=== PATIENT | female | born 1940 | race Caucasian/White ===

== ENCOUNTER 2016-04-01 11:50 | Outpatient (RCR) | payer MEDICARE, MEDICAID ==
[~2016-04-01 11:50] MED LIST: AMIO200T2 PO; AMLO5TAB2 PO; ASCO-262 PO; ASPI-586 PO; ATOR40TA70 PO; CHOL500049 PO; CINA60TA PO; CLOM50CA2 PO; ESZO1TAB11; LISI10TA2 PO; METO-333 PO; MULT1TAB65 PO; NITR0.4T39 SL; OMEP20CA12 PO; SEVE800T7 PO; SODI454P4; WARF2TAB PO; WARF3TAB6 PO
--- OUTSIDE RECORDS SUMMARY | 2016-04-01 11:54 | XMS REPORT | Continuity of Care Document ---
Author Author [facility] Organization [facility] Address Unknown Phone Unavailable Care Team Providers Care Imaging Clerk Name Role Phone Aric Escoto PCP [phone] Source Comments Some departments are not documenting in the electronic medical record. If you do not see the information that you expected, contact Release of Information in the Health Information Management department at [phone] for further assistance in locating additional records.[facility] Active Allergies and Adverse Reactions Allergen Noted Date Severity Reactions Comments Betadine 10/20/2012 RASH Pcn 10/20/2012 RASH Zantac 10/20/2012 RASH Current Medications Prescription Sig. Disp. Refills Start End Date Status Date clomiPRAMINE(+) Take 100 mg by mouth at Active (ANAFRANIL) 50 mg capsule bedtime daily. cinacalcet (SENSIPAR) 90 Take 90 mg by mouth daily Active mg with breakfast. nebivolol (BYSTOLIC) 10 Take 10 mg by mouth Active mg tablet daily. atorvastatin (LIPITOR) 20 Take 20 mg by mouth Active mg tablet daily. aspirin EC 81 mg tablet Take 81 mg by mouth Active daily. Active Problems Problem Noted Date Hypertension 10/20/2012 Hyperlipidemia 10/20/2012 Pre-transplant evaluation for ESRD (end stage renal disease) 10/20/2012 Bipolar 1 disorder (HCC) 10/20/2012 OCD (obsessive compulsive disorder) 10/20/2012 GERD (gastroesophageal reflux disease) 10/20/2012 Type 2 diabetes mellitus (HCC) 10/20/2012 Overview: Diet controlled CVA (cerebral infarction) 10/20/2012 Overview: Subcortical infarct (L) Social History Tobacco Use Types Packs/Day Years Used Date Never Smoker Alcohol Use Drinks/Week oz/Week Comments No Last Filed Vital Signs Vital Sign Reading Time Taken Blood Pressure 148/76 10/21/2012 8:46 AM CDT Pulse 84 10/21/2012 8:46 AM CDT Temperature - - Respiratory Rate - - Height 1.651 m (5' 5") 10/21/2012 11:12 AM CDT Weight 54.432 kg (120 lb) 10/21/2012 11:12 AM CDT Body Mass Index 19.97 10/21/2012 11:12 AM CDT Oxygen Saturation - - Plan of Care Health Maintenance Due Date Last Done Comments Physical (Comprehensive) 06/18/1947 Exam Pertussis Vaccine [birth year]/1951 Tetanus Vaccine 1957 Colorectal Cancer 1990 Screening Shingles Vaccine 2000 Osteoporosis Screening 2005 Prevnar/Pneumovax (#1) 2005 Influenza Vaccine 11/28/2015 Results from Last 3 Months Not on file
== END 2016-06-30 | disposition home or self-care (01) ==
LOC: CARD 11:50
PROVIDERS: ATTEND Internal Medicine Interventional Cardiology
DX: I48.91 Unspecified atrial fibrillation (principal); I35.1 Nonrheumatic aortic (valve) insufficiency; I27.2 Other secondary pulmonary hypertension
CPT/HCPCS: 93225; 93226

== ENCOUNTER 2016-10-25 08:05 | Emergency (ER) | payer MEDICARE, MEDICAID ==
[~2016-10-25] VITALS: Ht 162.6 cm; Wt 59.0 kg
[2016-10-25] MEDS ORDERED: NS (IVPB) 250 ML IV ONE (08:32)
--- NOTE | 2016-10-25 08:32 | ED General ---
General Chief Complaint: Catheter/Drain/Tube Problems Stated Complaint: DIALYSIS PORT BLEEDING Nursing Triage Note: Pt woke up in the middle of the night with bleeding to right arm shunt. Hx of dialysis. Nursing Sepsis Screen: No Definite Risk Source of Information: Patient, Family (brother) Exam Limitations: No Limitations History of Present Illness Time Seen by Provider: 08:27 Initial Comments Patient has ER by private conveyance with her brother with a chief complaint of waking up this morning feeling wet and had some bleeding from her right arm dialysis shunt. She has been on dialysis Wednesday for about 10 years. She's never has had before. She has not had any bleeding in the urine or chest pain or shortness of breath. However spell little winded walking in today. She feels a little weak and tired this morning. She does have a history of being chronically anemic. She is not having he murmurs chills nausea vomiting or pain anywhere. And the bleeding is stopped with a small dressing applied at home. She lives alone. Allergies and Home Medications Allergies Coded Allergies: Penicillins (Verified Allergy, Unknown, 02/03/16) Sulfa (Sulfonamide Antibiotics) (Verified Allergy, Unknown, 02/03/16) Home Medications Amiodarone HCl 200 Mg Tablet, 200 MG PO BID, (Reported) Atorvastatin Calcium 40 Mg Tablet, 40 MG PO DAILY, (Reported) Cinacalcet HCl 60 Mg Tablet, 60 MG PO BID, (Reported) Clomipramine HCl 50 Mg Capsule, 50 MG PO BID, (Reported) Metoprolol Tartrate 25 Mg Tablet, 25 MG PO BID, (Reported) HAS NOT BEEN TAKING PRESCRIBED RECENTLY BECAUSE OF LOW BLOOD PRESSURE LAST FILLED #180 08-19-15 Sevelamer Carbonate 800 Mg Tablet, 1,600 MG PO TIDWM, (Reported) TAKES 2 (800MG) TABLETS Warfarin Sodium 3 Mg Tablet, 3 MG PO DAILY, (Reported) Constitutional: No chills, No diaphoresis, No dizziness, No fever, malaise, No weakness Respiratory: No short of breath Cardiovascular: No chest pain, No palpitations, No syncope Gastrointestinal: No constipation, No diarrhea, No nausea Genitourinary: No discharge, No dysuria Skin: see HPI, No pruritus, No rash Psychiatric/Neurological: Denies Headache, Denies Numbness Past Ejbfwbx-Ckhjgu-Vytzxh Hx Patient Social History Alcohol Use: Denies Use Recreational Drug Use: No Smoking Status: Never a Smoker Recent Foreign Travel: No Contact w/Someone Who Travel: No Recent Infectious Disease Expo: No Recent Hopitalizations: No Immunizations Up To Date Date of Pneumonia Vaccine: Jan 04, 2012 Date of Influenza Vaccine: Jan 31, 2016 Seasonal Allergies Seasonal Allergies: No Surgeries HX Surgeries: Yes (DIALYSIS GRAFT/SHUNT RIGHT UPPER ARM; RIGHT KNEE TUMOR REMOVAL ) Surgeries: Dialysis, Vascular Surgery Respiratory Hx Respiratory Disorders: No Cardiovascular Hx Cardiac Disorders: Yes Cardiac Disorders: Heart Murmur Neurological Hx Neurological Disorders: No Reproductive System Hx Reproductive Disorders: No Genitourinary Hx Genitourinary Disorders: Yes Genitourinary Disorders: Renal Failure, Dialysis Gastrointestinal Hx Gastrointestinal Disorders: No Musculoskeletal Hx Musculoskeletal Disorders: No Endocrine Hx Endocrine Disorders: No HEENT HX ENT Disorders: No Cancer Hx Cancer: No Psychosocial Hx Psychiatric Problems: No Integumentary HX Skin/Integumentary Disorder: No Blood Transfusions Hx Blood Disorders: No Adverse Reaction to a Blood Tr: No Family Medical History Significant Family History: No Pertinent Family Hx Physical Exam Vital Signs Vital Sign - Last 12Hours 10/25/16 08:25 Temp 98.1 Pulse 70 Resp 18 B/P (MAP) 136/60 O2 Delivery Room Air Capillary Refill : Less Than 3 Seconds General Appearance: No Apparent Distress, WD/WN Respiratory: Chest Non Tender, Lungs Clear, Normal Breath Sounds Cardiovascular: Regular Rate, Rhythm, No Edema, Normal Peripheral Pulses, Systolic Murmur, Other (very palpable thrill over all parts of the AV fistula on the right arm) Gastrointestinal: Non Tender, Soft Extremity: Normal Capillary Refill, Non Tender Neurologic/Psychiatric: Alert, Oriented x3 Skin: Normal Color, Warm/Dry, Other (2 small punctate dry hemostatic wounds over the right AV fistula.) Progress/Results/Core Measures Results/Orders Lab Results Laboratory Tests Test 10/25/16 08:55 Range/Units White Blood Count 5.9 4.3-11.0 10^3/uL Red Blood Count 3.72 L 4.35-5.85 10^6/uL Hemoglobin 11.6 11.5-16.0 G/DL Hematocrit 36 35-52 % Mean Corpuscular Volume 97 80-99 FL Mean Corpuscular Hemoglobin 31 25-34 PG Mean Corpuscular Hemoglobin Concent 32 32-36 G/DL Red Cell Distribution Width 16.8 H 10.0-14.5 % Platelet Count 174 130-400 10^3/uL Mean Platelet Volume 11.0 H 7.4-10.4 FL Neutrophils (%) (Auto) 67 42-75 % Lymphocytes (%) (Auto) 13 12-44 % Monocytes (%) (Auto) 10 0-12 % Eosinophils (%) (Auto) 9 0-10 % Basophils (%) (Auto) 1 0-10 % Neutrophils # (Auto) 3.9 1.8-7.8 X 10^3 Lymphocytes # (Auto) 0.8 L 1.0-4.0 X 10^3 Monocytes # (Auto) 0.6 0.0-1.0 X 10^3 Eosinophils # (Auto) 0.5 H 0.0-0.3 10^3/uL Basophils # (Auto) 0.1 0.0-0.1 10^3/uL Prothrombin Time 17.2 H 12.2-14.7 SEC INR Comment 1.4 0.8-1.4 Activated Partial Thromboplast Time 30 24-35 SEC Sodium Level 137 135-145 MMOL/L Potassium Level 5.4 H 3.6-5.0 MMOL/L Chloride Level 96 L 98-107 MMOL/L Carbon Dioxide Level 30 21-32 MMOL/L Anion Gap 11 5-14 MMOL/L Blood Urea Nitrogen 47 H 7-18 MG/DL Creatinine 4.43 H 0.60-1.30 MG/DL Estimat Glomerular Filtration Rate 10 BUN/Creatinine Ratio 11 Glucose Level 118 H 70-105 MG/DL Calcium Level 10.5 H 8.5-10.1 MG/DL Magnesium Level 3.0 H 1.8-2.4 MG/DL Total Bilirubin 0.4 0.1-1.0 MG/DL Aspartate Amino Transf (AST/SGOT) 20 5-34 U/L Alanine Aminotransferase (ALT/SGPT) 14 0-55 U/L Alkaline Phosphatase 80 40-136 U/L Troponin I < 0.30 <0.30 NG/ML Total Protein 6.8 6.4-8.2 GM/DL Albumin 3.7 3.2-4.5 GM/DL My Orders Orders - ENRICO LINDSEY Cbc With Automated Diff (10/25/16 08:32) Comprehensive Metabolic Panel (10/25/16 08:32) Magnesium (10/25/16 08:32) Protime With Inr (10/25/16 08:32) Partial Thromboplastin Time (10/25/16 08:32) Troponin I (10/25/16 08:32) Saline Lock/Iv-Start (10/25/16 08:32) Ns (Ivpb) (Sodium Chloride 0.9%) (10/25/16 08:32) Type And Screen (10/25/16 08:32) Medications Given in ED Current Medications Medications Dose Ordered Sig/Nisha Route Start Time Stop Time Status Last Admin Dose Admin Sodium Chloride 250 ml @ 0 mls/hr Q0M ONCE IV 10/25/16 08:32 10/25/16 08:36 DC 10/25/16 09:14 0 MLS/HR Vital Signs/I&O Vital Sign - Last 12Hours 10/25/16 08:25 Temp 98.1 Pulse 70 Resp 18 B/P (MAP) 136/60 O2 Delivery Room Air Blood Pressure Mean: 85 Progress Note : Time: 09:22 Progress Note She's had a small bleed after being cannulae Wednesday morning for her hemodialysis. We'll just make sure that her PT/INR is okay her platelets are okay and is she's not bled out enough to be hemodynamically significant. Initially her hemoglobin is 11.6 which is fine. The blood for the type and screen hemolyzed so we'll just cancel that. Departure Impression Impression: Primary Impression: AV shunt malfunction Qualified Codes: T82.591A - Other mechanical complication of surgically created arteriovenous shunt, initial encounter Disposition: 01 HOME, SELF-CARE Condition: Stable Departure-Patient Inst. Decision time for Depature: 10:13 Referrals: NALLELY SOLIMAN MD (PCP/Family) Primary Care Physician Patient Instructions: Arteriovenous Shunt (DC) Add. Discharge Instructions: Your bleeding has appeared to stop. You may keep the dressing on until it falls off in the shower tonight. If you have any rebleeding you should present to your primary care physician tomorrow. If you have any new symptoms such as chest pain or shortness of breath you can return to the ER. If you do have bleeding apply direct firm pressure directly over the site and hold the arm above the level of your heart for 20 minutes. If you cannot get the bleeding under control then you may return to the ER. All discharge instructions reviewed with patient and/or family. Voiced understanding. Copy Copies To 1: NALLELY SOLIMAN MD, TITUS J Oct 25, 2016 08:32
[2016-10-25 09:11] LABS: BASOPHILS # (AUTO) 0.1 10^3/uL (0.0-0.1); BASOPHILS % (AUTO) 1 % (0-10); EOSINOPHILS # (AUTO) 0.5 10^3/uL (0.0-0.3); EOSINOPHILS % (AUTO) 9 % (0-10); LYMPHOCYTES # (AUTO) 0.8 X 10^3 (1.0-4.0); LYMPHOCYTES % (AUTO) 13 % (12-44); MEAN CORPUSCULAR HEMOGLOBIN 31 PG (25-34); MEAN CORPUSCULAR HGB CONC 32 G/DL (32-36); MEAN CORPUSCULAR VOLUME 97 FL (80-99); MONOCYTES # (AUTO) 0.6 X 10^3 (0.0-1.0); MONOCYTES % (AUTO) 10 % (0-12); NEUTROPHILS # (AUTO) 3.9 X 10^3 (1.8-7.8); NEUTROPHILS % (AUTO) 67 % (42-75); PLATELET COUNT 174 10^3/uL (130-400); RED BLOOD COUNT 3.72 10^6/uL (4.35-5.85); RED CELL DISTRIBUTION WIDTH 16.8 % (10.0-14.5); WHITE BLOOD COUNT 5.9 10^3/uL (4.3-11.0)
[2016-10-25 09:20] LABS: INR 1.4 (0.8-1.4); PROTHROMBIN TIME PATIENT 17.2 SEC (12.2-14.7)
[2016-10-25 09:28] LABS: ALANINE AMINOTRANSFERASE 14 U/L (0-55); ALBUMIN 3.7 GM/DL (3.2-4.5); ANION GAP 11 MMOL/L (5-14); ASPARTATE AMINO TRANSFERASE 20 U/L (5-34); BILIRUBIN,TOTAL 0.4 MG/DL (0.1-1.0); BLOOD UREA NITROGEN 47 MG/DL (7-18); BUN/CREATININE RATIO 11; CALCIUM 10.5 MG/DL (8.5-10.1); CARBON DIOXIDE 30 MMOL/L (21-32); CHLORIDE 96 MMOL/L (98-107); CREATININE SERUM 4.43 MG/DL (0.60-1.30); GFR ESTIMATED 10; GLUCOSE 118 MG/DL (70-105); POTASSIUM 5.4 MMOL/L (3.6-5.0); SODIUM 137 MMOL/L (135-145); TOTAL PROTEIN 6.8 GM/DL (6.4-8.2)
[2016-10-25 09:34] LABS: TROPONIN I < 0.30 NG/ML (<0.30)
[2016-10-25 10:40] VITALS: BP 134/68
== END 2016-10-25 10:40 | disposition home or self-care (01) ==
LOC: EDUNIT# 08:05 → ER 08:07
DX: T82.591A Other mechanical complication of surgically created arteriovenous shunt, initial encounter (principal); D64.9 Anemia, unspecified; N18.6 End stage renal disease; Z79.01 Long term (current) 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s; Z99.2 Dependence on renal dialysis
CPT/HCPCS: 36415; 80053; 83735; 84484; 85025; 85610; 85730; 96360

== ENCOUNTER 2016-12-01 11:34 | Emergency (ER) | payer MEDICARE, MEDICAID ==
[~2016-12-01] VITALS: Ht 165.1 cm; Wt 52.2 kg
[2016-12-01 11:48] LABS: BASOPHILS % (AUTO) 0 % (0-10); EOSINOPHILS # (AUTO) 0.3 10^3/uL (0.0-0.3); EOSINOPHILS % (AUTO) 4 % (0-10); LYMPHOCYTES # (AUTO) 0.9 X 10^3 (1.0-4.0); LYMPHOCYTES % (AUTO) 13 % (12-44); MEAN CORPUSCULAR HEMOGLOBIN 31 PG (25-34); MEAN CORPUSCULAR HGB CONC 33 G/DL (32-36); MEAN CORPUSCULAR VOLUME 96 FL (80-99); MEAN PLATELET VOLUME 10.6 FL (7.4-10.4); MONOCYTES # (AUTO) 0.4 X 10^3 (0.0-1.0); MONOCYTES % (AUTO) 6 % (0-12); NEUTROPHILS # (AUTO) 5.2 X 10^3 (1.8-7.8); NEUTROPHILS % (AUTO) 76 % (42-75); PLATELET COUNT 188 10^3/uL (130-400); RED BLOOD COUNT 3.77 10^6/uL (4.35-5.85); RED CELL DISTRIBUTION WIDTH 15.8 % (10.0-14.5); WHITE BLOOD COUNT 6.9 10^3/uL (4.3-11.0)
[2016-12-01 12:06] LABS: ALBUMIN 4.1 GM/DL (3.2-4.5); BILIRUBIN,TOTAL 0.4 MG/DL (0.1-1.0); CALCIUM 8.3 MG/DL (8.5-10.1); CREATININE SERUM 2.61 MG/DL (0.60-1.30); POTASSIUM 3.8 MMOL/L (3.6-5.0); TOTAL PROTEIN 7.2 GM/DL (6.4-8.2)
[2016-12-01 12:16] LABS: MAGNESIUM 2.2 MG/DL (1.8-2.4); hs C REACTIVE PROTEIN 0.14 MG/DL (0.00-0.50)
--- NOTE | 2016-12-01 12:20 | ED General ---
General Chief Complaint: General Problems/Pain Stated Complaint: POSSIBLE SEIZURES Nursing Triage Note: PT TO TRIAGE WINDOW CO OF HAVING EPISODES OF SHAKING STARTED YESTERDAY, PT IS DIALYSIS PT AND GETS TREATMENT TU THUS SAT. PT IS ALERT AND DENIES PAIN AT THIS X Nursing Sepsis Screen: No Definite Risk Source of Information: Patient Exam Limitations: No Limitations History of Present Illness Time Seen by Provider: 11:40 Initial Comments Here by POV with report of muscle twitching. Apparently this was worse during dialysis today. She has had episodes of this started yesterday. They thought that maybe her blood sugar was low and gave her juice in that made things better. She has worsening twitching today. There was concern about seizure but she is fully awake during all of this and its more of an involuntary twitching of her arms and legs. Denies recent injury or other problems. Timing/Duration: 2-3 Days, Getting Worse, Intermittent Severity: Mild Associated Systoms: No Chest Pain, No Cough, No Fever/Chills, No Nausea/ Vomiting, No Shortness of Air, No Weakness Allergies and Home Medications Allergies Coded Allergies: povidone-iodine (Verified Allergy, Mild, 12/01/16) ranitidine (Verified Allergy, Mild, 12/01/16) soap (Verified Allergy, Mild, 12/01/16) tetracycline (Verified Allergy, Mild, 12/01/16) Penicillins (Verified Allergy, Unknown, 02/03/16) Sulfa (Sulfonamide Antibiotics) (Verified Allergy, Unknown, 02/03/16) Uncoded Allergies: NARCOTIC (Allergy, Mild, 12/01/16) Home Medications Amiodarone HCl 200 Mg Tablet, 200 MG PO BID, (Reported) Atorvastatin Calcium 40 Mg Tablet, 40 MG PO DAILY, (Reported) Cinacalcet HCl 60 Mg Tablet, 60 MG PO BID, (Reported) Clomipramine HCl 50 Mg Capsule, 50 MG PO BID, (Reported) Metoprolol Tartrate 25 Mg Tablet, 25 MG PO BID, (Reported) HAS NOT BEEN TAKING PRESCRIBED RECENTLY BECAUSE OF LOW BLOOD PRESSURE LAST FILLED #180 08-19-15 Sevelamer Carbonate 800 Mg Tablet, 1,600 MG PO TIDWM, (Reported) TAKES 2 (800MG) TABLETS Warfarin Sodium 3 Mg Tablet, 6 MG PO DAILY, (Reported) Constitutional: see HPI, No chills, No fever EENTM: no symptoms reported Respiratory: no symptoms reported Cardiovascular: no symptoms reported Gastrointestinal: no symptoms reported Musculoskeletal: see HPI, muscle twitching, No muscle weakness Skin: no symptoms reported Psychiatric/Neurological: No Symptoms Reported All Other Systems Reviewed Negative Unless Noted: Yes Past Zmadqsx-Yqrtkn-Qpvjnp Hx Patient Social History Alcohol Use: Denies Use Recreational Drug Use: No Smoking Status: Never a Smoker Recent Foreign Travel: No Contact w/Someone Who Travel: No Recent Infectious Disease Expo: No Recent Hopitalizations: No Physical Abuse: No Sexual Abuse: No Immunizations Up To Date Date of Pneumonia Vaccine: Jan 04, 2012 Date of Influenza Vaccine: Jan 31, 2016 Seasonal Allergies Seasonal Allergies: No Surgeries History of Surgeries: Yes (DIALYSIS GRAFT/SHUNT RIGHT UPPER ARM; RIGHT KNEE TUMOR REMOVAL ) Surgeries: Dialysis, Vascular Surgery Respiratory History of Respiratory Disorde: No Currently Using CPAP: No Currently Using BIPAP: No Cardiovascular History of Cardiac Disorders: Yes Cardiac Disorders: Heart Murmur Neurological History of Neurological Disord: No Reproductive System Hx Reproductive Disorders: No Genitourinary Genitourinary Disorders: Renal Failure, Dialysis Gastrointestinal History of Gastrointestinal Di: No Musculoskeletal History of Musculoskeletal Dis: No Endocrine History of Endocrine Disorders: No Cancer History of Cancer: No Psychosocial History of Psychiatric Problem: No Suicide Risk Score: 0 Integumentary History of Skin or Integumenta: No Blood Transfusions History of Blood Disorders: No Adverse Reaction to a Blood Tr: No Reviewed Nursing Assessment Reviewed/Agree w Nursing PMH: Yes Family Medical History Significant Family History: No Pertinent Family Hx Physical Exam Vital Signs Vital Sign - Last 12Hours 12/01/16 11:43 Temp 97.8 Pulse 73 Resp 18 B/P (MAP) 134/52 Pulse Ox 92 O2 Delivery Room Air Capillary Refill : Less Than 3 Seconds General Appearance: No Apparent Distress, WD/WN, Other (intermittent involuntary muscle twitching to the upper and lower extremities noted.) HEENT: PERRL/EOMI, Pharynx Normal Neck: Non Tender, Supple Respiratory: Lungs Clear, Normal Breath Sounds Cardiovascular: Regular Rate, Rhythm, No Murmur Gastrointestinal: Non Tender, Soft Back: Normal Inspection, No CVA Tenderness, No Vertebral Tenderness Extremity: Normal Range of Motion, Non Tender Neurologic/Psychiatric: Alert, Oriented x3, No Motor/Sensory Deficits Skin: Normal Color, Warm/Dry Progress/Results/Core Measures Results/Orders Lab Results Laboratory Tests Test 12/01/16 11:38 12/01/16 11:40 Range/Units Magnesium Level 2.2 1.8-2.4 MG/DL C-Reactive Protein High Sensitivity 0.14 0.00-0.50 MG/DL Thyroid Stimulating Hormone (TSH) 2.23 0.35-4.94 UIU/ML White Blood Count 6.9 4.3-11.0 10^3/uL Red Blood Count 3.77 L 4.35-5.85 10^6/uL Hemoglobin 11.8 11.5-16.0 G/DL Hematocrit 36 35-52 % Mean Corpuscular Volume 96 80-99 FL Mean Corpuscular Hemoglobin 31 25-34 PG Mean Corpuscular Hemoglobin Concent 33 32-36 G/DL Red Cell Distribution Width 15.8 H 10.0-14.5 % Platelet Count 188 130-400 10^3/uL Mean Platelet Volume 10.6 H 7.4-10.4 FL Neutrophils (%) (Auto) 76 H 42-75 % Lymphocytes (%) (Auto) 13 12-44 % Monocytes (%) (Auto) 6 0-12 % Eosinophils (%) (Auto) 4 0-10 % Basophils (%) (Auto) 0 0-10 % Neutrophils # (Auto) 5.2 1.8-7.8 X 10^3 Lymphocytes # (Auto) 0.9 L 1.0-4.0 X 10^3 Monocytes # (Auto) 0.4 0.0-1.0 X 10^3 Eosinophils # (Auto) 0.3 0.0-0.3 10^3/uL Basophils # (Auto) 0.0 0.0-0.1 10^3/uL Sodium Level 140 135-145 MMOL/L Potassium Level 3.8 3.6-5.0 MMOL/L Chloride Level 93 L 98-107 MMOL/L Carbon Dioxide Level 33 H 21-32 MMOL/L Anion Gap 14 5-14 MMOL/L Blood Urea Nitrogen 14 7-18 MG/DL Creatinine 2.61 H 0.60-1.30 MG/DL Estimat Glomerular Filtration Rate 18 BUN/Creatinine Ratio 5 Glucose Level 112 H 70-105 MG/DL Calcium Level 8.3 L 8.5-10.1 MG/DL Total Bilirubin 0.4 0.1-1.0 MG/DL Aspartate Amino Transf (AST/SGOT) 19 5-34 U/L Alanine Aminotransferase (ALT/SGPT) 17 0-55 U/L Alkaline Phosphatase 83 40-136 U/L Total Protein 7.2 6.4-8.2 GM/DL Albumin 4.1 3.2-4.5 GM/DL My Orders Orders - SANDRA MASON MD Hs C Reactive Protein (12/01/16 11:45) Magnesium (12/01/16 11:45) Thyroid Stimulating Hormone (12/01/16 11:45) Ct Head Wo (12/01/16 13:39) Vital Signs/I&O Vital Sign - Last 12Hours 12/01/16 11:43 Temp 97.8 Pulse 73 Resp 18 B/P (MAP) 134/52 Pulse Ox 92 O2 Delivery Room Air Blood Pressure Mean: 79 Progress Note : Progress Note Seen and evaluated. IV, labs, chest x-ray and EKG ordered. UA ordered and we will evaluate if she is able to give sample. Patient typically only urinates twice daily due to the renal failure. Monitor patient. 1415: CT head ordered and completed due to patient's report that symptoms improve when she landed down and better worse when sitting up at times. Results below. Overall no significant acute findings. This may be related to medication side effect. She will be referred back to her physician for review of her medications and adjustments as indicated. Patient and family verbalize understanding and agreement with plan. ECG Initial ECG Impression Date: Dec 01, 2016 Initial ECG Impression Time: 11:49 Initial ECG Rate: 72 Initial ECG Rhythm: Normal Sinus Comment Sinus rhythm with normal axis. No evidence of ST elevation FL. Left ventricular hypertrophy noted. No previous available for comparison. Interpreted by me. Diagnostic Imaging Diagonstic Imaging: Xray Plain Films/CT/US/NM/MRI: chest Comments NAME: DARNELL FRANKLIN MED REC#: [id number] PT STATUS: REG ER : 1940 PHYSICIAN: ANDREW SIERRA APRN ADMIT DATE: 12/01/16/ER Signed Date of Exam: 12/01/16 CHEST 1 VIEW, AP/PA ONLY INDICATION: Shaking, questionable seizure. Comparison made with prior examination from 02/12/16. FINDINGS: There's cardiomegaly. There is some venous congestion. There is a focal infiltrate in the right lung base. There is no pleural effusion or pneumothorax. The mediastinum is unremarkable. IMPRESSION: Unchanged focal infiltrate in the right lung base which may be chronic. Cardiomegaly and mild venous congestion. Dictated by: Dictated on workstation # [id number] Dict: 12/01/16 1214 Trans: 12/01/16 1338 Interpreted by: JOSE BAHENA MD Electronically signed by: JOSE BAHENA MD 12/01/16 1338 Diagonstic Imaging: CT Plain Films/CT/US/NM/MRI: head Comments E: DARNELL FRANKLIN MED REC#: [id number] PT STATUS: REG ER : 1940 PHYSICIAN: SANDRA MASON MD ADMIT DATE: 12/01/16/ER Signed Date of Exam: 12/01/16 CT HEAD WO PROCEDURE: CT head without contrast. TECHNIQUE: Multiple contiguous axial images were obtained through the brain without the use of intravenous contrast. INDICATION: Jerking and shaking with possible seizure. No prior examinations are available for comparison. FINDINGS: There is prominence of the ventricles and sulci. There is no hydrocephalus or cerebral edema. There is no midline shift or mass-effect. There is no intracranial mass, hemorrhage, or extra-axial fluid collection. There is some diffuse decreased attenuation of the periventricular white matter which is nonspecific. The visualized paranasal sinuses and mastoid air cells are clear. There are no regional areas of decreased attenuation appreciated to suggest an acute CVA. IMPRESSION: 1. No acute intracranial process. 2. Age-appropriate atrophy. 3. Decreased attenuation of the periventricular white matter which is nonspecific, however, likely reflects senescent change and/or chronic small vessel ischemic disease. Dictated by: Dictated on workstation # [id number] Dict: 12/01/16 1358 Trans: 12/01/16 1403 Interpreted by: JOSE BAHENA MD Electronically signed by: JOSE BAHENA MD 12/01/16 1403 Departure Impression Impression: Primary Impression: involuntary muscle twitching Disposition: 01 HOME, SELF-CARE Condition: Stable Departure-Patient Inst. Decision time for Depature: 14:21 Referrals: NALLELY SOLIMAN MD (PCP/Family) Primary Care Physician Patient Instructions: Muscle Spasms (DC) Add. Discharge Instructions: All discharge instructions reviewed with patient and/or family. Voiced understanding. We were unable to determine a cause of your muscle twitching or fasciculations. This may be related to the medications that you are on. It is important that he follow up with your Dr. for recheck and further evaluation within the next few days to discuss concerns and evaluate her medicines. Return for worse pain , fever, vomiting, weakness, breathing problems or other concerns as needed. Copy Copies To 1: NALLELY SOLIMAN MD, TIMOTHY D MD Dec 01, 2016 12:20
[2016-12-01 12:28] LABS: THYROID STIMULATING HORMONE 2.23 UIU/ML (0.35-4.94)
--- NOTE | 2016-12-01 14:01 | Diagnostic Imaging Report ---
PROCEDURE: CT head without contrast. TECHNIQUE: Multiple contiguous axial images were obtained through the brain without the use of intravenous contrast. INDICATION: Jerking and shaking with possible seizure. No prior examinations are available for comparison. FINDINGS: There is prominence of the ventricles and sulci. There is no hydrocephalus or cerebral edema. There is no midline shift or mass-effect. There is no intracranial mass, hemorrhage, or extra-axial fluid collection. There is some diffuse decreased attenuation of the periventricular white matter which is nonspecific. The visualized paranasal sinuses and mastoid air cells are clear. There are no regional areas of decreased attenuation appreciated to suggest an acute CVA. IMPRESSION: 1. No acute intracranial process. 2. Age-appropriate atrophy. 3. Decreased attenuation of the periventricular white matter which is nonspecific, however, likely reflects senescent change and/or chronic small vessel ischemic disease. Dictated by: Dictated on workstation # [id number]
[2016-12-01 15:04] VITALS: BP 134/52
== END 2016-12-01 15:03 | disposition home or self-care (01) ==
LOC: EDUNIT# 11:34 → ER 11:38
DX: R25.3 Fasciculation (principal); N18.6 End stage renal disease; Z99.2 Dependence on renal dialysis; Z79.01 Long term (current) 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s
CPT/HCPCS: 36415; 70450; 71010; 80053; 83735; 84443; 85025; 86141; 93005

== ENCOUNTER 2016-12-05 11:56 | Inpatient (IN) | payer MEDICARE, MEDICAID ==
[~2016-12-05] VITALS: Ht 165.1 cm; Wt 51.0 kg
--- OUTSIDE RECORDS SUMMARY | 2016-12-05 12:00 | XMS REPORT ---
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 056829 Problem Kidney failure N19 Active 63429385 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.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 288142774 Problem Chronic fatigue R53.82 Active 11538158 Problem End stage renal disease N18.6 Active 26526792 Problem Valvular heart disease I38 Active 361867 Problem 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 871181525 Problem 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 535427922 ALLERGIES Substance Reaction Event Type Date Status Zantac Unknown Drug Allergy Feb, Active Tetracycline HCl Unknown Drug Allergy Feb, Active Sulfamethoxazole-Trimethoprim Unknown Drug Allergy Feb, Active Penicillin V Potassium Unknown Drug Allergy Feb, Active Betadine Unknown Drug Allergy Feb, Active narcotics avoid them Non Drug Allergy Feb, Active SOCIAL HISTORY No smoking Hx information available PLAN OF CARE Activity Details Follow Up 2 Months with kalpana Reason: VITAL SIGNS Height 67 in 2016-03-19 Weight 111.9 lbs 2016-03-19 Temperature 97.8 degrees Fahrenheit 2016-03-19 Heart Rate 58 bpm 2016-03-19 Respiratory Rate 18 2016-03-19 BMI 17.52 kg/m2 2016-03-19 Blood pressure systolic 122 mmHg 2016-03-19 Blood pressure diastolic 67 mmHg 2016-03-19 MEDICATIONS Medication Instructions Dosage Frequency Start Date End Date Duration Status Amiodarone HCl 200 mg Orally twice a day 1 tablet 12h Active Renvela 800 MG Orally Three times a day 2 tablets 8h 20 Active ClomiPRAMINE HCl 50 mg Orally Once a day 2 capsules 24h Active Metoprolol Tartrate 25 MG Orally Twice a day 1 tablet with food 12h Active Coumadin 3 MG Orally Once a day along with the 1mg coumadin tablet 1 tablet Active Amiodarone HCl 200 TAKE 1 TABLET BY MOUTH TWICE DAILY 30 Active Coumadin 1 MG Orally Once a day along with the 3mg tablet 1 tablet 30 Active Sensipar 60 mg Orally Once a day 2 tablets 24h Active RESULTS Name Result Date Reference Range INR (IN HOUSE) 2016-03-19 INR 1.7 1.10 - 3.30 PREVIOUS INR 1.8 CURRENT COUMADIN DOSE NEW COUMADIN DOSE Lot # [id number] Exp date PROCEDURES Procedure Date Ordered Related Diagnosis Body Site PROTHROMBIN TIME Mar 19, 2016 [facility] VISIT ESTABLISHED PATIENT Mar 19, 2016 Office Visit, Est Pt., Level 4 Mar 19, 2016 IMMUNIZATIONS No Known Immunizations
--- OUTSIDE RECORDS SUMMARY | 2016-12-05 12:00 | XMS REPORT | Clinical Summary ---
Author Author [facility] Organization [facility] Address Unknown Phone Unavailable Care Team Providers Care Traveling Engineer Name Role Phone PCP Unavailable Source Comments Some departments are not documenting in the electronic medical record. If you do not see the information that you expected, contact Release of Information in the Health Information Management department at [phone] for further assistance in locating additional records.[facility] Allergies Active Allergy Reactions Severity Noted Date Comments Povidone-Iodine RASH 10/20/2012 Penicillins RASH 10/20/2012 Ranitidine Hcl RASH 10/20/2012 Current Medications Prescription Sig. Disp. Refills Start [...] (cerebral infarction) 10/20/2012 Overview: Subcortical infarct (L) Family History Medical History Relation Name Comments Hypertension Brother Hypertension Brother Coronary Artery Disease Father High Cholesterol Father Hypertension Father Seizures Father High Cholesterol Mother Hypertension Mother Stroke Mother Hypertension Sister Relation Name Status Comments Brother Alive Brother Alive Father Mother Sister Alive Social History Tobacco Use Types Packs/Day Years Used Date Never Smoker Alcohol Use Drinks/Week oz/Week Comments No Sex Assigned at Date Recorded Not on file Last Filed Vital Signs Vital Sign Reading Time Taken Blood Pressure 148/76 10/21/2012 8:46 AM CDT Pulse 84 10/21/2012 8:46 AM CDT Temperature - - Respiratory Rate - - Oxygen Saturation - - Inhaled Oxygen - - Concentration Weight 54.4 kg (120 lb) 10/21/2012 11:12 AM CDT Height 165.1 cm (5' 5") 10/21/2012 11:12 AM CDT Body Mass Index 19.97 10/21/2012 11:12 AM CDT Plan of Treatment Health Maintenance Due Date Last Done Comments PHYSICAL (COMPREHENSIVE) 06/18/1947 EXAM PERTUSSIS VACCINE 06/18/1951 TETANUS VACCINE 1957 SHINGLES VACCINE 2000 OSTEOPOROSIS SCREENING 2005 PREVNAR/PNEUMOVAX (#1) 2005 INFLUENZA VACCINE 11/27/2016 Results Not on filefrom Last 3 Months
--- OUTSIDE RECORDS SUMMARY | 2016-12-05 12:00 | XMS REPORT ---
Author Author OMAR CHAVEZ 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 026396 ALLERGIES Substance Reaction Event Type Date Status Zantac Unknown Drug Allergy Nov, Active Tetracycline HCl Unknown Drug Allergy Nov, Active Sulfamethoxazole-Trimethoprim Unknown Drug Allergy Nov, Active Penicillin V Potassium Unknown Drug Allergy Nov, Active Betadine Unknown Drug Allergy Nov, Active narcotics avoid them Non Drug Allergy Nov, Active SOCIAL HISTORY No smoking Hx information available PLAN OF CARE VITAL SIGNS Height 67 in 2015-12-19 Weight 112 lbs 2015-12-19 Heart Rate 62 bpm 2015-12-19 Respiratory Rate 16 2015-12-19 BMI 17.54 kg/m2 2015-12-19 Blood pressure systolic 90 mmHg 2015-12-19 Blood pressure diastolic 60 mmHg 2015-12-19 MEDICATIONS Medication Instructions Dosage Frequency Start Date End Date Duration Status Metoprolol Tartrate 25 MG Orally Twice a day 1 tablet with food 12h Active Lunesta 1 MG Orally hs, prn sleep 1 tablet immediately before bedtime Nov, Active Renvela 800 MG Orally Three times a day 2 tablets 8h Active ClomiPRAMINE HCl 50 mg Orally Once a day 2 capsules 24h Active Sensipar 60 mg Orally Once a day 2 tablets 24h Active Atorvastatin Calcium 40 MG Orally Once a day 1 tablet 24h Active RESULTS No Results PROCEDURES Procedure Date Ordered Related Diagnosis Body Site [facility] VISIT ESTABLISHED PATIENT Dec 19, 2015 Office Visit, Est Pt., Level 3 Dec 19, 2015 IMMUNIZATIONS No Known Immunizations
--- OUTSIDE RECORDS SUMMARY | 2016-12-05 12:00 | XMS REPORT ---
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
--- OUTSIDE RECORDS SUMMARY | 2016-12-05 12:00 | XMS REPORT ---
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 Problem Systolic ejection murmur I38 Active Problem Insomnia, unspecified type G47.00 Active Problem Kidney failure N19 Active Medications Medication Code System Code Instructions Start Date End Date Status Dosage Coumadin [facility] [address]-82 1 MG Orally Once a day along with the 3mg tablet Feb 25, 2016 1 tablet Procedures Procedure Coding System Code Date PROTHROMBIN TIME CPT-4 25865 Feb 25, 2016 Results Name Result Date Reference Range Unit Abnormality Flag INR (IN HOUSE) ----Exp date Feb [id number] ----Lot # [id number] ----INR 1.5 [id number] 1.10 - 3.30 ----PREVIOUS INR 1.5 [id number] ----CURRENT COUMADIN DOSE 3 mg qd [id number] ----NEW COUMADIN DOSE 4mg qd [id number] Summary Purpose [employer] Submission
--- OUTSIDE RECORDS SUMMARY | 2016-12-05 12:00 | XMS REPORT ---
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
--- OUTSIDE RECORDS SUMMARY | 2016-12-05 12:00 | XMS REPORT ---
Author Author OMAR CHAVEZ Organization [employer] Address Unknown Phone Unavailable Care Team Providers Care Network Operations Specialist Name Role Phone OMAR CHAVEZ CP Unavailable Allergies No Known Allergies Problems Problem Type Condition Code Onset Dates Condition Status Problem Hypotension, unspecified hypotension type I95.9 Active Problem Insomnia, unspecified type G47.00 Active Problem Atrial fibrillation, unspecified type I48.91 Active Problem Systolic ejection murmur I38 Active Assessment Atrial fibrillation, unspecified type I48.91 Active Problem Kidney failure N19 Active Problem 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
--- OUTSIDE RECORDS SUMMARY | 2016-12-05 12:01 | XMS REPORT ---
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
--- OUTSIDE RECORDS SUMMARY | 2016-12-05 12:01 | XMS REPORT ---
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 230857565 Problem Chronic fatigue R53.82 Active 74451000 Problem End stage renal disease N18.6 Active 55930381 Problem Valvular heart disease I38 Active 379321 Problem 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
--- OUTSIDE RECORDS SUMMARY | 2016-12-05 12:01 | XMS REPORT ---
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 923657670 Problem Chronic fatigue R53.82 Active 11223785 Problem End stage renal disease N18.6 Active 45072591 Problem Valvular heart disease I38 Active 363278 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
--- OUTSIDE RECORDS SUMMARY | 2016-12-05 12:01 | XMS REPORT ---
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
--- OUTSIDE RECORDS SUMMARY | 2016-12-05 12:01 | XMS REPORT ---
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 942889180 Problem Chronic fatigue R53.82 Active 83727542 Problem End stage renal disease N18.6 Active 59274821 Problem Valvular heart disease I38 Active 351985 Problem 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
--- OUTSIDE RECORDS SUMMARY | 2016-12-05 12:01 | XMS REPORT ---
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 813841 Problem Insomnia, unspecified type G47.00 Active 608132663 Problem exterminator termite 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 Z79.01 Active 229057532 Problem Chronic fatigue R53.82 Active 55720825 Problem End stage renal disease N18.6 Active 61998574 Problem Valvular heart disease I38 Active 174543 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
--- OUTSIDE RECORDS SUMMARY | 2016-12-05 12:01 | XMS REPORT ---
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
--- OUTSIDE RECORDS SUMMARY | 2016-12-05 12:01 | XMS REPORT ---
Author Author NALLELY SOLIMAN Organization [employer] Address Unknown Phone Unavailable Care Team Providers Care Underwriting Account Representative Name Role Phone NALLELY SOLIMAN CP Unavailable [...] Active Problem Kidney failure N19 Active Medications No Known Medications Results No Known Results Summary Purpose [employer] Submission
--- OUTSIDE RECORDS SUMMARY | 2016-12-05 12:01 | XMS REPORT ---
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
--- OUTSIDE RECORDS SUMMARY | 2016-12-05 12:01 | XMS REPORT ---
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
--- OUTSIDE RECORDS SUMMARY | 2016-12-05 12:01 | XMS REPORT ---
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 009567 Assessment Atrial fibrillation, unspecified type I48.91 Feb, Active 35042472 Problem End stage renal disease N18.6 Active 53342289 Problem Valvular heart disease I38 Active 630882 Problem Insomnia, unspecified type G47.00 Active 570682050 Problem Kidney failure N19 Active 57281481 Problem Atrial fibrillation, unspecified type I48.91 Active 15147429 Problem Hypotension, unspecified hypotension type I95.9 Active 68268644 ALLERGIES Unknown Allergies SOCIAL HISTORY No smoking Hx information available PLAN OF CARE VITAL SIGNS MEDICATIONS Unknown Medications RESULTS No Results PROCEDURES Procedure Date Ordered Related Diagnosis Body Site PROTHROMBIN TIME Mar 03, 2016 IMMUNIZATIONS No Known Immunizations
--- OUTSIDE RECORDS SUMMARY | 2016-12-05 12:01 | XMS REPORT ---
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 579735 Assessment Atrial fibrillation, unspecified type I48.91 Jan, Active 02006586 Problem End stage renal disease N18.6 Active 97815912 Problem Valvular heart disease I38 Active 857734 Problem Insomnia, unspecified type G47.00 Active 798241334 Problem Kidney failure N19 Active 01985236 Problem Atrial fibrillation, unspecified type I48.91 Active 74865272 Problem Hypotension, unspecified hypotension type I95.9 Active 92761455 ALLERGIES Substance Reaction Event Type Date Status Zantac Unknown Drug Allergy Jan, Active Tetracycline HCl Unknown Drug Allergy Jan, Active Sulfamethoxazole-Trimethoprim Unknown Drug Allergy Jan, Active Penicillin V Potassium Unknown Drug Allergy Jan, Active Betadine Unknown Drug Allergy Jan, Active narcotics avoid them Non Drug Allergy Jan, Active SOCIAL HISTORY No smoking Hx information available PLAN OF CARE VITAL SIGNS Height 67 in 2016-02-18 Weight 116.2 lbs 2016-02-18 Heart Rate 64 bpm 2016-02-18 Respiratory Rate 16 2016-02-18 BMI 18.20 kg/m2 2016-02-18 Blood pressure systolic 116 mmHg 2016-02-18 Blood pressure diastolic 52 mmHg 2016-02-18 MEDICATIONS Medication Instructions Dosage Frequency Start Date End Date Duration Status Metoprolol Tartrate 25 MG Orally Twice a day 1 tablet with food 12h Active Amiodarone HCl 200 mg Orally twice a day 1 tablet 12h Active Sensipar 60 mg Orally Once a day 2 tablets 24h Active ClomiPRAMINE HCl 50 mg Orally Once a day 2 capsules 24h Active Renvela 800 MG Orally Three times a day 2 tablets 8h 20 Active Coumadin 3 MG Orally Once a day 1 tablet 24h Active RESULTS No Results PROCEDURES Procedure Date Ordered Related Diagnosis Body Site PROTHROMBIN TIME Feb 18, 2016 [facility] VISIT ESTABLISHED PATIENT Feb 18, 2016 Office Visit, Est Pt., Level 4 Feb 18, 2016 IMMUNIZATIONS No Known Immunizations
--- NOTE | 2016-12-05 12:09 | ED Fall/Injury ---
General Stated Complaint: FALL Source: patient, EMS History of Present Illness Time seen by provider: 12:00 Initial Comments PT ARRIVES VIA EMS FROM HOME--PT LIVES ALONE. [id number]-[id number]-PKN AND SISTER ARE PT' S DPOA'S. AND [facility] IS HERE WITH PT. 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 STATES SHE WAS OUTSIDE AND FELL, LANDING ON LEFT SIDE IS NOT SURE WHAT MADE HER FALL, BUT DID NOT HIT HEAD AND DID NOT HAVE LOSS OF CONSCIOUSNESS. NO CHEST PAIN, PALPITATIONS, DIZZINESS OR SHORTNESS OF BREATH NO NECK OR BACK PAIN NO PARESTHESIAS OR MOTOR DEFICITS C/O LEFT WRIST AND LEFT HIP PAIN--ONLY WITH MOVEMENTS OF THESE AREAS HAS HAD PRIOR LEFT WRIST FRACTURE ,NO SURGERY REQUIRED. SEEN IN ER 12/01/16 FOR MUSCLE TWITCHING WHILE SHE WAS IN DIALYSIS--POSSIBLY MEDICATION-RELATED? PT HAD JUST RETURNED HOME FROM DIALYSIS WHEN SHE FELL PT ALSO HAD 2 MEDICATION CHANGES IN THE LAST WEEK PCP: DR. SOLIMAN AT [facility] EMERGENCY MANAGEMENT SPECIALIST: DR. ARORA Allergies and Home Medications Allergies Coded Allergies: povidone-iodine (Verified Allergy, Mild, 12/05/16) ranitidine (Verified Allergy, Mild, 12/05/16) soap (Verified Allergy, Mild, 12/05/16) tetracycline (Verified Allergy, Mild, 12/05/16) Penicillins (Verified Allergy, Unknown, 12/05/16) Sulfa (Sulfonamide Antibiotics) (Verified Allergy, Unknown, 12/05/16) Uncoded Allergies: NARCOTIC (Allergy, Mild, 12/01/16) Home Medications Amiodarone HCl 200 Mg Tablet, 200 MG PO BID, (Reported) Atorvastatin Calcium 40 Mg Tablet, 40 MG PO DAILY, (Reported) Cinacalcet HCl 60 Mg Tablet, 60 MG PO BID, (Reported) Clomipramine HCl 50 Mg Capsule, 50 MG PO BID, (Reported) Metoprolol Tartrate 25 Mg Tablet, 25 MG PO BID, (Reported) HAS NOT BEEN TAKING PRESCRIBED RECENTLY BECAUSE OF LOW BLOOD PRESSURE LAST FILLED #180 08-19-15 Sevelamer Carbonate 800 Mg Tablet, 1,600 MG PO TIDWM, (Reported) TAKES 2 (800MG) TABLETS Warfarin Sodium 3 Mg Tablet, 6 MG PO DAILY, (Reported) Constitutional: no symptoms reported Eyes: No Symptoms Reported Ears, Nose, Mouth, Throat: no symptoms reported Respiratory: no symptoms reported Cardiovascular: no symptoms reported Gastrointestinal: no symptoms reported Genitourinary: no symptoms reported Musculoskeletal: see HPI Skin: no symptoms reported Psychiatric/Neurological: No Symptoms Reported Past Zdzisft-Dvcrzw-Ldnlom Hx Patient Social History Alcohol Use: Denies Use Recreational Drug Use: No Smoking Status: Never a Smoker Recent Hopitalizations: No Immunizations Up To Date Date of Pneumonia Vaccine: Jan 04, 2012 Date of Influenza Vaccine: Jan 31, 2016 Seasonal Allergies Seasonal Allergies: No Surgeries History of Surgeries: Yes (DIALYSIS GRAFT/SHUNT RIGHT UPPER ARM; RIGHT KNEE TUMOR REMOVAL ; LEFT FEMUR DELONTE) Surgeries: Dialysis, Orthopedic, Vascular Surgery Respiratory History of Respiratory Disorde: No Currently Using CPAP: No Currently Using BIPAP: No Cardiovascular History of Cardiac Disorders: Yes Cardiac Disorders: Atrial Fibrillation, Heart Murmur, High Cholesterol, Hypertension, Irregular Heartbeat Neurological History of Neurological Disord: No Reproductive System Hx Reproductive Disorders: No Genitourinary History of Genitourinary Disor: Yes Genitourinary Disorders: Renal Failure, Dialysis Gastrointestinal History of Gastrointestinal Di: No Musculoskeletal History of Musculoskeletal Dis: Yes (LEFT WRIST FRACTURE) Endocrine History of Endocrine Disorders: No HEENT History of HEENT Disorders: No Cancer History of Cancer: No Psychosocial History of Psychiatric Problem: No Integumentary History of Skin or Integumenta: No Blood Transfusions History of Blood Disorders: No Adverse Reaction to a Blood Tr: No Family Medical History Significant Family History: No Pertinent Family Hx Physical Exam Vital Signs Vital Sign - Last 12Hours 12/05/16 12/05/16 11:56 12:20 Temp 98.1 Pulse 72 Resp 16 B/P (MAP) 106/46 Pulse Ox 98 O2 Delivery Room Air Capillary Refill : General Appearance: WD/WN, no apparent distress HEENT: PERRL/EOMI, normal ENT inspection Neck: non-tender, full range of motion, supple, normal inspection Cardiovascular: regular rate, rhythm, systolic murmur (04/03) Respiratory: chest non-tender, normal breath sounds, no respiratory distress, no accessory muscle use Gastrointestinal: normal bowel sounds, non tender, soft Back: normal inspection, no CVA tenderness, no vertebral tenderness Extremities: no pedal edema, no calf tenderness, normal capillary refill, other (TENDERNESS, SWELLING, AND BRUISING TO LEFT WRIST WITH VERY LIMITED ROM DUE TO PAIN. DISTAL MOTOR/SENSORY/VASCULAR INTACT. ALSO HAS TENDERNESS TO LEFT HIP, BUT NO SHORTENING OR ROTATION, HAS LEFT LEG FLEXED AT KNEE AND HIP. DISTAL MOTOR/SENSORY/VASCULAR INTACT. 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 as tested, no motor/sensory deficits, alert, normal mood/affect, oriented x 3 Skin: normal color, warm/dry [place] Coma Score Best Eye Response: (4) Open Spontaneously Best Verbal Response: (5) Oriented Best Motor Response: (6) Obeys Commands [place] Total: 15 Splinting and Joint Reduction : Pre-Proc Neuro Vasc Exam: normal Post-Proc Neuro Vasc Exam: normal Arm Sling: [place] Hand-Made Type: orthoglass Splint Application: Short Arm Progress/Results/Core Measures Results/Orders My Orders Orders - ESTRELLA ZAYASA K DO Forearm, Left, 2 Views (12/05/16 12:00) Wrist, Left, 3 Views Or More (12/05/16 12:00) Pelvis With Left Hip 2-3 Views (12/05/16 12:00) Vital Signs/I&O Vital Sign - Last 12Hours 12/05/16 12/05/16 11:56 12:20 Temp 98.1 98.1 Pulse 72 72 Resp 16 16 B/P (MAP) 106/46 106/46 (66) Pulse Ox 98 98 O2 Delivery Room Air Progress Note : Progress Note PT UNABLE TO CARE FOR HERSELF AT HOME, SHE WILL NOT BE ABLE TO USE A WALKER AT THIS TIME DUE TO LEFT WRIST/FOREARM FRACTURE Diagnostic Imaging Comments XRAYS LEFT WRIST AND FOREARM--FRACTURE DISTAL RADIUS XRAYS PELVIS AND LEFT HIP--FX LEFT INFERIOR AND SUPERIOR PUBIC RAMI PER RADIOLOGIST REPORTS AT 1259 Reviewed: Reviewed by Me Departure Communication (Admissions) Progress Notes 1247----SPOKE WITH DR. LIND, ACCEPTS PT FOR ADMIT 1252--SPOKE WITH DR. JOHNSON, FOR ORTHOPEDIC CONSULT. Impression Impression: Primary Impression: Status post fall Additional Impressions: Closed fracture of left distal radius Closed fracture of left pelvis ESRD on dialysis Disposition: ADMITTED INPATIENT Condition: Stable Admissions Decision to Admit Reason: Admit from ER (Trauma) Decision to Admit/Date: Dec 05, 2016 Time/Decision to Admit Time: 12:50 Departure-Patient Inst. Referrals: NALLELY SOLIMAN MD (PCP/Family) Primary Care Physician NAFISA ZAYAS DO Dec 05, 2016 12:09
--- NOTE | 2016-12-05 12:55 | Diagnostic Imaging Report ---
INDICATION: Wrist pain after fall. COMPARISON: None available. TECHNIQUE: 3 views of the left wrist. FINDINGS: Diffuse osteoporosis. There is an acute, mildly impacted distal radial metaphyseal fracture. There is likely intra-articular extension into the radiocarpal joint. No fracture line extending into the distal radial ulnar joint. No articular surface depression at the radiocarpal joint. No ulnar styloid fracture. Chondrocalcinosis of the TFC. IMPRESSION: 1. Acute and mildly impacted distal radial fracture with probable intra-articular extension into the radiocarpal joint. No articular surface step-off. Dictated by: Dictated on workstation # [id number]
--- NOTE | 2016-12-05 12:56 | Diagnostic Imaging Report ---
INDICATION: Wrist pain after fall. COMPARISON: Left wrist radiographs performed concurrently. TECHNIQUE: AP and lateral views of the left forearm. FINDINGS: Please see wrist radiograph report for details of distal radial fracture. There is no proximal radial fracture. No ulnar fracture is seen. Elbow appears grossly normal in alignment. IMPRESSION: 1. No fracture or malalignment of the proximal radius and ulna. 2. Please see wrist radiograph report for details of distal radial fracture. Dictated by: Dictated on workstation # [id number]
--- NOTE | 2016-12-05 12:56 | Diagnostic Imaging Report ---
EXAM: PELVIS WITH LEFT HIP 2-3 VIEWS INDICATION: Fall. Left hip pain. COMPARISON: None. FINDINGS: Cortical irregularities along the medial left inferior pubic ramus and superior left pubic symphysis. No evidence of acute fracture in the left hip. Vascular calcifications. Partially visualized intramedullary sumeet in the left femur. Large amount of stool throughout the colon and rectum. This obscures the sacrum. IMPRESSION: Fractures of the left inferior and pubic ramus and pubic symphysis. The left hip appears intact. Dictated by: Dictated on workstation # [id number]
[2016-12-05] MEDS ORDERED: fentaNYL INJECTION 100 MCG/2 ML AMP IVP STA (12:59)
--- OUTSIDE RECORDS SUMMARY | 2016-12-05 14:00 | XMS REPORT | Clinical Summary ---
Author Author [facility] Organization [facility] Address Unknown Phone Unavailable Care Team Providers Care Pharmacologist Name Role Phone PCP Unavailable Source Comments Some departments are not documenting in the electronic medical record. If you do not see the information that you expected, contact Release of Information in the Health Information Management department at [phone] for further assistance in locating additional records.[facility] Allergies Active Allergy Reactions Severity Noted Date [...]
[2016-12-05 14:23] LABS: BASOPHILS % (AUTO) 0 % (0-10); EOSINOPHILS # (AUTO) 0.3 10^3/uL (0.0-0.3); EOSINOPHILS % (AUTO) 3 % (0-10); LYMPHOCYTES # (AUTO) 0.7 X 10^3 (1.0-4.0); LYMPHOCYTES % (AUTO) 7 % (12-44); MEAN CORPUSCULAR HEMOGLOBIN 32 PG (25-34); MEAN CORPUSCULAR HGB CONC 33 G/DL (32-36); MEAN CORPUSCULAR VOLUME 97 FL (80-99); MEAN PLATELET VOLUME 10.3 FL (7.4-10.4); MONOCYTES # (AUTO) 0.5 X 10^3 (0.0-1.0); MONOCYTES % (AUTO) 5 % (0-12); NEUTROPHILS # (AUTO) 8.8 X 10^3 (1.8-7.8); NEUTROPHILS % (AUTO) 85 % (42-75); PLATELET COUNT 211 10^3/uL (130-400); RED BLOOD COUNT 3.92 10^6/uL (4.35-5.85); RED CELL DISTRIBUTION WIDTH 16.3 % (10.0-14.5); WHITE BLOOD COUNT 10.3 10^3/uL (4.3-11.0)
[2016-12-05 14:32] LABS: INR 1.2 (0.8-1.4); PROTHROMBIN TIME PATIENT 15.7 SEC (12.2-14.7)
[2016-12-05 14:39] LABS: ALBUMIN 4.1 GM/DL (3.2-4.5); BILIRUBIN,TOTAL 0.5 MG/DL (0.1-1.0); CALCIUM 8.5 MG/DL (8.5-10.1); CREATININE SERUM 2.85 MG/DL (0.60-1.30); TOTAL PROTEIN 7.1 GM/DL (6.4-8.2)
[2016-12-05 14:56] LABS: EOSINOPHILS % (MANUAL) 3 %; LYMPHOCYTES % (MANUAL) 4 %; NEUTROPHILS % (MANUAL) 90 %
--- NOTE | 2016-12-05 15:10 | Consultation ---
History of Present Illness History of Present Illness Patient Consulted On(nato/time) 12/05/16 14:48 Date Seen by Provider: Dec 05, 2016 Time Seen by Provider: 14:48 Reason for Visit: ED/INPT consult for left distal radius and left superior inferior rami History of Present Illness patient was admitted through the emergency room today with the diagnosis of left distal radius fracture and left pelvic fracture involving the superior and inferior ramus She is on outpatient dialysis and completed her dialysis this morning. Subsequent to this she was at home and had a fall from standing without apparent cause She denies chest pain shortness of breath, dyspnea lightheadedness.she does sometimes get lightheaded or fatigued after dialysis. No numbness or tingling in the left upper or lower extremity. Denies current pain. She had fentanyl IV in the emergency department. She's had a prior left distal radius fracture treated without surgery "about 20 years ago" history of Giant Cell Tumor s/p, she thinks, "DFR" she has IM device to level of lesser trochanter but no radiographs of the knee Allergies and Home Medications Allergies Coded Allergies: povidone-iodine (Verified Allergy, Mild, 12/01/16) ranitidine (Verified Allergy, Mild, 12/01/16) soap (Verified Allergy, Mild, 12/01/16) tetracycline (Verified Allergy, Mild, 12/01/16) Penicillins (Verified Allergy, Unknown, 02/03/16) Sulfa (Sulfonamide Antibiotics) (Verified Allergy, Unknown, 02/03/16) Uncoded Allergies: NARCOTIC (Allergy, Mild, 12/01/16) Home Medications Amiodarone HCl 200 Mg Tablet, 200 MG PO BID, (Reported) Atorvastatin Calcium 40 Mg Tablet, 40 MG PO DAILY, (Reported) Cinacalcet HCl 60 Mg Tablet, 60 MG PO BID, (Reported) Clomipramine HCl 50 Mg Capsule, 50 MG PO BID, (Reported) Metoprolol Tartrate 25 Mg Tablet, 25 MG PO BID, (Reported) HAS NOT BEEN TAKING PRESCRIBED RECENTLY BECAUSE OF LOW BLOOD PRESSURE LAST FILLED #180 08-19-15 Sevelamer Carbonate 800 Mg Tablet, 1,600 MG PO TIDWM, (Reported) TAKES 2 (800MG) TABLETS Warfarin Sodium 3 Mg Tablet, 6 MG PO DAILY, (Reported) Past Wfuxmbj-Ecyivh-Ygadpl Hx Patient Social History Alcohol Use: Denies Use Recreational Drug Use: No Smoking Status: Never a Smoker Recent Foreign Travel: No Contact w/Someone Who Travel: No Recent Infectious Disease Expo: No Recent Hopitalizations: No Immunizations Up To Date Date of Pneumonia Vaccine: Jan 04, 2012 Date of Influenza Vaccine: Jan 31, 2016 Seasonal Allergies Seasonal Allergies: No Surgeries History of Surgeries: Yes (DIALYSIS GRAFT/SHUNT RIGHT UPPER ARM; RIGHT KNEE TUMOR REMOVAL ) Surgeries: Dialysis, Orthopedic ( Distal Femur Giant Cell Tumor), Vascular Surgery Respiratory History of Respiratory Disorde: No Currently Using CPAP: No Currently Using BIPAP: No Cardiovascular History of Cardiac Disorders: Yes Cardiac Disorders: Heart Murmur Neurological History of Neurological Disord: No Reproductive System Hx Reproductive Disorders: No Genitourinary History of Genitourinary Disor: Yes Genitourinary Disorders: Renal Failure, Dialysis Gastrointestinal History of Gastrointestinal Di: No Musculoskeletal History of Musculoskeletal Dis: Yes (LEFT WRIST FRACTURE) Endocrine History of Endocrine Disorders: No HEENT History of HEENT Disorders: No Cancer History of Cancer: No Psychosocial History of Psychiatric Problem: No Integumentary History of Skin or Integumenta: No Blood Transfusions History of Blood Disorders: No Adverse Reaction to a Blood Tr: No Family Medical History Significant Family History: No Pertinent Family Hx Review of Systems-General Constitutional: No no symptoms reported, No see HPI, No chills, No diaphoresis , No dizziness, No fever, No malaise, No weakness Respiratory: no symptoms reported Cardiovascular: no symptoms reported Physical Exam-General Problems Physical Exam Vital Signs Vital Sign - Last 12Hours 12/05/16 12/05/16 11:56 12:20 Temp 98.1 Pulse 72 Resp 16 B/P (MAP) 106/46 Pulse Ox 98 O2 Delivery Room Air Capillary Refill : Less Than 3 Seconds General Appearance: WD/WN, no apparent distress, cachetic, thin HEENT: normal ENT inspection Neck: full range of motion, supple Respiratory: no respiratory distress, no accessory muscle use, other (no audible wheeze) Cardiovascular: normal peripheral pulses, regular rate, rhythm Peripheral Pulses: 2+ Left Dors-Pedis (L), 2+ Radial Pulses (L) Extremities: no pedal edema, no calf tenderness, normal capillary refill, pelvis stable (mild tenderness with AP/Lat compression), calf tenderness Neurologic/Psychiatric: alert, normal mood/affect, oriented x 3 Assessment/Plan Assessment/Plan Admission Diagnosis/Plan 76-year-old female with a fall from standing sustaining a minimally displaced intra-articular left distal radius fracture and nondisplaced left superior inferior ramus fractures. She is on dialysis She takes warfarin for history of A. fib within the last year. Utility of warfarin and risk-benefit ratio may be decreased with history of several falls. She will need physical therapy with a left forearm platform walker. Gait and mobility training for transfers weightbearing to tolerance through the elbow on the left and nonweightbearing in the wrist and hand on the left. Touchdown weightbearing left lower extremity and progress according to symptoms. Anticipate 4-6 weeks for healing. Follow-up in the orthopedic office ([facility]) in 1 week for repeat x- rays and cast application. you are welcome to call me on my cell phone if there are any questions for the weekend ([phone]) Clinical Quality Measures DVT/VTE Risk/Contraindication: VTE Present on Admission: Yes (on warfarin ) RICHIE JOHNSON MD Dec 05, 2016 15:10
[2016-12-05] MEDS: fentaNYL INJECTION 100 MCG/2 ML AMP IV PRN ×3 (15:54→21:41)
[2016-12-05 16:53] VITALS: BP 132/53
[2016-12-05] MEDS ORDERED: PATIENT MAY USE OWN MEDS, ALL MC SCH (17:15)
[2016-12-05 19:23] VITALS: BP 125/56
[2016-12-06] VITALS: BP 135/60
[2016-12-06] MEDS: fentaNYL INJECTION 100 MCG/2 ML AMP IV PRN ×5 (01:31→14:15)
[2016-12-06 04:00] VITALS: BP 140/61
[2016-12-06 08:16] VITALS: BP 192/73
--- NOTE | 2016-12-06 09:52 | Progress Note-Standard ---
Standard Progress Note Progress Notes/Assess & Plan Date Seen by Provider: Dec 06, 2016 Time Seen by Provider: 09:50 Progress/Assessment & Plan 76-year-old female patient on dialysis with a fall from standing yesterday Complains of increased swelling and left wrist pain today in her sugar tong splint Denies numbness or tingling. Minimal complaints regarding pelvis. I removed the 2 overlying Matthieu bandages of the sugar tong fiberglass splint. Light touch sensation remains intact to both actively and I'm able to passively flex and extend all the fingers and thumb without any aggravation of the pain Rewrapped lightly with a single Matthieu bandage and encouraged her to elevate and adjusted and obtained pelvis for her to elevate her limb. PEER,RICHIE Chew MD Dec 06, 2016 09:52
[2016-12-06 12:00] VITALS: BP 193/77
[2016-12-06] MEDS ORDERED: WARF1TAB6 PO ×2 (14:25)
[2016-12-06] MEDS ORDERED: CINA90TA PO (14:25)
--- NOTE | 2016-12-06 15:43 | History & Physicial ([facility]) ---
HPI History of Present Illness: 76 yo female admitted from ER with wrist and pelvic fractures. She has ESRD on dialysis and after dialysis on Wednesday, when she was going home, she was in the elevator and felt weak and then fell. She denies recent falls otherwise, but her caregivers state she does fall relatively frequently or at least near falls. This morning she denies concerns except for a lot of pain in her wrist still. Source: patient Date seen by provider: Dec 06, 2016 Time Seen by Provider: 10:00 Attending Physician Martha Barkley MD PCP Nallely Rivero MD Consult Date of Admission Dec 05, 2016 at 13:00 Home Medications Home Medications Reviewed patient Home Medication Reconciliation Form Allergies Coded Allergies: povidone-iodine (Verified Allergy, Mild, 12/05/16) ranitidine (Verified Allergy, Mild, 12/05/16) soap (Verified Allergy, Mild, 12/05/16) tetracycline (Verified Allergy, Mild, 12/05/16) Penicillins (Verified Allergy, Unknown, 12/05/16) Sulfa (Sulfonamide Antibiotics) (Verified Allergy, Unknown, 12/05/16) Uncoded Allergies: NARCOTIC (Allergy, Mild, 12/01/16) KOA-Orztnl-Pjdzes Hx Patient Social History Alcohol Use: Denies Use Recreational Drug Use: No Smoking Status: Never a Smoker Recent Foreign Travel: No Contact w/other who traveled: No Recent Hopitalizations: No Recent Infectious Disease Expo: No Physical Abuse Screen: No Sexual Abuse: No Immunizations Up To Date Date of Pneumonia Vaccine: Jan 04, 2012 Date of Influenza Vaccine: Jan 31, 2016 Past Medical History PMHx: Atrial fibrillation Mitral valve regurgitation and stenosis Aortic valve regurgitation and stenosis Tricuspid valve regurgitation Depression ESRD on dialysis PSurgHx: Left knee replacement for Giant Cell Tumor Tonsillectomy/adenoidectomy Appendectomy Hysterectomy Family Medical History Significant Family History: No Pertinent Family Hx Family History: Patient reports no known family medical history. Review of Systems ([facility]) Constitutional: No fever EENTM: no symptoms reported Respiratory: no symptoms reported Cardiovascular: no symptoms reported Gastrointestinal: No constipation Genitourinary: no symptoms reported Musculoskeletal: see HPI Skin: no symptoms reported Psychiatric/Neurological: No Symptoms Reported Reviewed Test Results Reviewed Test Results Lab Laboratory Tests Test 12/05/16 14:00 12/05/16 14:51 Range/Units White Blood Count 10.3 4.3-11.0 10^3/uL Red Blood Count 3.92 L 4.35-5.85 10^6/uL Hemoglobin 12.4 11.5-16.0 G/DL Hematocrit 38 35-52 % Mean Corpuscular Volume 97 80-99 FL Mean Corpuscular Hemoglobin 32 25-34 PG Mean Corpuscular Hemoglobin Concent 33 32-36 G/DL Red Cell Distribution Width 16.3 H 10.0-14.5 % Platelet Count 211 130-400 10^3/uL Mean Platelet Volume 10.3 7.4-10.4 FL Neutrophils (%) (Auto) 85 H 42-75 % Lymphocytes (%) (Auto) 7 L 12-44 % Monocytes (%) (Auto) 5 0-12 % Eosinophils (%) (Auto) 3 0-10 % Basophils (%) (Auto) 0 0-10 % Neutrophils # (Auto) 8.8 H 1.8-7.8 X 10^3 Lymphocytes # (Auto) 0.7 L 1.0-4.0 X 10^3 Monocytes # (Auto) 0.5 0.0-1.0 X 10^3 Eosinophils # (Auto) 0.3 0.0-0.3 10^3/uL Basophils # (Auto) 0.0 0.0-0.1 10^3/uL Neutrophils % (Manual) 90 % Lymphocytes % (Manual) 4 % Monocytes % (Manual) 3 % Eosinophils % (Manual) 3 % Blood Morphology Comment NORMAL Prothrombin Time 15.7 H 12.2-14.7 SEC INR Comment 1.2 0.8-1.4 Activated Partial Thromboplast Time 28 24-35 SEC Sodium Level 136 135-145 MMOL/L Potassium Level 5.0 3.6-5.0 MMOL/L Chloride Level 94 L 98-107 MMOL/L Carbon Dioxide Level 30 21-32 MMOL/L Anion Gap 12 5-14 MMOL/L Blood Urea Nitrogen 18 7-18 MG/DL Creatinine 2.85 H 0.60-1.30 MG/DL Estimat Glomerular Filtration Rate 16 BUN/Creatinine Ratio 6 Glucose Level 100 70-105 MG/DL Calcium Level 8.5 8.5-10.1 MG/DL Total Bilirubin 0.5 0.1-1.0 MG/DL Aspartate Amino Transf (AST/SGOT) 23 5-34 U/L Alanine Aminotransferase (ALT/SGPT) 26 0-55 U/L Alkaline Phosphatase 95 40-136 U/L Total Protein 7.1 6.4-8.2 GM/DL Albumin 4.1 3.2-4.5 GM/DL Glucometer 120 H 70-110 MG/DL Radiology Left wrist x-ray 12/05: IMPRESSION: 1. Acute and mildly impacted distal radial fracture with probable intra- articular extension into the radiocarpal joint. No articular surface step-off. Hip/pelvis x-ray 12/05: IMPRESSION: Fractures of the left inferior and pubic ramus and pubic symphysis. The left hip appears intact. Physical Exam-([facility]) Physical Exam Vital Signs VS - Last 72 Hours, by Label 12/05/16 12/05/16 12/05/16 12/05/16 11:56 12:20 14:08 14:25 Temp 98.1 98.1 98.1 Pulse 72 72 72 Resp 16 16 16 B/P (MAP) 106/46 106/46 (66) Pulse Ox 98 98 98 O2 Delivery Room Air Room Air 12/05/16 12/05/16 12/05/16 12/06/16 16:53 19:23 21:00 00:00 Temp 98.3 98.9 97.1 Pulse 68 74 82 Resp 20 20 18 B/P (MAP) 132/53 125/56 135/60 Pulse Ox 96 94 96 O2 Delivery Room Air Room Air Room Air Room Air 12/06/16 12/06/16 12/06/16 04:00 08:16 12:00 Temp 96.0 96.2 96.0 Pulse 79 87 84 Resp 18 20 20 B/P (MAP) 140/61 192/73 193/77 Pulse Ox 95 95 98 O2 Delivery Room Air Room Air Room Air Capillary Refill : Less Than 3 SecondsLess Than 3 Seconds General Appearance: WD/WN, no apparent distress Respiratory: lungs clear, normal breath sounds Cardiovascular: regular rate, rhythm, systolic murmur Gastrointestinal: normal bowel sounds, non tender, soft Extremities: no pedal edema, other (left forearm in sugar tong splint) Neurologic/Psychiatric: alert, normal mood/affect Skin: normal color, warm/dry Assessment/Plan Assessment/Plan Admission Dx Left distal radial fracture Left pubic symphysis and pubic rami fracture ESRD on dialysis Atrial fibrillation with severe valvular disease on coumadin Plan Left distal radial fracture/Left superior and inferior pubic rami fracture- management per Orthopedics, appreciate recommendations, weight bearing as tolerated lower extremities, splint to left forearm and needs elbow platform walker; non-weight bearing wrist and hand -PT/OT -Social service consult for SNF placement -Fentanyl not helping with pain, will try morphine ESRD on dialysis- due for dialysis on Wednesday Atrial fibrillation with severe valvular disease on coumadin- patient reported Dr. Fortune had stopped coumadin, but family reports she is still taking and that she is supposed to be still taking -INR on admit 1.2, resume home coumadin and check with Dr. Fortune's office tomorrow for clarification and further discussion given her fall risk DVT ppx- on coumadin Diagnosis/Problems: Clinical Quality Measures DVT/VTE Risk/Contraindication: VTE Present on Admission: Yes (on warfarin ) Risk Factor Score Per Nursin RFS Level Per Nursing on Admit: 4+=Very High Copy Copies To 1: NALLELY RIVERO MD, BETHANY N MD Dec 06, 2016 15:43
[2016-12-06] MEDS: SEVELAMER CARBONATE PO SCH (16:20)
[2016-12-06] MEDS: morphine INJ 10 MG/ML 1ML (SYR OR VIAL) IVP PRN ×2 (16:21→20:23)
[2016-12-06 16:33] VITALS: BP 149/63
[2016-12-06] MEDS ORDERED: warFARin 1 MG (COUMADIN) TAB PO SCH (17:00)
[2016-12-06] MEDS ORDERED: warFARin 3 MG (COUMADIN) TAB PO SCH (17:00)
[2016-12-06 19:37] VITALS: BP 162/68
[2016-12-06] MEDS: CINACALCET HCL PO SCH (20:24)
[2016-12-07] VITALS: BP 183/79
[2016-12-07 04:00] VITALS: BP 148/94
[2016-12-07] MEDS: ONDANSETRON 4 MG/2 ML (SDV) Z0FRAN IVP PRN ×2 (04:34→08:55)
[2016-12-07 06:05] LABS: MEAN PLATELET VOLUME 10.7 FL (7.4-10.4); RED BLOOD COUNT 3.88 10^6/uL (4.35-5.85); RED CELL DISTRIBUTION WIDTH 16.2 % (10.0-14.5); WHITE BLOOD COUNT 9.5 10^3/uL (4.3-11.0)
[2016-12-07 06:15] LABS: INR 1.1 (0.8-1.4); PROTHROMBIN TIME PATIENT 14.5 SEC (12.2-14.7)
[2016-12-07 06:21] LABS: CALCIUM 9.6 MG/DL (8.5-10.1); CREATININE SERUM 5.95 MG/DL (0.60-1.30); POTASSIUM 5.6 MMOL/L (3.6-5.0)
[2016-12-07] MEDS: CLOMIPRAMINE PO SCH ×2 (08:50→20:54)
[2016-12-07] MEDS: CINACALCET HCL PO SCH ×2 (08:50→20:53)
[2016-12-07] MEDS: meTOprolol TARTRATE 25 MG (LOPRESSOR) TABLET PO SCH (08:51)
[2016-12-07] MEDS: SEVELAMER CARBONATE PO SCH ×4 (08:52→20:54)
[2016-12-07] MEDS: morphine INJ 10 MG/ML 1ML (SYR OR VIAL) IVP PRN (08:55)
--- NOTE | 2016-12-07 10:06 | Physical Therapy Evaluation ---
PT Evaluation-General Medical Diagnosis Admission Date Dec 05, 2016 at 13:00 Medical Diagnosis: left distal radius fracture/left pelvic fracture Onset Date: Dec 05, 2016 Therapy Diagnosis Therapy Diagnosis: generalized weakness/debility Height/Weight Height (Feet): 5 Height (Inches): 5.00 Weight (Pounds): 112 Weight (Ounces): 8.0 Precautions Precautions/Isolations: Fall Prevention, Standard Precautions Weight Bear Status Weight Bearing Restriction: Touch Toe Bearing Location Restriction: L LE (TTWB) Referral Physician: J Luis Reason for Referral: Evaluation/Treatment Medical History Pertinent Medical History: Atrial Fib, HTN, Renal Insufficiency Additional Medical History renal failure requiring dialysis Current History returned from dialysis and fell landing on left side Reviewed History: Yes Social History Home: Apartment Current Living Status: Alone Entry Into Home: Level Entry daughter and son-in-law are DPOA and caregivers Prior/Core FIM Prior Level of Function Functional [place] Measure 0=Not Assessed/NA 4=Minimal Assistance 1=Total Assistance 5=Supervision or Setup 2=Maximal Assistance 6=Modified [place] 3=Moderate Assistance 7=Complete [place] Bed Mobility: 6 Transfers (B,C,W/C) (FIM): 6 Gait: 6 PT Evaluation-Current Subjective Patient c/o 8/10 left pelvic pain. RN is aware and will issue pain medication. Pain Numeric Pain Scale: 8 Location: Left Location Body Site: Pelvic Pain Description: Acute, Sharp Objective Patient Orientation: Person, Time, Situation Problem Solving: Fair ROM/Strength ROM Lower Extremities left LE NT due to pain right LE WNL Strenght Lower Extremities left LE NT due to pain right knee flexion/extension 4/5; hip flexion NT due to pelvic fracture; ankle dorsi/plantarflexion 4/5 Integumentary/Posture Integumentary refer to nursing notes Bowel Incontinence: No Bladder Incontinence: No Posture WFL Neuromuscular (Tone, Coordination, Reflexes) grossly intact with coordination/sensation Sensory Vision: Functional Hearing: Functional Sensation Right Lower Extremit: Intact Sensation Left Lower Extremity: Intact Transfers Functional [place] Measure 0=Not Assessed/NA 4=Minimal Assistance 1=Total Assistance 5=Supervision or Setup 2=Maximal Assistance 6=Modified [place] 3=Moderate Assistance 7=Complete [place] Transfers (B, C, W/C) (FIM): 4 Scootin Rollin Supine to/from Sit: 4 Sit to/from Stand: 4 bed t/f WC(FIM only if WC use): 4 minimal assist with sit to stand from bed with transfer to commode with use of left platform FWW (3'); then transfer to recliner (3') Gait Mode of Locomotion: Both Anticipated Mode of Locomotion: Both Gait (FIM): 1 Distance (FIM): 1=up to 49 ft Distance: 3' x 2 Gait Level of Assist: 4 Gait Assistive Device: Walker Platform Comments/Gait Description patient prefers to place left foot on right foot when attempting to ambulate/ transfer due to gravitational pressure of left pelvic region Balance Sitting Static: Normal Sitting Dynamic: Normal Standing Static: Fair Standing Dynamic: Fair Assessment/Needs 76 y.o. female, will benefit from skilled PT to address functional strength and mobility to improve current LOF. Patient will require extended care due to weight bearing status and dialysis needs. Rehab Potential: Fair PT Senior Care Goals Senior Care Goals PT Collision Estimator Goals Time Frame: Dec 11, 2016 Transfers (B,C,W/C) (FIM): 5 Gait (FIM): 1 Gait distance (FIM): 1=up to 49 ft Gait Level of Assist: 4 Gait Assistive Device: Walker Platform PT Plan Problem List Problem List: Activity Tolerance, Functional Strength, Balance, Gait, Transfer , Bed Mobility Treatment/Plan Treatment Plan: Continue Plan of Care Treatment Plan: Bed Mobility, Education, Functional Activity Pricila, Functional Strength, Gait, Safety, Therapeutic Exercise, Transfers Treatment Duration: Dec 11, 2016 Frequency: 11 times per week Estimated Hrs Per Day: .25 hour per day Patient and/or Family Agrees t: Yes Safety Risks/Education Patient Education: Transfer Techniques, Safety Issues Teaching Recipient: Patient Teaching Methods: Demonstration, Discussion Response to Teaching: Verbalize Understanding, Return Demonstration Discharge Recommendations Therapy D/C Recommendations: Senior Living Placement, [facility] (TCU/NH) Time/GCodes Time In: 830 Time Out: 855 Total Billed Treatment Time: 25 Total Billed Treatment 1 visit EVModC 25 min G Codes Necessary: CRISTHIAN Multani PT Dec 07, 2016 10:06
[2016-12-07 12:00] VITALS: BP 142/73
--- NOTE | 2016-12-07 12:33 | Progress Note (SOAP) ---
Subjective Subjective/Events-last exam States that she is doing ok today. Pain is well controlled. She was able to sit in recliner for 2 hrs this AM. No BM since yesterday. Tolerating PO diet Review of Systems Date Seen by Provider: Dec 07, 2016 Time Seen by Provider: 12:05 Pulmonary: No Dyspnea, No Cough Cardiovascular: No: Chest Pain, Palpitations Gastrointestinal: No: Nausea, Vomiting, Abdominal Pain Musculoskeletal: arm pain Neurological: Weakness, No: Confusion Objective Exam Last Set of Vital Signs Vital Signs Date Time Temp Pulse Resp B/P (MAP) Pulse Ox O2 Delivery O2 Flow Rate FiO2 12/07/16 08:42 96.9 97 20 90 Room Air Capillary Refill : Less Than 3 SecondsLess Than 3 Seconds I&O Intake and Output 12/08/16 00:00 Intake Total 250 ml Output Total 0 ml Balance 250 ml Intake Oral 250 ml Output Urine Total 0 ml General: Alert, Oriented X3, Cooperative Lungs: Clear to Auscultation, Normal Air Movement Heart: Regular Rate, Other (Loud Holosystolic murmur) Abdomen: Normal Bowel Sounds, Soft, No Tenderness, No Hepatosplenomegaly Extremities: No Edema, No Tenderness/Swelling, Other (RUE fistula, LUE with splint) Neuro: Sensation Intact, Other (LUE neurovascularly intact) Results/Procedures Lab Laboratory Tests 12/07/16 05:45: White Blood Count 9.5, Red Blood Count 3.88L, Hemoglobin 12.3, Hematocrit 37, Mean Corpuscular Volume 96, Mean Corpuscular Hemoglobin 32, Mean Corpuscular Hemoglobin Concent 33, Red Cell Distribution Width 16.2H, Platelet Count 145, Mean Platelet Volume 10.7H, Prothrombin Time 14.5, INR Comment 1.1, Sodium Level 133L, Potassium Level 5.6H, Chloride Level 89L, Carbon Dioxide Level 29, Anion Gap 15H, Blood Urea Nitrogen 44H, Creatinine 5.95#H, Estimat Glomerular Filtration Rate 7, BUN/Creatinine Ratio 7, Glucose Level 97, Calcium Level 9.6 Radiology Left wrist x-ray 12/05: IMPRESSION: 1. Acute and mildly impacted distal radial fracture with probable intra- articular extension into the radiocarpal joint. No articular surface step-off. Hip/pelvis x-ray 12/05: IMPRESSION: Fractures of the left inferior and pubic ramus and pubic symphysis. The left hip appears intact. Assessment/Plan Assessment/Plan Admission Dx Left distal radial fracture Left pubic symphysis and pubic rami fracture ESRD on dialysis Atrial fibrillation with severe valvular disease on coumadin Plan Left distal radial fracture/Left superior and inferior pubic rami fracture- management per Orthopedics, appreciate recommendations, weight bearing as tolerated lower extremities, splint to left forearm and needs elbow platform walker; non-weight bearing wrist and hand -PT/OT; IRF evaluation pending -Social service consult for SNF placement - Transition to PO pain medications, IV for breakthrough ESRD on dialysis- due for dialysis on Wednesday Atrial fibrillation with severe valvular disease on coumadin- patient reported Dr. Fortune had stopped coumadin, but family reports she is still taking - Discussed the risks and benefits of coumadin with patient, given recent fistula bleed and falls - Will stop coumadin at this time DVT ppx- Lovenox FEN: Reg diet Dispo: Will likely need SNF placement Diagnosis/Problems: Clinical Quality Measures DVT/VTE Risk/Contraindication: VTE Present on Admission: Yes (on warfarin ) Risk Factor Score Per Nursin RFS Level Per Nursing on Admit: 4+=Very High NALLELY SOLIMAN MD Dec 07, 2016 12:33
--- NOTE | 2016-12-07 12:55 | Occupational Therapy Eval ---
OT Evaluation-General/PLF Medical Diagnosis Admission Date Dec 05, 2016 at 13:00 Medical Diagnosis: left distal radius fracture/left pelvic fracture Onset Date: Dec 05, 2016 Therapy Diagnosis Therapy Diagnosis: decr self care, decr funct mobiility, decr activ robert, weakness Height/Weight Height (Feet): 5 Height (Inches): 5.00 Weight (Pounds): 112 Weight (Ounces): 8.0 Precautions Precautions/Isolations: Fall Prevention, Standard Precautions Safety Interventions: None Weight Bear Status Weight Bearing Restriction: Touch Toe Bearing Location Restriction: L LE (TTWB) WBS (Ord/Comment): WBAT through L shoulder and elbow, NWB wrist or hand Platform walker Referral Physician: Peer Referral Reason: Evaluation/Treatment Medical History Pertinent Medical History: Atrial Fib, HTN, Renal Insufficiency Additional Medical History Dialysis with shunt R UE, R knee tumor removed, L femur sumeet. Heart murmur, irreg heartbeat. Depression. L knee replacement Current History Pt fell outside elevator in [facility]. Social History Home: Apartment ([facility]) Current Living Status: Alone Entry Into Home: Level Entry Sister and [id number] check on her ADL-Prior Level of Function ADL PLOF Comments Pt reported that she was able to manage her basic self care needs prior to her fall. 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 Her sister and [id number] are her caregivers DME/Equipment: Bath Chair, Grab Bars, Shower Hose Child Care Worker OT Current Status Subjective Pt seen inroom, up in bed, agreeable to OT. Pain reported 5/10 in L wrist (not described). Appearance Alert, oriented, cooperative Mental Status/Objective Attachments: IV Current Glasses/Contacts: No Hearing Aids: No Dentures/Partials: Yes Hand Dominance: Right Upper Extremity ROM R UE grossly WFL. L UE WFL at shoulder (rest not tested) Upper Extremity Strength R UE grossly 4/5 throughout. Edema: Very little edema L UE but arm up on pillows ADL-Treatment ADL-Current Pt was able to get a drink herself but reported she was just not hungry. She was excited that she got up to the BS with PT this morning. Functional [place] Measure 0=Not Assessed/NA 4=Minimal Assistance 1=Total Assistance 5=Supervision or Setup 2=Maximal Assistance 6=Modified [place] 3=Moderate Assistance 7=Complete IndependenceIRFPAI Quality Coding Scale 6 Independent with activity with or without an assistive device 5 Patient requires set up or clean up by helper. Patient completes activity by themselves 4 Supervision or touching assist (CGA). [place] provide cues , steadying assist 3 The helper provides less than half the effort to complete the activity 2 The helper provides more than half the effort to complete the activity 1 Dependent. The helper does all the effort to complete an activity 7 Patient refused to complete or attempt activity 9 The patient did not perform the activity before the current illness or injury 88 Not attempted due to Medical conditions or safety concerns Education OT Patient Education: Purpose of tx/functional activities, Rehab process Teaching Recipient: Patient Teaching Methods: Discussion Response to Teaching: Verbalize Understanding OT Nursing Home Goals Nursing Home Goals Time Frame: Dec 14, 2016 Eating (FIM): 5 Grooming(FIM): 5 Upper Body Dressing(FIM): 4 Lower Body Dressing(FIM): 4 Toileting(FIM): 4 Toilet/Commode Transfer(FIM): 4 Additional Goals: 2-Verbalize Understanding, 3-ImproveStrength/Pricila 1=Demonstrate adherence to instructed precautions during ADL tasks. 2=Patient will verbalize/demonstrate understanding of assistive devices/ modifications for ADL. 3=Patient will improve strength/tolerance for activity to enable patient to perform ADL's. OT Education/Plan Problem List/Assessment Assessment: Decreased Activ Tolerance, Decreased UE Strength, Dependent Transfers, Impaired Self-Care Skills, Restricted Funct UE ROM Pt would benefit from skilled OT to increase her independence in basic self care to allow her to safely return to her home and to decrease caregiver burden Discharge Recommendations Plan/Recommendations: Continue POC Therapy D/C Recommendations: Assisted (TCU/NH) (due to long period of decr WBS) Barriers to Progress long time with limited weight bearing limitations Treatment Plan/Plan of Care Treatment,Training & Education: Yes Patient would benefit from OT for education, treatment and training to promote independence in ADL's, mobility, safety and/or upper extremity function for ADL' s. Plan of Care: ADL Retraining, Functional Mobility, UE Funct Exercise/Act, UE Neuromus Re-Ed/Coord Treatment Duration: Dec 14, 2016 Frequency: 5 times per week Estimated Hrs Per Day: .5 hour per day Agreement: Yes Rehab Potential: Fair Time/GCodes Start Time: 11:45 Stop Time: 12:00 Total Time Billed (hr/min): 15 Billed Treatment Time visit, 15 minutes evaluation moderate intensity EMILIA MOORE OT Dec 07, 2016 12:55
[2016-12-07] MEDS: oxyCODONE/APAP 5/325MG (PERCOCET 5) TABLET PO PRN ×2 (13:41→18:09)
--- NOTE | 2016-12-07 14:02 | Physical Therapy Daily Note ---
PT Daily Note-Current Subjective Patient is in bed and family is present. Agrees to PT. Pain Numeric Pain Scale: 8 Location: Left Location Body Site: Pelvic Pain Description: Acute, Sharp Mental Status Patient Orientation: Confused Transfers Functional [place] Measure 0=Not Assessed/NA 4=Minimal Assistance 1=Total Assistance 5=Supervision or Setup 2=Maximal Assistance 6=Modified [place] 3=Moderate Assistance 7=Complete IndependenceIRFPAI Quality Coding Scale 6 Independent with activity with or without an assistive device 5 Patient requires set up or clean up by helper. Patient completes activity by themselves 4 Supervision or touching assist (CGA). [place] provide cues , steadying assist 3 The helper provides less than half the effort to complete the activity 2 The helper provides more than half the effort to complete the activity 1 Dependent. The helper does all the effort to complete an activity 7 Patient refused to complete or attempt activity 9 The patient did not perform the activity before the current illness or injury 88 Not attempted due to Medical conditions or safety concerns Transfers (B, C, W/C) (FIM): 3 Scootin Rollin Supine to/from Sit: 3 Sit to/from Stand: 4 Bed to/from Chair: 4 Weight Bearing Weight Bearing Restriction: Touch Toe Bearing (can progress as tolerated per report) Location Restriction: L LE Gait Training Gait (FIM): 1 Distance (FIM): 1=up to 49 ft Distance: 25' x 2 Gait Level of Assist: 4 Gait Persons Needed: 1 Gait Assistive Device: Walker Platform TTWB with step to gait sequence Exercises Supine Ex: Ankle pumps, Quad Set Supine Reps: 15 Seated Therapy Exercises: Ankle pumps, Long arc quads Seated Reps: 15 Assessment Current Status: Good Progress Patient is progressing with treatment plan. Patient tolerates minimal activity due to pain and fatigue. PT Mcc Goals Mcc Goals PT Mcc Goals Time Frame: Dec 11, 2016 Transfers (B,C,W/C) (FIM): 5 Gait (FIM): 1 Gait distance (FIM): 1=up to 49 ft Gait Level of Assist: 4 Gait Assistive Device: Walker Platform PT Plan Treatment/Plan Treatment Plan: Continue Plan of Care Treatment Plan: Bed Mobility, Education, Functional Activity Pricila, Functional Strength, Gait, Safety, Therapeutic Exercise, Transfers Treatment Duration: Dec 18, 2016 Frequency: 11 times per week Estimated Hrs Per Day: .5 hour per day Patient and/or Family Agrees t: Yes Time/GCodes Time In: 1325 Time Out: 1348 Total Billed Treatment Time: 23 Total Billed Treatment 1 visit EX 10 min Gt 13 min CRISTHIAN COLE PT Dec 07, 2016 14:02
[2016-12-07 16:50] VITALS: BP 153/84
[2016-12-07] MEDS ORDERED: warFARin 1 MG (COUMADIN) TAB PO SCH (17:00)
[2016-12-07 20:25] VITALS: BP 167/67
[2016-12-08 00:23] VITALS: BP 157/75
[2016-12-08 06:10] LABS: BASOPHILS % (AUTO) 0 % (0-10); EOSINOPHILS # (AUTO) 0.7 10^3/uL (0.0-0.3); EOSINOPHILS % (AUTO) 8 % (0-10); LYMPHOCYTES # (AUTO) 0.9 X 10^3 (1.0-4.0); LYMPHOCYTES % (AUTO) 9 % (12-44); MEAN CORPUSCULAR HEMOGLOBIN 32 PG (25-34); MEAN CORPUSCULAR HGB CONC 33 G/DL (32-36); MEAN CORPUSCULAR VOLUME 95 FL (80-99); MEAN PLATELET VOLUME 10.6 FL (7.4-10.4); MONOCYTES # (AUTO) 0.7 X 10^3 (0.0-1.0); MONOCYTES % (AUTO) 8 % (0-12); NEUTROPHILS # (AUTO) 6.9 X 10^3 (1.8-7.8); NEUTROPHILS % (AUTO) 75 % (42-75); PLATELET COUNT 140 10^3/uL (130-400); RED CELL DISTRIBUTION WIDTH 16.1 % (10.0-14.5); WHITE BLOOD COUNT 9.2 10^3/uL (4.3-11.0)
[2016-12-08] MEDS: SEVELAMER CARBONATE PO SCH ×3 (06:11→18:01)
[2016-12-08 06:38] LABS: ALBUMIN 3.7 GM/DL (3.2-4.5); BILIRUBIN,TOTAL 0.4 MG/DL (0.1-1.0); CALCIUM 9.2 MG/DL (8.5-10.1); CREATININE SERUM 7.12 MG/DL (0.60-1.30); TOTAL PROTEIN 7.1 GM/DL (6.4-8.2)
[2016-12-08 06:41] LABS: POTASSIUM 6.6 MMOL/L (3.6-5.0)
[2016-12-08] MEDS: oxyCODONE/APAP 5/325MG (PERCOCET 5) TABLET PO PRN ×3 (07:28→22:21)
[2016-12-08] MEDS: meTOprolol TARTRATE 25 MG (LOPRESSOR) TABLET PO SCH (08:24)
[2016-12-08] MEDS: CINACALCET HCL PO SCH ×2 (08:24→20:42)
[2016-12-08 08:31] VITALS: BP 177/74
[2016-12-08] MEDS ORDERED: OXYC-471 PO (10:13)
--- NOTE | 2016-12-08 11:25 | Physical Therapy Progress Note ---
Therapy Progress Note Pt attempted to see pt at 1120 and was notified by Aide that pt had gone to Dialysis and would not return until approx. 1330. PT will try again later. EBONIE CRESPO PLANTING MATERIAL UNLOADER Dec 08, 2016 11:25
--- NOTE | 2016-12-08 15:16 | Occupational Ther Daily Note ---
OT Current Status-Daily Note Subjective Pt in bed, states she is tired, but agrees to treatment. Pt reports 6/10 pain in left UE/LE. Mental Status/Objective Functional [place] Measure 0=Not Assessed/NA 4=Minimal Assistance 1=Total Assistance 5=Supervision or Setup 2=Maximal Assistance 6=Modified [place] 3=Moderate Assistance 7=Complete [place] Other Treatment Pt states she was recently up to restroom with assist from nursing. Pt states she is having some difficulty going from supine <-> sit. Education provided regarding technique. Pt then performed supine <-> sit x3 trials with minimal assistance. Pt requires assist for left LE. Pt performed sit to stand with minimal assistance. Uses platform FWW to take sidesteps to HOB with TTWB left LE. Pt resting in bed with needs met, family and social services analyst present after session. OT Short Term Goals Short Term Goals 1=Demonstrate adherence to instructed precautions during ADL tasks. 2=Patient will verbalize/demonstrate understanding of assistive devices/ modifications for ADL. 3=Patient will improve strength/tolerance for activity to enable patient to perform ADL's. OT Chcf Goals Parking Line Painter Goals Time Frame: Dec 14, 2016 Eating (FIM): 5 Grooming(FIM): 5 Upper Body Dressing(FIM): 4 Lower Body Dressing(FIM): 4 Toileting(FIM): 4 Toilet/Commode Transfer(FIM): 4 Additional Goals: 2-Verbalize Understanding, 3-ImproveStrength/Pricila 1=Demonstrate adherence to instructed precautions during ADL tasks. 2=Patient will verbalize/demonstrate understanding of assistive devices/ modifications for ADL. 3=Patient will improve strength/tolerance for activity to enable patient to perform ADL's. OT Education/Plan Problem List/Assessment Pt would benefit from skilled OT to increase her independence in basic self care to allow her to safely return to her home and to decrease caregiver burden Discharge Recommendations Plan/Recommendations: Continue POC Treatment Plan/Plan of Care Patient would benefit from OT for education, treatment and training to promote independence in ADL's, mobility, safety and/or upper extremity function for ADL' s. Plan of Care: ADL Retraining, Functional Mobility, UE Funct Exercise/Act, UE Neuromus Re-Ed/Coord Treatment Duration: Dec 14, 2016 Frequency: 5 times per week Estimated Hrs Per Day: .5 hour per day Agreement: Yes Rehab Potential: Fair Time/GCodes Start Time: 14:50 Stop Time: 15:03 Total Time Billed (hr/min): 13 Billed Treatment Time 1 visit, FA(13minutes) DANIEL JOSHI OT Dec 08, 2016 15:16
--- NOTE | 2016-12-08 15:53 | Physical Therapy Progress Note ---
Therapy Progress Note Attempted pt again in afternoon (1545), pt declined PT tx due to fatigue from dialysis, short tx w/OT then New Car Salesperson visited. Pt reported suppose to discharge to [facility] tomorrow. PT will check on pt tomorrow. EBONIE CRESPO DIRECTOR OF REHABILITATIVE SERVICES Dec 08, 2016 15:53
[2016-12-08 16:45] VITALS: BP 170/64
[2016-12-09 00:24] VITALS: BP 149/59
[2016-12-09] MEDS ORDERED: ONDANSETRON 4 MG (ZOFRAN) ORAL DISSOLVE TAB PO PRN (03:00)
[2016-12-09] MEDS: SEVELAMER CARBONATE PO SCH ×2 (06:18→08:30)
[2016-12-09 07:21] VITALS: BP 161/62
[2016-12-09] MEDS: meTOprolol TARTRATE 25 MG (LOPRESSOR) TABLET PO SCH (08:28)
[2016-12-09] MEDS: CLOMIPRAMINE PO SCH (08:29)
[2016-12-09] MEDS: CINACALCET HCL PO SCH (08:30)
[2016-12-09] MEDS: oxyCODONE/APAP 5/325MG (PERCOCET 5) TABLET PO PRN (08:32)
[2016-12-09] MEDS ORDERED: SENN-1 PO (10:30)
--- NOTE | 2016-12-09 10:33 | Discharge Inst-Skilled Nursing ---
Discharge Inst-Skilled NF Patient Instructions Patient Problems: Left Distal Radius Fracture Left Superior inferior Ramus Fracture Paroxysmal Atrial Fibrillation Severe Valvular disease End Stage Kidney Failure on HD Goal: PT/OT to gain back independence from fractures Daily Bowel movements due to pain medication Consult/Follow Up/Orders Follow up appt.: Ortho 4 States next week for splinting on Left wrist Alena Duarte will see you in the NH next week Skilled NF Admit to: [facility] Certifications SNF I certify that SNF services are required to be given on an inpatient basis because of the above named patient's need for care home care on a continuing basis for the conditions(s) for which he/she was receiving inpatient hospital services prior to his/her transfer to the SNF. Halfway Facility Order: Nursing Services, Ranch Supervisor-Evaluate & Treat, Physical Therapy-Evaluate & Treat, Wound Care-Eval/Treat Discharge Diet: Eat Small Frequent Meals Daily Activity as Tolerated: Yes New & Resume Previous Orders New & Resume Previous Orders - Patient will need PT and OT therapy from fractures, She is to be non weight bearing on Left wrist and weight bearing as tolerated on lower extremities - Hemodialysis transportation 3 times per week - Patient will need help toileting and bathing since recent injury Discharge Medications New, Converted or Re-Newed RX: RX on Chart New Medications: Sennosides/Docusate Sodium (Senna S Tablet) 1 Each Tablet 1 EACH PO BID for 30 Days, TAB Oxycodone HCl/Acetaminophen (Oxycodone-Acetaminophen 5-325) 1 Each Tablet 1 TAB PO Q6H PRN for PAIN-MODERATE for 28 Days, #112 TAB Continued Medications: Cinacalcet HCl (Sensipar) 90 Mg Tablet 90 MG PO BID Clomipramine HCl (Clomipramine HCl) 50 Mg Capsule 50 MG PO DAILY, CAP Metoprolol Tartrate (Metoprolol Tartrate) 25 Mg Tablet 25 MG PO DAILY, TAB Sevelamer Carbonate (Renvela) 800 Mg Tablet 1600 MG PO TIDWM, TAB TAKES 2 (800 MG) TABLETS Discontinued Medications: Warfarin Sodium (Warfarin Sodium) 3 Mg Tablet 6 MG PO DAILY, TAB TAKES 2 (3 MG) TABLETS Warfarin Sodium (Warfarin Sodium) 1 Mg Tablet 2 MG PO MoWeFr@1700 TAKES 2 (1 MG) TABLETS Warfarin Sodium (Warfarin Sodium) 1 Mg Tablet 1 MG PO SuTuThSa@1700, TAB Nallely R Gault Dec 08, 2016 11:08 NALLELY SOLIMAN MD Dec 08, 2016 11:15
--- NOTE | 2016-12-09 10:45 | Discharge Summary ---
Diagnosis/Chief Complaint Date of Admission Dec 05, 2016 at 13:00 Date of Discharge 12/09/16 Admission Diagnosis Admission Diagnosis Left distal radial fracture Left pubic symphysis and pubic rami fracture ESRD on dialysis Atrial fibrillation with severe valvular disease on coumadin Discharge Diagnosis Left distal radial fracture Left pubic symphysis and pubic rami fracture ESRD on dialysis Atrial fibrillation with severe valvular disease on coumadin Opoid induced constipation Chief Complaint/HPI Chief Complaint/HPI 76 yo female admitted from ER with wrist and pelvic fractures. She has ESRD on dialysis and after dialysis on Wednesday, when she was going home, she was in the elevator and felt weak and then fell. She denies recent falls otherwise, but her caregivers state she does fall relatively frequently or at least near falls. This morning she denies concerns except for a lot of pain in her wrist still. Discharge Summary-Simple/Stand Consultations Ortho 4 States Discharge Physical Examination Allergies: Coded Allergies: povidone-iodine (Verified Allergy, Mild, 12/05/16) ranitidine (Verified Allergy, Mild, 12/05/16) soap (Verified Allergy, Mild, 12/05/16) tetracycline (Verified Allergy, Mild, 12/05/16) Penicillins (Verified Allergy, Unknown, 12/05/16) Sulfa (Sulfonamide Antibiotics) (Verified Allergy, Unknown, 12/05/16) Uncoded Allergies: NARCOTIC (Allergy, Mild, 12/01/16) Vitals & I&Os Vital Sign - Last 12Hours Date Time Temp Pulse Resp B/P (MAP) Pulse Ox O2 Delivery O2 Flow Rate FiO2 12/09/16 07:21 96.2 92 20 161/62 94 Room Air General Appearance: Alert, Oriented X3, Cooperative, No Acute Distress HEENT: Atraumatic, PERRLA Respiratory: Clear to Auscultation Cardiovascular: Regular Rate, No Murmurs Abdominal: Normal Bowel Sounds, Soft, No Tenderness Extremities: Other (Mild Left UE swelling, RUE fistula with palpable thrill) Skin: No Rashes Neuro: Normal Gait, Normal Speech, Strength at 5/5 X4 Ext, Cranial Nerves 3-12 NL Psych/Mental Status: Mental Status NL, Mood NL Hospital Course See final discharge diagnosis. Radiology Reviewed Left wrist x-ray 12/05: IMPRESSION: 1. Acute and mildly impacted distal radial fracture with probable intra- articular extension into the radiocarpal joint. No articular surface step-off. Hip/pelvis x-ray 12/05: IMPRESSION: Fractures of the left inferior and pubic ramus and pubic symphysis. The left hip appears intact. Discussion & Recommendations 76 yo F on HD for ESRD admitted after fall resulting in LUE radial fracture and pubic rami fractures. She was seen and evaluated by Ortho and has an outpatient followup for splinting next week after swelling improves. Patient was previously living at home with the help of her sister and brother in law but needs full care at this time. She was evaluated by Rehab and found to be a better candidate for SNF. She will need HD 3 times per week. Will have close followup at [facility] Discharge Condition at discharge Stable Instructions to patient/family Please see electronic discharge instructions given to patient. Discharge Medications Reviewed and agree with Discharge Medication list on patient's Discharge Instruction sheet Clinical Quality Measures DVT/VTE Risk/Contraindication: VTE Present on Admission: Yes (on warfarin ) Risk Factor Score Per Nursin RFS Level Per Nursing on Admit: 4+=Very High Copy Copies To 1: NALLELY SOLIMAN MD, HOLLY R MD Dec 09, 2016 10:45
[2016-12-09 13:00] VITALS: BP 161/62
== END 2016-12-09 13:05 | DRG 562 ==
LOC: EDUNIT# 11:56 → ER 11:57 → 4TH 13:00
PROVIDERS: ADMIT Family Medicine; ATTEND Family Medicine
DX: S52.572A Other intraarticular fracture of lower end of left radius, initial encounter for closed fracture (principal); S32.592A Other specified fracture of left pubis, initial encounter for closed fracture; I12.0 Hypertensive chronic kidney disease with stage 5 chronic kidney disease or end stage renal disease; N18.6 End stage renal disease; R64 Cachexia; I48.91 Unspecified atrial fibrillation; I08.3 Combined rheumatic disorders of mitral, aortic and tricuspid valves; F32.9 Major depressive disorder, single episode, unspecified; R01.1 Cardiac murmur, unspecified; E78.00 Pure hypercholesterolemia, unspecified; K59.03 Drug induced constipation; T40.2X5A Adverse effect of other opioids, initial encounter; Z99.2 Dependence on renal dialysis; Z79.01 Long term (current) 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s; Z96.652 Presence of left artificial knee joint; W19.XXXA Unspecified fall, initial encounter; Y92.538 Other ambulatory health services establishments as the place of occurrence of the external cause
CPT/HCPCS: 29125; 36415; 73090; 73110; 80048; 80053; 82962; 85007; 85025; 85027; 85610; 85730; 93041; 96374

== ENCOUNTER 2017-03-07 20:01 | Emergency (ER) | payer MEDICARE, MEDICAID ==
[~2017-03-07] VITALS: Ht 165.1 cm; Wt 54.4 kg
[~2017-03-07 20:01] MED LIST changes: +CINA90TA PO; +OXYC-471 PO; +SENN-1 PO; +WARF1TAB6 PO
--- OUTSIDE RECORDS SUMMARY | 2017-03-07 20:07 | XMS REPORT | Continuity of Care Document ---
Author Author [employer] Organization [facility] Address Unknown Phone Unavailable Care Team Providers Care Blending Tank Helper Name Role Phone [employer] Unavailable Unavailable Problems Medications Allergies, Adverse Reactions, Alerts Immunizations Results Vital Signs Encounters Procedures Plan of Care Social History Assessment and Plan Family History Value Date Source Advance Directives Order Name Results Value Date Source
--- OUTSIDE RECORDS SUMMARY | 2017-03-07 20:08 | XMS REPORT ---
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 Active 229350 Problem Insomnia, unspecified type G47.00 Active 811105374 Problem Kidney failure N19 Active 32175725 Problem Recurrent major depressive disorder, in full remission F33.42 Active 461560045 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 Z79.01 Active 271037986 Problem 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 530765936 Problem End stage renal disease N18.6 Active 27227966 Problem Chronic fatigue R53.82 Active 88131460 Problem 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 648130875 ALLERGIES No Information SOCIAL HISTORY Never Assessed PLAN OF CARE VITAL SIGNS MEDICATIONS Unknown Medications RESULTS No Results PROCEDURES No Known procedures IMMUNIZATIONS No Known Immunizations MEDICAL (GENERAL) HISTORY Type Description Date Medical History Decreased Kidney Function Medical History Hypertension Medical History Hyperlipidemia 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
--- OUTSIDE RECORDS SUMMARY | 2017-03-07 20:08 | XMS REPORT ---
Author Author NALLELY SOLIMAN Organization 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 Active 600966 Problem Insomnia, unspecified type G47.00 Active 695589964 Problem Kidney failure N19 Active 15173957 Problem Recurrent major depressive disorder, in full remission F33.42 Active 965946069 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.01 Active 752208201 Problem 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 509788508 Problem End stage renal disease N18.6 Active 04861627 Problem Chronic fatigue R53.82 Active 67335934 Problem 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 198589183 ALLERGIES Unknown Allergies SOCIAL HISTORY No smoking Hx information available PLAN OF CARE VITAL SIGNS MEDICATIONS Unknown Medications RESULTS Name Result Date Reference Range INR (IN HOUSE) 2016-04-23 INR 1.9 1.10 - 3.30 PREVIOUS INR 2.2 CURRENT COUMADIN DOSE see internal notes NEW COUMADIN DOSE Lot # [id number] Exp date 01/2017 PROCEDURES Procedure Date Ordered Related Diagnosis Body Site PROTHROMBIN TIME Apr 23, 2016 IMMUNIZATIONS No Known Immunizations
--- OUTSIDE RECORDS SUMMARY | 2017-03-07 20:08 | XMS REPORT ---
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 Active 283394 Problem Insomnia, unspecified type G47.00 Active 038145251 Problem Kidney failure N19 Active 12994240 Problem Recurrent major depressive disorder, in full remission F33.42 Active 129539658 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 Z79.01 Active 450472075 Problem 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 390608589 Problem End stage renal disease N18.6 Active 35837249 Problem Chronic fatigue R53.82 Active 65245338 Problem 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 452270712 ALLERGIES No Information SOCIAL HISTORY Never Assessed PLAN OF CARE VITAL SIGNS MEDICATIONS Medication Instructions Dosage Frequency Start Date End Date Duration Status Coumadin 1 MG Orally on T and TH along with a 5mg tablet to equal 6mg's on TH 1 tablet Active Coumadin 5 mg Orally on Shin 1 tablet Apr, Active RESULTS No Results PROCEDURES No Known procedures IMMUNIZATIONS No Known Immunizations MEDICAL (GENERAL) HISTORY Type Description Date Medical History Decreased Kidney Function Medical History Hypertension Medical History Hyperlipidemia Medical History retirement use of coumadin Medical History Dialysis Surgical History tonsillectomy and adenoidectomy Surgical History appendectomy Surgical History Partial Hysterectomy Surgical History left knee replacement Hospitalization History [facility]/2015 Hospitalization History [facility] on lungs-[facility] Hospitalization History ER -shunt malfunction 10/2016 Hospitalization History ER 12/01/2016
--- OUTSIDE RECORDS SUMMARY | 2017-03-07 20:08 | XMS REPORT ---
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 Active 914445 Problem Insomnia, unspecified type G47.00 Active 802610380 Problem Kidney failure N19 Active 70810965 Problem Recurrent major depressive disorder, in full remission F33.42 Active 770193246 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.01 Active 872901187 Problem 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 944813678 Problem End stage renal disease N18.6 Active 13244010 Problem Chronic fatigue R53.82 Active 78834940 Problem 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 213972045 ALLERGIES No Information SOCIAL HISTORY Never Assessed PLAN OF CARE VITAL SIGNS MEDICATIONS Medication Instructions Dosage Frequency Start Date End Date Duration Status Coumadin 5 mg Orally Once a day everyday 1 tablet Apr, Active RESULTS No Results PROCEDURES No Known procedures IMMUNIZATIONS No Known Immunizations MEDICAL (GENERAL) HISTORY Type Description Date Medical History Decreased Kidney Function Medical History Hypertension Medical History Hyperlipidemia Medical History residential use of coumadin Medical History Dialysis Surgical History tonsillectomy and adenoidectomy Surgical History appendectomy Surgical History Partial Hysterectomy Surgical History left knee replacement Hospitalization History [facility] 03/2015 Hospitalization History Fl[facility] on lungs-[facility] Hospitalization History ER -shunt malfunction 10/2016 Hospitalization History ER 12/01/2016
--- OUTSIDE RECORDS SUMMARY | 2017-03-07 20:08 | XMS REPORT ---
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 Active 861839 Problem Insomnia, unspecified type G47.00 Active 227243585 Problem Kidney failure N19 Active 47371833 Problem Recurrent major depressive disorder, in full remission F33.42 Active 222188407 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.01 Active 842395480 Problem 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 397820321 Problem End stage renal disease N18.6 Active 45111601 Problem Chronic fatigue R53.82 Active 35025539 Problem 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 921219083 ALLERGIES No Information SOCIAL HISTORY Never Assessed PLAN OF CARE VITAL SIGNS MEDICATIONS Unknown Medications RESULTS Name Result Date Reference Range INR (IN HOUSE) 2016-05-19 INR 1.8 1.10 - 3.30 PREVIOUS INR 1.6 CURRENT COUMADIN DOSE 5 mg M-F/4 mg Sat & Sun NEW COUMADIN DOSE Lot # [id number] Exp date 03/2017 PROCEDURES Procedure Date Ordered Result Body Site PROTHROMBIN TIME May 19, 2016 IMMUNIZATIONS No Known Immunizations MEDICAL (GENERAL) HISTORY Type Description Date Medical History Decreased Kidney Function Medical History Hypertension Medical History Hyperlipidemia Medical History [facility] use of coumadin Medical History Dialysis Surgical History tonsillectomy and adenoidectomy Surgical History appendectomy Surgical History Partial Hysterectomy Surgical History left knee replacement Hospitalization History [facility]/2015 Hospitalization History Fl[facility] Hospitalization History ER -shunt malfunction 10/2016 Hospitalization History ER 12/01/2016
--- OUTSIDE RECORDS SUMMARY | 2017-03-07 20:08 | XMS REPORT ---
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 Active 714420 Problem Insomnia, unspecified type G47.00 Active 236370401 Problem Kidney failure N19 Active 07537540 Problem Recurrent major depressive disorder, in full remission F33.42 Active 348322490 Problem long term care social worker 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 Z79.01 Active 415970776 Problem 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 789487762 Problem End stage renal disease N18.6 Active 20832995 Problem Chronic fatigue R53.82 Active 48841013 Problem 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 798039209 ALLERGIES No Information SOCIAL HISTORY Never Assessed PLAN OF CARE VITAL SIGNS MEDICATIONS Medication Instructions Dosage Frequency Start Date End Date Duration Status Coumadin 5 mg Orally 1 tablet along with two 1mg tablets to equal 7mg on SAT/ then 6mg total on remaining days .... 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
--- OUTSIDE RECORDS SUMMARY | 2017-03-07 20:08 | XMS REPORT | Clinical Summary ---
Author Author [facility] Organization [facility] Address Unknown Phone Unavailable Care Team Providers Care Community Service Specialist Name Role Phone PCP Unavailable Source Comments Some departments are not documenting in the electronic medical record. If you do not see the information that you expected, contact Release of Information in the Health Information Management department at [phone] for further assistance in locating additional records.[facility] Allergies Active Allergy Reactions Severity Noted [...] SCREENING 2005 PREVNAR/PNEUMOVAX (#1) 2005 INFLUENZA VACCINE 10/27/2016 Results Not on filefrom Last 3 Months
--- OUTSIDE RECORDS SUMMARY | 2017-03-07 20:08 | XMS REPORT ---
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 Active 262683 Problem Insomnia, unspecified type G47.00 Active 196994178 Problem Kidney failure N19 Active 48721440 Problem Recurrent major depressive disorder, in full remission F33.42 Active 687519928 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 Z79.01 Active 278306973 Problem 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 103345284 Problem End stage renal disease N18.6 Active 15723510 Problem Chronic fatigue R53.82 Active 08630452 Problem 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 194092534 ALLERGIES No Information SOCIAL HISTORY Never Assessed PLAN OF CARE VITAL SIGNS MEDICATIONS Unknown Medications RESULTS Name Result Date Reference Range INR (IN HOUSE) 2016-06-18 INR 1.2 1.10 - 3.30 PREVIOUS INR 1.4 CURRENT COUMADIN DOSE 5 mg daily NEW COUMADIN DOSE Lot # [id number] Exp date 03/2017 PROCEDURES Procedure Date Ordered Result Body Site PROTHROMBIN TIME June 18, 2016 IMMUNIZATIONS No Known Immunizations MEDICAL (GENERAL) HISTORY Type Description Date Medical History Decreased Kidney Function Medical History Hypertension Medical History Hyperlipidemia 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
--- OUTSIDE RECORDS SUMMARY | 2017-03-07 20:08 | XMS REPORT ---
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 Active 507784 Problem Insomnia, unspecified type G47.00 Active 582320888 Problem Kidney failure N19 Active 00616191 Problem Recurrent major depressive disorder, in full remission F33.42 Active 006415888 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 Active 242194091 Problem 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 320891296 Problem End stage renal disease N18.6 Active 75569354 Problem Chronic fatigue R53.82 Active 88626063 Problem 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 428670478 ALLERGIES No Information SOCIAL HISTORY Never Assessed PLAN OF CARE VITAL SIGNS MEDICATIONS Unknown Medications RESULTS No Results PROCEDURES No Known procedures IMMUNIZATIONS No Known Immunizations MEDICAL (GENERAL) HISTORY Type Description Date Medical History Decreased Kidney Function Medical History Hypertension Medical History Hyperlipidemia 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
--- OUTSIDE RECORDS SUMMARY | 2017-03-07 20:09 | XMS REPORT ---
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 Active 155660 Problem Insomnia, unspecified type G47.00 Active 311638609 Problem Kidney failure N19 Active 72526111 Problem Recurrent major depressive disorder, in full remission F33.42 Active 332914878 Problem long term care social worker 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 Z79.01 Active 830324575 Problem 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 324928445 Problem End stage renal disease N18.6 Active 66126305 Problem Chronic fatigue R53.82 Active 45309642 Problem 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 506466260 ALLERGIES No Information SOCIAL HISTORY Never Assessed [...] [facility] Hospitalization History [facility] Hospitalization History ER -shunt malfunction 10/2016 Hospitalization History ER 12/01/2016
--- OUTSIDE RECORDS SUMMARY | 2017-03-07 20:09 | XMS REPORT ---
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 Active 589971 Problem Insomnia, unspecified type G47.00 Active 988426237 Problem Kidney failure N19 Active 21958142 Problem Recurrent major depressive disorder, in full remission F33.42 Active 871083214 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 Z79.01 Active 420453473 Problem 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 925605649 Problem End stage renal disease N18.6 Active 28185613 Problem Chronic fatigue R53.82 Active 67110099 Problem 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 [id number] ALLERGIES No Information SOCIAL HISTORY Never Assessed PLAN OF CARE VITAL SIGNS MEDICATIONS Unknown Medications RESULTS Name Result Date Reference Range INR (IN HOUSE) 2016-06-11 INR 1.4 1.10 - 3.30 PREVIOUS INR 1.7 CURRENT COUMADIN DOSE 5 mg daily NEW COUMADIN DOSE Lot # [id number] Exp date 03/2017 PROCEDURES Procedure Date Ordered Result Body Site PROTHROMBIN TIME June 11, 2016 IMMUNIZATIONS No Known Immunizations MEDICAL (GENERAL) HISTORY Type Description Date Medical History Decreased Kidney Function Medical History Hypertension Medical History Hyperlipidemia 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
--- OUTSIDE RECORDS SUMMARY | 2017-03-07 20:09 | XMS REPORT ---
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 Active 157216 Problem Insomnia, unspecified type G47.00 Active 337023374 Problem Kidney failure N19 Active 34006677 Problem Recurrent major depressive disorder, in full remission F33.42 Active 164613107 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 Active 570249716 Problem 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 846641280 Problem End stage renal disease N18.6 Active 73286509 Problem Chronic fatigue R53.82 Active 59529025 Problem 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 [id number] ALLERGIES No Information SOCIAL HISTORY Never Assessed PLAN OF CARE VITAL SIGNS MEDICATIONS Unknown Medications RESULTS Name Result Date Reference Range INR (IN HOUSE) 2016-06-02 INR 1.7 1.10 - 3.30 PREVIOUS INR 1.8 CURRENT COUMADIN DOSE 5 mg daily NEW COUMADIN DOSE Lot # [id number] Exp date 03/2017 PROCEDURES Procedure Date Ordered Result Body Site PROTHROMBIN TIME June 02, 2016 IMMUNIZATIONS No Known Immunizations MEDICAL (GENERAL) HISTORY Type Description Date Medical History Decreased Kidney Function Medical History Hypertension Medical History Hyperlipidemia 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
--- OUTSIDE RECORDS SUMMARY | 2017-03-07 20:09 | XMS REPORT ---
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 Active 116368 Problem Insomnia, unspecified type G47.00 Active 586678312 Problem Kidney failure N19 Active 02668336 Problem Recurrent major depressive disorder, in full remission F33.42 Active 571333536 Problem assisted 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 Z79.01 Active 887068674 Problem 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 955979607 Problem End stage renal disease N18.6 Active 65171038 Problem Chronic fatigue R53.82 Active 55905568 Problem 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 265489119 ALLERGIES Substance Reaction Event Type Date Status Zantac Unknown Drug Allergy Apr, Active Tetracycline HCl Unknown Drug Allergy Apr, Active Sulfamethoxazole-Trimethoprim Unknown Drug Allergy Apr, Active Penicillin V Potassium Unknown Drug Allergy Apr, Active Betadine Unknown Drug Allergy Apr, Active narcotics avoid them Non Drug Allergy Apr, Active SOCIAL HISTORY Never Assessed PLAN OF CARE Activity Details Follow Up 2 Months with Josefa Reason: VITAL SIGNS Height 67 in 2016-05-05 Weight 110.7 lbs 2016-05-05 Temperature 99.0 degrees Fahrenheit 2016-05-05 Heart Rate 64 bpm 2016-05-05 Respiratory Rate 18 2016-05-05 BMI 17.34 kg/m2 2016-05-05 Blood pressure systolic 101 mmHg 2016-05-05 Blood pressure diastolic 62 mmHg 2016-05-05 MEDICATIONS Medication Instructions Dosage Frequency Start Date End Date Duration Status Amiodarone HCl 200 TAKE 1 TABLET BY MOUTH TWICE DAILY 30 Active ClomiPRAMINE HCl 50 mg Orally Once a day 2 capsules 24h 30 Active Sensipar 60 mg Orally Once a day 2 tablets 24h Active Coumadin 3 MG Orally daily on along with two 1mg tablets to equal 5mg then on remaining days take along with one 1mg tablet to equal 4 1 tablet Active Amiodarone HCl 200 mg Orally twice a day 1 tablet 12h Active Metoprolol Tartrate 25 MG Orally Twice a day 1 tablet with food 12h Active Renvela 800 MG Orally Three times a day 2 tablets 8h 20 Active Coumadin 1 MG Orally On Wednesday and Wednesday along with the 3mg tablet to equal 4 mg and on other days take 5mg total 1 tablet Active RESULTS Name Result Date Reference Range INR (IN HOUSE) 2016-05-05 INR 1.6 1.10 - 3.30 PREVIOUS INR 1.9 CURRENT COUMADIN DOSE NEW COUMADIN DOSE Lot # [id number] Exp date 01/2017 PROCEDURES Procedure Date Ordered Result Body Site PROTHROMBIN TIME May 05, 2016 [facility] VISIT ESTABLISHED PATIENT May 05, 2016 IMMUNIZATIONS No Known Immunizations MEDICAL (GENERAL) HISTORY Type Description Date Medical History Decreased Kidney Function Medical History Hypertension Medical History Hyperlipidemia Medical History assisted use of coumadin Medical History Dialysis Surgical History tonsillectomy and adenoidectomy Surgical History appendectomy Surgical History Partial Hysterectomy Surgical History left knee replacement Hospitalization History [facility]/2015 Hospitalization History Fluid on lungs-[facility] Hospitalization History ER -shunt malfunction 10/2016 Hospitalization History ER 12/01/2016
--- OUTSIDE RECORDS SUMMARY | 2017-03-07 20:09 | XMS REPORT ---
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 Active 329602 Problem Insomnia, unspecified type G47.00 Active 660927966 Problem Kidney failure N19 Active 73934293 Problem Recurrent major depressive disorder, in full remission F33.42 Active 492254744 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 Active 306050730 Problem 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 023800217 Problem End stage renal disease N18.6 Active 31789561 Problem Chronic fatigue R53.82 Active 89793044 Problem 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 559978677 ALLERGIES No Information SOCIAL HISTORY Never Assessed [...] History Hypertension Medical History Hyperlipidemia 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
--- OUTSIDE RECORDS SUMMARY | 2017-03-07 20:10 | XMS REPORT ---
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 Active 738094 Problem Insomnia, unspecified type G47.00 Active 187865080 Problem Kidney failure N19 Active 15535218 Problem Recurrent major depressive disorder, in full remission F33.42 Active 881745663 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 Active 124206938 Problem 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 778698450 Problem End stage renal disease N18.6 Active 14127313 Problem Chronic fatigue R53.82 Active 81947629 Problem 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 553542613 ALLERGIES Unknown Allergies SOCIAL HISTORY No smoking Hx information available PLAN OF CARE VITAL SIGNS MEDICATIONS Medication Instructions Dosage Frequency Start Date End Date Duration Status Coumadin 3 MG Orally daily on MWF along with two 1mg tablets to equal 5mg then on remaining days take along with one 1mg tablet to equal 4 1 tablet Active RESULTS No Results PROCEDURES No Known procedures IMMUNIZATIONS No Known Immunizations
--- OUTSIDE RECORDS SUMMARY | 2017-03-07 20:10 | XMS REPORT ---
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 Active 921126 Problem Insomnia, unspecified type G47.00 Active 133720673 Problem Kidney failure N19 Active 03102442 Problem Recurrent major depressive disorder, in full remission F33.42 Active 633142691 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.01 Active 664305813 Problem 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 590681488 Problem End stage renal disease N18.6 Active 25956538 Problem Chronic fatigue R53.82 Active 52521274 Problem 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 842590035 ALLERGIES No Information SOCIAL HISTORY Never Assessed PLAN OF CARE VITAL SIGNS MEDICATIONS Unknown Medications RESULTS No Results PROCEDURES No Known procedures IMMUNIZATIONS No Known Immunizations MEDICAL (GENERAL) HISTORY Type Description Date Medical History Decreased Kidney Function Medical History Hypertension Medical History Hyperlipidemia 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
--- OUTSIDE RECORDS SUMMARY | 2017-03-07 20:10 | XMS REPORT ---
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 Active 520644 Problem Insomnia, unspecified type G47.00 Active 297732946 Problem Kidney failure N19 Active 75037435 Problem Recurrent major depressive disorder, in full remission F33.42 Active 684090994 Problem custodial 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 Z79.01 Active 952641456 Problem 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 870978756 Problem End stage renal disease N18.6 Active 73654676 Problem Chronic fatigue R53.82 Active 81898902 Problem 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 095500817 ALLERGIES Substance Reaction Event Type Date Status Zantac Unknown Drug Allergy May, Active Tetracycline HCl Unknown Drug Allergy May, Active Sulfamethoxazole-Trimethoprim Unknown Drug Allergy May, Active Penicillin V Potassium Unknown Drug Allergy May, Active Betadine Unknown Drug Allergy May, Active narcotics avoid them Non Drug Allergy May, Active SOCIAL HISTORY Never Assessed PLAN OF CARE Activity Details Follow Up 2 Weeks with Josefa Reason: VITAL SIGNS Height 67 in 2016-06-11 Weight 116.6 lbs 2016-06-11 Temperature 98.2 degrees Fahrenheit 2016-06-11 Heart Rate 60 bpm 2016-06-11 Respiratory Rate 16 2016-06-11 BMI 18.26 kg/m2 2016-06-11 Blood pressure systolic 123 mmHg 2016-06-11 Blood pressure diastolic 59 mmHg 2016-06-11 MEDICATIONS Medication Instructions Dosage Frequency Start Date End Date Duration Status Metoprolol Tartrate 25 MG Orally Twice a day 1 tablet with food 12h Active Sensipar 60 mg Orally Once a day 2 tablets 24h Active Coumadin 5 mg Orally Once a day everyday 1 tablet Apr, Active Renvela 800 MG Orally Three times a day 2 tablets 8h 20 Active Amiodarone HCl 100 MG Orally Once a day 1 tablet 24h Active ClomiPRAMINE HCl 50 mg Orally Once a day 2 capsules 24h 30 Active Atorvastatin Calcium 40 mg Orally Once a day 1 tablet 24h 30 Active RESULTS Name Result Date Reference Range Xray : Foot, Right 3 views (IN HOUSE) 2016-06-11 PROCEDURES Procedure Date Ordered Result Body Site X-RAY EXAM OF FOOT June 11, 2016 [facility] VISIT ESTABLISHED PATIENT June 11, 2016 IMMUNIZATIONS No Known Immunizations MEDICAL (GENERAL) HISTORY Type Description Date Medical History Decreased Kidney Function Medical History Hypertension Medical History Hyperlipidemia 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
--- OUTSIDE RECORDS SUMMARY | 2017-03-07 20:10 | XMS REPORT ---
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 Active 803672 Problem Insomnia, unspecified type G47.00 Active 891777653 Problem Kidney failure N19 Active 75085899 Problem Recurrent major depressive disorder, in full remission F33.42 Active 717846490 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 Active 340858332 Problem 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 273581923 Problem End stage renal disease N18.6 Active 34181867 Problem Chronic fatigue R53.82 Active 44747386 Problem 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 526940762 ALLERGIES No Information SOCIAL HISTORY Never Assessed PLAN OF CARE VITAL SIGNS MEDICATIONS Unknown Medications RESULTS No Results PROCEDURES No Known procedures IMMUNIZATIONS No Known Immunizations MEDICAL (GENERAL) HISTORY Type Description Date Medical History Decreased Kidney Function Medical History Hypertension Medical History Hyperlipidemia 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
--- OUTSIDE RECORDS SUMMARY | 2017-03-07 20:10 | XMS REPORT ---
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 Active 666247 Problem Insomnia, unspecified type G47.00 Active 007060802 Problem Kidney failure N19 Active 42462442 Problem Recurrent major depressive disorder, in full remission F33.42 Active 837638302 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 Active 800527823 Problem 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 636617756 Problem End stage renal disease N18.6 Active 36394563 Problem Chronic fatigue R53.82 Active 52002475 Problem 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 025152179 ALLERGIES No Information SOCIAL HISTORY Never Assessed PLAN OF CARE VITAL SIGNS MEDICATIONS Unknown Medications RESULTS No Results PROCEDURES No Known procedures IMMUNIZATIONS No Known Immunizations MEDICAL (GENERAL) HISTORY Type Description Date Medical History Decreased Kidney Function Medical History Hypertension Medical History Hyperlipidemia 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
[2017-03-07] MEDS ORDERED: fentaNYL INJECTION 100 MCG/2 ML AMP IVP ONE (21:30)
--- NOTE | 2017-03-07 21:30 | ED Back Pain ---
General Chief Complaint: Back Problems Stated Complaint: BACK PAIN Nursing Triage Note: Ambulatory to ED 2 with reports of lower back pain x 3 days. Denies any known injury or cause. Denies any urinary symptoms. Denies taking any OTC medications. Nursing Sepsis Screen: No Definite Risk Source of Information: Patient, Caregiver Exam Limitations: No Limitations History of Present Illness Time Seen by Provider: 21:17 Initial Comments Patient presents to ER by private conveyance with a chief complaint of 3 days progressively worsening low back pain on the left side. She has used Tylenol with no effect. She has used heating pads with no effect. The pain is throbbing constant and at its worst is 10 out of 10 and 5 out of 10 presently. She has not have any opiates for it at this time. She had a fall in November, 3 months ago which she fractured her left arm and was using oxycodone at that time with good effect on her bone pain. She has not use any opiates today. She has not seen anybody yet for this pain. She does not have a history of chronic low back pain like this before. She has not had any other falls or trauma since November. She is on dialysis Tuesdays, , Wednesday and she says after her dialysis session the pain was a lot worse from sitting in the chair. Moving makes it worse. She's been having normal bowel movements and her appetite is normal. She's had no cough, fevers, chills, weakness, malaise, rash. She says she still urinates to her to 3 times a day 2-3 ounces at a time and has seen no blood in it or malodor. She denies any numbness, weakness, paresthesia of her lower extremities. The pain does not radiate. Allergies and Home Medications Allergies Coded Allergies: povidone-iodine (Verified Allergy, Mild, 12/05/16) ranitidine (Verified Allergy, Mild, 12/05/16) soap (Verified Allergy, Mild, 12/05/16) tetracycline (Verified Allergy, Mild, 12/05/16) Penicillins (Verified Allergy, Unknown, 12/05/16) Sulfa (Sulfonamide Antibiotics) (Verified Allergy, Unknown, 12/05/16) Uncoded Allergies: NARCOTIC (Allergy, Mild, 12/01/16) Home Medications Cinacalcet HCl 90 Mg Tablet, 90 MG PO BID, (Reported) Metoprolol Tartrate 25 Mg Tablet, 25 MG PO DAILY, (Reported) Sevelamer Carbonate 800 Mg Tablet, 1,600 MG PO TIDWM, (Reported) TAKES 2 (800 MG) TABLETS Constitutional: No chills, No diaphoresis EENTM: see HPI Respiratory: see HPI Cardiovascular: No chest pain, No edema, No palpitations Gastrointestinal: No abdominal pain, No constipation, No diarrhea, No loss of appetite, No nausea, No vomiting Genitourinary: see HPI, decreased output, No discharge, No dysuria, No frequency, No incontinence Past Fkcbnpi-Xeugof-Yrokjh Hx Patient Social History Alcohol Use: Denies Use Recreational Drug Use: No Smoking Status: Never a Smoker 2nd Hand Smoke Exposure: No Recent Foreign Travel: No Contact w/Someone Who Travel: No Recent Infectious Disease Expo: No Recent Hopitalizations: No Physical Abuse: No Sexual Abuse: No Mistreated: No Fear: No Immunizations Up To Date Tetanus Booster (TDap): Unknown Date of Pneumonia Vaccine: Jan 04, 2012 Date of Influenza Vaccine: Jan 31, 2016 Seasonal Allergies Seasonal Allergies: No Surgeries History of Surgeries: Yes Surgeries: Dialysis, Orthopedic, Vascular Surgery Respiratory History of Respiratory Disorde: No Currently Using CPAP: No Currently Using BIPAP: No Cardiovascular History of Cardiac Disorders: Yes Cardiac Disorders: Atrial Fibrillation, Heart Murmur, High Cholesterol, Hypertension, Irregular Heartbeat Neurological History of Neurological Disord: No Reproductive System Hx Reproductive Disorders: No Genitourinary History of Genitourinary Disor: Yes Genitourinary Disorders: Renal Failure, Dialysis Gastrointestinal History of Gastrointestinal Di: No Musculoskeletal History of Musculoskeletal Dis: Yes (LEFT WRIST FRACTURE) Endocrine History of Endocrine Disorders: No HEENT History of HEENT Disorders: No Cancer History of Cancer: No Psychosocial History of Psychiatric Problem: Yes Suicide Risk Score: 0 Integumentary History of Skin or Integumenta: No Blood Transfusions History of Blood Disorders: No Adverse Reaction to a Blood Tr: No Family Medical History Significant Family History: No Pertinent Family Hx Family Medial History: Patient reports no known family medical history. Physical Exam Vital Signs Vital Sign - Last 12Hours 03/07/17 20:51 Temp 98.4 Pulse 78 Resp 16 B/P (MAP) 141/64 (89) Pulse Ox 94 O2 Delivery Room Air Capillary Refill : Less Than 3 Seconds General Appearance: WD/WN, Mild Distress HEENT: PERRL/EOMI, Pharynx Normal Neck: Full Range of Motion, Normal Inspection, Non Tender, Supple Cardiovascular: Regular Rate, Rhythm, No Edema Respiratory: Chest Non Tender, Lungs Clear, Normal Breath Sounds Peripheral Pulses: 2+ Dorsalis Pedis (R), 2+ Left Dors-Pedis (L), 2+ Radial Pulses (R), 2+ Radial Pulses (L) Gastrointestinal: No Organomegaly, Non Tender, Soft, Abnormal Bowel Sounds ( hyperactive), No Distended Back: Normal Inspection, No CVA Tenderness, No Vertebral Tenderness Extremity: Normal Capillary Refill, No Pedal Edema Neurologic/Psychiatric: Alert, Oriented x3 Skin: Normal Color, Warm/Dry Progress/Results/Core Measures Results/Orders Lab Results Laboratory Tests Test 03/07/17 21:42 03/07/17 21:48 Range/Units Urine Color YELLOW Urine Clarity SLIGHTLY CLOUDY Urine pH 8 5-9 Urine Specific Murphy 1.010 L 1.016-1.022 Urine Protein 3+ H NEGATIVE Urine Glucose (UA) NEGATIVE NEGATIVE Urine Ketones NEGATIVE NEGATIVE Urine Nitrite NEGATIVE NEGATIVE Urine Bilirubin NEGATIVE NEGATIVE Urine Urobilinogen NORMAL NORMAL MG/DL Urine Leukocyte Esterase 1+ H NEGATIVE Urine RBC (Auto) 2+ H NEGATIVE Urine RBC RARE /HPF Urine WBC 0-2 /HPF Urine Squamous Epithelial Cells 5-10 /HPF Urine Crystals NONE /LPF Urine Bacteria TRACE /HPF Urine Casts NONE /LPF Urine Mucus NEGATIVE /LPF Urine Culture Indicated NO White Blood Count 7.1 4.3-11.0 10^3/uL Red Blood Count 3.44 L 4.35-5.85 10^6/uL Hemoglobin 10.6 L 11.5-16.0 G/DL Hematocrit 33 L 35-52 % Mean Corpuscular Volume 96 80-99 FL Mean Corpuscular Hemoglobin 31 25-34 PG Mean Corpuscular Hemoglobin Concent 32 32-36 G/DL Red Cell Distribution Width 16.4 H 10.0-14.5 % Platelet Count 240 130-400 10^3/uL Mean Platelet Volume 10.8 H 7.4-10.4 FL Neutrophils (%) (Auto) 64 42-75 % Lymphocytes (%) (Auto) 21 12-44 % Monocytes (%) (Auto) 9 0-12 % Eosinophils (%) (Auto) 5 0-10 % Basophils (%) (Auto) 1 0-10 % Neutrophils # (Auto) 4.5 1.8-7.8 X 10^3 Lymphocytes # (Auto) 1.5 1.0-4.0 X 10^3 Monocytes # (Auto) 0.6 0.0-1.0 X 10^3 Eosinophils # (Auto) 0.4 H 0.0-0.3 10^3/uL Basophils # (Auto) 0.1 0.0-0.1 10^3/uL Sodium Level 136 135-145 MMOL/L Potassium Level 4.1 3.6-5.0 MMOL/L Chloride Level 92 L 98-107 MMOL/L Carbon Dioxide Level 27 21-32 MMOL/L Anion Gap 17 H 5-14 MMOL/L Blood Urea Nitrogen 47 H 7-18 MG/DL Creatinine 5.69 H 0.60-1.30 MG/DL Estimat Glomerular Filtration Rate 7 BUN/Creatinine Ratio 8 Glucose Level 84 70-105 MG/DL Calcium Level 8.6 8.5-10.1 MG/DL Total Bilirubin 0.4 0.1-1.0 MG/DL Aspartate Amino Transf (AST/SGOT) 19 5-34 U/L Alanine Aminotransferase (ALT/SGPT) 24 0-55 U/L Alkaline Phosphatase 97 40-136 U/L Total Protein 7.2 6.4-8.2 GM/DL Albumin 4.0 3.2-4.5 GM/DL My Orders Orders - ENRICO LINDSEY Ct Abdomen/Pelvis Wo (03/07/17 21:23) Saline Lock/Iv-Start (03/07/17 21:23) Cbc With Automated Diff (03/07/17 21:23) Comprehensive Metabolic Panel (03/07/17 21:23) Ua Culture If Indicated (03/07/17 21:23) Fentanyl Injection (Sublimaze Injection (03/07/17 21:30) Hydrocodone/Apap 5/325 Tablet (Lortab 5 (03/08/17 00:00) Medications Given in ED Current Medications Medications Dose Ordered Sig/Nisha Route Start Time Stop Time Status Last Admin Dose Admin Acetaminophen/ Hydrocodone Bitart 1 tab ONCE ONCE PO 03/08/17 00:00 03/08/17 00:01 DC 03/08/17 00:04 1 TAB Fentanyl Citrate 50 mcg ONCE ONCE IVP 03/07/17 21:30 03/07/17 21:32 DC 03/07/17 21:50 50 MCG Vital Signs/I&O Vital Sign - Last 12Hours 03/07/17 03/07/17 03/07/17 03/08/17 20:51 21:50 22:20 00:04 Temp 98.4 98.4 98.4 98.4 Pulse 78 Resp 16 B/P (MAP) 141/64 (89) Pulse Ox 94 O2 Delivery Room Air Blood Pressure Mean: 89 Progress Note #1: Time: 21:29 Progress Note Patient elicit some mild amount of tenderness over her sciatic nerve on the left side but this is not consistent with her pain that she presents for. She is not having any pain or spasm in the muscles in the left paraspinous lumbar region. Concern for retroperitoneal UTI, or other infection. Concern for malignancy. We'll get CT scan and some basic blood work which will obviously be obscured by her need for dialysis Wednesday. Progress Note #2: Time: 22:29 Progress Note Hemoglobin dropped 2 mg from last time. This could be explained by her end- stage renal disease and is not significant at this time nor does explain her current symptoms. The rest of her findings and lab probably explained by her ongoing hemodialysis. Progress Note #3: Time: 00:25 Progress Note Clinically her imaging does correlate to constipation and possible small bowel ileus. It's mild and the patient has had no complaints of constipation. It may explain her pain. She is responded well to opiates but we'll not be sending her out on opiates if this will worsen her constipation. She is okay with this plan. We have discussed MiraLAX once a day for the next couple days. We have discussed her fluid balance. Diagnostic Imaging Diagonstic Imaging: CT Plain Films/CT/US/NM/MRI: abdomen, pelvis Comments Moderate hiatal hernia was suspected wall thickening of the distal esophagus. Trace right pleural effusion with adjacent opacity the right lower lobe atelectasis versus infiltrate or other etiology. Consider follow-up imaging to reassess. Small gallstone without acute cholecystitis. Masslike fullness thickening of the anorectal junction possibly hemorrhoids versus mass. Moderate stool in the colon correlate for constipation with air-fluid levels within the small bowel without any transition point suggests a small bowel obstruction. A mild ileus or nonspecific enteritis cannot be excluded in the appropriate setting. Atrophic kidneys without hydronephrosis. Cardiomegaly incompletely visualized. Osseous degenerative changes with left superior and inferior pubic rami fractures of indeterminate age. Reviewed: Reviewed [place] Study Departure Impression Impression: Primary Impression: Constipation Qualified Codes: K59.00 - Constipation, unspecified Additional Impressions: Ileus, unspecified ESRD on dialysis Disposition: HOME, SELF-CARE Condition: Stable Departure-Patient Inst. Decision time for Depature: 00:27 Referrals: NALLELY SOLIMAN MD (PCP/Family) Primary Care Physician Patient Instructions: Constipation in Adults Add. Discharge Instructions: Stay active and walk around the house. Chew bubble gum and use MiraLAX 1 capful in 6 ounces of fluid daily for the next couple days. You may also use glycerin suppositories. Please keep your follow-up appointment with your primary care physician. If you're pain becomes severe or you start to experience fevers or nausea and vomiting then you should return to the ER. All discharge instructions reviewed with patient and/or family. Voiced understanding. Copy Copies To 1: NALLELY SOLIMAN MD, TITUS J Mar 07, 2017 21:30
[2017-03-07 21:49] LABS: BILIRUBIN,URINE NEGATIVE (NEGATIVE); KETONES,URINE NEGATIVE (NEGATIVE); LEUKOCYTE ESTERASE ,URINE 1+ (NEGATIVE); NITRITE,URINE NEGATIVE (NEGATIVE); PH,URINE 8 (5-9); PROTEIN,URINE 3+ (NEGATIVE); UROBILINOGEN,URINE NORMAL (NORMAL)
[2017-03-07 21:58] LABS: BASOPHILS # (AUTO) 0.1 10^3/uL (0.0-0.1); BASOPHILS % (AUTO) 1 % (0-10); EOSINOPHILS # (AUTO) 0.4 10^3/uL (0.0-0.3); EOSINOPHILS % (AUTO) 5 % (0-10); LYMPHOCYTES # (AUTO) 1.5 X 10^3 (1.0-4.0); LYMPHOCYTES % (AUTO) 21 % (12-44); MEAN CORPUSCULAR HEMOGLOBIN 31 PG (25-34); MEAN CORPUSCULAR HGB CONC 32 G/DL (32-36); MEAN CORPUSCULAR VOLUME 96 FL (80-99); MEAN PLATELET VOLUME 10.8 FL (7.4-10.4); MONOCYTES # (AUTO) 0.6 X 10^3 (0.0-1.0); MONOCYTES % (AUTO) 9 % (0-12); NEUTROPHILS # (AUTO) 4.5 X 10^3 (1.8-7.8); NEUTROPHILS % (AUTO) 64 % (42-75); PLATELET COUNT 240 10^3/uL (130-400); RED BLOOD COUNT 3.44 10^6/uL (4.35-5.85); RED CELL DISTRIBUTION WIDTH 16.4 % (10.0-14.5); WHITE BLOOD COUNT 7.1 10^3/uL (4.3-11.0)
[2017-03-07 22:03] LABS: WBC,URINE 0-2 /HPF
[2017-03-07 22:18] LABS: BILIRUBIN,TOTAL 0.4 MG/DL (0.1-1.0); CALCIUM 8.6 MG/DL (8.5-10.1); CREATININE SERUM 5.69 MG/DL (0.60-1.30); POTASSIUM 4.1 MMOL/L (3.6-5.0); TOTAL PROTEIN 7.2 GM/DL (6.4-8.2)
[2017-03-08] MEDS ORDERED: HYDROcodone/APAP 5 MG/325 MG (LORTAB) TAB PO ONE
[2017-03-08 00:39] VITALS: BP 158/69
--- NOTE | 2017-03-08 06:15 | Diagnostic Imaging Report ---
PROCEDURE: CT abdomen and pelvis without contrast. TECHNIQUE: Multiple contiguous axial images were obtained through the abdomen and pelvis without the use of intravenous contrast. INDICATION: Back pain. No priors. FINDINGS: There is fluid dilatation of small bowel throughout the abdomen and pelvis without a discrete transition zone. This could be ileus or nonspecific enteritis. There is mildly elevated colonic fecal load raising the question of mild constipation but no focal impaction or adriel large bowel obstruction. Severe chronic nonobstructive renal atrophy present. There is nonaneurysmal aortoiliac atherosclerosis. Moderate retrocardiac gastric hernia. The visualized esophagus above that level circumferentially thickened. Correlate with features of reflux esophagitis which may explain all of the findings. Curvilinear opacity in the right lower lobe adjacent to a small amount of pleural fluid is believed to reflect partial atelectasis but followup chest CT in the 2-3 months recommended to exclude less likely possibility of mass. Subacute incompletely healed left superior and inferior pubic binta fractures. There is subacute healing likely insufficiency type fracture of the left sacral ala. An acute appearing bony injury is not apparent. No pneumatosis. No free air. No appendicitis. There is no diverticulitis. Splenic granulomata benign. There is a small gallstone without evidence for acute cholecystitis. IMPRESSION: 1. Small bowel dilatation without transition zone could be seen in ileus or nonspecific enteritis. We note borderline constipation without impaction or focal obstruction and no viscus perforation or abscess. 2. Curvilinear irregular opacity right lung base subpleural probably partial atelectasis but more pronounced. Soft tissue and its density than typically encountered and followup chest CT in 2-3 months suggested. 3. Hiatal hernia with distal esophageal wall thickening suggest reflux correlate clinically. 4. Cholelithiasis with chronic nonobstructive renal atrophy. 5. Subacute healing left pelvic fractures involving the superior and inferior ramus as well as the left sacral ala. Dictated by: Dictated on workstation # [id number]
== END 2017-03-08 00:39 | disposition home or self-care (01) ==
LOC: EDUNIT# 20:01 → ER 20:03
DX: K59.00 Constipation, unspecified (principal); K56.7 Ileus, unspecified; I12.0 Hypertensive chronic kidney disease with stage 5 chronic kidney disease or end stage renal disease; N18.6 End stage renal disease; I48.91 Unspecified atrial fibrillation; E78.00 Pure hypercholesterolemia, unspecified; Z99.2 Dependence on renal dialysis
CPT/HCPCS: 36415; 74176; 80053; 81000; 85025

== ENCOUNTER → 2017-04-01 | Outpatient (CLI) | payer MEDICARE, MEDICAID ==
[~2017-04-01] VITALS: Ht 165.1 cm; Wt 54.4 kg
[~2017-04-01] MED LIST changes: +NS IV 500 ML 500 ML IV ONE
[2017-04-01 11:40] VITALS: BP 143/57
[2017-04-01 12:45] VITALS: BP 134/82
[2017-04-01 13:00] VITALS: BP 138/78
[2017-04-01 14:55] VITALS: BP 142/68
[2017-04-01 15:07] LABS: HEMOGLOBIN 8.8 G/DL (11.5-16.0)
[2017-04-01 16:10] VITALS: BP 143/57
== END ==
LOC: SDC 11:16
PROVIDERS: ATTEND Family Medicine
DX: D64.9 Anemia, unspecified (principal)
CPT/HCPCS: 36415; 36430; 85014; 85018; 86850; 86900; 86901; 86920

== ENCOUNTER 2017-04-12 12:26 | Emergency (ER) | payer MEDICARE, MEDICAID ==
[~2017-04-12] VITALS: Ht 165.1 cm; Wt 54.4 kg
[~2017-04-12 12:26] MED LIST changes: -NS IV 500 ML 500 ML IV ONE
--- OUTSIDE RECORDS SUMMARY | 2017-04-12 12:32 | XMS REPORT | Clinical Summary ---
Author Author [facility] Organization [facility] Address Unknown Phone Unavailable Care Team Providers Care Wet Room Supervisor Name Role Phone PCP Unavailable Source Comments Some departments are not documenting in the electronic medical record. If you do not see the information that you expected, contact Release of Information in the Health Information Management department at [phone] for further assistance in locating additional records.[facility] Allergies Active Allergy Reactions Severity Noted Date [...]
--- OUTSIDE RECORDS SUMMARY | 2017-04-12 12:32 | XMS REPORT | Continuity of Care Document ---
Author Author [employer] Organization [facility] Address Unknown Phone Unavailable Care Team Providers Care Anaesthetic Technician Name Role Phone [employer] Unavailable Unavailable Problems Medications Allergies, Adverse Reactions, Alerts Immunizations Results Vital Signs Encounters Location Location Details Encounter Type Encounter Number Reason For Visit Attending Provider ADM Date DC Date Status Source OUTPATIENT [id number] SIGRID TIDWELL 05/25/2014 05/25/2014 Active [facility] Procedures Plan of Care Social History Assessment and Plan Family History Advance Directives Functional Status
--- NOTE | 2017-04-12 12:44 | ED Respiratory ---
General Stated Complaint: SOA Source: patient Exam Limitations: no limitations History of Present Illness Time seen by provider: 12:34 Initial Comments Patient presents to ER by private conveyance with her son and a chief complaint that late last night she started getting more short of breath felt like she is having fluid reaccumulation on her chest. She has a history of being on hemodialysis Wednesday, and Wednesday. She does not have any problems Wednesday with her last hemodialysis and is not scheduled until tomorrow. In the past she's had pleural effusions that have needed to be drained because it causes shortness of breath similar to this. She is also known to Dr. Fortune and he has scheduled an echocardiogram soon. She's had no fevers, cough, sore throat , nasal congestion, chest pain, abdominal pain. She did get so short of breath that she vomited times one without blood in it earlier today. Plan was to get into the doctor's office today but they're not available until tomorrow so she came to the ER. The son also murmurs the last couple months that the patient had anemia with a hemoglobin of 6.6 and had to go get a couple units transfused. Within the last month they had it rechecked and it was 8.6. After the transfusion was 8.8. At that time apparently there was concern for a bleed from the bowel but she has not got set up to do colonoscopy yet. They're going to wait and see if that he stayed up before they committed her to such a procedure. The son recollects that the patient is mostly a 24 ounce fluid restriction because her difficult to stay compliant with. The patient relates that yesterday she was complaining she is very thirsty so friend at the [facility] brought her a large glass of ice tea which she drank. This seemed to precede her symptoms. Allergies and Home Medications Allergies Coded Allergies: povidone-iodine (Verified Allergy, Mild, 12/05/16) ranitidine (Verified Allergy, Mild, 12/05/16) soap (Verified Allergy, Mild, 12/05/16) tetracycline (Verified Allergy, Mild, 12/05/16) Penicillins (Verified Allergy, Unknown, 12/05/16) Sulfa (Sulfonamide Antibiotics) (Verified Allergy, Unknown, 12/05/16) Uncoded Allergies: NARCOTIC (Allergy, Mild, 12/01/16) Home Medications Cinacalcet HCl 90 Mg Tablet, 90 MG PO BID, (Reported) Metoprolol Tartrate 25 Mg Tablet, 25 MG PO DAILY, (Reported) Sevelamer Carbonate 800 Mg Tablet, 1,600 MG PO TIDWM, (Reported) TAKES 2 (800 MG) TABLETS Constitutional: No chills, No diaphoresis EENTM: no symptoms reported, No ear pain Respiratory: No cough Cardiovascular: No Hx of Intervention, No palpitations, No syncope Gastrointestinal: No abdominal pain, No constipation, nausea, vomiting Genitourinary: No discharge, No dysuria Skin: No pruritus, No rash Past Gkrmizn-Rbqvoc-Ymjjdu Hx Patient Social History Alcohol Use: Denies Use Recreational Drug Use: No Smoking Status: Never a Smoker 2nd Hand Smoke Exposure: No Recent Foreign Travel: No Contact w/Someone Who Travel: No Recent Hopitalizations: No Immunizations Up To Date Tetanus Booster (TDap): Unknown Date of Pneumonia Vaccine: Jan 04, 2012 Date of Influenza Vaccine: Jan 31, 2016 Seasonal Allergies Seasonal Allergies: No Surgeries History of Surgeries: Yes Surgeries: Dialysis, Orthopedic, Vascular Surgery Respiratory History of Respiratory Disorde: No Currently Using CPAP: No Currently Using BIPAP: No Cardiovascular History of Cardiac Disorders: Yes Cardiac Disorders: Atrial Fibrillation, Heart Murmur, High Cholesterol, Hypertension, Irregular Heartbeat Neurological History of Neurological Disord: No Reproductive System Hx Reproductive Disorders: No Genitourinary History of Genitourinary Disor: Yes Genitourinary Disorders: Renal Failure, Dialysis Gastrointestinal History of Gastrointestinal Di: No Musculoskeletal History of Musculoskeletal Dis: Yes (LEFT WRIST FRACTURE) Endocrine History of Endocrine Disorders: No HEENT History of HEENT Disorders: No Cancer History of Cancer: No Psychosocial History of Psychiatric Problem: Yes Integumentary History of Skin or Integumenta: No Blood Transfusions History of Blood Disorders: No Adverse Reaction to a Blood Tr: No Family Medical History Significant Family History: No Pertinent Family Hx Family Medial History: Patient reports no known family medical history. Physical Exam Vital Signs Vital Sign - Last 12Hours 04/12/17 13:06 Temp 98.9 Pulse 65 Resp 18 B/P (MAP) 124/58 (80) Pulse Ox 100 Capillary Refill : General Appearance: WD/WN, mild distress Eyes: Bilateral Eye Normal Inspection, Bilateral Eye PERRL, Bilateral Eye EOMI HEENT: PERRL/EOMI, normal ENT inspection, TMs normal, pharynx normal Neck: non-tender, full range of motion, supple, normal inspection Respiratory: chest non-tender, lungs clear, normal breath sounds, respiratory distress (mild), accessory muscle use (mild to moderate) Cardiovascular: normal peripheral pulses, regular rate, rhythm, no edema Gastrointestinal: normal bowel sounds, non tender, soft Neurologic/Psychiatric: alert, oriented x 3 Skin: normal color, warm/dry Progress/Results/Core Measures Suspected Sepsis SIRS Temperature: Pulse: Respiratory Rate: Laboratory Tests 04/12/17 12:50: White Blood Count 6.8 Blood Pressure / Mean: Laboratory Tests 04/12/17 12:50: Creatinine 6.26H, Platelet Count 197, Total Bilirubin 0.4 Results/Orders Lab Results Laboratory Tests Test 04/12/17 12:50 Range/Units White Blood Count 6.8 4.3-11.0 10^3/uL Red Blood Count 3.00 L 4.35-5.85 10^6/uL Hemoglobin 9.4 L 11.5-16.0 G/DL Hematocrit 29 L 35-52 % Mean Corpuscular Volume 97 80-99 FL Mean Corpuscular Hemoglobin 31 25-34 PG Mean Corpuscular Hemoglobin Concent 32 32-36 G/DL Red Cell Distribution Width 15.6 H 10.0-14.5 % Platelet Count 197 130-400 10^3/uL Mean Platelet Volume 11.3 H 7.4-10.4 FL Neutrophils (%) (Auto) 76 H 42-75 % Lymphocytes (%) (Auto) 12 12-44 % Monocytes (%) (Auto) 7 0-12 % Eosinophils (%) (Auto) 4 0-10 % Basophils (%) (Auto) 1 0-10 % Neutrophils # (Auto) 5.2 1.8-7.8 X 10^3 Lymphocytes # (Auto) 0.8 L 1.0-4.0 X 10^3 Monocytes # (Auto) 0.5 0.0-1.0 X 10^3 Eosinophils # (Auto) 0.3 0.0-0.3 10^3/uL Basophils # (Auto) 0.1 0.0-0.1 10^3/uL Sodium Level 137 135-145 MMOL/L Potassium Level 3.8 3.6-5.0 MMOL/L Chloride Level 96 L 98-107 MMOL/L Carbon Dioxide Level 26 21-32 MMOL/L Anion Gap 15 H 5-14 MMOL/L Blood Urea Nitrogen 55 H 7-18 MG/DL Creatinine 6.26 H 0.60-1.30 MG/DL Estimat Glomerular Filtration Rate 6 BUN/Creatinine Ratio 9 Glucose Level 84 70-105 MG/DL Calcium Level 9.0 8.5-10.1 MG/DL Total Bilirubin 0.4 0.1-1.0 MG/DL Aspartate Amino Transf (AST/SGOT) 30 5-34 U/L Alanine Aminotransferase (ALT/SGPT) 34 0-55 U/L Alkaline Phosphatase 91 40-136 U/L Troponin I < 0.30 <0.30 NG/ML B-Type Natriuretic Peptide 3056.6 H <100.0 PG/ML Total Protein 6.6 6.4-8.2 GM/DL Albumin 4.0 3.2-4.5 GM/DL Micro Results Microbiology 04/12/17 Influenza Types A,B Antigen (PADMINI) - Final, Complete My Orders Orders - ENRICO LINDSEY BNP (04/12/17 12:37) Cbc With Automated Diff (04/12/17 12:37) Comprehensive Metabolic Panel (04/12/17 12:37) Troponin I (04/12/17 12:37) Influenza A And B Antigens (04/12/17 12:37) Chest 1 View, Ap/Pa Only (04/12/17 12:37) Ekg Tracing (04/12/17 12:37) Continuous Ekg Monitoring (04/12/17 12:37) Vital Signs/I&O Vital Sign - Last 12Hours 04/12/17 13:06 Temp 98.9 Pulse 65 Resp 18 B/P (MAP) 124/58 (80) Pulse Ox 100 Capillary Refill : Progress Note #1: Time: 12:42 Progress Note Plan to check an influenza swab, chest x-ray, CBC and CMP. We'll get a BNP as well. Echocardiogram from 2016 shows ejection fraction 35%. Severe tricuspid regurg with moderate to severe pulmonary hypertension. Severe mitral regurg and stenosis. Moderate aortic insufficiency with borderline to mild aortic stenosis. Progress Note #2: Time: 14:28 Progress Note Patient is been on room air for most of her visit with normal vital signs. She is not having any coughing, sputum production, shortness of air, adventitious vital signs. At this point her clinically indicated volume overload secondary to probable end-stage renal dialysis is probably okay to be treated outpatient at her dialysis appointment tomorrow morning at 6. She's been given strict return precautions ECG Initial ECG Impression Date: Apr 12, 2017 Initial ECG Impression Time: 12:56 Initial ECG Rate: 65 Initial ECG Rhythm: Normal Sinus Initial ECG Intervals: Normal Initial ECG Impression: Normal Initial ECG Comparisson: No Previous ECG Available Comment No T-wave elevation or depression. Diagnostic Imaging Diagonstic Imaging: Xray Plain Films/CT/US/NM/MRI: chest (1v) Comments Pulmonary congestion and maybe some mild pulmonary effusions that are probably not significant. No infiltrates or acute cardio pulmonary processes otherwise noted. [facility] [place], [place] NAME: DARNELL FRANKLIN MED REC#: [id number] PT STATUS: REG ER : 1940 PHYSICIAN: ENRICO LINDSEY MD ADMIT DATE: 04/12/17/ER Draft Date of Exam:04/12/17 CHEST 1 VIEW, AP/PA ONLY EXAMINATION: Portable erect AP chest at 1:10 PM. INDICATION: Shortness of breath, cough. FINDINGS: The cardiomegaly and the coarse interstitial densities about the right hilum seen on the prior exam of 12/01/2016 are again evident and essentially no different. There also still appears to be a small amount of fluid in the right lung base. Also, as on the prior exam, there is slight prominence of the interstitial densities in both lungs. The calcified granuloma in the left upper lung seen on the prior exam of 02/12/2016 is also again visualized and no different. The mediastinum is not widened. The osseous structures are intact. IMPRESSION: There is cardiomegaly and chronic pulmonary disease but there is no acute abnormality identified. Clinical followup is recommended. Dictated on workstation # [id number] Dict: 04/12/17 1337 Trans: 04/12/17 1345 [id number] Interpreted by: FOUZIA THACKER MD Electronically signed by: Reviewed: Reviewed by Me Departure Impression Impression: Primary Impression: ESRD on dialysis Additional Impression: Volume overload Qualified Codes: E87.79 - Other fluid overload Disposition: 01 HOME, SELF-CARE Condition: Stable Departure-Patient Inst. Decision time for Depature: 14:29 Referrals: NALLELY SOLIMAN MD (PCP/Family) Primary Care Physician Patient Instructions: End Stage Kidney Disease (DC) Add. Discharge Instructions: Please keep your appointment at dialysis tomorrow morning. If you begin to have chest pain, shortness of breath, nausea and vomiting or other concerning symptoms return to the ER for evaluation. Copy Copies To 1: HORACIO BARRY TITUS J Apr 12, 2017 12:44
[2017-04-12 12:58] LABS: BASOPHILS # (AUTO) 0.1 10^3/uL (0.0-0.1); BASOPHILS % (AUTO) 1 % (0-10); EOSINOPHILS # (AUTO) 0.3 10^3/uL (0.0-0.3); EOSINOPHILS % (AUTO) 4 % (0-10); HEMATOCRIT 29 % (35-52); HEMOGLOBIN 9.4 G/DL (11.5-16.0); LYMPHOCYTES # (AUTO) 0.8 X 10^3 (1.0-4.0); LYMPHOCYTES % (AUTO) 12 % (12-44); MEAN CORPUSCULAR HEMOGLOBIN 31 PG (25-34); MEAN CORPUSCULAR HGB CONC 32 G/DL (32-36); MEAN CORPUSCULAR VOLUME 97 FL (80-99); MEAN PLATELET VOLUME 11.3 FL (7.4-10.4); MONOCYTES # (AUTO) 0.5 X 10^3 (0.0-1.0); MONOCYTES % (AUTO) 7 % (0-12); NEUTROPHILS # (AUTO) 5.2 X 10^3 (1.8-7.8); NEUTROPHILS % (AUTO) 76 % (42-75); PLATELET COUNT 197 10^3/uL (130-400); RED CELL DISTRIBUTION WIDTH 15.6 % (10.0-14.5); WHITE BLOOD COUNT 6.8 10^3/uL (4.3-11.0)
[2017-04-12 13:15] LABS: ALANINE AMINOTRANSFERASE 34 U/L (0-55); ALKALINE PHOSPHATASE 91 U/L (40-136); BILIRUBIN,TOTAL 0.4 MG/DL (0.1-1.0); BUN/CREATININE RATIO 9; CARBON DIOXIDE 26 MMOL/L (21-32); CHLORIDE 96 MMOL/L (98-107); CREATININE SERUM 6.26 MG/DL (0.60-1.30); GFR ESTIMATED 6; GLUCOSE 84 MG/DL (70-105); POTASSIUM 3.8 MMOL/L (3.6-5.0); SODIUM 137 MMOL/L (135-145); TOTAL PROTEIN 6.6 GM/DL (6.4-8.2)
--- NOTE | 2017-04-12 13:46 | Diagnostic Imaging Report ---
EXAMINATION: Portable erect AP chest at 1:10 PM. INDICATION: Shortness of breath, cough. FINDINGS: The cardiomegaly and the coarse interstitial densities about the right hilum seen on the prior exam of 12/01/2016 are again evident and essentially no different. There also still appears to be a small amount of fluid in the right lung base. Also, as on the prior exam, there is slight prominence of the interstitial densities in both lungs. The calcified granuloma in the left upper lung seen on the prior exam of 02/12/2016 is also again visualized and no different. The mediastinum is not widened. The osseous structures are intact. IMPRESSION: There is cardiomegaly and chronic pulmonary disease but there is no acute abnormality identified. Clinical followup is recommended. Dictated by: Dictated on workstation # [id number]
[2017-04-12 14:53] VITALS: BP 124/58
== END 2017-04-12 14:55 | disposition home or self-care (01) ==
LOC: EDUNIT# 12:26 → ER 12:28
DX: I12.0 Hypertensive chronic kidney disease with stage 5 chronic kidney disease or end stage renal disease (principal); N18.6 End stage renal disease; E87.79 Other fluid overload; I48.91 Unspecified atrial fibrillation; E78.00 Pure hypercholesterolemia, unspecified; Z99.2 Dependence on renal dialysis
CPT/HCPCS: 36415; 71045; 80053; 83880; 84484; 85025; 87804; 93005

== ENCOUNTER 2017-04-20 16:21 | Emergency (ER) | payer MEDICARE, MEDICAID ==
[~2017-04-20] VITALS: Ht 165.1 cm; Wt 55.3 kg
--- OUTSIDE RECORDS SUMMARY | 2017-04-20 16:27 | XMS REPORT | Continuity of Care Document ---
Author Author [employer] Organization [facility] Address Unknown Phone Unavailable Care Team Providers Care Linux Consultant Name Role Phone [employer] Unavailable Unavailable Problems Medications Allergies, Adverse Reactions, Alerts Immunizations Results Vital Signs Encounters Location Location Details Encounter Type Encounter Number Reason For Visit Attending Provider ADM Date DC Date Status Source OUTPATIENT [id number] SIGRID TIDWELL 05/25/2014 05/25/2014 Active [facility] Procedures Plan of Care Social History Assessment and Plan Family History Advance Directives Functional Status
--- OUTSIDE RECORDS SUMMARY | 2017-04-20 16:28 | XMS REPORT | Clinical Summary ---
Author Author [facility] Organization [facility] Address Unknown Phone Unavailable Care Team Providers Care Architecture Intern Name Role Phone PCP Unavailable Source Comments Some departments are not documenting in the electronic medical record. If you do not see the information that you expected, contact Release of Information in the Health Information Management department at [phone] for further assistance in locating additional records.[facility] Allergies Active Allergy Reactions Severity Noted [...]
--- NOTE | 2017-04-20 17:13 | ED Upper Extremity ---
General Stated Complaint: BLEEDING,NEED STITCHES Source: patient History of Present Illness Date Seen by Provider: Apr 20, 2017 Time Seen by Provider: 17:09 Initial Comments Patient to ER with persistent oozing of blood from the dialysis fistula puncture site right upper arm area and this completed at 11 AM today and since then she's been bleeding. Onset: just prior to arrival Severity: moderate Allergies and Home Medications Allergies Coded Allergies: povidone-iodine (Verified Allergy, Mild, 12/05/16) ranitidine (Verified Allergy, Mild, 12/05/16) soap (Verified Allergy, Mild, 12/05/16) tetracycline (Verified Allergy, Mild, 12/05/16) Penicillins (Verified Allergy, Unknown, 12/05/16) Sulfa (Sulfonamide Antibiotics) (Verified Allergy, Unknown, 12/05/16) Uncoded Allergies: NARCOTIC (Allergy, Mild, 12/01/16) Home Medications Cinacalcet HCl 90 Mg Tablet, 90 MG PO BID, (Reported) Metoprolol Tartrate 25 Mg Tablet, 25 MG PO DAILY, (Reported) Sevelamer Carbonate 800 Mg Tablet, 1,600 MG PO TIDWM, (Reported) TAKES 2 (800 MG) TABLETS Constitutional: see HPI EENTM: see HPI Respiratory: no symptoms reported Cardiovascular: no symptoms reported Genitourinary: no symptoms reported Musculoskeletal: no symptoms reported Skin: no symptoms reported Psychiatric/Neurological: No Symptoms Reported Past Fkchwgg-Amgijb-Ubeyhp Hx Patient Social History 2nd Hand Smoke Exposure: No Recent Foreign Travel: No Contact w/Someone Who Travel: No Recent Hopitalizations: No Immunizations Up To Date Tetanus Booster (TDap): Unknown Date of Pneumonia Vaccine: Jan 04, 2012 Date of Influenza Vaccine: Jan 31, 2016 Seasonal Allergies Seasonal Allergies: No Surgeries History of Surgeries: Yes (DIALYSIS GRAFT/SHUNT RIGHT UPPER ARM; RIGHT KNEE TUMOR REMOVAL ) Surgeries: Appendectomy, Dialysis, Hysterectomy, Orthopedic, Tonsillectomy, Vascular Surgery Respiratory History of Respiratory Disorde: No (fluid overload) Currently Using CPAP: No Currently Using BIPAP: No Cardiovascular History of Cardiac Disorders: Yes Cardiac Disorders: Atrial Fibrillation, Heart Murmur, High Cholesterol, Hypertension, Irregular Heartbeat Neurological History of Neurological Disord: No Reproductive System Hx Reproductive Disorders: No Genitourinary History of Genitourinary Disor: Yes Genitourinary Disorders: Renal Failure, Dialysis Gastrointestinal History of Gastrointestinal Di: No Musculoskeletal History of Musculoskeletal Dis: Yes (LEFT WRIST FRACTURE) Endocrine History of Endocrine Disorders: No HEENT History of HEENT Disorders: No Cancer History of Cancer: No Psychosocial History of Psychiatric Problem: Yes Integumentary History of Skin or Integumenta: No Blood Transfusions History of Blood Disorders: No Adverse Reaction to a Blood Tr: No Family Medical History Significant Family History: No Pertinent Family Hx Family Medial History: Patient reports no known family medical history. Physical Exam Vital Signs Vital Sign - Last 12Hours 04/20/17 17:11 Temp 99.0 Pulse 66 Resp 18 B/P (MAP) 134/66 (88) Pulse Ox 97 O2 Delivery Room Air Capillary Refill : General Appearance: WD/WN, no apparent distress HEENT: PERRL/EOMI, normal ENT inspection Neck: non-tender, full range of motion Cardiovascular: other (grade 3-4 of 6) Respiratory: normal breath sounds, no respiratory distress, no accessory muscle use Gastrointestinal: normal bowel sounds, non tender Shoulder: non-tender Elbow/Forearm: normal inspection (in the anterior upper right arm there is an arteriovenous fistula with palpable thrill. There are 2 puncture sites to this. The most proximal puncture site is not actively bleeding. The more distal puncture site is oozing blood but this is easily controlled with direct pressure ), non-tender Neurologic/Psychiatric: alert, normal mood/affect, oriented x 3 Skin: normal color, warm/dry Progress/Results/Core Measures Results/Orders Lab Results Laboratory Tests Test 04/20/17 17:48 Range/Units White Blood Count 5.3 4.3-11.0 10^3/uL Red Blood Count 3.21 L 4.35-5.85 10^6/uL Hemoglobin 10.2 L 11.5-16.0 G/DL Hematocrit 31 L 35-52 % Mean Corpuscular Volume 97 80-99 FL Mean Corpuscular Hemoglobin 32 25-34 PG Mean Corpuscular Hemoglobin Concent 33 32-36 G/DL Red Cell Distribution Width 16.3 H 10.0-14.5 % Platelet Count 205 130-400 10^3/uL Mean Platelet Volume 10.2 7.4-10.4 FL My Orders Orders - ANDREW SIERRA APRN Cbc No Diff (04/20/17 17:00) Vital Signs/I&O Vital Sign - Last 12Hours 04/20/17 17:11 Temp 99.0 Pulse 66 Resp 18 B/P (MAP) 134/66 (88) Pulse Ox 97 O2 Delivery Room Air Departure Communication (Admissions) Progress Notes 1822- the more proximal puncture wound to the fistula is still not bruising or bleeding. The more inferior one bled even after direct pressure and the application of Gelfoam under OpSite. Ultimately ended up causing this with Dermabond and there is no oozing of blood nor is there any hematoma beneath the skin. Impression Impression: Primary Impression: Complication of arteriovenous dialysis fistula Disposition: HOME, SELF-CARE Condition: Improved Departure-Patient Inst. Decision time for Depature: 17:12 Referrals: NALLELY SOLIMAN MD (PCP/Family) Primary Care Physician Patient Instructions: NO INSTRUCTIONS GIVEN Add. Discharge Instructions: 1. Keep this dressing in place until tomorrow. Return to ER for any concerns. He may remove the dressing tomorrow. If you have persistent oozing of blood return to the emergency room. Copy Copies To 1: NALLELY SOLIMAN MD, PETER J APRN Apr 20, 2017 17:13
[2017-04-20 17:55] LABS: HEMOGLOBIN 10.2 G/DL (11.5-16.0); MEAN PLATELET VOLUME 10.2 FL (7.4-10.4); RED BLOOD COUNT 3.21 10^6/uL (4.35-5.85); RED CELL DISTRIBUTION WIDTH 16.3 % (10.0-14.5); WHITE BLOOD COUNT 5.3 10^3/uL (4.3-11.0)
[2017-04-20 18:33] VITALS: BP 139/62
== END 2017-04-20 18:36 | disposition home or self-care (01) ==
LOC: EDUNIT# 16:21 → ER 16:22
DX: T82.838A Hemorrhage due to vascular prosthetic devices, implants and grafts, initial encounter (principal); I48.91 Unspecified atrial fibrillation; E78.00 Pure hypercholesterolemia, unspecified; I10 Essential (primary) hypertension; Z90.49 Acquired absence of other specified parts of digestive tract; Z90.89 Acquired absence of other organs; Z90.710 Acquired absence of both cervix and uterus; Z87.81 Personal history of (healed) traumatic fracture
CPT/HCPCS: 36415; 85027; 99282

== ENCOUNTER 2017-05-29 18:05 | Emergency (ER) | payer MEDICARE, MEDICAID ==
[~2017-05-29] VITALS: Ht 165.1 cm; Wt 52.2 kg
[~2017-05-29 18:05] MED LIST changes: -WARF1TAB6 PO; +WARF1TAB82 PO; +WARF3TAB56 PO; -WARF3TAB6 PO
--- OUTSIDE RECORDS SUMMARY | 2017-05-29 18:10 | XMS REPORT | Continuity of Care Document ---
Author Author [employer] Organization [facility] Address Unknown Phone Unavailable Care Team Providers Care Bulk Coolers Installer Name Role Phone [employer] Unavailable Unavailable Problems Medications Allergies, Adverse Reactions, Alerts Immunizations Results Vital Signs Encounters Location Location Details Encounter Type Encounter Number Reason For Visit Attending Provider ADM Date DC Date Status Source OUTPATIENT [id number] SIGRID TIDWELL 05/25/2014 05/25/2014 Active [facility] Procedures Plan of Care Social History Assessment and Plan Family History Advance Directives Functional Status
--- OUTSIDE RECORDS SUMMARY | 2017-05-29 18:11 | XMS REPORT | Clinical Summary ---
Author Author [facility] Organization [facility] Address Unknown Phone Unavailable Care Team Providers Care Manager Cargo Name Role Phone Aric Escoto MD PCP Martine Blanca MD Unavailable Source Comments Some departments are not documenting in the electronic medical record. If you do not see the information that you expected, contact Release of Information in the Health Information Management department at [phone] for further assistance in locating additional records.[facility] Allergies Active Allergy Reactions Severity Noted [...] SCREENING 2005 PREVNAR/PNEUMOVAX (#1) 2005 INFLUENZA VACCINE 10/27/2017 Results Not on filefrom Last 3 Months
--- NOTE | 2017-05-29 20:40 | ED Respiratory ---
General Chief Complaint: Respiratory Problems Stated Complaint: SOA Nursing Triage Note: pt reports she was diagnosed with influenza on at [facility]. fever was as high as 104. she reports she was improving, but today fever has returned with worsening soa. Source: patient, family Exam Limitations: no limitations History of Present Illness Date Seen by Provider: May 29, 2017 Time Seen by Provider: 20:21 Initial Comments Here with report of recent increasing cough and congestion. She has had a fever recently. She is a dialysis patient and has dialysis on Wednesday, and Wednesday. She did receive her dialysis today. They were concerned because of increased cough. She is not currently on antibiotics. She does have history of fever this week. Has had some intermittent diarrhea. She does not really urinate because of the dialysis. Timing/Duration: week, getting worse Severity: moderate Prior Episodes/Possible Cause: occasional episodes Associated Symptoms: No chest pain/soreness, cough, fever/chills, nasal congestion, shortness of breath, No wheezing Allergies and Home Medications Allergies Coded Allergies: povidone-iodine (Verified Allergy, Mild, 12/05/16) ranitidine (Verified Allergy, Mild, 12/05/16) soap (Verified Allergy, Mild, 12/05/16) tetracycline (Verified Allergy, Mild, 12/05/16) Penicillins (Verified Allergy, Unknown, 12/05/16) Sulfa (Sulfonamide Antibiotics) (Verified Allergy, Unknown, 12/05/16) Uncoded Allergies: NARCOTIC (Allergy, Mild, 12/01/16) Home Medications Cinacalcet HCl 90 Mg Tablet, 90 MG PO BID, (Reported) Metoprolol Tartrate 25 Mg Tablet, 25 MG PO DAILY, (Reported) Sevelamer Carbonate 800 Mg Tablet, 1,600 MG PO TIDWM, (Reported) TAKES 2 (800 MG) TABLETS Patient Home Medication List Home Medication List Reviewed: Yes Constitutional: see HPI, chills, fever, malaise EENTM: nose congestion, No throat pain Respiratory: cough, No short of breath Cardiovascular: No edema, No palpitations Gastrointestinal: diarrhea, nausea, No vomiting Genitourinary: no symptoms reported Musculoskeletal: no symptoms reported All Other Systems Reviewed Negative Unless Noted: Yes Past Apojsii-Rndcrp-Kvwcam Hx Patient Social History Alcohol Use: Denies Use Recreational Drug Use: No Smoking Status: Never a Smoker 2nd Hand Smoke Exposure: No Recent Foreign Travel: No Contact w/Someone Who Travel: No Recent Infectious Disease Expo: No Recent Hopitalizations: No Immunizations Up To Date Tetanus Booster (TDap): Unknown Date of Pneumonia Vaccine: Jan 04, 2012 Date of Influenza Vaccine: Jan 09, 2017 Seasonal Allergies Seasonal Allergies: No Surgeries History of Surgeries: Yes (DIALYSIS GRAFT/SHUNT RIGHT UPPER ARM; RIGHT KNEE TUMOR REMOVAL ) Surgeries: Appendectomy, Dialysis, Hysterectomy, Orthopedic, Tonsillectomy, Vascular Surgery Respiratory History of Respiratory Disorde: No (fluid overload) Currently Using CPAP: No Currently Using BIPAP: No Cardiovascular History of Cardiac Disorders: Yes Cardiac Disorders: Atrial Fibrillation, Heart Murmur, High Cholesterol, Hypertension, Irregular Heartbeat Neurological History of Neurological Disord: No Reproductive System Hx Reproductive Disorders: No Genitourinary History of Genitourinary Disor: Yes Genitourinary Disorders: Renal Failure, Dialysis Gastrointestinal History of Gastrointestinal Di: No Musculoskeletal History of Musculoskeletal Dis: Yes (LEFT WRIST FRACTURE) Endocrine History of Endocrine Disorders: No HEENT History of HEENT Disorders: No Cancer History of Cancer: No Psychosocial History of Psychiatric Problem: Yes Integumentary History of Skin or Integumenta: No Blood Transfusions History of Blood Disorders: No Adverse Reaction to a Blood Tr: No Reviewed Nursing Assessment Reviewed/Agree w Nursing PMH: Yes Family Medical History Significant Family History: No Pertinent Family Hx Family Medial History: Patient reports no known family medical history. Physical Exam Vital Signs Vital Signs - First Documented 05/29/17 18:20 Temp 98.5 Pulse 75 Resp 24 B/P (MAP) 159/59 (92) Pulse Ox 97 O2 Delivery Room Air Capillary Refill : Less Than 3 Seconds General Appearance: WD/WN, no apparent distress HEENT: PERRL/EOMI, pharynx normal, other (moderate bilateral nasal congestion with erythema and clear rhinorrhea) Neck: full range of motion, supple Respiratory: no respiratory distress, crackles (Right base) Cardiovascular: regular rate, rhythm, no murmur Gastrointestinal: non tender, soft Extremities: non-tender, normal inspection Neurologic/Psychiatric: alert, oriented x 3 Skin: normal color, warm/dry Focused Exam Evaluation Lactate Level Laboratory Tests 05/29/17 21:20: Lactic Acid Level 0.85 Lactic Acid Level Laboratory Tests Test 05/29/17 21:20 Lactic Acid Level 0.85 MMOL/L (0.50-2.00) Progress/Results/Core Measures Suspected Sepsis Recent Fever Within 48 Hours: Yes Infection Criteria Present: Suspected New Infection New/Unexplained Altered Menta: No Sepsis Screen: Possible Sepsis Risk Sepsis Diagnosis: SIRS Temperature:98.5 Pulse: 75 Respiratory Rate: 24 Laboratory Tests 05/29/17 20:52: White Blood Count 8.3 Blood Pressure 159 /59 Mean: 92 Laboratory Tests 05/29/17 21:20: Lactic Acid Level 0.85 Laboratory Tests 05/29/17 20:52: Creatinine 3.48H, INR Comment 1.0, Platelet Count 190, Total Bilirubin 0.4 Results/Orders Lab Results Laboratory Tests Test 05/29/17 20:52 05/29/17 21:20 Range/Units White Blood Count 8.3 4.3-11.0 10^3/uL Red Blood Count 3.76 L 4.35-5.85 10^6/uL Hemoglobin 11.8 11.5-16.0 G/DL Hematocrit 35 35-52 % Mean Corpuscular Volume 94 80-99 FL Mean Corpuscular Hemoglobin 31 25-34 PG Mean Corpuscular Hemoglobin Concent 33 32-36 G/DL Red Cell Distribution Width 14.9 H 10.0-14.5 % Platelet Count 190 130-400 10^3/uL Mean Platelet Volume 11.1 H 7.4-10.4 FL Neutrophils (%) (Auto) 81 H 42-75 % Lymphocytes (%) (Auto) 8 L 12-44 % Monocytes (%) (Auto) 8 0-12 % Eosinophils (%) (Auto) 3 0-10 % Basophils (%) (Auto) 0 0-10 % Neutrophils # (Auto) 6.7 1.8-7.8 X 10^3 Lymphocytes # (Auto) 0.7 L 1.0-4.0 X 10^3 Monocytes # (Auto) 0.7 0.0-1.0 X 10^3 Eosinophils # (Auto) 0.2 0.0-0.3 10^3/uL Basophils # (Auto) 0.0 0.0-0.1 10^3/uL Prothrombin Time 13.1 12.2-14.7 SEC INR Comment 1.0 0.8-1.4 Activated Partial Thromboplast Time 89 H 24-35 SEC Sodium Level 135 135-145 MMOL/L Potassium Level 4.4 3.6-5.0 MMOL/L Chloride Level 97 L 98-107 MMOL/L Carbon Dioxide Level 24 21-32 MMOL/L Anion Gap 14 5-14 MMOL/L Blood Urea Nitrogen 23 H 7-18 MG/DL Creatinine 3.48 H 0.60-1.30 MG/DL Estimat Glomerular Filtration Rate 13 BUN/Creatinine Ratio 7 Glucose Level 91 70-105 MG/DL Calcium Level 8.5 8.5-10.1 MG/DL Total Bilirubin 0.4 0.1-1.0 MG/DL Aspartate Amino Transf (AST/SGOT) 23 5-34 U/L Alanine Aminotransferase (ALT/SGPT) 18 0-55 U/L Alkaline Phosphatase 75 40-136 U/L C-Reactive Protein High Sensitivity 2.39 H 0.00-0.50 MG/DL Total Protein 6.8 6.4-8.2 GM/DL Albumin 3.9 3.2-4.5 GM/DL Lactic Acid Level 0.85 0.50-2.00 MMOL/L My Orders Orders - SANDRA MASON MD Cbc With Automated Diff (05/29/17 20:27) Comprehensive Metabolic Panel (05/29/17 20:27) Lactic Acid Analyzer (05/29/17 20:27) Blood Culture (05/29/17 20:27) Sputum Culture (05/29/17 20:27) Ua Culture If Indicated (05/29/17 20:27) Protime With Inr (05/29/17 20:27) Partial Thromboplastin Time (05/29/17 20:27) Chest 1 View, Ap/Pa Only (05/29/17 20:27) Saline Lock/Iv-Start (05/29/17 20:27) Vital Signs Adult Sepsis Patie Q1H (05/29/17 20:27) Remove Rings In Anticipation O (05/29/17 20:27) Hs C Reactive Protein (05/29/17 20:27) Cefdinir Capsule (Omnicef Capsule) (05/29/17 23:00) Vital Signs/I&O Vital Sign - Last 12Hours 05/29/17 18:20 Temp 98.5 Pulse 75 Resp 24 B/P (MAP) 159/59 (92) Pulse Ox 97 O2 Delivery Room Air Capillary Refill : Less Than 3 Seconds Blood Pressure Mean: 92 Progress Note : Progress Note Seen and evaluated. IV, labs, chest x-ray, blood cultures and lactic acid ordered. Monitor patient. 2249: No moves negative findings for pneumonia and this may just represent sinusitis. We will initiate Omnicef 4 total doses on the day of dialysis with first dose now. Discharged home with return precautions. Patient and family verbalize understanding instructions and agreement with plan. Departure Impression Impression: Primary Impression: Sinusitis Qualified Codes: J01.10 - Acute frontal sinusitis, unspecified Additional Impressions: Bronchitis ESRD on dialysis Disposition: HOME, SELF-CARE Condition: Stable Departure-Patient Inst. Decision time for Depature: 22:55 Referrals: NALLELY SOLIMAN MD (PCP/Family) Primary Care Physician Patient Instructions: Acute Bronchitis, Adult (DC), Sinusitis, Adult (DC) Add. Discharge Instructions: All discharge instructions reviewed with patient and/or family. Voiced understanding. Take medications as directed. You only take antibiotics on the day of dialysis after he had completed her dialysis. You had 3 total doses that you'll take one on Wednesday for dialysis, one on after dialysis and the final one on Wednesday after dialysis. Continue your other medications as previously directed. Return for worse pain, fever, vomiting, weakness, breathing problems or other concerns as needed. Scripts Cefdinir (Cefdinir) 300 Mg Capsule 300 MG PO UD, #3 CAP 0 Refills Take 1 capsule after dialysis on Wed, and Wed Prov: SANDRA MASON MD 05/29/17 SANDRA MASON MD May 29, 2017 20:40
[2017-05-29 21:01] LABS: BASOPHILS % (AUTO) 0 % (0-10); EOSINOPHILS # (AUTO) 0.2 10^3/uL (0.0-0.3); EOSINOPHILS % (AUTO) 3 % (0-10); HEMATOCRIT 35 % (35-52); HEMOGLOBIN 11.8 G/DL (11.5-16.0); LYMPHOCYTES # (AUTO) 0.7 X 10^3 (1.0-4.0); LYMPHOCYTES % (AUTO) 8 % (12-44); MEAN CORPUSCULAR HEMOGLOBIN 31 PG (25-34); MEAN CORPUSCULAR HGB CONC 33 G/DL (32-36); MEAN CORPUSCULAR VOLUME 94 FL (80-99); MEAN PLATELET VOLUME 11.1 FL (7.4-10.4); MONOCYTES # (AUTO) 0.7 X 10^3 (0.0-1.0); MONOCYTES % (AUTO) 8 % (0-12); NEUTROPHILS # (AUTO) 6.7 X 10^3 (1.8-7.8); NEUTROPHILS % (AUTO) 81 % (42-75); PLATELET COUNT 190 10^3/uL (130-400); RED BLOOD COUNT 3.76 10^6/uL (4.35-5.85); RED CELL DISTRIBUTION WIDTH 14.9 % (10.0-14.5); WHITE BLOOD COUNT 8.3 10^3/uL (4.3-11.0)
[2017-05-29 21:10] LABS: PROTHROMBIN TIME PATIENT 13.1 SEC (12.2-14.7)
[2017-05-29 21:18] LABS: POTASSIUM 4.4 MMOL/L (3.6-5.0)
[2017-05-29 21:19] LABS: ALBUMIN 3.9 GM/DL (3.2-4.5); BILIRUBIN,TOTAL 0.4 MG/DL (0.1-1.0); CALCIUM 8.5 MG/DL (8.5-10.1); TOTAL PROTEIN 6.8 GM/DL (6.4-8.2)
--- NOTE | 2017-05-29 21:26 | Diagnostic Imaging Report ---
Clinical indication: Patient reports diagnosed with influenza on . Patient has shortness of air and fever. Exam: Portable chest x-ray, upright view. Comparison: Chest x-ray dated 04/12/2017 and 02/12/2016. Findings: Stable cardiomegaly with no significant pulmonary vascular congestion compared to the recent chest x-ray exam. Stable, roughly 7 mm nodular area overlying the left upper lobe which has stable since 02/12/2016. There are stable increased lung markings throughout both lungs, likely representing chronic lung changes/scarring. There is no definite interval lung infiltrate seen. There is no pleural effusion or pneumothorax. Bones show no significant interval change. Impression: 1: Stable chest x-ray exam with no interval lung infiltrate. 2: Cardiomegaly with no significant pulmonary vascular congestion. 3: Stable 7 mm left upper lobe lung nodule which is stable since 02/12/2016 and may be benign. Chest x-ray in 8-9 months is suggested to evaluate for two years of stability. Dictated by: Dictated on workstation # [id number]
[2017-05-29 21:41] LABS: CREATININE SERUM 3.48 MG/DL (0.60-1.30)
[2017-05-29] MEDS ORDERED: CEFDINIR 300 MG (OMNICEF) CAP PO ONE (23:00)
[2017-05-29] MEDS ORDERED: CEFD300C3 PO (23:00)
[2017-05-29 23:10] VITALS: BP 159/59
== END 2017-05-29 23:10 | disposition home or self-care (01) ==
LOC: EDUNIT# 18:05 → ER 18:06
DX: J32.9 Chronic sinusitis, unspecified (principal); J40 Bronchitis, not specified as acute or chronic; I12.0 Hypertensive chronic kidney disease with stage 5 chronic kidney disease or end stage renal disease; N18.6 End stage renal disease; I48.91 Unspecified atrial fibrillation; E78.00 Pure hypercholesterolemia, unspecified; Z88.8 Allergy status to other drugs, medicaments and biological substances; Z88.0 Allergy status to penicillin; Z88.2 Allergy status to sulfonamides; Z99.2 Dependence on renal dialysis; Z90.89 Acquired absence of other organs; Z04.9 Encounter for examination and observation for unspecified reason; Z90.710 Acquired absence of both cervix and uterus
CPT/HCPCS: 36415; 71045; 80053; 83605; 85025; 85610; 85730; 86141; 87040

== ENCOUNTER 2018-04-13 15:21 | Emergency (ER) | payer MEDICARE, MEDICAID ==
[~2018-04-13] VITALS: Ht 165.1 cm; Wt 59.0 kg
[~2018-04-13 15:21] MED LIST changes: -AMIO200T2 PO; +AMIO200T4 PO; -AMLO5TAB2 PO; +AMLO5TAB7 PO; +CEFD300C3 PO; -ESZO1TAB11; +ESZO1TAB12; -SENN-1 PO; +SENN-145 PO
--- NOTE | 2018-04-13 15:27 | ED General ---
General Stated Complaint: WEAKNESS Source of Information: Patient Exam Limitations: No Limitations History of Present Illness Date Seen by Provider: Apr 13, 2018 Time Seen by Provider: 15:25 Initial Comments To ER per EMS with reports of general weakness for one week. She denies fevers chills cough shortness of breath. She denies vomiting but has been nauseous though she is not nauseous now. She's not had a bowel movement in 1 week which is unusual for her. She has end-stage renal disease on dialysis and receives dialysis on Wednesday, received yesterdays session in full. Primary care is Dr. Soliman. Timing/Duration: 1 Week Severity: Moderate Associated Systoms: Malaise Allergies and Home Medications Allergies Coded Allergies: povidone-iodine (Verified Allergy, Mild, 12/05/16) ranitidine (Verified Allergy, Mild, 12/05/16) soap (Verified Allergy, Mild, 12/05/16) tetracycline (Verified Allergy, Mild, 12/05/16) Penicillins (Verified Allergy, Unknown, 12/05/16) Sulfa (Sulfonamide Antibiotics) (Verified Allergy, Unknown, 12/05/16) Uncoded Allergies: NARCOTIC (Allergy, Mild, 12/01/16) Home Medications Cefdinir 300 Mg Capsule, 300 MG PO UD Take 1 capsule after dialysis on and Wed Prescribed by: SANDRA MASON on 05/29/17 2300 Cinacalcet HCl 90 Mg Tablet, 90 MG PO BID, (Reported) Metoprolol Tartrate 25 Mg Tablet, 25 MG PO DAILY, (Reported) Polyethylene Glycol 3350 17 Gm Powd.pack, 17 GM PO BID Prescribed by: ANDREW SIERRA on 04/13/18 1718 Sevelamer Carbonate 800 Mg Tablet, 1,600 MG PO TIDWM, (Reported) TAKES 2 (800 MG) TABLETS Patient Home Medication List Home Medication List Reviewed: Yes Review of Systems Review of Systems Constitutional: see HPI EENTM: see HPI Respiratory: no symptoms reported Cardiovascular: no symptoms reported Genitourinary: no symptoms reported Musculoskeletal: no symptoms reported Skin: no symptoms reported Psychiatric/Neurological: No Symptoms Reported Hematologic/Lymphatic: No Symptoms Reported Past Nilkkft-Ovwvhd-Dksbyt Hx Patient Social History 2nd Hand Smoke Exposure: No Recent Foreign Travel: No Contact w/Someone Who Travel: No Recent Hopitalizations: No Immunizations Up To Date Tetanus Booster (TDap): Unknown Date of Pneumonia Vaccine: Jan 04, 2012 Date of Influenza Vaccine: Jan 09, 2017 Seasonal Allergies Seasonal Allergies: No Past Medical History Surgeries: Yes (DIALYSIS GRAFT/SHUNT RIGHT UPPER ARM; RIGHT KNEE TUMOR REMOVAL ) Appendectomy, Dialysis, Hysterectomy, Orthopedic, Tonsillectomy, Vascular Surgery Respiratory: No (fluid overload) Currently Using CPAP: No Currently Using BIPAP: No Cardiac: Yes Atrial Fibrillation, Heart Murmur, High Cholesterol, Hypertension, Irregular Heartbeat Neurological: No Reproductive Disorders: No Genitourinary: Yes Renal Failure, Dialysis Gastrointestinal: No Musculoskeletal: Yes (LEFT WRIST FRACTURE) Endocrine: No HEENT: No Cancer: No Psychosocial: Yes Integumentary: No Blood Disorders: No Adverse Reaction/Blood Tranf: No Family Medical History Patient reports no known family medical history. No Pertinent Family Hx Physical Exam Vital Signs Vital Signs - First Documented 04/13/18 15:21 Temp 98.2 Pulse 66 Resp 18 B/P (MAP) 100/70 (80) Pulse Ox 98 O2 Delivery Room Air Capillary Refill : Height, Weight, BMI Height: 5'5.00" Weight: 115lbs. 0.0oz. 52.352284nv; 20.0 BMI Method:Stated General Appearance: No Apparent Distress, Chronically ill, Thin Eyes: Bilateral Eye Normal Inspection, Bilateral Eye PERRL, Bilateral Eye EOMI HEENT: PERRL/EOMI, Normal ENT Inspection Neck: Full Range of Motion, Normal Inspection Respiratory: No Accessory Muscle Use, No Respiratory Distress Cardiovascular: Regular Rate, Rhythm Gastrointestinal: Normal Bowel Sounds, Non Tender, Soft; No Tenderness Extremity: Normal Capillary Refill, Normal Inspection Neurologic/Psychiatric: Alert, Oriented x3 Skin: Normal Color, Warm/Dry Progress/Results/Core Measures Suspected Sepsis SIRS Temperature: Pulse: Respiratory Rate: Laboratory Tests 04/13/18 15:30: White Blood Count 4.7 Blood Pressure / Mean: Laboratory Tests 04/13/18 15:30: Creatinine 4.25H, Platelet Count 169, Total Bilirubin 0.4 Results/Orders Lab Results Laboratory Tests Test 04/13/18 15:30 Range/Units White Blood Count 4.7 4.3-11.0 10^3/uL Red Blood Count 3.35 L 4.35-5.85 10^6/uL Hemoglobin 10.4 L 11.5-16.0 G/DL Hematocrit 32 L 35-52 % Mean Corpuscular Volume 96 80-99 FL Mean Corpuscular Hemoglobin 31 25-34 PG Mean Corpuscular Hemoglobin Concent 32 32-36 G/DL Red Cell Distribution Width 17.7 H 10.0-14.5 % Platelet Count 169 130-400 10^3/uL Mean Platelet Volume 10.8 H 7.4-10.4 FL Neutrophils (%) (Auto) 70 42-75 % Lymphocytes (%) (Auto) 18 12-44 % Monocytes (%) (Auto) 8 0-12 % Eosinophils (%) (Auto) 4 0-10 % Basophils (%) (Auto) 1 0-10 % Neutrophils # (Auto) 3.3 1.8-7.8 X 10^3 Lymphocytes # (Auto) 0.8 L 1.0-4.0 X 10^3 Monocytes # (Auto) 0.4 0.0-1.0 X 10^3 Eosinophils # (Auto) 0.2 0.0-0.3 10^3/uL Basophils # (Auto) 0.0 0.0-0.1 10^3/uL Neutrophils % (Manual) 60 % Lymphocytes % (Manual) 30 % Monocytes % (Manual) 7 % Eosinophils % (Manual) 2 % Basophils % (Manual) 0 % Band Neutrophils 1 % Anisocytosis SLIGHT Sodium Level 140 135-145 MMOL/L Potassium Level 4.5 3.6-5.0 MMOL/L Chloride Level 98 98-107 MMOL/L Carbon Dioxide Level 29 21-32 MMOL/L Anion Gap 13 5-14 MMOL/L Blood Urea Nitrogen 24 H 7-18 MG/DL Creatinine 4.25 H 0.60-1.30 MG/DL Estimat Glomerular Filtration Rate 10 BUN/Creatinine Ratio 6 Glucose Level 81 70-105 MG/DL Calcium Level 8.5 8.5-10.1 MG/DL Corrected Calcium 8.8 8.5-10.1 MG/DL Total Bilirubin 0.4 0.1-1.0 MG/DL Aspartate Amino Transf (AST/SGOT) 25 5-34 U/L Alanine Aminotransferase (ALT/SGPT) 17 0-55 U/L Alkaline Phosphatase 63 40-136 U/L Troponin I < 0.028 <0.028 NG/ML Total Protein 5.8 L 6.4-8.2 GM/DL Albumin 3.6 3.2-4.5 GM/DL Thyroid Stimulating Hormone (TSH) 3.17 0.35-4.94 UIU/ML Free Thyroxine 0.92 0.70-1.48 NG/DL Micro Results Microbiology 04/13/18 Influenza Types A,B Antigen (PADMINI) - Final, Complete My Orders Orders - ANDREW SIERRA APRN Cbc And Manual Diff (04/13/18 15:25) Comprehensive Metabolic Panel (04/13/18 15:25) Ua Culture If Indicated (04/13/18 15:25) Iv Heplock-Insert (Order) (04/13/18 15:25) Chest Pa/Lat (2 View) (04/13/18 15:25) Ct Abdomen/Pelvis Wo (04/13/18 15:25) Ekg Tracing (04/13/18 15:27) Troponin I (04/13/18 15:27) Influenza A And B Antigens (04/13/18 16:08) Blood Culture (04/13/18 16:08) Thyroid Stimulating Hormone (04/13/18 17:12) Free T4 (Free Thyroxine) (04/13/18 17:12) Vital Signs/I&O 04/13/18 04/13/18 15:21 18:00 Temp 98.2 98.2 Pulse 66 68 Resp 18 18 B/P (MAP) 100/70 (80) 146/62 (90) Pulse Ox 98 99 O2 Delivery Room Air Room Air Capillary Refill : Diagnostic Imaging Diagonstic Imaging: CT Comments NAME: DARNELL FRANKLIN MED REC#: [id number] PT STATUS: REG ER : 1940 PHYSICIAN: ANDREW SIERRA APRN ADMIT DATE: 04/13/18/ER Draft Date of Exam:04/13/18 CT ABDOMEN/PELVIS WO PROCEDURE: CT abdomen and pelvis without contrast. TECHNIQUE: Multiple contiguous axial images were obtained through the abdomen and pelvis without the use of intravenous contrast. INDICATION: Constipation. COMPARISON: Comparison is made with prior CT from 03/07/2017. FINDINGS: There is some parenchymal density in the right lung base, similar to the study from 03/07/2017 and appears chronic. No new parenchymal opacity is seen. The heart is enlarged. There is a hiatal hernia present. No discrete liver mass is seen. Gallbladder is unremarkable. No biliary ductal dilatation is identified. The pancreas and spleen are unremarkable apart from multiple splenic granulomas. No adrenal mass is seen. There is renal atrophy bilaterally. Aorta is heavily calcified but nonaneurysmal. Bowel loops appear to be nonobstructive. There is moderate stool in the colon. There is some free fluid in the pelvis. Bladder is decompressed. There is some soft tissue prominence in the left adnexa, similar to prior CT and perhaps representing the left ovary. IMPRESSION: 1. The curvilinear opacity in the right lung base previously described appears similar to examination from 03/07/2017. 2. Hiatal hernia, similar to prior exam. 3. Moderate stool in the colon but no evidence of fecal impaction. No acute feature in the abdomen or pelvis is seen. There is some free fluid present. Soft tissue prominence in the left adnexa is likely the left ovary. This is similar to prior CT but ultrasound could be performed for further characterization, if clinically indicated. Dictated on workstation # [id number] Dict: 04/13/18 1559 Trans: 04/13/18 1609 [id number] Interpreted by: IVETT KOROMA MD Electronically signed by: Departure Communication (Admissions) [id number] with the patient the essentially unremarkable labs. She states that she hasn't fact been quite fatigued for 6 months to a year but it became much worse within the past week. She is not producing any urine for quite a long time, states that she only goes maybe once and sometimes twice per day. We will be unable to obtain urine for analysis here Impression Primary Impression: ESRD on dialysis Additional Impression: General Malaise Disposition: HOME, SELF-CARE Condition: Stable Departure-Patient Inst. Decision time for Depature: 16:54 Referrals: NALLELY SOLIMNA MD (PCP/Family) Primary Care Physician Patient Instructions: Generalized Weakness Add. Discharge Instructions: 1.Fill the laxative tomorrow 2. Return to ER for any concerns 3. Scripts Polyethylene Glycol 3350 (Miralax) 17 Gm Powd.pack 17 GM PO BID, #20 EACH Prov: ANDREW SIERRA CHIEF GREEN OFFICER 04/13/18 ANDREW SIERRA CHIEF GREEN OFFICER Apr 13, 2018 15:27
[2018-04-13 15:37] LABS: BASOPHILS % (AUTO) 1 % (0-10); EOSINOPHILS # (AUTO) 0.2 10^3/uL (0.0-0.3); EOSINOPHILS % (AUTO) 4 % (0-10); HEMATOCRIT 32 % (35-52); HEMOGLOBIN 10.4 G/DL (11.5-16.0); LYMPHOCYTES # (AUTO) 0.8 X 10^3 (1.0-4.0); LYMPHOCYTES % (AUTO) 18 % (12-44); MEAN CORPUSCULAR HEMOGLOBIN 31 PG (25-34); MEAN CORPUSCULAR HGB CONC 32 G/DL (32-36); MEAN CORPUSCULAR VOLUME 96 FL (80-99); MEAN PLATELET VOLUME 10.8 FL (7.4-10.4); MONOCYTES # (AUTO) 0.4 X 10^3 (0.0-1.0); MONOCYTES % (AUTO) 8 % (0-12); NEUTROPHILS # (AUTO) 3.3 X 10^3 (1.8-7.8); NEUTROPHILS % (AUTO) 70 % (42-75); PLATELET COUNT 169 10^3/uL (130-400); RED BLOOD COUNT 3.35 10^6/uL (4.35-5.85); RED CELL DISTRIBUTION WIDTH 17.7 % (10.0-14.5); WHITE BLOOD COUNT 4.7 10^3/uL (4.3-11.0)
[2018-04-13 15:55] LABS: ANISOCYTOSIS SLIGHT; BAND NEUTROPHILS 1 %; BASOPHILS % (MANUAL) 0 %; EOSINOPHILS % (MANUAL) 2 %; LYMPHOCYTES % (MANUAL) 30 %; MONOCYTES % (MANUAL) 7 %; NEUTROPHILS % (MANUAL) 60 %
--- OUTSIDE RECORDS SUMMARY | 2018-04-13 15:55 | XMS REPORT | Clinical Summary ---
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 If you do not see the information that you expected, contact Release of Information in the Health Information Management department at [phone] for further assistance in locating additional records.[facility] Allergies Comments Active Allergy Reactions Severity Noted Date Povidone-Iodine RASH 10/20/2012 Penicillins RASH 10/20/2012 Ranitidine Hcl RASH 10/20/2012 Medications End Date Status Medication Sig Dispensed Refills Start Date Active clomiPRAMINE(+) Take 100 mg 0 (ANAFRANIL) 50 mg capsule by mouth at bedtime daily. Active cinacalcet (SENSIPAR) 90 Take 90 mg by 0 mg mouth daily with breakfast. Active nebivolol (BYSTOLIC) 10 Take 10 mg by 0 mg tablet mouth daily. Active atorvastatin (LIPITOR) 20 Take 20 mg by 0 mg tablet mouth daily. Active aspirin EC 81 mg tablet Take 81 mg by 0 mouth daily. Active Problems Problem Noted Date Hypertension 10/20/2012 Hyperlipidemia 10/20/2012 Pre-transplant evaluation for ESRD (end stage renal disease) 10/20/2012 Bipolar 1 disorder 10/20/2012 OCD (obsessive compulsive disorder) 10/20/2012 GERD (gastroesophageal reflux disease) 10/20/2012 Type 2 diabetes mellitus 10/20/2012 Overview: Diet controlled CVA (cerebral infarction) 10/20/2012 Overview: Subcortical infarct (L) Family History Medical History Relation Name Comments Hypertension Brother Hypertension Brother Coronary Artery Disease Father High Cholesterol Father Hypertension Father Seizures Father High Cholesterol Mother Hypertension Mother Stroke Mother Hypertension Sister Relation Name Status Comments Brother Alive Brother Alive Father Mother Sister Alive Social History Date Tobacco Use Types Packs/Day Years Used Never Smoker Alcohol Use Drinks/Week oz/Week Comments No Sex Assigned at Date Recorded Not on file Industry Job Start Date Occupation Not on file Not on file Not on file Travel End Travel History Travel Start No recent travel history available. Last Filed Vital Signs Time Taken Vital Sign Reading 10/21/2012 8:46 AM CDT Blood Pressure 148/76 10/21/2012 8:46 AM CDT Pulse 84 - Temperature - - Respiratory Rate - - Oxygen Saturation - - Inhaled Oxygen - Concentration 10/21/2012 11:12 AM CDT Weight 54.4 kg (120 lb) 10/21/2012 11:12 AM CDT Height 165.1 cm (5' 5") 10/21/2012 11:12 AM CDT Body Mass Index 19.97 Plan of Treatment Health Maintenance Due Date Last Done Comments PHYSICAL (COMPREHENSIVE) 06/18/1947 EXAM DTAP/TDAP VACCINES (1 - 1958 Tdap) SHINGLES RECOMBINANT 1990 VACCINE (1 of 2) OSTEOPOROSIS 2005 SCREENING/MONITORING PNEUMONIA (PCV13/PPSV23) 2005 VACCINES (1 of 2 - PCV13) INFLUENZA VACCINE 10/27/2017 Results Not on filefrom Last 3 Months Insurance Payer Benefit Subscriber ID Type Phone Address Plan / Group MEDICARE MEDICARE xxxxxxxxxx Medicare PART A AND B MEDICARE MEDIC[place] xxxxxxxxx[place] MED[place] [facility] xxxxxxxxx [place] Dulce Bashir A Transplant Self 1940 [address] [phone] (Work) Advance Directives Patient has advance care planning documents on file. For more information, please contact: [facility] [address] [place] [address]
--- OUTSIDE RECORDS SUMMARY | 2018-04-13 15:55 | XMS REPORT ---
Author Author NALLELY SOLIMAN Organization [facility] [place] Address [address] [place] [address] Care Team Providers Care Pediatric Immunologist Name Role Phone NALLELY SOLIMAN Unavailable PROBLEMS Type Condition ICD9-CM Code PAP67-OR Code Onset Dates Condition Status SNOMED Code Problem Chronic fatigue R53.82 Active 49360488 Problem Recurrent major depressive disorder, in full remission F33.42 Active 856160281 Problem halfway 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 Z79.01 Active 702665060 Problem Cardiomegaly I51.7 Active 9320088 Problem Psychophysiological insomnia F51.04 Active 564035599 Problem Anxiety state, unspecified F41.1 Active 896311751 Problem Moderate episode of recurrent major depressive disorder F33.1 Active 465598800 Problem Constipation, unspecified constipation type K59.00 Active 28323730 Problem Depressive disorder, not elsewhere classified F32.9 Active 07528815 Problem 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 Active 677308 Problem Insomnia, unspecified type G47.00 Active 630379954 Problem Chronic atrial fibrillation I48.2 Active 589774905 Problem Valvular heart disease I38 Active 319471 Problem End stage renal disease N18.6 Active 92387303 Problem Kidney failure N19 Active 70135430 Problem 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 986977762 Problem Hypotension, unspecified hypotension type I95.9 Active 35411625 Problem 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 035264368 ALLERGIES No Information ENCOUNTERS Encounter Location Date Diagnosis [facility] [place] [address] [facility] [id number], [place] [address] Jan, [facility] [place] [address] [facility] [id number], [place] [address] Dec, Medicare annual wellness visit, initial Z00.00 ; 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 ; End stage renal disease N18.6 ; 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.2 ; Moderate episode of recurrent major depressive disorder F33.1 ; Chronic atrial fibrillation I48.2 ; Cardiomegaly I51.7 ; Valvular heart disease I38 and Psychophysiological insomnia F51.04 [facility] [id number] [place] [address] 53761- 4942 Oct, [facility] [id number] [place] [address] 45720- 9917 July, Seasonal allergic rhinitis, unspecified trigger J30.2 [facility] [id number] [place] [address] 63061 -2449 Jun, Wheezes R06.2 ; Seasonal allergic rhinitis, unspecified trigger J30.2 and Diarrhea, unspecified type R19.7 [facility] [id number] [place] [address] 71110- 5502 May, Cough R05 and Shortness of breath R06.02 [facility] [address] [address]- [address] May, Adverse effect of unspecified systemic antibiotic, initial encounter T36.95XA [facility] [id number] [place] [address] 74104- 5760 May, Adverse effect of unspecified systemic antibiotic, initial encounter T36.95XA ; Toxic gastroenteritis and colitis K52.1 and Cough R05 [facility] [id number] [place] [address] 38394- 8209 May, Shortness of breath R06.02 and Cough R05 [facility] [id number] [place] [address] 75103- 4664 May, [facility] [id number] [place] [address] 92588- 7888 May, Cough R05 ; Kidney failure N19 ; Atrial fibrillation, unspecified type I48.91 and Cardiomegaly I51.7 [facility] [id number] [place] [address] 11068- 9443 May, Cough R05 [facility] [address] [address] May, [facility] [address] [id number] Apr, Dental examination Z01.20 [facility] [address], [place] [address] Mar, [facility] [id number] [place] [address] 78774- 9843 Mar, Hemoglobin low D64.9 [facility] [id number] [place] [address] 90136- 8594 Feb, Atrial fibrillation, unspecified type I48.91 ; End stage renal disease N18.6 ; Psychophysiological insomnia F51.04 ; Dark stools R19.5 ; Valvular heart disease I38 and Constipation, unspecified constipation type K59.00 [facility] [id number] [place] [address] 22467- 7206 Feb, 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.2 [facility] [address], [place] [address] 04 Feb, 2017 Depressive disorder, not elsewhere classified F32.9 ; Anxiety state, unspecified F41.1 and Cognitive decline R41.89 [facility] [address], [place] [address] Jan, Depressive disorder, not elsewhere classified F32.9 ; Anxiety state, unspecified F41.1 and Cognitive decline R41.89 [facility] [address], [place] [address] 13 Jan, 2017 Moderate episode of recurrent major depressive disorder F33.1 ; 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.2 and Atrial fibrillation, unspecified type I48.91 [facility] [address], [place] [address] Jan, Depressive disorder, not elsewhere classified F32.9 ; Anxiety state, unspecified F41.1 and Cognitive decline R41.89 [facility] [address] [place] [id number] Dec, End stage renal disease N18.6 and Valvular heart disease I38 [facility] [id number] [place] [address] 76152- 9149 Nov, [facility] [id number] [place] [address] 99672- 8379 Nov, 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 Z79.01 [facility] [address] 22608- 9098 Nov, Recurrent major depressive disorder, in full remission F33.42 ; 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.2 ; Atrial fibrillation, unspecified type I48.91 and Shaking chills R68.83 [facility] [id number] [place] [address] 40447- 1339 Nov, [facility] [address] 20266- 8151 Nov, [facility] [id number] [place] [address] 32555- 6232 Oct, halfway 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 Z79.01 [facility] [id number] [place] [address] 96152- 7084 Oct, 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 Z79.01 [facility] [id number] [place] [address] 72943- 2222 Oct, halfway 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 Z79.01 [facility] [id number] [place] [address] 06243- 4284 Oct, 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 Z79.01 [facility] [id number] [place] [address] 41928- 7413 Oct, halfway 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 Z79.01 [facility] [id number] [place] [address] 45757- 0762 Oct, 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 Z79.01 [facility] [address], [place] [address] 2657 Oct, halfway 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 Z79.01 [facility] [place] [id number] [place] [address] 64503- 2418 Sep, [facility] [place] [id number] [place] [address] 78096- 9124 Sep, 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 Z79.01 [facility] [place] [id number] [place] [address] 76763- 0354 Sep, 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 Z79.01 [facility] [place] [id number] [place] [address] 30493- 2243 Sep, 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 Z79.01 [facility] [id number] [place] [address] 37502- 1496 Sep, 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 Z79.01 [facility] [place] [id number] [place] [address] 94790- 0723 Sep, halfway 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 Z79.01 [facility] [place] [address] [place] [address] 38326- 1948 Sep, halfway 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 Z79.01 [facility] [place] [address], [place] [address] Aug, 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 Z79.01 [facility] [place] [address] [place] [address] 42671- 4954 Aug, 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 Z79.01 [facility] [place] [id number] [place] [address] 65235- 7576 Aug, 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 Z79.01 [facility] [place] [address] [place] [address] 81374- 8775 July, [facility] [place] [id number] [place] [address] 31898- 0812 July, 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 Z79.01 [facility] [place] [address] [place] [address] 559088- 3696 July, halfway 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 Z79.01 [facility] [place] [address] [place] [address] 93914- 1356 July, halfway 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 Z79.01 [facility] [place] [id number] [place] [address] 23624- 7582 July, 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 Z79.01 [facility] [place] [id number] [place] [address] 20896- 6005 July, [facility] [place] [id number] [place] [address] 73772- 8406 July, halfway 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 Z79.01 [facility] [place] [id number] [place] [address] 86478- 3770 July, [facility] [place] [id number] [place] [address] 67129- 3053 July, 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 Z79.01 [facility] [place] [address] [place] [address] 94796- 3442 Jun, halfway 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 Z79.01 [facility] [address] [place] [address] 13727- 2756 Jun, 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 Z79.01 [facility] [place] [id number] [place] [address] 30074- 2549 Jun, halfway 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 Z79.01 [facility] [place] [id number] [place] [address] 65314- 2546 Jun, 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 Z79.01 [facility] [place] [address], [place] [address] 3316 Jun, Fatigue, unspecified type R53.83 and Non-intractable vomiting with nausea, unspecified vomiting type R11.2 [facility] [id number] [place] [address] 26080- 6562 Jun, halfway 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 Z79.01 and Non- intractable vomiting with nausea, unspecified vomiting type R11.2 [facility] [id number] [place] [address] 29340- 5086 May, halfway 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 Z79.01 [facility] [id number] [place] [address] 37114- 3906 May, 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 Z79.01 [facility] [address] 10430- 7826 May, [facility] [address] 99431- 4902 May, 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 Z79.01 [facility] [address] 37646- 7158 May, halfway 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 Z79.01 [facility] [address] 15033- 9702 May, Fall, initial encounter W19.XXXA ; Toe pain, right M79.674 and Dizziness R42 [facility] [id number] [place] [address] 37072- 7213 May, halfway 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 Z79.01 [facility] [id number] [place] [address] 19437- 0042 May, halfway 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 Z79.01 [facility] [id number] [place] [address] 16290- 3795 May, 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 Z79.01 [facility] [id number] [place] [address] 95163- 6476 Apr, [facility] [id number] [place] [address] 36750- 8311 Apr, halfway 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 Z79.01 [facility] [id number] [place] [address] 89904- 3410 Apr, 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 Z79.01 [facility] [id number] [place] [address] 03164- 2216 Apr, 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 Z79.01 ; Hemodialysis -associated hypotension I95.3 ; Varicose veins of left lower extremity I83.92 and Advance directive discussed with patient Z71.89 [facility] [id number] [place] [address] 19936- 4544 Mar, [facility] [id number] [place] [address] 75141- 2885 Mar, 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 Z79.01 [facility] [id number] [place] [address] 24164- 7402 Mar, 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 Z79.01 [facility] [id number] [place] [address] 60670- 3956 Mar, [facility] [id number] [place] [address] 58384- 0060 Mar, halfway 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 Z79.01 and Encounter for therapeutic drug level monitoring Z51.81 [facility] [id number] [place] [address] 80017- 5112 Mar, Atrial fibrillation, unspecified type I48.91 [facility] [id number] [place] [address] 33326- 5163 Feb, Atrial fibrillation, unspecified type I48.91 [facility] [id number] [place] [address] 13523- 4202 Feb, Atrial fibrillation, unspecified type I48.91 [facility] [id number] [place] [address] 78226- 4006 Feb, Chronic anticoagulation Z79.01 ; Chronic fatigue R53.82 ; Hemodialysis-associated hypotension I95.3 ; 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.2 and End stage renal disease N18.6 [facility] [place] [address], [place] [address] 8119 Feb, [facility] [place] [id number] [place] [address] 32496- 1592 Feb, Atrial fibrillation, unspecified type I48.91 [facility] [place] [id number] [place] [address] 03997- 6597 Feb, [facility] [place] [id number] [place] [address] 58603- 7746 Jan, Atrial fibrillation, unspecified type I48.91 [facility] [place] [id number] [place] [address] 12215- 6564 Jan, Atrial fibrillation, unspecified type I48.91 [facility] [place] [address] [place] [address] 39731- 3216 Jan, Atrial fibrillation, unspecified type I48.91 ; Insomnia, unspecified type G47.00 ; End stage renal disease N18.6 and Valvular heart disease I38 [facility] [place] [address] [place] [address] 60816- 3035 Jan, [facility] [place] [id number] [place] [address] 91155- 3334 Jan, Atrial fibrillation, unspecified type I48.91 [facility] [place] [address], [place] [address]- 5316 Jan, [facility] [place] [id number] [place] [address] 11037- 3221 08 Jan, 2016 [facility] [place] [id number] [place] [address] 00375- 6003 Dec, [facility] [place] [id number] [place] [address] 41486- 6181 Nov, Hypotension, unspecified hypotension type I95.9 ; Systolic ejection murmur I38 and Insomnia, unspecified type G47.00 [facility] [place] [address], [place] [address] Oct, [facility] [place] [address], [place] [address]- 7151 Oct, [facility] [place] [address], [place] [address]- 0641 Aug, Screening for diabetes mellitus Z13.1 ; 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 and Systolic ejection murmur I38 [facility] [address], [place] [address]- 4696 July, Cough R05 IMMUNIZATIONS No Known Immunizations SOCIAL HISTORY Never Assessed REASON FOR VISIT Requests return call PLAN OF CARE VITAL SIGNS MEDICATIONS Unknown Medications RESULTS No Results PROCEDURES No Known procedures INSTRUCTIONS MEDICATIONS ADMINISTERED No Known Medications MEDICAL (GENERAL) HISTORY Type Description Date Medical History Decreased Kidney Function Medical History Hypertension Medical History Hyperlipidemia Medical History 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 project manager use of coumadin Medical History Dialysis Surgical History tonsillectomy and adenoidectomy Surgical History appendectomy Surgical History Partial Hysterectomy Surgical History left knee replacement Hospitalization History Chest Tube-[facility] 03/2015 Hospitalization History Fluid on lungs-[facility] Hospitalization History ER -shunt malfunction 10/2016 Hospitalization History ER 12/01/2016 Hospitalization History Broken left arm and fractured pelvis 12/2016 Hospitalization History back pain - [facility] ED visit [facility] 03/07/17 Hospitalization History [facility]- [place]- SOA, Fluid Overload 04/12/17 Hospitalization History [facility]- [place]- Bleeding/Needs stitches 04/20/2017 Hospitalization History [facility] - Shortness of breath 05/29/17
--- OUTSIDE RECORDS SUMMARY | 2018-04-13 15:56 | XMS REPORT ---
Author Author NALLELY SOLIMAN [facility] Address [address] [place] [address] Care Team Providers Care Sander Hand Name Role Phone NALLELY SOLIMAN Unavailable PROBLEMS Type Condition ICD9-CM Code JDB38-OE Code Onset Dates Condition Status SNOMED Code Problem Chronic fatigue R53.82 Active 73049561 Problem Recurrent major depressive disorder, in full remission F33.42 Active 808167342 Problem group home 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 Z79.01 Active 754514060 Problem Cardiomegaly I51.7 Active 8860020 Problem Psychophysiological insomnia F51.04 Active 083222162 Problem Anxiety state, unspecified F41.1 Active 005104665 Problem Moderate episode of recurrent major depressive disorder F33.1 Active 368222725 Problem Constipation, unspecified constipation type K59.00 Active 15586845 Problem Depressive disorder, not elsewhere classified F32.9 Active 95446754 Problem 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 Active 859299 Problem Insomnia, unspecified type G47.00 Active 046437139 Problem Chronic atrial fibrillation I48.2 Active 649649799 Problem Valvular heart disease I38 Active 509255 Problem End stage renal disease N18.6 Active 00938796 Problem Kidney failure N19 Active 91742731 Problem 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 855483268 Problem Hypotension, unspecified hypotension type I95.9 Active 01516785 Problem 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 075012866 ALLERGIES No Information ENCOUNTERS Encounter Location Date Diagnosis [facility] [address] [id number] [address] Dec, [facility] [address] [id number] [address] Oct, [facility] [address] [id number], [place] [address] July, Seasonal allergic rhinitis, unspecified trigger J30.2 [facility] [address] [place] [address] Jun, Wheezes R06.2 ; Seasonal allergic rhinitis, unspecified trigger J30.2 and Diarrhea, unspecified type R19.7 [facility] [id number] [place] [address] 82343- 2513 May, Cough R05 and Shortness of breath R06.02 [place] [address] [address] May, Adverse effect of unspecified systemic antibiotic, initial encounter T36.95XA [place] [address] [address] 15 May, 2017 Adverse effect of unspecified systemic antibiotic, initial encounter T36.95XA ; Toxic gastroenteritis and colitis K52.1 and Cough R05 [place] [address] [address]- [address]4 May, Shortness of breath R06.02 and Cough R05 [facility] [address] [address] May, [place] [address] [address] May, Cough R05 ; Kidney failure N19 ; Atrial fibrillation, unspecified type I48.91 and Cardiomegaly I51.7 [facility] [id number] [place] [address] 81847- 9263 May, Cough R05 [facility] [id number] [place] [address] 22578- 6968 May, [facility] [address] [id number] Apr, Dental examination Z01.20 [facility] [id number] [place] [address] 27332- 6287 Mar, [facility] [address] [address]- 1261 Mar, Hemoglobin low D64.9 [place] [id number] [place] [address] 65820- 7358 Feb, Atrial fibrillation, unspecified type I48.91 ; End stage renal disease N18.6 ; Psychophysiological insomnia F51.04 ; Dark stools R19.5 ; Valvular heart disease I38 and Constipation, unspecified constipation type K59.00 [place] [id number] [place] [address] 34537- 4468 Feb, 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.2 [place] [id number] [place] [address] 13657- 4418 Feb, Depressive disorder, not elsewhere classified F32.9 ; Anxiety state, unspecified F41.1 and Cognitive decline R41.89 [place] [id number] [place] [address] 38073- 4747 Jan, Depressive disorder, not elsewhere classified F32.9 ; Anxiety state, unspecified F41.1 and Cognitive decline R41.89 [place] [id number] [place] [address] 35148- 8145 Jan, Moderate episode of recurrent major depressive disorder F33.1 ; 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.2 and Atrial fibrillation, unspecified type I48.91 [place] [address] [place] [address] 16865- 0240 Jan, Depressive disorder, not elsewhere classified F32.9 ; Anxiety state, unspecified F41.1 and Cognitive decline R41.89 [facility] [address] [place] [id number] Dec, End stage renal disease N18.6 and Valvular heart disease I38 [place] [id number] [place] [address] 44860- 1026 Nov, [place] [address] [place] [address] 85616- 3262 Nov, 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 [place] [id number] [place] [address] 26135- 2971 07 Nov, 2016 Recurrent major depressive disorder, in full remission F33.42 ; 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.2 ; Atrial fibrillation, unspecified type I48.91 and Shaking chills R68.83 [place] [id number] [place] [address] 94467- 2842 Nov, [place] [address] 32598- 2615 Nov, [place] [id number] [place] [address] 98846- 0879 Oct, group home 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 Z79.01 [place] [id number] [place] [address] 60213- 7257 Oct, 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 [place] [address] 65730- 7183 Oct, group home 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 Z79.01 [place] [id number] [place] [address] 58641- 7179 Oct, group home 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 Z79.01 [place] [id number] [place] [address] 93541- 4453 Oct, 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 [place] [id number] [place] [address] 45343- 7947 Oct, group home 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 Z79.01 [place] [id number] [place] [address] 12746- 3527 Oct, 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 [place] [id number] [place] [address] 19377- 0367 Sep, [place] [id number] [place] [address] 25308- 9348 Sep, 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 [facility] [address], [place] [address] Sep, 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 [facility] [address] [place] [address] 23719 2546 Sep, 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 [facility] [address] [place] [address] 93805- 5896 Sep, group home 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 Z79.01 [facility] [address] [place] [address] 28045 2546 Sep, 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 [facility] [address] [place] [address] 20815- 6796 Sep, group home 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 Z79.01 [place] [address] [place] [address] 72697- 8406 Aug, group home 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 Z79.01 [facility] [address] [address] 2542 Aug, 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 [facility] [address], [place] [address] Aug, 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 [place] [address] [address] July, [facility] [address] [place] [address] 59004 2546 July, group home 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 Z79.01 [facility] [address] [place] [address] 02909 2546 July, 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 [facility] [address] [address] 2546 July, 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 [place] [id number] [place] [address] 56593- 1060 July, group home 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 Z79.01 [place] [id number] [place] [address] 77104- 1600 July, [place] [id number] [place] [address] 68075- 8263 July, 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 [place] [id number] [place] [address] 54777- 8789 July, [place] [id number] [place] [address] 04036- 5374 July, group home 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 Z79.01 [place] [id number] [place] [address] 41189- 2301 Jun, 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 [place] [id number] [place] [address] 43632- 6855 Jun, 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 [place] [id number] [place] [address] 19001- 9253 Jun, group home 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 Z79.01 [place] [id number] [place] [address] 25026- 6873 Jun, 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 [place] [id number] [place] [address] 12938- 7510 Jun, Fatigue, unspecified type R53.83 and Non-intractable vomiting with nausea, unspecified vomiting type R11.2 [place] [id number] [place] [address] 89936- 7531 Jun, group home 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 Z79.01 and Non- intractable vomiting with nausea, unspecified vomiting type R11.2 [place] [id number] [place] [address] 35457- 4634 May, group home 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 Z79.01 [facility] [id number] [place] [address] 87508- 1800 May, group home 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 Z79.01 [facility] [id number] [place] [address] 25613- 7314 May, [place] [address] 31706- 4309 May, group home 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 Z79.01 [place] [id number] [place] [address] 97512- 5193 May, group home 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 Z79.01 [place] [address] 04362- 7455 May, Fall, initial encounter W19.XXXA ; Toe pain, right M79.674 and Dizziness R42 [place] [id number] [place] [address] 66099- 3367 May, 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 [place] [id number] [place] [address] 97780- 3153 May, group home 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 Z79.01 [place] [id number] [place] [address] 51305- 9686 May, group home 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 Z79.01 [place] [id number] [place] [address] 00276- 7967 Apr, [place] [id number] [place] [address] 57266- 0523 Apr, 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 [place] [id number] [place] [address] 87209- 7794 Apr, 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 [place] [id number] [place] [address] 52966- 4699 Apr, group home 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 Z79.01 ; Hemodialysis -associated hypotension I95.3 ; Varicose veins of left lower extremity I83.92 and Advance directive discussed with patient Z71.89 [place] [address] [place] [address] 89525- 8184 Mar, [place] [id number] [place] [address] 84877- 4786 Mar, 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 [place] [id number] [place] [address] 42897- 4529 Mar, 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 [place] [id number] [place] [address] 99631- 4927 Mar, [place] [id number] [place] [address] 30921- 2816 Mar, 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 and Encounter for therapeutic drug level monitoring Z51.81 [place] [id number] [place] [address] 27306- 8311 Mar, Atrial fibrillation, unspecified type I48.91 [place] [id number] [place] [address] 33511- 1018 Feb, Atrial fibrillation, unspecified type I48.91 [place] [id number] [place] [address] 21087- 5598 Feb, Atrial fibrillation, unspecified type I48.91 [place] [id number] [place] [address] 44444- 5099 Feb, Chronic anticoagulation Z79.01 ; Chronic fatigue R53.82 ; Hemodialysis-associated hypotension I95.3 ; 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.2 and End stage renal disease N18.6 [place] [address] [address]- 1434 Feb, [place] [id number] [place] [address] 72014- 4094 Feb, Atrial fibrillation, unspecified type I48.91 [facility] [id number] [place] [address] 01788- 2206 Feb, [facility] [id number] [place] [address] 39732- 3555 Jan, Atrial fibrillation, unspecified type I48.91 [facility] [id number] [place] [address] 90944- 5398 Jan, Atrial fibrillation, unspecified type I48.91 [facility] [id number] [place] [address] 18349- 5779 Jan, Atrial fibrillation, unspecified type I48.91 ; Insomnia, unspecified type G47.00 ; End stage renal disease N18.6 and Valvular heart disease I38 [place] [id number] [place] [address] 17704- 7850 Jan, [facility] [id number] [place] [address] 66450- 6474 Jan, Atrial fibrillation, unspecified type I48.91 [facility] [id number] [place] [address] 99675- 6798 Jan, [facility] [id number] [place] [address] 09400- 0042 Jan, [facility] [id number] [place] [address] 33935- 8710 Dec, [facility] [id number] [place] [address] 92345- 4253 Nov, Hypotension, unspecified hypotension type I95.9 ; Systolic ejection murmur I38 and Insomnia, unspecified type G47.00 [facility] [id number] [place] [address] 98826- 7277 Oct, [facility] [id number] [place] [address] 98694- 5754 Oct, [facility] [address] [id number] [place] [address]- 7532 07 Aug, 2015 Screening for diabetes mellitus Z13.1 ; 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 and Systolic ejection murmur I38 [facility] [address] [id number] [place] [address]- 3560 July, Cough R05 IMMUNIZATIONS No Known Immunizations SOCIAL HISTORY Never Assessed REASON FOR VISIT Eye exam PLAN OF CARE VITAL SIGNS MEDICATIONS Unknown [...] [facility] 03/2015 Hospitalization History Fluid on lungs-[facility] Hospitalization History ER -shunt malfunction 10/2016 Hospitalization History ER 12/01/2016 Hospitalization History Broken left arm and fractured pelvis 12/2016 Hospitalization History back pain - [facility] ED visit [facility] 03/07/17 Hospitalization History [facility], Fluid Overload 04/12/17 Hospitalization History [facility] [place]- Bleeding/Needs stitches 04/20/2017 [facility]ization History [facility] - Shortness of breath 05/29/17
--- OUTSIDE RECORDS SUMMARY | 2018-04-13 15:56 | XMS REPORT ---
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 Active 577744530 Problem Cardiomegaly I51.7 Active 6492028 Problem Psychophysiological insomnia F51.04 Active 207096773 Problem Anxiety state, unspecified F41.1 Active 896774010 Problem Moderate episode of recurrent major depressive disorder F33.1 Active 945473225 Problem Constipation, unspecified constipation type K59.00 Active 72199965 Problem Depressive disorder, not elsewhere classified F32.9 Active 95640976 Problem 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 Active 330859 Problem Insomnia, unspecified type G47.00 Active 924711359 Problem Chronic atrial fibrillation I48.2 Active 164605922 Problem Valvular heart disease I38 Active 060265 Problem End stage renal disease N18.6 Active 69405603 Problem Kidney failure N19 Active 37486324 Problem 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 345312895 Problem Hypotension, unspecified hypotension type I95.9 Active 93070926 Problem 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 176678440 ALLERGIES No Information ENCOUNTERS Encounter Location Date Diagnosis [facility] [address] [facility] [id number] [address] Dec, [facility] [address] [id number] [address] Oct, [facility] [address] [facility] [id number] [address] July, Seasonal allergic rhinitis, unspecified trigger J30.2 [facility] [address] [place] [address] Jun, Wheezes R06.2 ; Seasonal allergic rhinitis, unspecified trigger J30.2 and Diarrhea, unspecified type R19.7 [facility] [id number] [place] [address] 73027- 8439 May, Cough R05 and Shortness of breath R06.02 [place] [address] [address] May, Adverse effect of unspecified systemic antibiotic, initial encounter T36.95XA [place] [address] [address]- [address] 15 May, 2017 Adverse effect of unspecified systemic antibiotic, initial encounter T36.95XA ; Toxic gastroenteritis and colitis K52.1 and Cough R05 [place] [address] [address]- [address] May, Shortness of breath R06.02 and Cough R05 [facility] [address] [address] May, [place] [address] [address]- [address] May, Cough R05 ; Kidney failure N19 ; Atrial fibrillation, unspecified type I48.91 and Cardiomegaly I51.7 [facility] [id number] [place] [address] 72598- 0220 May, Cough R05 [facility] [id number] [place] [address] 05245- 7342 May, [facility] [address] [id number] Apr, Dental examination Z01.20 [facility] [id number] [place] [address] 63498- 2159 Mar, [facility] [address] 05694- 4329 Mar, Hemoglobin low D64.9 [place] [id number] [place] [address] 54065- 4839 Feb, Atrial fibrillation, unspecified type I48.91 ; End stage renal disease N18.6 ; Psychophysiological insomnia F51.04 ; Dark stools R19.5 ; Valvular heart disease I38 and Constipation, unspecified constipation type K59.00 [place] [id number] [place] [address] 76065- 8134 Feb, 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.2 [place] [id number] [place] [address] 83208- 1031 Feb, Depressive disorder, not elsewhere classified F32.9 ; Anxiety state, unspecified F41.1 and Cognitive decline R41.89 [place] [id number] [place] [address] 44463- 0362 Jan, Depressive disorder, not elsewhere classified F32.9 ; Anxiety state, unspecified F41.1 and Cognitive decline R41.89 [place] [id number] [place] [address] 75877- 3557 Jan, Moderate episode of recurrent major depressive disorder F33.1 ; 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.2 and Atrial fibrillation, unspecified type I48.91 [place] [address] [place] [address] 27752- 6042 Jan, Depressive disorder, not elsewhere classified F32.9 ; Anxiety state, unspecified F41.1 and Cognitive decline R41.89 [facility] [address] [place] [id number] Dec, End stage renal disease N18.6 and Valvular heart disease I38 [place] [id number] [place] [address] 48208- 6055 Nov, [place] [address] [place] [address] 12334- 5209 Nov, 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 [place] [id number] [place] [address] 64500- 3429 07 Nov, 2016 Recurrent major depressive disorder, in full remission F33.42 ; 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.2 ; Atrial fibrillation, unspecified type I48.91 and Shaking chills R68.83 [place] [id number] [place] [address] 34220- 6064 Nov, [place] [address] 26497- [address]35 Nov, [place] [id number] [place] [address] 92816- 3822 Oct, 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 [place] [id number] [place] [address] 87092- 2635 Oct, 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 [place] [address] 72327- 9060 Oct, 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 [place] [id number] [place] [address] 65809- 0391 Oct, retirement 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 Z79.01 [place] [id number] [place] [address] 08441- 6323 Oct, 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 [place] [id number] [place] [address] 53131- 5124 Oct, retirement 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 Z79.01 [place] [id number] [place] [address] 79328- 2788 Oct, 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 [place] [id number] [place] [address] 49394- 1469 Sep, [place] [id number] [place] [address] 04076- 3777 Sep, retirement 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 Z79.01 [facility] [address] [address] Sep, 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 [facility] [address] [place] [address] 90273 2546 Sep, 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 [facility] [address] [place] [address] 41759- 6026 Sep, 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 [facility] [address] [place] [address] 48827 2546 Sep, 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 [facility] [address] [place] [address] 90274- 8056 Sep, 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 [place] [address] [place] [address] 11379- 4906 Aug, 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 [facility] [address] [address] 2548 Aug, retirement 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 Z79.01 [facility] [address] [address] Aug, retirement 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 Z79.01 [place] [address] [address] July, [facility] [address] [place] [address] 37507 2546 July, retirement 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 Z79.01 [facility] [address] [place] [address] 80454 2546 July, retirement 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 Z79.01 [facility] [address] [address] 2546 July, retirement 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 Z79.01 [place] [id number] [place] [address] 15852- 9209 July, 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 [place] [id number] [place] [address] 37986- 0389 July, [place] [id number] [place] [address] 03484- 4067 July, 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 [place] [id number] [place] [address] 26838- 7081 July, [place] [id number] [place] [address] 12022- 7605 July, 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 [place] [id number] [place] [address] 76084- 3726 Jun, 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 [place] [id number] [place] [address] 51180- 1605 Jun, 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 [place] [id number] [place] [address] 84355- 2971 Jun, 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 [place] [id number] [place] [address] 61984- 9366 Jun, retirement 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 Z79.01 [place] [id number] [place] [address] 33534- 2295 Jun, Fatigue, unspecified type R53.83 and Non-intractable vomiting with nausea, unspecified vomiting type R11.2 [place] [id number] [place] [address] 87011- 6752 Jun, retirement 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 Z79.01 and Non- intractable vomiting with nausea, unspecified vomiting type R11.2 [place] [id number] [place] [address] 36757- 3864 May, retirement 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 Z79.01 [facility] [id number] [place] [address] 53262- 9170 May, retirement 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 Z79.01 [facility] [id number] [place] [address] 88912- 8193 May, [place] [address] 21175- 1215 May, 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 [place] [id number] [place] [address] 46802- 0168 May, 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 [place] [address] 06451- 8801 May, Fall, initial encounter W19.XXXA ; Toe pain, right M79.674 and Dizziness R42 [place] [id number] [place] [address] 66239- 1891 May, 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 [place] [id number] [place] [address] 96824- 3427 May, 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 [place] [id number] [place] [address] 00946- 8346 May, retirement 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 Z79.01 [place] [id number] [place] [address] 27474- 4009 Apr, [place] [id number] [place] [address] 85105- 2926 Apr, 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 [place] [id number] [place] [address] 33346- 7105 Apr, 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 [place] [id number] [place] [address] 11812- 5322 Apr, retirement 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 Z79.01 ; Hemodialysis -associated hypotension I95.3 ; Varicose veins of left lower extremity I83.92 and Advance directive discussed with patient Z71.89 [place] [address] [place] [address] 20457- 2137 Mar, [place] [id number] [place] [address] 84720- 1351 Mar, 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91 [place] [id number] [place] [address] 47864- 8692 Feb, Atrial fibrillation, unspecified type I48.91 [place] [id number] [place] [address] 79374- 1390 Feb, Atrial fibrillation, unspecified type I48.91 [place] [id number] [place] [address] 34870- 7604 Feb, Chronic anticoagulation Z79.01 ; Chronic fatigue R53.82 ; Hemodialysis-associated hypotension I95.3 ; 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.2 and End stage renal disease N18.6 [place] [address] [address]- 3752 Feb, [place] [id number] [place] [address] 71313- 8222 Feb, Atrial fibrillation, unspecified type I48.91 [facility] [id number] [place] [address] 00042- 1192 Feb, [facility] [id number] [place] [address] 69062- 0853 Jan, Atrial fibrillation, unspecified type I48.91 [facility] [id number] [place] [address] 06039- 8863 Jan, Atrial fibrillation, unspecified type I48.91 [facility] [id number] [place] [address] 97222- 7221 Jan, Atrial fibrillation, unspecified type I48.91 ; Insomnia, unspecified type G47.00 ; End stage renal disease N18.6 and Valvular heart disease I38 [place] [id number] [place] [address] 02954- 9722 Jan, [facility] [id number] [place] [address] 48875- 2179 Jan, Atrial fibrillation, unspecified type I48.91 [facility] [id number] [place] [address] 89347- 8972 Jan, [facility] [id number] [place] [address] 98548- 5894 Jan, [facility] [id number] [place] [address] 10620- 7139 Dec, [facility] [id number] [place] [address] 03249- 5209 Nov, Hypotension, unspecified hypotension type I95.9 ; Systolic ejection murmur I38 and Insomnia, unspecified type G47.00 [facility] [id number] [place] [address] 66259- 0984 Oct, [facility] [id number] [place] [address] 40450- 3843 Oct, [facility] [address] [facility] [id number] [place] [address]- 9422 07 Aug, 2015 Screening for diabetes mellitus Z13.1 ; 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 and Systolic ejection murmur I38 [facility] [address] [facility] [id number] [place] [address]- 3119 July, Cough R05 IMMUNIZATIONS No Known Immunizations SOCIAL HISTORY Never Assessed REASON FOR VISIT PA Admission PLAN OF CARE Activity Details Follow Up 2 Months Reason: VITAL SIGNS MEDICATIONS Unknown Medications RESULTS No Results PROCEDURES Procedure Date Ordered Result Body Site Stable Visit (10 minutes) Dec 28, 2016 INSTRUCTIONS MEDICATIONS ADMINISTERED No Known Medications MEDICAL (GENERAL) HISTORY Type Description Date Medical History Decreased Kidney Function Medical History Hypertension Medical History Hyperlipidemia Medical History 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 Medical History Dialysis Surgical History tonsillectomy and adenoidectomy Surgical History appendectomy Surgical History Partial Hysterectomy Surgical History left knee replacement Hospitalization History Chest Tube-[facility] 03/2015 Hospitalization History Fluid on lungs-[facility] Hospitalization History ER -shunt malfunction 10/2016 Hospitalization History ER 12/01/2016 Hospitalization History Broken left arm and fractured pelvis 12/2016 Hospitalization History back pain - [facility] ED visit [facility] 03/07/17 Hospitalization History [facility]- [place]- SOA, Fluid Overload 04/12/17 Hospitalization History [facility] [place]- Bleeding/Needs stitches 04/20/2017 Hospitalization History ER - Shortness of breath 05/29/17
[2018-04-13 15:57] LABS: ALANINE AMINOTRANSFERASE 17 U/L (0-55); ALBUMIN 3.6 GM/DL (3.2-4.5); ALKALINE PHOSPHATASE 63 U/L (40-136); BILIRUBIN,TOTAL 0.4 MG/DL (0.1-1.0); BUN/CREATININE RATIO 6; CALCIUM 8.5 MG/DL (8.5-10.1); CARBON DIOXIDE 29 MMOL/L (21-32); CHLORIDE 98 MMOL/L (98-107); CREATININE SERUM 4.25 MG/DL (0.60-1.30); GFR ESTIMATED 10; GLUCOSE 81 MG/DL (70-105); POTASSIUM 4.5 MMOL/L (3.6-5.0); SODIUM 140 MMOL/L (135-145); TOTAL PROTEIN 5.8 GM/DL (6.4-8.2)
--- OUTSIDE RECORDS SUMMARY | 2018-04-13 15:57 | XMS REPORT ---
Author Author NALLELY SOLIMAN [facility] Address [address] [place] [address] Care Team Providers Care Sample Patternmaker Name Role Phone NALLELY SOLIMAN Unavailable PROBLEMS Type Condition ICD9-CM Code USL57-FN Code Onset Dates Condition Status SNOMED Code Problem Chronic fatigue R53.82 Active 58118043 Problem Recurrent major depressive disorder, in full remission F33.42 Active 847249424 Problem assisted 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 Z79.01 Active 312385476 Problem Cardiomegaly I51.7 Active 8075984 Problem Psychophysiological insomnia F51.04 Active 992295731 Problem Anxiety state, unspecified F41.1 Active 669654951 Problem Moderate episode of recurrent major depressive disorder F33.1 Active 545862313 Problem Constipation, unspecified constipation type K59.00 Active 88097060 Problem Depressive disorder, not elsewhere classified F32.9 Active 03188703 Problem 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 Active 157448 Problem Insomnia, unspecified type G47.00 Active 857591237 Problem Chronic atrial fibrillation I48.2 Active 285190287 Problem Valvular heart disease I38 Active 097886 Problem End stage renal disease N18.6 Active 53982427 Problem Kidney failure N19 Active 54229332 Problem 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 560994855 Problem Hypotension, unspecified hypotension type I95.9 Active 58107971 Problem 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 950542666 ALLERGIES Substance Reaction Event Type Date Status Zantac Unknown Drug Allergy May, Active Tetracycline HCl Unknown Drug Allergy May, Active Sulfamethoxazole-Trimethoprim Unknown Drug Allergy May, Active Penicillin V Potassium Unknown Drug Allergy May, Active Betadine Unknown Drug Allergy May, Active narcotics avoid them Non Drug Allergy May, Active ENCOUNTERS Encounter Location Date Diagnosis [facility] [address] [facility] [id number] [address] Nov, [facility] [id number] [place] [address] 32475- 3159 Oct, [facility] [id number] [place] [address] 15601- 4020 July, Seasonal allergic rhinitis, unspecified trigger J30.2 [facility] [id number] [place] [address] 43484 -3360 Jun, Wheezes R06.2 ; Seasonal allergic rhinitis, unspecified trigger J30.2 and Diarrhea, unspecified type R19.7 [facility] [id number] [place] [address] 71052- 1112 May, Cough R05 and Shortness of breath R06.02 [facility] [id number] [place] [address] 26331- 4249 May, Adverse effect of unspecified systemic antibiotic, initial encounter T36.95XA [facility] [id number] [place] [address] 91697- 1722 May, Adverse effect of unspecified systemic antibiotic, initial encounter T36.95XA ; Toxic gastroenteritis and colitis K52.1 and Cough R05 [facility] [id number] [place] [address] 44239- 3364 May, Shortness of breath R06.02 and Cough R05 [facility] [id number] [place] [address] 16899- 1609 May, [facility] [id number] [place] [address] 40096- 3486 May, Cough R05 ; Kidney failure N19 ; Atrial fibrillation, unspecified type I48.91 and Cardiomegaly I51.7 [facility] [id number] [place] [address] 07242- 9912 May, Cough R05 [facility] [id number] [place] [address] 75628- 8095 May, [facility] [address], [place] [id number] Apr, Dental examination Z01.20 [facility] [id number] [place] [address] 03098- 8588 Mar, [facility] [id number] [place] [address] 42821- 7093 Mar, Hemoglobin low D64.[address] 13620- 7567 Feb, Atrial fibrillation, unspecified type I48.91 ; End stage renal disease N18.6 ; Psychophysiological insomnia F51.04 ; Dark stools R19.5 ; Valvular heart disease I38 and Constipation, unspecified constipation type K59.00 [facility] [id number] [place] [address] 89586- 8108 Feb, 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.2 [facility] [id number] [place] [address] 08431- 0245 Feb, Depressive disorder, not elsewhere classified F32.9 ; Anxiety state, unspecified F41.1 and Cognitive decline R41.89 [facility] [id number] [place] [address] 98693- 5808 Jan, Depressive disorder, not elsewhere classified F32.9 ; Anxiety state, unspecified F41.1 and Cognitive decline R41.89 [facility] [id number] [place] [address] 00063- 2018 Jan, Moderate episode of recurrent major depressive disorder F33.1 ; 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.2 and Atrial fibrillation, unspecified type I48.91 [facility] [id number] [place] [address] 38525- 2312 Jan, Depressive disorder, not elsewhere classified F32.9 ; Anxiety state, unspecified F41.1 and Cognitive decline R41.89 [facility] [address] [place] [id number] Dec, End stage renal disease N18.6 and Valvular heart disease I38 [id number] [place] [address] 12537- 9796 13 Nov, 2016 [facility] [id number] [place] [address] 70238- 0260 Nov, 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 [facility] [id number] [place] [address] 72687- 5813 07 Nov, 2016 Recurrent major depressive disorder, in full remission F33.42 ; 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.2 ; Atrial fibrillation, unspecified type I48.91 and Shaking chills R68.83 [facility] [id number] [place] [address] 64463- 2953 Nov, [facility] [id number] [place] [address] 79189- 3700 Nov, [facility] [id number] [place] [address] 73024- 3698 Oct, assisted 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 Z79.01 [facility] [id number] [place] [address] 23108- 3393 Oct, assisted 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 Z79.01 [facility] [id number] [place] [address] 77703- 2468 Oct, 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 [facility] [id number] [place] [address] 63785- 9761 Oct, 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 [facility] [id number] [place] [address] 72690- 4377 Oct, assisted 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 Z79.01 [facility] [id number] [place] [address] 91410- 6089 Oct, 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 [facility] [id number] [place] [address] 70814- 6562 Oct, 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 [facility] [address] [address] Sep, [facility] [id number] [place] [address] 50967- 3966 Sep, assisted 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 Z79.01 [facility] [id number] [place] [address] 09327 2546 Sep, 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 [facility] [id number] [place] [address] 05930 2546 Sep, assisted 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 Z79.01 [facility] [id number] [place] [address] 80101- 0256 Sep, 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 [facility] [id number] [place] [address] 82015- 4756 Sep, assisted 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 Z79.01 [facility] [id number] [place] [address] 15342- 9564 Sep, assisted 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 Z79.01 [facility] [id number] [place] [address] 17925- 5979 Aug, assisted 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 Z79.01 [facility] [id number] [place] [address] 42288- 9443 Aug, 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 [facility] [id number] [place] [address] 50674 2546 Aug, 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 [facility] [id number] [place] [address] 53533- 5286 July, [facility] [id number] [place] [address] 45157 2543 July, assisted 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 Z79.01 [facility] [id number] [place] [address] 42529- 5504 July, 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 [facility] [id number] [place] [address] 60413- 2896 July, assisted 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 Z79.01 [facility] [id number] [place] [address] 42375- 6173 July, assisted 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 Z79.01 [facility] [id number] [place] [address] 58046- 6832 July, [facility] [id number] [place] [address] 38351- 3940 July, 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 [facility] [id number] [place] [address] 50201- 8345 July, [facility] [id number] [place] [address] 06269- 0310 July, 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 [facility] [id number] [place] [address] 74778- 1074 Jun, assisted 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 Z79.01 [facility] [id number] [place] [address] 12016- 4168 Jun, assisted 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 Z79.01 [facility] [id number] [place] [address] 16437- 6799 Jun, 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 [facility] [id number] [place] [address] 34594- 6005 Jun, 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 [facility] [id number] [place] [address] 19322- 3428 Jun, Fatigue, unspecified type R53.83 and Non-intractable vomiting with nausea, unspecified vomiting type R11.2 [facility] [id number] [place] [address] 91019- 6301 Jun, 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 and Non- intractable vomiting with nausea, unspecified vomiting type R11.2 [facility] [id number] [place] [address] 05467- 7314 May, 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 [facility] [id number] [place] [address] 57219- 9540 May, 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 [facility] [id number] [place] [address] 49158- 0851 May, [facility] [address] 51292- 3336 May, 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 [facility] [id number] [place] [address] 75330- 9815 May, 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 [facility] [id number] [place] [address] 62410- 7004 May, Fall, initial encounter W19.XXXA ; Toe pain, right M79.674 and Dizziness R42 [facility] [id number] [place] [address] 31348- 9617 May, 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 [facility] [id number] [place] [address] 68841- 0145 May, 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 [facility] [id number] [place] [address] 60195- 5849 May, assisted 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 Z79.01 [facility] [id number] [place] [address] 55937- 7247 Apr, [facility] [id number] [place] [address] 51331- 2747 Apr, assisted 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 Z79.01 [facility] [address] [address] 0791 Apr, 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 [facility] [id number] [place] [address] 54627- 2501 Apr, assisted 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 Z79.01 ; Hemodialysis -associated hypotension I95.3 ; Varicose veins of left lower extremity I83.92 and Advance directive discussed with patient Z71.89 [facility] [id number] [place] [address] 12459- 2169 Mar, [facility] [id number] [place] [address] 28826- 8684 Mar, assisted 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 Z79.01 [facility] [id number] [place] [address] 39610- 6106 Mar, 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 [facility] [id number] [place] [address] 10678- 3779 Mar, [facility] [id number] [place] [address] 16590- 7313 Mar, 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 and Encounter for therapeutic drug level monitoring Z51.81 [facility] [address] [address] 8643 Mar, Atrial fibrillation, unspecified type I48.91 [facility] [address] [place] [address] 45249- 5025 Feb, Atrial fibrillation, unspecified type I48.91 [facility] [id number] [place] [address] 91517- 2025 Feb, Atrial fibrillation, unspecified type I48.91 [facility] [address] [address] 1797 Feb, Chronic anticoagulation Z79.01 ; Chronic fatigue R53.82 ; Hemodialysis-associated hypotension I95.3 ; 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.2 and End stage renal disease N18.6 [facility] [id number] [place] [address] 51157- 8751 Feb, [facility] [id number] [place] [address] 95118- 6522 Feb, Atrial fibrillation, unspecified type I48.91 [facility] [id number] [place] [address] 08904- 9943 Feb, [facility] [id number] [place] [address] 30596- 8235 Jan, Atrial fibrillation, unspecified type I48.91 [facility] [id number] [place] [address] 98022- 4335 Jan, Atrial fibrillation, unspecified type I48.91 [facility] [id number] [place] [address] 82172- 2520 Jan, Atrial fibrillation, unspecified type I48.91 ; Insomnia, unspecified type G47.00 ; End stage renal disease N18.6 and Valvular heart disease I38 [facility] [id number] [place] [address] 65242- 6876 Jan, [facility] [id number] [place] [address] 40279- 3467 Jan, Atrial fibrillation, unspecified type I48.91 [facility] [id number] [place] [address] 72258- 2733 Jan, [facility] [address] [place] [address] 00204- 4046 Jan, [facility] [id number] [place] [address] 49957- 6994 Dec, [facility] [address] [place] [address] 44474- 5808 Nov, Hypotension, unspecified hypotension type I95.9 ; Systolic ejection murmur I38 and Insomnia, unspecified type G47.00 [facility] [address] [facility] [id number] [address] Oct, [facility] [address] [facility] [id number] [address] 3977 Oct, [facility] [id number] [address] 9376 Aug, Screening for diabetes mellitus Z13.1 ; 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 and Systolic ejection murmur I38 [facility] [id number] [address] 6822 July, Cough R05 IMMUNIZATIONS No Known Immunizations SOCIAL HISTORY Never Assessed REASON FOR VISIT Cough--tcuppettRN , --Cough & congestion with nasal drainage since yesterday. PLAN OF CARE Activity Details Follow Up 2 - 3 Days with [facility] for f/u Acute visit Reason: VITAL SIGNS Height 67 in 2017-05-27 Weight 114.2 lbs 2017-05-27 Temperature 100.8 degrees Fahrenheit 2017-05-27 Heart Rate 76 bpm 2017-05-27 Respiratory Rate 20 2017-05-27 BMI 17.88 kg/m2 2017-05-27 Blood pressure systolic 144 mmHg 2017-05-27 Blood pressure diastolic 70 mmHg 2017-05-27 MEDICATIONS Medication Instructions Dosage Frequency Start Date End Date Duration Status Sensipar 90 MG Orally 2 times a day 1 tablet 12h Active Renvela 800 MG Orally Three times a day 3 tablets 8h Active Senna S 8.6-50 MG Orally Once a day 1 tablet in the evening as needed 24h Feb, Jun, 30 day(s) Active Metoprolol Tartrate 25 MG TAKE ONE TABLET BY MOUTH TWICE DAILY WITH FOOD 90 Active Aspirin 81 MG Orally Once a day 1 tablet 24h Jan, 30 day(s) Active RESULTS Name Result Date Reference Range INFLUENZA A & B (IN HOUSE) 2017-05-27 INFLUENZA A negative INFLUENZA B negative Control + Lot # [id number] Exp date 06/03/19 PROCEDURES Procedure Date Ordered Result Body Site [facility] VISIT ESTABLISHED PATIENT May 27, 2017 INFLUENZA ASSAY W/OPTIC May 27, 2017 INSTRUCTIONS MEDICATIONS ADMINISTERED No Known Medications MEDICAL (GENERAL) HISTORY Type Description Date Medical History Decreased Kidney Function Medical History Hypertension Medical History Hyperlipidemia Medical History assisted use of coumadin Medical History Dialysis Surgical History tonsillectomy and adenoidectomy Surgical History appendectomy Surgical History Partial Hysterectomy Surgical History left knee replacement Hospitalization History Chest Tube-[facility] 03/2015 Hospitalization History Fluid on lungs-[facility] Hospitalization History ER -shunt malfunction 10/2016 Hospitalization History ER 12/01/2016 Hospitalization History Broken left arm and fractured pelvis 12/2016 Hospitalization History back pain - [facility] ED visit [facility] 03/07/17 Hospitalization History [facility]- [place]- SOA, Fluid Overload 04/12/17 Hospitalization History ER- [place]- Bleeding/Needs stitches 04/20/2017 Hospitalization History ER - Shortness of breath 05/29/17
--- OUTSIDE RECORDS SUMMARY | 2018-04-13 15:57 | XMS REPORT ---
Author Author NALLELY SOLIMAN [facility] Address [address] [place] [address] Care Team Providers Care Slipper Maker Name Role Phone NALLELY SOLIMAN Unavailable PROBLEMS Type Condition ICD9-CM Code LDQ01-GT Code Onset Dates Condition Status SNOMED Code Problem Chronic fatigue R53.82 Active 39713642 Problem Recurrent major depressive disorder, in full remission F33.42 Active 824285588 Problem care home 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 Z79.01 Active 665427926 Problem Cardiomegaly I51.7 Active 0559502 Problem Psychophysiological insomnia F51.04 Active 828332656 Problem Anxiety state, unspecified F41.1 Active 165004468 Problem Moderate episode of recurrent major depressive disorder F33.1 Active 925436783 Problem Constipation, unspecified constipation type K59.00 Active 61057605 Problem Depressive disorder, not elsewhere classified F32.9 Active 73129895 Problem 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 Active 127738 Problem Insomnia, unspecified type G47.00 Active 382221688 Problem Chronic atrial fibrillation I48.2 Active 766589948 Problem Valvular heart disease I38 Active 173004 Problem End stage renal disease N18.6 Active 20301859 Problem Kidney failure N19 Active 69440685 Problem 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 488816799 Problem Hypotension, unspecified hypotension type I95.9 Active 82816044 Problem 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 590443268 ALLERGIES No Information ENCOUNTERS Encounter Location Date Diagnosis [facility] [address] [facility] [id number], [place] [address] Nov, [facility] [address] [id number] [address] Oct, [facility] [address] [facility] [id number], [place] [address] July, Seasonal allergic rhinitis, unspecified trigger J30.2 [facility] [address] [place] [address] Jun, Wheezes R06.2 ; Seasonal allergic rhinitis, unspecified trigger J30.2 and Diarrhea, unspecified type R19.7 [facility] [id number] [place] [address]6902- 0029 May, Cough R05 and Shortness of breath R06.02 [place] [address] [address] May, Adverse effect of unspecified systemic antibiotic, initial encounter T36.95XA [place] [address] [address]- [address] 15 May, 2017 Adverse effect of unspecified systemic antibiotic, initial encounter T36.95XA ; Toxic gastroenteritis and colitis K52.1 and Cough R05 [place] [address] [address]- 0035 May, Shortness of breath R06.02 and Cough R05 [facility] [address] [address] May, [place] [address] [address]- [address] May, Cough R05 ; Kidney failure N19 ; Atrial fibrillation, unspecified type I48.91 and Cardiomegaly I51.7 [facility] [id number] [place] [address] 57380- 9677 May, Cough R05 [facility] [id number] [place] [address] 90307- 4804 May, [facility] [address] [id number] Apr, Dental examination Z01.20 [facility] [id number] [place] [address] 46087- 3244 Mar, [facility] [address] [address]- [address]87 Mar, Hemoglobin low D64.9 [place] [id number] [place] [address] 73792- 7873 Feb, Atrial fibrillation, unspecified type I48.91 ; End stage renal disease N18.6 ; Psychophysiological insomnia F51.04 ; Dark stools R19.5 ; Valvular heart disease I38 and Constipation, unspecified constipation type K59.00 [place] [id number] [place] [address] 21088- 5511 Feb, 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.2 [facility] [place] [id number] [place] [address] 74803- 7076 Feb, Depressive disorder, not elsewhere classified F32.9 ; Anxiety state, unspecified F41.1 and Cognitive decline R41.89 [place] [place] [id number] [place] [address] 05393- 9044 Jan, Depressive disorder, not elsewhere classified F32.9 ; Anxiety state, unspecified F41.1 and Cognitive decline R41.89 [place] [id number] [place] [address] 49328- 7762 Jan, Moderate episode of recurrent major depressive disorder F33.1 ; 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.2 and Atrial fibrillation, unspecified type I48.91 [place] [address] [place] [address] 30363- 4133 Jan, Depressive disorder, not elsewhere classified F32.9 ; Anxiety state, unspecified F41.1 and Cognitive decline R41.89 [facility] [address] [place] [id number] Dec, End stage renal disease N18.6 and Valvular heart disease I38 [place] [id number] [place] [address] 49147- 2404 Nov, [place] [address] [place] [address] 13913- 2508 Nov, 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 [place] [id number] [place] [address] 49486- 2463 07 Nov, 2016 Recurrent major depressive disorder, in full remission F33.42 ; 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.2 ; Atrial fibrillation, unspecified type I48.91 and Shaking chills R68.83 [place] [id number] [place] [address] 94631- 3937 Nov, [place] [address] 60748- 9061 Nov, [place] [id number] [place] [address] 37912- 0482 Oct, care home 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 Z79.01 [place] [id number] [place] [address] 51476- 1297 Oct, 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 [place] [address] 32600- 8560 Oct, care home 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 Z79.01 [place] [id number] [place] [address] 01792- 0822 Oct, care home 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 Z79.01 [place] [id number] [place] [address] 01154- 8815 Oct, 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 [place] [id number] [place] [address] 81825- 7347 Oct, care home 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 Z79.01 [place] [id number] [place] [address] 13662- 9071 Oct, 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 [place] [id number] [place] [address] 10845- 1120 Sep, [place] [id number] [place] [address] 44484- 4257 Sep, 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 [facility] [address], [place] [address] Sep, 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 [facility] [address] [place] [address] 51631 2546 Sep, 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 [facility] [address] [place] [address] 22469- 4636 Sep, care home current use of anticoagulant Z79.01 [facility] [address] [place] [address] 30192 2546 Sep, 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 [facility] [address] [place] [address] 04480- 8266 Sep, care home current use of anticoagulant Z79.01 [place] [address] [place] [address] 38441- 7976 Aug, care home current use of anticoagulant Z79.01 [facility] [address], [place] [address] 2540 Aug, 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 [facility] [address], [place] [address] Aug, 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 [place] [address], [place] [address] July, [facility] [address] [place] [address] 50177 2546 July, care home current use of anticoagulant Z79.01 [facility] [address] [place] [address] 07957 2546 July, 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 [facility] [address] [address] 2546 July, 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 [place] [id number] [place] [address] 80895- 1216 July, care home current use of anticoagulant Z79.01 [place] [id number] [place] [address] 54761- 9797 July, [place] [id number] [place] [address] 93696- 4745 July, 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 [place] [id number] [place] [address] 19199- 9893 July, [place] [id number] [place] [address] 76122- 6927 July, care home current use of anticoagulant Z79.01 [place] [id number] [place] [address] 25128- 3859 Jun, 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 [place] [id number] [place] [address] 84684- 8954 Jun, 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 [place] [id number] [place] [address] 48128- 8845 Jun, care home current use of anticoagulant Z79.01 [place] [id number] [place] [address] 55209- 4378 Jun, 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 [place] [id number] [place] [address] 10942- 9523 Jun, Fatigue, unspecified type R53.83 and Non-intractable vomiting with nausea, unspecified vomiting type R11.2 [place] [id number] [place] [address] 83300- 7326 Jun, care home current use of anticoagulant Z79.01 and Non- intractable vomiting with nausea, unspecified vomiting type R11.2 [place] [id number] [place] [address] 93472- 0041 May, care home current use of anticoagulant Z79.01 [facility] [id number] [place] [address] 32651- 3210 May, care home current use of anticoagulant Z79.01 [facility] [id number] [place] [address] 82707- 4224 May, [place] [address] 07028- 6375 May, care home current use of anticoagulant Z79.01 [place] [address] [place] [address] 46598- 2800 May, care home current use of anticoagulant Z79.01 [place] [address] 12568- 1465 May, Fall, initial encounter W19.XXXA ; Toe pain, right M79.674 and Dizziness R42 [place] [address] [place] [address] 08097- 5362 May, 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 [place] [address] [place] [address] 78853- 2739 May, care home current use of anticoagulant Z79.01 [place] [address] [place] [address] 56732- 1995 May, care home current use of anticoagulant Z79.01 [place] [address] [place] [address] 06707- 5482 Apr, [place] [id number] [place] [address] 50737- 1460 Apr, 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 [place] [address] [place] [address] 61254- 7470 Apr, 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 [place] [address] [place] [address] 70684- 5251 Apr, care home current use of anticoagulant Z79.01 ; Hemodialysis -associated hypotension I95.3 ; Varicose veins of left lower extremity I83.92 and Advance directive discussed with patient Z71.89 [place] [address] [place] [address] 49734- 9348 Mar, [place] [id number] [place] [address] 11111- 0125 Mar, 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 [place] [address] [place] [address] 10993- 0972 Mar, 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 [place] [id number] [place] [address] 23300- 6013 Mar, [place] [address] [place] [address] 38512- 9602 Mar, 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 and Encounter for therapeutic drug level monitoring Z51.81 [place] [address] [place] [address] 38160- 8223 Mar, Atrial fibrillation, unspecified type I48.91 [place] [address] [place] [address] 84276- 3951 Feb, Atrial fibrillation, unspecified type I48.91 [place] [address] [place] [address] 92229- 5909 Feb, Atrial fibrillation, unspecified type I48.91 [place] [address] [place] [address] 60977- 8528 Feb, Chronic anticoagulation Z79.01 ; Chronic fatigue R53.82 ; Hemodialysis-associated hypotension I95.3 ; 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.2 and End stage renal disease N18.6 [place] [address], [place] [address]- 5682 Feb, [place] [address] [place] [address] 75243- 1360 Feb, Atrial fibrillation, unspecified type I48.91 [facility] [id number] [place] [address] 68513- 0603 Feb, [facility] [id number] [place] [address] 64217- 2935 Jan, Atrial fibrillation, unspecified type I48.91 [facility] [id number] [place] [address] 99617- 7453 Jan, Atrial fibrillation, unspecified type I48.91 [facility] [address] [place] [address] 46605- 4656 Jan, Atrial fibrillation, unspecified type I48.91 ; Insomnia, unspecified type G47.00 ; End stage renal disease N18.6 and Valvular heart disease I38 [place] [address] [place] [address] 27299- 1694 Jan, [facility] [id number] [place] [address] 19727- 0065 Jan, Atrial fibrillation, unspecified type I48.91 [facility] [id number] [place] [address] 05858- 0603 Jan, [facility] [id number] [place] [address] 86269- 9965 Jan, [facility] [id number] [place] [address] 83663- 5945 Dec, [facility] [id number] [place] [address] 37169- 0906 Nov, Hypotension, unspecified hypotension type I95.9 ; Systolic ejection murmur I38 and Insomnia, unspecified type G47.00 [facility] [id number] [place] [address] 70322- 0023 Oct, [facility] [id number] [place] [address] 45606- 5518 Oct, [facility] [address] [facility] [id number] [place] [address] 07 Aug, 2015 Screening for diabetes mellitus Z13.1 ; 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 and Systolic ejection murmur I38 [facility] [address] [facility] [id number] [place] [address]- 2507 July, Cough R05 IMMUNIZATIONS No Known Immunizations SOCIAL HISTORY Never Assessed REASON FOR VISIT PLAN OF CARE VITAL SIGNS MEDICATIONS Medication Instructions Dosage Frequency Start Date End Date Duration Status Loratadine 10 mg Orally Once a day 1 tablet 24h July, 30 day(s) Active RESULTS No Results PROCEDURES No Known procedures INSTRUCTIONS MEDICATIONS ADMINISTERED No Known Medications MEDICAL (GENERAL) HISTORY Type Description Date Medical History Decreased Kidney Function Medical History Hypertension Medical History Hyperlipidemia Medical History care home use of coumadin Medical History Dialysis Surgical History tonsillectomy and adenoidectomy Surgical History appendectomy Surgical History Partial Hysterectomy Surgical History left knee replacement Hospitalization History Chest Tube-[facility] 03/2015 Hospitalization History Fluid on lungs-[facility] Hospitalization History ER -shunt malfunction 10/2016 Hospitalization History ER 12/01/2016 Hospitalization History Broken left arm and fractured pelvis 12/2016 Hospitalization History back pain - [facility] ED visit [facility] 03/07/17 Hospitalization History [facility] [place]- SOA, Fluid Overload 04/12/17 Hospitalization History [facility] [place]- Bleeding/Needs stitches 04/20/2017 Hospitalization History [facility] - Shortness of breath 05/29/17
--- OUTSIDE RECORDS SUMMARY | 2018-04-13 15:57 | XMS REPORT ---
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 Active 749806765 Problem Cardiomegaly I51.7 Active 8676714 Problem Psychophysiological insomnia F51.04 Active 150976468 Problem Anxiety state, unspecified F41.1 Active 742432657 Problem Moderate episode of recurrent major depressive disorder F33.1 Active 379652641 Problem Constipation, unspecified constipation type K59.00 Active 64742314 Problem Depressive disorder, not elsewhere classified F32.9 Active 81651005 Problem 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 Active 328910 Problem Insomnia, unspecified type G47.00 Active 896410797 Problem Chronic atrial fibrillation I48.2 Active 133055468 Problem Valvular heart disease I38 Active 258249 Problem End stage renal disease N18.6 Active 31151003 Problem Kidney failure N19 Active 14029600 Problem 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 194343920 Problem Hypotension, unspecified hypotension type I95.9 Active 84795819 Problem 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 401780132 ALLERGIES Substance Reaction Event Type Date Status Zantac Unknown Drug Allergy Jun, Active Tetracycline HCl Unknown Drug Allergy Jun, Active Sulfamethoxazole-Trimethoprim Unknown Drug Allergy Jun, Active Penicillin V Potassium Unknown Drug Allergy Jun, Active Betadine Unknown Drug Allergy Jun, Active narcotics avoid them Non Drug Allergy Jun, Active ENCOUNTERS Encounter Location Date Diagnosis [facility] [address] [facility] [id number] [address] July, Seasonal allergic rhinitis, unspecified trigger J30.2 [facility] [address] [id number] [place] [address] Jun, Wheezes R06.2 ; Seasonal allergic rhinitis, unspecified trigger J30.2 and Diarrhea, unspecified type R19.7 [facility] [address] [address] May, Cough R05 and Shortness of breath R06.02 [facility] [address] [address] May, Adverse effect of unspecified systemic antibiotic, initial encounter T36.95XA [place] [address] [address] May, Adverse effect of unspecified systemic antibiotic, initial encounter T36.95XA ; Toxic gastroenteritis and colitis K52.1 and Cough R05 [facility] [address] [address] May, Shortness of breath R06.02 and Cough R05 [facility] [address] [address]- [address] May, [facility] [address] [address] May, Cough R05 ; Kidney failure N19 ; Atrial fibrillation, unspecified type I48.91 and Cardiomegaly I51.7 [facility] [id number] [place] [address] 28264- 2646 May, Cough R05 [facility] [address] [address] May, [facility] [address] [id number] Apr, Dental examination Z01.20 [place] [address] [address] Mar, [place] [address] [place] [address] 03735- 7787 Mar, Hemoglobin low D64.9 [place] [id number] [place] [address] 54131- 3087 Feb, Atrial fibrillation, unspecified type I48.91 ; End stage renal disease N18.6 ; Psychophysiological insomnia F51.04 ; Dark stools R19.5 ; Valvular heart disease I38 and Constipation, unspecified constipation type K59.00 [place] [id number] [place] [address] 08214- 3731 Feb, 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.2 [place] [id number] [place] [address] 94873- 6740 Feb, Depressive disorder, not elsewhere classified F32.9 ; Anxiety state, unspecified F41.1 and Cognitive decline R41.89 [place] [id number] [place] [address] 09498- 4218 Jan, Depressive disorder, not elsewhere classified F32.9 ; Anxiety state, unspecified F41.1 and Cognitive decline R41.89 [place] [id number] [place] [address] 03658- 1438 Jan, Moderate episode of recurrent major depressive disorder F33.1 ; 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.2 and Atrial fibrillation, unspecified type I48.91 [place] [address] [place] [address] 23900- 0225 Jan, Depressive disorder, not elsewhere classified F32.9 ; Anxiety state, unspecified F41.1 and Cognitive decline R41.89 [facility] [address] [place] [id number] Dec, End stage renal disease N18.6 and Valvular heart disease I38 [place] [address] [place] [address] 65425- 5433 Nov, [place] [id number] [place] [address] 20349- 1793 Nov, half-way current use of anticoagulant Z79.01 [place] [address] [id number] [place] [address] 92576- 0952 Nov, Recurrent major depressive disorder, in full remission F33.42 ; 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.2 ; Atrial fibrillation, unspecified type I48.91 and Shaking chills R68.83 [place] [address] [address]12- 1754 Nov, [place] [address] 83207- [address]79 Nov, [place] [address] [address]17- [address]643 Oct, 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 [place] [id number] [place] [address] 18104- 3920 Oct, half-way current use of anticoagulant Z79.01 [place] [id number] [place] [address] 84126- 1328 Oct, half-way current use of anticoagulant Z79.01 [place] [id number] [place] [address] 23634- 8787 Oct, 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 [place] [id number] [place] [address] 94490- 9448 Oct, 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 [address] [place] [address] 20376- 3046 Sep, half-way current use of anticoagulant Z79.01 [facility] [id number] [place] [address] 90602- 8085 Sep, half-way current use of anticoagulant Z79.01 [facility] [id number] [place] [address] 14525- 3376 Sep, half-way current use of anticoagulant Z79.01 [facility] [id number] [place] [address] 05268- 0968 Sep, half-way current use of anticoagulant Z79.01 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 [address] [place] [address] 40431- 6669 Aug, half-way current use of anticoagulant Z79.01 [facility] [address] [place] [address] 28768- 9877 Aug, half-way current use of anticoagulant Z79.01 [facility] [address] [place] [address] 09436- 9552 July, 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 [address] [place] [address] 45088- 8195 July, half-way current use of anticoagulant Z79.01 [facility] [id number] [place] [address] 97016- 5950 July, [facility] [id number] [place] [address] 09672- 8843 July, half-way current use of anticoagulant Z79.01 [facility] [id number] [place] [address] 79535- 6144 July, [facility] [id number] [place] [address] 32977- 7584 July, half-way current use of anticoagulant Z79.01 [place] [id number] [place] [address] 62438- 8027 Jun, half-way current use of anticoagulant Z79.01 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 [place] [id number] [place] [address] 17157- 0786 May, half-way current use of anticoagulant Z79.01 [place] [id number] [place] [address] 26545- 6777 May, [place] [address] 32310- 5497 May, half-way current use of anticoagulant Z79.01 [place] [address] [id number] [place] [address] 80341- 8549 May, 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 [place] [address] [id number] [place] [address] 46027- 0941 May, Fall, initial encounter W19.XXXA ; Toe pain, right M79.674 and Dizziness R42 [place] [id number] [place] [address] 06026- 5998 May, 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 [place] [id number] [place] [address] 29204- 0532 May, 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 [place] [id number] [place] [address] 68749- 5354 May, half-way current use of anticoagulant Z79.01 [place] [id number] [place] [address] 87797- 1076 Apr, [place] [id number] [place] [address] 65703- 7255 Apr, 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 [place] [id number] [place] [address] 51716- 6154 Apr, 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 [place] [address] [place] [address]- [address] 07 Apr, 2016 half-way current use of anticoagulant Z79.01 ; Hemodialysis -associated hypotension I95.3 ; Varicose veins of left lower extremity I83.92 and Advance directive discussed with patient Z71.89 [place] [address] [id number] [address] Mar, [place] [address] [id number] [place] [address] 18547- 0886 Mar, 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 [place] [address] [id number] [place] [address] 37342- 9348 Mar, half-way current use of anticoagulant Z79.01 [place] [id number] [place] [address] 80610- 8118 Mar, [place] [address] [id number] [place] [address] 31981- 2619 Mar, half-way current use of anticoagulant Z79.01 and Encounter for therapeutic drug level monitoring Z51.81 [place] [id number] [place] [address] 00868- 5599 Mar, Atrial fibrillation, unspecified type I48.91 [place] [address] [place] [address] 44532- 9351 Feb, Atrial fibrillation, unspecified type I48.91 [place] [address] [id number] [place] [address] 77717- 3757 Feb, Atrial fibrillation, unspecified type I48.91 [place] [address] [place] [address] 55167- 6565 Feb, Chronic anticoagulation Z79.01 ; Chronic fatigue R53.82 ; Hemodialysis-associated hypotension I95.3 ; 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.2 and End stage renal disease N18.6 [place] [address] [address] Feb, [place] [address] [id number] [address] 8524 Feb, Atrial fibrillation, unspecified type I48.91 [facility] [id number] [place] [address] 66045- 8363 Feb, [facility] [id number] [place] [address] 71636- 5575 Jan, Atrial fibrillation, unspecified type I48.91 [facility] [id number] [place] [address] 89329- 8982 Jan, Atrial fibrillation, unspecified type I48.91 [place] [address] [id number] [place] [address] 51236- 7079 Jan, Atrial fibrillation, unspecified type I48.91 ; Insomnia, unspecified type G47.00 ; End stage renal disease N18.6 and Valvular heart disease I38 [place] [address] [id number] [place] [address] 31362- 5445 Jan, [facility] [id number] [place] [address] 75996- 8901 Jan, Atrial fibrillation, unspecified type I48.91 [place] [address] [id number] [place] [address] 16565- 5755 Jan, [facility] [address] [address]- 7945 Jan, [facility] [address] [id number] [place] [address] 57973- 4811 Dec, [facility] [address] [place] [address] 80286- 4149 Nov, Hypotension, unspecified hypotension type I95.9 ; Systolic ejection murmur I38 and Insomnia, unspecified type G47.00 [facility] [address] [place] [address] 60102- 2015 Oct, [facility] [address] [id number] [place] [address] 00083- 4037 Oct, [facility] [address] [facility] [id number] [place] [address]- 8183 Aug, Screening for diabetes mellitus Z13.1 ; 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 and Systolic ejection murmur I38 [facility] [address] [facility] [id number] [place] [address]- [address]293 July, Cough R05 IMMUNIZATIONS No Known Immunizations SOCIAL HISTORY Never Assessed REASON FOR VISIT cough that started on ...trouble sleeping. denies any fevers. reports chest congestion. diarrhea that started last noc. kbullardrn, had dialysis this am et was sent here for low O2sats., pt takes dialysis wednesday, , wednesday for the past 10 years PLAN OF CARE Activity Details Follow Up prn Reason: VITAL SIGNS Height 67 in 2017-07-24 Weight 116.2 lbs 2017-07-24 Temperature 98.5 degrees Fahrenheit 2017-07-24 Heart Rate 74 bpm 2017-07-24 Respiratory Rate 20 2017-07-24 Oximetry on room air:95 % 2017-07-24 BMI 18.20 kg/m2 2017-07-24 Blood pressure systolic 114 mmHg 2017-07-24 Blood pressure diastolic 62 mmHg 2017-07-24 MEDICATIONS Medication Instructions Dosage Frequency Start Date End Date Duration Status CompAir Nebulizer - as directed Jun, 10 days Active Sensipar 90 MG Orally 2 times a day 1 tablet 12h Active Albuterol Sulfate 0.63 MG/3ML Inhalation every 4-66 hrs 3 ml as needed Jun, 10 days Active Metoprolol Tartrate 25 MG TAKE ONE TABLET BY MOUTH TWICE DAILY WITH FOOD 90 Active Loratadine 10 MG Orally Once a day 1 tablet 24h 30 day(s) Active Aspirin 81 MG Orally Once a day 1 tablet 24h Jan, 30 day(s) Not-Taking Cefdinir Not-Taking Renvela 800 MG Orally Three times a day 3 tablets 8h Active Promethazine HCl 6.25 MG/5ML Orally every 6 hrs 10 ml as needed 6h Jun, July, 5 days Active RESULTS No Results PROCEDURES Procedure Date Ordered Result Body Site [facility] VISIT ESTABLISHED PATIENT July 24, 2017 INSTRUCTIONS MEDICATIONS ADMINISTERED No Known Medications MEDICAL (GENERAL) HISTORY Type Description Date Medical History Decreased Kidney Function Medical History Hypertension Medical History Hyperlipidemia 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 Hospitalization History ER -shunt malfunction 10/2016 Hospitalization History ER 12/01/2016 Hospitalization History Broken left arm and fractured pelvis 12/2016 Hospitalization History back pain - [facility] ED visit [facility] 03/07/17 Hospitalization History [facility]- SOA, Fluid Overload 04/12/17 Hospitalization History [facility]- Bleeding/Needs stitches 04/20/2017 Hospitalization History [facility] - Shortness of breath 05/29/17
--- OUTSIDE RECORDS SUMMARY | 2018-04-13 15:58 | XMS REPORT ---
Author Author DIOGO ARLEEN Organization [facility] Address [address] [place] [address] Care Team Providers Care Morgue Technician Name Role Phone ARLEEN LIND Unavailable PROBLEMS Type Condition ICD9-CM Code TJE57-ZL Code Onset Dates Condition Status SNOMED Code Problem Chronic fatigue R53.82 Active 57683117 Problem Recurrent major depressive disorder, in full remission F33.42 Active 417471344 Problem 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 frame tender current use of anticoagulant Z79.01 Active 278574287 Problem Cardiomegaly I51.7 Active 0462784 Problem Psychophysiological insomnia F51.04 Active 428904635 Problem Anxiety state, unspecified F41.1 Active 912806329 Problem Moderate episode of recurrent major depressive disorder F33.1 Active 280238328 Problem Constipation, unspecified constipation type K59.00 Active 14792111 Problem Depressive disorder, not elsewhere classified F32.9 Active 61004762 Problem 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 Active 174361 Problem Insomnia, unspecified type G47.00 Active 056719193 Problem Chronic atrial fibrillation I48.2 Active 232770984 Problem Valvular heart disease I38 Active 800297 Problem End stage renal disease N18.6 Active 93591130 Problem Kidney failure N19 Active 47851104 Problem 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 507610293 Problem Hypotension, unspecified hypotension type I95.9 Active 50292263 Problem 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 632312120 ALLERGIES Substance Reaction Event Type Date Status Zantac Unknown Drug Allergy May, Active Tetracycline HCl Unknown Drug Allergy May, Active Sulfamethoxazole-Trimethoprim Unknown Drug Allergy May, Active Penicillin V Potassium Unknown Drug Allergy May, Active Betadine Unknown Drug Allergy May, Active narcotics avoid them Non Drug Allergy May, Active ENCOUNTERS Encounter Location Date Diagnosis [facility] [address] [facility] [id number] [address] July, Seasonal allergic rhinitis, unspecified trigger J30.2 [facility] [id number] [place] [address]02 -[address] Jun, Wheezes R06.2 ; Seasonal allergic rhinitis, unspecified trigger J30.2 and Diarrhea, unspecified type R19.7 [facility] [address] [id number] [place] [address] 38140- 2413 May, Cough R05 and Shortness of breath R06.02 [facility] [address] [address] May, Adverse effect of unspecified systemic antibiotic, initial encounter T36.95XA [place] [address] [address] May, Adverse effect of unspecified systemic antibiotic, initial encounter T36.95XA ; Toxic gastroenteritis and colitis K52.1 and Cough R05 [facility] [address] [address] May, Shortness of breath R06.02 and Cough R05 [place] [address] [address] [id number] [place] [address] 58845- 0280 May, [facility] [address] [address]- [address] May, Cough R05 ; Kidney failure N19 ; Atrial fibrillation, unspecified type I48.91 and Cardiomegaly I51.7 [facility] [id number] [place] [address] 98136- 0212 May, Cough R05 [facility] [id number] [place] [address] 46284- 2796 May, [facility] [id number] [place] [address] [id number] Apr, Dental examination Z01.20 [place] [address] [id number] [place] [address] 11721- 7179 Mar, [place] [id number] [place] [address] 82977- 3990 Mar, Hemoglobin low D64.9 [place] [id number] [place] [address] 20116- 7538 Feb, Atrial fibrillation, unspecified type I48.91 ; End stage renal disease N18.6 ; Psychophysiological insomnia F51.04 ; Dark stools R19.5 ; Valvular heart disease I38 and Constipation, unspecified constipation type K59.00 [place] [address] [id number] [place] [address] 71601- 3384 Feb, 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.2 [place] [address] [address] [id number] [place] [address] 98783- 3633 Feb, Depressive disorder, not elsewhere classified F32.9 ; Anxiety state, unspecified F41.1 and Cognitive decline R41.89 [place] [address] [address] [id number] [place] [address] 59218- 3029 Jan, Depressive disorder, not elsewhere classified F32.9 ; Anxiety state, unspecified F41.1 and Cognitive decline R41.89 [place] [address] [id number] [place] [address] 22109- 0153 Jan, Moderate episode of recurrent major depressive disorder F33.1 ; 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.2 and Atrial fibrillation, unspecified type I48.91 [place] [address] [address] [id number] [place] [address] 93887- 4247 Jan, Depressive disorder, not elsewhere classified F32.9 ; Anxiety state, unspecified F41.1 and Cognitive decline R41.89 [facility] [address] [place] [id number] Dec, End stage renal disease N18.6 and Valvular heart disease I38 [place] [id number] [place] [address] 56878- 0305 Nov, [place] [address] [address] [id number] [place] [address] 64163- 6385 Nov, 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 frame tender current use of anticoagulant Z79.01 [facility] [id number] [place] [address] 90606- 0937 07 Nov, 2016 Recurrent major depressive disorder, in full remission F33.42 ; 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.2 ; Atrial fibrillation, unspecified type I48.91 and Shaking chills R68.83 [facility] [id number] [place] [address] 66305- 8793 Nov, [facility] [address] 95914- 8643 Nov, [place] [address] 65643- 1184 Oct, correction current use of anticoagulant Z79.01 [place] [address] [place] [address] [id number] [place] [address] 15677- 8757 Oct, 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 frame tender current use of anticoagulant Z79.01 [place] [address] 77256- 9555 Oct, 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 frame tender current use of anticoagulant Z79.01 [place] [address] [place] [address] [id number] [place] [address] 46528- 3005 Oct, correction current use of anticoagulant Z79.01 [place] [address] [address] [id number] [place] [address] 12072- 4736 Oct, correction current use of anticoagulant Z79.01 [place] [address] [address] [id number] [place] [address] 87196- 7133 Oct, correction current use of anticoagulant Z79.01 [place] [address] [place] [address] [id number] [place] [address] 62209- 0241 Oct, 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 frame tender current use of anticoagulant Z79.01 [facility] [address] [address] [id number] [place] [address] 45092- 1578 Sep, [facility] [address] [id number] [place] [address] 34385- 3247 Sep, correction current use of anticoagulant Z79.01 [facility] [address] [address] Sep, correction current use of anticoagulant Z79.01 [facility] [address] [address] Sep, 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 frame tender current use of anticoagulant Z79.01 [facility] [id number] [place] [address] 97810- 3346 Sep, 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 frame tender current use of anticoagulant Z79.01 [facility] [address] [address] Sep, correction current use of anticoagulant Z79.01 [facility] [address] [place] [address] 13646- 9836 Sep, correction current use of anticoagulant Z79.01 [facility] [address] [place] [address] 69814- 1791 Aug, 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 frame tender current use of anticoagulant Z79.01 [facility] [address] [address]60 Aug, correction current use of anticoagulant Z79.01 [facility] [address] [address] 9[address] Aug, correction current use of anticoagulant Z79.01 [facility] [address] [address] July, [facility] [address] [address] July, correction current use of anticoagulant Z79.01 [facility] [address] [address] July, correction current use of anticoagulant Z79.01 [facility] [address] [address] July, correction current use of anticoagulant Z79.01 [place] [address] [address] 27[address] July, correction current use of anticoagulant Z79.01 [place] [address] [place] [address] 70588- 0684 July, [place] [address] [place] [address] [id number] [place] [address] 58634- 7281 July, 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 frame tender current use of anticoagulant Z79.01 [place] [address] [place] [address] 98611- 6797 July, [place] [address] [place] [address] [id number] [place] [address] 58324- 5918 July, 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 frame tender current use of anticoagulant Z79.01 [place] [address] [place] [address] [id number] [place] [address] 96645- 7315 Jun, 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 frame tender current use of anticoagulant Z79.01 [place] [address] [place] [address] [id number] [place] [address] 20403- 8462 Jun, 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 frame tender current use of anticoagulant Z79.01 [place] [address] [place] [address] [id number] [place] [address] 65768- 8405 Jun, 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 frame tender current use of anticoagulant Z79.01 [place] [address] [address]- 7802 Jun, correction current use of anticoagulant Z79.01 [place] [address] [place] [address] 67121- 1684 Jun, Fatigue, unspecified type R53.83 and Non-intractable vomiting with nausea, unspecified vomiting type R11.2 [place] [address] [id number] [place] [address] 30907- 8312 Jun, correction current use of anticoagulant Z79.01 and Non- intractable vomiting with nausea, unspecified vomiting type R11.2 [place] [id number] [place] [address] 75499- 6508 May, 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 frame tender current use of anticoagulant Z79.01 [place] [address] [place] [address] [id number] [place] [address] 71690- 5050 May, 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 frame tender current use of anticoagulant Z79.01 [place] [address] [place] [address] [id number] [place] [address] 68157- 3802 May, [place] [address] 26351- 4142 May, 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 frame tender current use of anticoagulant Z79.01 [place] [address] [place] [address] [id number] [place] [address] 29405- 2593 May, correction current use of anticoagulant Z79.01 [place] [address] [place] [address] [id number] [place] [address] 05511- 1525 May, Fall, initial encounter W19.XXXA ; Toe pain, right M79.674 and Dizziness R42 [place] [address] [place] [address] [id number] [place] [address] 50319- 7293 May, 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 frame tender current use of anticoagulant Z79.01 [place] [address] [address] [id number] [place] [address] 99287- 4344 May, 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 frame tender current use of anticoagulant Z79.01 [place] [address] [place] [address] [id number] [place] [address] 07980- 6902 May, 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 frame tender current use of anticoagulant Z79.01 [place] [address] [address] [id number] [place] [address] 93034- 3595 Apr, [place] [address] [address] [id number] [place] [address] 37472- 6338 Apr, correction current use of anticoagulant Z79.01 [place] [address] [address] [id number] [place] [address] 79607- 8422 Apr, 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 frame tender current use of anticoagulant Z79.01 [place] [address] 96149- 4306 Apr, correction current use of anticoagulant Z79.01 ; Hemodialysis -associated hypotension I95.3 ; Varicose veins of left lower extremity I83.92 and Advance directive discussed with patient Z71.89 [place] [address] [place] [address] 58744- 2885 Mar, [place] [address] [place] [address] [id number] [place] [address] 17790- 5510 Mar, 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 frame tender current use of anticoagulant Z79.01 [place] [address] [address] [id number] [place] [address] 13019- 9240 Mar, correction current use of anticoagulant Z79.01 [place] [address] [address] [id number] [place] [address] 92249- 6501 Mar, [place] [address] [place] [address] [id number] [place] [address] 48368- 8529 Mar, 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 frame tender current use of anticoagulant Z79.01 and Encounter for therapeutic drug level monitoring Z51.81 [place] [address] [address] [id number] [place] [address] 91839- 6893 Mar, Atrial fibrillation, unspecified type I48.91 [place] [address] [id number] [place] [address] 48228- 6251 Feb, Atrial fibrillation, unspecified type I48.91 [place] [address] [address] [id number] [place] [address] 26694- 6071 Feb, Atrial fibrillation, unspecified type I48.91 [place] [address] [address] [id number] [place] [address] 53539- 2273 Feb, Chronic anticoagulation Z79.01 ; Chronic fatigue R53.82 ; Hemodialysis-associated hypotension I95.3 ; 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.2 and End stage renal disease N18.6 [place] [address] [place] [address] 00256- 3482 Feb, [place] [address] [address] [id number] [place] [address] 17763- 0360 Feb, Atrial fibrillation, unspecified type I48.91 [facility] [id number] [place] [address] 45445- 2081 Feb, [facility] [id number] [place] [address] 44182- 5663 Jan, Atrial fibrillation, unspecified type I48.91 [facility] [id number] [place] [address] 97267- 3378 Jan, Atrial fibrillation, unspecified type I48.91 [facility] [id number] [place] [address] 96160- 7337 Jan, Atrial fibrillation, unspecified type I48.91 ; Insomnia, unspecified type G47.00 ; End stage renal disease N18.6 and Valvular heart disease I38 [place] [address] [place] [address] [id number] [place] [address] 19111- 9247 Jan, [facility] [id number] [place] [address] 53936- 7348 Jan, Atrial fibrillation, unspecified type I48.91 [facility] [id number] [place] [address] 82187- 3728 Jan, [facility] [id number] [place] [address] 37249- 6182 Jan, [facility] [id number] [place] [address] 25666- 0279 Dec, [facility] [id number] [place] [address] 64376- 6084 Nov, Hypotension, unspecified hypotension type I95.9 ; Systolic ejection murmur I38 and Insomnia, unspecified type G47.00 [facility] [id number] [place] [address] 17844- 8831 Oct, [facility] [id number] [place] [address] 63326- 1031 Oct, [facility] [address] [facility] [id number] [place] [address]- 2708 Aug, Screening for diabetes mellitus Z13.1 ; 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 and Systolic ejection murmur I38 [facility] [address] [facility] [id number] [place] [address]- 2517 July, Cough R05 IMMUNIZATIONS No Known Immunizations SOCIAL HISTORY Never Assessed REASON FOR VISIT Diarrhea, cough off and on for the last two weeks -- kenyon gibson PLAN OF CARE Activity Details Follow Up as scheduled Reason: VITAL SIGNS Height 67 in 2017-06-10 Weight 116.0 lbs 2017-06-10 Temperature 98.8 degrees Fahrenheit 2017-06-10 Heart Rate 79 bpm 2017-06-10 Respiratory Rate 20 2017-06-10 BMI 18.17 kg/m2 2017-06-10 Blood pressure systolic 139 mmHg 2017-06-10 Blood pressure diastolic 68 mmHg 2017-06-10 MEDICATIONS Medication Instructions Dosage Frequency Start Date End Date Duration Status Sensipar 90 MG Orally 2 times a day 1 tablet 12h Active Aspirin 81 MG Orally Once a day 1 tablet 24h Jan, 30 day(s) Active Cefdinir Active Renvela 800 MG Orally Three times a day 3 tablets 8h Active Senna S 8.6-50 MG Orally Once a day 1 tablet in the evening as needed 24h Feb, Jun, 30 day(s) Active Tessalon Perles 100 mg Orally qhs 1 capsule as needed May,Jun 30 days Active Metoprolol Tartrate 25 MG TAKE ONE TABLET BY MOUTH TWICE DAILY WITH FOOD 90 Active RESULTS Name Result Date Reference Range Xray : Chest 2 View (IN HOUSE) 2017-06-10 PROCEDURES Procedure Date Ordered Result Body Site X-RAY EXAM CHEST 2 VIEWS June 10, 2017 [facility] VISIT ESTABLISHED PATIENT June 10, 2017 INSTRUCTIONS MEDICATIONS ADMINISTERED No Known Medications MEDICAL (GENERAL) HISTORY Type Description Date Medical History Decreased Kidney Function Medical History Hypertension Medical History Hyperlipidemia Medical History 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 frame tender use of coumadin Medical History Dialysis Surgical History tonsillectomy and adenoidectomy Surgical History appendectomy Surgical History Partial Hysterectomy Surgical History left knee replacement Hospitalization History Chest Tube[facility] 03/2015 Hospitalization History Fluid on lungs-[facility] Hospitalization History ER -shunt malfunction 10/2016 Hospitalization History ER 12/01/2016 Hospitalization History Broken left arm and fractured pelvis 12/2016 Hospitalization History back pain - [facility] ED [facility] Hospital[facility] History ER- [facility]- Bleeding/Needs stitches 04/20/2017 Hospitalization History ER - Shortness of breath 05/29/17
--- OUTSIDE RECORDS SUMMARY | 2018-04-13 15:58 | XMS REPORT ---
Author Author NALLELY SOLIMAN Organization [facility] Address [address] [place] [address] Care Team Providers Care Associate Professor Of Economics Name Role Phone NALLELY SOLIMAN Unavailable PROBLEMS Type Condition ICD9-CM Code GOQ91-AC Code Onset Dates Condition Status SNOMED Code Problem Chronic fatigue R53.82 Active 53285890 Problem Recurrent major depressive disorder, in full remission F33.42 Active 997888570 Problem senior care current use of anticoagulant Z79.01 Active 761787482 Problem Cardiomegaly I51.7 Active 5106482 Problem Psychophysiological insomnia F51.04 Active 740431377 Problem Anxiety state, unspecified F41.1 Active 172108498 Problem Moderate episode of recurrent major depressive disorder F33.1 Active 411761158 Problem Constipation, unspecified constipation type K59.00 Active 95223631 Problem Depressive disorder, not elsewhere classified F32.9 Active 65649952 Problem 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 Active 988904 Problem Insomnia, unspecified type G47.00 Active 659375207 Problem Chronic atrial fibrillation I48.2 Active 772314901 Problem Valvular heart disease I38 Active 891494 Problem End stage renal disease N18.6 Active 98690964 Problem Kidney failure N19 Active 04266819 Problem 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 126520072 Problem Hypotension, unspecified hypotension type I95.9 Active 70132585 Problem 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 850234714 ALLERGIES Substance Reaction Event Type Date Status Zantac Unknown Drug Allergy May, Active Tetracycline HCl Unknown Drug Allergy May, Active Sulfamethoxazole-Trimethoprim Unknown Drug Allergy May, Active Penicillin V Potassium Unknown Drug Allergy May, Active Betadine Unknown Drug Allergy May, Active narcotics avoid them Non Drug Allergy May, Active ENCOUNTERS Encounter Location Date Diagnosis [facility] [address] [facility] [id number] [address] July, Seasonal allergic rhinitis, unspecified trigger J30.2 [facility] [id number] [place] [address]57 Jun, Wheezes R06.2 ; Seasonal allergic rhinitis, unspecified trigger J30.2 and Diarrhea, unspecified type R19.7 [facility] [address] [place] [id number] [place] [address] 01573- 5613 May, Cough R05 and Shortness of breath R06.02 [facility] [address] [address] May, Adverse effect of unspecified systemic antibiotic, initial encounter T36.95XA [place] [address] [address]- [address] 15 May, 2017 Adverse effect of unspecified systemic antibiotic, initial encounter T36.95XA ; Toxic gastroenteritis and colitis K52.1 and Cough R05 [facility] [address] [address]- [address] May, Shortness of breath R06.02 and Cough R05 [place] [address] [address] [id number] [place] [address] 07942- 7192 May, [facility] [address] [address]- 8862 May, Cough R05 ; Kidney failure N19 ; Atrial fibrillation, unspecified type I48.91 and Cardiomegaly I51.7 [facility] [id number] [place] [address] 02637- 0954 May, Cough R05 [facility] [id number] [place] [address] 60694- 8675 May, [facility] [id number] [place] [id number] Apr, Dental examination Z01.20 [facility] [id number] [place] [address] 52455- 5456 Mar, [place] [address] [place] [address] [id number] [place] [address] 57199- 2812 Mar, Hemoglobin low D64.9 [place] [address] 91405- 5476 Feb, Atrial fibrillation, unspecified type I48.91 ; End stage renal disease N18.6 ; Psychophysiological insomnia F51.04 ; Dark stools R19.5 ; Valvular heart disease I38 and Constipation, unspecified constipation type K59.00 [place] [address] [id number] [place] [address] 04508- 9264 Feb, 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.2 [place] [address] 02041- 6648 Feb, Depressive disorder, not elsewhere classified F32.9 ; Anxiety state, unspecified F41.1 and Cognitive decline R41.[address] [address]- [address] Jan, Depressive disorder, not elsewhere classified F32.9 ; Anxiety state, unspecified F41.1 and Cognitive decline R41.89 [place] [address] [place] [address] [id number] [place] [address] 30627- 5187 Jan, Moderate episode of recurrent major depressive disorder F33.1 ; 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.2 and Atrial fibrillation, unspecified type I48.91 [place] [address] [place] [id number] [place] [address] 89369- 3995 Jan, Depressive disorder, not elsewhere classified F32.9 ; Anxiety state, unspecified F41.1 and Cognitive decline R41.89 [facility] [address] [place] [id number] Dec, End stage renal disease N18.6 and Valvular heart disease I38 [place] [address] [address] [id number] [place] [address] 17087- 9492 Nov, [place] [address] [address] [id number] [place] [address] 70399- 2259 Nov, senior care current use of anticoagulant Z79.01 [facility] [address] [place] [address] 03285- 9449 07 Nov, 2016 Recurrent major depressive disorder, in full remission F33.42 ; 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.2 ; Atrial fibrillation, unspecified type I48.91 and Shaking chills R68.83 [place] [id number] [place] [address] 82779- 1347 Nov, [place] [address] [address] [id number] [place] [address] 54104- 4028 Nov, [place] [address] [place] [address] [id number] [place] [address] 77051- 8340 Oct, 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 frame tender current use of anticoagulant Z79.01 [place] [address] [place] [address] [id number] [place] [address] 51470- 7717 Oct, senior care current use of anticoagulant Z79.01 [place] [address] [place] [address] [id number] [place] [address] 37178- 0608 Oct, 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 frame tender current use of anticoagulant Z79.01 [place] [address] [place] [address] [id number] [place] [address] 12448- 2783 Oct, senior care current use of anticoagulant Z79.01 [place] [address] [place] [address] [id number] [place] [address] 60249- 0307 Oct, senior care current use of anticoagulant Z79.01 [place] [address] [place] [address] [id number] [place] [address] 44352- 2928 Oct, senior care current use of anticoagulant Z79.01 [place] [address] [address] [id number] [place] [address] 06714- 6110 Oct, senior care current use of anticoagulant Z79.01 [place] [address] [place] [id number] [place] [address] 73614- 5151 Sep, [place] [address] [place] [address] [id number] [place] [address] 54572- 4780 Sep, 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 frame tender current use of anticoagulant Z79.01 [facility] [address] [address] Sep, 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 frame tender current use of anticoagulant Z79.01 [facility] [address] [address] 2546 Sep, senior care current use of anticoagulant Z79.01 [facility] [id number] [place] [address] 71592 2546 Sep, senior care current use of anticoagulant Z79.01 [facility] [address] [address] 2546 Sep, 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 frame tender current use of anticoagulant Z79.01 [facility] [address] [place] [address] 44243 2546 Sep, senior care current use of anticoagulant Z79.01 [place] [address] [place] [address] [id number] [place] [address] 76563- 4666 Aug, 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 frame tender current use of anticoagulant Z79.01 [facility] [address] [address] Aug, 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 frame tender current use of anticoagulant Z79.01 [facility] [address] [address] Aug, senior care current use of anticoagulant Z79.01 [place] [address] [address] July, [facility] [address] [place] [address] 37095 2548 July, 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 frame tender current use of anticoagulant Z79.01 [facility] [address] [address] 2546 July, senior care current use of anticoagulant Z79.01 [facility] [address] [address] July, 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 frame tender current use of anticoagulant Z79.01 [place] [address] [address] July, senior care current use of anticoagulant Z79.01 [place] [address] [id number] [place] [address] 56078- 6972 July, [place] [address] [place] [address] [id number] [place] [address] 40225- 6723 July, 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 frame tender current use of anticoagulant Z79.01 [place] [address] [place] [address] [id number] [place] [address] 74552- 3064 July, [place] [address] [address] [id number] [place] [address] 10531- 1658 July, 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 frame tender current use of anticoagulant Z79.01 [place] [address] [address] [id number] [place] [address] 80443- 0317 Jun, senior care current use of anticoagulant Z79.01 [place] [address] [address] [id number] [place] [address] 88820- 8152 Jun, 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 frame tender current use of anticoagulant Z79.01 [place] [address] [id number] [place] [address] 52691- 5177 Jun, 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 frame tender current use of anticoagulant Z79.01 [place] [address] [place] [address] [id number] [place] [address] 56843- 2700 Jun, senior care current use of anticoagulant Z79.01 [place] [address] [address] [id number] [place] [address] 80110- 5772 Jun, Fatigue, unspecified type R53.83 and Non-intractable vomiting with nausea, unspecified vomiting type R11.2 [place] [address] [place] [address] [id number] [place] [address] 96695- 8930 Jun, 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 frame tender current use of anticoagulant Z79.01 and Non- intractable vomiting with nausea, unspecified vomiting type R11.2 [place] [address] [place] [id number] [place] [address] 84171- 0665 May, senior care current use of anticoagulant Z79.01 [place] [address] [place] [address] [id number] [place] [address] 18794- 5656 May, senior care current use of anticoagulant Z79.01 [place] [address] [place] [address] [id number] [place] [address] 57031- 9039 May, [place] [address] 42124- 2469 May, senior care current use of anticoagulant Z79.01 [place] [address] [place] [id number] [place] [address] 76671- 5423 May, senior care current use of anticoagulant Z79.01 [place] [address] [place] [address] [id number] [place] [address] 30176- 5318 May, Fall, initial encounter W19.XXXA ; Toe pain, right M79.674 and Dizziness R42 [place] [address] [place] [id number] [place] [address] 34979- 6398 May, 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 frame tender current use of anticoagulant Z79.01 [place] [address] [place] [id number] [place] [address] 77309- 8858 May, 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 frame tender current use of anticoagulant Z79.01 [place] [address] [place] [id number] [place] [address] 76792- 5908 May, senior care current use of anticoagulant Z79.01 [place] [address] [place] [id number] [place] [address] 75545- 6031 Apr, [place] [address] [place] [id number] [place] [address] 84558- 7293 Apr, senior care current use of anticoagulant Z79.01 [place] [address] [place] [address] [id number] [place] [address] 78106- 2056 Apr, 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 frame tender current use of anticoagulant Z79.01 [place] [address] [place] [address] [id number] [place] [address] 10173- 3707 Apr, senior care current use of anticoagulant Z79.01 ; Hemodialysis -associated hypotension I95.3 ; Varicose veins of left lower extremity I83.92 and Advance directive discussed with patient Z71.89 [place] [address] [address] Mar, [place] [address] [place] [id number] [place] [address] 81780- 6709 Mar, 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 frame tender current use of anticoagulant Z79.01 [place] [address] [place] [address] [id number] [place] [address] 76634- 9805 Mar, senior care current use of anticoagulant Z79.01 [place] [address] [place] [id number] [place] [address] 58951- 2501 Mar, [place] [address] [place] [id number] [place] [address] 89591- 2128 Mar, 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 frame tender current use of anticoagulant Z79.01 and Encounter for therapeutic drug level monitoring Z51.81 [place] [address] [place] [id number] [place] [address] 46435- 0642 Mar, Atrial fibrillation, unspecified type I48.91 [place] [address] [place] [id number] [place] [address] 90198- 2641 Feb, Atrial fibrillation, unspecified type I48.91 [place] [address] [place] [address] [id number] [place] [address] 94282- 9418 Feb, Atrial fibrillation, unspecified type I48.91 [place] [address] [place] [id number] [place] [address] 64049- 1308 Feb, Chronic anticoagulation Z79.01 ; Chronic fatigue R53.82 ; Hemodialysis-associated hypotension I95.3 ; 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.2 and End stage renal disease N18.6 [place] [address] [place] [address] 34094- 5131 Feb, [place] [address] [place] [id number] [place] [address] 26943- 1454 Feb, Atrial fibrillation, unspecified type I48.91 [facility] [id number] [place] [address] 76624- 1040 Feb, [facility] [id number] [place] [address] 74046- 3095 Jan, Atrial fibrillation, unspecified type I48.91 [facility] [address] [place] [id number] [place] [address] 98889- 4228 Jan, Atrial fibrillation, unspecified type I48.91 [place] [address] [place] [address] [id number] [place] [address] 00542- 0426 Jan, Atrial fibrillation, unspecified type I48.91 ; Insomnia, unspecified type G47.00 ; End stage renal disease N18.6 and Valvular heart disease I38 [place] [address] [place] [id number] [place] [address] 11719- 0884 Jan, [facility] [id number] [place] [address] 98214- 8068 Jan, Atrial fibrillation, unspecified type I48.91 [place] [address] [place] [id number] [place] [address] 88435- 5464 Jan, [facility] [id number] [place] [address] 78420- 2538 Jan, [facility] [id number] [place] [address] 21330- 0843 Dec, [facility] [address] [place] [address] 93915- 6569 Nov, Hypotension, unspecified hypotension type I95.9 ; Systolic ejection murmur I38 and Insomnia, unspecified type G47.00 [facility] [address] [address]- 3807 Oct, [facility] [id number] [place] [address] 06808- 1495 Oct, [facility] [address] [facility] [id number] [place] [address]- 5091 Aug, Screening for diabetes mellitus Z13.1 ; 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 and Systolic ejection murmur I38 [facility] [address] [facility] [id number] [place] [address]- 3970 July, Cough R05 IMMUNIZATIONS No Known Immunizations SOCIAL HISTORY Never Assessed REASON FOR VISIT Shortness of breath f/u--tcuppettRN PLAN OF CARE Activity Details Follow Up 2 Weeks with Josefa griffith Acute illness Reason: VITAL SIGNS Height 67 in 2017-06-02 Weight 120.0 lbs 2017-06-02 Temperature 98.4 degrees Fahrenheit 2017-06-02 Heart Rate 72 bpm 2017-06-02 Respiratory Rate 20 2017-06-02 Oximetry 94 % 2017-06-02 BMI 18.79 kg/m2 2017-06-02 Blood pressure systolic 150 mmHg 2017-06-02 Blood pressure diastolic 64 mmHg 2017-06-02 MEDICATIONS Medication Instructions Dosage Frequency Start Date End Date Duration Status Cefdinir Active Tessalon Perles 100 mg Orally qhs 1 capsule as needed May,Jun 30 days Active Aspirin 81 MG Orally Once a day 1 tablet 24h Jan, 30 day(s) Active Sensipar 90 MG Orally 2 times a day 1 tablet 12h Active Metoprolol Tartrate 25 MG TAKE ONE TABLET BY MOUTH TWICE DAILY WITH FOOD 90 Active Senna S 8.6-50 MG Orally Once a day 1 tablet in the evening as needed 24h Feb, Jun, 30 day(s) Active Renvela 800 MG Orally Three times a day 3 tablets 8h Active RESULTS No Results PROCEDURES Procedure Date Ordered Result Body Site [facility] VISIT ESTABLISHED PATIENT June 02, 2017 INSTRUCTIONS MEDICATIONS ADMINISTERED No Known Medications MEDICAL (GENERAL) HISTORY Type Description Date Medical History Decreased Kidney Function Medical History Hypertension Medical History Hyperlipidemia Medical History 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 frame tender use of coumadin Medical History Dialysis Surgical History tonsillectomy and adenoidectomy Surgical History appendectomy Surgical History Partial Hysterectomy Surgical History left knee replacement Hospitalization History Chest Tube-[facility] 03/2015 Hospitalization History Fluid on lungs-[facility] Hospitalization History ER -shunt malfunction 10/2016 Hospitalization History ER 12/01/2016 Hospitalization History Broken left arm and fractured pelvis 12/2016 Hospitalization History back pain - [facility] ED visit [place] 03/07/17 Hospitalization History ER- [place]- SOA, Fluid Overload 04/12/17 Hospitalization History ER- [place]- Bleeding/Needs stitches 04/20/2017 Hospitalization History ER - Shortness of breath 05/29/17
--- OUTSIDE RECORDS SUMMARY | 2018-04-13 15:58 | XMS REPORT ---
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 Name Role Phone NALLELY SOLIMAN Unavailable PROBLEMS Type Condition ICD9-CM Code [id number] Code Onset Dates Condition Status SNOMED Code Problem Chronic fatigue R53.82 Active 49164365 Problem Recurrent major depressive disorder, in full remission F33.42 Active 466960338 Problem [facility] current use of anticoagulant Z79.01 Active 829635155 Problem Cardiomegaly I51.7 Active 0207762 Problem Psychophysiological insomnia F51.04 Active 978808958 Problem Anxiety state, unspecified F41.1 Active 748610792 Problem Moderate episode of recurrent major depressive disorder F33.1 Active 308711720 Problem Constipation, unspecified constipation type K59.00 Active 51974498 Problem Depressive disorder, not elsewhere classified F32.9 Active 78039976 Problem 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 Active 325685 Problem Insomnia, unspecified type G47.00 Active 543129448 Problem Chronic atrial fibrillation I48.2 Active 171942566 Problem Valvular heart disease I38 Active 477894 Problem End stage renal disease N18.6 Active 26811022 Problem Kidney failure N19 Active 00226824 Problem 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 025296963 Problem Hypotension, unspecified hypotension type I95.9 Active 16157865 Problem 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 170742519 ALLERGIES Substance Reaction Event Type Date Status Zantac Unknown Drug Allergy May, Active Tetracycline HCl Unknown Drug Allergy May, Active Sulfamethoxazole-Trimethoprim Unknown Drug Allergy May, Active Penicillin V Potassium Unknown Drug Allergy May, Active Betadine Unknown Drug Allergy May, Active narcotics avoid them Non Drug Allergy May, Active ENCOUNTERS Encounter Location Date Diagnosis [facility] [address] [facility] [id number] [address] July, Seasonal allergic rhinitis, unspecified trigger J30.2 [facility] [id number] [place] [address] Jun, Wheezes R06.2 ; Seasonal allergic rhinitis, unspecified trigger J30.2 and Diarrhea, unspecified type R19.7 [facility] [address] [place] [id number] [place] [address]226- 3110 May, Cough R05 and Shortness of breath R06.02 [facility] [address] [address] May, Adverse effect of unspecified systemic antibiotic, initial encounter T36.95XA [place] [address] [address] 15 May, 2017 Adverse effect of unspecified systemic antibiotic, initial encounter T36.95XA ; Toxic gastroenteritis and colitis K52.1 and Cough R05 [facility] [address] [address] May, Shortness of breath R06.02 and Cough R05 [place] [id number] [place] [address] 71384- 1503 May, [facility] [address] [address]- [address] May, Cough R05 ; Kidney failure N19 ; Atrial fibrillation, unspecified type I48.91 and Cardiomegaly I51.7 [facility] [id number] [place] [address] 50841- 3013 May, Cough R05 [facility] [id number] [place] [address] 29129- 3990 May, [facility] [id number] [place] [id number] Apr, Dental examination Z01.20 [facility] [id number] [place] [address] 59853- 7893 Mar, [place] [id number] [place] [address] 70583- 0395 Mar, Hemoglobin low D64.9 [place] [address] 25874- 59[address] Feb, Atrial fibrillation, unspecified type I48.91 ; End stage renal disease N18.6 ; Psychophysiological insomnia F51.04 ; Dark stools R19.5 ; Valvular heart disease I38 and Constipation, unspecified constipation type K59.00 [place] [id number] [place] [address] 73027- 4938 Feb, 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.2 [place] [address] 41802- 2245 Feb, Depressive disorder, not elsewhere classified F32.9 ; Anxiety state, unspecified F41.1 and Cognitive decline R41.[address] [address] Jan, Depressive disorder, not elsewhere classified F32.9 ; Anxiety state, unspecified F41.1 and Cognitive decline R41.89 [place] [address] [id number] [place] [address] 39208- 6082 Jan, Moderate episode of recurrent major depressive disorder F33.1 ; 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.2 and Atrial fibrillation, unspecified type I48.91 [place] [id number] [place] [address] 99911- 5271 Jan, Depressive disorder, not elsewhere classified F32.9 ; Anxiety state, unspecified F41.1 and Cognitive decline R41.89 [facility] [address] [place] [id number] Dec, End stage renal disease N18.6 and Valvular heart disease I38 [place] [address] [id number] [place] [address] 15578- 2863 Nov, [place] [address] [id number] [place] [address] 54204- 8016 Nov, [facility] current use of anticoagulant Z79.01 [facility] [id number] [place] [address] 23735- 6004 07 Nov, 2016 Recurrent major depressive disorder, in full remission F33.42 ; 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.2 ; Atrial fibrillation, unspecified type I48.91 and Shaking chills R68.83 [place] [id number] [place] [address] 23256- 0185 Nov, [place] [address] [id number] [place] [address] 98942- 0627 Nov, [place] [id number] [place] [address] 41433- 3218 Oct, 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 [place] [address] [id number] [place] [address] 94672- 7311 Oct, [facility] current use of anticoagulant Z79.01 [place] [address] [id number] [place] [address] 59312- 1351 Oct, 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 [place] [address] [id number] [place] [address] 24198- 8083 Oct, [facility] current use of anticoagulant Z79.01 [place] [address] [id number] [place] [address] 49427- 6749 Oct, [facility] current use of anticoagulant Z79.01 [place] [id number] [place] [address] 79718- 6506 Oct, [facility] current use of anticoagulant Z79.01 [place] [address] [address] [id number] [place] [address] 33195- 7943 Oct, [facility] current use of anticoagulant Z79.01 [place] [address] [address] [id number] [place] [address] 93222- 8758 Sep, [place] [address] [address] [id number] [place] [address] 72772- 9374 Sep, 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 [facility] [address] [address] Sep, 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 [facility] [address] [address] 2546 Sep, [facility] current use of anticoagulant Z79.01 [facility] [id number] [place] [address] 74038 2546 Sep, [facility] current use of anticoagulant Z79.01 [facility] [address] [address] 2546 Sep, 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 [facility] [id number] [place] [address] 05520 2546 Sep, [facility] current use of anticoagulant Z79.01 [place] [id number] [place] [address] 86408- 6393 Aug, 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 [facility] [address] [address] Aug, 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 [facility] [address] [address] Aug, [facility] current use of anticoagulant Z79.01 [place] [address] [address] July, [facility] [id number] [place] [address] 75784 2544 July, 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 [facility] [address] [address] 2546 July, [facility] current use of anticoagulant Z79.01 [facility] [address] [address] July, 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 [place] [address] [address] July, [facility] current use of anticoagulant Z79.01 [place] [address] [id number] [place] [address] 36386- 2475 July, [place] [address] [id number] [place] [address] 85620- 6788 July, 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 [place] [id number] [place] [address] 35157- 6062 July, [place] [id number] [place] [address] 94862- 4668 July, 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 [place] [id number] [place] [address] 59149- 4779 Jun, [facility] current use of anticoagulant Z79.01 [place] [id number] [place] [address] 91200- 6272 Jun, 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 [place] [id number] [place] [address] 88733- 9452 Jun, 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 [place] [id number] [place] [address] 81661- 5825 Jun, [facility] current use of anticoagulant Z79.01 [place] [id number] [place] [address] 68612- 1991 Jun, Fatigue, unspecified type R53.83 and Non-intractable vomiting with nausea, unspecified vomiting type R11.2 [place] [id number] [place] [address] 98132- 5860 Jun, 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 and Non- intractable vomiting with nausea, unspecified vomiting type R11.2 [place] [id number] [place] [address] 40869- 7078 May, [facility] current use of anticoagulant Z79.01 [place] [id number] [place] [address] 05083- 3306 May, [facility] current use of anticoagulant Z79.01 [place] [address] [id number] [place] [address] 44329- 3425 May, [place] [address] 48545- 3813 May, [facility] current use of anticoagulant Z79.01 [place] [address] [id number] [place] [address] 08713- 8155 May, [facility] current use of anticoagulant Z79.01 [place] [address] [address] [id number] [place] [address] 17907- 4469 May, Fall, initial encounter W19.XXXA ; Toe pain, right M79.674 and Dizziness R42 [place] [address] [address] [id number] [place] [address] 70882- 6331 May, 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 [place] [address] [address] [id number] [place] [address] 79333- 8367 May, 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 [place] [address] [id number] [place] [address] 11021- 8964 May, [facility] current use of anticoagulant Z79.01 [place] [address] [id number] [place] [address] 21656- 0680 Apr, [place] [address] [address] [id number] [place] [address] 98114- 8020 Apr, [facility] current use of anticoagulant Z79.01 [place] [address] [address] [id number] [place] [address] 88998- 0592 Apr, 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 [place] [address] [address] [id number] [place] [address] 68300- 0354 Apr, [facility] current use of anticoagulant Z79.01 ; Hemodialysis -associated hypotension I95.3 ; Varicose veins of left lower extremity I83.92 and Advance directive discussed with patient Z71.89 [place] [address] [address] Mar, [place] [address] [id number] [place] [address] 15717- 8778 Mar, 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 [place] [address] [id number] [place] [address] 69272- 9358 Mar, [facility] current use of anticoagulant Z79.01 [place] [address] [id number] [place] [address] 30327- 6225 Mar, [place] [address] [address] [id number] [place] [address] 77800- 3964 Mar, 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 and Encounter for therapeutic drug level monitoring Z51.81 [place] [address] [id number] [place] [address] 97401- 5961 Mar, Atrial fibrillation, unspecified type I48.91 [place] [address] [address] [id number] [place] [address] 16224- 2186 Feb, Atrial fibrillation, unspecified type I48.91 [place] [address] [id number] [place] [address] 42822- 7774 Feb, Atrial fibrillation, unspecified type I48.91 [place] [address] [id number] [place] [address] 36382- 7748 Feb, Chronic anticoagulation Z79.01 ; Chronic fatigue R53.82 ; Hemodialysis-associated hypotension I95.3 ; 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.2 and End stage renal disease N18.6 [place] [address] [place] [address] 11009- 8067 Feb, [place] [id number] [place] [address] 76978- 8333 Feb, Atrial fibrillation, unspecified type I48.91 [facility] [id number] [place] [address] 34588- 0380 Feb, [facility] [id number] [place] [address] 13536- 1916 Jan, Atrial fibrillation, unspecified type I48.91 [facility] [address] [id number] [place] [address] 28450- 7463 Jan, Atrial fibrillation, unspecified type I48.91 [place] [id number] [place] [address] 72989- 8306 Jan, Atrial fibrillation, unspecified type I48.91 ; Insomnia, unspecified type G47.00 ; End stage renal disease N18.6 and Valvular heart disease I38 [place] [id number] [place] [address] 12376- 6566 Jan, [facility] [address] [id number] [place] [address] 58933- 9783 Jan, Atrial fibrillation, unspecified type I48.91 [place] [id number] [place] [address] 66558- 2705 Jan, [facility] [id number] [place] [address] 39113- 1432 Jan, [facility] [id number] [place] [address] 03102- 4779 Dec, [facility] [address] [place] [address] 80602- 2459 Nov, Hypotension, unspecified hypotension type I95.9 ; Systolic ejection murmur I38 and Insomnia, unspecified type G47.00 [facility] [address] [address]- 0949 Oct, [facility] [id number] [place] [address] 55177- 2174 Oct, [facility] [address] [facility] [id number] [place] [address]- 0113 Aug, Screening for diabetes mellitus Z13.1 ; 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 and Systolic ejection murmur I38 [facility] [address] [facility] [id number] [place] [address]- [address] July, Cough R05 IMMUNIZATIONS No Known Immunizations SOCIAL HISTORY Never Assessed REASON FOR VISIT Shortness of breath f/u--tcuppettRN, --Reports starting to feel a little better PLAN OF CARE Activity Details Follow Up 2 Months with [facility] for [facility] Reason: VITAL SIGNS Height 67 in 2017 Weight 115.4 lbs 2017 Temperature 97.8 degrees Fahrenheit 2017 Heart Rate 70 bpm 2017 Respiratory Rate 20 2017 Oximetry 98 % 2017 BMI 18.07 kg/m2 2017 Blood pressure systolic 138 mmHg 2017 Blood pressure diastolic 60 mmHg 2017 MEDICATIONS Medication Instructions Dosage Frequency Start Date End Date Duration Status Sensipar 90 MG Orally 2 times a day 1 tablet 12h Active Aspirin 81 MG Orally Once a day 1 tablet 24h Jan, 30 day(s) Active Tessalon Perles 100 mg Orally qhs 1 capsule as needed May,Jun 30 days Active Renvela 800 MG Orally Three times a day 3 tablets 8h Active Senna S 8.6-50 MG Orally Once a day 1 tablet in the evening as needed 24h Feb, Jun, 30 day(s) Active Metoprolol Tartrate 25 MG TAKE ONE TABLET BY MOUTH TWICE DAILY WITH FOOD 90 Active Cefdinir Not-Taking RESULTS No Results PROCEDURES Procedure Date Ordered Result Body Site [facility]ISIT ESTABLISHED PATIENT 2017 INSTRUCTIONS MEDICATIONS ADMINISTERED No Known Medications MEDICAL (GENERAL) HISTORY Type Description Date Medical History Decreased Kidney Function Medical History Hypertension Medical History Hyperlipidemia 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 Medical History Dialysis Surgical History tonsillectomy and adenoidectomy Surgical History appendectomy Surgical History Partial Hysterectomy Surgical History left knee replacement Hospitalization History Chest Tube-[facility] 03/2015 Hospitalization History Fluid on lungs-[facility] Hospitalization History ER -shunt malfunction 10/2016 Hospitalization History ER 12/01/2016 Hospitalization History Broken left arm and fractured pelvis 12/2016 Hospitalization History back pain - [facility] ED visit [place] 03/07/17 Hospitalization History ER- [place]- SOA, Fluid Overload 04/12/17 Hospitalization History ER- [place]- Bleeding/Needs stitches 04/20/2017 Hospitalization History ER - Shortness of breath 05/29/17
--- OUTSIDE RECORDS SUMMARY | 2018-04-13 15:59 | XMS REPORT ---
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 Name Role Phone NALLELY SOLIMAN Unavailable PROBLEMS Type Condition ICD9-CM Code [id number] Code Onset Dates Condition Status SNOMED Code Problem Chronic fatigue R53.82 Active 74832284 Problem Recurrent major depressive disorder, in full remission F33.42 Active 519880746 Problem [facility] current use of anticoagulant Z79.01 Active 525815074 Problem Cardiomegaly I51.7 Active 4922141 Problem Psychophysiological insomnia F51.04 Active 026312939 Problem Anxiety state, unspecified F41.1 Active 147556674 Problem Moderate episode of recurrent major depressive disorder F33.1 Active 849789312 Problem Constipation, unspecified constipation type K59.00 Active 66479574 Problem Depressive disorder, not elsewhere classified F32.9 Active 19470432 Problem 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 Active 420979 Problem Insomnia, unspecified type G47.00 Active 521780270 Problem Chronic atrial fibrillation I48.2 Active 002571565 Problem Valvular heart disease I38 Active 981157 Problem End stage renal disease N18.6 Active 02595355 Problem Kidney failure N19 Active 47906611 Problem 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 384454242 Problem Hypotension, unspecified hypotension type I95.9 Active 83168293 Problem 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 977257647 ALLERGIES No Information ENCOUNTERS Encounter Location Date Diagnosis [facility] [place] [address] [facility] [id number] [address] July, Seasonal allergic rhinitis, unspecified trigger J30.2 [facility] [address] [facility] [id number] [address] Jun, Wheezes R06.2 ; Seasonal allergic rhinitis, unspecified trigger J30.2 and Diarrhea, unspecified type R19.7 [facility] [id number] [place] [address] 00678- 4928 May, Cough R05 and Shortness of breath R06.02 [place] [address] [address] May, Adverse effect of unspecified systemic antibiotic, initial encounter T36.95XA [place] [address] [address] 15 May, 2017 Adverse effect of unspecified systemic antibiotic, initial encounter T36.95XA ; Toxic gastroenteritis and colitis K52.1 and Cough R05 [place] [address] [address]- [address] May, Shortness of breath R06.02 and Cough R05 [place] [id number] [place] [address] 16175- 6974 May, [place] [address] [address]- [address] May, Cough R05 ; Kidney failure N19 ; Atrial fibrillation, unspecified type I48.91 and Cardiomegaly I51.7 [place] [id number] [place] [address] 20541- 5505 May, Cough R05 [place] [id number] [place] [address] 63792- 0118 May, [facility] [id number] [place] [address] [id number] Apr, Dental examination Z01.20 [place] [id number] [place] [address] 47717- 4138 Mar, [place] [address] 31651- 9365 Mar, Hemoglobin low D64.9 [place] [id number] [place] [address] 02164- 4430 Feb, Atrial fibrillation, unspecified type I48.91 ; End stage renal disease N18.6 ; Psychophysiological insomnia F51.04 ; Dark stools R19.5 ; Valvular heart disease I38 and Constipation, unspecified constipation type K59.00 [place] [id number] [place] [address] 22304- 2252 Feb, 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.2 [place] [id number] [place] [address] 26055- 5467 Feb, Depressive disorder, not elsewhere classified F32.9 ; Anxiety state, unspecified F41.1 and Cognitive decline R41.89 [place] [id number] [place] [address] 99087- 2167 Jan, Depressive disorder, not elsewhere classified F32.9 ; Anxiety state, unspecified F41.1 and Cognitive decline R41.89 [place] [id number] [place] [address] 47615- 3654 Jan, Moderate episode of recurrent major depressive disorder F33.1 ; 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.2 and Atrial fibrillation, unspecified type I48.91 [place] [id number] [place] [address] 15799- 6337 Jan, Depressive disorder, not elsewhere classified F32.9 ; Anxiety state, unspecified F41.1 and Cognitive decline R41.89 [facility] [place] [address] [place] [id number] Dec, End stage renal disease N18.6 and Valvular heart disease I38 [place] [id number] [place] [address] 97814- 8536 Nov, [place] [id number] [place] [address] 24796- 3298 Nov, 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 [place] [id number] [place] [address] 77222- 5571 07 Nov, 2016 Recurrent major depressive disorder, in full remission F33.42 ; 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.2 ; Atrial fibrillation, unspecified type I48.91 and Shaking chills R68.83 [place] [id number] [place] [address] 48163 2546 Nov, [place] [id number] [place] [address] 19082 2546 Nov, [place] [id number] [place] [address] 14516- 4796 Oct, 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 [place] [id number] [place] [address] 66149 2546 Oct, 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 [place] [id number] [place] [address] 58868 2546 Oct, 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 [place] [address] 46794- 5976 Oct, [facility] current use of anticoagulant Z79.01 [place] [id number] [place] [address] 84773 2543 Oct, 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 [place] [id number] [place] [address] 98090- 1076 Oct, [facility] current use of anticoagulant Z79.01 [place] [id number] [place] [address] 80689- 5106 Oct, 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 [place] [id number] [place] [address] 33571 2546 Sep, [place] [id number] [place] [address] 48250 2546 Sep, 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 [place] [id number] [place] [address] 31082 2546 Sep, [facility] current use of anticoagulant Z79.01 [place] [id number] [place] [address] [phone]- 7256 Sep, 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 [facility] [place] [id number] [place] [address] 283654- 2112 Sep, 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 [facility] [place] [address] [address] Sep, [facility] current use of anticoagulant Z79.01 [facility] [place] [id number] [place] [address] 93060- 8716 Sep, [facility] current use of anticoagulant Z79.01 [facility] [place] [id number] [place] [address] 115326- 0580 Aug, [facility] current use of anticoagulant Z79.01 [facility] [place] [id number] [place] [address] 759164- 8475 Aug, 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 [facility] [place] [id number] [place] [address] 83236- 3339 Aug, 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 [facility] [place] [id number] [place] [address] 24704- 7602 July, [facility] [place] [id number] [place] [address] [id number]- 5356 July, 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 [facility] [place] [address] [address] July, 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 [facility] [place] [address] [address] July, 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 [facility] [place] [address] [address] July, 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 [facility] [place] [id number] [place] [address] 76407- 8066 July, [facility] [place] [address] [address] July, [facility] current use of anticoagulant Z79.01 [facility] [place] [id number] [place] [address] 98629- 2809 July, [facility] [place] [id number] [place] [address] 06107- 4363 July, 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 [facility] [place] [id number] [place] [address] 52567- 3712 Jun, [facility] current use of anticoagulant Z79.01 [place] [id number] [place] [address] 21899- 4354 Jun, [facility] current use of anticoagulant Z79.01 [place] [address] [place] [address] 56001- 6184 Jun, 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 [place] [address] [place] [address] 89930- 3045 Jun, [facility] current use of anticoagulant Z79.01 [place] [id number] [place] [address] 90916- 3025 Jun, Fatigue, unspecified type R53.83 and Non-intractable vomiting with nausea, unspecified vomiting type R11.2 [place] [address] [place] [address] 78998- 2847 Jun, 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 and Non- intractable vomiting with nausea, unspecified vomiting type R11.2 [place] [id number] [place] [address] 47870- 6370 May, [facility] current use of anticoagulant Z79.01 [facility] [place] [id number] [place] [address] 23704- 8656 May, 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 [place] [id number] [place] [address] 14449- 9284 May, [place] [id number] [place] [address] 09415- 5737 May, 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 [place] [id number] [place] [address] 88665- 4224 May, 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 [place] [address] 32895- 9977 May, Fall, initial encounter W19.XXXA ; Toe pain, right M79.674 and Dizziness R42 [place] [address] 99526- 8963 May, 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 [place] [address] 62561- 0316 May, 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 [place] [id number] [place] [address] 38023- 4722 May, 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 [place] [id number] [place] [address] 23103- 4509 Apr, [place] [id number] [place] [address] 10152- 7033 Apr, 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 [place] [id number] [place] [address] 28228- 7573 Apr, 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 [place] [id number] [place] [address] 68431- 8698 Apr, [facility] current use of anticoagulant Z79.01 ; Hemodialysis -associated hypotension I95.3 ; Varicose veins of left lower extremity I83.92 and Advance directive discussed with patient Z71.89 [place] [address] 08960- 7861 Mar, [place] [address] [address] 6829 Mar, 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 [place] [address] [address] 3441 Mar, 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 [place] [id number] [place] [address] 69747- 7013 Mar, [place] [id number] [place] [address] 02831- 5907 Mar, [facility] current use of anticoagulant Z79.01 and Encounter for therapeutic drug level monitoring Z51.81 [place] [id number] [place] [address] 46085- 0418 Mar, Atrial fibrillation, unspecified type I48.91 [place] [id number] [place] [address] 28379- 4073 Feb, Atrial fibrillation, unspecified type I48.91 [place] [id number] [place] [address] 57644- 4754 Feb, Atrial fibrillation, unspecified type I48.91 [place] [address] [place] [address] 90822- 5450 Feb, Chronic anticoagulation Z79.01 ; Chronic fatigue R53.82 ; Hemodialysis-associated hypotension I95.3 ; 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.2 and End stage renal disease N18.6 [place] [address] [address]- 1187 Feb, [place] [id number] [place] [address] 61517- 6244 Feb, Atrial fibrillation, unspecified type I48.91 [place] [address] [place] [address] 88966- 1007 Feb, [place] [id number] [place] [address] 73382- 5821 Jan, Atrial fibrillation, unspecified type I48.91 [facility] [place] [id number] [place] [address] 22402- 0717 Jan, Atrial fibrillation, unspecified type I48.91 [facility] [place] [id number] [place] [address] 30268- 7034 Jan, Atrial fibrillation, unspecified type I48.91 ; Insomnia, unspecified type G47.00 ; End stage renal disease N18.6 and Valvular heart disease I38 [place] [id number] [place] [address] 17216- 4969 Jan, [place] [address] 41385- 8027 Jan, Atrial fibrillation, unspecified type I48.91 [place] [address] 79311- 5906 Jan, [facility] [place] [id number] [place] [address] 51813- 2712 Jan, [place] [id number] [place] [address] 60411- 0485 Dec, [facility] [place] [id number] [place] [address] 18900- 6701 Nov, Hypotension, unspecified hypotension type I95.9 ; Systolic ejection murmur I38 and Insomnia, unspecified type G47.00 [facility] [place] [id number] [place] [address] 22526- 0422 Oct, [facility] [place] [address] 12557- 5040 Oct, [place] [address] 22081- 9032 Aug, Screening for diabetes mellitus Z13.1 ; 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 and Systolic ejection murmur I38 [place] [address] [place] [address]- 9186 July, Cough R05 IMMUNIZATIONS No Known Immunizations [...] left knee replacement Hospitalization History Chest Tube-[place] [facility] 03/2015 Hospitalization History Fluid on lungs-[facility] Hospitalization History ER -shunt malfunction 10/2016 Hospitalization History ER 12/01/2016 Hospitalization History Broken left arm and fractured pelvis 12/2016 Hospitalization History back pain - [facility] ED visit [facility] 03/07/17 Hospitalization History [facility]- [place]- SOA, Fluid Overload 04/12/17 Hospitalization History [facility] [place]- Bleeding/Needs stitches 04/20/2017 Hospitalization History [facility] - Shortness of breath 05/29/17
--- OUTSIDE RECORDS SUMMARY | 2018-04-13 15:59 | XMS REPORT ---
Author Author NALLELY SOLIMAN Organization [facility] Address [address] [place] [address] Care Team Providers Care Log Hooker Name Role Phone NALLELY SOLIMAN Unavailable PROBLEMS Type Condition ICD9-CM Code LEP68-GE Code Onset Dates Condition Status SNOMED Code Problem Chronic fatigue R53.82 Active 12840913 Problem Recurrent major depressive disorder, in full remission F33.42 Active 762384385 Problem [facility] current use of anticoagulant Z79.01 Active 299698583 Problem Cardiomegaly I51.7 Active 9716467 Problem Psychophysiological insomnia F51.04 Active 842994626 Problem Anxiety state, unspecified F41.1 Active 123520197 Problem Moderate episode of recurrent major depressive disorder F33.1 Active 990083195 Problem Constipation, unspecified constipation type K59.00 Active 47448080 Problem Depressive disorder, not elsewhere classified F32.9 Active 41191201 Problem 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 Active 244975 Problem Insomnia, unspecified type G47.00 Active 240175429 Problem Chronic atrial fibrillation I48.2 Active 290777256 Problem Valvular heart disease I38 Active 871906 Problem End stage renal disease N18.6 Active 82329406 Problem Kidney failure N19 Active 49799277 Problem 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 079737267 Problem Hypotension, unspecified hypotension type I95.9 Active 18802650 Problem 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 313635077 ALLERGIES Substance Reaction Event Type Date Status Zantac Unknown Drug Allergy May, Active Tetracycline HCl Unknown Drug Allergy May, Active Sulfamethoxazole-Trimethoprim Unknown Drug Allergy May, Active Penicillin V Potassium Unknown Drug Allergy May, Active Betadine Unknown Drug Allergy May, Active narcotics avoid them Non Drug Allergy May, Active ENCOUNTERS Encounter Location Date Diagnosis [facility] [address] [facility] [id number] [address] July, Seasonal allergic rhinitis, unspecified trigger J30.2 [facility] [address] [place] [address] Jun, Wheezes R06.2 ; Seasonal allergic rhinitis, unspecified trigger J30.2 and Diarrhea, unspecified type R19.7 [facility] [address] [id number] [place] [address] 91890- 7639 May, Cough R05 and Shortness of breath R06.02 [facility] [address] [address] May, Adverse effect of unspecified systemic antibiotic, initial encounter T36.95XA [place] [address] [address] 15 May, 2017 Adverse effect of unspecified systemic antibiotic, initial encounter T36.95XA ; Toxic gastroenteritis and colitis K52.1 and Cough R05 [facility] [address] [address] May, Shortness of breath R06.02 and Cough R05 [place] [id number] [place] [address] 21687- 7722 May, [facility] [address] [address] May, Cough R05 ; Kidney failure N19 ; Atrial fibrillation, unspecified type I48.91 and Cardiomegaly I51.7 [facility] [id number] [place] [address] 74594- 5677 May, Cough R05 [facility] [id number] [place] [address] 17967- 3963 May, [facility] [id number] [place] [address] [id number] Apr, Dental examination Z01.20 [facility] [id number] [place] [address] 52483- 4444 Mar, [facility] [id number] [place] [address] 16486- 0551 Mar, Hemoglobin low D64.9 [place] [address] [address]- [address] Feb, Atrial fibrillation, unspecified type I48.91 ; End stage renal disease N18.6 ; Psychophysiological insomnia F51.04 ; Dark stools R19.5 ; Valvular heart disease I38 and Constipation, unspecified constipation type K59.00 [facility] [id number] [place] [address] 66696- 5241 Feb, 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.2 [place] [address] 58[address]- [address] Feb, Depressive disorder, not elsewhere classified F32.9 ; Anxiety state, unspecified F41.1 and Cognitive decline R41.[address] [address] Jan, Depressive disorder, not elsewhere classified F32.9 ; Anxiety state, unspecified F41.1 and Cognitive decline R41.89 [facility] [id number] [place] [address] 51872- 6509 Jan, Moderate episode of recurrent major depressive disorder F33.1 ; 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.2 and Atrial fibrillation, unspecified type I48.91 [facility] [place] [id number] [place] [address] 42042- 4591 Jan, Depressive disorder, not elsewhere classified F32.9 ; Anxiety state, unspecified F41.1 and Cognitive decline R41.89 [facility] [address] [place] [id number] Dec, End stage renal disease N18.6 and Valvular heart disease I38 [place] [id number] [place] [address] 25664- 9554 Nov, [place] [id number] [place] [address] 02777- 7089 Nov, [facility] current use of anticoagulant Z79.01 [facility] [address] [place] [address] 98419- 7377 07 Nov, 2016 Recurrent major depressive disorder, in full remission F33.42 ; 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.2 ; Atrial fibrillation, unspecified type I48.91 and Shaking chills R68.83 [facility] [id number] [place] [address] 25890- 6098 Nov, [facility] [id number] [place] [address] 54235- 3911 Nov, [facility] [place] [id number] [place] [address] 25456- 8555 Oct, [facility] current use of anticoagulant Z79.01 [place] [id number] [place] [address] 30603- 0922 Oct, [facility] current use of anticoagulant Z79.01 [place] [id number] [place] [address] 57829- 8363 Oct, [employer] [facility] current use of anticoagulant Z79.01 [facility] [id number] [place] [address] 83515- 5542 Oct, [facility] current use of anticoagulant Z79.01 [place] [id number] [place] [address] 37193- 5935 Oct, [facility] current use of anticoagulant Z79.01 [place] [id number] [place] [address] 81428- 6435 Oct, [facility] current use of anticoagulant Z79.01 [place] [id number] [place] [address] 48682- 8618 Oct, [facility] current use of anticoagulant Z79.01 [place] [id number] [place] [address] 84434- 9559 Sep, [facility] [id number] [place] [address] 09681- 1148 Sep, [employer] [facility] current use of anticoagulant Z79.01 [facility] [address] [address] Sep, [facility] current use of anticoagulant Z79.01 [facility] [address] [address] 2546 Sep, [facility] current use of anticoagulant Z79.01 [facility] [id number] [place] [address] 35438 2546 Sep, [facility] current use of anticoagulant Z79.01 [facility] [address] [address] 2546 Sep, [employer] [facility] current use of anticoagulant Z79.01 [facility] [address] [place] [address] 48575 2546 Sep, [facility] current use of anticoagulant Z79.01 [place] [id number] [place] [address] 38518- 6783 Aug, [employer] [facility] current use of anticoagulant Z79.01 [facility] [address] [address] Aug, [employer] [facility] current use of anticoagulant Z79.01 [facility] [address] [address] Aug, [facility] current use of anticoagulant Z79.01 [place] [address] [address] July, [facility] [address] [place] [address] 98185 2545 July, [employer] [facility] current use of anticoagulant Z79.01 [facility] [address] [address] 2546 July, [facility] current use of anticoagulant Z79.01 [facility] [address] [address] 25[address] July, [employer] [facility] current use of anticoagulant Z79.01 [place] [address] [address] July, [facility] current use of anticoagulant Z79.01 [place] [id number] [place] [address] 58511- 7528 July, [place] [id number] [place] [address] 85081- 2354 July, [employer] [facility] current use of anticoagulant Z79.01 [place] [id number] [place] [address] 67432- 7573 July, [place] [id number] [place] [address] 19376- 9867 July, [employer] [facility] current use of anticoagulant Z79.01 [place] [id number] [place] [address] 03753- 0793 Jun, [facility] current use of anticoagulant Z79.01 [place] [id number] [place] [address] 14113- 1389 Jun, [employer] [facility] current use of anticoagulant Z79.01 [place] [id number] [place] [address] 96679- 2599 Jun, [employer] [facility] current use of anticoagulant Z79.01 [place] [id number] [place] [address] 43839- 8765 Jun, [facility] current use of anticoagulant Z79.01 [place] [id number] [place] [address] 77049- 5999 Jun, Fatigue, unspecified type R53.83 and Non-intractable vomiting with nausea, unspecified vomiting type R11.2 [place] [id number] [place] [address] 07675- 2370 Jun, [employer] [facility] current use of anticoagulant Z79.01 and Non- intractable vomiting with nausea, unspecified vomiting type R11.2 [place] [id number] [place] [address] 79121- 8090 May, [facility] current use of anticoagulant Z79.01 [place] [id number] [place] [address] 13057- 4668 May, [facility] current use of anticoagulant Z79.01 [place] [id number] [place] [address] 80674- 8937 May, [place] [address] 92586- 0862 May, [facility] current use of anticoagulant Z79.01 [place] [id number] [place] [address] 66411- 8111 May, [facility] current use of anticoagulant Z79.01 [place] [id number] [place] [address] 40433- 0936 May, Fall, initial encounter W19.XXXA ; Toe pain, right M79.674 and Dizziness R42 [place] [id number] [place] [address] 76977- 7310 May, [employer] [facility] current use of anticoagulant Z79.01 [place] [id number] [place] [address] 44898- 6433 May, [employer] [facility] current use of anticoagulant Z79.01 [place] [id number] [place] [address] 22030- 9742 May, [facility] current use of anticoagulant Z79.01 [place] [id number] [place] [address] 14737- 2489 Apr, [place] [id number] [place] [address] 08329- 7548 Apr, [facility] current use of anticoagulant Z79.01 [place] [id number] [place] [address] 56893- 4036 Apr, [employer] [facility] current use of anticoagulant Z79.01 [place] [id number] [place] [address] 32485- 1935 Apr, [facility] current use of anticoagulant Z79.01 ; Hemodialysis -associated hypotension I95.3 ; Varicose veins of left lower extremity I83.92 and Advance directive discussed with patient Z71.89 [place] [address] [address]- [address] Mar, [place] [id number] [place] [address] 91920- 4585 Mar, [employer] [facility] current use of anticoagulant Z79.01 [place] [id number] [place] [address] 13156- 2960 Mar, [facility] current use of anticoagulant Z79.01 [place] [id number] [place] [address] 51032- 1772 Mar, [place] [id number] [place] [address] 08704- 0455 Mar, [employer] [facility] current use of anticoagulant Z79.01 and Encounter for therapeutic drug level monitoring Z51.81 [place] [id number] [place] [address] 73182- 9201 Mar, Atrial fibrillation, unspecified type I48.91 [place] [id number] [place] [address] 78645- 0341 Feb, Atrial fibrillation, unspecified type I48.91 [place] [id number] [place] [address] 29096- 4614 Feb, Atrial fibrillation, unspecified type I48.91 [place] [id number] [place] [address] 42938- 1452 Feb, Chronic anticoagulation Z79.01 ; Chronic fatigue R53.82 ; Hemodialysis-associated hypotension I95.3 ; 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.2 and End stage renal disease N18.6 [place] [address] [place] [address] 90738- 1474 Feb, [place] [id number] [place] [address] 53157- 5378 Feb, Atrial fibrillation, unspecified type I48.91 [facility] [id number] [place] [address] 36315- 1144 Feb, [facility] [id number] [place] [address] 30523- 3118 Jan, Atrial fibrillation, unspecified type I48.91 [facility] [id number] [place] [address] 58926- 0688 Jan, Atrial fibrillation, unspecified type I48.91 [place] [id number] [place] [address] 91787- 9766 Jan, Atrial fibrillation, unspecified type I48.91 ; Insomnia, unspecified type G47.00 ; End stage renal disease N18.6 and Valvular heart disease I38 [place] [id number] [place] [address] 78610- 2715 Jan, [facility] [id number] [place] [address] 55686- 4746 Jan, Atrial fibrillation, unspecified type I48.91 [place] [id number] [place] [address] 27280- 6941 Jan, [facility] [id number] [place] [address] 77029- 0061 Jan, [facility] [id number] [place] [address] 67559- 1010 Dec, [facility] [address] [place] [address] 45410- 5143 Nov, Hypotension, unspecified hypotension type I95.9 ; Systolic ejection murmur I38 and Insomnia, unspecified type G47.00 [facility] [address] [address]- 4130 Oct, [facility] [id number] [place] [address] 58958- 3000 Oct, [facility] [address] [facility] [id number] [place] [address]- [address] 07 Aug, 2015 Screening for diabetes mellitus Z13.1 ; 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 and Systolic ejection murmur I38 [facility] [address] [facility] [id number] [place] [address]- [address] July, Cough R05 IMMUNIZATIONS No Known Immunizations SOCIAL HISTORY Never Assessed REASON FOR VISIT ER Follow up. Records requested , Not feeling good. Still having fevers- keeping it down with tylenol/ibuprofen. Very fatigued. Very poor appetite - KATHRYN Rowe PLAN OF CARE Activity Details Follow Up 2 - 3 Days with Josefa Reason: VITAL SIGNS Height 67 in 2017-05-31 Weight 119 lbs 2017-05-31 Temperature 97.9 degrees Fahrenheit 2017-05-31 Heart Rate 72 bpm 2017-05-31 Respiratory Rate 22 2017-05-31 Oximetry 92 % 2017-05-31 BMI 18.64 kg/m2 2017-05-31 Blood pressure systolic 140 mmHg 2017-05-31 Blood pressure diastolic 80 mmHg 2017-05-31 MEDICATIONS Medication Instructions Dosage Frequency Start Date End Date Duration Status Senna S 8.6-50 MG Orally Once a day 1 tablet in the evening as needed 24h Feb, Jun, 30 day(s) Active Aspirin 81 MG Orally Once a day 1 tablet 24h 13 Jan, 2017 30 day(s) Active Sensipar 90 MG Orally 2 times a day 1 tablet 12h Active Renvela 800 MG Orally Three times a day 3 tablets 8h Active Metoprolol Tartrate 25 MG TAKE ONE TABLET BY MOUTH TWICE DAILY WITH FOOD 90 Active RESULTS Name Result Date Reference Range Xray : Chest 2 View (IN HOUSE) 2017-05-31 PROCEDURES Procedure Date Ordered Result Body Site X-RAY EXAM CHEST 2 VIEWS May 31, 2017 [facility] VISIT ESTABLISHED PATIENT May 31, 2017 INSTRUCTIONS MEDICATIONS ADMINISTERED No Known Medications MEDICAL (GENERAL) HISTORY Type Description Date Medical History Decreased Kidney Function Medical History Hypertension Medical History Hyperlipidemia Medical History [employer] use of coumadin Medical History Dialysis Surgical History tonsillectomy and adenoidectomy Surgical History appendectomy Surgical History Partial Hysterectomy Surgical History left knee replacement Hospitalization History Chest Tube[facility] 03/2015 Hospitalization History Fluid on lungs-[facility] Hospitalization History ER -shunt malfunction 10/2016 Hospitalization History ER 12/01/2016 Hospitalization History Broken left arm and fractured pelvis 12/2016 Hospitalization History back pain - [facility] ED visit [facility] [place], operated by [facility] 03/07/17 Hospitalization History ER- [facility]- SOA, Fluid Overload 04/12/17 Hospitalization History ER- [facility]- Bleeding/Needs stitches 04/20/2017 Hospitalization History ER - Shortness of breath 05/29/17
--- OUTSIDE RECORDS SUMMARY | 2018-04-13 15:59 | XMS REPORT ---
Author Author NALLELY SOLIMAN Organization 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 Name Role Phone NALLELY SOLIMAN Unavailable PROBLEMS Type Condition ICD9-CM Code [id number] Code Onset Dates Condition Status SNOMED Code Problem Chronic fatigue R53.82 Active 61104907 Problem Recurrent major depressive disorder, in full remission F33.42 Active 349663127 Problem senior living current use of anticoagulant Z79.01 Active 512499818 Problem Cardiomegaly I51.7 Active 3226473 Problem Psychophysiological insomnia F51.04 Active 874100343 Problem Anxiety state, unspecified F41.1 Active 199607175 Problem Moderate episode of recurrent major depressive disorder F33.1 Active 095337108 Problem Constipation, unspecified constipation type K59.00 Active 33802642 Problem Depressive disorder, not elsewhere classified F32.9 Active 54331031 Problem 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 [address] [facility] [id number], [place] [address] July, Seasonal allergic rhinitis, unspecified trigger J30.2 [facility] [address] [facility] [id number], [place] [address] Jun, Wheezes R06.2 ; Seasonal allergic rhinitis, unspecified trigger J30.2 and Diarrhea, unspecified type R19.7 [place] [id number] [place] [address] 95942- 6787 May, Cough R05 and Shortness of breath R06.02 [place] [address] [address]- [address] May, Adverse effect of unspecified systemic antibiotic, initial encounter T36.95XA [place] [address] [address]- [address] 15 May, 2017 Adverse effect of unspecified systemic antibiotic, initial encounter T36.95XA ; Toxic gastroenteritis and colitis K52.1 and Cough R05 [place] [address] 80106- 1104 May, Shortness of breath R06.02 and Cough R05 [place] [id number] [place] [address] 33183- 9335 May, [place] [address] [address]40- 3281 May, Cough R05 ; Kidney failure N19 ; Atrial fibrillation, unspecified type I48.91 and Cardiomegaly I51.7 [place] [id number] [place] [address] 85869- 6618 May, Cough R05 [place] [id number] [place] [address] 29895- 0474 May, [facility] [id number] [place] [address] [id number] Apr, Dental examination Z01.20 [place] [id number] [place] [address] 69993- 9036 Mar, [place] [address] 97795- 7926 Mar, Hemoglobin low D64.9 [place] [id number] [place] [address] 96774- 7018 Feb, Atrial fibrillation, unspecified type I48.91 ; End stage renal disease N18.6 ; Psychophysiological insomnia F51.04 ; Dark stools R19.5 ; Valvular heart disease I38 and Constipation, unspecified constipation type K59.00 [place] [address] [place] [address] 71138- 6684 Feb, 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.2 [place] [id number] [place] [address] 49178- 7018 Feb, Depressive disorder, not elsewhere classified F32.9 ; Anxiety state, unspecified F41.1 and Cognitive decline R41.89 [place] [id number] [place] [address] 63451- 4224 Jan, Depressive disorder, not elsewhere classified F32.9 ; Anxiety state, unspecified F41.1 and Cognitive decline R41.89 [place] [id number] [place] [address] 28587- 0566 Jan, Moderate episode of recurrent major depressive disorder F33.1 ; 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.2 and Atrial fibrillation, unspecified type I48.91 [place] [id number] [place] [address] 13685- 2185 Jan, Depressive disorder, not elsewhere classified F32.9 ; Anxiety state, unspecified F41.1 and Cognitive decline R41.89 [facility] [address] [place] [id number] Dec, End stage renal disease N18.6 and Valvular heart disease I38 [place] [id number] [place] [address] 86654- 9454 Nov, [place] [id number] [place] [address] 50159- 7282 Nov, 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 Z79.01 [place] [id number] [place] [address] 32565- 5184 07 Nov, 2016 Recurrent major depressive disorder, in full remission F33.42 ; 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.2 ; Atrial fibrillation, unspecified type I48.91 and Shaking chills R68.83 [place] [id number] [place] [address] 51727 2546 Nov, [place] [id number] [place] [address] 14915 2546 Nov, [place] [id number] [place] [address] 94598- 6746 Oct, 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 Z79.01 [place] [id number] [place] [address] 48747 2546 Oct, 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 Z79.01 [place] [id number] [place] [address] 47340 2546 Oct, 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 Z79.01 [place] [address] 02779- 1076 Oct, senior living current use of anticoagulant Z79.01 [place] [id number] [place] [address] 61748 2547 Oct, 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 Z79.01 [place] [id number] [place] [address] 49637- 9939 Oct, senior living current use of anticoagulant Z79.01 [place] [id number] [place] [address] 51745- 2846 Oct, 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 [address] [address] Sep, senior living current 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 [id number] [place] [address] 69921- 0803 Sep, senior living current 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 [id number] [place] [address] 127104- 6171 Aug, senior living current 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 [id number] [place] [address] 24829- 3711 July, 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 [address] [address] July, 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 [address] [address] 9[address] July, 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 [address] [address] July, 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 [id number] [place] [address] 48560- 6575 July, [facility] [address] [address] July, senior living current 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 [id number] [place] [address] 84664- 8062 July, 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 Z79.01 [place] [id number] [place] [address] 72350- 5776 Jun, senior living current use of anticoagulant Z79.01 [place] [address] [place] [address] 24073- 0973 Jun, Fatigue, unspecified type R53.83 and Non-intractable vomiting with nausea, unspecified vomiting type R11.2 [place] [address] [place] [address] 65333- 0307 Jun, 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 Z79.01 and Non- intractable vomiting with nausea, unspecified vomiting type R11.2 [place] [id number] [place] [address] 65920- 8651 May, senior living current 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 Z79.01 [place] [address] 00942- 4588 May, Fall, initial encounter W19.XXXA ; Toe pain, right M79.674 and Dizziness R42 [place] [address] 71056- 0948 May, 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 Z79.01 [place] [address] 38723- 1815 May, 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 Z79.01 [place] [id number] [place] [address] 65753- 1344 May, 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 Z79.01 [place] [id number] [place] [address] 70255- 4252 Apr, [place] [id number] [place] [address] 73872- 3531 Apr, 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 Z79.01 [place] [id number] [place] [address] 25032- 4105 Apr, 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 Z79.01 [place] [id number] [place] [address] 10956- 4651 Apr, senior living current use of anticoagulant Z79.01 ; Hemodialysis -associated hypotension I95.3 ; Varicose veins of left lower extremity I83.92 and Advance directive discussed with patient Z71.89 [place] [address] 25019- 5728 Mar, [place] [address] [address]- 6278 Mar, 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 Z79.01 [place] [address] [address]- 0260 Mar, 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 Z79.01 [place] [id number] [place] [address] 76217- 6219 Mar, [place] [id number] [place] [address] 36122- 7815 Mar, senior living current use of anticoagulant Z79.01 and Encounter for therapeutic drug level monitoring Z51.81 [place] [id number] [place] [address] 34331- 6441 Mar, Atrial fibrillation, unspecified type I48.91 [place] [id number] [place] [address] 25791- 6480 Feb, Atrial fibrillation, unspecified type I48.91 [place] [id number] [place] [address] 17977- 1961 Feb, Atrial fibrillation, unspecified type I48.91 [place] [address] [place] [address] 94434- 2651 Feb, Chronic anticoagulation Z79.01 ; Chronic fatigue R53.82 ; Hemodialysis-associated hypotension I95.3 ; 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.2 and End stage renal disease N18.6 [place] [address] [address]- 9603 Feb, [place] [id number] [place] [address] 94468- 1020 Feb, Atrial fibrillation, unspecified type I48.91 [place] [id number] [place] [address] 59953- 3644 Feb, [place] [id number] [place] [address] 53255- 3261 Jan, Atrial fibrillation, unspecified type I48.91 [facility] [id number] [place] [address] 88309- 3165 Jan, Atrial fibrillation, unspecified type I48.91 [facility] [id number] [place] [address] 12926- 7659 Jan, Atrial fibrillation, unspecified type I48.91 ; Insomnia, unspecified type G47.00 ; End stage renal disease N18.6 and Valvular heart disease I38 [place] [id number] [place] [address] 38815- 5762 Jan, [place] [address] 22310- 0722 Jan, Atrial fibrillation, unspecified type I48.91 [place] [address] 68162- 9352 Jan, [facility] [id number] [place] [address] 41814- 1086 Jan, [place] [id number] [place] [address] 76441- 7941 Dec, [facility] [id number] [place] [address] 70454- 5851 Nov, Hypotension, unspecified hypotension type I95.9 ; Systolic ejection murmur I38 and Insomnia, unspecified type G47.00 [facility] [id number] [place] [address] 12840- 9704 Oct, [facility] [address] 75369- 3611 Oct, [place] [address] 39197- 8065 Aug, Screening for diabetes mellitus Z13.1 ; 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 and Systolic ejection murmur I38 [place] [address] [place] [address]- 4452 July, Cough R05 IMMUNIZATIONS No Known Immunizations SOCIAL HISTORY Never Assessed REASON FOR VISIT Appt PLAN OF CARE VITAL SIGNS MEDICATIONS Unknown Medications RESULTS No Results PROCEDURES No Known procedures INSTRUCTIONS MEDICATIONS ADMINISTERED No Known Medications MEDICAL (GENERAL) HISTORY Type Description Date Medical History Decreased Kidney Function Medical History Hypertension Medical History Hyperlipidemia Medical History senior living use of coumadin Medical History Dialysis Surgical History tonsillectomy and adenoidectomy Surgical History appendectomy Surgical History Partial Hysterectomy Surgical History left knee replacement Hospitalization History Chest Tube-[facility] 03/2015 Hospitalization History Fluid on lungs-[facility] Hospitalization History ER -shunt malfunction 10/2016 Hospitalization History ER 12/01/2016 Hospitalization History Broken left arm and fractured pelvis 12/2016 Hospitalization History back pain - [facility] ED visit [facility] 03/07/17 Hospitalization History [facility]- SOA, Fluid Overload 04/12/17 Hospitalization History [facility]- Bleeding/Needs stitches 04/20/2017 Hospitalization History [facility] - Shortness of breath 05/29/17
--- OUTSIDE RECORDS SUMMARY | 2018-04-13 16:00 | XMS REPORT ---
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 Name Role Phone NALLELY SOLIMAN Unavailable PROBLEMS Type Condition ICD9-CM Code UIA29-AU Code Onset Dates Condition Status SNOMED Code Problem Chronic fatigue R53.82 Active 06197501 Problem Recurrent major depressive disorder, in full remission F33.42 Active 692007458 Problem assisted current use of anticoagulant Z79.01 Active 510175279 Problem Cardiomegaly I51.7 Active 0878253 Problem Psychophysiological insomnia F51.04 Active 865017985 Problem Anxiety state, unspecified F41.1 Active 711302093 Problem Moderate episode of recurrent major depressive disorder F33.1 Active 683486645 Problem Constipation, unspecified constipation type K59.00 Active 11565823 Problem Depressive disorder, not elsewhere classified F32.9 Active 74508861 Problem 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 Active 209580 Problem Insomnia, unspecified type G47.00 Active 716098866 Problem Chronic atrial fibrillation I48.2 Active 554887462 Problem Valvular heart disease I38 Active 892231 Problem End stage renal disease N18.6 Active 66422456 Problem Kidney failure N19 Active 12265410 Problem 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 027308881 Problem Hypotension, unspecified hypotension type I95.9 Active 74467760 Problem 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 [id number] ALLERGIES No Information ENCOUNTERS Encounter Location Date Diagnosis [facility] [id number] [address] May, Cough R05 and Shortness of breath R06.02 [facility] [id number] [address] May, Adverse effect of unspecified systemic antibiotic, initial encounter T36.95XA [facility] [address] [place] [address] May, Adverse effect of unspecified systemic antibiotic, initial encounter T36.95XA ; Toxic gastroenteritis and colitis K52.1 and Cough R05 [address] [address] [address] [id number] May, Shortness of breath R06.02 and Cough R05 [place] [address] [address] May, [place] [address] [address] May, Cough R05 ; Kidney failure N19 ; Atrial fibrillation, unspecified type I48.91 and Cardiomegaly I51.[address] [address] May, Fever, unspecified fever cause R50.9 and Cough R05 [address] [address] May, [facility] [address] [id number] Apr, Dental examination Z01.20 [place] [address] [address] Mar, [place] [id number] [place] [address] Mar, Hemoglobin low D64.[address] [address] Feb, Atrial fibrillation, unspecified type I48.91 ; End stage renal disease N18.6 ; Psychophysiological insomnia F51.04 ; Dark stools R19.5 ; Valvular heart disease I38 and Constipation, unspecified constipation type K59.00 [place] [address] [address] Feb, 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.2 [address] [place] [address] Feb, Depressive disorder, not elsewhere classified F32.9 ; Anxiety state, unspecified F41.1 and Cognitive decline R41.89 [place] [id number] [place] [address]83- 3512 Jan, Depressive disorder, not elsewhere classified F32.9 ; Anxiety state, unspecified F41.1 and Cognitive decline R41.89 [place] [id number] [place] [address] 49344- 6530 Jan, Moderate episode of recurrent major depressive disorder F33.1 ; 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.2 and Atrial fibrillation, unspecified type I48.91 [place] [id number] [place] [address]- 4804 Jan, Depressive disorder, not elsewhere classified F32.9 ; Anxiety state, unspecified F41.1 and Cognitive decline R41.89 [facility] [address] [place], [place] [id number] Dec, End stage renal disease N18.6 and Valvular heart disease I38 [place] [id number] [place] [address] 7[address]99- [address] Nov, [place] [id number] [place] [address] 94394- 1197 Nov, assisted current use of anticoagulant Z79.01 [place] [id number] [place] [address] 90681- 1906 Nov, Recurrent major depressive disorder, in full remission F33.42 ; 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.2 ; Atrial fibrillation, unspecified type I48.91 and Shaking chills R68.83 [place] [id number] [place] [address] 56077- 6078 Nov, [place] [id number] [place] [address] 76856- 9558 Nov, [place] [address] [address] Oct, assisted current use of anticoagulant Z79.01 [facility] [address] [place] [address] 23166- 3896 Oct, assisted current use of anticoagulant Z79.01 [facility] [id number] [place] [address] 82944- 5256 Oct, 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 card tender current use of anticoagulant Z79.01 [facility] [id number] [place] [address]34 2546 Oct, 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 card tender current use of anticoagulant Z79.01 [facility] [id number] [place] [address] 13415- 4344 Oct, assisted current use of anticoagulant Z79.01 [facility] [id number] [place] [address] 62616- 9926 Oct, assisted current use of anticoagulant Z79.01 [facility] [id number] [place] [address] 61466- 4074 Oct, assisted current use of anticoagulant Z79.01 [facility] [id number] [place] [address] 97010- 8336 Sep, [facility] [id number] [place] [address] 46822- 0591 Sep, assisted current use of anticoagulant Z79.01 [facility] [id number] [place] [address] 60018- 2546 Sep, assisted current use of anticoagulant Z79.01 [facility] [address] [place] [address] 20[address] 2546 Sep, assisted current use of anticoagulant Z79.01 [facility] [id number] [place] [address] 48491- 2546 Sep, assisted current use of anticoagulant Z79.01 [facility] [address] [place] [address] 48731- 2546 Sep, assisted current use of anticoagulant Z79.01 [facility] [address] [address] Sep, 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 card tender current use of anticoagulant Z79.01 [facility] [address] [address] Aug, assisted current use of anticoagulant Z79.01 [facility] [address] [place] [address] 08551- 8144 Aug, assisted current use of anticoagulant Z79.01 [facility] [address] [place] [address] 828547- 7804 Aug, assisted current use of anticoagulant Z79.01 [facility] [id number] [place] [address] 26636- 4786 July, [facility] [id number] [place] [address] 84205- 4516 July, assisted current use of anticoagulant Z79.01 [facility] [address] [address] July, assisted current use of anticoagulant Z79.01 [facility] [address] [address] July, 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 card tender current use of anticoagulant Z79.01 [facility] [address] [address] July, assisted current use of anticoagulant Z79.01 [facility] [address] [address] July, [facility] [id number] [address] July, 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 card tender current use of anticoagulant Z79.01 [facility] [address] [address] July, [facility] [id number] [address] July, assisted current use of anticoagulant Z79.01 [address] [id number] [place] [address] 74361- 2936 Jun, assisted current use of anticoagulant Z79.01 [place] [id number] [place] [address] 900690- 8306 Jun, assisted current use of anticoagulant Z79.01 [place] [id number] [place] [address] 81162- 0466 Jun, 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 card tender current use of anticoagulant Z79.01 [place] [id number] [place] [address] 220490- 0916 Jun, assisted current use of anticoagulant Z79.01 [place] [id number] [place] [address] 37075- 7356 Jun, Fatigue, unspecified type R53.83 and Non-intractable vomiting with nausea, unspecified vomiting type R11.2 [place] [address] [place] [address] 65156- 7625 Jun, assisted current use of anticoagulant Z79.01 and Non- intractable vomiting with nausea, unspecified vomiting type R11.2 [place] [address] [place] [address] 55236- 4023 May, assisted current use of anticoagulant Z79.01 [address] [address] [place] [address] 765993- 1446 May, assisted current use of anticoagulant Z79.01 [address] [address] [place] [address] 81319- 4906 May, [place] [id number] [place] [address] 222501- 7746 May, assisted current use of anticoagulant Z79.01 [address] [id number] [place] [address] 806582- 5670 May, assisted current use of anticoagulant Z79.01 [place] [address] [place] [address] 16638- 1189 May, Fall, initial encounter W19.XXXA ; Toe pain, right M79.674 and Dizziness R42 [address] [id number] [place] [address] 99234- 7626 May, 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 card tender current use of anticoagulant Z79.01 [place] [id number] [place] [address] 24921- 1389 May, 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 card tender current use of anticoagulant Z79.01 [place] [id number] [place] [address] 73396- 1311 May, assisted current use of anticoagulant Z79.01 [place] [id number] [place] [address] 96669- 7158 Apr, [place] [id number] [place] [address] 36670- 4244 Apr, 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 card tender current use of anticoagulant Z79.01 [address] [id number] [place] [address] 05809- 5186 Apr, assisted current use of anticoagulant Z79.01 [place] [id number] [place] [address] 04121- 3821 Apr, 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 card tender current use of anticoagulant Z79.01 ; Hemodialysis -associated hypotension I95.3 ; Varicose veins of left lower extremity I83.92 and Advance directive discussed with patient Z71.89 [place] [id number] [place] [address] 65142- 2201 Mar, [place] [id number] [place] [address] 67472- 6493 Mar, 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 card tender current use of anticoagulant Z79.01 [place] [id number] [place] [address] 95005- 5702 Mar, assisted current use of anticoagulant Z79.01 [place] [address] [address]- [address] Mar, [place] [id number] [place] [address] 13089- 2491 Mar, assisted current use of anticoagulant Z79.01 and Encounter for therapeutic drug level monitoring Z51.81 [place] [id number] [place] [address] 26418- 9966 Mar, Atrial fibrillation, unspecified type I48.91 [place] [id number] [place] [address] 69168- 4835 Feb, Atrial fibrillation, unspecified type I48.91 [place] [id number] [place] [address] 37197- 0239 Feb, Atrial fibrillation, unspecified type I48.91 [place] [id number] [place] [address] 20106- 1010 Feb, Chronic anticoagulation Z79.01 ; Chronic fatigue R53.82 ; Hemodialysis-associated hypotension I95.3 ; 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.2 and End stage renal disease N18.6 [address] [address] [place] [address] 89868- 0621 Feb, [place] [address] [place] [address] 49896- 3733 Feb, Atrial fibrillation, unspecified type I48.91 [address] [address] [place] [address] 01556- 1277 Feb, [address] [address] [place] [address] 94904- 1150 Jan, Atrial fibrillation, unspecified type I48.91 [address] [address]- 5367 Jan, Atrial fibrillation, unspecified type I48.91 [address] [address] [place] [address] 79860- 6857 Jan, Atrial fibrillation, unspecified type I48.91 ; Insomnia, unspecified type G47.00 ; End stage renal disease N18.6 and Valvular heart disease I38 [place] [id number] [place] [address] 81542- 0743 Jan, [address] [id number] [place] [address] 92646- 1698 Jan, Atrial fibrillation, unspecified type I48.91 [place] [address] 03805- 2283 Jan, [place] [address] 17301- 2130 Jan, [place] [address] 13031- 1421 Dec, [place] [address] 49085- 7199 Nov, Hypotension, unspecified hypotension type I95.9 ; Systolic ejection murmur I38 and Insomnia, unspecified type G47.00 [place] [id number] [place] [address] 18731- 8268 Oct, [place] [id number] [place] [address] 54001- 3901 Oct, [place] [id number] [place] [address] 00985- 1374 Aug, Screening for diabetes mellitus Z13.1 ; 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 and Systolic ejection murmur I38 [place] [id number] [place] [address] 27067- 2497 July, Cough R05 IMMUNIZATIONS No Known Immunizations SOCIAL HISTORY Never Assessed REASON FOR VISIT Returned call PLAN OF CARE VITAL SIGNS MEDICATIONS No Known Medications RESULTS No Results PROCEDURES No Known procedures INSTRUCTIONS MEDICATIONS ADMINISTERED No Known Medications MEDICAL (GENERAL) HISTORY Type Description Date Medical History Decreased Kidney Function Medical History Hypertension Medical History Hyperlipidemia Medical History 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 card tender use of coumadin Medical History Dialysis Surgical History tonsillectomy and adenoidectomy Surgical History appendectomy Surgical History Partial Hysterectomy Surgical History left knee replacement Hospitalization History Chest Tube-[facility] 03/2015 Hospitalization History Fluid on lungs-[facility] Hospitalization History ER -shunt malfunction 10/2016 Hospitalization History ER 12/01/2016 Hospitalization History Broken left arm and fractured pelvis 12/2016 Hospitalization History back pain - [facility] ED [place] 03/07/17 Hospitalization History [facility]- [place]- [facility], Fluid Overload 04/12/17 Hospitalization History ER- [place]- Bleeding/Needs stitches 04/20/2017 Hospitalization History ER - Shortness of breath 05/29/17
--- OUTSIDE RECORDS SUMMARY | 2018-04-13 16:00 | XMS REPORT ---
Author Author CHALINO MCDONALD Organization [facility] Address [address] [place] [address] Care Team Providers Care Associate Professor Of Music Name Role Phone CHALINO MCDONALD Unavailable PROBLEMS Type Condition ICD9-CM Code PHL54-DL Code Onset Dates Condition Status SNOMED Code Problem Chronic fatigue R53.82 Active 03505799 Problem Recurrent major depressive disorder, in full remission F33.42 Active 717973017 Problem retirement current use of anticoagulant Z79.01 Active 749034574 Problem Cardiomegaly I51.7 Active 5907719 Problem Psychophysiological insomnia F51.04 Active 097023704 Problem Anxiety state, unspecified F41.1 Active 002565640 Problem Moderate episode of recurrent major depressive disorder F33.1 Active 677773734 Problem Constipation, unspecified constipation type K59.00 Active 69429140 Problem Depressive disorder, not elsewhere classified F32.9 Active 40800501 Problem 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 Active 649581 Problem Insomnia, unspecified type G47.00 Active 048958726 Problem Chronic atrial fibrillation I48.2 Active 539853328 Problem Valvular heart disease I38 Active 422066 Problem End stage renal disease N18.6 Active 42788530 Problem Kidney failure N19 Active 53856781 Problem 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 821405610 Problem Hypotension, unspecified hypotension type I95.9 Active 03241705 Problem 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 038915607 ALLERGIES No Information ENCOUNTERS Encounter Location Date Diagnosis [facility] [address] [facility] [id number] [address] July, Seasonal allergic rhinitis, unspecified trigger J30.2 [facility] [address] [id number] [address] Jun, Wheezes R06.2 ; Seasonal allergic rhinitis, unspecified trigger J30.2 and Diarrhea, unspecified type R19.7 [place] [id number] [place] [address]8972- 6785 May, Cough R05 and Shortness of breath R06.02 [place] [address] [address] May, Adverse effect of unspecified systemic antibiotic, initial encounter T36.95XA [place] [address] [address] 15 May, 2017 Adverse effect of unspecified systemic antibiotic, initial encounter T36.95XA ; Toxic gastroenteritis and colitis K52.1 and Cough R05 [place] [address] [address]- [address] May, Shortness of breath R06.02 and Cough R05 [place] [id number] [place] [address] 44688- 0588 May, [place] [address] [address] May, Cough R05 ; Kidney failure N19 ; Atrial fibrillation, unspecified type I48.91 and Cardiomegaly I51.7 [place] [id number] [place] [address] 39187- 6046 May, Cough R05 [place] [id number] [place] [address] 53772- 4868 May, [facility] [id number] [place] [address] [id number] Apr, Dental examination Z01.20 [place] [id number] [place] [address] 33357- 3508 Mar, [place] [address] [address] Mar, Hemoglobin low D64.9 [place] [id number] [place] [address] 90164- 0778 Feb, Atrial fibrillation, unspecified type I48.91 ; End stage renal disease N18.6 ; Psychophysiological insomnia F51.04 ; Dark stools R19.5 ; Valvular heart disease I38 and Constipation, unspecified constipation type K59.00 [place] [id number] [place] [address] 09751- 1734 11 Feb, 2017 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.2 [place] [id number] [place] [address] 24135- 6335 Feb, Depressive disorder, not elsewhere classified F32.9 ; Anxiety state, unspecified F41.1 and Cognitive decline R41.89 [place] [id number] [place] [address] 58351- 1467 Jan, Depressive disorder, not elsewhere classified F32.9 ; Anxiety state, unspecified F41.1 and Cognitive decline R41.89 [place] [id number] [place] [address] 99119- 2004 Jan, Moderate episode of recurrent major depressive disorder F33.1 ; 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.2 and Atrial fibrillation, unspecified type I48.91 [place] [id number] [place] [address] 77707- 2179 Jan, Depressive disorder, not elsewhere classified F32.9 ; Anxiety state, unspecified F41.1 and Cognitive decline R41.89 [facility] [address] [place] [id number] Dec, End stage renal disease N18.6 and Valvular heart disease I38 [place] [id number] [place] [address] 47814- 2215 Nov, [place] [id number] [place] [address] 51443- 9099 Nov, retirement current use of anticoagulant Z79.01 [place] [id number] [place] [address] 70820- 4549 07 Nov, 2016 Recurrent major depressive disorder, in full remission F33.42 ; 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.2 ; Atrial fibrillation, unspecified type I48.91 and Shaking chills R68.83 [place] [id number] [place] [address] 33063 2546 Nov, [place] [id number] [place] [address] 06175 2546 Nov, [place] [id number] [place] [address] 43493 2546 Oct, retirement current use of anticoagulant Z79.01 [place] [address] [address] 2546 Oct, 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 [place] [id number] [place] [address] 77546 2546 Oct, retirement current use of anticoagulant Z79.01 [place] [id number] [place] [address] 98473- 0116 Oct, 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 [place] [id number] [place] [address] 43068- 4260 Oct, retirement current use of anticoagulant Z79.01 [place] [id number] [place] [address] 78958- 3339 Oct, 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 [place] [id number] [place] [address] 87919- 3766 Oct, 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 [place] [id number] [place] [address] 18304 2546 Sep, [place] [id number] [place] [address] 44596 2546 Sep, 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 [place] [id number] [place] [address] 25553 2546 Sep, 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 [place] [id number] [place] [address] 38305- 4873 Sep, 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 [facility] [id number] [place] [address] 365533- 8603 14 Sep, 2016 retirement current use of anticoagulant Z79.01 [facility] [id number] [place] [address] 85185- 5876 Sep, retirement current use of anticoagulant Z79.01 [facility] [id number] [place] [address] 08852- 0157 Sep, 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 [facility] [id number] [place] [address] 89732- 5167 Aug, 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 [facility] [id number] [place] [address] 67610- 5586 Aug, retirement current use of anticoagulant Z79.01 [facility] [id number] [place] [address] 58091- 8141 Aug, 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 [facility] [id number] [place] [address] 33193- 3966 July, [facility] [id number] [place] [address] 53479- 8336 July, retirement current use of anticoagulant Z79.01 [facility] [id number] [place] [address] 52739- 7786 July, 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 [facility] [id number] [place] [address] [id number]- 0176 July, 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 [facility] [id number] [place] [address] 878625- 2946 July, retirement current use of anticoagulant Z79.01 [facility] [id number] [place] [address] 18702754- 0622 July, [facility] [address], [place] [address] July, 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 [facility] [id number] [place] [address] 26679- 6259 July, [facility] [id number] [place] [address] 88359- 1145 July, retirement current use of anticoagulant Z79.01 [facility] [id number] [place] [address] 12008- 4290 Jun, retirement current use of anticoagulant Z79.01 [place] [id number] [place] [address] 66989- 8364 Jun, retirement current use of anticoagulant Z79.01 [place] [id number] [place] [address] 43996- 7710 Jun, 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 [place] [id number] [place] [address] 21368- 4335 Jun, retirement current use of anticoagulant Z79.01 [place] [id number] [place] [address] 74585- 8565 Jun, Fatigue, unspecified type R53.83 and Non-intractable vomiting with nausea, unspecified vomiting type R11.2 [place] [id number] [place] [address] 37771- 9357 Jun, 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 and Non- intractable vomiting with nausea, unspecified vomiting type R11.2 [place] [id number] [place] [address] 58468- 6584 May, retirement current use of anticoagulant Z79.01 [facility] [id number] [place] [address] 67739- 3621 May, 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 [place] [address] [address] May, [place] [id number] [place] [address] 67794- 2449 May, 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 [place] [id number] [place] [address] 97753- 4947 May, retirement current use of anticoagulant Z79.01 [place] [address] 53780- 5151 May, Fall, initial encounter W19.XXXA ; Toe pain, right M79.674 and Dizziness R42 [place] [address] 76266- 8411 May, retirement current use of anticoagulant Z79.01 [place] [address] 55453- 3873 May, 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 [place] [id number] [place] [address] 49455- 1124 May, 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 [place] [id number] [place] [address] 93387- 6198 Apr, [place] [address] 86949- 9559 Apr, retirement current use of anticoagulant Z79.01 [place] [id number] [place] [address] 43969- 1273 Apr, 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 [place] [id number] [place] [address] 97037- 1686 Apr, 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 ; Hemodialysis -associated hypotension I95.3 ; Varicose veins of left lower extremity I83.92 and Advance directive discussed with patient Z71.89 [place] [address] 47951- 1776 Mar, [place] [address] [place] [address] 91262- 6655 Mar, retirement current use of anticoagulant Z79.01 [place] [address] [place] [address] 56775- 1080 Mar, 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 [place] [id number] [place] [address] 75814- 7743 Mar, [place] [id number] [place] [address] 21000- 8877 Mar, retirement current use of anticoagulant Z79.01 and Encounter for therapeutic drug level monitoring Z51.81 [place] [id number] [place] [address] 33605- 7083 Mar, Atrial fibrillation, unspecified type I48.91 [place] [id number] [place] [address] 15534- 8994 Feb, Atrial fibrillation, unspecified type I48.91 [place] [id number] [place] [address] 64220- 9274 Feb, Atrial fibrillation, unspecified type I48.91 [place] [id number] [place] [address] 75746- 5288 Feb, Chronic anticoagulation Z79.01 ; Chronic fatigue R53.82 ; Hemodialysis-associated hypotension I95.3 ; 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.2 and End stage renal disease N18.6 [place] [id number] [place] [address] 62682- 7166 Feb, [place] [id number] [place] [address] 22592- 7328 Feb, Atrial fibrillation, unspecified type I48.91 [place] [id number] [place] [address] 55328- 3743 Feb, [place] [id number] [place] [address] 45420- 0652 Jan, Atrial fibrillation, unspecified type I48.91 [place] [id number] [place] [address] 63882- 2729 Jan, Atrial fibrillation, unspecified type I48.91 [place] [id number] [place] [address] 17394- 0729 Jan, Atrial fibrillation, unspecified type I48.91 ; Insomnia, unspecified type G47.00 ; End stage renal disease N18.6 and Valvular heart disease I38 [place] [id number] [place] [address] 71145- 5941 Jan, [place] [id number] [place] [address] 14516- 4703 Jan, Atrial fibrillation, unspecified type I48.91 [facility] [id number] [place] [address] 02930- 7206 Jan, [place] [id number] [place] [address] 52469- 8320 Jan, [place] [id number] [place] [address] 69324- 4912 Dec, [place] [id number] [place] [address] 49227- 7159 Nov, Hypotension, unspecified hypotension type I95.9 ; Systolic ejection murmur I38 and Insomnia, unspecified type G47.00 [place] [id number] [place] [address] 95004- 4129 Oct, [place] [id number] [place] [address] 50787- 3996 Oct, [place] [id number] [place] [address] 24095- 6739 Aug, Screening for diabetes mellitus Z13.1 ; 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 and Systolic ejection murmur I38 [facility] [id number] [place] [address] 22644- 5496 July, Cough R05 IMMUNIZATIONS No Known Immunizations SOCIAL HISTORY Never Assessed REASON FOR VISIT f/u, Depression and anxiety. PLAN OF CARE Activity Details Follow Up Next available Reason:depression and anxiety VITAL SIGNS MEDICATIONS Unknown Medications RESULTS No Results PROCEDURES Procedure Date Ordered Result Body Site [facility] VISIT MENTAL HEALTH ESTAB PT Feb 22, 2017 Psychotherapy, patient &/family, 30 minutes, established patient Feb 22, 2017 INSTRUCTIONS MEDICATIONS ADMINISTERED No Known Medications MEDICAL (GENERAL) HISTORY Type Description Date Medical History Decreased Kidney Function Medical History Hypertension Medical History Hyperlipidemia Medical History retirement use of coumadin Medical History Dialysis Surgical History tonsillectomy and adenoidectomy Surgical History appendectomy Surgical History Partial Hysterectomy Surgical History left knee replacement Hospitalization History Chest Tube-[facility] 03/2015 Hospitalization History Fluid on lungs-[facility] Hospitalization History ER -shunt malfunction 10/2016 Hospitalization History ER 12/01/2016 Hospitalization History Broken left arm and fractured pelvis 12/2016 Hospitalization History back pain - [facility] ED visit [facility] 03/07/17 Hospitalization History [facility]- [facility], Fluid Overload 04/12/17 Hospitalization History ER- [facility]- Bleeding/Needs stitches 04/20/2017 Hospitalization History ER - Shortness of breath 05/29/17
--- OUTSIDE RECORDS SUMMARY | 2018-04-13 16:00 | XMS REPORT ---
Author Author CHALINO MCDONALD Organization [facility] Address [address] [place] [address] Care Team Providers Care Typewriter Aligner Name Role Phone CHALINO MCDONALD Unavailable PROBLEMS Type Condition ICD9-CM Code UFN99-EY Code Onset Dates Condition Status SNOMED Code Problem Chronic fatigue R53.82 Active 22844614 Problem Recurrent major depressive disorder, in full remission F33.42 Active 890322416 Problem [facility] current use of anticoagulant Z79.01 Active 047630157 Problem Cardiomegaly I51.7 Active 2367107 Problem Psychophysiological insomnia F51.04 Active 731432729 Problem Anxiety state, unspecified F41.1 Active 650563432 Problem Moderate episode of recurrent major depressive disorder F33.1 Active 238506051 Problem Constipation, unspecified constipation type K59.00 Active 53114217 Problem Depressive disorder, not elsewhere classified F32.9 Active 12914227 Problem 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 Active 518269 Problem Insomnia, unspecified type G47.00 Active 855304818 Problem Chronic atrial fibrillation I48.2 Active 863138550 Problem Valvular heart disease I38 Active 965135 Problem End stage renal disease N18.6 Active 84547621 Problem Kidney failure N19 Active 31433534 Problem 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 097665610 Problem Hypotension, unspecified hypotension type I95.9 Active 14359717 Problem 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 329167109 ALLERGIES No Information ENCOUNTERS Encounter Location Date Diagnosis [facility] [address] [facility] [id number] [address] July, Seasonal allergic rhinitis, unspecified trigger J30.2 [facility] [address] [id number] [address] Jun, Wheezes R06.2 ; Seasonal allergic rhinitis, unspecified trigger J30.2 and Diarrhea, unspecified type R19.7 [facility] [id number] [place] [address]1217- 8239 May, Cough R05 and Shortness of breath R06.02 [place] [address] [address] May, Adverse effect of unspecified systemic antibiotic, initial encounter T36.95XA [place] [address] 26931- [address] 15 May, 2017 Adverse effect of unspecified systemic antibiotic, initial encounter T36.95XA ; Toxic gastroenteritis and colitis K52.1 and Cough R05 [place] [address] 30448- 1828 May, Shortness of breath R06.02 and Cough R05 [place] [id number] [place] [address] 65478- 6909 May, [place] [address] 89844- 1873 May, Cough R05 ; Kidney failure N19 ; Atrial fibrillation, unspecified type I48.91 and Cardiomegaly I51.7 [place] [id number] [place] [address] 01080- 9958 May, Cough R05 [place] [id number] [place] [address] 82320- 9506 May, [facility] [id number] [place] [address] [id number] Apr, Dental examination Z01.20 [place] [id number] [place] [address] 15925- 8978 Mar, [place] [address] 84810- 3752 Mar, Hemoglobin low D64.9 [place] [id number] [place] [address] 29231- 6263 Feb, Atrial fibrillation, unspecified type I48.91 ; End stage renal disease N18.6 ; Psychophysiological insomnia F51.04 ; Dark stools R19.5 ; Valvular heart disease I38 and Constipation, unspecified constipation type K59.00 [place] [id number] [place] [address] 33455- 7472 11 Feb, 2017 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.2 [place] [id number] [place] [address] 69106- 6869 Feb, Depressive disorder, not elsewhere classified F32.9 ; Anxiety state, unspecified F41.1 and Cognitive decline R41.89 [place] [id number] [place] [address] 63044- 3017 Jan, Depressive disorder, not elsewhere classified F32.9 ; Anxiety state, unspecified F41.1 and Cognitive decline R41.89 [place] [id number] [place] [address] 99576- 1216 Jan, Moderate episode of recurrent major depressive disorder F33.1 ; 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.2 and Atrial fibrillation, unspecified type I48.91 [place] [id number] [place] [address] 18050- 8047 Jan, Depressive disorder, not elsewhere classified F32.9 ; Anxiety state, unspecified F41.1 and Cognitive decline R41.89 [facility] [address] [place], [place] [id number] Dec, End stage renal disease N18.6 and Valvular heart disease I38 [place] [id number] [place] [address] 30395- 6062 Nov, [place] [id number] [place] [address] 88298- 2989 Nov, [facility] current use of anticoagulant Z79.01 [place] [id number] [place] [address] 58529- 2359 07 Nov, 2016 Recurrent major depressive disorder, in full remission F33.42 ; 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.2 ; Atrial fibrillation, unspecified type I48.91 and Shaking chills R68.83 [place] [id number] [place] [address] 82573 2546 Nov, [place] [id number] [place] [address] 51607 2546 Nov, [place] [id number] [place] [address] 80034 2546 Oct, [facility] current use of anticoagulant Z79.01 [place] [address] [address]59 2546 Oct, 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 [place] [id number] [place] [address] 84211 2546 Oct, [facility] current use of anticoagulant Z79.01 [place] [id number] [place] [address] 53534- 4806 Oct, 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 [place] [id number] [place] [address] 80453- 1892 Oct, [facility] current use of anticoagulant Z79.01 [place] [id number] [place] [address] 73453- 4738 Oct, 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 [place] [id number] [place] [address] 39913- 7293 Oct, 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 [place] [id number] [place] [address] 63589 2546 Sep, [place] [id number] [place] [address] 64308 2546 Sep, 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 [place] [id number] [place] [address] 22186 2546 Sep, 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 [place] [id number] [place] [address] 50192- 9756 Sep, 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 [facility] [id number] [place] [address] 954361- 7524 14 Sep, 2016 [facility] current use of anticoagulant Z79.01 [facility] [id number] [place] [address] 29029- 0816 Sep, [facility] current use of anticoagulant Z79.01 [facility] [id number] [place] [address] 73171- 7861 Sep, 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 [facility] [id number] [place] [address] 46611- 0627 Aug, 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 [facility] [id number] [place] [address] 57230- 2746 Aug, [facility] current use of anticoagulant Z79.01 [facility] [id number] [place] [address] 67325- 0834 Aug, 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 [facility] [id number] [place] [address] 05671- 2966 July, [facility] [id number] [place] [address] 55884- 5106 July, [facility] current use of anticoagulant Z79.01 [facility] [id number] [place] [address] 09333- 8606 July, 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 [facility] [id number] [place] [address] [phone]- 0976 July, 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 [facility] [id number] [place] [address] 905745- 1306 July, [facility] current use of anticoagulant Z79.01 [facility] [id number] [place] [address] 93898196- 8560 July, [facility] [address] [address] July, 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 [facility] [id number] [place] [address] 54069- 6218 July, [facility] [id number] [place] [address] 08045- 2358 July, [facility] current use of anticoagulant Z79.01 [facility] [id number] [place] [address] 05484- 3536 Jun, [facility] current use of anticoagulant Z79.01 [place] [id number] [place] [address] 74130- 7541 Jun, [facility] current use of anticoagulant Z79.01 [place] [id number] [place] [address] 50113- 0041 Jun, 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 [place] [id number] [place] [address] 50198- 3565 Jun, [facility] current use of anticoagulant Z79.01 [place] [id number] [place] [address] 53288- 7490 Jun, Fatigue, unspecified type R53.83 and Non-intractable vomiting with nausea, unspecified vomiting type R11.2 [place] [id number] [place] [address] 80472- 4298 Jun, 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 and Non- intractable vomiting with nausea, unspecified vomiting type R11.2 [place] [id number] [place] [address] 16320- 2827 May, [facility] current use of anticoagulant Z79.01 [facility] [id number] [place] [address] 84731- 5354 May, 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 [place] [address] [place] [address] May, [place] [id number] [place] [address] 27965- 1331 May, 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 [place] [id number] [place] [address] 88572- 5394 May, [facility] current use of anticoagulant Z79.01 [place] [address] 60313- 7553 May, Fall, initial encounter W19.XXXA ; Toe pain, right M79.674 and Dizziness R42 [place] [address] 91707- 0411 May, [facility] current use of anticoagulant Z79.01 [place] [address] 25002- 9676 May, 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 [place] [id number] [place] [address] 60880- 8041 May, 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92 and Advance directive discussed with patient Z71.89 [place] [address] 24688- 2407 Mar, [place] [id number] [place] [address] 82751- 8813 Mar, [facility] current use of anticoagulant Z79.01 [place] [id number] [place] [address] 74695- 7303 Mar, 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 [place] [id number] [place] [address] 01816- 1525 Mar, [place] [id number] [place] [address] 91187- 3041 Mar, [facility] current use of anticoagulant Z79.01 and Encounter for therapeutic drug level monitoring Z51.81 [place] [id number] [place] [address] 58814- 4380 Mar, Atrial fibrillation, unspecified type I48.91 [place] [id number] [place] [address] 49424- 4665 Feb, Atrial fibrillation, unspecified type I48.91 [place] [id number] [place] [address] 74624- 4736 Feb, Atrial fibrillation, unspecified type I48.91 [place] [id number] [place] [address] 80595- 4369 Feb, Chronic anticoagulation Z79.01 ; Chronic fatigue R53.82 ; Hemodialysis-associated hypotension I95.3 ; 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.2 and End stage renal disease N18.6 [place] [id number] [place] [address] 31966- 5485 Feb, [place] [id number] [place] [address] 77031- 3545 Feb, Atrial fibrillation, unspecified type I48.91 [place] [id number] [place] [address] 78734- 1380 Feb, [place] [id number] [place] [address] 15780- 8303 Jan, Atrial fibrillation, unspecified type I48.91 [place] [id number] [place] [address] 77042- 9135 Jan, Atrial fibrillation, unspecified type I48.91 [place] [id number] [place] [address] 82332- 0125 Jan, Atrial fibrillation, unspecified type I48.91 ; Insomnia, unspecified type G47.00 ; End stage renal disease N18.6 and Valvular heart disease I38 [place] [id number] [place] [address] 35901- 2508 Jan, [place] [id number] [place] [address] 32416- 1114 Jan, Atrial fibrillation, unspecified type I48.91 [place] [id number] [place] [address] 79776- 9304 Jan, [place] [id number] [place] [address] 33986- 5681 Jan, [place] [id number] [place] [address] 95300- 6590 Dec, [place] [id number] [place] [address] 65039- 9594 Nov, Hypotension, unspecified hypotension type I95.9 ; Systolic ejection murmur I38 and Insomnia, unspecified type G47.00 [place] [id number] [place] [address] 02807- 2483 Oct, [place] [id number] [place] [address] 48053- 8705 Oct, [place] [id number] [place] [address] 67355- 9168 Aug, Screening for diabetes mellitus Z13.1 ; 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 and Systolic ejection murmur I38 [place] [id number] [place] [address] 42857- 1889 July, Cough R05 IMMUNIZATIONS No Known Immunizations SOCIAL HISTORY Never Assessed REASON FOR VISIT f/u, Depression and anxiety. 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 ED visit [facility] 03/07/17 Hospitalization History [facility]- SOA, Fluid Overload 04/12/17 Hospitalization History ER- [facility]- Bleeding/Needs stitches 04/20/2017 Hospitalization History ER - Shortness of breath 05/29/17
--- OUTSIDE RECORDS SUMMARY | 2018-04-13 16:01 | XMS REPORT ---
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 Name Role Phone NALLELY SOLIMAN Unavailable PROBLEMS Type Condition ICD9-CM Code GWA42-QV Code Onset Dates Condition Status SNOMED Code Problem Chronic fatigue R53.82 Active 29112490 Problem Recurrent major depressive disorder, in full remission F33.42 Active 187317349 Problem jail current use of anticoagulant Z79.01 Active 646085285 Problem Cardiomegaly I51.7 Active 6317154 Problem Psychophysiological insomnia F51.04 Active 670741791 Problem Anxiety state, unspecified F41.1 Active 000395908 Problem Moderate episode of recurrent major depressive disorder F33.1 Active 588665111 Problem Constipation, unspecified constipation type K59.00 Active 24487799 Problem Depressive disorder, not elsewhere classified F32.9 Active 71601759 Problem 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 Active 385870 Problem Insomnia, unspecified type G47.00 Active 663903484 Problem Chronic atrial fibrillation I48.2 Active 069781122 Problem Valvular heart disease I38 Active 579786 Problem End stage renal disease N18.6 Active 92563660 Problem Kidney failure N19 Active 05852853 Problem 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 755211889 Problem Hypotension, unspecified hypotension type I95.9 Active 80382506 Problem 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 187348930 ALLERGIES Substance Reaction Event Type Date Status Zantac Unknown Drug Allergy Feb, Active Tetracycline HCl Unknown Drug Allergy Feb, Active Sulfamethoxazole-Trimethoprim Unknown Drug Allergy Feb, Active Penicillin V Potassium Unknown Drug Allergy Feb, Active Betadine Unknown Drug Allergy Feb, Active narcotics avoid them Non Drug Allergy Feb, Active ENCOUNTERS Encounter Location Date Diagnosis [facility] [address] [facility] [id number] [address] July, Seasonal allergic rhinitis, unspecified trigger J30.2 [facility] [address] [place] [address] Jun, Wheezes R06.2 ; Seasonal allergic rhinitis, unspecified trigger J30.2 and Diarrhea, unspecified type R19.7 [facility] [id number] [place] [address] 09541- 8278 May, Cough R05 and Shortness of breath R06.02 [facility] [address] [address] May, Adverse effect of unspecified systemic antibiotic, initial encounter T36.95XA [place] [address] [address]- [address] 15 May, 2017 Adverse effect of unspecified systemic antibiotic, initial encounter T36.95XA ; Toxic gastroenteritis and colitis K52.1 and Cough R05 [facility] [address] [address] May, Shortness of breath R06.02 and Cough R05 [place] [id number] [place] [address] 36850- 5269 May, [facility] [address] [address]- [address] May, Cough R05 ; Kidney failure N19 ; Atrial fibrillation, unspecified type I48.91 and Cardiomegaly I51.7 [facility] [id number] [place] [address] 93188- 6932 May, Cough R05 [facility] [id number] [place] [address] 25922- 0853 May, [facility] [id number] [place] [address] [id number] Apr, Dental examination Z01.20 [facility] [id number] [place] [address] 32399- 8759 Mar, [place] [id number] [place] [address] 21238- 6100 Mar, Hemoglobin low D64.9 [place] [address] 13444- 0256 Feb, Atrial fibrillation, unspecified type I48.91 ; End stage renal disease N18.6 ; Psychophysiological insomnia F51.04 ; Dark stools R19.5 ; Valvular heart disease I38 and Constipation, unspecified constipation type K59.00 [place] [id number] [place] [address] 42682- 5680 Feb, 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.2 [place] [address] 24022- 1754 Feb, Depressive disorder, not elsewhere classified F32.9 ; Anxiety state, unspecified F41.1 and Cognitive decline R41.[address] [address]- [address] Jan, Depressive disorder, not elsewhere classified F32.9 ; Anxiety state, unspecified F41.1 and Cognitive decline R41.89 [place] [id number] [place] [address] 52719- 6523 Jan, Moderate episode of recurrent major depressive disorder F33.1 ; 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.2 and Atrial fibrillation, unspecified type I48.91 [place] [id number] [place] [address] 55601- 0153 Jan, Depressive disorder, not elsewhere classified F32.9 ; Anxiety state, unspecified F41.1 and Cognitive decline R41.89 [facility] [address] [place] [phone] Dec, End stage renal disease N18.6 and Valvular heart disease I38 [place] [id number] [place] [address] 09767- 1014 Nov, [place] [id number] [place] [address] 31911- 9287 Nov, jail current use of anticoagulant Z79.01 [facility] [address] [place] [address] 95423- 9215 07 Nov, 2016 Recurrent major depressive disorder, in full remission F33.42 ; 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.2 ; Atrial fibrillation, unspecified type I48.91 and Shaking chills R68.83 [place] [id number] [place] [address] 22417- 0776 Nov, [place] [id number] [place] [address] 04242- 3369 Nov, [place] [id number] [place] [address] 44822- 4983 Oct, 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 [place] [id number] [place] [address] 39867- 2976 Oct, jail current use of anticoagulant Z79.01 [place] [id number] [place] [address] 91431- 3330 Oct, 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 [place] [id number] [place] [address] 33018- 0528 Oct, jail current use of anticoagulant Z79.01 [place] [id number] [place] [address] 18107- 9856 Oct, jail current use of anticoagulant Z79.01 [place] [id number] [place] [address] 21424- 4550 Oct, jail current use of anticoagulant Z79.01 [place] [id number] [place] [address] 07079- 9577 Oct, jail current use of anticoagulant Z79.01 [place] [id number] [place] [address] 68137- 1617 Sep, [place] [id number] [place] [address] 60434- 0620 Sep, 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 [facility] [address] [address] Sep, 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 [facility] [address] [address] 2546 Sep, jail current use of anticoagulant Z79.01 [facility] [id number] [place] [address] 16163 2546 Sep, jail current use of anticoagulant Z79.01 [facility] [address] [address] 2546 Sep, 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 [facility] [address] [place] [address] 00111 2546 Sep, jail current use of anticoagulant Z79.01 [place] [id number] [place] [address] 86553- 1949 Aug, 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 [facility] [address] [address] Aug, 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 [facility] [address] [address] Aug, jail current use of anticoagulant Z79.01 [place] [address] [address] July, [facility] [address] [place] [address] 61153 2548 July, 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 [facility] [address] [address] 2546 July, jail current use of anticoagulant Z79.01 [facility] [address] [address] 2546 July, 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 [place] [address] [address] 3269 July, jail current use of anticoagulant Z79.01 [place] [id number] [place] [address] 78135- 1256 July, [place] [id number] [place] [address] 65572- 5814 July, 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 [place] [id number] [place] [address] 46881- 3040 July, [place] [id number] [place] [address] 10095- 5845 July, 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 [place] [id number] [place] [address] 77837- 5737 Jun, jail current use of anticoagulant Z79.01 [place] [id number] [place] [address] 67442- 4101 Jun, 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 [place] [id number] [place] [address] 10991- 0546 Jun, 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 [place] [id number] [place] [address] 76262- 8520 Jun, jail current use of anticoagulant Z79.01 [place] [id number] [place] [address] 09257- 4876 Jun, Fatigue, unspecified type R53.83 and Non-intractable vomiting with nausea, unspecified vomiting type R11.2 [place] [id number] [place] [address] 28980- 6449 Jun, 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 and Non- intractable vomiting with nausea, unspecified vomiting type R11.2 [place] [id number] [place] [address] 10375- 0203 May, jail current use of anticoagulant Z79.01 [place] [id number] [place] [address] 47688- 2825 May, jail current use of anticoagulant Z79.01 [place] [id number] [place] [address] 47949- 3356 May, [place] [address] 25294- 4612 May, jail current use of anticoagulant Z79.01 [place] [id number] [place] [address] 06061- 9735 May, jail current use of anticoagulant Z79.01 [place] [id number] [place] [address] 36946- 0261 May, Fall, initial encounter W19.XXXA ; Toe pain, right M79.674 and Dizziness R42 [place] [id number] [place] [address] 14466- 1975 May, 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 [place] [id number] [place] [address] 13472- 1886 May, 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 [place] [id number] [place] [address] 50636- 7682 May, jail current use of anticoagulant Z79.01 [place] [id number] [place] [address] 07770- 1719 Apr, [place] [id number] [place] [address] 21561- 3698 Apr, jail current use of anticoagulant Z79.01 [place] [id number] [place] [address] 66852- 7385 Apr, 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 [place] [id number] [place] [address] 21920- 7736 Apr, jail current use of anticoagulant Z79.01 ; Hemodialysis -associated hypotension I95.3 ; Varicose veins of left lower extremity I83.92 and Advance directive discussed with patient Z71.89 [place] [address] [address]- 3[address] Mar, [place] [id number] [place] [address] 06115- 1002 Mar, 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 [place] [id number] [place] [address] 65266- 0125 Mar, jail current use of anticoagulant Z79.01 [place] [id number] [place] [address] 91060- 0426 Mar, [place] [id number] [place] [address] 41490- 7084 Mar, 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 and Encounter for therapeutic drug level monitoring Z51.81 [place] [id number] [place] [address] 09544- 2550 Mar, Atrial fibrillation, unspecified type I48.91 [place] [id number] [place] [address] 40384- 4027 Feb, Atrial fibrillation, unspecified type I48.91 [place] [id number] [place] [address] 06324- 8210 Feb, Atrial fibrillation, unspecified type I48.91 [place] [id number] [place] [address] 15743- 7666 Feb, Chronic anticoagulation Z79.01 ; Chronic fatigue R53.82 ; Hemodialysis-associated hypotension I95.3 ; 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.2 and End stage renal disease N18.6 [place] [address] [place] [address] 35880- 3362 Feb, [place] [id number] [place] [address] 77987- 2308 Feb, Atrial fibrillation, unspecified type I48.91 [facility] [id number] [place] [address] 10803- 9594 Feb, [facility] [id number] [place] [address] 37388- 5006 Jan, Atrial fibrillation, unspecified type I48.91 [facility] [id number] [place] [address] 23641- 3498 Jan, Atrial fibrillation, unspecified type I48.91 [place] [id number] [place] [address] 03768- 3797 Jan, Atrial fibrillation, unspecified type I48.91 ; Insomnia, unspecified type G47.00 ; End stage renal disease N18.6 and Valvular heart disease I38 [place] [id number] [place] [address] 88920- 1751 Jan, [facility] [id number] [place] [address] 34621- 8923 Jan, Atrial fibrillation, unspecified type I48.91 [place] [id number] [place] [address] 56560- 5966 Jan, [facility] [id number] [place] [address] 72647- 6297 Jan, [facility] [id number] [place] [address] 59781- 0334 Dec, [facility] [address] [place] [address] 05093- 1061 Nov, Hypotension, unspecified hypotension type I95.9 ; Systolic ejection murmur I38 and Insomnia, unspecified type G47.00 [facility] [address] [address]- 2972 Oct, [facility] [id number] [place] [address] 92703- 1004 Oct, [facility] [address] [facility] [place] [id number] [place] [address]- 7405 Aug, Screening for diabetes mellitus Z13.1 ; 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 and Systolic ejection murmur I38 [facility] [address] [facility] [place] [id number] [place] [address]- 2076 July, Cough R05 IMMUNIZATIONS No Known Immunizations SOCIAL HISTORY Never Assessed REASON FOR VISIT NH f/u -- kenyon gibson PLAN OF CARE Activity Details Follow Up 2 Months with Josefa for [facility] Reason: VITAL SIGNS Height 67 in 2017-03-24 Weight 119.0 lbs 2017-03-24 Temperature 98.1 degrees Fahrenheit 2017-03-24 BMI 18.64 kg/m2 2017-03-24 Blood pressure systolic 138 mmHg 2017-03-24 Blood pressure diastolic 56 mmHg 2017-03-24 MEDICATIONS Medication Instructions Dosage Frequency Start Date End Date Duration Status Renvela 800 MG Orally Three times a day 3 tablets 8h Active Sensipar 90 MG Orally 2 times a day 1 tablet 12h Active Senna S 8.6-50 MG Orally Once a day 1 tablet in the evening as needed 24h Feb, Jun, 30 day(s) Active Metoprolol Tartrate 25 MG Orally Twice a day 1 tablet with food 12h 90 Active Aspirin 81 MG Orally Once a day 1 tablet 24h Jan, 30 day(s) Active RESULTS No Results PROCEDURES Procedure Date Ordered Result Body Site [facility] VISIT ESTABLISHED PATIENT Mar 24, 2017 INSTRUCTIONS MEDICATIONS ADMINISTERED No Known Medications MEDICAL (GENERAL) HISTORY Type Description Date Medical History Decreased Kidney Function Medical History Hypertension Medical History Hyperlipidemia Medical History jail use of coumadin Medical History Dialysis Surgical History tonsillectomy and adenoidectomy Surgical History appendectomy Surgical History Partial Hysterectomy Surgical History left knee replacement Hospitalization History [facility] 03/2015 Hospitalization History Fluid on lungs-[facility] Hospitalization History ER -shunt malfunction 10/2016 Hospitalization History ER 12/01/2016 Hospitalization History Broken left arm and fractured pelvis 12/2016 Hospitalization History back pain - [facility] ED visit [facility] 03/07/17 Hospitalization History ER- [facility]- SOA, Fluid Overload 04/12/17 Hospitalization History ER- [facility]- Bleeding/Needs stitches 04/20/2017 Hospitalization History [facility] - Shortness of breath 05/29/17
--- OUTSIDE RECORDS SUMMARY | 2018-04-13 16:01 | XMS REPORT ---
Author Author NALLELY SOLIMAN Organization [facility] Address [address] [place] [address] Care Team Providers Care Pharmacy Messenger Name Role Phone NALLELY SOLIMAN Unavailable PROBLEMS Type Condition ICD9-CM Code WZK49-UA Code Onset Dates Condition Status SNOMED Code Problem Chronic fatigue R53.82 Active 84649598 Problem Recurrent major depressive disorder, in full remission F33.42 Active 462924540 Problem shelter current use of anticoagulant Z79.01 Active 361282685 Problem Cardiomegaly I51.7 Active 8962090 Problem Psychophysiological insomnia F51.04 Active 480827911 Problem Anxiety state, unspecified F41.1 Active 309031844 Problem Moderate episode of recurrent major depressive disorder F33.1 Active 229311197 Problem Constipation, unspecified constipation type K59.00 Active 84083150 Problem Depressive disorder, not elsewhere classified F32.9 Active 12497439 Problem 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 Active 721131 Problem Insomnia, unspecified type G47.00 Active 676637994 Problem Chronic atrial fibrillation I48.2 Active 361594379 Problem Valvular heart disease I38 Active 737438 Problem End stage renal disease N18.6 Active 01858144 Problem Kidney failure N19 Active 35688324 Problem 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 000695441 Problem Hypotension, unspecified hypotension type I95.9 Active 52750245 Problem 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 774081130 ALLERGIES No Information ENCOUNTERS Encounter Location Date Diagnosis [facility] [id number] [address] May, Cough R05 and Shortness of breath R06.02 [facility] [id number] [address] May, Adverse effect of unspecified systemic antibiotic, initial encounter T36.95XA [facility] [address] [place] [address] May, Adverse effect of unspecified systemic antibiotic, initial encounter T36.95XA ; Toxic gastroenteritis and colitis K52.1 and Cough R05 [address] [id number] May, Shortness of breath R06.02 and Cough R05 [address] [address] May, [address] [address] May, Cough R05 ; Kidney failure N19 ; Atrial fibrillation, unspecified type I48.91 and Cardiomegaly I51.[address] [address] May, Fever, unspecified fever cause R50.9 and Cough R05 [address] [address] May, [facility] [address] [id number] Apr, Dental examination Z01.20 [address] [address] [address] Mar, [id number] [place] [address] Mar, Hemoglobin low D64.[address] [address] Feb, Atrial fibrillation, unspecified type I48.91 ; End stage renal disease N18.6 ; Psychophysiological insomnia F51.04 ; Dark stools R19.5 ; Valvular heart disease I38 and Constipation, unspecified constipation type K59.00 [address] [address] [address] Feb, 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.2 [address] [place] [address] Feb, Depressive disorder, not elsewhere classified F32.9 ; Anxiety state, unspecified F41.1 and Cognitive decline R41.89 [id number] [place] [address]- [address]136 Jan, Depressive disorder, not elsewhere classified F32.9 ; Anxiety state, unspecified F41.1 and Cognitive decline R41.89 [address] [id number] [place] [address] 29154- 6047 Jan, Moderate episode of recurrent major depressive disorder F33.1 ; 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.2 and Atrial fibrillation, unspecified type I48.91 [address] [id number] [place] [address] 45253- 4539 Jan, Depressive disorder, not elsewhere classified F32.9 ; Anxiety state, unspecified F41.1 and Cognitive decline R41.89 [facility] [address] [place] [id number] Dec, End stage renal disease N18.6 and Valvular heart disease I38 [id number] [place] [address]- 2829 Nov, [address] [id number] [place] [address] 23733- 2389 Nov, shelter current use of anticoagulant Z79.01 [address] [id number] [place] [address]1977- 5559 Nov, Recurrent major depressive disorder, in full remission F33.42 ; 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.2 ; Atrial fibrillation, unspecified type I48.91 and Shaking chills R68.83 [address] [id number] [place] [address] 68566- 7259 Nov, [id number] [place] [address] 54301- 5476 Nov, [address] [address] Oct, shelter current use of anticoagulant Z79.01 [facility] [address] [place] [address] 00130- 4666 Oct, shelter current use of anticoagulant Z79.01 [facility] [id number] [place] [address] 54206- 6376 Oct, 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.01 [facility] [id number] [place] [address] 82481 2546 Oct, 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.01 [facility] [id number] [place] [address] 97850- 6323 Oct, shelter current use of anticoagulant Z79.01 [facility] [id number] [place] [address] 63000- 8926 Oct, shelter current use of anticoagulant Z79.01 [facility] [id number] [place] [address] 00498- 6355 Oct, shelter current use of anticoagulant Z79.01 [facility] [id number] [place] [address] 80452- 6916 Sep, [facility] [id number] [place] [address] 34445- 0813 Sep, shelter current use of anticoagulant Z79.01 [facility] [id number] [place] [address] 07618- 2546 Sep, shelter current use of anticoagulant Z79.01 [facility] [address] [place] [address] 40529 2546 Sep, shelter current use of anticoagulant Z79.01 [facility] [id number] [place] [address] 75229- 2546 Sep, shelter current use of anticoagulant Z79.01 [facility] [address] [place] [address] 82462- 2546 Sep, shelter current use of anticoagulant Z79.01 [facility] [address] [address] Sep, 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.01 [facility] [address], [place] [address] Aug, shelter current use of anticoagulant Z79.01 [facility] [address] [place] [address] 42347- 6338 Aug, shelter current use of anticoagulant Z79.01 [facility] [address] [place] [address] 763312- 3265 Aug, shelter current use of anticoagulant Z79.01 [facility] [id number] [place] [address] 27890- 4246 July, [facility] [id number] [place] [address] 09841- 6176 July, shelter current use of anticoagulant Z79.01 [facility] [address] [address] July, shelter current use of anticoagulant Z79.01 [facility] [address] [address] July, 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.01 [facility] [address], [place] [address] July, shelter current use of anticoagulant Z79.01 [facility] [address], [place] [address] July, [facility] [id number] [address] July, 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.01 [facility] [address], [place] [address] July, [facility] [id number] [address] July, shelter current use of anticoagulant Z79.01 [address] [place] [id number] [place] [address] 87249- 6726 Jun, shelter current use of anticoagulant Z79.01 [address] [place] [id number] [place] [address] 193777- 1326 Jun, shelter current use of anticoagulant Z79.01 [address] [id number] [place] [address] 40514- 6246 Jun, 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.01 [address] [id number] [place] [address] 395176- 3886 Jun, shelter current use of anticoagulant Z79.01 [address] [id number] [place] [address] 42629- 1046 Jun, Fatigue, unspecified type R53.83 and Non-intractable vomiting with nausea, unspecified vomiting type R11.2 [address] [place] [address] 17491- 7513 Jun, shelter current use of anticoagulant Z79.01 and Non- intractable vomiting with nausea, unspecified vomiting type R11.2 [address] [place] [address] 66429- 5537 May, shelter current use of anticoagulant Z79.01 [address] [place] [address] 347947- 0586 May, shelter current use of anticoagulant Z79.01 [address] [place] [address] 97385- 0286 May, [id number] [place] [address] 934811- 8006 May, shelter current use of anticoagulant Z79.01 [address] [id number] [place] [address] 312740- 3450 May, shelter current use of anticoagulant Z79.01 [address] [place] [address] 43341- 1999 May, Fall, initial encounter W19.XXXA ; Toe pain, right M79.674 and Dizziness R42 [id number] [place] [address] 37937- 8665 May, 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.01 [id number] [place] [address] 39403- 6068 May, 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.01 [address] [address] [id number] [place] [address] 50010- 1508 May, shelter current use of anticoagulant Z79.01 [id number] [place] [address] 27648- 1993 Apr, [id number] [place] [address] 41499- 4618 Apr, 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.01 [address] [id number] [place] [address] 22650- 1449 Apr, shelter current use of anticoagulant Z79.01 [address] [place] [id number] [place] [address] 17498- 4694 Apr, 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.01 ; Hemodialysis -associated hypotension I95.3 ; Varicose veins of left lower extremity I83.92 and Advance directive discussed with patient Z71.89 [id number] [place] [address] 07754- 7469 Mar, [id number] [place] [address] 99837- 5014 Mar, 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.01 [id number] [place] [address] 28561- 1143 Mar, shelter current use of anticoagulant Z79.01 [address] [address] 9560 Mar, [id number] [place] [address] 16552- 4206 Mar, shelter current use of anticoagulant Z79.01 and Encounter for therapeutic drug level monitoring Z51.81 [id number] [place] [address] 26726- 5900 Mar, Atrial fibrillation, unspecified type I48.91 [id number] [place] [address] 14408- 8052 Feb, Atrial fibrillation, unspecified type I48.91 [id number] [place] [address] 86662- 4200 Feb, Atrial fibrillation, unspecified type I48.91 [id number] [place] [address] 52621- 0918 Feb, Chronic anticoagulation Z79.01 ; Chronic fatigue R53.82 ; Hemodialysis-associated hypotension I95.3 ; 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.2 and End stage renal disease N18.6 [address] [place] [address] 22605- 4195 Feb, [address] [place] [address] 99692- 5027 Feb, Atrial fibrillation, unspecified type I48.91 [address] [place] [address] 78360- 7100 Feb, [address] [place] [address] 67522- 9355 Jan, Atrial fibrillation, unspecified type I48.91 [address] [address]- 6476 Jan, Atrial fibrillation, unspecified type I48.91 [address] [place] [address] 09355- 1907 Jan, Atrial fibrillation, unspecified type I48.91 ; Insomnia, unspecified type G47.00 ; End stage renal disease N18.6 and Valvular heart disease I38 [id number] [place] [address] 09108- 3609 Jan, [id number] [place] [address] 69143- 3275 Jan, Atrial fibrillation, unspecified type I48.91 [address] [address]267- 2003 Jan, [address] [place] [address]- 7649 Jan, [address] [place] 49463- 1570 Dec, [address] 77545- 6315 Nov, Hypotension, unspecified hypotension type I95.9 ; Systolic ejection murmur I38 and Insomnia, unspecified type G47.00 [id number] [place] [address] 07919- 2418 Oct, [id number] [place] [address] 02943- 9151 Oct, [id number] [place] [address] 75264- 5757 Aug, Screening for diabetes mellitus Z13.1 ; 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 and Systolic ejection murmur I38 [id number] [place] [address] 07159- 4560 July, Cough R05 IMMUNIZATIONS No Known Immunizations SOCIAL HISTORY Never Assessed REASON FOR VISIT Lab (walk-in)--Critical access hospital PLAN OF CARE VITAL SIGNS MEDICATIONS No Known Medications RESULTS No Results PROCEDURES Procedure Date Ordered Result Body Site PROTHROMBIN TIME October 15, 2016 INSTRUCTIONS MEDICATIONS ADMINISTERED No Known Medications MEDICAL (GENERAL) HISTORY Type Description Date Medical History Decreased Kidney Function Medical History Hypertension Medical History Hyperlipidemia 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 Medical History Dialysis Surgical History tonsillectomy and adenoidectomy Surgical History appendectomy Surgical History Partial Hysterectomy Surgical History left knee replacement Hospitalization History Chest Tube-[facility] 03/2015 Hospitalization History Fluid on lungs-[facility] Hospitalization History ER -shunt malfunction 10/2016 Hospitalization History ER 12/01/2016 Hospitalization History Broken left arm and fractured pelvis 12/2016 Hospitalization History back pain - [facility] ED visit [facility] 03/07/17 Hospitalization History [facility]- [place]- SOA, Fluid Overload 04/12/17 Hospitalization History ER- [place]- Bleeding/Needs stitches 04/20/2017 Hospitalization History ER - Shortness of breath 05/29/17
--- OUTSIDE RECORDS SUMMARY | 2018-04-13 16:02 | XMS REPORT ---
Author Author NALLELY SOLIMAN [facility] Address [address] [place] [address] Care Team Providers Care Engineering Group Manager Name Role Phone NALLELY SOLIMAN Unavailable PROBLEMS Type Condition ICD9-CM Code UVX15-FH Code Onset Dates Condition Status SNOMED Code Problem Chronic fatigue R53.82 Active 47868947 Problem Recurrent major depressive disorder, in full remission F33.42 Active 994865323 Problem custodial current use of anticoagulant Z79.01 Active 738049290 Problem Cardiomegaly I51.7 Active 9992221 Problem Psychophysiological insomnia F51.04 Active 099620068 Problem Anxiety state, unspecified F41.1 Active 502762370 Problem Moderate episode of recurrent major depressive disorder F33.1 Active 089468373 Problem Constipation, unspecified constipation type K59.00 Active 06912907 Problem Depressive disorder, not elsewhere classified F32.9 Active 29638663 Problem 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 Active 673395 Problem Insomnia, unspecified type G47.00 Active 142256757 Problem Chronic atrial fibrillation I48.2 Active 632857641 Problem Valvular heart disease I38 Active 595208 Problem End stage renal disease N18.6 Active 55045082 Problem Kidney failure N19 Active 99831773 Problem 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 516783183 Problem Hypotension, unspecified hypotension type I95.9 Active 20352888 Problem 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 [id number] ALLERGIES No Information ENCOUNTERS Encounter Location Date Diagnosis [facility] [address] [id number] [address] May, Cough R05 and Shortness of breath R06.02 [facility] [address] [id number], [place] [address] May, Adverse effect of unspecified systemic antibiotic, initial encounter T36.95XA [facility] [address] [place] [address] May, Adverse effect of unspecified systemic antibiotic, initial encounter T36.95XA ; Toxic gastroenteritis and colitis K52.1 and Cough R05 [address] [id number] May, Shortness of breath R06.02 and Cough R05 [address] [address] [address] [address] May, [place] [address] [address] May, Cough R05 ; Kidney failure N19 ; Atrial fibrillation, unspecified type I48.91 and Cardiomegaly I51.[address] [address] May, Fever, unspecified fever cause R50.9 and Cough R05 [address] [address] May, [facility] [address] [id number] Apr, Dental examination Z01.20 [place] [address] [address] [address] Mar, [address] [address] [id number] [place] [address]- [address] Mar, Hemoglobin low D64.[address] [address] Feb, Atrial fibrillation, unspecified type I48.91 ; End stage renal disease N18.6 ; Psychophysiological insomnia F51.04 ; Dark stools R19.5 ; Valvular heart disease I38 and Constipation, unspecified constipation type K59.00 [place] [address] [address] Feb, 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.2 [address] [place] [address] Feb, Depressive disorder, not elsewhere classified F32.9 ; Anxiety state, unspecified F41.1 and Cognitive decline R41.89 [place] [id number] [place] [address]66- 295[address] Jan, Depressive disorder, not elsewhere classified F32.9 ; Anxiety state, unspecified F41.1 and Cognitive decline R41.89 [place] [id number] [place] [address] 14036- 2615 Jan, Moderate episode of recurrent major depressive disorder F33.1 ; 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.2 and Atrial fibrillation, unspecified type I48.91 [address] [id number] [place] [address]- [address]32 Jan, Depressive disorder, not elsewhere classified F32.9 ; Anxiety state, unspecified F41.1 and Cognitive decline R41.89 [facility] [address] [place], [place] [id number] Dec, End stage renal disease N18.6 and Valvular heart disease I38 [address] [id number] [place] [address]- [address] Nov, [place] [id number] [place] [address] 11999- 1408 Nov, custodial current use of anticoagulant Z79.01 [place] [id number] [place] [address] 16943- 9399 Nov, Recurrent major depressive disorder, in full remission F33.42 ; 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.2 ; Atrial fibrillation, unspecified type I48.91 and Shaking chills R68.83 [address] [id number] [place] [address] 54453- 5036 Nov, [place] [id number] [place] [address] 60963- 6767 Nov, [place] [address] [address] Oct, custodial current use of anticoagulant Z79.01 [facility] [id number] [place] [address] 44479- 3586 Oct, custodial current use of anticoagulant Z79.01 [facility] [id number] [place] [address] 83319- 1286 Oct, 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 helper current 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 of 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 Z79.01 [facility] [id number] [place] [address] 00[address] 2546 Oct, termite helper current use of anticoagulant Z79.01 [facility] [id number] [place] [address] 45230- 2985 Oct, custodial current use of anticoagulant Z79.01 [facility] [id number] [place] [address] 23760- 0426 Oct, custodial current use of anticoagulant Z79.01 [facility] [id number] [place] [address] 05445- 4655 Oct, custodial current use of anticoagulant Z79.01 [facility] [id number] [place] [address] 69854- 9616 Sep, [facility] [id number] [place] [address] 64107- [address] Sep, custodial current use of anticoagulant Z79.01 [facility] [id number] [place] [address] 58402- 2546 Sep, custodial current use of anticoagulant Z79.01 [facility] [id number] [place] [address] 2546 Sep, custodial current use of anticoagulant Z79.01 [facility] [id number] [place] [address] 54787- 2546 Sep, custodial current use of anticoagulant Z79.01 [facility] [id number] [place] [address] 46823- 2546 Sep, custodial current use of anticoagulant Z79.01 [facility] [address] [address] Sep, termite helper current use of anticoagulant Z79.01 [facility] [address], [place] [address] Aug, custodial current use of anticoagulant Z79.01 [facility] [id number] [place] [address] 84940- 3[address] Aug, custodial current use of anticoagulant Z79.01 [facility] [id number] [place] [address] 345868- 9178 Aug, custodial current use of anticoagulant Z79.01 [facility] [id number] [place] [address] 15877- 9086 July, [facility] [id number] [place] [address] 61294- 4886 July, custodial current use of anticoagulant Z79.01 [facility] [address], [place] [address] July, custodial current use of anticoagulant Z79.01 [facility] [address] [address] July, termite helper current use of anticoagulant Z79.01 [facility] [address], [place] [address] July, custodial current use of anticoagulant Z79.01 [facility] [address], [place] [address] July, [facility] [id number] [address] July, termite helper current use of anticoagulant Z79.01 [facility] [address], [place] [address] July, [facility] [id number] [address] July, custodial current use of anticoagulant Z79.01 [address] [id number] [place] [address] 96344- 9946 Jun, custodial current use of anticoagulant Z79.01 [place] [id number] [place] [address] 656445- 6076 Jun, custodial current use of anticoagulant Z79.01 [place] [id number] [place] [address] 03475- 7546 Jun, termite helper current use of anticoagulant Z79.01 [place] [id number] [place] [address] 901215- 4696 Jun, custodial current use of anticoagulant Z79.01 [address] [id number] [place] [address] 25105- 7176 Jun, Fatigue, unspecified type R53.83 and Non-intractable vomiting with nausea, unspecified vomiting type R11.2 [address] [id number] [place] [address] 19568- 4398 Jun, custodial current use of anticoagulant Z79.01 and Non- intractable vomiting with nausea, unspecified vomiting type R11.2 [id number] [place] [address] 45324- 8585 May, custodial current use of anticoagulant Z79.01 [address] [id number] [place] [address] 067365- 7526 May, custodial current use of anticoagulant Z79.01 [address] [address] [address] [place] [address] 52025- 6716 May, [place] [id number] [place] [address] 573900- 8146 May, custodial current use of anticoagulant Z79.01 [address] [id number] [place] [address] 083146- 1233 May, custodial current use of anticoagulant Z79.01 [address] [address] [place] [address] 82329- 9182 May, Fall, initial encounter W19.XXXA ; Toe pain, right M79.674 and Dizziness R42 [place] [id number] [place] [address] 09740- 4670 May, termite helper current use of anticoagulant Z79.01 [address] [id number] [place] [address] 25954- 0923 May, termite helper current use of anticoagulant Z79.01 [place] [id number] [place] [address] 57539- 7794 May, custodial current use of anticoagulant Z79.01 [address] [id number] [place] [address] 13717- 0997 Apr, [id number] [place] [address] 42543- 8719 Apr, termite helper current use of anticoagulant Z79.01 [address] [id number] [place] [address] 27415- 8652 Apr, custodial current use of anticoagulant Z79.01 [address] [id number] [place] [address] 54313- 9767 Apr, termite helper current use of anticoagulant Z79.01 ; Hemodialysis -associated hypotension I95.3 ; Varicose veins of left lower extremity I83.92 and Advance directive discussed with patient Z71.89 [address] [id number] [place] [address] 90144- 2080 Mar, [place] [id number] [place] [address] 80032- 0125 Mar, termite helper current use of anticoagulant Z79.01 [address] [id number] [place] [address] 11561- 5584 Mar, custodial current use of anticoagulant Z79.01 [place], [place] [address] Mar, [id number] [place] [address] 17523- 4479 Mar, custodial current use of anticoagulant Z79.01 and Encounter for therapeutic drug level monitoring Z51.81 [place] [id number] [place] [address] 37967- 4718 Mar, Atrial fibrillation, unspecified type I48.91 [address] [id number] [place] [address] 79208- 2333 Feb, Atrial fibrillation, unspecified type I48.91 [place] [id number] [place] [address] 43003- 4115 Feb, Atrial fibrillation, unspecified type I48.91 [place] [id number] [place] [address] 58664- 0608 Feb, Chronic anticoagulation Z79.01 ; Chronic fatigue R53.82 ; Hemodialysis-associated hypotension I95.3 ; 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.2 and End stage renal disease N18.6 [address] [place] [place] [address] 29258- 4069 Feb, [address] [place] [address] 43852- 4824 Feb, Atrial fibrillation, unspecified type I48.91 [address] [place] [address] 76869- 6897 Feb, [address] [place] [address] 32108- 7942 Jan, Atrial fibrillation, unspecified type I48.91 [address], [place] [address]- 0644 Jan, Atrial fibrillation, unspecified type I48.91 [address] [place] [address] 01464- 4743 Jan, Atrial fibrillation, unspecified type I48.91 ; Insomnia, unspecified type G47.00 ; End stage renal disease N18.6 and Valvular heart disease I38 [address] [id number] [place] [address] 20483- 1530 Jan, [id number] [place] [address] 18206- 3237 Jan, Atrial fibrillation, unspecified type I48.91 [place] [address] 01858- 3381 Jan, [place] [address] 28781- 3198 Jan, [place] [address] 50058- 3861 Dec, [place] [address] 05701- 0149 Nov, Hypotension, unspecified hypotension type I95.9 ; Systolic ejection murmur I38 and Insomnia, unspecified type G47.00 [address] [id number] [place] [address] 13912- 8294 Oct, [place] [id number] [place] [address] 23573- 3690 Oct, [id number] [place] [address] 75634- 7412 Aug, Screening for diabetes mellitus Z13.1 ; 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 and Systolic ejection murmur I38 [address] [id number] [place] [address] 65589- 7842 July, Cough R05 IMMUNIZATIONS No Known Immunizations SOCIAL HISTORY Never Assessed REASON FOR VISIT refill PLAN OF CARE VITAL SIGNS MEDICATIONS Medication Instructions Dosage Frequency Start Date End Date Duration Status Coumadin 3 MG Orally daily on MWF along with a 5mg tablet then 7mg on remaining days 1 tablet Active RESULTS No Results PROCEDURES No Known procedures INSTRUCTIONS MEDICATIONS ADMINISTERED No Known Medications MEDICAL (GENERAL) HISTORY Type Description Date Medical History Decreased Kidney Function Medical History Hypertension Medical History Hyperlipidemia Medical History custodial use of coumadin Medical History Dialysis Surgical History tonsillectomy and adenoidectomy Surgical History appendectomy Surgical History Partial Hysterectomy Surgical History left knee replacement Hospitalization History Chest Tube-[facility] 03/2015 Hospitalization History Fluid on lungs-[facility] Hospitalization History ER -shunt malfunction 10/2016 Hospitalization History ER 12/01/2016 Hospitalization History Broken left arm and fractured pelvis 12/2016 Hospitalization History back pain - [facility] ED visit [facility] 03/07/17 Hospitalization History [facility]- SOA, Fluid Overload 04/12/17 Hospitalization History [facility]- Bleeding/Needs stitches 04/20/2017 Hospitalization History [facility] - Shortness of breath 05/29/17
--- OUTSIDE RECORDS SUMMARY | 2018-04-13 16:02 | XMS REPORT ---
Author Author NALLELY SOLIMAN [facility] Address [address] [place] [address] Care Team Providers Care Brakeshoe Repairer Name Role Phone NALLELY SOLIMAN Unavailable PROBLEMS Type Condition ICD9-CM Code LNT44-XT Code Onset Dates Condition Status SNOMED Code Problem Chronic fatigue R53.82 Active 67304796 Problem Recurrent major depressive disorder, in full remission F33.42 Active 911971340 Problem residential current use of anticoagulant Z79.01 Active 766921389 Problem Cardiomegaly I51.7 Active 4102191 Problem Psychophysiological insomnia F51.04 Active 651539048 Problem Anxiety state, unspecified F41.1 Active 847008040 Problem Moderate episode of recurrent major depressive disorder F33.1 Active 830426543 Problem Constipation, unspecified constipation type K59.00 Active 37723217 Problem Depressive disorder, not elsewhere classified F32.9 Active 82587152 Problem 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 Active 874786 Problem Insomnia, unspecified type G47.00 Active 159717780 Problem Chronic atrial fibrillation I48.2 Active 898236117 Problem Valvular heart disease I38 Active 722744 Problem End stage renal disease N18.6 Active 60909657 Problem Kidney failure N19 Active 38702324 Problem 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 220352617 Problem Hypotension, unspecified hypotension type I95.9 Active 55114530 Problem 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 302665103 ALLERGIES No Information ENCOUNTERS Encounter Location Date Diagnosis [facility] [id number] [address] May, Cough R05 and Shortness of breath R06.02 [facility] [id number] [address] May, Adverse effect of unspecified systemic antibiotic, initial encounter T36.95XA [facility] [address] [place] [address] May, Adverse effect of unspecified systemic antibiotic, initial encounter T36.95XA ; Toxic gastroenteritis and colitis K52.1 and Cough R05 [place] [address] [id number] May, Shortness of breath R06.02 and Cough R05 [place] [address] [address] May, [place] [address] [address] May, Cough R05 ; Kidney failure N19 ; Atrial fibrillation, unspecified type I48.91 and Cardiomegaly I51.[address] [address] May, Fever, unspecified fever cause R50.9 and Cough R05 [address] [address]- [address] May, [facility] [address] [id number] Apr, Dental examination Z01.20 [place] [address] [address] Mar, [place] [id number] [place] [address]703 Mar, Hemoglobin low D64.[address] [address]- [address] Feb, Atrial fibrillation, unspecified type I48.91 ; End stage renal disease N18.6 ; Psychophysiological insomnia F51.04 ; Dark stools R19.5 ; Valvular heart disease I38 and Constipation, unspecified constipation type K59.00 [place] [address] [address] Feb, 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.2 [address] [place] [address] Feb, Depressive disorder, not elsewhere classified F32.9 ; Anxiety state, unspecified F41.1 and Cognitive decline R41.89 [place] [id number] [place] [address] 31268- 3784 Jan, Depressive disorder, not elsewhere classified F32.9 ; Anxiety state, unspecified F41.1 and Cognitive decline R41.89 [place] [id number] [place] [address] 51497- 9145 Jan, Moderate episode of recurrent major depressive disorder F33.1 ; 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.2 and Atrial fibrillation, unspecified type I48.91 [place] [id number] [place] [address] 34098- 3563 Jan, Depressive disorder, not elsewhere classified F32.9 ; Anxiety state, unspecified F41.1 and Cognitive decline R41.89 [facility] [place] [address] [place] [id number] Dec, End stage renal disease N18.6 and Valvular heart disease I38 [place] [id number] [place] [address] 47651- 6953 Nov, [place] [id number] [place] [address] 52860- 3253 Nov, residential current use of anticoagulant Z79.01 [place] [id number] [place] [address] 32070- 4373 Nov, Recurrent major depressive disorder, in full remission F33.42 ; 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.2 ; Atrial fibrillation, unspecified type I48.91 and Shaking chills R68.83 [place] [id number] [place] [address] 25833- 6182 Nov, [place] [id number] [place] [address] 75332- 6679 Nov, [place] [address] [address]- [address] Oct, residential current use of anticoagulant Z79.01 [facility] [id number] [place] [address] 83931- 7596 Oct, residential current use of anticoagulant Z79.01 [facility] [id number] [place] [address] 78538- 1916 Oct, 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 current use of anticoagulant Z79.01 [facility] [id number] [place] [address] 8[address] 2546 Oct, 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 current use of anticoagulant Z79.01 [facility] [id number] [place] [address] 29980- 6868 Oct, residential current use of anticoagulant Z79.01 [facility] [id number] [place] [address] 53724- 8476 Oct, residential current use of anticoagulant Z79.01 [facility] [id number] [place] [address] 97764- 3431 Oct, residential current use of anticoagulant Z79.01 [facility] [id number] [place] [address] 01844- 9596 Sep, [facility] [id number] [place] [address] 16142- 0515 Sep, residential current use of anticoagulant Z79.01 [facility] [id number] [place] [address] 18245- 2546 Sep, residential current use of anticoagulant Z79.01 [facility] [id number] [place] [address] 49075 2546 Sep, residential current use of anticoagulant Z79.01 [facility] [id number] [place] [address] 20140- 2546 Sep, residential current use of anticoagulant Z79.01 [facility] [id number] [place] [address] 22195- 2546 Sep, residential current use of anticoagulant Z79.01 [facility] [address] [address] Sep, 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 current use of anticoagulant Z79.01 [facility] [address] [address] Aug, residential current use of anticoagulant Z79.01 [facility] [id number] [place] [address] 92767- 3131 Aug, residential current use of anticoagulant Z79.01 [facility] [id number] [place] [address] 280774- 0173 Aug, residential current use of anticoagulant Z79.01 [facility] [id number] [place] [address] 60261- 7416 July, [facility] [id number] [place] [address] 44330- 0056 July, residential current use of anticoagulant Z79.01 [facility] [address] [address] July, residential current use of anticoagulant Z79.01 [facility] [address] [address] July, 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 current use of anticoagulant Z79.01 [facility] [address] [address] July, residential current use of anticoagulant Z79.01 [facility] [address] [address] July, [facility] [id number] [address] July, 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 current use of anticoagulant Z79.01 [facility] [address] [address] July, [facility] [id number] [address] July, residential current use of anticoagulant Z79.01 [place] [id number] [place] [address] 04085- 2506 Jun, residential current use of anticoagulant Z79.01 [place] [id number] [place] [address] 412926- 7786 Jun, residential current use of anticoagulant Z79.01 [place] [id number] [place] [address] 33673- 1816 Jun, 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 current use of anticoagulant Z79.01 [place] [id number] [place] [address] 710535- 6536 Jun, residential current use of anticoagulant Z79.01 [place] [id number] [place] [address] 32740- 6186 Jun, Fatigue, unspecified type R53.83 and Non-intractable vomiting with nausea, unspecified vomiting type R11.2 [address] [id number] [place] [address] 89950- 3389 Jun, residential current use of anticoagulant Z79.01 and Non- intractable vomiting with nausea, unspecified vomiting type R11.2 [id number] [place] [address] 11244- 3473 May, residential current use of anticoagulant Z79.01 [address] [id number] [place] [address] 612227- 7296 May, residential current use of anticoagulant Z79.01 [address] [id number] [place] [address] 79197- 9996 May, [place] [id number] [place] [address] 883463- 5636 May, residential current use of anticoagulant Z79.01 [place] [id number] [place] [address] 513080- 9302 May, residential current use of anticoagulant Z79.01 [address] [address] [place] [address] 16365- 4630 May, Fall, initial encounter W19.XXXA ; Toe pain, right M79.674 and Dizziness R42 [address] [id number] [place] [address] 90450- 7071 May, 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 current use of anticoagulant Z79.01 [place] [id number] [place] [address] 88469- 0772 May, 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 current use of anticoagulant Z79.01 [place] [id number] [place] [address] 19865- 7353 May, residential current use of anticoagulant Z79.01 [place] [id number] [place] [address] 14637- 1796 Apr, [place] [id number] [place] [address] 16091- 3637 Apr, 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 current use of anticoagulant Z79.01 [place] [id number] [place] [address] 95684- 1576 Apr, residential current use of anticoagulant Z79.01 [place] [id number] [place] [address] 35195- 3708 Apr, 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 current use of anticoagulant Z79.01 ; Hemodialysis -associated hypotension I95.3 ; Varicose veins of left lower extremity I83.92 and Advance directive discussed with patient Z71.89 [place] [id number] [place] [address] 10857- 2989 Mar, [place] [id number] [place] [address] 46039- 7334 Mar, 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 current use of anticoagulant Z79.01 [place] [id number] [place] [address] 76046- 9265 Mar, residential current use of anticoagulant Z79.01 [place], [place] [address]- 4987 Mar, [place] [id number] [place] [address] 88745- 8389 Mar, residential current use of anticoagulant Z79.01 and Encounter for therapeutic drug level monitoring Z51.81 [place] [id number] [place] [address] 00182- 8407 Mar, Atrial fibrillation, unspecified type I48.91 [address] [id number] [place] [address] 59060- 2782 Feb, Atrial fibrillation, unspecified type I48.91 [place] [id number] [place] [address] 09216- 3974 Feb, Atrial fibrillation, unspecified type I48.91 [place] [id number] [place] [address] 65682- 4408 Feb, Chronic anticoagulation Z79.01 ; Chronic fatigue R53.82 ; Hemodialysis-associated hypotension I95.3 ; 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.2 and End stage renal disease N18.6 [address] [place] [address] 76630- 8374 Feb, [id number] [place] [address] 38216- 6503 Feb, Atrial fibrillation, unspecified type I48.91 [id number] [place] [address] 10456- 7272 Feb, [id number] [place] [address] 35021- 5042 Jan, Atrial fibrillation, unspecified type I48.91 [address], [place] [address]- 0738 Jan, Atrial fibrillation, unspecified type I48.91 [address] [place] [address] 17315- 8536 Jan, Atrial fibrillation, unspecified type I48.91 ; Insomnia, unspecified type G47.00 ; End stage renal disease N18.6 and Valvular heart disease I38 [address] [id number] [place] [address] 05467- 3178 Jan, [place] [id number] [place] [address] 53453- 9552 Jan, Atrial fibrillation, unspecified type I48.91 [place] [id number] [place] [address] 08979- 7536 Jan, [place] [address] 38726- 4562 Jan, [place] [id number] [place] [address] 37319- 8121 Dec, [place] [address] 55916- 8611 Nov, Hypotension, unspecified hypotension type I95.9 ; Systolic ejection murmur I38 and Insomnia, unspecified type G47.00 [place] [id number] [place] [address] 96940- 1605 Oct, [place] [id number] [place] [address] 72262- 2578 Oct, [place] [id number] [place] [address] 76373- 5682 Aug, Screening for diabetes mellitus Z13.1 ; 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 and Systolic ejection murmur I38 [address] [id number] [place] [address] 83050- 4099 July, Cough R05 IMMUNIZATIONS No Known Immunizations SOCIAL HISTORY Never Assessed REASON FOR VISIT deferred lab PLAN OF CARE VITAL SIGNS MEDICATIONS No [...] History left knee replacement Hospitalization History Chest Tube-[facility] 03/2015 Hospitalization History Fluid on lungs[facility] Hospitalization History ER -shunt malfunction 10/2016 Hospitalization History ER 12/01/2016 Hospitalization History Broken left arm and fractured pelvis 12/2016 Hospitalization History back pain - [facility] ED visit [facility] 03/07/17 Hospitalization History [facility] ER- [place]- SOA, Fluid Overload 04/12/17 Hospitalization History ER- [place]- Bleeding/Needs stitches 04/20/2017 Hospitalization History ER - Shortness of breath 05/29/17
--- OUTSIDE RECORDS SUMMARY | 2018-04-13 16:03 | XMS REPORT ---
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 Name Role Phone NALLELY SOLIMAN Unavailable PROBLEMS Type Condition ICD9-CM Code BKD62-VN Code Onset Dates Condition Status SNOMED Code Problem Chronic fatigue R53.82 Active 49413885 Problem Recurrent major depressive disorder, in full remission F33.42 Active 842837626 Problem long-term current use of anticoagulant Z79.01 Active 690572294 Problem Cardiomegaly I51.7 Active 7261017 Problem Psychophysiological insomnia F51.04 Active 977059536 Problem Anxiety state, unspecified F41.1 Active 908155833 Problem Moderate episode of recurrent major depressive disorder F33.1 Active 114230389 Problem Constipation, unspecified constipation type K59.00 Active 86710686 Problem Depressive disorder, not elsewhere classified F32.9 Active 67744605 Problem 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 Active 252584 Problem Insomnia, unspecified type G47.00 Active 316891280 Problem Chronic atrial fibrillation I48.2 Active 997725318 Problem Valvular heart disease I38 Active 282239 Problem End stage renal disease N18.6 Active 39809434 Problem Kidney failure N19 Active 30074800 Problem 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 284370355 Problem Hypotension, unspecified hypotension type I95.9 Active 09647538 Problem 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 802094299 ALLERGIES No Information ENCOUNTERS Encounter Location Date Diagnosis [facility], [place] [id number], [place] [address] May, Cough R05 and Shortness of breath R06.02 [facility], [place] [id number], [place] [address] May, Adverse effect of unspecified systemic antibiotic, initial encounter T36.95XA [facility], [place] [address] [place] [address]- [address] May, Adverse effect of unspecified systemic antibiotic, initial encounter T36.95XA ; Toxic gastroenteritis and colitis K52.1 and Cough R05 [address] [address] [id number] May, Shortness of breath R06.02 and Cough R05 [place] [address] [address] May, [place] [address] [address] May, Cough R05 ; Kidney failure N19 ; Atrial fibrillation, unspecified type I48.91 and Cardiomegaly I51.[address] [address] May, Fever, unspecified fever cause R50.9 and Cough R05 [address] [address] May, [facility] [address] [id number] Apr, Dental examination Z01.20 [place] [address] [address] Mar, [place] [id number] [place] [address]- [address]56 Mar, Hemoglobin low D64.[address] [address] Feb, Atrial fibrillation, unspecified type I48.91 ; End stage renal disease N18.6 ; Psychophysiological insomnia F51.04 ; Dark stools R19.5 ; Valvular heart disease I38 and Constipation, unspecified constipation type K59.00 [place] [address] [address] Feb, 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.2 [address] [place] [address] Feb, Depressive disorder, not elsewhere classified F32.9 ; Anxiety state, unspecified F41.1 and Cognitive decline R41.89 [place] [id number] [place] [address] 36305- 3169 Jan, Depressive disorder, not elsewhere classified F32.9 ; Anxiety state, unspecified F41.1 and Cognitive decline R41.89 [address] [id number] [place] [address] 51923- 9883 Jan, Moderate episode of recurrent major depressive disorder F33.1 ; 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.2 and Atrial fibrillation, unspecified type I48.91 [address] [id number] [place] [address] 8[address]39- 3431 Jan, Depressive disorder, not elsewhere classified F32.9 ; Anxiety state, unspecified F41.1 and Cognitive decline R41.89 [facility] [address] [place] [id number] Dec, End stage renal disease N18.6 and Valvular heart disease I38 [place] [id number] [place] [address]84- 5731 Nov, [address] [id number] [place] [address] 10651- 0490 Nov, long-term current use of anticoagulant Z79.01 [address] [id number] [place] [address] 02775- 1182 Nov, Recurrent major depressive disorder, in full remission F33.42 ; 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.2 ; Atrial fibrillation, unspecified type I48.91 and Shaking chills R68.83 [address] [id number] [place] [address] 04442- 0165 Nov, [address] [id number] [place] [address] 62505- 5248 Nov, [address] [address] [address]- [address] Oct, long-term current use of anticoagulant Z79.01 [facility], [place] [address] [place] [address] 83465- 2136 Oct, long-term current use of anticoagulant Z79.01 [facility], [place] [id number] [place] [address] 65672- 1726 Oct, 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 Z79.01 [facility], [place] [id number] [place] [address] 07607 2546 Oct, 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 Z79.01 [facility], [place] [id number] [place] [address] 20927- 1031 Oct, long-term current use of anticoagulant Z79.01 [facility] [place] [id number] [place] [address] 93800- 8046 Oct, long-term current use of anticoagulant Z79.01 [facility] [place] [id number] [place] [address] 66287- 3037 Oct, long-term current use of anticoagulant Z79.01 [facility] [place] [id number] [place] [address] 38236- 4206 Sep, [facility] [place] [id number] [place] [address] 04147- 1927 Sep, long-term current use of anticoagulant Z79.01 [facility] [place] [id number] [place] [address] 41312- 2546 Sep, long-term current use of anticoagulant Z79.01 [facility], [place] [address] [place] [address] 28117 2546 Sep, long-term current use of anticoagulant Z79.01 [facility] [place] [id number] [place] [address] 62999- 2546 Sep, long-term current use of anticoagulant Z79.01 [facility], [place] [address] [place] [address] 63630- 2546 Sep, long-term current use of anticoagulant Z79.01 [facility], [place] [address] [address] Sep, 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 Z79.01 [facility], [place] [address], [place] [address] Aug, long-term current use of anticoagulant Z79.01 [facility], [place] [address] [place] [address] 41305- 0658 Aug, long-term current use of anticoagulant Z79.01 [facility], [place] [address] [place] [address] 382012- 6059 Aug, long-term current use of anticoagulant Z79.01 [facility] [place] [id number] [place] [address] 79285- 9696 July, [facility] [place] [id number] [place] [address] 68240- 2276 July, long-term current use of anticoagulant Z79.01 [facility] [place] [address], [place] [address] July, long-term current use of anticoagulant Z79.01 [facility], [place] [address], [place] [address] July, 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 Z79.01 [facility], [place] [address], [place] [address] July, long-term current use of anticoagulant Z79.01 [facility], [place] [address], [place] [address] July, [facility], [place] [id number] [address] July, 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 Z79.01 [facility], [place] [address], [place] [address] July, [facility], [place] [id number] [address] July, long-term current use of anticoagulant Z79.01 [address] [id number] [place] [address] 64983- 9146 Jun, long-term current use of anticoagulant Z79.01 [address] [id number] [place] [address] 467908- 7816 Jun, long-term current use of anticoagulant Z79.01 [address] [id number] [place] [address] 54571- 7536 Jun, 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 Z79.01 [address] [id number] [place] [address] 997344- 2226 Jun, long-term current use of anticoagulant Z79.01 [address] [id number] [place] [address] 82030- 2186 Jun, Fatigue, unspecified type R53.83 and Non-intractable vomiting with nausea, unspecified vomiting type R11.2 [address] [address] [place] [address] 96079- 6367 Jun, long-term current use of anticoagulant Z79.01 and Non- intractable vomiting with nausea, unspecified vomiting type R11.2 [address] [address] [place] [address] 33281- 1960 May, long-term current use of anticoagulant Z79.01 [address] [address] [place] [address] 414570- 2346 May, long-term current use of anticoagulant Z79.01 [address] [address] [place] [address] 20255- 1156 May, [address] [id number] [place] [address] 155052- 7766 May, long-term current use of anticoagulant Z79.01 [address] [id number] [place] [address] 054647- 4229 May, long-term current use of anticoagulant Z79.01 [address] [address] [place] [address] 52840- 9789 May, Fall, initial encounter W19.XXXA ; Toe pain, right M79.674 and Dizziness R42 [address] [id number] [place] [address] 42453- 6413 May, 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 Z79.01 [address] [id number] [place] [address] 96095- 8259 May, 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 Z79.01 [address] [id number] [place] [address] 11609- 1492 May, long-term current use of anticoagulant Z79.01 [address] [id number] [place] [address] 26692- 3872 Apr, [address] [id number] [place] [address] 68084- 0676 Apr, 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 Z79.01 [address] [id number] [place] [address] 68240- 0224 Apr, long-term current use of anticoagulant Z79.01 [address] [id number] [place] [address] 86191- 0170 Apr, 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 Z79.01 ; Hemodialysis -associated hypotension I95.3 ; Varicose veins of left lower extremity I83.92 and Advance directive discussed with patient Z71.89 [address] [id number] [place] [address] 84741- 7770 Mar, [address] [id number] [place] [address] 43748- 2651 Mar, 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 Z79.01 [address] [id number] [place] [address] 63717- 1948 Mar, long-term current use of anticoagulant Z79.01 [address] [address], [place] [address]- 0887 Mar, [address] [id number] [place] [address] 80462- 3937 Mar, long-term current use of anticoagulant Z79.01 and Encounter for therapeutic drug level monitoring Z51.81 [address] [id number] [place] [address] 26391- 9444 Mar, Atrial fibrillation, unspecified type I48.91 [address] [id number] [place] [address] 79149- 3105 Feb, Atrial fibrillation, unspecified type I48.91 [address] [address] [place] [address] 69785- 4912 Feb, Atrial fibrillation, unspecified type I48.91 [address] [address] [place] [address] 69876- 2181 Feb, Chronic anticoagulation Z79.01 ; Chronic fatigue R53.82 ; Hemodialysis-associated hypotension I95.3 ; 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.2 and End stage renal disease N18.6 [address] [place] [address] 59214- 5760 Feb, [address] [place] [address] 74248- 8128 Feb, Atrial fibrillation, unspecified type I48.91 [address] [place] [address] 60790- 6576 Feb, [address] [place] [place] [address] 38231- 1016 Jan, Atrial fibrillation, unspecified type I48.91 [address], [place] [address]- 5071 Jan, Atrial fibrillation, unspecified type I48.91 [address] [place] [place] [address] 54804- 0728 Jan, Atrial fibrillation, unspecified type I48.91 ; Insomnia, unspecified type G47.00 ; End stage renal disease N18.6 and Valvular heart disease I38 [id number] [place] [address] 89861- 2521 Jan, [id number] [place] [address] 94698- 5643 Jan, Atrial fibrillation, unspecified type I48.91 [address] [id number] [place] [address] 67577- 8575 Jan, [address] [address] 63125- 4871 Jan, [address] [id number] [place] [address] 15913- 1652 Dec, [address] [address] 18028- 8596 Nov, Hypotension, unspecified hypotension type I95.9 ; Systolic ejection murmur I38 and Insomnia, unspecified type G47.00 [address] [id number] [place] [address] 97620- 3350 Oct, [address] [id number] [place] [address] 17116- 2642 Oct, [address] [id number] [place] [address] 76923- 2095 Aug, Screening for diabetes mellitus Z13.1 ; 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 and Systolic ejection murmur I38 [address] [id number] [place] [address] 13660- 8702 July, Cough R05 IMMUNIZATIONS No Known Immunizations SOCIAL HISTORY Never Assessed REASON FOR VISIT Lab PLAN OF CARE VITAL SIGNS MEDICATIONS No Known Medications RESULTS Name Result Date Reference Range INR (IN HOUSE) 2016-11-26 INR 1.4 1.10 - 3.30 PREVIOUS INR 1.7 CURRENT COUMADIN DOSE 7 mg qd NEW COUMADIN DOSE Lot # [id number] Exp date 05/2017 PROCEDURES Procedure Date Ordered Result Body Site PROTHROMBIN TIME Nov 26, 2016 INSTRUCTIONS MEDICATIONS ADMINISTERED No Known Medications MEDICAL (GENERAL) HISTORY Type Description Date Medical History Decreased Kidney Function Medical History Hypertension Medical History Hyperlipidemia Medical History oil heaterman use of coumadin Medical History Dialysis Surgical History tonsillectomy and adenoidectomy Surgical History appendectomy Surgical History Partial Hysterectomy Surgical History left knee replacement Hospitalization History Chest Tube-[facility] 03/2015 Hospitalization History Fluid on lungs-[facility] Hospitalization History ER -shunt malfunction 10/2016 Hospitalization History ER 12/01/2016 Hospitalization History Broken left arm and fractured pelvis 12/2016 Hospitalization History back pain - [facility] ED visit [facility] 03/07/17 Hospitalization History [facility]- [place]- SOA, Fluid Overload 04/12/17 Hospitalization History [facility]- [place]- Bleeding/Needs stitches 04/20/2017 Hospitalization History [facility] - Shortness of breath 05/29/17
--- OUTSIDE RECORDS SUMMARY | 2018-04-13 16:03 | XMS REPORT ---
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 Name Role Phone NALLELY SOLIMAN Unavailable PROBLEMS Type Condition ICD9-CM Code DAY68-TM Code Onset Dates Condition Status SNOMED Code Problem Chronic fatigue R53.82 Active 40083820 Problem Recurrent major depressive disorder, in full remission F33.42 Active 787901560 Problem FPC current use of anticoagulant Z79.01 Active 703638874 Problem Cardiomegaly I51.7 Active 8570428 Problem Psychophysiological insomnia F51.04 Active 197925004 Problem Anxiety state, unspecified F41.1 Active 716346197 Problem Moderate episode of recurrent major depressive disorder F33.1 Active 288443563 Problem Constipation, unspecified constipation type K59.00 Active 56792791 Problem Depressive disorder, not elsewhere classified F32.9 Active 52352527 Problem 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 Active 201621 Problem Insomnia, unspecified type G47.00 Active 655894787 Problem Chronic atrial fibrillation I48.2 Active 126045071 Problem Valvular heart disease I38 Active 880308 Problem End stage renal disease N18.6 Active 09544058 Problem Kidney failure N19 Active 42834161 Problem 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 086124813 Problem Hypotension, unspecified hypotension type I95.9 Active 68621032 Problem 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 237248458 ALLERGIES No Information ENCOUNTERS Encounter Location Date Diagnosis [facility] [address] [facility] [id number] [address] July, Seasonal allergic rhinitis, unspecified trigger J30.2 [facility] [address] [facility] [id number], [place] [address] Jun, Wheezes R06.2 ; Seasonal allergic rhinitis, unspecified trigger J30.2 and Diarrhea, unspecified type R19.7 [facility] [id number] [place] [address]13- 4353 May, Cough R05 and Shortness of breath R06.02 [place] [address] [address] May, Adverse effect of unspecified systemic antibiotic, initial encounter T36.95XA [place] [address] [address]- [address] 15 May, 2017 Adverse effect of unspecified systemic antibiotic, initial encounter T36.95XA ; Toxic gastroenteritis and colitis K52.1 and Cough R05 [place] [address] [address]- [address]29 May, Shortness of breath R06.02 and Cough R05 [place] [id number] [place] [address] 76689- 0646 May, [place] [address] 42[address]- [address] May, Cough R05 ; Kidney failure N19 ; Atrial fibrillation, unspecified type I48.91 and Cardiomegaly I51.7 [place] [id number] [place] [address] 57873- 1153 May, Cough R05 [place] [id number] [place] [address] 89091- 3309 May, [facility] [id number] [place] [id number] Apr, Dental examination Z01.20 [place] [id number] [place] [address] 28377- 9107 Mar, [place] [address] 31064- [address] Mar, Hemoglobin low D64.9 [place] [id number] [place] [address] 29632- 3305 Feb, Atrial fibrillation, unspecified type I48.91 ; End stage renal disease N18.6 ; Psychophysiological insomnia F51.04 ; Dark stools R19.5 ; Valvular heart disease I38 and Constipation, unspecified constipation type K59.00 [place] [address] [place] [address] 10792- 7476 Feb, 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.2 [place] [id number] [place] [address] 34055- 3646 Feb, Depressive disorder, not elsewhere classified F32.9 ; Anxiety state, unspecified F41.1 and Cognitive decline R41.89 [place] [id number] [place] [address] 70437- 5776 Jan, Depressive disorder, not elsewhere classified F32.9 ; Anxiety state, unspecified F41.1 and Cognitive decline R41.89 [place] [id number] [place] [address] 06491- 2410 Jan, Moderate episode of recurrent major depressive disorder F33.1 ; 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.2 and Atrial fibrillation, unspecified type I48.91 [place] [id number] [place] [address] 17813- 2250 Jan, Depressive disorder, not elsewhere classified F32.9 ; Anxiety state, unspecified F41.1 and Cognitive decline R41.89 [facility] [address] [place] [id number] Dec, End stage renal disease N18.6 and Valvular heart disease I38 [place] [address] [place] [address] 75483- 1281 Nov, [place] [id number] [place] [address] 16643- 1732 Nov, rn long term care current use of anticoagulant Z79.01 [place] [address] [place] [address] 85127- 1646 07 Nov, 2016 Recurrent major depressive disorder, in full remission F33.42 ; 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.2 ; Atrial fibrillation, unspecified type I48.91 and Shaking chills R68.83 [place] [id number] [place] [address] 71554 2546 Nov, [place] [id number] [place] [address] 18128 2546 Nov, [place] [id number] [place] [address] 33207- 0446 Oct, rn long term care current use of anticoagulant Z79.01 [place] [id number] [place] [address] 74694 2546 Oct, rn long term care current use of anticoagulant Z79.01 [place] [id number] [place] [address] 43151 2546 Oct, rn long term care current use of anticoagulant Z79.01 [place] [address] 25377- 5166 Oct, [facility]PC current use of anticoagulant Z79.01 [place] [id number] [place] [address] 27843 2548 Oct, rn long term care current use of anticoagulant Z79.01 [place] [id number] [place] [address] 88489- 5363 Oct, [facility]PC current use of anticoagulant Z79.01 [place] [id number] [place] [address] 64577- 5336 Oct, rn long term care current use of anticoagulant Z79.01 [place] [id number] [place] [address] 25240 2546 Sep, [place] [id number] [place] [address] 35976 2546 Sep, rn long term care current use of anticoagulant Z79.01 [place] [id number] [place] [address] 19994 2546 Sep, FPC current use of anticoagulant Z79.01 [place] [id number] [place] [address] [id number]- 5046 Sep, rn long term care current use of anticoagulant Z79.01 [facility] [address] [place] [address] 233357- 0564 Sep, rn long term care current use of anticoagulant Z79.01 [facility] [address] [address] Sep, FPC current use of anticoagulant Z79.01 [facility] [id number] [place] [address] 87093- 7660 Sep, [facility]PC current use of anticoagulant Z79.01 [facility] [address] [place] [address] 167365- 2807 Aug, [facility]PC current use of anticoagulant Z79.01 [facility] [address] [place] [address] 581609- 1968 Aug, rn long term care current use of anticoagulant Z79.01 [facility] [address] [place] [address] 30574- 4919 Aug, rn long term care current use of anticoagulant Z79.01 [facility] [address] [place] [address] 45669- 4183 July, [facility] [address] [place] [address] 51858357- 2646 July, rn long term care current use of anticoagulant Z79.01 [facility] [address] [address] July, rn long term care current use of anticoagulant Z79.01 [facility] [address] [address] July, rn long term care current use of anticoagulant Z79.01 [facility] [address] [address] July, rn long term care current use of anticoagulant Z79.01 [facility] [address] [place] [address] 32818- 9046 July, [facility] [address] [address] 9309 July, [facility]PC current use of anticoagulant Z79.01 [facility] [address] [place] [address] 26190- 9794 July, [facility] [address] [place] [address] 12887- 0365 July, rn long term care current use of anticoagulant Z79.01 [facility] [address] [place] [address] 42069- 6438 Jun, [facility]PC current use of anticoagulant Z79.01 [place] [id number] [place] [address] 91896- 5174 Jun, [facility]PC current use of anticoagulant Z79.01 [place] [address] [place] [address] 07658- 3181 Jun, rn long term care current use of anticoagulant Z79.01 [place] [address] [place] [address] 52926- 8894 Jun, [facility]PC current use of anticoagulant Z79.01 [place] [address] [place] [address] 50049- 5169 Jun, Fatigue, unspecified type R53.83 and Non-intractable vomiting with nausea, unspecified vomiting type R11.2 [place] [address] [place] [address] 09670- 8743 Jun, rn long term care current use of anticoagulant Z79.01 and Non- intractable vomiting with nausea, unspecified vomiting type R11.2 [place] [id number] [place] [address] 41375- 3088 May, [facility]PC current use of anticoagulant Z79.01 [facility] [address] [place] [address] 23680- 8386 May, rn long term care current use of anticoagulant Z79.01 [place] [id number] [place] [address] 49472- 2341 May, [place] [id number] [place] [address] 56428- 0642 May, rn long term care current use of anticoagulant Z79.01 [place] [id number] [place] [address] 65166- 7537 May, rn long term care current use of anticoagulant Z79.01 [place] [address] 18693- 7291 May, Fall, initial encounter W19.XXXA ; Toe pain, right M79.674 and Dizziness R42 [place] [address] 78828- 5879 May, rn long term care current use of anticoagulant Z79.01 [place] [address] 36802- 9823 May, rn long term care current use of anticoagulant Z79.01 [place] [id number] [place] [address] 41247- 4447 May, rn long term care current use of anticoagulant Z79.01 [place] [id number] [place] [address] 96343- 7144 Apr, [place] [id number] [place] [address] 94588- 0664 Apr, rn long term care current use of anticoagulant Z79.01 [place] [id number] [place] [address] 26980- 0063 Apr, rn long term care current use of anticoagulant Z79.01 [place] [id number] [place] [address] 31715- 0184 Apr, [facility]PC current use of anticoagulant Z79.01 ; Hemodialysis -associated hypotension I95.3 ; Varicose veins of left lower extremity I83.92 and Advance directive discussed with patient Z71.89 [place] [address] 85721- 2804 Mar, [place] [address] [address] 8939 Mar, rn long term care current use of anticoagulant Z79.01 [place] [address] [address]- 7469 Mar, rn long term care current use of anticoagulant Z79.01 [place] [id number] [place] [address] 33083- 2664 Mar, [place] [id number] [place] [address] 56035- 2591 Mar, [facility]PC current use of anticoagulant Z79.01 and Encounter for therapeutic drug level monitoring Z51.81 [place] [id number] [place] [address] 53048- 9708 Mar, Atrial fibrillation, unspecified type I48.91 [place] [id number] [place] [address] 25294- 6732 Feb, Atrial fibrillation, unspecified type I48.91 [place] [id number] [place] [address] 56181- 3451 Feb, Atrial fibrillation, unspecified type I48.91 [place] [address] [place] [address] 12867- 0780 Feb, Chronic anticoagulation Z79.01 ; Chronic fatigue R53.82 ; Hemodialysis-associated hypotension I95.3 ; 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.2 and End stage renal disease N18.6 [place] [address] [address]- 0561 Feb, [place] [id number] [place] [address] 80243- 4248 Feb, Atrial fibrillation, unspecified type I48.91 [place] [address] [place] [address] 95472- 7403 Feb, [place] [id number] [place] [address] 72624- 4872 Jan, Atrial fibrillation, unspecified type I48.91 [facility] [id number] [place] [address] 33880- 0170 Jan, Atrial fibrillation, unspecified type I48.91 [facility] [id number] [place] [address] 28395- 1861 Jan, Atrial fibrillation, unspecified type I48.91 ; Insomnia, unspecified type G47.00 ; End stage renal disease N18.6 and Valvular heart disease I38 [place] [id number] [place] [address] 68250- 9313 Jan, [place] [address] 70696- 2005 Jan, Atrial fibrillation, unspecified type I48.91 [place] [address] 26389- 6057 Jan, [facility] [id number] [place] [address] 36820- 9668 Jan, [place] [id number] [place] [address] 35849- 8061 Dec, [facility] [id number] [place] [address] 20959- 8397 Nov, Hypotension, unspecified hypotension type I95.9 ; Systolic ejection murmur I38 and Insomnia, unspecified type G47.00 [facility] [id number] [place] [address] 05079- 7569 Oct, [facility] [address] 55813- 5655 Oct, [place] [address] 05377- 2708 Aug, Screening for diabetes mellitus Z13.1 ; 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 and Systolic ejection murmur I38 [place] [address] [place] [address]- 0106 July, Cough R05 IMMUNIZATIONS No Known Immunizations SOCIAL HISTORY Never Assessed REASON FOR VISIT Triage-KATHRYN Rowe PLAN OF CARE VITAL SIGNS MEDICATIONS Unknown Medications RESULTS No Results PROCEDURES No Known procedures INSTRUCTIONS MEDICATIONS ADMINISTERED No Known Medications MEDICAL (GENERAL) HISTORY Type Description Date Medical History Decreased Kidney Function Medical History Hypertension Medical History Hyperlipidemia Medical History rn long term care use of coumadin Medical History Dialysis Surgical History tonsillectomy and adenoidectomy Surgical History appendectomy Surgical History Partial Hysterectomy Surgical History left knee replacement Hospitalization History Chest Tube-[facility] 03/2015 Hospitalization History Fluid on lungs-[facility] Hospitalization History ER -shunt malfunction 10/2016 Hospitalization History ER 12/01/2016 Hospitalization History Broken left arm and fractured pelvis 12/2016 Hospitalization History back pain - [facility] ED visit [facility] 03/07/17 Hospitalization History [facility] ER- [place]- SOA, Fluid Overload 04/12/17 Hospitalization History [facility] ER- [place]- Bleeding/Needs stitches 04/20/2017 Hospitalization History [facility] - Shortness of breath 05/29/17
--- OUTSIDE RECORDS SUMMARY | 2018-04-13 16:03 | XMS REPORT ---
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 Name Role Phone NALLELY SOLIMAN Unavailable PROBLEMS Type Condition ICD9-CM Code UYI58-IU Code Onset Dates Condition Status SNOMED Code Problem Chronic fatigue R53.82 Active 23310320 Problem Recurrent major depressive disorder, in full remission F33.42 Active 255580244 Problem detention current use of anticoagulant Z79.01 Active 575520868 Problem Cardiomegaly I51.7 Active 3521023 Problem Psychophysiological insomnia F51.04 Active 028046005 Problem Anxiety state, unspecified F41.1 Active 382154770 Problem Moderate episode of recurrent major depressive disorder F33.1 Active 977127015 Problem Constipation, unspecified constipation type K59.00 Active 96390865 Problem Depressive disorder, not elsewhere classified F32.9 Active 05872871 Problem 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 Active 166586 Problem Insomnia, unspecified type G47.00 Active 680094260 Problem Chronic atrial fibrillation I48.2 Active 742623931 Problem Valvular heart disease I38 Active 954647 Problem End stage renal disease N18.6 Active 95986643 Problem Kidney failure N19 Active 45019506 Problem 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 268969860 Problem Hypotension, unspecified hypotension type I95.9 Active 77407347 Problem 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 575036045 ALLERGIES Substance Reaction Event Type Date Status Zantac Unknown Drug Allergy Jun, Active Tetracycline HCl Unknown Drug Allergy Jun, Active Sulfamethoxazole-Trimethoprim Unknown Drug Allergy Jun, Active Penicillin V Potassium Unknown Drug Allergy Jun, Active Betadine Unknown Drug Allergy Jun, Active narcotics avoid them Non Drug Allergy Jun, Active ENCOUNTERS Encounter Location Date Diagnosis [facility] [address] [facility] [id number] [address] July, Seasonal allergic rhinitis, unspecified trigger J30.2 [facility] [address] [id number] [place] [address] Jun, Wheezes R06.2 ; Seasonal allergic rhinitis, unspecified trigger J30.2 and Diarrhea, unspecified type R19.7 [facility] [address] [address] May, Cough R05 and Shortness of breath R06.02 [place] [address] [address] May, Adverse effect of unspecified systemic antibiotic, initial encounter T36.95XA [place] [address] [address] May, 2017 Adverse effect of unspecified systemic antibiotic, initial encounter T36.95XA ; Toxic gastroenteritis and colitis K52.1 and Cough R05 [facility] [address] [address] May, Shortness of breath R06.02 and Cough R05 [place] [address] [address] May, [facility] [address] [address] May, Cough R05 ; Kidney failure N19 ; Atrial fibrillation, unspecified type I48.91 and Cardiomegaly I51.7 [facility] [address] [address] May, Fever, unspecified fever cause R50.9 and Cough R05 [place] [address] [address] May, [facility] [address] [id number] Apr, Dental examination Z01.20 [place] [address] [address] Mar, [place] [address], [place] [address] Mar, Hemoglobin low D64.9 [place] [address] [place] [id number] [place] [address]- [address] Feb, Atrial fibrillation, unspecified type I48.91 ; End stage renal disease N18.6 ; Psychophysiological insomnia F51.04 ; Dark stools R19.5 ; Valvular heart disease I38 and Constipation, unspecified constipation type K59.00 [place] [address] [place] [id number] [place] [address] 71464- 9805 Feb, 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.2 [place] [address] [place] [id number] [place] [address] 45975- 3460 Feb, Depressive disorder, not elsewhere classified F32.9 ; Anxiety state, unspecified F41.1 and Cognitive decline R41.89 [place] [address] [place] [id number] [place] [address] 90628- 3120 Jan, Depressive disorder, not elsewhere classified F32.9 ; Anxiety state, unspecified F41.1 and Cognitive decline R41.89 [place] [address] [place] [id number] [place] [address] 34841- 6508 Jan, Moderate episode of recurrent major depressive disorder F33.1 ; 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.2 and Atrial fibrillation, unspecified type I48.91 [place] [address] [place] [id number] [place] [address] 71807- 2252 Jan, Depressive disorder, not elsewhere classified F32.9 ; Anxiety state, unspecified F41.1 and Cognitive decline R41.89 [facility] [address] [place] [id number] Dec, End stage renal disease N18.6 and Valvular heart disease I38 [place] [address], [place] [address] Nov, [place] [address] [place] [id number] [place] [address] 57866- 5947 Nov, 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 current use of anticoagulant Z79.01 [place] [address] [place] [id number] [place] [address] 00227- 4014 Nov, Recurrent major depressive disorder, in full remission F33.42 ; 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.2 ; Atrial fibrillation, unspecified type I48.91 and Shaking chills R68.83 [place] [address] [place] [id number] [place] [address] 63217- 3232 Nov, [place] [address] [place] [id number] [place] [address] 54639- 5944 Nov, [place] [address] [address]- [address] Oct, detention current use of anticoagulant Z79.01 [place] [address] [place] [id number] [place] [address] 62410- 9650 Oct, 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 current use of anticoagulant Z79.01 [place] [address] [place] [id number] [place] [address] 77584- 2101 Oct, detention current use of anticoagulant Z79.01 [place] [address] [place] [id number] [place] [address] 44357- 5827 Oct, 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 current use of anticoagulant Z79.01 [place] [address] [place] [id number] [place] [address] 41930- 7148 Oct, detention current use of anticoagulant Z79.01 [place] [address] [place] [id number] [place] [address] 72980- 6554 Oct, 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 current use of anticoagulant Z79.01 [place] [address] [place] [id number] [place] [address] 38781- 0355 Oct, 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 current use of anticoagulant Z79.01 [place] [address] [place] [id number] [place] [address] 15447- 8198 Sep, [place] [address] [address] Sep, 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 current use of anticoagulant Z79.01 [facility] [address] [place] [address] 634463- 8696 Sep, detention current use of anticoagulant Z79.01 [facility] [address] [place] [address] 35417- 7686 Sep, 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 current use of anticoagulant Z79.01 [facility] [id number] [place] [address] 24006- 6790 Sep, detention current use of anticoagulant Z79.01 [facility] [address] [place] [id number] [place] [address] 820662- 4925 Sep, detention current use of anticoagulant Z79.01 [facility] [address] [place] [id number] [place] [address] 767620- 8446 Sep, detention current use of anticoagulant Z79.01 [facility] [id number] [place] [address] 12829- 2443 Aug, detention current use of anticoagulant Z79.01 [facility] [address] [place] [address] 42026- 9000 Aug, detention current use of anticoagulant Z79.01 [facility] [address] [place] [address] 69767- 9522 Aug, detention current use of anticoagulant Z79.01 [facility] [address] [place] [address] 11483- 3816 July, [facility] [id number] [place] [address] 83935906- 5506 July, 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 current use of anticoagulant Z79.01 [facility] [address] [place] [address] 612191- 6476 July, 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 current use of anticoagulant Z79.01 [facility] [address] [place] [address] 50759- 0201 July, 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 current use of anticoagulant Z79.01 [facility] [address], [place] [address] July, 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 current use of anticoagulant Z79.01 [facility] [address], [place] [address] July, [facility] [address] [place] [address] 98196- 1478 July, detention current use of anticoagulant Z79.01 [facility] [address] [place] [address] 35506- 1381 July, [facility] [id number] [place] [address] 45141- 2725 July, 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 current use of anticoagulant Z79.01 [place] [address] [address] [id number] [place] [address] 77184- 2259 Jun, detention current use of anticoagulant Z79.01 [facility] [address] [place] [address] 66391- 0710 Jun, detention current use of anticoagulant Z79.01 [place] [address] [place] [address] 04205- 2920 Jun, detention current use of anticoagulant Z79.01 [place] [address], [place] [address] Jun, detention current use of anticoagulant Z79.01 [facility] [address], [place] [address] Jun, Fatigue, unspecified type R53.83 and Non-intractable vomiting with nausea, unspecified vomiting type R11.2 [facility] [address] [place] [address] 70340- 0193 Jun, 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 current use of anticoagulant Z79.01 and Non- intractable vomiting with nausea, unspecified vomiting type R11.2 [place] [address] [place] [id number] [place] [address] 60534- 3803 May, detention current use of anticoagulant Z79.01 [place] [address] [address] May, 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 current use of anticoagulant Z79.01 [place] [address] [place] [id number] [place] [address] 35840- 7866 May, [place] [address] [address]- 7524 May, detention current use of anticoagulant Z79.01 [place] [address] 53170- 5774 May, detention current use of anticoagulant Z79.01 [place] [address] [place] [id number] [place] [address] 23236- 3614 May, Fall, initial encounter W19.XXXA ; Toe pain, right M79.674 and Dizziness R42 [place] [address] [place] [id number] [place] [address] 02485- 3554 May, detention current use of anticoagulant Z79.01 [place] [address] [place] [id number] [place] [address] 07866- 0982 May, detention current use of anticoagulant Z79.01 [place] [address] [place] [id number] [place] [address] 89161- 3540 May, 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 current use of anticoagulant Z79.01 [facility] [id number] [place] [address] 36731 2546 Apr, [place] [address] [address] [id number] [place] [address] 41954- 6807 Apr, detention current use of anticoagulant Z79.01 [place] [address] [place] [id number] [place] [address] 09482- 0516 Apr, detention current use of anticoagulant Z79.01 [place] [address] [place] [address] [address] 07 Apr, 2016 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 current use of anticoagulant Z79.01 ; Hemodialysis -associated hypotension I95.3 ; Varicose veins of left lower extremity I83.92 and Advance directive discussed with patient Z71.89 [place] [address] [place] [id number] [place] [address] 89712- 6172 Mar, [place] [address] [place] [id number] [place] [address] 99312- 6095 Mar, 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 current use of anticoagulant Z79.01 [place] [address] [place] [id number] [place] [address] 95534- 2120 Mar, 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 current use of anticoagulant Z79.01 [place] [address] [place] [id number] [place] [address] 63635- 0107 Mar, [place] [address] [place] [id number] [place] [address] 97683- 9788 Mar, 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 current use of anticoagulant Z79.01 and Encounter for therapeutic drug level monitoring Z51.81 [place] [address] [place] [id number] [place] [address] 92997- 4045 Mar, Atrial fibrillation, unspecified type I48.91 [place] [address] [place] [id number] [place] [address] 73041- 9087 Feb, Atrial fibrillation, unspecified type I48.91 [place] [address] [place] [id number] [place] [address] 04391- 6628 Feb, Atrial fibrillation, unspecified type I48.91 [place] [address] [place] [id number] [place] [address] 67389- 0562 Feb, Chronic anticoagulation Z79.01 ; Chronic fatigue R53.82 ; Hemodialysis-associated hypotension I95.3 ; 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.2 and End stage renal disease N18.6 [place] [address] [place] [address] 94708- 4989 Feb, [place] [address] [place] [id number] [place] [address] 81384- 2384 Feb, Atrial fibrillation, unspecified type I48.91 [facility] [id number] [place] [address] 17257- 3347 Feb, [facility] [id number] [place] [address] 89477- 5733 Jan, Atrial fibrillation, unspecified type I48.91 [facility] [id number] [place] [address] 20528- 2480 Jan, Atrial fibrillation, unspecified type I48.91 [place] [address] [place] [id number] [place] [address] 65499- 2324 Jan, Atrial fibrillation, unspecified type I48.91 ; Insomnia, unspecified type G47.00 ; End stage renal disease N18.6 and Valvular heart disease I38 [place] [address] [place] [id number] [place] [address] 74812- 3125 Jan, [facility] [address] [id number] [place] [address] 13070- 2643 Jan, Atrial fibrillation, unspecified type I48.91 [facility] [address] [id number] [place] [address] 99888- 8968 Jan, [facility] [address] [place] [address] 84392- 8732 Jan, [facility] [id number] [place] [address] 07529- 4560 Dec, [facility] [id number] [place] [address] 40746- 4813 Nov, Hypotension, unspecified hypotension type I95.9 ; Systolic ejection murmur I38 and Insomnia, unspecified type G47.00 [facility] [id number] [place] [address] 92354- 1883 Oct, [facility] [id number] [place] [address] 18819- 1782 Oct, [facility] [address] [facility] [id number] [place] [address] 9802 Aug, Screening for diabetes mellitus Z13.1 ; 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 and Systolic ejection murmur I38 [facility] [address] [facility] [id number] [place] [address] July, Cough R05 IMMUNIZATIONS No Known Immunizations SOCIAL HISTORY Never Assessed REASON FOR VISIT Physical and INR PLAN OF CARE Activity Details Follow Up 2 Months with Josefa f/u CHRanjit Reason: VITAL SIGNS Height 67 in 2016-07-02 Weight 112 lbs 2016-07-02 Temperature 98.4 degrees Fahrenheit 2016-07-02 Heart Rate 60 bpm 2016-07-02 Respiratory Rate 16 2016-07-02 BMI 17.54 kg/m2 2016-07-02 Blood pressure systolic 110 mmHg 2016-07-02 Blood pressure diastolic 60 mmHg 2016-07-02 MEDICATIONS Medication Instructions Dosage Frequency Start Date End Date Duration Status Renvela 800 MG Orally Three times a day 2 tablets 8h 20 Active Amiodarone HCl 100 MG Orally Once a day 1 tablet 24h Active Atorvastatin Calcium 40 mg Orally Once a day 1 tablet 24h 30 Active Sensipar 60 mg Orally Once a day 2 tablets 24h Active Metoprolol Tartrate 25 MG Orally Twice a day 1 tablet with food 12h Active ClomiPRAMINE HCl 50 mg Orally Once a day 2 capsules 24h 30 Active Coumadin 5 mg Orally Wednesday - Wednesday along with 1mg tablet to equal 6mg total daily and then 5mg on Wednesday and Wednesday 1 tablet Apr, Active Coumadin 1 MG Orally Wednesday-Wednesday along with 5mg tablet to equal 6mgs total 1 tablet Active RESULTS Name Result Date Reference Range INR (IN HOUSE) 2016-07-02 INR 1.5 1.10 - 3.30 PREVIOUS INR 1.6 CURRENT COUMADIN DOSE NEW COUMADIN DOSE Lot # [id number] Exp date 03/2017 PROCEDURES Procedure Date Ordered Result Body Site PROTHROMBIN TIME July 02, 2016 FORMERLY [facility], [facility] VISIT ESTABLISHED PATIENT July 02, 2016 INSTRUCTIONS MEDICATIONS ADMINISTERED No Known Medications MEDICAL (GENERAL) HISTORY Type Description Date Medical History Decreased Kidney Function Medical History Hypertension Medical History Hyperlipidemia Medical History 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 use of coumadin Medical History Dialysis Surgical History tonsillectomy and adenoidectomy Surgical History appendectomy Surgical History Partial Hysterectomy Surgical History left knee replacement Hospitalization History Chest Tube-[facility] 03/2015 Hospitalization History Fluid on lungs-[facility] Hospitalization History ER -shunt malfunction 10/2016 Hospitalization History ER 12/01/2016 Hospitalization History Broken left arm and fractured pelvis 12/2016 Hospitalization History back pain - [facility] ED visit [facility] 03/07/17 Hospitalization History [facility] [place]- SOA, Fluid Overload 04/12/17 Hospitalization History ER- [place]- Bleeding/Needs stitches 04/20/2017 Hospitalization History ER - Shortness of breath 05/29/17
--- OUTSIDE RECORDS SUMMARY | 2018-04-13 16:04 | XMS REPORT ---
Author Author NALLELY SOLIMAN Organization [facility] Address [address] [place] [address] Care Team Providers Care Outside Upholsterer Name Role Phone NALLELY SOLIMAN Unavailable PROBLEMS Type Condition ICD9-CM Code SWH86-XO Code Onset Dates Condition Status SNOMED Code Problem Chronic fatigue R53.82 Active 70842457 Problem Recurrent major depressive disorder, in full remission F33.42 Active 631930405 Problem halfway current use of anticoagulant Z79.01 Active 329499706 Problem Cardiomegaly I51.7 Active 7926019 Problem Psychophysiological insomnia F51.04 Active 748338493 Problem Anxiety state, unspecified F41.1 Active 419266052 Problem Moderate episode of recurrent major depressive disorder F33.1 Active 958416156 Problem Constipation, unspecified constipation type K59.00 Active 24523253 Problem Depressive disorder, not elsewhere classified F32.9 Active 83680075 Problem 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 Active 322901 Problem Insomnia, unspecified type G47.00 Active 966840998 Problem Chronic atrial fibrillation I48.2 Active 631112360 Problem Valvular heart disease I38 Active 701501 Problem End stage renal disease N18.6 Active 29556494 Problem Kidney failure N19 Active 25594022 Problem 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 011824575 Problem Hypotension, unspecified hypotension type I95.9 Active 16659889 Problem 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 536561964 ALLERGIES No Information ENCOUNTERS Encounter Location Date Diagnosis [facility] [address] [facility] [id number] [address] July, Seasonal allergic rhinitis, unspecified trigger J30.2 [facility] [address] [facility] [id number], [place] [address] Jun, Wheezes R06.2 ; Seasonal allergic rhinitis, unspecified trigger J30.2 and Diarrhea, unspecified type R19.7 [facility] [id number] [place] [address] 12171- 3221 May, Cough R05 and Shortness of breath R06.02 [facility] [address] [address] May, Adverse effect of unspecified systemic antibiotic, initial encounter T36.95XA [facility] [address] [address]- [address] 15 May, 2017 Adverse effect of unspecified systemic antibiotic, initial encounter T36.95XA ; Toxic gastroenteritis and colitis K52.1 and Cough R05 [facility] [address] 91167- 2366 May, Shortness of breath R06.02 and Cough R05 [facility] [id number] [place] [address] 75343- 6559 May, [facility] [address] 51275- 1027 May, Cough R05 ; Kidney failure N19 ; Atrial fibrillation, unspecified type I48.91 and Cardiomegaly I51.7 [facility] [id number] [place] [address] 89805- 8323 May, Cough R05 [facility] [id number] [place] [address] 74459- 0243 May, [facility] [id number] [place] [address] [id number] Apr, Dental examination Z01.20 [facility] [id number] [place] [address] 56615- 7667 Mar, [facility] [address] 31041- 7436 Mar, Hemoglobin low D64.9 [facility] [id number] [place] [address] 82107- 6558 Feb, Atrial fibrillation, unspecified type I48.91 ; End stage renal disease N18.6 ; Psychophysiological insomnia F51.04 ; Dark stools R19.5 ; Valvular heart disease I38 and Constipation, unspecified constipation type K59.00 [facility] [address] [place] [address] 71726- 1045 Feb, 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.2 [facility] [id number] [place] [address] 66779- 4328 Feb, Depressive disorder, not elsewhere classified F32.9 ; Anxiety state, unspecified F41.1 and Cognitive decline R41.89 [facility] [id number] [place] [address] 40759- 3286 Jan, Depressive disorder, not elsewhere classified F32.9 ; Anxiety state, unspecified F41.1 and Cognitive decline R41.89 [facility] [id number] [place] [address] 51309- 1211 Jan, Moderate episode of recurrent major depressive disorder F33.1 ; 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.2 and Atrial fibrillation, unspecified type I48.91 [facility] [id number] [place] [address] 46926- 1285 Jan, Depressive disorder, not elsewhere classified F32.9 ; Anxiety state, unspecified F41.1 and Cognitive decline R41.89 [facility] [address] [place] [id number] Dec, End stage renal disease N18.6 and Valvular heart disease I38 [place] [address] [place] [address] 46428- 5624 Nov, [facility] [id number] [place] [address] 07542- 7996 Nov, 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 [place] [address] [place] [address] 27129- 8471 07 Nov, 2016 Recurrent major depressive disorder, in full remission F33.42 ; 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.2 ; Atrial fibrillation, unspecified type I48.91 and Shaking chills R68.83 [facility] [id number] [place] [address] 88217 2546 Nov, [facility] [id number] [place] [address] 44740 2546 Nov, [facility] [id number] [place] [address] 42247- 0736 Oct, 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 [facility] [id number] [place] [address] 59329 2546 Oct, 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 [facility] [id number] [place] [address] 69563 2546 Oct, 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 [facility] [address] 06924- 4176 Oct, halfway current use of anticoagulant Z79.01 [facility] [id number] [place] [address] 34281 2540 Oct, 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 [facility] [id number] [place] [address] 86023- 5826 Oct, halfway current use of anticoagulant Z79.01 [facility] [id number] [place] [address] 53365- 7126 Oct, 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 [facility] [id number] [place] [address] 51704 2546 Sep, [facility] [id number] [place] [address] 42917 2546 Sep, 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 [facility] [id number] [place] [address] 85507 2546 Sep, halfway current use of anticoagulant Z79.01 [facility] [id number] [place] [address] 52824939- 9748 Sep, 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 [facility] [address] [place] [address] 042168- 3061 Sep, 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 [facility] [address] [address] Sep, halfway current use of anticoagulant Z79.01 [facility] [id number] [place] [address] 05075- 4980 Sep, halfway current use of anticoagulant Z79.01 [facility] [address] [place] [address] 817784- 6805 Aug, halfway current use of anticoagulant Z79.01 [facility] [address] [place] [address] 511866- 6396 Aug, 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 [facility] [address] [place] [address] 56593- 4707 Aug, 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 [facility] [address] [place] [address] 56380- 1226 July, [facility] [address] [place] [address] [id number]- 6946 July, 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 [facility] [address] [address] July, 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 [facility] [address] [address] July, 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 [facility] [address] [address] July, 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 [facility] [address] [place] [address] 15525- 3727 July, [facility] [address] [address] July, halfway current use of anticoagulant Z79.01 [facility] [address] [place] [address] 52587- 5327 July, [facility] [address] [place] [address] 91909- 1129 July, 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 [facility] [address] [place] [address] 83515- 8033 Jun, halfway current use of anticoagulant Z79.01 [facility] [id number] [place] [address] 35048- 0410 Jun, halfway current use of anticoagulant Z79.01 [facility] [place] [address] [place] [address] 91544- 8430 Jun, 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 [place] [place] [address] [place] [address] 34830- 9011 Jun, halfway current use of anticoagulant Z79.01 [facility] [place] [address] [place] [address] 89694- 6466 Jun, Fatigue, unspecified type R53.83 and Non-intractable vomiting with nausea, unspecified vomiting type R11.2 [facility] [place] [address] [place] [address] 38339- 7692 Jun, 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 and Non- intractable vomiting with nausea, unspecified vomiting type R11.2 [facility] [id number] [place] [address] 08501- 6498 May, halfway current use of anticoagulant Z79.01 [facility] [address] [place] [address] 20164- 2051 May, 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 [facility] [place] [id number] [place] [address] 67168- 2550 May, [facility] [id number] [place] [address] 86954- 9668 May, 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 [facility] [id number] [place] [address] 41984- 0864 May, 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 [place] [address] 42026- 6942 May, Fall, initial encounter W19.XXXA ; Toe pain, right M79.674 and Dizziness R42 [place] [address] 52392- 8756 May, 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 [place] [address] 21065- 9003 May, 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 [facility] [place] [id number] [place] [address] 57099- 8254 May, 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 [facility] [place] [id number] [place] [address] 04425- 4970 Apr, [facility] [id number] [place] [address] 83923- 4514 Apr, 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 [facility] [place] [id number] [place] [address] 82917- 0357 Apr, 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 [place] [place] [id number] [place] [address] 74122- 1002 Apr, halfway current use of anticoagulant Z79.01 ; Hemodialysis -associated hypotension I95.3 ; Varicose veins of left lower extremity I83.92 and Advance directive discussed with patient Z71.89 [place] [address] 50210- 6993 Mar, [facility] [address] [address] 2672 Mar, 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 [place] [address] [address]- 3901 Mar, 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 [facility] [place] [id number] [place] [address] 25933- 3254 Mar, [facility] [place] [id number] [place] [address] 48071- 7649 Mar, halfway current use of anticoagulant Z79.01 and Encounter for therapeutic drug level monitoring Z51.81 [facility] [id number] [place] [address] 41714- 3785 Mar, Atrial fibrillation, unspecified type I48.91 [facility] [id number] [place] [address] 93834- 2449 Feb, Atrial fibrillation, unspecified type I48.91 [facility] [place] [id number] [place] [address] 91844- 3905 Feb, Atrial fibrillation, unspecified type I48.91 [facility] [place] [address] [place] [address] 62037- 7540 Feb, Chronic anticoagulation Z79.01 ; Chronic fatigue R53.82 ; Hemodialysis-associated hypotension I95.3 ; 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.2 and End stage renal disease N18.6 [place] [place] [address] [address]- 2405 Feb, [facility] [id number] [place] [address] 86551- 7563 Feb, Atrial fibrillation, unspecified type I48.91 [facility] [place] [address] [place] [address] 15583- 8074 Feb, [facility] [id number] [place] [address] 60346- 6979 Jan, Atrial fibrillation, unspecified type I48.91 [facility] [id number] [place] [address] 50637- 0850 Jan, Atrial fibrillation, unspecified type I48.91 [facility] [id number] [place] [address] 04278- 4200 Jan, Atrial fibrillation, unspecified type I48.91 ; Insomnia, unspecified type G47.00 ; End stage renal disease N18.6 and Valvular heart disease I38 [facility] [place] [id number] [place] [address] 02361- 4455 Jan, [place] [address] 35467- 7720 Jan, Atrial fibrillation, unspecified type I48.91 [place] [address] 51271- 9876 Jan, [facility] [id number] [place] [address] 86217- 4457 Jan, [facility] [id number] [place] [address] 01113- 2841 Dec, [facility] [id number] [place] [address] 27374- 4176 Nov, Hypotension, unspecified hypotension type I95.9 ; Systolic ejection murmur I38 and Insomnia, unspecified type G47.00 [facility] [id number] [place] [address] 95580- 4917 Oct, [facility] [address] 94279- 1984 Oct, [place] [address] 84914- 8048 Aug, Screening for diabetes mellitus Z13.1 ; 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 and Systolic ejection murmur I38 [place] [address] [place] [address]- 9410 July, Cough R05 IMMUNIZATIONS No Known Immunizations SOCIAL HISTORY Never Assessed REASON FOR VISIT dialysis phone call PLAN OF CARE VITAL SIGNS MEDICATIONS Unknown Medications RESULTS No Results PROCEDURES No Known procedures INSTRUCTIONS MEDICATIONS ADMINISTERED No Known Medications MEDICAL (GENERAL) HISTORY Type Description Date Medical History Decreased Kidney Function Medical History Hypertension Medical History Hyperlipidemia 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 Medical History Dialysis Surgical History tonsillectomy and adenoidectomy Surgical History appendectomy Surgical History Partial Hysterectomy Surgical History left knee replacement Hospitalization History Chest Tube-[facility] 03/2015 Hospitalization History Fluid on lungs-[facility] Hospitalization History ER -shunt malfunction 10/2016 Hospitalization History ER 12/01/2016 Hospitalization History Broken left arm and fractured pelvis 12/2016 Hospitalization History back pain - [facility] ED visit [facility] 03/07/17 Hospitalization History [facility]- [facility]- SOA, Fluid Overload 04/12/17 Hospitalization History [facility]- [facility]- Bleeding/Needs stitches 04/20/2017 Hospitalization History [facility] - Shortness of breath 05/29/17
--- OUTSIDE RECORDS SUMMARY | 2018-04-13 16:04 | XMS REPORT ---
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 Name Role Phone NALLELY SOLIMAN Unavailable PROBLEMS Type Condition ICD9-CM Code SQI27-XS Code Onset Dates Condition Status SNOMED Code Problem Chronic fatigue R53.82 Active 16436548 Problem Recurrent major depressive disorder, in full remission F33.42 Active 453879233 Problem long-term current use of anticoagulant Z79.01 Active 151004934 Problem Cardiomegaly I51.7 Active 5417248 Problem Psychophysiological insomnia F51.04 Active 564357778 Problem Anxiety state, unspecified F41.1 Active 646767880 Problem Moderate episode of recurrent major depressive disorder F33.1 Active 613615388 Problem Constipation, unspecified constipation type K59.00 Active 26284259 Problem Depressive disorder, not elsewhere classified F32.9 Active 94654704 Problem 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 Active 351863 Problem Insomnia, unspecified type G47.00 Active 991492008 Problem Chronic atrial fibrillation I48.2 Active 767185962 Problem Valvular heart disease I38 Active 047087 Problem End stage renal disease N18.6 Active 33683530 Problem Kidney failure N19 Active 04195350 Problem 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 074968766 Problem Hypotension, unspecified hypotension type I95.9 Active 56119077 Problem 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 049959933 ALLERGIES No Information ENCOUNTERS Encounter Location Date Diagnosis [facility] [address] [id number], [place] [address] May, Cough R05 and Shortness of breath R06.02 [facility] [address] [id number], [place] [address] May, Adverse effect of unspecified systemic antibiotic, initial encounter T36.95XA [facility] [address] [place] [address] May, Adverse effect of unspecified systemic antibiotic, initial encounter T36.95XA ; Toxic gastroenteritis and colitis K52.1 and Cough R05 [place] [address] [id number] May, Shortness of breath R06.02 and Cough R05 [place] [address] [address] May, [place] [address] [address] May, Cough R05 ; Kidney failure N19 ; Atrial fibrillation, unspecified type I48.91 and Cardiomegaly I51.[address] [address] May, Fever, unspecified fever cause R50.9 and Cough R05 [address] [address] May, [facility] [address] [id number] Apr, Dental examination Z01.20 [place] [address] [address] Mar, [place] [id number] [place] [address]- 8672 Mar, Hemoglobin low D64.[address] [address] Feb, Atrial fibrillation, unspecified type I48.91 ; End stage renal disease N18.6 ; Psychophysiological insomnia F51.04 ; Dark stools R19.5 ; Valvular heart disease I38 and Constipation, unspecified constipation type K59.00 [place] [address] [address] Feb, 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.2 [address] [place] [address] Feb, Depressive disorder, not elsewhere classified F32.9 ; Anxiety state, unspecified F41.1 and Cognitive decline R41.89 [place] [id number] [place] [address] 8[address]- 2133 Jan, Depressive disorder, not elsewhere classified F32.9 ; Anxiety state, unspecified F41.1 and Cognitive decline R41.89 [place] [id number] [place] [address] 46[address]- 5099 Jan, Moderate episode of recurrent major depressive disorder F33.1 ; 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.2 and Atrial fibrillation, unspecified type I48.91 [place] [id number] [place] [address] 9[address]40- 8915 Jan, Depressive disorder, not elsewhere classified F32.9 ; Anxiety state, unspecified F41.1 and Cognitive decline R41.[address] [facility] [address] [place] [id number] Dec, End stage renal disease N18.6 and Valvular heart disease I38 [place] [id number] [place] [address]- 4848 Nov, [place] [id number] [place] [address] 86319- 7556 Nov, long-term current use of anticoagulant Z79.01 [place] [id number] [place] [address] 99035- 9758 Nov, Recurrent major depressive disorder, in full remission F33.42 ; 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.2 ; Atrial fibrillation, unspecified type I48.91 and Shaking chills R68.83 [place] [id number] [place] [address]31- 7203 Nov, [place] [id number] [place] [address] 52106- 7937 Nov, [place] [address] [address]- [address] Oct, long-term current use of anticoagulant Z79.01 [facility] [address] [place] [address] 77807- 2926 Oct, long-term current use of anticoagulant Z79.01 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 [id number] [place] [address] 29029- 1796 Oct, long-term current use of anticoagulant Z79.01 [facility] [id number] [place] [address] 04699- 5236 Oct, long-term current use of anticoagulant Z79.01 [facility] [id number] [place] [address] 79403- 1735 Oct, long-term current use of anticoagulant Z79.01 [facility] [id number] [place] [address] 54127- [address]36 Sep, [facility] [id number] [place] [address] 76049- 7373 Sep, long-term current use of anticoagulant Z79.01 [facility] [id number] [place] [address] 06510- 2546 Sep, long-term current use of anticoagulant Z79.01 [facility] [address] [place] [address] 19176 2546 Sep, long-term current use of anticoagulant Z79.01 [facility] [id number] [place] [address] 99874- 2546 Sep, long-term current use of anticoagulant Z79.01 [facility] [address] [place] [address] 79153- 2546 Sep, long-term current use of anticoagulant Z79.01 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 [address], [place] [address] Aug, long-term current use of anticoagulant Z79.01 [facility] [address] [place] [address] 69275- 3744 Aug, long-term current use of anticoagulant Z79.01 [facility] [id number] [place] [address] 662164- 7134 Aug, long-term current use of anticoagulant Z79.01 [facility] [id number] [place] [address] 65114- 9806 July, [facility] [id number] [place] [address] 14540- 4696 July, long-term current use of anticoagulant Z79.01 [facility] [address], [place] [address] July, long-term current use of anticoagulant Z79.01 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 [address], [place] [address] July, long-term current use of anticoagulant Z79.01 [facility] [address], [place] [address] July, 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 [address], [place] [address] July, 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 [place] [id number] [place] [address] 762113- 2096 Jun, long-term current use of anticoagulant Z79.01 [place] [id number] [place] [address] 91099- 6766 Jun, Fatigue, unspecified type R53.83 and Non-intractable vomiting with nausea, unspecified vomiting type R11.2 [place] [address] [place] [address] 11569- 6568 Jun, long-term current use of anticoagulant Z79.01 and Non- intractable vomiting with nausea, unspecified vomiting type R11.2 [address] [address] [place] [address] 01880- 4773 May, long-term current use of anticoagulant Z79.01 [place] [address] [place] [address] 879274- 8776 May, long-term current use of anticoagulant Z79.01 [address] [address] [place] [address] 90545- 2796 May, [place] [id number] [place] [address] 325596- 4966 May, long-term current use of anticoagulant Z79.01 [place] [id number] [place] [address] 586162- 9893 May, long-term current use of anticoagulant Z79.01 [place] [address] [place] [address] 43965- 2549 May, Fall, initial encounter W19.XXXA ; Toe pain, right M79.674 and Dizziness R42 [place] [id number] [place] [address] 87533- 2538 May, 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 [place] [id number] [place] [address] 81248- 3985 May, 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 [place] [id number] [place] [address] 57462- 6235 May, long-term current use of anticoagulant Z79.01 [place] [id number] [place] [address] 87335- 0672 Apr, [place] [id number] [place] [address] 97625- 6233 Apr, 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 [place] [id number] [place] [address] 59724- 2510 Apr, long-term current use of anticoagulant Z79.01 [place] [id number] [place] [address] 96598- 2114 Apr, 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 ; Hemodialysis -associated hypotension I95.3 ; Varicose veins of left lower extremity I83.92 and Advance directive discussed with patient Z71.89 [place] [id number] [place] [address] 27548- 9942 Mar, [place] [id number] [place] [address] 15037- 2423 Mar, 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 [place] [id number] [place] [address] 28187- 2527 Mar, long-term current use of anticoagulant Z79.01 [place] [address], [place] [address]- 7607 Mar, [place] [id number] [place] [address] 46165- 6173 Mar, long-term current use of anticoagulant Z79.01 and Encounter for therapeutic drug level monitoring Z51.81 [place] [id number] [place] [address] 78469- 6338 Mar, Atrial fibrillation, unspecified type I48.91 [place] [id number] [place] [address] 19500- 0113 Feb, Atrial fibrillation, unspecified type I48.91 [place] [id number] [place] [address] 17991- 1316 Feb, Atrial fibrillation, unspecified type I48.91 [place] [id number] [place] [address] 70265- 1189 Feb, Chronic anticoagulation Z79.01 ; Chronic fatigue R53.82 ; Hemodialysis-associated hypotension I95.3 ; 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.2 and End stage renal disease N18.6 [place] [address] [place] [address] 80366- 9172 Feb, [place] [address] [place] [address] 61030- 9813 Feb, Atrial fibrillation, unspecified type I48.91 [place] [address] [place] [address] 79765- 9016 Feb, [place] [address] [place] [address] 68836- 6833 Jan, Atrial fibrillation, unspecified type I48.91 [place] [address], [place] [address]- 2700 Jan, Atrial fibrillation, unspecified type I48.91 [place] [address] [place] [address] 98560- 9174 Jan, Atrial fibrillation, unspecified type I48.91 ; Insomnia, unspecified type G47.00 ; End stage renal disease N18.6 and Valvular heart disease I38 [place] [id number] [place] [address] 35939- 8924 Jan, [place] [id number] [place] [address] 82972- 7775 Jan, Atrial fibrillation, unspecified type I48.91 [place] [address] 76835- 3083 Jan, [place] [address] 93783- 1059 Jan, [place] [address] 96285- 5180 Dec, [place] [address] 64108- 2057 Nov, Hypotension, unspecified hypotension type I95.9 ; Systolic ejection murmur I38 and Insomnia, unspecified type G47.00 [place] [id number] [place] [address] 10226- 8591 Oct, [place] [id number] [place] [address] 60561- 6539 Oct, [place] [id number] [place] [address] 04346- 9503 Aug, Screening for diabetes mellitus Z13.1 ; 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 and Systolic ejection murmur I38 [place] [id number] [place] [address] 96414- 0762 July, Cough R05 IMMUNIZATIONS No Known Immunizations SOCIAL HISTORY Never Assessed REASON FOR VISIT Refill request PLAN OF CARE VITAL SIGNS MEDICATIONS Medication Instructions Dosage Frequency Start Date End Date Duration Status Coumadin 1 MG Orally Take 2 along with 5mg tab to equal 7mg total daily 1 tablet Active RESULTS No Results PROCEDURES No Known procedures INSTRUCTIONS MEDICATIONS ADMINISTERED No Known Medications MEDICAL (GENERAL) HISTORY Type Description Date Medical History Decreased Kidney Function Medical History Hypertension Medical History Hyperlipidemia 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 Medical History Dialysis Surgical History tonsillectomy and adenoidectomy Surgical History appendectomy Surgical History Partial Hysterectomy Surgical History left knee replacement Hospitalization History Chest Tube-[facility] 03/2015 Hospitalization History Fluid on lungs-[facility] Hospitalization History ER -shunt malfunction 10/2016 Hospitalization History ER 12/01/2016 Hospitalization History Broken left arm and fractured pelvis 12/2016 Hospitalization History back pain - [facility] ED visit [facility] [place] operated by [facility] 03/07/17 Hospitalization History [facility]- [facility], Fluid Overload 04/12/17 Hospitalization History [facility]- Bleeding/Needs stitches 04/20/2017 Hospitalization History [facility] - Shortness of breath 05/29/17
--- OUTSIDE RECORDS SUMMARY | 2018-04-13 16:04 | XMS REPORT ---
Author Author NALLELY SOLIMAN [facility] Address [address] [place] [address] Care Team Providers Care Dead Mail Checker Name Role Phone NALLELY SOLIMAN Unavailable PROBLEMS Type Condition ICD9-CM Code HRV09-HX Code Onset Dates Condition Status SNOMED Code Problem Chronic fatigue R53.82 Active 05494061 Problem Recurrent major depressive disorder, in full remission F33.42 Active 659686044 Problem FPC current use of anticoagulant Z79.01 Active 579478973 Problem Cardiomegaly I51.7 Active 5180166 Problem Psychophysiological insomnia F51.04 Active 631370706 Problem Anxiety state, unspecified F41.1 Active 390517889 Problem Moderate episode of recurrent major depressive disorder F33.1 Active 985800310 Problem Constipation, unspecified constipation type K59.00 Active 65719438 Problem Depressive disorder, not elsewhere classified F32.9 Active 59464981 Problem 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 Active 452238 Problem Insomnia, unspecified type G47.00 Active 726444563 Problem Chronic atrial fibrillation I48.2 Active 879630790 Problem Valvular heart disease I38 Active 663778 Problem End stage renal disease N18.6 Active 82805672 Problem Kidney failure N19 Active 82660242 Problem 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 296167933 Problem Hypotension, unspecified hypotension type I95.9 Active 81015166 Problem 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 349976725 ALLERGIES No Information ENCOUNTERS Encounter Location Date Diagnosis [facility] [id number], [place] [address] May, Cough R05 and Shortness of breath R06.02 [facility] [id number], [place] [address] May, Adverse effect of unspecified systemic antibiotic, initial encounter T36.95XA [facility] [address] [place] [address] May, Adverse effect of unspecified systemic antibiotic, initial encounter T36.95XA ; Toxic gastroenteritis and colitis K52.1 and Cough R05 [address] [address] [id number] May, Shortness of breath R06.02 and Cough R05 [address] [address] [address] [address] May, [place] [address] [address] May, Cough R05 ; Kidney failure N19 ; Atrial fibrillation, unspecified type I48.91 and Cardiomegaly I51.[address] [address] May, Fever, unspecified fever cause R50.9 and Cough R05 [address] [address]- [address] May, [facility] [address] [id number] Apr, Dental examination Z01.20 [place] [address] [address] Mar, [place] [id number] [place] [address] 11859- 8385 Mar, Hemoglobin low D64.[address] [address]- [address] Feb, Atrial fibrillation, unspecified type I48.91 ; End stage renal disease N18.6 ; Psychophysiological insomnia F51.04 ; Dark stools R19.5 ; Valvular heart disease I38 and Constipation, unspecified constipation type K59.00 [place] [address] [address]- [address] Feb, 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.2 [address] [place] [address] Feb, Depressive disorder, not elsewhere classified F32.9 ; Anxiety state, unspecified F41.1 and Cognitive decline R41.89 [place] [id number] [place] [address] 18905- 8683 Jan, Depressive disorder, not elsewhere classified F32.9 ; Anxiety state, unspecified F41.1 and Cognitive decline R41.89 [place] [id number] [place] [address] 10970- 2158 Jan, Moderate episode of recurrent major depressive disorder F33.1 ; 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.2 and Atrial fibrillation, unspecified type I48.91 [place] [id number] [place] [address] 88204- 5935 Jan, Depressive disorder, not elsewhere classified F32.9 ; Anxiety state, unspecified F41.1 and Cognitive decline R41.89 [facility] [address] [place] [id number] Dec, End stage renal disease N18.6 and Valvular heart disease I38 [place] [id number] [place] [address] 84446- 6016 Nov, [place] [id number] [place] [address] 95222- 1648 Nov, FPC current use of anticoagulant Z79.01 [place] [id number] [place] [address] 60602- 1019 Nov, Recurrent major depressive disorder, in full remission F33.42 ; 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.2 ; Atrial fibrillation, unspecified type I48.91 and Shaking chills R68.83 [place] [id number] [place] [address] 80436- 4976 Nov, [place] [id number] [place] [address] 45559- 0333 Nov, [place] [address] [address]- [address] Oct, FPC current use of anticoagulant Z79.01 [facility] [id number] [place] [address] 33082- 3496 Oct, FPC current use of anticoagulant Z79.01 [facility] [id number] [place] [address] 23255- 8746 Oct, 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 [facility] [id number] [place] [address] 12943 2546 Oct, 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 [facility] [id number] [place] [address] 49531- 1135 Oct, FPC current use of anticoagulant Z79.01 [facility] [id number] [place] [address] 49565- 0416 Oct, FPC current use of anticoagulant Z79.01 [facility] [id number] [place] [address] 72127- 0967 Oct, FPC current use of anticoagulant Z79.01 [facility] [id number] [place] [address] 09300- 6956 Sep, [facility] [id number] [place] [address] 85269- 1432 Sep, FPC current use of anticoagulant Z79.01 [facility] [id number] [place] [address] 52651- 2546 Sep, FPC current use of anticoagulant Z79.01 [facility] [id number] [place] [address] 81648 2546 Sep, FPC current use of anticoagulant Z79.01 [facility] [id number] [place] [address] 77300- 2546 Sep, FPC current use of anticoagulant Z79.01 [facility] [address] [place] [address] 81492- 2546 Sep, FPC current use of anticoagulant Z79.01 [facility] [address] [address] Sep, 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 [facility] [address], [place] [address] Aug, FPC current use of anticoagulant Z79.01 [facility] [address] [place] [address] 76416- 7022 Aug, FPC current use of anticoagulant Z79.01 [facility] [address] [place] [address] 632808- 3373 Aug, FPC current use of anticoagulant Z79.01 [facility] [id number] [place] [address] 94145- 1106 July, [facility] [id number] [place] [address] 26644- 6726 July, FPC current use of anticoagulant Z79.01 [facility] [address], [place] [address] July, FPC current use of anticoagulant Z79.01 [facility] [address], [place] [address] July, 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 [facility] [address], [place] [address] July, FPC current use of anticoagulant Z79.01 [facility] [address], [place] [address] July, [facility] [id number] [address] July, 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 [facility] [address], [place] [address] July, [facility] [id number] [address] July, FPC current use of anticoagulant Z79.01 [address] [place] [id number] [place] [address] 35163- 1676 Jun, FPC current use of anticoagulant Z79.01 [place] [id number] [place] [address] 919431- 9176 Jun, FPC current use of anticoagulant Z79.01 [place] [id number] [place] [address] 26935- 2346 Jun, 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 [place] [id number] [place] [address] 769377- 9256 Jun, FPC current use of anticoagulant Z79.01 [place] [id number] [place] [address] 49826- 8716 Jun, Fatigue, unspecified type R53.83 and Non-intractable vomiting with nausea, unspecified vomiting type R11.2 [place] [address] [place] [address] 98591- 2482 Jun, FPC current use of anticoagulant Z79.01 and Non- intractable vomiting with nausea, unspecified vomiting type R11.2 [address] [place] [address] 92668- 8829 May, FPC current use of anticoagulant Z79.01 [address] [place] [address] 729209- 5956 May, FPC current use of anticoagulant Z79.01 [place] [address] [place] [address] 35946- 3166 May, [place] [id number] [place] [address] 520392- 9736 May, FPC current use of anticoagulant Z79.01 [address] [place] [id number] [place] [address] 924917- 6801 May, FPC current use of anticoagulant Z79.01 [address] [place] [address] 40951- 3100 May, Fall, initial encounter W19.XXXA ; Toe pain, right M79.674 and Dizziness R42 [address] [id number] [place] [address] 50085- 2227 May, 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 [place] [id number] [place] [address] 13372- 2262 May, 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 [place] [id number] [place] [address] 38690- 9242 May, FPC current use of anticoagulant Z79.01 [place] [id number] [place] [address] 05452- 9141 Apr, [place] [id number] [place] [address] 00386- 7501 Apr, 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 [place] [id number] [place] [address] 21623- 0833 Apr, FPC current use of anticoagulant Z79.01 [place] [id number] [place] [address] 94248- 5714 Apr, 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 ; Hemodialysis -associated hypotension I95.3 ; Varicose veins of left lower extremity I83.92 and Advance directive discussed with patient Z71.89 [address] [place] [id number] [place] [address] 94043- 2517 Mar, [place] [id number] [place] [address] 71212- 3569 Mar, 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 [address] [place] [id number] [place] [address] 78586- 5255 Mar, FPC current use of anticoagulant Z79.01 [address] [place] [address], [place] [address] 64[address] Mar, [place] [id number] [place] [address] 62933- 9371 Mar, FPC current use of anticoagulant Z79.01 and Encounter for therapeutic drug level monitoring Z51.81 [address] [place] [id number] [place] [address] 96129- 2260 Mar, Atrial fibrillation, unspecified type I48.91 [place] [id number] [place] [address] 69700- 8868 Feb, Atrial fibrillation, unspecified type I48.91 [place] [place] [id number] [place] [address] 83420- 9137 Feb, Atrial fibrillation, unspecified type I48.91 [place] [id number] [place] [address] 50843- 7787 Feb, Chronic anticoagulation Z79.01 ; Chronic fatigue R53.82 ; Hemodialysis-associated hypotension I95.3 ; 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.2 and End stage renal disease N18.6 [place] [address] [place] [address] 51189- 2867 Feb, [place] [address] [place] [address] 59948- 6577 Feb, Atrial fibrillation, unspecified type I48.91 [address] [place] [address] 83142- 1065 Feb, [address] [place] [address] 85623- 4629 Jan, Atrial fibrillation, unspecified type I48.91 [address], [place] [address]- 0890 Jan, Atrial fibrillation, unspecified type I48.91 [address] [place] [address] 70418- 8228 Jan, Atrial fibrillation, unspecified type I48.91 ; Insomnia, unspecified type G47.00 ; End stage renal disease N18.6 and Valvular heart disease I38 [address] [id number] [place] [address] 76234- 3702 Jan, [place] [id number] [place] [address] 44169- 7634 Jan, Atrial fibrillation, unspecified type I48.91 [address] [place] [id number] [place] [address] 77260- 8500 Jan, [place] [address] 50226- 1504 Jan, [place] [id number] [place] [address] 28169- 5548 Dec, [place] [address] 43384- 3287 Nov, Hypotension, unspecified hypotension type I95.9 ; Systolic ejection murmur I38 and Insomnia, unspecified type G47.00 [place] [id number] [place] [address] 94134- 5503 Oct, [place] [id number] [place] [address] 03800- 4418 Oct, [place] [id number] [place] [address] 63354- 9661 Aug, Screening for diabetes mellitus Z13.1 ; 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 and Systolic ejection murmur I38 [address] [id number] [place] [address] 05268- 5627 July, Cough R05 IMMUNIZATIONS No Known Immunizations SOCIAL HISTORY Never Assessed REASON FOR VISIT Lab (walk-in) PLAN OF CARE VITAL SIGNS MEDICATIONS No Known Medications RESULTS No Results PROCEDURES Procedure Date Ordered Result Body Site PROTHROMBIN TIME Oct 29, 2016 INSTRUCTIONS MEDICATIONS ADMINISTERED No Known Medications MEDICAL (GENERAL) HISTORY Type Description Date Medical History Decreased Kidney Function Medical History Hypertension Medical History Hyperlipidemia Medical History [facility]PC use of coumadin Medical History Dialysis Surgical History tonsillectomy and adenoidectomy Surgical History appendectomy Surgical History Partial Hysterectomy Surgical History left knee replacement Hospitalization History Chest Tube-[facility] 03/2015 Hospitalization History Fluid on lungs-[facility] Hospitalization History ER -shunt malfunction 10/2016 Hospitalization History ER 12/01/2016 Hospitalization History Broken left arm and fractured pelvis 12/2016 Hospitalization History back pain - [facility] ED visit [facility] 03/07/17 Hospitalization History [facility]- [facility]- SOA, Fluid Overload 04/12/17 Hospitalization History ER- [facility]- Bleeding/Needs stitches 04/20/2017 Hospitalization History ER - Shortness of breath 05/29/17
--- OUTSIDE RECORDS SUMMARY | 2018-04-13 16:06 | XMS REPORT ---
Author Author NALLELY SOLIMAN [facility] Address [address] [place] [address] Care Team Providers Care Water Rights Specialist Name Role Phone NALLELY SOLIMAN Unavailable PROBLEMS Type Condition ICD9-CM Code YWE02-VO Code Onset Dates Condition Status SNOMED Code Problem Chronic fatigue R53.82 Active 97305068 Problem Recurrent major depressive disorder, in full remission F33.42 Active 682332594 Problem detention current use of anticoagulant Z79.01 Active 172943931 Problem Cardiomegaly I51.7 Active 0293361 Problem Psychophysiological insomnia F51.04 Active 119389532 Problem Anxiety state, unspecified F41.1 Active 675221999 Problem Moderate episode of recurrent major depressive disorder F33.1 Active 534291481 Problem Constipation, unspecified constipation type K59.00 Active 28265724 Problem Depressive disorder, not elsewhere classified F32.9 Active 11249223 Problem 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 Active 465193 Problem Insomnia, unspecified type G47.00 Active 758217132 Problem Chronic atrial fibrillation I48.2 Active 840713316 Problem Valvular heart disease I38 Active 155093 Problem End stage renal disease N18.6 Active 55270461 Problem Kidney failure N19 Active 35106037 Problem 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 683499422 Problem Hypotension, unspecified hypotension type I95.9 Active 25569068 Problem 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 313290285 ALLERGIES No Information ENCOUNTERS Encounter Location Date Diagnosis [facility] [address] [id number] [address] May, Cough R05 and Shortness of breath R06.02 [facility] [id number], [place] [address] May, Adverse effect of unspecified systemic antibiotic, initial encounter T36.95XA [facility] [address] [place] [address] May, Adverse effect of unspecified systemic antibiotic, initial encounter T36.95XA ; Toxic gastroenteritis and colitis K52.1 and Cough R05 [facility] [address] [id number] May, Shortness of breath R06.02 and Cough R05 [facility] [address] [address] May, [facility] [address] [address] May, Cough R05 ; Kidney failure N19 ; Atrial fibrillation, unspecified type I48.91 and Cardiomegaly I51.[address] [address] May, Fever, unspecified fever cause R50.9 and Cough R05 [address] [address]- [address] May, [facility] [address] [id number] Apr, Dental examination Z01.20 [facility] [address] [address] Mar, [facility] [id number] [place] [address]- [address] Mar, Hemoglobin low D64.[address] [address] Feb, Atrial fibrillation, unspecified type I48.91 ; End stage renal disease N18.6 ; Psychophysiological insomnia F51.04 ; Dark stools R19.5 ; Valvular heart disease I38 and Constipation, unspecified constipation type K59.00 [facility] [address] [address] Feb, 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.2 [address] [place] [address] Feb, Depressive disorder, not elsewhere classified F32.9 ; Anxiety state, unspecified F41.1 and Cognitive decline R41.89 [facility] [id number] [place] [address] 61124- 6601 Jan, Depressive disorder, not elsewhere classified F32.9 ; Anxiety state, unspecified F41.1 and Cognitive decline R41.89 [facility] [id number] [place] [address] 56556- 4410 Jan, Moderate episode of recurrent major depressive disorder F33.1 ; 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.2 and Atrial fibrillation, unspecified type I48.91 [facility] [id number] [place] [address] 61437- 2355 Jan, Depressive disorder, not elsewhere classified F32.9 ; Anxiety state, unspecified F41.1 and Cognitive decline R41.89 [facility] [address] [place] [id number] Dec, End stage renal disease N18.6 and Valvular heart disease I38 [facility] [place] [id number] [place] [address] 89686- 6661 Nov, [facility] [id number] [place] [address] 16761- 4735 Nov, detention current use of anticoagulant Z79.01 [facility] [id number] [place] [address] 40183- 1803 Nov, Recurrent major depressive disorder, in full remission F33.42 ; 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.2 ; Atrial fibrillation, unspecified type I48.91 and Shaking chills R68.83 [facility] [id number] [place] [address] 22771- 3965 Nov, [facility] [id number] [place] [address] 05635- 2643 Nov, [facility] [address] [address] Oct, detention current use of anticoagulant Z79.01 [facility] [id number] [place] [address] 21287- 9326 Oct, detention current use of anticoagulant Z79.01 [facility] [id number] [place] [address] 85891- 3806 Oct, 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 [facility] [id number] [place] [address] 17355 2546 Oct, 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 [facility] [id number] [place] [address] 64389- 0183 Oct, detention current use of anticoagulant Z79.01 [facility] [id number] [place] [address] 74022- 2486 Oct, detention current use of anticoagulant Z79.01 [facility] [id number] [place] [address] 41849- 1752 Oct, detention current use of anticoagulant Z79.01 [facility] [id number] [place] [address] 27985- 2726 Sep, [facility] [id number] [place] [address] 10405- 4219 Sep, detention current use of anticoagulant Z79.01 [facility] [id number] [place] [address] 89249- 2546 Sep, detention current use of anticoagulant Z79.01 [facility] [id number] [place] [address] 70988 2546 Sep, detention current use of anticoagulant Z79.01 [facility] [id number] [place] [address] 38125- 2546 Sep, detention current use of anticoagulant Z79.01 [facility] [address] [place] [address] 36008- 2546 Sep, detention current use of anticoagulant Z79.01 [facility] [address] [address] Sep, 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 [facility] [address], [place] [address] Aug, detention current use of anticoagulant Z79.01 [facility] [id number] [place] [address] 55791- 3567 Aug, detention current use of anticoagulant Z79.01 [facility] [id number] [place] [address] 177150- 5465 Aug, detention current use of anticoagulant Z79.01 [facility] [id number] [place] [address] 93277- 2486 July, [facility] [id number] [place] [address] 98053- 6636 July, detention current use of anticoagulant Z79.01 [facility] [address], [place] [address] July, detention current use of anticoagulant Z79.01 [facility] [address], [place] [address] July, 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 [facility] [address], [place] [address] July, detention current use of anticoagulant Z79.01 [facility] [address], [place] [address] July, [facility] [id number] [address] July, 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 [facility] [address], [place] [address] July, [facility] [address] [id number] [address] July, detention current use of anticoagulant Z79.01 [facility] [id number] [place] [address] 81065- 4956 Jun, detention current use of anticoagulant Z79.01 [facility] [id number] [place] [address] 492000- 3646 Jun, detention current use of anticoagulant Z79.01 [facility] [id number] [place] [address] 47615- 1616 Jun, 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 [facility] [place] [id number] [place] [address] 885866- 0766 Jun, detention current use of anticoagulant Z79.01 [facility] [id number] [place] [address] 77602- 1046 Jun, Fatigue, unspecified type R53.83 and Non-intractable vomiting with nausea, unspecified vomiting type R11.2 [facility] [id number] [place] [address] 90752- 5624 Jun, detention current use of anticoagulant Z79.01 and Non- intractable vomiting with nausea, unspecified vomiting type R11.2 [facility] [place] [id number] [place] [address] 89614- 4283 May, detention current use of anticoagulant Z79.01 [facility] [address] [place] [address] 988700- 5536 May, detention current use of anticoagulant Z79.01 [facility] [place] [address] [place] [address] 11547- 8216 May, [facility] [id number] [place] [address] 241761- 2546 May, detention current use of anticoagulant Z79.01 [facility] [place] [id number] [place] [address] 999572- 5789 May, detention current use of anticoagulant Z79.01 [facility] [place] [address] [place] [address] 94840- 9568 May, Fall, initial encounter W19.XXXA ; Toe pain, right M79.674 and Dizziness R42 [place] [id number] [place] [address] 09776- 3857 May, 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 [facility] [place] [id number] [place] [address] 43126- 9666 May, 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 [facility] [place] [id number] [place] [address] 93745- 2763 May, detention current use of anticoagulant Z79.01 [facility] [place] [id number] [place] [address] 60073- 1820 Apr, [facility] [id number] [place] [address] 06952- 0208 Apr, 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 [facility] [id number] [place] [address] 37547- 9418 Apr, detention current use of anticoagulant Z79.01 [facility] [place] [id number] [place] [address] 83561- 3077 Apr, 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 ; Hemodialysis -associated hypotension I95.3 ; Varicose veins of left lower extremity I83.92 and Advance directive discussed with patient Z71.89 [facility] [id number] [place] [address] 98975- 7571 Mar, [facility] [id number] [place] [address] 88592- 4286 Mar, 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 [facility] [id number] [place] [address] 48332- 5541 Mar, detention current use of anticoagulant Z79.01 [facility] [address], [place] [address]- 0144 Mar, [facility] [place] [id number] [place] [address] 14003- 0657 Mar, detention current use of anticoagulant Z79.01 and Encounter for therapeutic drug level monitoring Z51.81 [facility] [place] [id number] [place] [address] 65726- 2420 Mar, Atrial fibrillation, unspecified type I48.91 [facility] [place] [id number] [place] [address] 06787- 6296 Feb, Atrial fibrillation, unspecified type I48.91 [facility] [place] [id number] [place] [address] 68905- 6378 Feb, Atrial fibrillation, unspecified type I48.91 [facility] [id number] [place] [address] 78690- 3755 Feb, Chronic anticoagulation Z79.01 ; Chronic fatigue R53.82 ; Hemodialysis-associated hypotension I95.3 ; 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.2 and End stage renal disease N18.6 [place] [address] [place] [address] 27885- 5997 Feb, [facility] [address] [place] [address] 75311- 6210 Feb, Atrial fibrillation, unspecified type I48.91 [address] [address] [place] [address] 56617- 2136 Feb, [place] [place] [address] 02910- 9182 Jan, Atrial fibrillation, unspecified type I48.91 [facility] [place] [address], [place] [address]- 8568 Jan, Atrial fibrillation, unspecified type I48.91 [facility] [address] [place] [address] 15010- 5901 Jan, Atrial fibrillation, unspecified type I48.91 ; Insomnia, unspecified type G47.00 ; End stage renal disease N18.6 and Valvular heart disease I38 [facility] [place] [id number] [place] [address] 15526- 3505 Jan, [facility] [place] [id number] [place] [address] 87521- 5464 Jan, Atrial fibrillation, unspecified type I48.91 [facility] [address] 08576- 9554 Jan, [place] [address] 28341- 3033 Jan, [facility] [address] 49711- 1709 Dec, [place] [address] 65442- 3957 Nov, Hypotension, unspecified hypotension type I95.9 ; Systolic ejection murmur I38 and Insomnia, unspecified type G47.00 [facility] [id number] [place] [address] 01661- 2580 Oct, [facility] [id number] [place] [address] 62176- 3692 Oct, [facility] [id number] [place] [address] 27340- 3571 Aug, Screening for diabetes mellitus Z13.1 ; 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 and Systolic ejection murmur I38 [facility] [id number] [place] [address] 43510- 4047 July, Cough R05 IMMUNIZATIONS No Known Immunizations SOCIAL HISTORY Never Assessed REASON FOR VISIT INR PLAN OF CARE VITAL SIGNS MEDICATIONS No Known Medications RESULTS No Results PROCEDURES No Known procedures INSTRUCTIONS MEDICATIONS ADMINISTERED No Known Medications MEDICAL (GENERAL) HISTORY Type Description Date Medical History Decreased Kidney Function Medical History Hypertension Medical History Hyperlipidemia 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 Hospitalization History ER -shunt malfunction 10/2016 Hospitalization History ER 12/01/2016 Hospitalization History Broken left arm and fractured pelvis 12/2016 Hospitalization History back pain - [facility] ED visit [facility] 03/07/17 Hospitalization History ER- [facility]- SOA, Fluid Overload 04/12/17 Hospitalization History ER- [facility]- Bleeding/Needs stitches 04/20/2017 Hospitalization History ER - Shortness of breath 05/29/17
--- OUTSIDE RECORDS SUMMARY | 2018-04-13 16:07 | XMS REPORT ---
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 Name Role Phone NALLELY SOLIMAN Unavailable PROBLEMS Type Condition ICD9-CM Code GUY49-AL Code Onset Dates Condition Status SNOMED Code Problem Chronic fatigue R53.82 Active 37377834 Problem Recurrent major depressive disorder, in full remission F33.42 Active 275978207 Problem detention current use of anticoagulant Z79.01 Active 749749546 Problem Cardiomegaly I51.7 Active 0330767 Problem Psychophysiological insomnia F51.04 Active 705658205 Problem Anxiety state, unspecified F41.1 Active 770054295 Problem Moderate episode of recurrent major depressive disorder F33.1 Active 614809521 Problem Constipation, unspecified constipation type K59.00 Active 62779660 Problem Depressive disorder, not elsewhere classified F32.9 Active 96635774 Problem 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 Active 405437 Problem Insomnia, unspecified type G47.00 Active 489414898 Problem Chronic atrial fibrillation I48.2 Active 500080746 Problem Valvular heart disease I38 Active 557829 Problem End stage renal disease N18.6 Active 09546505 Problem Kidney failure N19 Active 56475398 Problem 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 551754924 Problem Hypotension, unspecified hypotension type I95.9 Active 27635967 Problem 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 094529613 ALLERGIES No Information ENCOUNTERS Encounter Location Date Diagnosis [facility] [id number] [address] May, Cough R05 and Shortness of breath R06.02 [facility] [id number] [address] May, Adverse effect of unspecified systemic antibiotic, initial encounter T36.95XA [facility] [address] [place] [address] May, Adverse effect of unspecified systemic antibiotic, initial encounter T36.95XA ; Toxic gastroenteritis and colitis K52.1 and Cough R05 [place] [address] [id number] May, Shortness of breath R06.02 and Cough R05 [place] [address] [address] May, [place] [address] [address] May, Cough R05 ; Kidney failure N19 ; Atrial fibrillation, unspecified type I48.91 and Cardiomegaly I51.[address] [address] May, Fever, unspecified fever cause R50.9 and Cough R05 [address] [address] May, [facility] [address] [id number] Apr, Dental examination Z01.20 [place] [address] [address] Mar, [place] [id number] [place] [address] 48081- 6947 Mar, Hemoglobin low D64.[address] [address] Feb, Atrial fibrillation, unspecified type I48.91 ; End stage renal disease N18.6 ; Psychophysiological insomnia F51.04 ; Dark stools R19.5 ; Valvular heart disease I38 and Constipation, unspecified constipation type K59.00 [place] [address] [address]- [address] Feb, 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.2 [address] [place] [address] Feb, Depressive disorder, not elsewhere classified F32.9 ; Anxiety state, unspecified F41.1 and Cognitive decline R41.89 [place] [id number] [place] [address]20- 6496 Jan, Depressive disorder, not elsewhere classified F32.9 ; Anxiety state, unspecified F41.1 and Cognitive decline R41.89 [place] [id number] [place] [address] 26052- 1597 Jan, Moderate episode of recurrent major depressive disorder F33.1 ; 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.2 and Atrial fibrillation, unspecified type I48.91 [place] [id number] [place] [address] 55719- 1322 Jan, Depressive disorder, not elsewhere classified F32.9 ; Anxiety state, unspecified F41.1 and Cognitive decline R41.89 [facility] [address] [place] [id number] Dec, End stage renal disease N18.6 and Valvular heart disease I38 [place] [id number] [place] [address]- [address]6 Nov, [place] [id number] [place] [address] 13498- 3030 Nov, detention current use of anticoagulant Z79.01 [place] [id number] [place] [address] 54722- 9920 Nov, Recurrent major depressive disorder, in full remission F33.42 ; 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.2 ; Atrial fibrillation, unspecified type I48.91 and Shaking chills R68.83 [place] [id number] [place] [address] 85919- 2181 Nov, [place] [id number] [place] [address] 91355- 0768 Nov, [place] [address] [address]- [address] Oct, detention current use of anticoagulant Z79.01 [facility] [id number] [place] [address] 69152- 0836 Oct, detention current use of anticoagulant Z79.01 [facility] [id number] [place] [address] 00686- 7666 Oct, 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 [facility] [id number] [place] [address] 2546 Oct, 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 [facility] [id number] [place] [address] 27929- 4046 Oct, detention current use of anticoagulant Z79.01 [facility] [id number] [place] [address] 93690- 4186 Oct, detention current use of anticoagulant Z79.01 [facility] [id number] [place] [address] 06442- 0752 Oct, detention current use of anticoagulant Z79.01 [facility] [id number] [place] [address] 39307- 4416 Sep, [facility] [id number] [place] [address] 9[address]37- 2006 Sep, detention current use of anticoagulant Z79.01 [facility] [id number] [place] [address] 71476- 2546 Sep, detention current use of anticoagulant Z79.01 [facility] [address] [place] [address] 2546 Sep, detention current use of anticoagulant Z79.01 [facility] [id number] [place] [address] 03025- 2546 Sep, detention current use of anticoagulant Z79.01 [facility] [address] [place] [address] 81042- 2546 Sep, detention current use of anticoagulant Z79.01 [facility] [address] [address] Sep, 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 [facility] [address] [address] Aug, detention current use of anticoagulant Z79.01 [facility] [address] [place] [address] 07220- 5025 Aug, detention current use of anticoagulant Z79.01 [facility] [address] [place] [address] 009692- 5174 Aug, detention current use of anticoagulant Z79.01 [facility] [id number] [place] [address] 79362- 3336 July, [facility] [id number] [place] [address] 87833- 5576 July, detention current use of anticoagulant Z79.01 [facility] [address] [address] July, detention current use of anticoagulant Z79.01 [facility] [address], [place] [address] July, 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 [facility] [address] [address] July, detention current use of anticoagulant Z79.01 [facility] [address] [place] [address] July, [facility] [id number] [address] July, 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 [facility] [address] [address] July, [facility] [id number] [address] July, detention current use of anticoagulant Z79.01 [place] [id number] [place] [address] 04575- 2196 Jun, detention current use of anticoagulant Z79.01 [place] [id number] [place] [address] 726106- 2596 Jun, detention current use of anticoagulant Z79.01 [place] [id number] [place] [address] 88039- 9736 Jun, 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 [place] [id number] [place] [address] 566485- 2416 Jun, detention current use of anticoagulant Z79.01 [place] [id number] [place] [address] 84848- 9456 Jun, Fatigue, unspecified type R53.83 and Non-intractable vomiting with nausea, unspecified vomiting type R11.2 [address] [address] [place] [address] 96399- 2112 Jun, detention current use of anticoagulant Z79.01 and Non- intractable vomiting with nausea, unspecified vomiting type R11.2 [address] [address] [place] [address] 34590- 4733 May, detention current use of anticoagulant Z79.01 [address] [address] [place] [address] 388792- 9136 May, detention current use of anticoagulant Z79.01 [address] [address] [place] [address] 98120- 0496 May, [place] [id number] [place] [address] 817366- 7766 May, detention current use of anticoagulant Z79.01 [place] [id number] [place] [address] 073283- 0724 May, detention current use of anticoagulant Z79.01 [address] [address] [place] [address] 68594- 2408 May, Fall, initial encounter W19.XXXA ; Toe pain, right M79.674 and Dizziness R42 [place] [id number] [place] [address] 26723- 3734 May, 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 [place] [id number] [place] [address] 51355- 9756 May, 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 [place] [id number] [place] [address] 54720- 0867 May, detention current use of anticoagulant Z79.01 [place] [id number] [place] [address] 67426- 6187 Apr, [place] [id number] [place] [address] 00015- 3381 Apr, 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 [place] [id number] [place] [address] 78338- 2552 Apr, detention current use of anticoagulant Z79.01 [place] [id number] [place] [address] 34881- 9063 Apr, 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 ; Hemodialysis -associated hypotension I95.3 ; Varicose veins of left lower extremity I83.92 and Advance directive discussed with patient Z71.89 [address] [id number] [place] [address] 47269- 7497 Mar, [place] [id number] [place] [address] 69164- 6364 Mar, 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 [place] [id number] [place] [address] 61078- 7754 Mar, detention current use of anticoagulant Z79.01 [place] [address], [place] [address]- 9216 Mar, [place] [id number] [place] [address] 75750- 7378 Mar, detention current use of anticoagulant Z79.01 and Encounter for therapeutic drug level monitoring Z51.81 [place] [id number] [place] [address] 14876- 9376 Mar, Atrial fibrillation, unspecified type I48.91 [place] [id number] [place] [address] 21886- 3390 Feb, Atrial fibrillation, unspecified type I48.91 [place] [id number] [place] [address] 31771- 8099 Feb, Atrial fibrillation, unspecified type I48.91 [place] [id number] [place] [address] 69597- 2061 Feb, Chronic anticoagulation Z79.01 ; Chronic fatigue R53.82 ; Hemodialysis-associated hypotension I95.3 ; 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.2 and End stage renal disease N18.6 [place] [address] [place] [address] 45962- 6005 Feb, [address] [address] [place] [address] 38015- 8632 Feb, Atrial fibrillation, unspecified type I48.91 [address] [place] [address] 59685- 3032 Feb, [address] [address] [place] [address] 07446- 3111 Jan, Atrial fibrillation, unspecified type I48.91 [address], [place] [address]- 8554 Jan, Atrial fibrillation, unspecified type I48.91 [address] [place] [address] 07335- 7770 Jan, Atrial fibrillation, unspecified type I48.91 ; Insomnia, unspecified type G47.00 ; End stage renal disease N18.6 and Valvular heart disease I38 [address] [id number] [place] [address] 66913- 5269 Jan, [place] [id number] [place] [address] 49361- 9288 Jan, Atrial fibrillation, unspecified type I48.91 [place] [address] 29005- 4983 Jan, [place] [address] 45857- 0756 Jan, [place] [address] 53643- 6264 Dec, [place] [address] 07244- 6933 Nov, Hypotension, unspecified hypotension type I95.9 ; Systolic ejection murmur I38 and Insomnia, unspecified type G47.00 [place] [id number] [place] [address] 95697- 8594 Oct, [place] [id number] [place] [address] 32303- 3497 Oct, [place] [id number] [place] [address] 27962- 1559 Aug, Screening for diabetes mellitus Z13.1 ; 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 and Systolic ejection murmur I38 [address] [id number] [place] [address] 76958- 3250 July, Cough R05 IMMUNIZATIONS No Known Immunizations SOCIAL HISTORY Never Assessed REASON FOR VISIT Admit to [facility] PLAN OF CARE VITAL SIGNS MEDICATIONS No Known Medications RESULTS No Results PROCEDURES No Known procedures INSTRUCTIONS MEDICATIONS ADMINISTERED No Known Medications MEDICAL (GENERAL) HISTORY Type Description Date Medical History Decreased Kidney Function Medical History Hypertension Medical History Hyperlipidemia 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 Medical History Dialysis Surgical History tonsillectomy and adenoidectomy Surgical History appendectomy Surgical History Partial Hysterectomy Surgical History left knee replacement Hospitalization History Chest Tube-[facility] 03/2015 Hospitalization History Fluid on lungs-[facility] Hospitalization History ER -shunt malfunction 10/2016 Hospitalization History ER 12/01/2016 Hospitalization History Broken left arm and fractured pelvis 12/2016 Hospitalization History back pain - [facility] ED visit [facility] [place] 03/07/17 Hospitalization History [facility]- [facility]- SOA, Fluid Overload 04/12/17 Hospitalization History ER- [facility]- Bleeding/Needs stitches 04/20/2017 Hospitalization History ER - Shortness of breath 05/29/17
--- OUTSIDE RECORDS SUMMARY | 2018-04-13 16:08 | XMS REPORT ---
Author Author NALLELY SOLIMAN Organization [facility] Address [address] [place] [address] Care Team Providers Care Turner In Name Role Phone NALLELY SOLIMAN Unavailable PROBLEMS Type Condition ICD9-CM Code ZTG14-XZ Code Onset Dates Condition Status SNOMED Code Problem Chronic fatigue R53.82 Active 63892196 Problem Recurrent major depressive disorder, in full remission F33.42 Active 025139135 Problem long-term current use of anticoagulant Z79.01 Active 502626702 Problem Cardiomegaly I51.7 Active 2249253 Problem Psychophysiological insomnia F51.04 Active 503185230 Problem Anxiety state, unspecified F41.1 Active 376050281 Problem Moderate episode of recurrent major depressive disorder F33.1 Active 202338200 Problem Constipation, unspecified constipation type K59.00 Active 29394585 Problem Depressive disorder, not elsewhere classified F32.9 Active 02468496 Problem 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 Active 348858 Problem Insomnia, unspecified type G47.00 Active 210609065 Problem Chronic atrial fibrillation I48.2 Active 533570625 Problem Valvular heart disease I38 Active 941850 Problem End stage renal disease N18.6 Active 34944175 Problem Kidney failure N19 Active 87988656 Problem 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 415843465 Problem Hypotension, unspecified hypotension type I95.9 Active 36121192 Problem 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 882082411 ALLERGIES No Information ENCOUNTERS Encounter Location Date Diagnosis [facility] [id number] [address] May, Cough R05 and Shortness of breath R06.02 [facility] [id number] [address] May, Adverse effect of unspecified systemic antibiotic, initial encounter T36.95XA [facility] [address] [place] [address] May, Adverse effect of unspecified systemic antibiotic, initial encounter T36.95XA ; Toxic gastroenteritis and colitis K52.1 and Cough R05 [place] [address] [id number] May, Shortness of breath R06.02 and Cough R05 [place] [address] [address] May, [place] [address] [address] May, Cough R05 ; Kidney failure N19 ; Atrial fibrillation, unspecified type I48.91 and Cardiomegaly I51.[address] [address] May, Fever, unspecified fever cause R50.9 and Cough R05 [address] [address] May, [facility] [address] [id number] Apr, Dental examination Z01.20 [place] [address] [address] Mar, [facility] [id number] [place] [address]- [address] Mar, Hemoglobin low D64.[address] [address] Feb, Atrial fibrillation, unspecified type I48.91 ; End stage renal disease N18.6 ; Psychophysiological insomnia F51.04 ; Dark stools R19.5 ; Valvular heart disease I38 and Constipation, unspecified constipation type K59.00 [place] [address] [address] Feb, 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.2 [address] [place] [address] Feb, Depressive disorder, not elsewhere classified F32.9 ; Anxiety state, unspecified F41.1 and Cognitive decline R41.89 [facility] [id number] [place] [address] 20341- 0936 Jan, Depressive disorder, not elsewhere classified F32.9 ; Anxiety state, unspecified F41.1 and Cognitive decline R41.89 [facility] [id number] [place] [address] 04650- 5261 Jan, Moderate episode of recurrent major depressive disorder F33.1 ; 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.2 and Atrial fibrillation, unspecified type I48.91 [facility] [id number] [place] [address] 8[address]51- 7795 Jan, Depressive disorder, not elsewhere classified F32.9 ; Anxiety state, unspecified F41.1 and Cognitive decline R41.89 [facility] [address] [place] [id number] Dec, End stage renal disease N18.6 and Valvular heart disease I38 [place] [id number] [place] [address] 50605- [address]0 Nov, [place] [id number] [place] [address] 14914- 4773 Nov, long-term current use of anticoagulant Z79.01 [place] [id number] [place] [address] 06145- 9936 Nov, Recurrent major depressive disorder, in full remission F33.42 ; 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.2 ; Atrial fibrillation, unspecified type I48.91 and Shaking chills R68.83 [place] [id number] [place] [address] 88943- 9104 Nov, [place] [id number] [place] [address] 97173- 7168 Nov, [place] [address] [address]47- [address] Oct, long-term current use of anticoagulant Z79.01 [facility] [id number] [place] [address] 36648- 7366 Oct, long-term current use of anticoagulant Z79.01 [facility] [id number] [place] [address] 21879- 6936 Oct, 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 [facility] [id number] [place] [address] 9[address]67 2546 Oct, 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 [facility] [id number] [place] [address] 25557- 0087 Oct, long-term current use of anticoagulant Z79.01 [facility] [id number] [place] [address] 43742- 0916 Oct, long-term current use of anticoagulant Z79.01 [facility] [id number] [place] [address] 90050- 9341 Oct, long-term current use of anticoagulant Z79.01 [facility] [id number] [place] [address] 62863- 5896 Sep, [facility] [id number] [place] [address] 37910- 4679 Sep, long-term current use of anticoagulant Z79.01 [facility] [id number] [place] [address] 75059- 2546 Sep, long-term current use of anticoagulant Z79.01 [facility] [address] [place] [address] 58856 2546 Sep, long-term current use of anticoagulant Z79.01 [facility] [id number] [place] [address] 87839- 2546 Sep, long-term current use of anticoagulant Z79.01 [facility] [address] [place] [address] 51717- 2546 Sep, long-term current use of anticoagulant Z79.01 [facility] [address] [address] Sep, 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 [facility] [address] [address] Aug, long-term current use of anticoagulant Z79.01 [facility] [id number] [place] [address] 22201- 3576 Aug, long-term current use of anticoagulant Z79.01 [facility] [address] [place] [address] 501305- 6957 Aug, long-term current use of anticoagulant Z79.01 [facility] [id number] [place] [address] 44796- 6026 July, [facility] [id number] [place] [address] 31210- 2516 July, long-term current use of anticoagulant Z79.01 [facility] [address] [address] July, long-term current use of anticoagulant Z79.01 [facility] [address] [address] July, 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 [facility] [address] [address] July, long-term current use of anticoagulant Z79.01 [facility] [address] [address] July, [facility] [id number] [address] July, 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 [facility] [address] [address] July, [facility] [id number] [address] July, long-term current use of anticoagulant Z79.01 [facility] [id number] [place] [address] 8[address]14- 2006 Jun, long-term current use of anticoagulant Z79.01 [place] [id number] [place] [address] 532422- 8016 Jun, long-term current use of anticoagulant Z79.01 [place] [id number] [place] [address] 12712- 2466 Jun, 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 [place] [id number] [place] [address] 879038- 7896 Jun, long-term current use of anticoagulant Z79.01 [place] [id number] [place] [address] 13995- 5736 Jun, Fatigue, unspecified type R53.83 and Non-intractable vomiting with nausea, unspecified vomiting type R11.2 [address] [address] [place] [address] 03851- 2792 Jun, long-term current use of anticoagulant Z79.01 and Non- intractable vomiting with nausea, unspecified vomiting type R11.2 [address] [address] [place] [address] 90918- 6143 May, long-term current use of anticoagulant Z79.01 [address] [address] [place] [address] 592347- 4876 May, long-term current use of anticoagulant Z79.01 [address] [address] [place] [address] 58266- 9186 May, [place] [id number] [place] [address] 961012- 4636 May, long-term current use of anticoagulant Z79.01 [place] [id number] [place] [address] 039161- 2479 May, long-term current use of anticoagulant Z79.01 [place] [address] [place] [address] 43918- 9764 May, Fall, initial encounter W19.XXXA ; Toe pain, right M79.674 and Dizziness R42 [place] [id number] [place] [address] 02741- 3184 May, 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 [place] [id number] [place] [address] 69385- 5159 May, 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 [place] [id number] [place] [address] 79425- 8642 May, long-term current use of anticoagulant Z79.01 [place] [id number] [place] [address] 98574- 5133 Apr, [place] [id number] [place] [address] 46753- 0664 Apr, 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 [place] [id number] [place] [address] 70762- 4914 Apr, long-term current use of anticoagulant Z79.01 [place] [id number] [place] [address] 39731- 4532 Apr, 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 ; Hemodialysis -associated hypotension I95.3 ; Varicose veins of left lower extremity I83.92 and Advance directive discussed with patient Z71.89 [place] [id number] [place] [address] 39022- 7415 Mar, [place] [id number] [place] [address] 23620- 9402 Mar, 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 [place] [id number] [place] [address] 31336- 8802 Mar, long-term current use of anticoagulant Z79.01 [place] [address] [address]- 3225 Mar, [place] [id number] [place] [address] 54816- 6495 Mar, long-term current use of anticoagulant Z79.01 and Encounter for therapeutic drug level monitoring Z51.81 [place] [id number] [place] [address] 15273- 6648 Mar, Atrial fibrillation, unspecified type I48.91 [place] [id number] [place] [address] 48328- 2738 Feb, Atrial fibrillation, unspecified type I48.91 [place] [id number] [place] [address] 70220- 5488 Feb, Atrial fibrillation, unspecified type I48.91 [place] [id number] [place] [address] 29586- 4092 Feb, Chronic anticoagulation Z79.01 ; Chronic fatigue R53.82 ; Hemodialysis-associated hypotension I95.3 ; 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.2 and End stage renal disease N18.6 [address] [address] [place] [address] 56502- 0574 Feb, [place] [address] [place] [address] 09330- 7624 Feb, Atrial fibrillation, unspecified type I48.91 [address] [address] [place] [address] 96459- 4794 Feb, [place] [address] [place] [address] 38254- 0447 Jan, Atrial fibrillation, unspecified type I48.91 [place] [address] [address]- 5801 Jan, Atrial fibrillation, unspecified type I48.91 [address] [address] [place] [address] 13254- 4044 Jan, Atrial fibrillation, unspecified type I48.91 ; Insomnia, unspecified type G47.00 ; End stage renal disease N18.6 and Valvular heart disease I38 [place] [id number] [place] [address] 17102- 9169 Jan, [place] [id number] [place] [address] 68667- 8368 Jan, Atrial fibrillation, unspecified type I48.91 [address] [address] 96284- 6683 Jan, [place] [address] 09976- 4093 Jan, [place] [address] 60121- 0178 Dec, [address] [address] 34324- 3817 Nov, Hypotension, unspecified hypotension type I95.9 ; Systolic ejection murmur I38 and Insomnia, unspecified type G47.00 [address] [id number] [place] [address] 39607- 2421 Oct, [place] [id number] [place] [address] 28360- 8107 Oct, [place] [id number] [place] [address] 81261- 7872 Aug, Screening for diabetes mellitus Z13.1 ; 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 and Systolic ejection murmur I38 [place] [id number] [place] [address] 01701- 8122 July, Cough R05 IMMUNIZATIONS No Known Immunizations SOCIAL HISTORY Never Assessed REASON FOR VISIT INR result PLAN OF CARE VITAL SIGNS MEDICATIONS No Known Medications RESULTS No Results PROCEDURES No Known procedures INSTRUCTIONS MEDICATIONS ADMINISTERED No Known Medications MEDICAL (GENERAL) HISTORY Type Description Date Medical History Decreased Kidney Function Medical History Hypertension Medical History Hyperlipidemia 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 [place] 03/07/17 Hospitalization History [facility]- [place]- SOA, Fluid Overload 04/12/17 Hospitalization History ER- [place]- Bleeding/Needs stitches 04/20/2017 Hospitalization History ER - Shortness of breath 05/29/17
--- OUTSIDE RECORDS SUMMARY | 2018-04-13 16:08 | XMS REPORT ---
Author Author NALLELY SOLIMAN Organization [facility] Address [address] [place] [address] Care Team Providers Care Enterprise Engineer Name Role Phone NALLELY SOLIMAN Unavailable PROBLEMS Type Condition ICD9-CM Code [id number] Code Onset Dates Condition Status SNOMED Code Problem Chronic fatigue R53.82 Active 21070830 Problem Recurrent major depressive disorder, in full remission F33.42 Active 730845454 Problem senior care current use of anticoagulant Z79.01 Active 379668664 Problem Cardiomegaly I51.7 Active 8324804 Problem Psychophysiological insomnia F51.04 Active 804544213 Problem Anxiety state, unspecified F41.1 Active 537564987 Problem Moderate episode of recurrent major depressive disorder F33.1 Active 431431237 Problem Constipation, unspecified constipation type K59.00 Active 41227905 Problem Depressive disorder, not elsewhere classified F32.9 Active 21566120 Problem 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 [id number] [address] July, Seasonal allergic rhinitis, unspecified trigger J30.2 [facility] [address] [facility] [id number], [place] [address] Jun, Wheezes R06.2 ; Seasonal allergic rhinitis, unspecified trigger J30.2 and Diarrhea, unspecified type R19.7 [facility] [id number] [place] [address] 04797- 2279 May, Cough R05 and Shortness of breath R06.02 [facility] [address] [address] May, Adverse effect of unspecified systemic antibiotic, initial encounter T36.95XA [facility] [facility] [address] [address]- [address] 15 May, 2017 Adverse effect of unspecified systemic antibiotic, initial encounter T36.95XA ; Toxic gastroenteritis and colitis K52.1 and Cough R05 [place] [facility] [address] 6[address]- 2572 May, Shortness of breath R06.02 and Cough R05 [facility] [id number] [place] [address] 80375- 4175 May, [facility] [address] 65[address]- 32[address] May, Cough R05 ; Kidney failure N19 ; Atrial fibrillation, unspecified type I48.91 and Cardiomegaly I51.7 [facility] [id number] [place] [address] 90705- 1435 May, Cough R05 [facility] [id number] [place] [address] 03368- 0971 May, [facility] [id number] [place] [address] [id number] Apr, Dental examination Z01.20 [facility] [id number] [place] [address] 08766- 8370 Mar, [facility] [address] 99808- 5598 Mar, Hemoglobin low D64.9 [facility] [id number] [place] [address] 95977- 2318 Feb, Atrial fibrillation, unspecified type I48.91 ; End stage renal disease N18.6 ; Psychophysiological insomnia F51.04 ; Dark stools R19.5 ; Valvular heart disease I38 and Constipation, unspecified constipation type K59.00 [facility] [facility] [address] [place] [address] 38529- 8336 Feb, 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.2 [facility] [id number] [place] [address] 87904- 8262 Feb, Depressive disorder, not elsewhere classified F32.9 ; Anxiety state, unspecified F41.1 and Cognitive decline R41.89 [facility] [id number] [place] [address] 37384- 2282 Jan, Depressive disorder, not elsewhere classified F32.9 ; Anxiety state, unspecified F41.1 and Cognitive decline R41.89 [facility] [id number] [place] [address] 89901- 3489 Jan, Moderate episode of recurrent major depressive disorder F33.1 ; 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.2 and Atrial fibrillation, unspecified type I48.91 [facility] [id number] [place] [address] 13633- 2995 Jan, Depressive disorder, not elsewhere classified F32.9 ; Anxiety state, unspecified F41.1 and Cognitive decline R41.89 [facility] [address] [place] [id number] Dec, End stage renal disease N18.6 and Valvular heart disease I38 [place] [address] [place] [address] 22943- 9268 Nov, [facility] [id number] [place] [address] 93471- 4786 Nov, 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 [place] [address] [place] [address] 49953- 0114 07 Nov, 2016 Recurrent major depressive disorder, in full remission F33.42 ; 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.2 ; Atrial fibrillation, unspecified type I48.91 and Shaking chills R68.83 [facility] [id number] [place] [address] 77488 2546 Nov, [facility] [id number] [place] [address] 77230 2546 Nov, [facility] [id number] [place] [address] 72656- 9276 Oct, 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 [facility] [id number] [place] [address] 38476 2546 Oct, 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 [facility] [id number] [place] [address] 17324 2546 Oct, 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 [facility] [address] 13148- 9386 Oct, senior care current use of anticoagulant Z79.01 [facility] [id number] [place] [address] 89199 2549 Oct, 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 [facility] [id number] [place] [address] 20104- 8305 Oct, senior care current use of anticoagulant Z79.01 [facility] [id number] [place] [address] 03896- 6106 Oct, 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 [facility] [id number] [place] [address] 31335 2546 Sep, [facility] [id number] [place] [address] 84113 2546 Sep, 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 [facility] [id number] [place] [address] 61381 2546 Sep, senior care current use of anticoagulant Z79.01 [facility] [id number] [place] [address] [phone]- 3925 Sep, 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 [facility] [address] [place] [address] 171186- 5640 Sep, 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 [facility] [address] [address] Sep, senior care current use of anticoagulant Z79.01 [facility] [id number] [place] [address] 33717- 3745 Sep, senior care current use of anticoagulant Z79.01 [facility] [address] [place] [address] 965561- 8708 Aug, senior care current use of anticoagulant Z79.01 [facility] [address] [place] [address] 014137- 8662 Aug, 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 [facility] [address] [place] [address] 07365- 9720 Aug, 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 [facility] [address] [place] [address] 23217- 4310 July, [facility] [address] [place] [address] [phone]- 3336 July, 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 [facility] [address] [address] July, 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 [facility] [address] [address] July, 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 [facility] [address] July, 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 [facility] [address] [place] [address] 21955- 3411 July, [facility] [address] [address] July, senior care current use of anticoagulant Z79.01 [facility] [address] [place] [address] 61181- 3021 July, [facility] [address] [place] [address] 94092- 7906 July, 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 [facility] [address] [place] [address] 45017- 7516 Jun, senior care current use of anticoagulant Z79.01 [facility] [id number] [place] [address] 19332- 8116 Jun, senior care current use of anticoagulant Z79.01 [place] [address] [place] [address] 87115- 5620 Jun, 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 [place] [address] [place] [address] 15703- 2559 Jun, senior care current use of anticoagulant Z79.01 [place] [address] [place] [address] 06083- 5575 Jun, Fatigue, unspecified type R53.83 and Non-intractable vomiting with nausea, unspecified vomiting type R11.2 [place] [address] [place] [address] 48531- 3986 Jun, 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 and Non- intractable vomiting with nausea, unspecified vomiting type R11.2 [facility] [facility] [id number] [place] [address] 31528- 0294 May, senior care current use of anticoagulant Z79.01 [facility] [address] [place] [address] 00690- 7495 May, 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 [facility] [facility] [id number] [place] [address] 63794- 5430 May, [facility] [facility] [id number] [place] [address] 36370- 7787 May, 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 [facility] [id number] [place] [address] 75194- 5887 May, 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 [place] [address] 02636- 3959 May, Fall, initial encounter W19.XXXA ; Toe pain, right M79.674 and Dizziness R42 [place] [address] 15596- 6029 May, 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 [place] [address] 63805- 2084 May, 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 [facility] [facility] [id number] [place] [address] 72625- 3337 May, 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 [facility] [facility] [id number] [place] [address] 26581- 9575 Apr, [facility] [id number] [place] [address] 23289- 7395 Apr, 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 [facility] [facility] [id number] [place] [address] 91892- 5436 Apr, 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 [place] [id number] [place] [address] 63486- 5639 Apr, senior care current use of anticoagulant Z79.01 ; Hemodialysis -associated hypotension I95.3 ; Varicose veins of left lower extremity I83.92 and Advance directive discussed with patient Z71.89 [place] [address] 34817- 6689 Mar, [place] [address] [address] Mar, 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 [facility] [address] [address] 85[address] Mar, 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 [place] [facility] [id number] [place] [address] 47100- 4875 Mar, [place] [facility] [id number] [place] [address] 69501- 0351 Mar, senior care current use of anticoagulant Z79.01 and Encounter for therapeutic drug level monitoring Z51.81 [facility] [facility] [id number] [place] [address] 54337- 6244 Mar, Atrial fibrillation, unspecified type I48.91 [facility] [id number] [place] [address] 42171- 8334 Feb, Atrial fibrillation, unspecified type I48.91 [facility] [facility] [id number] [place] [address] 36183- 6867 Feb, Atrial fibrillation, unspecified type I48.91 [facility] [facility] [address] [place] [address] 35659- 5359 Feb, Chronic anticoagulation Z79.01 ; Chronic fatigue R53.82 ; Hemodialysis-associated hypotension I95.3 ; 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.2 and End stage renal disease N18.6 [place] [address] [address] 0[address] Feb, [place] [id number] [place] [address] 47443- 3632 Feb, Atrial fibrillation, unspecified type I48.91 [place] [address] [place] [address] 65951- 1235 Feb, [place] [facility] [id number] [place] [address] 89757- 0734 Jan, Atrial fibrillation, unspecified type I48.91 [facility] [id number] [place] [address] 59393- 7022 Jan, Atrial fibrillation, unspecified type I48.91 [facility] [id number] [place] [address] 99289- 6888 Jan, Atrial fibrillation, unspecified type I48.91 ; Insomnia, unspecified type G47.00 ; End stage renal disease N18.6 and Valvular heart disease I38 [place] [facility] [id number] [place] [address] 95767- 9211 Jan, [facility] [facility] [address] 16083- 3693 Jan, Atrial fibrillation, unspecified type I48.91 [place] [address] 33303- 9247 Jan, [facility] [id number] [place] [address] 05752- 4335 Jan, [place] [id number] [place] [address] 09261- 8422 Dec, [facility] [id number] [place] [address] 17824- 1114 Nov, Hypotension, unspecified hypotension type I95.9 ; Systolic ejection murmur I38 and Insomnia, unspecified type G47.00 [facility] [id number] [place] [address] 53493- 5763 Oct, [facility] [address] 72723- 5069 Oct, [place] [address] 01382- 7882 Aug, Screening for diabetes mellitus Z13.1 ; 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 and Systolic ejection murmur I38 [place] [address] [place] [address]- 4392 July, Cough R05 IMMUNIZATIONS No Known Immunizations SOCIAL HISTORY Never Assessed REASON FOR VISIT Refill PLAN OF CARE VITAL SIGNS MEDICATIONS Medication Instructions Dosage Frequency Start Date End Date Duration Status Renvela 800 MG Orally Three times a day 3 tablets 8h Active RESULTS No Results PROCEDURES No Known procedures INSTRUCTIONS MEDICATIONS ADMINISTERED No Known Medications MEDICAL (GENERAL) HISTORY Type Description Date Medical History Decreased Kidney Function Medical History Hypertension Medical History Hyperlipidemia 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 Medical History Dialysis Surgical History tonsillectomy and adenoidectomy Surgical History appendectomy Surgical History Partial Hysterectomy Surgical History left knee replacement Hospitalization History Chest Tube-[facility] 03/2015 Hospitalization History Fluid on lungs-[facility] Hospitalization History ER -shunt malfunction 10/2016 Hospitalization History ER 12/01/2016 Hospitalization History Broken left arm and fractured pelvis 12/2016 Hospitalization History back pain - [facility] ED visit [facility] 03/07/17 Hospitalization History [facility]- [place]- SOA, Fluid Overload 04/12/17 Hospitalization History [facility]- [place]- Bleeding/Needs stitches 04/20/2017 Hospitalization History [facility] - Shortness of breath 05/29/17
--- NOTE | 2018-04-13 16:09 | Diagnostic Imaging Report ---
PROCEDURE: CT abdomen and pelvis without contrast. TECHNIQUE: Multiple contiguous axial images were obtained through the abdomen and pelvis without the use of intravenous contrast. INDICATION: Constipation. COMPARISON: Comparison is made with prior CT from 03/07/2017. FINDINGS: There is some parenchymal density in the right lung base, similar to the study from 03/07/2017 and appears chronic. No new parenchymal opacity is seen. The heart is enlarged. There is a hiatal hernia present. No discrete liver mass is seen. Gallbladder is unremarkable. No biliary ductal dilatation is identified. The pancreas and spleen are unremarkable apart from multiple splenic granulomas. No adrenal mass is seen. There is renal atrophy bilaterally. Aorta is heavily calcified but nonaneurysmal. Bowel loops appear to be nonobstructive. There is moderate stool in the colon. There is some free fluid in the pelvis. Bladder is decompressed. There is some soft tissue prominence in the left adnexa, similar to prior CT and perhaps representing the left ovary. IMPRESSION: 1. The curvilinear opacity in the right lung base previously described appears similar to examination from 03/07/2017. 2. Hiatal hernia, similar to prior exam. 3. Moderate stool in the colon but no evidence of fecal impaction. No acute feature in the abdomen or pelvis is seen. There is some free fluid present. Soft tissue prominence in the left adnexa is likely the left ovary. This is similar to prior CT but ultrasound could be performed for further characterization, if clinically indicated. Dictated by: Dictated on workstation # [id number]
--- OUTSIDE RECORDS SUMMARY | 2018-04-13 16:09 | XMS REPORT ---
Author Author NALLELY SOLIMAN [facility] Address [address] [place] [address] Care Team Providers Care Sales Order Coordinator Name Role Phone NALLELY SOLIAMN Unavailable PROBLEMS Type Condition ICD9-CM Code COR33-LA Code Onset Dates Condition Status SNOMED Code Problem Chronic fatigue R53.82 Active 11897952 Problem Recurrent major depressive disorder, in full remission F33.42 Active 751663901 Problem correction current use of anticoagulant Z79.01 Active 454887530 Problem Cardiomegaly I51.7 Active 7645492 Problem Psychophysiological insomnia F51.04 Active 164890469 Problem Anxiety state, unspecified F41.1 Active 904555204 Problem Moderate episode of recurrent major depressive disorder F33.1 Active 902287998 Problem Constipation, unspecified constipation type K59.00 Active 26080167 Problem Depressive disorder, not elsewhere classified F32.9 Active 21971098 Problem 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 Active 644694 Problem Insomnia, unspecified type G47.00 Active 780116861 Problem Chronic atrial fibrillation I48.2 Active 952659232 Problem Valvular heart disease I38 Active 152791 Problem End stage renal disease N18.6 Active 81897525 Problem Kidney failure N19 Active 71983738 Problem 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 379323404 Problem Hypotension, unspecified hypotension type I95.9 Active 08992810 Problem 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 430375192 ALLERGIES No Information ENCOUNTERS Encounter Location Date Diagnosis [facility] [address] [id number] [address] May, Cough R05 and Shortness of breath R06.02 [facility] [address] [id number], [place] [address] May, Adverse effect of unspecified systemic antibiotic, initial encounter T36.95XA [facility] [address] [place] [address] May, Adverse effect of unspecified systemic antibiotic, initial encounter T36.95XA ; Toxic gastroenteritis and colitis K52.1 and Cough R05 [place] [address] [id number] May, Shortness of breath R06.02 and Cough R05 [address] [address] [address] May, [place] [address] [address] May, Cough R05 ; Kidney failure N19 ; Atrial fibrillation, unspecified type I48.91 and Cardiomegaly I51.[address] [address] May, Fever, unspecified fever cause R50.9 and Cough R05 [address] [address] May, [facility] [address] [id number] Apr, Dental examination Z01.20 [place] [address] [address] Mar, [place] [id number] [place] [address]- [address] Mar, Hemoglobin low D64.[address] [address] Feb, Atrial fibrillation, unspecified type I48.91 ; End stage renal disease N18.6 ; Psychophysiological insomnia F51.04 ; Dark stools R19.5 ; Valvular heart disease I38 and Constipation, unspecified constipation type K59.00 [place] [address] [address] Feb, 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.2 [address] [place] [address] Feb, Depressive disorder, not elsewhere classified F32.9 ; Anxiety state, unspecified F41.1 and Cognitive decline R41.89 [place] [id number] [place] [address]41- 9475 Jan, Depressive disorder, not elsewhere classified F32.9 ; Anxiety state, unspecified F41.1 and Cognitive decline R41.89 [place] [id number] [place] [address]49- 7301 Jan, Moderate episode of recurrent major depressive disorder F33.1 ; 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.2 and Atrial fibrillation, unspecified type I48.91 [place] [id number] [place] [address]182- 8203 Jan, Depressive disorder, not elsewhere classified F32.9 ; Anxiety state, unspecified F41.1 and Cognitive decline R41.89 [facility] [address] [place] [id number] Dec, End stage renal disease N18.6 and Valvular heart disease I38 [place] [id number] [place] [address]- [address] Nov, [place] [id number] [place] [address] 89198- 4442 Nov, correction current use of anticoagulant Z79.01 [place] [id number] [place] [address] 8[address]- 9840 Nov, Recurrent major depressive disorder, in full remission F33.42 ; 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.2 ; Atrial fibrillation, unspecified type I48.91 and Shaking chills R68.83 [place] [id number] [place] [address] 69260- 2393 Nov, [place] [id number] [place] [address] 09026- 9560 Nov, [place] [address] [address]- [address] Oct, correction current use of anticoagulant Z79.01 [facility] [address] [place] [address]- 9066 Oct, correction current use of anticoagulant Z79.01 [facility] [id number] [place] [address] 71391- 2966 Oct, 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 current use of anticoagulant Z79.01 [facility] [id number] [place] [address] 2546 Oct, 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 current use of anticoagulant Z79.01 [facility] [id number] [place] [address] 87842- 6077 Oct, correction current use of anticoagulant Z79.01 [facility] [id number] [place] [address] 66900- 0496 Oct, correction current use of anticoagulant Z79.01 [facility] [id number] [place] [address] 71409- 5380 Oct, correction current use of anticoagulant Z79.01 [facility] [id number] [place] [address] 78325- 5096 Sep, [facility] [id number] [place] [address] 30852- 2660 Sep, correction current use of anticoagulant Z79.01 [facility] [id number] [place] [address] 99640- 2546 Sep, correction current use of anticoagulant Z79.01 [facility] [address] [place] [address] 295[address] 2546 Sep, correction current use of anticoagulant Z79.01 [facility] [id number] [place] [address] 69857- 2546 Sep, correction current use of anticoagulant Z79.01 [facility] [address] [place] [address] 65389- 2546 Sep, correction current use of anticoagulant Z79.01 [facility] [address] [address] Sep, 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 current use of anticoagulant Z79.01 [facility] [address], [place] [address] Aug, correction current use of anticoagulant Z79.01 [facility] [address] [place] [address] 48[address]- [address] Aug, correction current use of anticoagulant Z79.01 [facility] [address] [place] [address] 950199- 1797 Aug, correction current use of anticoagulant Z79.01 [facility] [id number] [place] [address] 55118- 6886 July, [facility] [id number] [place] [address] 68514- 7666 July, correction current use of anticoagulant Z79.01 [facility] [address], [place] [address] July, correction current use of anticoagulant Z79.01 [facility] [address], [place] [address] July, 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 current use of anticoagulant Z79.01 [facility] [address], [place] [address] July, correction current use of anticoagulant Z79.01 [facility] [address], [place] [address] July, [facility] [address] [address] July, 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 current use of anticoagulant Z79.01 [facility] [address], [place] [address] July, [facility] [address] [address] July, correction current use of anticoagulant Z79.01 [place] [id number] [place] [address] 53965- 9946 Jun, correction current use of anticoagulant Z79.01 [address] [id number] [place] [address] 581131- 6136 Jun, correction current use of anticoagulant Z79.01 [address] [id number] [place] [address] 57470- 7156 Jun, 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 current use of anticoagulant Z79.01 [place] [id number] [place] [address] 804130- 3196 Jun, correction current use of anticoagulant Z79.01 [place] [id number] [place] [address] 45277- 9646 Jun, Fatigue, unspecified type R53.83 and Non-intractable vomiting with nausea, unspecified vomiting type R11.2 [address] [address] [place] [address] 26358- 4951 Jun, correction current use of anticoagulant Z79.01 and Non- intractable vomiting with nausea, unspecified vomiting type R11.2 [address] [address] [place] [address] 53085- 9581 May, correction current use of anticoagulant Z79.01 [address] [address] [place] [address] 556259- 0926 May, correction current use of anticoagulant Z79.01 [address] [address] [place] [address] 04443- 3736 May, [place] [id number] [place] [address] 982317- 0736 May, correction current use of anticoagulant Z79.01 [address] [id number] [place] [address] 097259- 5419 May, correction current use of anticoagulant Z79.01 [address] [address] [place] [address] 61244- 1573 May, Fall, initial encounter W19.XXXA ; Toe pain, right M79.674 and Dizziness R42 [place] [id number] [place] [address] 19261- 9613 May, 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 current use of anticoagulant Z79.01 [place] [id number] [place] [address] 25596- 1046 May, 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 current use of anticoagulant Z79.01 [address] [id number] [place] [address] 47110- 8003 May, correction current use of anticoagulant Z79.01 [address] [place] [id number] [place] [address] 23004- 5940 Apr, [place] [id number] [place] [address] 99558- 7662 Apr, 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 current use of anticoagulant Z79.01 [address] [id number] [place] [address] 60084- 5454 Apr, correction current use of anticoagulant Z79.01 [address] [id number] [place] [address] 42550- 2687 Apr, 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 current use of anticoagulant Z79.01 ; Hemodialysis -associated hypotension I95.3 ; Varicose veins of left lower extremity I83.92 and Advance directive discussed with patient Z71.89 [address] [id number] [place] [address] 55485- 2704 Mar, [address] [id number] [place] [address] 70170- 4885 Mar, 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 current use of anticoagulant Z79.01 [address] [id number] [place] [address]658- 7527 Mar, correction current use of anticoagulant Z79.01 [address] [place], [place] [address] 27[address] Mar, [address] [id number] [place] [address] 58017- 1115 Mar, correction current use of anticoagulant Z79.01 and Encounter for therapeutic drug level monitoring Z51.81 [address] [id number] [place] [address] 18787- 8929 Mar, Atrial fibrillation, unspecified type I48.91 [place] [id number] [place] [address] 59115- 6515 Feb, Atrial fibrillation, unspecified type I48.91 [place] [id number] [place] [address] 61479- 3319 Feb, Atrial fibrillation, unspecified type I48.91 [address] [id number] [place] [address] 44522- 2646 Feb, Chronic anticoagulation Z79.01 ; Chronic fatigue R53.82 ; Hemodialysis-associated hypotension I95.3 ; 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.2 and End stage renal disease N18.6 [address] [place] [address] 95252- 4086 Feb, [address] [place] [place] [address] 69877- 8778 Feb, Atrial fibrillation, unspecified type I48.91 [address] [place] [address] 78972- 1033 Feb, [address] [place] [place] [address] 35214- 6343 Jan, Atrial fibrillation, unspecified type I48.91 [address], [place] [address]- 2[address] Jan, Atrial fibrillation, unspecified type I48.91 [address] [place] [place] [address] 03120- 4342 Jan, Atrial fibrillation, unspecified type I48.91 ; Insomnia, unspecified type G47.00 ; End stage renal disease N18.6 and Valvular heart disease I38 [id number] [place] [address] 89921- 7377 Jan, [address] [id number] [place] [address] 92296- 6008 Jan, Atrial fibrillation, unspecified type I48.91 [address] [address] 22516- 3145 Jan, [place] [address] 25965- 3442 Jan, [place] [address] 51556- 6689 Dec, [place] [address] 62699- 7457 Nov, Hypotension, unspecified hypotension type I95.9 ; Systolic ejection murmur I38 and Insomnia, unspecified type G47.00 [address] [id number] [place] [address] 45617- 2849 Oct, [address] [id number] [place] [address] 17504- 0341 Oct, [address] [id number] [place] [address] 04218- 8832 Aug, Screening for diabetes mellitus Z13.1 ; 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 and Systolic ejection murmur I38 [id number] [place] [address] 47138- 0331 July, Cough R05 IMMUNIZATIONS No Known Immunizations SOCIAL HISTORY Never Assessed REASON FOR VISIT Refill request PLAN OF CARE VITAL SIGNS MEDICATIONS Medication Instructions Dosage Frequency Start Date End Date Duration Status Coumadin 5 mg Orally 1 tablet along with 1mg tablets to equal 8mg MWF and 7mg on remaining days 1 tablet Apr, Active RESULTS No Results [...] History left knee replacement Hospitalization History Chest Tube-[facility] [place] 03/2015 Hospitalization History Fluid on lungs-[facility] Hospitalization History ER -shunt malfunction 10/2016 Hospitalization History ER 12/01/2016 Hospitalization History Broken left arm and fractured pelvis 12/2016 Hospitalization History back pain - [facility] ED visit [facility] 03/07/17 Hospitalization History [facility] [place]- SOA, Fluid Overload 04/12/17 Hospitalization History [facility] [place]- Bleeding/Needs stitches 04/20/2017 Hospitalization History [facility] - Shortness of breath 05/29/17
--- NOTE | 2018-04-13 16:37 | Diagnostic Imaging Report ---
CLINICAL INDICATION: Patient with general lethargy, weakness, nausea, vomiting, and decreased appetite. Patient reports nausea and vomiting x1 week. EXAM: Chest x-ray PA and lateral views. COMPARISONS: Chest x-ray dated 05/29/2017. FINDINGS: There is stable cardiomegaly with no significant pulmonary vascular congestion. There are stable increased lung markings throughout both lungs including discoid scarring in the right upper lobe region. Stable calcified granuloma in the left upper lobe. There is no new lung infiltrate. There is no pleural effusion or pneumothorax. Bones show no significant interval abnormality. IMPRESSION: 1: Stable chest x-ray exam with no interval radiographic evidence of acute cardiopulmonary process. 2: Stable increased lung markings throughout both lungs, likely related to scarring. 3: Stable cardiomegaly with no significant pulmonary vascular congestion. Dictated by: Dictated on workstation # [id number]
[2018-04-13] MEDS ORDERED: POLY17PO6 PO (17:18)
[2018-04-13 17:50] LABS: FREE T4 (FREE THYROXINE) 0.92 NG/DL (0.70-1.48)
[2018-04-13 18:00] VITALS: BP 146/62
== END 2018-04-13 18:00 | disposition home or self-care (01) ==
LOC: EDUNIT# 15:21 → ER 15:23
DX: I12.0 Hypertensive chronic kidney disease with stage 5 chronic kidney disease or end stage renal disease (principal); N18.6 End stage renal disease; R53.81 Other malaise; I48.91 Unspecified atrial fibrillation; E78.00 Pure hypercholesterolemia, unspecified; Z99.2 Dependence on renal dialysis; Z88.8 Allergy status to other drugs, medicaments and biological substances; Z88.0 Allergy status to penicillin; Z88.2 Allergy status to sulfonamides; Z91.041 Radiographic dye allergy status; Z90.49 Acquired absence of other specified parts of digestive tract; Z90.710 Acquired absence of both cervix and uterus; Z90.89 Acquired absence of other organs
CPT/HCPCS: 36415; 71046; 74176; 80053; 84439; 84443; 84484; 85007; 85027; 87040; 87804; 93005

== ENCOUNTER 2018-08-08 13:09 | Emergency (ER) | payer MEDICARE, MEDICAID ==
[~2018-08-08] VITALS: Ht 165.1 cm; Wt 52.2 kg
[~2018-08-08 13:09] MED LIST changes: -AMLO5TAB7 PO; +AMLO5TAB9 PO; +POLY17PO6 PO
[2018-08-08] MEDS ORDERED: NS IV 500 ML 500 ML IV ONE (13:21)
--- NOTE | 2018-08-08 13:26 | ED GI ---
General Chief Complaint: Abdominal/GI Problems Stated Complaint: N/V Nursing Triage Note: pt presents via EMS with c/o nausea and vomiting x several days and reports diarrhea beginning this morning. pt is on dialysis and goes on . pt denies pain at this time but does report chills. pt is afebrile upon initial triage assessment. Sepsis Screen: No Definite Risk Source of Information: Patient, EMS Exam Limitations: No Limitations History of Present Illness Date Seen by Provider: August 08, 2018 Time Seen by Provider: 13:09 Initial Comments The patient presents to ER by EMS with chief complaint that she is having some nausea vomiting abdominal pain since Wednesday, 3 days ago. She's had a cough about the same time that is productive of sputum. No fevers or chills. She has a ten-year dialysis patient. She is not having any particular pain but she is having nausea. She does her dialysis on Wednesday and Wednesday. They did not take any excess fluids yesterday. She's vomited multiple times today and yesterday. Allergies and Home Medications Allergies Coded Allergies: povidone-iodine (Verified Allergy, Mild, 12/05/16) ranitidine (Verified Allergy, Mild, 12/05/16) soap (Verified Allergy, Mild, 12/05/16) tetracycline (Verified Allergy, Mild, 12/05/16) Penicillins (Verified Allergy, Unknown, 12/05/16) Sulfa (Sulfonamide Antibiotics) (Verified Allergy, Unknown, 12/05/16) Uncoded Allergies: NARCOTIC (Allergy, Mild, 12/01/16) Home Medications Cefdinir 300 Mg Capsule, 300 MG PO UD Take 1 capsule after dialysis on and Wed Prescribed by: SANDRA MASON on 05/29/17 2300 Cinacalcet HCl 90 Mg Tablet, 90 MG PO BID, (Reported) Metoprolol Tartrate 25 Mg Tablet, 25 MG PO DAILY, (Reported) Ondansetron 4 Mg Tab.rapdis, 4 MG PO Q6H PRN for NAUSEA/VOMITING-1ST LINE Prescribed by: ENRICO LINDSEY on 08/08/18 1457 Polyethylene Glycol 3350 17 Gm Powd.pack, 17 GM PO BID Prescribed by: ANDREW SIERRA on 04/13/18 1718 Sevelamer Carbonate 800 Mg Tablet, 1,600 MG PO TIDWM, (Reported) TAKES 2 (800 MG) TABLETS Patient Home Medication List Home Medication List Reviewed: Yes Review of Systems Review of Systems Constitutional: No chills, No diaphoresis EENTM: No Blurred Vision, No Double Vision Respiratory: Cough; Denies Shortness of Air, Denies Wheezing Cardiovascular: Denies Chest Pain, Denies Edema Gastrointestinal: Denies Abdomen Distended, Denies Abdominal Pain Genitourinary: Denies Burning, Denies Discharge Musculoskeletal: No back pain, No joint pain Past Mvcaslu-Nhwnwp-Muxjid Hx Patient Social History Alcohol Use: Denies Use Recreational Drug Use: No Smoking Status: Never a Smoker 2nd Hand Smoke Exposure: No Recent Foreign Travel: No Contact w/Someone Who Travel: No Recent Infectious Disease Expo: No Recent Hopitalizations: No Immunizations Up To Date Tetanus Booster (TDap): Unknown Date of Pneumonia Vaccine: Jan 04, 2012 Date of Influenza Vaccine: Jan 09, 2017 Seasonal Allergies Seasonal Allergies: No Past Medical History Surgeries: Yes (DIALYSIS GRAFT/SHUNT RIGHT UPPER ARM; RIGHT KNEE TUMOR REMOVAL ) Appendectomy, Dialysis, Hysterectomy, Orthopedic, Tonsillectomy, Vascular Surgery Respiratory: No (fluid overload) Currently Using CPAP: No Currently Using BIPAP: No Cardiac: Yes Atrial Fibrillation, Heart Murmur, High Cholesterol, Hypertension, Irregular Heartbeat Neurological: No Reproductive Disorders: No Genitourinary: Yes Renal Failure, Dialysis Gastrointestinal: No Musculoskeletal: Yes (LEFT WRIST FRACTURE) Endocrine: No HEENT: No Cancer: No Psychosocial: Yes Integumentary: No Blood Disorders: No Adverse Reaction/Blood Tranf: No Family Medical History Patient reports no known family medical history. No Pertinent Family Hx Physical Exam Vital Signs Vital Signs - First Documented 08/08/18 08/08/18 13:16 14:21 Temp 97.7 Pulse 85 Resp 17 B/P (MAP) 169/68 (101) Pulse Ox 96 O2 Delivery Room Air O2 Flow Rate 1.00 Capillary Refill : Less Than 3 Seconds Height/Weight/BMI Height: 5'5.00" Weight: 115lbs. 0.0oz. 52.005824mq; 20.0 BMI Method:Stated General Appearance: no apparent distress, other (chronically ill) HEENT: normal ENT inspection, pharynx normal Neck: full range of motion, supple, normal inspection Respiratory: chest non-tender, lungs clear, normal breath sounds, no respiratory distress, no accessory muscle use Cardiovascular: normal peripheral pulses, regular rate, rhythm Gastrointestinal: normal bowel sounds, non tender, soft, no organomegaly Extremities: normal range of motion, no pedal edema Neurologic/Psychiatric: alert, normal mood/affect, oriented x 3 Progress/Results/Core Measures Results/Orders Lab Results Laboratory Tests Test 08/08/18 13:55 08/08/18 14:12 Range/Units White Blood Count 9.5 4.3-11.0 10^3/uL Red Blood Count 3.42 L 4.35-5.85 10^6/uL Hemoglobin 10.7 L 11.5-16.0 G/DL Hematocrit 33 L 35-52 % Mean Corpuscular Volume 97 80-99 FL Mean Corpuscular Hemoglobin 31 25-34 PG Mean Corpuscular Hemoglobin Concent 32 32-36 G/DL Red Cell Distribution Width 16.1 H 10.0-14.5 % Platelet Count 172 130-400 10^3/uL Mean Platelet Volume 9.8 7.4-10.4 FL Neutrophils (%) (Auto) 89 H 42-75 % Lymphocytes (%) (Auto) 5 L 12-44 % Monocytes (%) (Auto) 5 0-12 % Eosinophils (%) (Auto) 0 0-10 % Basophils (%) (Auto) 0 0-10 % Neutrophils # (Auto) 8.5 H 1.8-7.8 X 10^3 Lymphocytes # (Auto) 0.5 L 1.0-4.0 X 10^3 Monocytes # (Auto) 0.5 0.0-1.0 X 10^3 Eosinophils # (Auto) 0.0 0.0-0.3 10^3/uL Basophils # (Auto) 0.0 0.0-0.1 10^3/uL Neutrophils % (Manual) 88 % Lymphocytes % (Manual) 10 % Monocytes % (Manual) 0 % Eosinophils % (Manual) 1 % Basophils % (Manual) 0 % Band Neutrophils 1 % Anisocytosis SLIGHT Elliptocytes SLIGHT Sodium Level 140 135-145 MMOL/L Potassium Level 3.9 3.6-5.0 MMOL/L Chloride Level 94 L 98-107 MMOL/L Carbon Dioxide Level 31 21-32 MMOL/L Anion Gap 15 H 5-14 MMOL/L Blood Urea Nitrogen 36 H 7-18 MG/DL Creatinine 6.26 H 0.60-1.30 MG/DL Estimat Glomerular Filtration Rate 6 BUN/Creatinine Ratio 6 Glucose Level 135 H 70-105 MG/DL Calcium Level 10.6 H 8.5-10.1 MG/DL Corrected Calcium 10.5 H 8.5-10.1 MG/DL Magnesium Level 2.6 H 1.8-2.4 MG/DL Total Bilirubin 0.6 0.1-1.0 MG/DL Aspartate Amino Transf (AST/SGOT) 15 5-34 U/L Alanine Aminotransferase (ALT/SGPT) 13 0-55 U/L Alkaline Phosphatase 94 40-136 U/L C-Reactive Protein High Sensitivity 2.01 H 0.00-0.50 MG/DL Total Protein 6.6 6.4-8.2 GM/DL Albumin 4.1 3.2-4.5 GM/DL Urine Color YELLOW Urine Clarity SLIGHTLY CLOUDY Urine pH 9 5-9 Urine Specific [place] 1.015 L 1.016-1.022 Urine Protein 3+ H NEGATIVE Urine Glucose (UA) NEGATIVE NEGATIVE Urine Ketones NEGATIVE NEGATIVE Urine Nitrite NEGATIVE NEGATIVE Urine Bilirubin NEGATIVE NEGATIVE Urine Urobilinogen NORMAL NORMAL MG/DL Urine Leukocyte Esterase NEGATIVE NEGATIVE Urine RBC (Auto) NEGATIVE NEGATIVE Urine RBC RARE /HPF Urine WBC RARE /HPF Urine Squamous Epithelial Cells RARE /HPF Urine Crystals NONE /LPF Urine Bacteria NEGATIVE /HPF Urine Casts NONE /LPF Urine Mucus NEGATIVE /LPF Urine Culture Indicated NO My Orders Orders - ENRICO LINDSEY Chest Pa/Lat (2 View) (08/08/18 13:21) Cbc With Automated Diff (08/08/18 13:21) Comprehensive Metabolic Panel (08/08/18 13:21) Hs C Reactive Protein (08/08/18 13:21) Magnesium (08/08/18 13:21) Ua Culture If Indicated (08/08/18 13:21) Ed Iv/Invasive Line Start (08/08/18 13:21) Ns Iv 500 Ml (Sodium Chloride 0.9%) (08/08/18 13:21) Ed Iv/Invasive Line Start (08/08/18 13:21) Albuterol/Ipra Inhalation Soln (Duoneb I (08/08/18 13:30) Svn Small Volume Nebulizer (08/08/18 13:21) Ondansetron Injection (Zofran Injectio (08/08/18 13:30) Manual Differential (08/08/18 13:55) Medications Given in ED Current Medications Medications Dose Ordered Sig/Nisha Route Start Time Stop Time Status Last Admin Dose Admin Albuterol/ Ipratropium 3 ml ONCE ONCE INH 08/08/18 13:30 08/08/18 13:31 DC 08/08/18 14:00 3 ML Ondansetron HCl 4 mg ONCE ONCE IVP 08/08/18 13:30 08/08/18 13:31 DC 08/08/18 13:56 4 MG Sodium Chloride 500 ml @ 0 mls/hr Q0M ONCE IV 08/08/18 13:21 08/08/18 13:24 DC 08/08/18 13:56 500 MLS/HR Vital Signs/I&O 08/08/18 08/08/18 08/08/18 08/08/18 13:16 14:01 14:21 15:29 Temp 97.7 Pulse 85 71 78 Resp 17 20 15 B/P (MAP) 169/68 (101) 137/52 (80) 142/58 (86) Pulse Ox 96 93 98 96 O2 Delivery Room Air Room Air Nasal Cannula Room Air O2 Flow Rate 1.00 Blood Pressure Mean: 101 Progress Progress Note : Time: 14:41 Progress Note Labs are stable. No evidence of acute infection or fluid overload. She appears to have bronchitis and she is probably the same virus causing her viral gastroenteritis and colitis. We have given her a small amount of fluids. After the nausea medicine she's feeling much better. We'll have her go home she has Imodium we'll give her some Zofran and she has dialysis in the morning. Departure Impression Primary Impression: Acute viral bronchitis Additional Impression: Gastroenteritis and colitis, viral Disposition: 01 HOME, SELF-CARE Condition: Improved Departure-Patient Inst. Decision time for Depature: 14:53 Referrals: NALLELY SOLIMAN MD (PCP/Family) Primary Care Physician Patient Instructions: Acute Bronchitis, Adult (DC), Viral Gastroenteritis, Adult (DC) Add. Discharge Instructions: Try and drink some extra fluids over the next 24-48 hours. Allow your diarrhea to go for 24 hours then you can't keep up with your fluid intake or you are still having watery diarrhea then you may take 2 tablets of Imodium followed by one tablet every 4 hours as needed. Keep your appointment with dialysis tomorrow morning. If your symptoms get worse or you cannot control them with the Zofran 1 tablet every 6 hours as needed then you should return to the nearest ER. All discharge instructions reviewed with patient and/or family. Voiced understanding. Scripts Ondansetron (Ondansetron Odt) 4 Mg Tab.rapdis 4 MG PO Q6H PRN for NAUSEA/VOMITING-1ST LINE, #12 TAB 0 Refills Prov: ENRICO LINDSEY 08/08/18 ENRICO LINDSEY August 08, 2018 13:26
[2018-08-08] MEDS ORDERED: ONDANSETRON 4 MG/2 ML (SDV) Z0FRAN IVP ONE (13:30)
[2018-08-08] MEDS ORDERED: RT-ALBUTEROL/IPRATROPIUM 3 ML (DUONEB) VIAL INH ONE (13:30)
--- NOTE | 2018-08-08 13:57 | Diagnostic Imaging Report ---
INDICATION: Shortness of breath x2 days. EXAM: PA and lateral chest. FINDINGS: Heart appears mildly enlarged. Pulmonary vascularity is normal. There is some perihilar atelectasis. There is a tiny right pleural effusion. IMPRESSION: Discoid atelectasis. Small right pleural effusion. There is cardiomegaly without evidence of pulmonary venous hypertension. There are granulomatous changes in the left upper lobe. Dictated by: Dictated on workstation # [id number]
[2018-08-08 14:05] LABS: BASOPHILS % (AUTO) 0 % (0-10); EOSINOPHILS % (AUTO) 0 % (0-10); HEMATOCRIT 33 % (35-52); HEMOGLOBIN 10.7 G/DL (11.5-16.0); LYMPHOCYTES # (AUTO) 0.5 X 10^3 (1.0-4.0); LYMPHOCYTES % (AUTO) 5 % (12-44); MEAN CORPUSCULAR HEMOGLOBIN 31 PG (25-34); MEAN CORPUSCULAR HGB CONC 32 G/DL (32-36); MEAN CORPUSCULAR VOLUME 97 FL (80-99); MEAN PLATELET VOLUME 9.8 FL (7.4-10.4); MONOCYTES # (AUTO) 0.5 X 10^3 (0.0-1.0); MONOCYTES % (AUTO) 5 % (0-12); NEUTROPHILS # (AUTO) 8.5 X 10^3 (1.8-7.8); NEUTROPHILS % (AUTO) 89 % (42-75); PLATELET COUNT 172 10^3/uL (130-400); RED CELL DISTRIBUTION WIDTH 16.1 % (10.0-14.5); WHITE BLOOD COUNT 9.5 10^3/uL (4.3-11.0)
--- NOTE | 2018-08-08 14:12 | NUR ---
Prior to straight cath, this RN verified allergies with pt. pt states that she was not allergic to povidone-iodine. RN informed pt that the straight catheter kit uses povidone-iodine and that she needed to know what happens when pt is exposed to povidone-iodine. "I don't know why that's on the list. I've used it before and nothing has happened. It's ok to use it."
[2018-08-08 14:21] VITALS: BP 137/52
[2018-08-08 14:21] LABS: BILIRUBIN,URINE NEGATIVE (NEGATIVE); CLARITY,URINE SLIGHTLY CLOUDY; COLOR,URINE YELLOW; GLUCOSE, URINE (UA) NEGATIVE (NEGATIVE); KETONES,URINE NEGATIVE (NEGATIVE); LEUKOCYTE ESTERASE ,URINE NEGATIVE (NEGATIVE); NITRITE,URINE NEGATIVE (NEGATIVE); PH,URINE 9 (5-9); PROTEIN,URINE 3+ (NEGATIVE); UROBILINOGEN,URINE NORMAL (NORMAL)
[2018-08-08 14:22] LABS: ALBUMIN 4.1 GM/DL (3.2-4.5); BILIRUBIN,TOTAL 0.6 MG/DL (0.1-1.0); CALCIUM 10.6 MG/DL (8.5-10.1); CREATININE SERUM 6.26 MG/DL (0.60-1.30); MAGNESIUM 2.6 MG/DL (1.8-2.4); POTASSIUM 3.9 MMOL/L (3.6-5.0); TOTAL PROTEIN 6.6 GM/DL (6.4-8.2)
--- NOTE | 2018-08-08 14:22 | NUR ---
PT OXYGENATION DROPPED SO THIS RN SAT PT UP IN BED BUT MADE NO CHANGE IN OXYGEN LEVEL. THIS RN PLACED PT ON 1L PER NC AT THIS TIME.
[2018-08-08 14:29] LABS: BACTERIA,URINE NEGATIVE /HPF; RBC,URINE RARE /HPF; SQUAMOUS EPITHELIAL CELL,UR RARE /HPF; WBC,URINE RARE /HPF
[2018-08-08 14:38] LABS: ANISOCYTOSIS SLIGHT; BAND NEUTROPHILS 1 %; BASOPHILS % (MANUAL) 0 %; ELLIPT/OVALOCYTES SLIGHT; EOSINOPHILS % (MANUAL) 1 %; LYMPHOCYTES % (MANUAL) 10 %; MONOCYTES % (MANUAL) 0 %; NEUTROPHILS % (MANUAL) 88 %
--- OUTSIDE RECORDS SUMMARY | 2018-08-08 14:56 | XMS REPORT | Clinical Summary ---
Author Author [facility] Organization [facility] Address Unknown Phone Unavailable Care Team Providers Care Shear Grinder Operator Name Role Phone Aric Escoto MD PCP Martine Blanca MD Unavailable Unavailable Source Comments Some departments are not documenting in the electronic medical record. If you do not see the information that you expected, contact Release of Information in the Health Information Management department at [phone] for further assistance in locating additional records.[facility] Allergies Comments Active Allergy Reactions Severity Noted [...] (1 of 2 - PCV13) INFLUENZA VACCINE 12/27/2018 Results Not on filefrom Last 3 Months Insurance Type Payer Benefit Subscriber ID Effective Phone Address Plan / Dates Group Medicare MEDICARE MEDICARE xxxxxxxxxx 2005-P PART A AND resent B Medicare MEDICARE MEDICARE xxxxxxxxxx 2005-P [place]ANS[place] 2013- [place] Present [facility] xxxxxxxxx 2013- [place] HEALTH/SNF /SHELTER [facility] Self 1940 [address]) [address] [place] [address] (Work) Advance Directives Patient has advance care planning documents on file. For more information, please contact: [address] [place] [address]
[2018-08-08] MEDS ORDERED: ONDA4TAB11 PO (14:57)
[2018-08-08 15:29] VITALS: BP 142/58
== END 2018-08-08 15:37 | disposition home or self-care (01) ==
LOC: EDUNIT# 13:09 → ER 13:10
DX: J20.9 Acute bronchitis, unspecified (principal); A08.4 Viral intestinal infection, unspecified; I48.91 Unspecified atrial fibrillation; E78.00 Pure hypercholesterolemia, unspecified; I12.0 Hypertensive chronic kidney disease with stage 5 chronic kidney disease or end stage renal disease; N18.6 End stage renal disease; Z99.2 Dependence on renal dialysis; Z88.1 Allergy status to other antibiotic agents; Z88.0 Allergy status to penicillin; Z88.2 Allergy status to sulfonamides; Z88.8 Allergy status to other drugs, medicaments and biological substances; Z91.041 Radiographic dye allergy status; Z90.49 Acquired absence of other specified parts of digestive tract; Z90.710 Acquired absence of both cervix and uterus; Z90.89 Acquired absence of other organs; Z98.890 Other specified postprocedural states
CPT/HCPCS: 36415; 71046; 80053; 81000; 83735; 85007; 85027; 86141; 94640

== ENCOUNTER 2018-08-10 17:08 | Emergency (ER) | payer MEDICARE, MEDICAID ==
[~2018-08-10] VITALS: Ht 165.1 cm; Wt 52.2 kg
[~2018-08-10 17:08] MED LIST changes: +ONDA4TAB11 PO
[2018-08-10 17:28] LABS: BASOPHILS % (AUTO) 0 % (0-10); EOSINOPHILS # (AUTO) 0.1 10^3/uL (0.0-0.3); EOSINOPHILS % (AUTO) 1 % (0-10); HEMATOCRIT 34 % (35-52); LYMPHOCYTES # (AUTO) 1.2 X 10^3 (1.0-4.0); LYMPHOCYTES % (AUTO) 17 % (12-44); MEAN CORPUSCULAR HEMOGLOBIN 31 PG (25-34); MEAN CORPUSCULAR HGB CONC 32 G/DL (32-36); MEAN CORPUSCULAR VOLUME 97 FL (80-99); MEAN PLATELET VOLUME 10.2 FL (7.4-10.4); MONOCYTES # (AUTO) 0.7 X 10^3 (0.0-1.0); MONOCYTES % (AUTO) 10 % (0-12); NEUTROPHILS # (AUTO) 5.1 X 10^3 (1.8-7.8); NEUTROPHILS % (AUTO) 72 % (42-75); PLATELET COUNT 171 10^3/uL (130-400); RED CELL DISTRIBUTION WIDTH 15.4 % (10.0-14.5)
[2018-08-10 17:45] LABS: ALBUMIN 3.9 GM/DL (3.2-4.5); BILIRUBIN,TOTAL 0.5 MG/DL (0.1-1.0); CALCIUM 9.9 MG/DL (8.5-10.1); CREATININE SERUM 5.11 MG/DL (0.60-1.30); MAGNESIUM 2.3 MG/DL (1.8-2.4); POTASSIUM 4.3 MMOL/L (3.6-5.0); TOTAL PROTEIN 6.4 GM/DL (6.4-8.2)
--- NOTE | 2018-08-10 17:47 | Diagnostic Imaging Report ---
INDICATION: Dyspnea and cough. EXAMINATION: PA and lateral views of the chest are obtained with comparison made to study of 08/08/2018. FINDINGS: There is mild cardiomegaly. Air trapping is seen bilaterally. There are prominent interstitial markings throughout the lungs. Increased density is seen in the parahilar regions. There has been slight increase in blunting of the costophrenic sulci. IMPRESSION: Mild cardiomegaly with probable background COPD. There may be mild developing pleural fluid. Otherwise, no significant change is detected. Dictated by: Dictated on workstation # [id number]
[2018-08-10] MEDS ORDERED: RT-ALBUTEROL/IPRATROPIUM 3 ML (DUONEB) VIAL INH ONE (18:00)
[2018-08-10] MEDS ORDERED: methylPREDNISolone 125 MG (Solu-MEDROL) VIAL IVP ONE (18:00)
--- NOTE | 2018-08-10 18:02 | NUR ---
LUTHER IN TALKING TO PT AT THIS TIME.
--- NOTE | 2018-08-10 18:15 | NUR ---
RT NOTIFIED OF PT NEEDING A TREATMENT.
--- NOTE | 2018-08-10 18:19 | ED Respiratory ---
General Chief Complaint: Respiratory Problems Stated Complaint: SOA Nursing Triage Note: PT BROUGHT IN BY EMS FROM HOME WITH COMPLAINT OF SOA. PT WAS SEEN YESTERDAY IN ER AND DIAGNOSED WITH BRONCHITIS. STATES SHE WAS ONLY GIVEN MEDICINE FOR NAUSEA YESTERDAY. STATES SYMPTOMS WORSENED THIS AM. PER EMS, PT WA 89% ON RA AT HOME Source: patient Exam Limitations: no limitations History of Present Illness Date Seen by Provider: August 10, 2018 Time Seen by Provider: 17:18 Initial Comments 78-year-old female who was brought to the emergency room by [facility] for complaints of increasing shortness of breath. She was seen yesterday in the emergency room and had a diagnosis of viral gastroenteritis and viral bronchitis. She reports that she received a prescription for Zofran yesterday but has not taking any of the medication. She reports that her symptoms worsened this morning. She was 89% on room air on arrival of EMS. They did give a breathing treatment in route that improved her course lung sounds. She denies fevers. She is end-stage renal failure and on dialysis which she receives Wednesday, , Wednesday. Timing/Duration: week, getting worse Prior Episodes/Possible Cause: no prior episodes Associated Symptoms: cough, shortness of breath Allergies and Home Medications Allergies Coded Allergies: povidone-iodine (Verified Allergy, Mild, 12/05/16) ranitidine (Verified Allergy, Mild, 12/05/16) soap (Verified Allergy, Mild, 12/05/16) tetracycline (Verified Allergy, Mild, 12/05/16) Penicillins (Verified Allergy, Unknown, 12/05/16) Sulfa (Sulfonamide Antibiotics) (Verified Allergy, Unknown, 12/05/16) Uncoded Allergies: NARCOTIC (Allergy, Mild, 12/01/16) Home Medications Cefdinir 300 Mg Capsule, 300 MG PO UD Take 1 capsule after dialysis on Wed, and Wed Prescribed by: SANDRA MASON on 05/29/17 2300 Cinacalcet HCl 90 Mg Tablet, 90 MG PO BID, (Reported) Metoprolol Tartrate 25 Mg Tablet, 25 MG PO DAILY, (Reported) Ondansetron 4 Mg Tab.rapdis, 4 MG PO Q6H PRN for NAUSEA/VOMITING-1ST LINE Prescribed by: ENRICO LINDSEY on 08/08/18 1457 Polyethylene Glycol 3350 17 Gm Powd.pack, 17 GM PO BID Prescribed by: ANDREW SIERRA on 04/13/18 1718 Sevelamer Carbonate 800 Mg Tablet, 1,600 MG PO TIDWM, (Reported) TAKES 2 (800 MG) TABLETS Patient Home Medication List Home Medication List Reviewed: Yes Review of Systems Review of Systems Constitutional: see HPI; No chills Respiratory: see HPI, cough, short of breath All Other Systems Reviewed Negative Unless Noted: Yes Past Jztcaxh-Fielnb-Yvcfxi Hx Past Med/Social Hx: Reviewed Nursing Past Med/Soc Hx Patient Social History Alcohol Use: Denies Use Recreational Drug Use: No Smoking Status: Never a Smoker 2nd Hand Smoke Exposure: No Recent Foreign Travel: No Contact w/Someone Who Travel: No Recent Infectious Disease Expo: No Recent Hopitalizations: No Immunizations Up To Date Tetanus Booster (TDap): Unknown Date of Pneumonia Vaccine: Jan 04, 2012 Date of Influenza Vaccine: Jan 09, 2017 Seasonal Allergies Seasonal Allergies: No Past Medical History Surgeries: Yes (DIALYSIS GRAFT/SHUNT RIGHT UPPER ARM; RIGHT KNEE TUMOR REMOVAL ) Appendectomy, Dialysis, Hysterectomy, Orthopedic, Tonsillectomy, Vascular Surgery Respiratory: No (fluid overload) Currently Using CPAP: No Currently Using BIPAP: No Cardiac: Yes Atrial Fibrillation, Heart Murmur, High Cholesterol, Hypertension, Irregular Heartbeat Neurological: No Reproductive Disorders: No Genitourinary: Yes Renal Failure, Dialysis Gastrointestinal: No Musculoskeletal: Yes (LEFT WRIST FRACTURE) Endocrine: No HEENT: No Cancer: No Psychosocial: Yes Integumentary: No Blood Disorders: No Adverse Reaction/Blood Tranf: No Family Medical History Reviewed Nursing Family Hx Patient reports no known family medical history. No Pertinent Family Hx Physical Exam Vital Signs - First Documented 08/10/18 17:10 Temp 98.5 Pulse 78 Resp 20 B/P (MAP) 146/60 (88) Pulse Ox 94 O2 Delivery Nasal Cannula O2 Flow Rate 2.00 Capillary Refill : Less Than 3 Seconds Height: 5'5.00" Weight: 115lbs. 0.0oz. 52.619863pl; 20.0 BMI Method:Stated General Appearance: WD/WN, no apparent distress Respiratory: chest non-tender, no respiratory distress, no accessory muscle use , respiratory distress, wheezing (course crackles with faint wheezing throughout all lung crowley.) Cardiovascular: normal peripheral pulses, regular rate, rhythm, no edema, no gallop, no JVD, no murmur Extremities: normal capillary refill Neurologic/Psychiatric: alert, normal mood/affect, oriented x 3 Skin: normal color, warm/dry Progress/Results/Core Measures Suspected Sepsis Recent Fever Within 48 Hours: No Infection Criteria Present: None New/Unexplained Altered Menta: No Sepsis Screen: No Definite Risk SIRS Temperature:98.5 Pulse: 78 Respiratory Rate: 20 Laboratory Tests 08/10/18 17:15: White Blood Count 7.0 Blood Pressure 146 /60 Mean: 88 Laboratory Tests 08/10/18 17:15: Creatinine 5.11#H, Platelet Count 171, Total Bilirubin 0.5 Results/Orders Lab Results Laboratory Tests Test 08/10/18 17:15 Range/Units White Blood Count 7.0 4.3-11.0 10^3/uL Red Blood Count 3.54 L 4.35-5.85 10^6/uL Hemoglobin 11.0 L 11.5-16.0 G/DL Hematocrit 34 L 35-52 % Mean Corpuscular Volume 97 80-99 FL Mean Corpuscular Hemoglobin 31 25-34 PG Mean Corpuscular Hemoglobin Concent 32 32-36 G/DL Red Cell Distribution Width 15.4 H 10.0-14.5 % Platelet Count 171 130-400 10^3/uL Mean Platelet Volume 10.2 7.4-10.4 FL Neutrophils (%) (Auto) 72 42-75 % Lymphocytes (%) (Auto) 17 12-44 % Monocytes (%) (Auto) 10 0-12 % Eosinophils (%) (Auto) 1 0-10 % Basophils (%) (Auto) 0 0-10 % Neutrophils # (Auto) 5.1 1.8-7.8 X 10^3 Lymphocytes # (Auto) 1.2 1.0-4.0 X 10^3 Monocytes # (Auto) 0.7 0.0-1.0 X 10^3 Eosinophils # (Auto) 0.1 0.0-0.3 10^3/uL Basophils # (Auto) 0.0 0.0-0.1 10^3/uL Sodium Level 135 135-145 MMOL/L Potassium Level 4.3 3.6-5.0 MMOL/L Chloride Level 92 L 98-107 MMOL/L Carbon Dioxide Level 30 21-32 MMOL/L Anion Gap 13 5-14 MMOL/L Blood Urea Nitrogen 23 H 7-18 MG/DL Creatinine 5.11 #H 0.60-1.30 MG/DL Estimat Glomerular Filtration Rate 8 BUN/Creatinine Ratio 5 Glucose Level 102 70-105 MG/DL Calcium Level 9.9 8.5-10.1 MG/DL Corrected Calcium 10.0 8.5-10.1 MG/DL Magnesium Level 2.3 1.8-2.4 MG/DL Total Bilirubin 0.5 0.1-1.0 MG/DL Aspartate Amino Transf (AST/SGOT) 18 5-34 U/L Alanine Aminotransferase (ALT/SGPT) 13 0-55 U/L Alkaline Phosphatase 86 40-136 U/L Troponin I 0.030 H <0.028 NG/ML B-Type Natriuretic Peptide 3818.8 H <100.0 PG/ML Total Protein 6.4 6.4-8.2 GM/DL Albumin 3.9 3.2-4.5 GM/DL My Orders Orders - LUTHER HICKS Cbc With Automated Diff (08/10/18 17:16) Comprehensive Metabolic Panel (08/10/18 17:16) BNP (08/10/18 17:16) Magnesium (08/10/18 17:16) O2 (08/10/18 17:16) Ed Iv/Invasive Line Start (08/10/18 17:16) Monitor-Rhythm Ecg Trace Only (08/10/18 17:16) Chest Pa/Lat (2 View) (08/10/18 17:16) Albuterol/Ipra Inhalation Soln (Duoneb I (08/10/18 18:00) Svn Small Volume Nebulizer (08/10/18 18:00) Methylprednisolone Sod Succ (Solu-Medrol (08/10/18 18:00) Troponin I (08/10/18 19:10) Ekg Tracing (08/10/18 19:10) Fentanyl Injection (Sublimaze Injection (08/10/18 19:15) Aspirin Chewable Tablet (Baby Aspirin Ch (08/10/18 20:15) Medications Given in ED Current Medications Medications Dose Ordered Sig/Nisha Route Start Time Stop Time Status Last Admin Dose Admin Albuterol/ Ipratropium 3 ml ONCE ONCE INH 08/10/18 18:00 08/10/18 18:01 DC 08/10/18 18:25 3 ML Aspirin 324 mg ONCE ONCE PO 08/10/18 20:15 08/10/18 20:16 DC 08/10/18 20:07 324 MG Fentanyl Citrate 12.5 mcg ONCE ONCE IVP 08/10/18 19:15 08/10/18 19:16 DC 08/10/18 19:20 12.5 MCG Methylprednisolone Sodium Succinate 125 mg ONCE ONCE IVP 08/10/18 18:00 08/10/18 18:01 DC 08/10/18 18:15 125 MG Vital Signs/I&O 08/10/18 08/10/18 08/10/18 17:10 18:28 22:30 Temp 98.5 Pulse 78 87 Resp 20 20 B/P (MAP) 146/60 (88) 151/72 (98) Pulse Ox 94 96 99 O2 Delivery Nasal Cannula Nasal Cannula Nasal Cannula O2 Flow Rate 2.00 2.00 2.00 Capillary Refill : Less Than 3 Seconds Blood Pressure Mean: 88 Progress Note : Time: 18:00 Progress Note I have seen and evaluated the patient. I've informed her of her laboratory and imaging studies. Her shortness of breath has increased we will order an additional breathing treatment. Oxygen saturation is maintaining above 90% on room air. Mild episodes of coughing. 1904: The patient has developed mild epigastric pain at this time. She is unsure if she strained her abdomen or if it is chest pain. EKG and troponin was ordered at this time. Pain medication was given. 1999: The patient's pain has improved at this time. We will be giving aspirin for elevated troponin. The patient agrees for plans of transfer and wishes to be transferred to [place]. Attempted to contact [place] was made at this time, message was left at this time. Departure Impression Primary Impression: ESRD on dialysis Additional Impression: NSTEMI (non-ST elevated myocardial infarction) Disposition: XF SHT-TRM HOSP Condition: Stable/Unchanged Transfer Time Spoke to Accepting Phy: 20:14 Transfer Progress Notes I discussed the case with Dr. Almonte at this time. He agrees to accept the patient to his cardiology services. The patient agrees with plans for transfer. Transfer Time: 21:50 Transfer Facility: [facility] Method of Transfer: EMS ([facility]) Departure-Patient Inst. Referrals: NALLELY SOLIMAN MD (PCP/Family) Primary Care Physician LUTHER HICKS August 10, 2018 18:19
--- NOTE | 2018-08-10 18:20 | NUR ---
LUTHER HAD TAKEN PT OFF OF OXYGEN. WHEN I WALKED INTO THE ROOM PT COMPLAINS OF HAVING A HARD TIME BREATHING. PULSE OX 88-90%RA. OXYGEN REAPPLIED AT 2L.
--- NOTE | 2018-08-10 18:24 | NUR ---
PULSEO OX 97% ON 2L. RT HERE FOR BREATHING TX.
--- NOTE | 2018-08-10 18:49 | NUR ---
RT REPORTS TURNING OXYGEN OFF AGAIN.
--- NOTE | 2018-08-10 19:00 | NUR ---
REPORT GIVEN TO JANAE PERALTA.
[2018-08-10] MEDS ORDERED: fentaNYL INJECTION 100 MCG/2 ML AMP IVP ONE (19:15)
[2018-08-10] MEDS ORDERED: ASPIRIN 81 MG CHEW (CHILDREN'S ASA) PO ONE (20:15)
[2018-08-10 22:30] VITALS: BP 151/72
== END 2018-08-10 22:30 | disposition short-term general hospital (02) ==
LOC: EDUNIT# 17:08 → ER 17:09
DX: I12.0 Hypertensive chronic kidney disease with stage 5 chronic kidney disease or end stage renal disease (principal); N18.6 End stage renal disease; I21.4 Non-ST elevation (NSTEMI) myocardial infarction; I48.91 Unspecified atrial fibrillation; E78.00 Pure hypercholesterolemia, unspecified; Z87.19 Personal history of other diseases of the digestive system; Z91.041 Radiographic dye allergy status; Z88.5 Allergy status to narcotic agent; Z88.1 Allergy status to other antibiotic agents; Z88.0 Allergy status to penicillin; Z92.21 Personal history of antineoplastic chemotherapy; Z90.49 Acquired absence of other specified parts of digestive tract; Z88.2 Allergy status to sulfonamides; Z90.89 Acquired absence of other organs; Z88.8 Allergy status to other drugs, medicaments and biological substances
CPT/HCPCS: 36415; 71046; 80053; 83735; 83880; 84484; 85025; 93005; 93041; 94640; 96374; 96375

== ENCOUNTER 2018-09-07 16:28 | Emergency (ER) | payer MEDICARE, MEDICAID ==
[~2018-09-07] VITALS: Ht 165.1 cm; Wt 54.4 kg
--- OUTSIDE RECORDS SUMMARY | 2018-09-07 16:33 | XMS REPORT | Clinical Summary ---
Author Author [facility] Organization [facility] Address Unknown Phone Unavailable Care Team Providers Care Armor Reconnaissance Specialist Name Role Phone Aric Escoto MD PCP Martine Blanca MD Unavailable Unavailable Source Comments Some departments are not documenting in the electronic medical record. If you d o not see the information that you expected, contact Release of Information in [facility] [employer] Information Management department at [phone] for further assistan ce in locating additional records.[facility] Allergies Comments Active Allergy Reactions Severity Noted [...] MEDICAID Present [facility]/HO xxxxxxxxx 2013- [place] Present HEALTH/SNF /[facility] Dulce Bashir A Transplant Self 1940 [address] [place] [phone] (Work) Advance Directives Patient has advance care planning documents on file. For more information, juan antonio farncis contact: [address] [address]
--- OUTSIDE RECORDS SUMMARY | 2018-09-07 16:43 | XMS REPORT | Continuity of Care Document ---
Author Organization Unknown Address Unknown Allergies Active Description Code Type Severity Reaction Onset Reported/Identified Relationship to Patient Clinical Status Yes No Known Drug Allergies [id number] Drug Allergy Unknown N/A 02/03/2016 Yes NARCOTIC NARCOTIC Mild N/A 12/01/2016 Yes povidone-iodine [id number] Drug Allergy Mild N/A 12/05/2016 Yes ranitidine [id number] Drug Allergy Mild N/A 12/05/2016 Yes soap [id number] Drug Allergy Mild N/A 12/05/2016 Yes tetracycline [id number] Drug Allergy Mild N/A 12/05/2016 Yes Penicillins [id number] Drug Allergy Unknown N/A 12/05/2016 Yes Sulfa (Sulfonamide Antibiotics) [id number] Drug Allergy Unknown N/A 12/05/2016 Medications There is no data. Problems Date Dx Coded Attending Type Code Diagnosis Diagnosed By 02/04/2016 NALLELY SOLIMAN MD, Ot D63.1 ANEMIA IN CHRONIC KIDNEY DISEASE 02/04/2016 NALLELY SOLIAMN MD, Ot E02 SUBCLINICAL IODINE-DEFICIENCY HYPOTHYROI 02/04/2016 NALLELY SOLIMAN MD, Ot I08.3 COMB RHEUMATIC DISORD OF MITRAL, AORTIC 02/04/2016 NALLELY SOLIMAN MD, Ot I12.0 HYP CHR KIDNEY DISEASE W STAGE 5 CHR KID 02/04/2016 NALLELY SOLIMAN MD, Ot I27.2 OTHER SECONDARY PULMONARY HYPERTENSION 02/04/2016 NALLELY SOLIMAN MD, Ot I48.91 UNSPECIFIED ATRIAL FIBRILLATION 02/04/2016 NALLELY SOLIMAN MD, Ot I50.31 ACUTE DIASTOLIC (CONGESTIVE) HEART FAILU 02/04/2016 NALLELY SOLIMAN MD, Ot K85.90 ACUTE PANCREATITIS WITHOUT NECROSIS OR I 02/04/2016 NALLELY SOLIMAN MD, Ot N18.6 END STAGE RENAL DISEASE 02/04/2016 NALLELY SOLIMAN MD, Ot R01.1 CARDIAC MURMUR, UNSPECIFIED 02/04/2016 JOURDAN BAER, NALLELY Hatch Ot 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 ON RENAL DIALYSIS 02/12/2016 SANDRA MASON MD Ot F41.9 ANXIETY DISORDER, UNSPECIFIED 02/12/2016 SANDRA MASON MD Ot I12.0 HYP CHR KIDNEY DISEASE W STAGE 5 CHR KID 02/12/2016 SANDRA MASON MD Ot I48.2 CHRONIC ATRIAL FIBRILLATION 02/12/2016 SANDRA MASON MD Ot I51.7 CARDIOMEGALY 02/12/2016 SANDRA MASON MD Ot N18.6 END STAGE RENAL DISEASE 02/12/2016 SANDRA MASON MD Ot R07.9 CHEST PAIN, UNSPECIFIED 02/12/2016 SANDRA MASON MD Ot Z79.01 OPERATIONS MANAGER STATION (CURRENT) USE OF ANTICOAGULANT 02/12/2016 SANDRA MASON MD Ot Z79.899 OTHER OPERATIONS MANAGER STATION (CURRENT) DRUG THERAPY 02/12/2016 SANDRA MASON MD Ot 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 ON RENAL DIALYSIS 02/13/2016 SANDRA MASON MD Ot F41.9 ANXIETY DISORDER, UNSPECIFIED 02/13/2016 SANDRA MASON MD Ot I12.0 HYP CHR KIDNEY DISEASE W STAGE 5 CHR KID 02/13/2016 SANDRA MASON MD Ot I48.2 CHRONIC ATRIAL FIBRILLATION 02/13/2016 SANDRA MASON MD Ot I51.7 CARDIOMEGALY 02/13/2016 SANDRA MASON MD Ot N18.6 END STAGE RENAL DISEASE 02/13/2016 SANDRA MASON MD Ot R07.9 CHEST PAIN, UNSPECIFIED 02/13/2016 SANDRA MASON MD Ot Z79.01 OPERATIONS MANAGER STATION (CURRENT) USE OF ANTICOAGULANT 02/13/2016 SANDRA MASON MD Ot Z79.899 OTHER RETIREMENT (CURRENT) DRUG THERAPY 02/13/2016 SANDRA MASON MD Ot 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 ON RENAL DIALYSIS 05/20/2016 Ranjit ARORA MD Ot I27.2 OTHER SECONDARY PULMONARY HYPERTENSION 05/20/2016 Ranjit ARORA MD Ot I35.1 NONRHEUMATIC AORTIC (VALVE) INSUFFICIENC 05/20/2016 Ranjit ARORA MD Ot I48.91 UNSPECIFIED ATRIAL FIBRILLATION 05/26/2016 Ranjit ARORA MD Ot I27.2 OTHER SECONDARY PULMONARY HYPERTENSION 05/26/2016 Ranjit ARORA MD Ot I35.1 NONRHEUMATIC AORTIC (VALVE) INSUFFICIENC 05/26/2016 Ranjit ARORA MD Ot I48.91 UNSPECIFIED ATRIAL FIBRILLATION 06/30/2016 Ranjit ARORA MD Ot I27.2 OTHER SECONDARY PULMONARY HYPERTENSION 06/30/2016 Ranjit ARORA MD Ot I35.1 NONRHEUMATIC AORTIC (VALVE) INSUFFICIENC 06/30/2016 Ranjit ARORA MD Ot I48.91 UNSPECIFIED ATRIAL FIBRILLATION 10/25/2016 ENRICO LINDSEY MD Ot D64.9 ANEMIA, UNSPECIFIED 10/25/2016 ENRICO LINDSEY MD Ot N18.6 END STAGE RENAL DISEASE 10/25/2016 ENRICO LINDSEY MD J Ot T82.591A [facility] COMPL OF SURGICALLY CREATED ARTERIO 10/25/2016 ENRICO LINDSEY MD J Ot Z79.01 OPERATIONS MANAGER STATION (CURRENT) USE OF ANTICOAGULANT 10/25/2016 ENRICO LINDSEY MD J Ot 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 ON RENAL DIALYSIS 10/27/2016 URIAH LINDSEY MDUS J Ot D64.9 ANEMIA, UNSPECIFIED 10/27/2016 URIAH LINDSEY MDUS J Ot N18.6 END STAGE RENAL DISEASE 10/27/2016 ENRICO LINDSEY MD J Ot T82.591A [facility] COMPL OF SURGICALLY CREATED ARTERIO 10/27/2016 ENRICO LINDSEY MD Ot Z79.01 RETIREMENT (CURRENT) USE OF ANTICOAGULANT 10/27/2016 ENRICO LINDSEY MD Ot 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 ON RENAL DIALYSIS 12/01/2016 Ranjit ARORA MD Ot I27.2 OTHER SECONDARY PULMONARY HYPERTENSION 12/01/2016 Ranjit ARORA MD Ot I35.1 NONRHEUMATIC AORTIC (VALVE) INSUFFICIENC 12/01/2016 Ranjit ARORA MD Ot I48.91 UNSPECIFIED ATRIAL FIBRILLATION 12/01/2016 SANDRA MASON MD, Ot N18.6 END STAGE RENAL DISEASE 12/01/2016 SANDRA MASON MD, Ot R25.3 FASCICULATION 12/01/2016 SANDRA MASON MD, Ot Z79.01 OPERATIONS MANAGER STATION (CURRENT) USE OF ANTICOAGULANT 12/01/2016 SANDRA MASON MD, Ot 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 ON RENAL DIALYSIS 12/05/2016 Ranjit ARORA MD Ot I27.2 OTHER SECONDARY PULMONARY HYPERTENSION 12/05/2016 Ranjit ARORA MD Ot I35.1 NONRHEUMATIC AORTIC (VALVE) INSUFFICIENC 12/05/2016 Ranjit ARORA MD Ot I48.91 UNSPECIFIED ATRIAL FIBRILLATION 12/08/2016 ARLEEN LIND MD Ot E78.00 PURE HYPERCHOLESTEROLEMIA, UNSPECIFIED 12/08/2016 ARLEEN LIND MD Ot F32.9 MAJOR DEPRESSIVE DISORDER, SINGLE EPISOD 12/08/2016 ARLEEN LIND MD Ot I08.3 COMB RHEUMATIC DISORD OF MITRAL, AORTIC 12/08/2016 ARLEEN LIND MD Ot I12.0 HYP CHR KIDNEY DISEASE W STAGE 5 CHR KID 12/08/2016 ARLEEN LIND MD, Ot I48.91 UNSPECIFIED ATRIAL FIBRILLATION 12/08/2016 ARLEEN LIND MD Ot N18.6 END STAGE RENAL DISEASE 12/08/2016 ARLEEN LIND MD Ot R01.1 CARDIAC MURMUR, UNSPECIFIED 12/08/2016 ARLEEN LIND MD Ot R64 CACHEXIA 12/08/2016 ARLEEN LIND MD Ot S32.592A OTH FRACTURE OF LEFT PUBIS, INIT ENCNTR 12/08/2016 ARLEEN LIND MD Ot S52.572A OTH INTARTIC FRACTURE OF LOWER END OF LE 12/08/2016 ARLEEN LIND MD Ot Z79.01 RETIREMENT (CURRENT) USE OF ANTICOAGULANT 12/08/2016 ARLEEN LIND MD Ot Z96.652 PRESENCE OF LEFT ARTIFICIAL KNEE JOINT 12/08/2016 ARLEEN LIND MD Ot 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 ON RENAL DIALYSIS 12/09/2016 ARLEEN LIND MD Ot E78.00 PURE HYPERCHOLESTEROLEMIA, UNSPECIFIED 12/09/2016 ARLEEN LIND MD Ot F32.9 MAJOR DEPRESSIVE DISORDER, SINGLE EPISOD 12/09/2016 ARLEEN LIND MD Ot I08.3 COMB RHEUMATIC DISORD OF MITRAL, AORTIC 12/09/2016 ARLEEN LIND MD Ot I12.0 HYP CHR KIDNEY DISEASE W STAGE 5 CHR KID 12/09/2016 ARLEEN LIND MD Ot I48.91 UNSPECIFIED ATRIAL FIBRILLATION 12/09/2016 ARLEEN LIND MD Ot K59.03 DRUG INDUCED CONSTIPATION 12/09/2016 ARLEEN LIND MD Ot N18.6 END STAGE RENAL DISEASE 12/09/2016 ARLEEN LIND MD Ot R01.1 CARDIAC MURMUR, UNSPECIFIED 12/09/2016 ARLEEN LIND MD Ot R64 CACHEXIA 12/09/2016 ARLEEN LIND MD Ot S32.592A OTH FRACTURE OF LEFT PUBIS, INIT ENCNTR 12/09/2016 ARLEEN LIND MD Ot S52.572A OTH INTARTIC FRACTURE OF LOWER END OF LE 12/09/2016 ARLEEN LIND MD Ot T40.2X5A ADVERSE EFFECT OF OTHER OPIOIDS, INITIAL 12/09/2016 ARLEEN LIND MD Ot W19.XXXA UNSPECIFIED FALL, INITIAL ENCOUNTER 12/09/2016 ARLEEN LIND MD Ot Y92.538 OT [facility] ESTABLISH 12/09/2016 ARLEEN LIND MD Ot Z79.01 OPERATIONS MANAGER STATION (CURRENT) USE OF ANTICOAGULANT 12/09/2016 ARLEEN LIND MD Ot Z96.652 PRESENCE OF LEFT ARTIFICIAL KNEE JOINT 12/09/2016 ARLEEN LIND MD Ot 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 ON RENAL DIALYSIS 03/08/2017 ENRICO LINDSEY MD Ot E78.00 PURE HYPERCHOLESTEROLEMIA, UNSPECIFIED 03/08/2017 ENRICO LINDSEY MD Ot I12.0 HYP CHR KIDNEY DISEASE W STAGE 5 CHR KID 03/08/2017 ENRICO LINDSEY MD Ot I48.91 UNSPECIFIED ATRIAL FIBRILLATION 03/08/2017 ENRICO LINDSEY MD Ot K56.7 ILEUS, UNSPECIFIED 03/08/2017 ROSALIA MD, ENRICO J Ot K59.00 CONSTIPATION, UNSPECIFIED 03/08/2017 ROSALIA BAER, ENRICO J Ot M54.5 LOW BACK PAIN 03/08/2017 ROSALIA BAER ENRICO J Ot N18.6 END STAGE RENAL DISEASE 03/08/2017 ROSALIA BAER ENRICO J Ot 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 ON RENAL DIALYSIS 03/09/2017 ROSALIA BAER ENRICO J Ot E78.00 PURE HYPERCHOLESTEROLEMIA, UNSPECIFIED 03/09/2017 ROSALIA BAER ENRICO J Ot I12.0 HYP CHR KIDNEY DISEASE W STAGE 5 CHR KID 03/09/2017 ROSALIA BAER ENRICO J Ot I48.91 UNSPECIFIED ATRIAL FIBRILLATION 03/09/2017 ROSALIA BAER ENRICO J Ot K56.7 ILEUS, UNSPECIFIED 03/09/2017 ROSALIA BAER ENRICO J Ot K59.00 CONSTIPATION, UNSPECIFIED 03/09/2017 ROSALIA BAER ENRICO J Ot M54.5 LOW BACK PAIN 03/09/2017 ROSALIA BAER ENRICO J Ot N18.6 END STAGE RENAL DISEASE 03/09/2017 ROSALIA BAER ENRICO J Ot 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 ON RENAL DIALYSIS 04/12/2017 ROSALIA BAER ENRICO J Ot E78.00 PURE HYPERCHOLESTEROLEMIA, UNSPECIFIED 04/12/2017 ROSALIA BAER ENRICO J Ot E87.79 OTHER FLUID OVERLOAD 04/12/2017 ROSALIA BAER ENRICO J Ot I12.0 HYP CHR KIDNEY DISEASE W STAGE 5 CHR KID 04/12/2017 ROSALIA BAER ENRICO J Ot I48.91 UNSPECIFIED ATRIAL FIBRILLATION 04/12/2017 ROSALIA BAER ENRICO J Ot N18.6 END STAGE RENAL DISEASE 04/12/2017 ROSALIA BAER ENRICO J Ot R06.02 SHORTNESS OF BREATH 04/12/2017 ROSALIA BAER ENRICO J Ot 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 ON RENAL DIALYSIS 04/20/2017 ANDREW SIERRA APRN Ot E78.00 PURE HYPERCHOLESTEROLEMIA, UNSPECIFIED 04/20/2017 ANDREW SIERRA MANGLE ROLLER Ot I10 ESSENTIAL (PRIMARY) HYPERTENSION 04/20/2017 ANDREW SIERRA MANGLE ROLLER Ot I48.91 UNSPECIFIED ATRIAL FIBRILLATION 04/20/2017 ANDREW SIERRA APRN Ot T82.838A HEMORRHAGE DUE TO VASCULAR PROSTH DEV/GR 04/20/2017 ANDREW SIERRA APRN Ot Z87.81 PERSONAL HISTORY OF (HEALED) TRAUMATIC F 04/20/2017 ANDREW SIERRA APRN Ot Z90.49 ACQUIRED ABSENCE OF OTHER SPECIFIED PART 04/20/2017 ANDREW SIERRA APRN Ot Z90.710 ACQUIRED ABSENCE OF BOTH CERVIX AND UTER 04/20/2017 ANDREW SIERRA APRN Ot Z90.89 ACQUIRED ABSENCE OF OTHER ORGANS 05/29/2017 SANDRA MASON MD Ot E78.00 PURE HYPERCHOLESTEROLEMIA, UNSPECIFIED 05/29/2017 SANDRA MASON MD Ot I12.0 HYP CHR KIDNEY DISEASE W STAGE 5 CHR KID 05/29/2017 SANDRA MASON MD Ot I48.91 UNSPECIFIED ATRIAL FIBRILLATION 05/29/2017 SANDRA MASON MD Ot J32.9 CHRONIC SINUSITIS, UNSPECIFIED 05/29/2017 SANDRA MASON MD Ot J40 BRONCHITIS, NOT SPECIFIED ACUTE OR CH 05/29/2017 SANDRA MASON MD Ot N18.6 END STAGE RENAL DISEASE 05/29/2017 SANDRA MASON MD Ot R05 COUGH 05/29/2017 SANDRA MASON MD Ot Z04.9 ENCOUNTER FOR EXAMINATION AND OBSERVATIO 05/29/2017 SANDRA MASON MD Ot Z88.0 ALLERGY STATUS TO PENICILLIN 05/29/2017 SANDRA MASON MD Ot Z88.2 ALLERGY STATUS TO SULFONAMIDES STATUS 05/29/2017 SANDRA MASON MD Ot Z88.8 ALLERGY STATUS TO OTH DRUG/MEDS/BIOL SUB 05/29/2017 SANDRA MASON MD Ot Z90.710 ACQUIRED ABSENCE OF BOTH CERVIX AND UTER 05/29/2017 SANDRA MASON MD Ot Z90.89 ACQUIRED ABSENCE OF OTHER ORGANS 05/29/2017 SANDRA MASON MD Ot 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 ON RENAL DIALYSIS 06/04/2017 SANDRA MASON MD Ot E78.00 PURE HYPERCHOLESTEROLEMIA, UNSPECIFIED 06/04/2017 SANDRA MASON MD Ot I12.0 HYP CHR KIDNEY DISEASE W STAGE 5 CHR KID 06/04/2017 SANDRA MASON MD Ot I48.91 UNSPECIFIED ATRIAL FIBRILLATION 06/04/2017 SANDRA MASON MD Ot J32.9 CHRONIC SINUSITIS, UNSPECIFIED 06/04/2017 SANDRA MASON MD, Ot J40 BRONCHITIS, NOT SPECIFIED ACUTE OR CH 06/04/2017 SANDRA MASON MD, Ot N18.6 END STAGE RENAL DISEASE 06/04/2017 SANDRA MASON MD, Ot R05 COUGH 06/04/2017 SANDRA MASON MD, Ot Z04.9 ENCOUNTER FOR EXAMINATION AND OBSERVATIO 06/04/2017 SANDRA MASON MD Ot Z88.0 ALLERGY STATUS TO PENICILLIN 06/04/2017 SANDRA MASON MD, Ot Z88.2 ALLERGY STATUS TO SULFONAMIDES STATUS 06/04/2017 SANDRA MASON MD, Ot Z88.8 ALLERGY STATUS TO OTH DRUG/MEDS/BIOL SUB 06/04/2017 SANDRA MASON MD Ot Z90.710 ACQUIRED ABSENCE OF BOTH CERVIX AND UTER 06/04/2017 SANDRA MASON MD Ot Z90.89 ACQUIRED ABSENCE OF OTHER ORGANS 06/04/2017 SNADRA MASON MD Ot 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 ON RENAL DIALYSIS 06/15/2017 NALLELY SOLIMAN MD R Ot D64.9 ANEMIA, UNSPECIFIED 06/23/2017 NALLELY SOLIMAN MD R Ot D64.9 ANEMIA, UNSPECIFIED 04/13/2018 NALLELY SOLIMAN MD R Ot D64.9 ANEMIA, UNSPECIFIED 04/13/2018 ANDREW SIERRA APRN Ot E78.00 PURE HYPERCHOLESTEROLEMIA, UNSPECIFIED 04/13/2018 ANDREW SIERRA APRN Ot I12.0 HYP CHR KIDNEY DISEASE W STAGE 5 CHR KID 04/13/2018 ANDREW SIERRA APRN Ot I48.91 UNSPECIFIED ATRIAL FIBRILLATION 04/13/2018 ANDREW SIERRA APRN Ot N18.6 END STAGE RENAL DISEASE 04/13/2018 ANDREW SIERRA APRN Ot R53.1 WEAKNESS 04/13/2018 ANDREW SIERRA APRN Ot R53.81 OTHER MALAISE 04/13/2018 ANDREW SIERRA APRN Ot Z88.0 ALLERGY STATUS TO PENICILLIN 04/13/2018 ANDREW SIERRA APRN Ot Z88.2 ALLERGY STATUS TO SULFONAMIDES STATUS 04/13/2018 ANDREW SIERRA APRN Ot Z88.8 ALLERGY STATUS TO OTH DRUG/MEDS/BIOL SUB 04/13/2018 ANDREW SIERRA APRN Ot Z90.49 ACQUIRED ABSENCE OF OTHER SPECIFIED PART 04/13/2018 ANDREW SIERRA APRN Ot Z90.710 ACQUIRED ABSENCE OF BOTH CERVIX AND UTER 04/13/2018 ANDREW SIERRA APRN Ot Z90.89 ACQUIRED ABSENCE OF OTHER ORGANS 04/13/2018 ANDREW SIERRA APRN Ot Z91.041 RADIOGRAPHIC DYE ALLERGY STATUS 04/13/2018 ANDREW SIERRA APRN Ot 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 ON RENAL DIALYSIS 04/15/2018 ANDREW SIERRA APRN Ot E78.00 PURE HYPERCHOLESTEROLEMIA, UNSPECIFIED 04/15/2018 ANDREW SIERRA APRN Ot I12.0 HYP CHR KIDNEY DISEASE W STAGE 5 CHR KID 04/15/2018 ANDREW SIERRA APRN Ot I48.91 UNSPECIFIED ATRIAL FIBRILLATION 04/15/2018 ANDREW SIERRA APRN Ot N18.6 END STAGE RENAL DISEASE 04/15/2018 ANDREW SIERRA APRN Ot R53.1 WEAKNESS 04/15/2018 ANDREW SIERRA APRN Ot R53.81 OTHER MALAISE 04/15/2018 ANDREW SIERRA APRN Ot Z88.0 ALLERGY STATUS TO PENICILLIN 04/15/2018 ANDREW SIERRA APRN Ot Z88.2 ALLERGY STATUS TO SULFONAMIDES STATUS 04/15/2018 ANDREW SIERRA APRN Ot Z88.8 ALLERGY STATUS TO OTH DRUG/MEDS/BIOL SUB 04/15/2018 ANDREW SIERRA APRN Ot Z90.49 ACQUIRED ABSENCE OF OTHER SPECIFIED PART 04/15/2018 ANDREW SIERRA APRN Ot Z90.710 ACQUIRED ABSENCE OF BOTH CERVIX AND UTER 04/15/2018 ANDREW SIERRA APRN Ot Z90.89 ACQUIRED ABSENCE OF OTHER ORGANS 04/15/2018 ANDREW SIERRA APRN Ot Z91.041 RADIOGRAPHIC DYE ALLERGY STATUS 04/15/2018 ANDREW SIERRA APRN Ot 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 ON RENAL DIALYSIS 08/08/2018 ENRICO LINDSEY MD Ot A08.4 VIRAL INTESTINAL INFECTION, UNSPECIFIED 08/08/2018 ENRICO LINDSEY MD Ot E78.00 PURE HYPERCHOLESTEROLEMIA, UNSPECIFIED 08/08/2018 ENRICO LINDSEY MD Ot I12.0 HYP CHR KIDNEY DISEASE W STAGE 5 CHR KID 08/08/2018 ENRICO LINDSEY MD Ot I48.91 UNSPECIFIED ATRIAL FIBRILLATION 08/08/2018 ENRICO LINDSEY MD Ot J20.9 ACUTE BRONCHITIS, UNSPECIFIED 08/08/2018 ENRICO LINDSEY MD Ot N18.6 END STAGE RENAL DISEASE 08/08/2018 ENRICO LINDSEY MD Ot R11.2 NAUSEA WITH VOMITING, UNSPECIFIED 08/08/2018 ENRICO LINDSEY MD Ot Z88.0 ALLERGY STATUS TO PENICILLIN 08/08/2018 ENRICO LINDSEY MD Ot Z88.1 ALLERGY STATUS TO OTHER ANTIBIOTIC AGENT 08/08/2018 ENRICO LINDSEY MD Ot Z88.2 ALLERGY STATUS TO SULFONAMIDES STATUS 08/08/2018 ENRICO LINDSEY MD Ot Z88.8 ALLERGY STATUS TO OTH DRUG/MEDS/BIOL SUB 08/08/2018 ENRICO LINDSEY MD Ot Z90.49 ACQUIRED ABSENCE OF OTHER SPECIFIED PART 08/08/2018 ENRICO LINDSEY MD Ot Z90.710 ACQUIRED ABSENCE OF BOTH CERVIX AND UTER 08/08/2018 ENRICO LINDSEY MD Ot Z90.89 ACQUIRED ABSENCE OF OTHER ORGANS 08/08/2018 ENRICO LINDSEY MD Ot Z91.041 RADIOGRAPHIC DYE ALLERGY STATUS 08/08/2018 ENRICO LINDSEY MD Ot Z98.890 OTHER SPECIFIED POSTPROCEDURAL STATES 08/08/2018 ENRICO LINDSEY MD Ot 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 ON RENAL DIALYSIS 08/10/2018 BERNOT, LUTHER Ot E78.00 PURE HYPERCHOLESTEROLEMIA, UNSPECIFIED 08/10/2018 BERNOT, LUTHER Ot I12.0 HYP CHR KIDNEY DISEASE W STAGE 5 CHR KID 08/10/2018 BERNOT, LUTHER Ot I21.4 NON- ST ELEVATION (NSTEMI) MYOCARDIAL INF 08/10/2018 BERNOT, LUTHER Ot I48.91 UNSPECIFIED ATRIAL FIBRILLATION 08/10/2018 BERNOT, LUTHER Ot N18.6 END STAGE RENAL DISEASE 08/10/2018 BERNOT, LUTHER Ot R06.02 SHORTNESS OF BREATH 08/10/2018 BERNOT, LUTHER Ot Z87.19 PERSONAL HISTORY OF OTHER DISEASES OF TH 08/10/2018 BERNOT, LUTHER Ot Z88.0 ALLERGY STATUS TO PENICILLIN 08/10/2018 BERNOT, LUTHER Ot Z88.1 ALLERGY STATUS TO OTHER ANTIBIOTIC AGENT 08/10/2018 LUTHER HICKS Ot Z88.2 ALLERGY STATUS TO SULFONAMIDES STATUS 08/10/2018 LUTHER HICKS Ot Z88.5 ALLERGY STATUS TO NARCOTIC AGENT STATUS 08/10/2018 LUTHER HICKS Ot Z88.8 ALLERGY STATUS TO OTH DRUG/MEDS/BIOL SUB 08/10/2018 LUTHER HICKS Ot Z90.49 ACQUIRED ABSENCE OF OTHER SPECIFIED PART 08/10/2018 LUTHER HICKS Ot Z90.89 ACQUIRED ABSENCE OF OTHER ORGANS 08/10/2018 LUTHER HICKS Ot Z91.041 RADIOGRAPHIC DYE ALLERGY STATUS 08/10/2018 LUTHER HICKS Ot Z92.21 PERSONAL HISTORY OF ANTINEOPLASTIC CHEMO Procedures There is no data. Results Test Result Range Complete blood count (CBC) with automated white blood cell (WBC) differential - 02/03/16 18:38 Blood leukocytes automated count (number/volume) 5.7 10*3/uL 4.3-11.0 Blood erythrocytes automated count (number/volume) 3.63 10*6/uL 4.35-5.85 Venous blood hemoglobin measurement (mass/volume) 11.0 g/dL 11.5-16.0 Blood hematocrit (volume fraction) 33 % 35-52 Automated erythrocyte mean corpuscular volume 92 [foz_us] 80-99 Automated erythrocyte mean corpuscular hemoglobin (mass per erythrocyte) 30 pg 25-34 Automated erythrocyte mean corpuscular hemoglobin concentration measurement (mass/volume) 33 g/dL 32-36 Automated erythrocyte distribution width ratio 16.1 % 10.0- 14.5 Automated blood platelet count (count/volume) 184 10*3/uL 130-400 Automated blood platelet mean volume measurement 10.7 [foz_us] 7.4-10.4 Automated blood neutrophils/100 leukocytes 73 % 42-75 Automated blood lymphocytes/100 leukocytes 14 % 12-44 Blood monocytes/100 leukocytes 7 % 0-12 Automated blood eosinophils/100 leukocytes 6 % 0-10 Automated blood basophils/100 leukocytes 1 % 0-10 Blood neutrophils automated count (number/volume) 4.2 10*3 1.8-7.8 Blood lymphocytes automated count (number/volume) 0.8 10*3 1.0-4.0 Blood monocytes automated count (number/volume) 0.4 10*3 0.0- 1.0 Automated eosinophil count 0.4 10*3/uL 0.0-0.3 Automated blood basophil count (count/volume) 0.0 10*3/uL 0.0-0.1 Comprehensive metabolic panel - 02/03/16 18:38 Serum or plasma sodium measurement (moles/volume) 142 mmol/L 135-145 Serum or plasma potassium measurement (moles/volume) 3.7 mmol/L 3.6-5.0 Serum or plasma chloride measurement (moles/volume) 96 mmol/L 98-107 Carbon dioxide 32 mmol/L 21-32 Serum or plasma anion gap determination (moles/volume) 14 mmol/L 5-14 Serum or plasma urea nitrogen measurement (mass/volume) 27 mg/dL 7-18 Serum or plasma creatinine measurement (mass/volume) 3.49 mg/dL 0.60-1.30 Serum or plasma urea nitrogen/creatinine mass ratio 8 NRG Serum or plasma creatinine measurement with calculation of estimated glomerular filtration rate 13 NRG Serum or plasma glucose measurement (mass/volume) 87 mg/dL 70-105 Serum or plasma calcium measurement (mass/volume) 9.1 mg/dL 8.5-10.1 Serum or plasma total bilirubin measurement (mass/volume) 0.6 mg/dL 0.1-1.0 Serum or plasma alkaline phosphatase measurement (enzymatic activity/volume) 146 U/L 40-136 Serum or plasma aspartate aminotransferase measurement (enzymatic activity/volume) 14 U/L 5-34 Serum or plasma alanine aminotransferase measurement (enzymatic activity/volume) 14 U/L 0-55 Serum or plasma protein measurement (mass/volume) 6.8 g/dL 6.4-8.2 Serum or plasma albumin measurement (mass/volume) 4.1 g/dL 3.2-4.5 Magnesium - 02/03/16 18:38 Magnesium 2.6 mg/dL 1.8-2.4 Serum or plasma creatine kinase measurement (enzymatic activity/volume) - 02/03/16 18:38 Serum or plasma creatine kinase measurement (enzymatic activity/volume) 33 U/L 29-168 Serum or plasma creatine kinase MB measurement (enzymatic activity/volume) - 02/03/16 18:38 Serum or plasma creatine kinase MB measurement (enzymatic activity/volume) 1.3 ng/mL <6.6 Serum or plasma troponin i.cardiac measurement (mass/volume) - 02/03/16 18:38 Serum or plasma troponin i.cardiac measurement (mass/volume) < ng/mL <0.30 PT panel in platelet poor plasma by coagulation assay - 02/03/16 18:38 Prothrombin time (PT) in platelet poor plasma by coagulation assay 12.5 s 12.2-14.7 INR in platelet poor plasma or blood by coagulation assay 1.0 0.8-1.4 Activated partial thromboplastin time (aPTT) in platelet poor plasma bycoagulation assay - 02/03/16 18:38 Activated partial thromboplastin time (aPTT) in platelet poor plasma bycoagulation assay 30 s 24-35 Serum or plasma lithium measurement (moles/volume) - 02/03/16 18:38 BNP level 2225.8 pg/mL <100.0 Serum or plasma amylase measurement (enzymatic activity/volume) - 02/03/16 18:38 Serum or plasma amylase measurement (enzymatic activity/volume) 277 U/L 25-125 Lipase - 02/03/16 18:38 Lipase 116 U/L 8-78 Serum or plasma thyroxine (T4) free measurement (mass/volume) - 02/03/16 18:38 Serum or plasma thyroxine (T4) free measurement (mass/volume) 0.76 ng/dL 0.70-1.48 Serum or plasma thyrotropin measurement by detection limit <=0.05 miu/l (units/volume) - 02/03/16 18:38 Serum or plasma thyrotropin measurement by detection limit <=0.05 miu/l (units/volume) 5.50 u[iU]/mL 0.35-4.94 Complete blood count (CBC) with automated white blood cell (WBC) differential - 02/04/16 03:00 Blood leukocytes automated count (number/volume) 6.8 10*3/uL 4.3-11.0 Blood erythrocytes automated count (number/volume) 3.07 10*6/uL 4.35-5.85 Venous blood hemoglobin measurement (mass/volume) 9.3 g/dL 11.5-16.0 Blood hematocrit (volume fraction) 28 % 35-52 Automated erythrocyte mean corpuscular volume 92 [foz_us] 80-99 Automated erythrocyte mean corpuscular hemoglobin (mass per erythrocyte) 30 pg 25-34 Automated erythrocyte mean corpuscular hemoglobin concentration measurement (mass/volume) 33 g/dL 32-36 Automated erythrocyte distribution width ratio 16.2 % 10.0- 14.5 Automated blood platelet count (count/volume) 175 10*3/uL 130-400 Automated blood platelet mean volume measurement 10.6 [foz_us] 7.4-10.4 Automated blood neutrophils/100 leukocytes 70 % 42-75 Automated blood lymphocytes/100 leukocytes 16 % 12-44 Blood monocytes/100 leukocytes 9 % 0-12 Automated blood eosinophils/100 leukocytes 5 % 0-10 Automated blood basophils/100 leukocytes 1 % 0-10 Blood neutrophils automated count (number/volume) 4.8 10*3 1.8-7.8 Blood lymphocytes automated count (number/volume) 1.1 10*3 1.0-4.0 Blood monocytes automated count (number/volume) 0.6 10*3 0.0- 1.0 Automated eosinophil count 0.4 10*3/uL 0.0-0.3 Automated blood basophil count (count/volume) 0.0 10*3/uL 0.0-0.1 Activated partial thromboplastin time (aPTT) in platelet poor plasma bycoagulation assay - 02/04/16 03:00 Activated partial thromboplastin time (aPTT) in platelet poor plasma bycoagulation assay 127 s 24-35 Comprehensive metabolic panel - 02/04/16 03:00 Serum or plasma sodium measurement (moles/volume) 137 mmol/L 135-145 Serum or plasma potassium measurement (moles/volume) 4.5 mmol/L 3.6-5.0 Serum or plasma chloride measurement (moles/volume) 97 mmol/L 98-107 Carbon dioxide 28 mmol/L 21-32 Serum or plasma anion gap determination (moles/volume) 12 mmol/L 5-14 Serum or plasma urea nitrogen measurement (mass/volume) 33 mg/dL 7-18 Serum or plasma creatinine measurement (mass/volume) 4.31 mg/dL 0.60-1.30 Serum or plasma urea nitrogen/creatinine mass ratio 8 NRG Serum or plasma creatinine measurement with calculation of estimated glomerular filtration rate 10 NRG Serum or plasma glucose measurement (mass/volume) 105 mg/dL 70-105 Serum or plasma calcium measurement (mass/volume) 9.1 mg/dL 8.5-10.1 Serum or plasma total bilirubin measurement (mass/volume) 0.5 mg/dL 0.1-1.0 Serum or plasma alkaline phosphatase measurement (enzymatic activity/volume) 120 U/L 40-136 Serum or plasma aspartate aminotransferase measurement (enzymatic activity/volume) 13 U/L 5-34 Serum or plasma alanine aminotransferase measurement (enzymatic activity/volume) 13 U/L 0-55 Serum or plasma protein measurement (mass/volume) 5.7 g/dL 6.4-8.2 Serum or plasma albumin measurement (mass/volume) 3.5 g/dL 3.2-4.5 Serum or plasma phosphate measurement (mass/volume) - 02/04/16 03:00 Serum or plasma phosphate measurement (mass/volume) 3.5 mg/dL 2.3-4.7 Magnesium - 02/04/16 03:00 Magnesium 2.4 mg/dL 1.8-2.4 Activated partial thromboplastin time (aPTT) in platelet poor plasma bycoagulation assay - 02/04/16 09:55 Activated partial thromboplastin time (aPTT) in platelet poor plasma bycoagulation assay 43 s 24-35 Activated partial thromboplastin time (aPTT) in platelet poor plasma bycoagulation assay - 02/04/16 16:15 Activated partial thromboplastin time (aPTT) in platelet poor plasma bycoagulation assay 193 s 24-35 Complete blood count (CBC) with automated white blood cell (WBC) differential - 02/12/16 09:10 Blood leukocytes automated count (number/volume) 7.1 10*3/uL 4.3-11.0 Blood erythrocytes automated count (number/volume) 2.91 10*6/uL 4.35-5.85 Venous blood hemoglobin measurement (mass/volume) 9.1 g/dL 11.5-16.0 Blood hematocrit (volume fraction) 28 % 35-52 Automated erythrocyte mean corpuscular volume 95 [foz_us] 80-99 Automated erythrocyte mean corpuscular hemoglobin (mass per erythrocyte) 31 pg 25-34 Automated erythrocyte mean corpuscular hemoglobin concentration measurement (mass/volume) 33 g/dL 32-36 Automated erythrocyte distribution width ratio 17.0 % 10.0- 14.5 Automated blood platelet count (count/volume) 238 10*3/uL 130-400 Automated blood platelet mean volume measurement 10.5 [foz_us] 7.4-10.4 Automated blood neutrophils/100 leukocytes 71 % 42-75 Automated blood lymphocytes/100 leukocytes 13 % 12-44 Blood monocytes/100 leukocytes 10 % 0-12 Automated blood eosinophils/100 leukocytes 5 % 0-10 Automated blood basophils/100 leukocytes 1 % 0-10 Blood neutrophils automated count (number/volume) 5.0 10*3 1.8-7.8 Blood lymphocytes automated count (number/volume) 0.9 10*3 1.0-4.0 Blood monocytes automated count (number/volume) 0.7 10*3 0.0- 1.0 Automated eosinophil count 0.3 10*3/uL 0.0-0.3 Automated blood basophil count (count/volume) 0.1 10*3/uL 0.0-0.1 PT panel in platelet poor plasma by coagulation assay - 02/12/16 09:10 Prothrombin time (PT) in platelet poor plasma by coagulation assay 16.7 s 12.2-14.7 INR in platelet poor plasma or blood by coagulation assay 1.4 0.8-1.4 Activated partial thromboplastin time (aPTT) in platelet poor plasma bycoagulation assay - 02/12/16 09:10 Activated partial thromboplastin time (aPTT) in platelet poor plasma bycoagulation assay 33 s 24-35 Comprehensive metabolic panel - 02/12/16 09:10 Serum or plasma sodium measurement (moles/volume) 133 mmol/L 135-145 Serum or plasma potassium measurement (moles/volume) 4.3 mmol/L 3.6-5.0 Serum or plasma chloride measurement (moles/volume) 92 mmol/L 98-107 Carbon dioxide 28 mmol/L 21-32 Serum or plasma anion gap determination (moles/volume) 13 mmol/L 5-14 Serum or plasma urea nitrogen measurement (mass/volume) 40 mg/dL 7-18 Serum or plasma creatinine measurement (mass/volume) 4.92 mg/dL 0.60-1.30 Serum or plasma urea nitrogen/creatinine mass ratio 8 NRG Serum or plasma creatinine measurement with calculation of estimated glomerular filtration rate 9 NRG Serum or plasma glucose measurement (mass/volume) 149 mg/dL 70-105 Serum or plasma calcium measurement (mass/volume) 9.0 mg/dL 8.5-10.1 Serum or plasma total bilirubin measurement (mass/volume) 0.5 mg/dL 0.1-1.0 Serum or plasma alkaline phosphatase measurement (enzymatic activity/volume) 123 U/L 40-136 Serum or plasma aspartate aminotransferase measurement (enzymatic activity/volume) 43 U/L 5-34 Serum or plasma alanine aminotransferase measurement (enzymatic activity/volume) 61 U/L 0-55 Serum or plasma protein measurement (mass/volume) 6.2 g/dL 6.4-8.2 Serum or plasma albumin measurement (mass/volume) 3.7 g/dL 3.2-4.5 Magnesium - 02/12/16 09:10 Magnesium 2.6 mg/dL 1.8-2.4 Serum or plasma troponin i.cardiac measurement (mass/volume) - 02/12/16 09:10 Serum or plasma troponin i.cardiac measurement (mass/volume) < ng/mL <0.30 Myoglobin, serum - 02/12/16 09:10 Myoglobin, serum 121.5 ng/mL 10.0-92.0 Serum or plasma lithium measurement (moles/volume) - 02/12/16 09:10 BNP level 2354.8 pg/mL <100.0 Complete blood count (CBC) with automated white blood cell (WBC) differential - 10/25/16 08:55 Blood leukocytes automated count (number/volume) 5.9 10*3/uL 4.3-11.0 Blood erythrocytes automated count (number/volume) 3.72 10*6/uL 4.35-5.85 Venous blood hemoglobin measurement (mass/volume) 11.6 g/dL 11.5-16.0 Blood hematocrit (volume fraction) 36 % 35-52 Automated erythrocyte mean corpuscular volume 97 [foz_us] 80-99 Automated erythrocyte mean corpuscular hemoglobin (mass per erythrocyte) 31 pg 25-34 Automated erythrocyte mean corpuscular hemoglobin concentration measurement (mass/volume) 32 g/dL 32-36 Automated erythrocyte distribution width ratio 16.8 % 10.0- 14.5 Automated blood platelet count (count/volume) 174 10*3/uL 130-400 Automated blood platelet mean volume measurement 11.0 [foz_us] 7.4-10.4 Automated blood neutrophils/100 leukocytes 67 % 42-75 Automated blood lymphocytes/100 leukocytes 13 % 12-44 Blood monocytes/100 leukocytes 10 % 0-12 Automated blood eosinophils/100 leukocytes 9 % 0-10 Automated blood basophils/100 leukocytes 1 % 0-10 Blood neutrophils automated count (number/volume) 3.9 10*3 1.8-7.8 Blood lymphocytes automated count (number/volume) 0.8 10*3 1.0-4.0 Blood monocytes automated count (number/volume) 0.6 10*3 0.0- 1.0 Automated eosinophil count 0.5 10*3/uL 0.0-0.3 Automated blood basophil count (count/volume) 0.1 10*3/uL 0.0-0.1 PT panel in platelet poor plasma by coagulation assay - 10/25/16 08:55 Prothrombin time (PT) in platelet poor plasma by coagulation assay 17.2 s 12.2-14.7 INR in platelet poor plasma or blood by coagulation assay 1.4 0.8-1.4 Activated partial thromboplastin time (aPTT) in platelet poor plasma bycoagulation assay - 10/25/16 08:55 Activated partial thromboplastin time (aPTT) in platelet poor plasma bycoagulation assay 30 s 24-35 Comprehensive metabolic panel - 10/25/16 08:55 Serum or plasma sodium measurement (moles/volume) 137 mmol/L 135-145 Serum or plasma potassium measurement (moles/volume) 5.4 mmol/L 3.6-5.0 Serum or plasma chloride measurement (moles/volume) 96 mmol/L 98-107 Carbon dioxide 30 mmol/L 21-32 Serum or plasma anion gap determination (moles/volume) 11 mmol/L 5-14 Serum or plasma urea nitrogen measurement (mass/volume) 47 mg/dL 7-18 Serum or plasma creatinine measurement (mass/volume) 4.43 mg/dL 0.60-1.30 Serum or plasma urea nitrogen/creatinine mass ratio 11 NRG Serum or plasma creatinine measurement with calculation of estimated glomerular filtration rate 10 NRG Serum or plasma glucose measurement (mass/volume) 118 mg/dL 70-105 Serum or plasma calcium measurement (mass/volume) 10.5 mg/dL 8.5-10.1 Serum or plasma total bilirubin measurement (mass/volume) 0.4 mg/dL 0.1-1.0 Serum or plasma alkaline phosphatase measurement (enzymatic activity/volume) 80 U/L 40-136 Serum or plasma aspartate aminotransferase measurement (enzymatic activity/volume) 20 U/L 5-34 Serum or plasma alanine aminotransferase measurement (enzymatic activity/volume) 14 U/L 0-55 Serum or plasma protein measurement (mass/volume) 6.8 g/dL 6.4-8.2 Serum or plasma albumin measurement (mass/volume) 3.7 g/dL 3.2-4.5 Magnesium - 10/25/16 08:55 Magnesium 3.0 mg/dL 1.8-2.4 Serum or plasma troponin i.cardiac measurement (mass/volume) - 10/25/16 08:55 Serum or plasma troponin i.cardiac measurement (mass/volume) < ng/mL <0.30 Magnesium - 12/01/16 11:38 Magnesium 2.2 mg/dL 1.8-2.4 THYROID STIMULATING HORMONE - 12/01/16 11:38 THYROID STIMULATING HORMONE 2.23 u[iU]/mL 0.35-4.94 Serum or plasma C reactive protein measurement (mass/volume) - 12/01/16 11:38 Serum or plasma C reactive protein measurement (mass/volume) 0.14 mg/dL 0.00-0.50 Complete blood count (CBC) with automated white blood cell (WBC) differential - 12/01/16 11:40 Blood leukocytes automated count (number/volume) 6.9 10*3/uL 4.3-11.0 Blood erythrocytes automated count (number/volume) 3.77 10*6/uL 4.35-5.85 Venous blood hemoglobin measurement (mass/volume) 11.8 g/dL 11.5-16.0 Blood hematocrit (volume fraction) 36 % 35-52 Automated erythrocyte mean corpuscular volume 96 [foz_us] 80-99 Automated erythrocyte mean corpuscular hemoglobin (mass per erythrocyte) 31 pg 25-34 Automated erythrocyte mean corpuscular hemoglobin concentration measurement (mass/volume) 33 g/dL 32-36 Automated erythrocyte distribution width ratio 15.8 % 10.0- 14.5 Automated blood platelet count (count/volume) 188 10*3/uL 130-400 Automated blood platelet mean volume measurement 10.6 [foz_us] 7.4-10.4 Automated blood neutrophils/100 leukocytes 76 % 42-75 Automated blood lymphocytes/100 leukocytes 13 % 12-44 Blood monocytes/100 leukocytes 6 % 0-12 Automated blood eosinophils/100 leukocytes 4 % 0-10 Automated blood basophils/100 leukocytes 0 % 0-10 Blood neutrophils automated count (number/volume) 5.2 10*3 1.8-7.8 Blood lymphocytes automated count (number/volume) 0.9 10*3 1.0-4.0 Blood monocytes automated count (number/volume) 0.4 10*3 0.0- 1.0 Automated eosinophil count 0.3 10*3/uL 0.0-0.3 Automated blood basophil count (count/volume) 0.0 10*3/uL 0.0-0.1 Comprehensive metabolic panel - 12/01/16 11:40 Serum or plasma sodium measurement (moles/volume) 140 mmol/L 135-145 Serum or plasma potassium measurement (moles/volume) 3.8 mmol/L 3.6-5.0 Serum or plasma chloride measurement (moles/volume) 93 mmol/L 98-107 Carbon dioxide 33 mmol/L 21-32 Serum or plasma anion gap determination (moles/volume) 14 mmol/L 5-14 Serum or plasma urea nitrogen measurement (mass/volume) 14 mg/dL 7-18 Serum or plasma creatinine measurement (mass/volume) 2.61 mg/dL 0.60-1.30 Serum or plasma urea nitrogen/creatinine mass ratio 5 NRG Serum or plasma creatinine measurement with calculation of estimated glomerular filtration rate 18 NRG Serum or plasma glucose measurement (mass/volume) 112 mg/dL 70-105 Serum or plasma calcium measurement (mass/volume) 8.3 mg/dL 8.5-10.1 Serum or plasma total bilirubin measurement (mass/volume) 0.4 mg/dL 0.1-1.0 Serum or plasma alkaline phosphatase measurement (enzymatic activity/volume) 83 U/L 40-136 Serum or plasma aspartate aminotransferase measurement (enzymatic activity/volume) 19 U/L 5-34 Serum or plasma alanine aminotransferase measurement (enzymatic activity/volume) 17 U/L 0-55 Serum or plasma protein measurement (mass/volume) 7.2 g/dL 6.4-8.2 Serum or plasma albumin measurement (mass/volume) 4.1 g/dL 3.2-4.5 Complete blood count (CBC) with automated white blood cell (WBC) differential - 12/05/16 14:00 Blood leukocytes automated count (number/volume) 10.3 10*3/uL 4.3-11.0 Blood erythrocytes automated count (number/volume) 3.92 10*6/uL 4.35-5.85 Venous blood hemoglobin measurement (mass/volume) 12.4 g/dL 11.5-16.0 Blood hematocrit (volume fraction) 38 % 35-52 Automated erythrocyte mean corpuscular volume 97 [foz_us] 80-99 Automated erythrocyte mean corpuscular hemoglobin (mass per erythrocyte) 32 pg 25-34 Automated erythrocyte mean corpuscular hemoglobin concentration measurement (mass/volume) 33 g/dL 32-36 Automated erythrocyte distribution width ratio 16.3 % 10.0- 14.5 Automated blood platelet count (count/volume) 211 10*3/uL 130-400 Automated blood platelet mean volume measurement 10.3 [foz_us] 7.4-10.4 Automated blood neutrophils/100 leukocytes 85 % 42-75 Automated blood lymphocytes/100 leukocytes 7 % 12-44 Blood monocytes/100 leukocytes 5 % 0-12 Automated blood eosinophils/100 leukocytes 3 % 0-10 Automated blood basophils/100 leukocytes 0 % 0-10 Blood neutrophils automated count (number/volume) 8.8 10*3 1.8-7.8 Blood lymphocytes automated count (number/volume) 0.7 10*3 1.0-4.0 Blood monocytes automated count (number/volume) 0.5 10*3 0.0- 1.0 Automated eosinophil count 0.3 10*3/uL 0.0-0.3 Automated blood basophil count (count/volume) 0.0 10*3/uL 0.0-0.1 PT panel in platelet poor plasma by coagulation assay - 12/05/16 14:00 Prothrombin time (PT) in platelet poor plasma by coagulation assay 15.7 s 12.2-14.7 INR in platelet poor plasma or blood by coagulation assay 1.2 0.8-1.4 Activated partial thromboplastin time (aPTT) in platelet poor plasma bycoagulation assay - 12/05/16 14:00 Activated partial thromboplastin time (aPTT) in platelet poor plasma bycoagulation assay 28 s 24-35 Comprehensive metabolic panel - 12/05/16 14:00 Serum or plasma sodium measurement (moles/volume) 136 mmol/L 135-145 Serum or plasma potassium measurement (moles/volume) 5.0 mmol/L 3.6-5.0 Serum or plasma chloride measurement (moles/volume) 94 mmol/L 98-107 Carbon dioxide 30 mmol/L 21-32 Serum or plasma anion gap determination (moles/volume) 12 mmol/L 5-14 Serum or plasma urea nitrogen measurement (mass/volume) 18 mg/dL 7-18 Serum or plasma creatinine measurement (mass/volume) 2.85 mg/dL 0.60-1.30 Serum or plasma urea nitrogen/creatinine mass ratio 6 NRG Serum or plasma creatinine measurement with calculation of estimated glomerular filtration rate 16 NRG Serum or plasma glucose measurement (mass/volume) 100 mg/dL 70-105 Serum or plasma calcium measurement (mass/volume) 8.5 mg/dL 8.5-10.1 Serum or plasma total bilirubin measurement (mass/volume) 0.5 mg/dL 0.1-1.0 Serum or plasma alkaline phosphatase measurement (enzymatic activity/volume) 95 U/L 40-136 Serum or plasma aspartate aminotransferase measurement (enzymatic activity/volume) 23 U/L 5-34 Serum or plasma alanine aminotransferase measurement (enzymatic activity/volume) 26 U/L 0-55 Serum or plasma protein measurement (mass/volume) 7.1 g/dL 6.4-8.2 Serum or plasma albumin measurement (mass/volume) 4.1 g/dL 3.2-4.5 Blood manual differential performed detection - 12/05/16 14:00 Blood monocytes/100 leukocytes 3 % NR Manual blood segmented neutrophils/100 leukocytes 90 % NR Manual blood lymphocytes/100 leukocytes 4 % NR Manual eosinophils/100 leukocytes in nose 3 % NR Blood erythrocyte morphology finding identification NORMAL NR Capillary blood glucose measurement by glucometer (mass/volume) - 12/05/16 14:51 Capillary blood glucose measurement by glucometer (mass/volume) 120 mg/dL 70-110 Automated blood complete blood count (hemogram) panel - 12/07/16 05:45 Blood leukocytes automated count (number/volume) 9.5 10*3/uL 4.3-11.0 Blood erythrocytes automated count (number/volume) 3.88 10*6/uL 4.35-5.85 Venous blood hemoglobin measurement (mass/volume) 12.3 g/dL 11.5-16.0 Blood hematocrit (volume fraction) 37 % 35-52 Automated erythrocyte mean corpuscular volume 96 [foz_us] 80-99 Automated erythrocyte mean corpuscular hemoglobin (mass per erythrocyte) 32 pg 25-34 Automated erythrocyte mean corpuscular hemoglobin concentration measurement (mass/volume) 33 g/dL 32-36 Automated erythrocyte distribution width ratio 16.2 % 10.0- 14.5 Automated blood platelet count (count/volume) 145 10*3/uL 130-400 Automated blood platelet mean volume measurement 10.7 [foz_us] 7.4-10.4 Whole blood basic metabolic panel - 12/07/16 05:45 Serum or plasma sodium measurement (moles/volume) 133 mmol/L 135-145 Serum or plasma potassium measurement (moles/volume) 5.6 mmol/L 3.6-5.0 Serum or plasma chloride measurement (moles/volume) 89 mmol/L 98-107 Carbon dioxide 29 mmol/L 21-32 Serum or plasma anion gap determination (moles/volume) 15 mmol/L 5-14 Serum or plasma urea nitrogen measurement (mass/volume) 44 mg/dL 7-18 Serum or plasma creatinine measurement (mass/volume) 5.95 mg/dL 0.60-1.30 Serum or plasma urea nitrogen/creatinine mass ratio 7 NRG Serum or plasma creatinine measurement with calculation of estimated glomerular filtration rate 7 NRG Serum or plasma glucose measurement (mass/volume) 97 mg/dL 70-105 Serum or plasma calcium measurement (mass/volume) 9.6 mg/dL 8.5-10.1 PT panel in platelet poor plasma by coagulation assay - 12/07/16 05:45 Prothrombin time (PT) in platelet poor plasma by coagulation assay 14.5 s 12.2-14.7 INR in platelet poor plasma or blood by coagulation assay 1.1 0.8-1.4 Complete blood count (CBC) with automated white blood cell (WBC) differential - 12/08/16 06:00 Blood leukocytes automated count (number/volume) 9.2 10*3/uL 4.3-11.0 Blood erythrocytes automated count (number/volume) 3.80 10*6/uL 4.35-5.85 Venous blood hemoglobin measurement (mass/volume) 12.0 g/dL 11.5-16.0 Blood hematocrit (volume fraction) 36 % 35-52 Automated erythrocyte mean corpuscular volume 95 [foz_us] 80-99 Automated erythrocyte mean corpuscular hemoglobin (mass per erythrocyte) 32 pg 25-34 Automated erythrocyte mean corpuscular hemoglobin concentration measurement (mass/volume) 33 g/dL 32-36 Automated erythrocyte distribution width ratio 16.1 % 10.0- 14.5 Automated blood platelet count (count/volume) 140 10*3/uL 130-400 Automated blood platelet mean volume measurement 10.6 [[facility]] 7.4-10.4 Automated blood neutrophils/100 leukocytes 75 % 42-75 Automated blood lymphocytes/100 leukocytes 9 % 12-44 Blood monocytes/100 leukocytes 8 % 0-12 Automated blood eosinophils/100 leukocytes 8 % 0-10 Automated blood basophils/100 leukocytes 0 % 0-10 Blood neutrophils automated count (number/volume) 6.9 10*3 1.8-7.8 Blood lymphocytes automated count (number/volume) 0.9 10*3 1.0-4.0 Blood monocytes automated count (number/volume) 0.7 10*3 0.0- 1.0 Automated eosinophil count 0.7 10*3/uL 0.0-0.3 Automated blood basophil count (count/volume) 0.0 10*3/uL 0.0-0.1 Comprehensive metabolic panel - 12/08/16 06:00 Serum or plasma sodium measurement (moles/volume) 130 mmol/L 135-145 Serum or plasma potassium measurement (moles/volume) 6.6 mmol/L 3.6-5.0 Serum or plasma chloride measurement (moles/volume) 87 mmol/L 98-107 Carbon dioxide 25 mmol/L 21-32 Serum or plasma anion gap determination (moles/volume) 18 mmol/L 5-14 Serum or plasma urea nitrogen measurement (mass/volume) 63 mg/dL 7-18 Serum or plasma creatinine measurement (mass/volume) 7.12 mg/dL 0.60-1.30 Serum or plasma urea nitrogen/creatinine mass ratio 9 NRG Serum or plasma creatinine measurement with calculation of estimated glomerular filtration rate 6 NRG Serum or plasma glucose measurement (mass/volume) 81 mg/dL 70-105 Serum or plasma calcium measurement (mass/volume) 9.2 mg/dL 8.5-10.1 Serum or plasma total bilirubin measurement (mass/volume) 0.4 mg/dL 0.1-1.0 Serum or plasma alkaline phosphatase measurement (enzymatic activity/volume) 86 U/L 40-136 Serum or plasma aspartate aminotransferase measurement (enzymatic activity/volume) 15 U/L 5-34 Serum or plasma alanine aminotransferase measurement (enzymatic activity/volume) 15 U/L 0-55 Serum or plasma protein measurement (mass/volume) 7.1 g/dL 6.4-8.2 Serum or plasma albumin measurement (mass/volume) 3.7 g/dL 3.2-4.5 Complete urinalysis with reflex to culture - 03/07/17 21:42 Urine color determination YELLOW NRG Urine clarity determination SLIGHTLY CLOUDY NRG Urine pH measurement by test strip 8 5-9 Specific gravity of urine by test strip 1.010 1.016-1.022 Urine protein assay by test strip, semi-quantitative 3+ NEGATIVE Urine glucose detection by automated test strip NEGATIVE NEGATIVE Erythrocytes detection in urine sediment by light microscopy 2+ NEGATIVE Urine ketones detection by automated test strip NEGATIVE NEGATIVE Urine nitrite detection by test strip NEGATIVE NEGATIVE Urine total bilirubin detection by test strip NEGATIVE NEGATIVE Urine urobilinogen measurement by automated test strip (mass/volume) NORMAL NORMAL Urine leukocyte esterase detection by dipstick 1+ NEGATIVE Automated urine sediment erythrocyte count by microscopy (number/high power field) RARE NRG Automated urine sediment leukocyte count by microscopy (number/high power field) [HPF] NRG Bacteria detection in urine sediment by light microscopy TRACE NRG Squamous epithelial cells detection in urine sediment by light microscopy 5-10 NRG Crystals detection in urine sediment by light microscopy NONE NRG Casts detection in urine sediment by light microscopy NONE NRG Mucus detection in urine sediment by light microscopy NEGATIVE NRG Complete urinalysis with reflex to culture NO NRG Complete blood count (CBC) with automated white blood cell (WBC) differential - 03/07/17 21:48 Blood leukocytes automated count (number/volume) 7.1 10*3/uL 4.3-11.0 Blood erythrocytes automated count (number/volume) 3.44 10*6/uL 4.35-5.85 Venous blood hemoglobin measurement (mass/volume) 10.6 g/dL 11.5-16.0 Blood hematocrit (volume fraction) 33 % 35-52 Automated erythrocyte mean corpuscular volume 96 [foz_us] 80-99 Automated erythrocyte mean corpuscular hemoglobin (mass per erythrocyte) 31 pg 25-34 Automated erythrocyte mean corpuscular hemoglobin concentration measurement (mass/volume) 32 g/dL 32-36 Automated erythrocyte distribution width ratio 16.4 % 10.0- 14.5 Automated blood platelet count (count/volume) 240 10*3/uL 130-400 Automated blood platelet mean volume measurement 10.8 [foz_us] 7.4-10.4 Automated blood neutrophils/100 leukocytes 64 % 42-75 Automated blood lymphocytes/100 leukocytes 21 % 12-44 Blood monocytes/100 leukocytes 9 % 0-12 Automated blood eosinophils/100 leukocytes 5 % 0-10 Automated blood basophils/100 leukocytes 1 % 0-10 Blood neutrophils automated count (number/volume) 4.5 10*3 1.8-7.8 Blood lymphocytes automated count (number/volume) 1.5 10*3 1.0-4.0 Blood monocytes automated count (number/volume) 0.6 10*3 0.0- 1.0 Automated eosinophil count 0.4 10*3/uL 0.0-0.3 Automated blood basophil count (count/volume) 0.1 10*3/uL 0.0-0.1 Comprehensive metabolic panel - 03/07/17 21:48 Serum or plasma sodium measurement (moles/volume) 136 mmol/L 135-145 Serum or plasma potassium measurement (moles/volume) 4.1 mmol/L 3.6-5.0 Serum or plasma chloride measurement (moles/volume) 92 mmol/L 98-107 Carbon dioxide 27 mmol/L 21-32 Serum or plasma anion gap determination (moles/volume) 17 mmol/L 5-14 Serum or plasma urea nitrogen measurement (mass/volume) 47 mg/dL 7-18 Serum or plasma creatinine measurement (mass/volume) 5.69 mg/dL 0.60-1.30 Serum or plasma urea nitrogen/creatinine mass ratio 8 NRG Serum or plasma creatinine measurement with calculation of estimated glomerular filtration rate 7 NRG Serum or plasma glucose measurement (mass/volume) 84 mg/dL 70-105 Serum or plasma calcium measurement (mass/volume) 8.6 mg/dL 8.5-10.1 Serum or plasma total bilirubin measurement (mass/volume) 0.4 mg/dL 0.1-1.0 Serum or plasma alkaline phosphatase measurement (enzymatic activity/volume) 97 U/L 40-136 Serum or plasma aspartate aminotransferase measurement (enzymatic activity/volume) 19 U/L 5-34 Serum or plasma alanine aminotransferase measurement (enzymatic activity/volume) 24 U/L 0-55 Serum or plasma protein measurement (mass/volume) 7.2 g/dL 6.4-8.2 Serum or plasma albumin measurement (mass/volume) 4.0 g/dL 3.2-4.5 RED CELLS LEUKO REDUCED AS1 - 04/01/17 11:51 RED CELLS LEUKO REDUCED AS1 TRANSFUSED 04/01/17 [id number] NRG Blood type T Indirect antibody screen panel - 04/01/17 11:51 ABO+Rh group OP NRG Transfusion band number [id number] NRG Blood group antibody screen NEGATIVE NRG Whole blood hemoglobin and hematocrit panel - 04/01/17 15:00 Venous blood hemoglobin measurement (mass/volume) 8.8 g/dL 11.5-16.0 Blood hematocrit (volume fraction) 24 % 35-52 Complete blood count (CBC) with automated white blood cell (WBC) differential - 04/12/17 12:50 Blood leukocytes automated count (number/volume) 6.8 10*3/uL 4.3-11.0 Blood erythrocytes automated count (number/volume) 3.00 10*6/uL 4.35-5.85 Venous blood hemoglobin measurement (mass/volume) 9.4 g/dL 11.5-16.0 Blood hematocrit (volume fraction) 29 % 35-52 Automated erythrocyte mean corpuscular volume 97 [foz_us] 80-99 Automated erythrocyte mean corpuscular hemoglobin (mass per erythrocyte) 31 pg 25-34 Automated erythrocyte mean corpuscular hemoglobin concentration measurement (mass/volume) 32 g/dL 32-36 Automated erythrocyte distribution width ratio 15.6 % 10.0- 14.5 Automated blood platelet count (count/volume) 197 10*3/uL 130-400 Automated blood platelet mean volume measurement 11.3 [foz_us] 7.4-10.4 Automated blood neutrophils/100 leukocytes 76 % 42-75 Automated blood lymphocytes/100 leukocytes 12 % 12-44 Blood monocytes/100 leukocytes 7 % 0-12 Automated blood eosinophils/100 leukocytes 4 % 0-10 Automated blood basophils/100 leukocytes 1 % 0-10 Blood neutrophils automated count (number/volume) 5.2 10*3 1.8-7.8 Blood lymphocytes automated count (number/volume) 0.8 10*3 1.0-4.0 Blood monocytes automated count (number/volume) 0.5 10*3 0.0- 1.0 Automated eosinophil count 0.3 10*3/uL 0.0-0.3 Automated blood basophil count (count/volume) 0.1 10*3/uL 0.0-0.1 Comprehensive metabolic panel - 04/12/17 12:50 Serum or plasma sodium measurement (moles/volume) 137 mmol/L 135-145 Serum or plasma potassium measurement (moles/volume) 3.8 mmol/L 3.6-5.0 Serum or plasma chloride measurement (moles/volume) 96 mmol/L 98-107 Carbon dioxide 26 mmol/L 21-32 Serum or plasma anion gap determination (moles/volume) 15 mmol/L 5-14 Serum or plasma urea nitrogen measurement (mass/volume) 55 mg/dL 7-18 Serum or plasma creatinine measurement (mass/volume) 6.26 mg/dL 0.60-1.30 Serum or plasma urea nitrogen/creatinine mass ratio 9 NRG Serum or plasma creatinine measurement with calculation of estimated glomerular filtration rate 6 NRG Serum or plasma glucose measurement (mass/volume) 84 mg/dL 70-105 Serum or plasma calcium measurement (mass/volume) 9.0 mg/dL 8.5-10.1 Serum or plasma total bilirubin measurement (mass/volume) 0.4 mg/dL 0.1-1.0 Serum or plasma alkaline phosphatase measurement (enzymatic activity/volume) 91 U/L 40-136 Serum or plasma aspartate aminotransferase measurement (enzymatic activity/volume) 30 U/L 5-34 Serum or plasma alanine aminotransferase measurement (enzymatic activity/volume) 34 U/L 0-55 Serum or plasma protein measurement (mass/volume) 6.6 g/dL 6.4-8.2 Serum or plasma albumin measurement (mass/volume) 4.0 g/dL 3.2-4.5 Serum or plasma troponin i.cardiac measurement (mass/volume) - 04/12/17 12:50 Serum or plasma troponin i.cardiac measurement (mass/volume) < ng/mL <0.30 Serum or plasma lithium measurement (moles/volume) - 04/12/17 12:50 BNP level 3056.6 pg/mL <100.0 Influenza virus A and B antigen detection - 04/12/17 13:24 FLU RESULT NEGATIVE FOR INFLUENZA A AND B ANTIGENS BY IA NRG Automated blood complete blood count (hemogram) panel - 04/20/17 17:48 Blood leukocytes automated count (number/volume) 5.3 10*3/uL 4.3-11.0 Blood erythrocytes automated count (number/volume) 3.21 10*6/uL 4.35-5.85 Venous blood hemoglobin measurement (mass/volume) 10.2 g/dL 11.5-16.0 Blood hematocrit (volume fraction) 31 % 35-52 Automated erythrocyte mean corpuscular volume 97 [foz_us] 80-99 Automated erythrocyte mean corpuscular hemoglobin (mass per erythrocyte) 32 pg 25-34 Automated erythrocyte mean corpuscular hemoglobin concentration measurement (mass/volume) 33 g/dL 32-36 Automated erythrocyte distribution width ratio 16.3 % 10.0- 14.5 Automated blood platelet count (count/volume) 205 10*3/uL 130-400 Automated blood platelet mean volume measurement 10.2 [foz_us] 7.4-10.4 Complete blood count (CBC) with automated white blood cell (WBC) differential - 05/29/17 20:52 Blood leukocytes automated count (number/volume) 8.3 10*3/uL 4.3-11.0 Blood erythrocytes automated count (number/volume) 3.76 10*6/uL 4.35-5.85 Venous blood hemoglobin measurement (mass/volume) 11.8 g/dL 11.5-16.0 Blood hematocrit (volume fraction) 35 % 35-52 Automated erythrocyte mean corpuscular volume 94 [foz_us] 80-99 Automated erythrocyte mean corpuscular hemoglobin (mass per erythrocyte) 31 pg 25-34 Automated erythrocyte mean corpuscular hemoglobin concentration measurement (mass/volume) 33 g/dL 32-36 Automated erythrocyte distribution width ratio 14.9 % 10.0- 14.5 Automated blood platelet count (count/volume) 190 10*3/uL 130-400 Automated blood platelet mean volume measurement 11.1 [foz_us] 7.4-10.4 Automated blood neutrophils/100 leukocytes 81 % 42-75 Automated blood lymphocytes/100 leukocytes 8 % 12-44 Blood monocytes/100 leukocytes 8 % 0-12 Automated blood eosinophils/100 leukocytes 3 % 0-10 Automated blood basophils/100 leukocytes 0 % 0-10 Blood neutrophils automated count (number/volume) 6.7 10*3 1.8-7.8 Blood lymphocytes automated count (number/volume) 0.7 10*3 1.0-4.0 Blood monocytes automated count (number/volume) 0.7 10*3 0.0- 1.0 Automated eosinophil count 0.2 10*3/uL 0.0-0.3 Automated blood basophil count (count/volume) 0.0 10*3/uL 0.0-0.1 PT panel in platelet poor plasma by coagulation assay - 05/29/17 20:52 Prothrombin time (PT) in platelet poor plasma by coagulation assay 13.1 s 12.2-14.7 INR in platelet poor plasma or blood by coagulation assay 1.0 0.8-1.4 Activated partial thromboplastin time (aPTT) in platelet poor plasma bycoagulation assay - 05/29/17 20:52 Activated partial thromboplastin time (aPTT) in platelet poor plasma bycoagulation assay 89 s 24-35 Comprehensive metabolic panel - 05/29/17 20:52 Serum or plasma sodium measurement (moles/volume) 135 mmol/L 135-145 Serum or plasma potassium measurement (moles/volume) 4.4 mmol/L 3.6-5.0 Serum or plasma chloride measurement (moles/volume) 97 mmol/L 98-107 Carbon dioxide 24 mmol/L 21-32 Serum or plasma anion gap determination (moles/volume) 14 mmol/L 5-14 Serum or plasma urea nitrogen measurement (mass/volume) 23 mg/dL 7-18 Serum or plasma creatinine measurement (mass/volume) 3.48 mg/dL 0.60-1.30 Serum or plasma urea nitrogen/creatinine mass ratio 7 NRG Serum or plasma creatinine measurement with calculation of estimated glomerular filtration rate 13 NRG Serum or plasma glucose measurement (mass/volume) 91 mg/dL 70-105 Serum or plasma calcium measurement (mass/volume) 8.5 mg/dL 8.5-10.1 Serum or plasma total bilirubin measurement (mass/volume) 0.4 mg/dL 0.1-1.0 Serum or plasma alkaline phosphatase measurement (enzymatic activity/volume) 75 U/L 40-136 Serum or plasma aspartate aminotransferase measurement (enzymatic activity/volume) 23 U/L 5-34 Serum or plasma alanine aminotransferase measurement (enzymatic activity/volume) 18 U/L 0-55 Serum or plasma protein measurement (mass/volume) 6.8 g/dL 6.4-8.2 Serum or plasma albumin measurement (mass/volume) 3.9 g/dL 3.2-4.5 Serum or plasma C reactive protein measurement (mass/volume) - 05/29/17 20:52 Serum or plasma C reactive protein measurement (mass/volume) 2.39 mg/dL 0.00-0.50 Bacterial blood culture - 05/29/17 20:52 Bacterial blood culture NG NRG Blood lactic acid measurement (moles/volume) - 05/29/17 21:20 Blood lactic acid measurement (moles/volume) 0.85 mmol/L 0.50- 2.00 Bacterial blood culture - 05/29/17 21:20 Bacterial blood culture NG NR Blood CBC with ordered manual differential panel - 04/13/18 15:30 Blood leukocytes automated count (number/volume) 4.7 10*3/uL 4.3-11.0 Blood erythrocytes automated count (number/volume) 3.35 10*6/uL 4.35-5.85 Venous blood hemoglobin measurement (mass/volume) 10.4 g/dL 11.5-16.0 Blood hematocrit (volume fraction) 32 % 35-52 Automated erythrocyte mean corpuscular volume 96 [foz_us] 80-99 Automated erythrocyte mean corpuscular hemoglobin (mass per erythrocyte) 31 pg 25-34 Automated erythrocyte mean corpuscular hemoglobin concentration measurement (mass/volume) 32 g/dL 32-36 Automated erythrocyte distribution width ratio 17.7 % 10.0- 14.5 Automated blood platelet count (count/volume) 169 10*3/uL 130-400 Automated blood platelet mean volume measurement 10.8 [foz_us] 7.4-10.4 Automated blood neutrophils/100 leukocytes 70 % 42-75 Automated blood lymphocytes/100 leukocytes 18 % 12-44 Blood monocytes/100 leukocytes 7 % NRG Automated blood eosinophils/100 leukocytes 4 % 0-10 Automated blood basophils/100 leukocytes 1 % 0-10 Blood neutrophils automated count (number/volume) 3.3 10*3 1.8-7.8 Blood lymphocytes automated count (number/volume) 0.8 10*3 1.0-4.0 Blood monocytes automated count (number/volume) 0.4 10*3 0.0- 1.0 Automated eosinophil count 0.2 10*3/uL 0.0-0.3 Automated blood basophil count (count/volume) 0.0 10*3/uL 0.0-0.1 Manual blood segmented neutrophils/100 leukocytes 60 % NRG Blood band neutrophils/100 leukocytes 1 % NRG Manual blood lymphocytes/100 leukocytes 30 % NRG Manual eosinophils/100 leukocytes in nose 2 % NRG Manual blood basophils/100 leukocytes 0 % NRG Blood anisocytosis detection by light microscopy SLIGHT NR Comprehensive metabolic panel - 04/13/18 15:30 Serum or plasma sodium measurement (moles/volume) 140 mmol/L 135-145 Serum or plasma potassium measurement (moles/volume) 4.5 mmol/L 3.6-5.0 Serum or plasma chloride measurement (moles/volume) 98 mmol/L 98-107 Carbon dioxide 29 mmol/L 21-32 Serum or plasma anion gap determination (moles/volume) 13 mmol/L 5-14 Serum or plasma urea nitrogen measurement (mass/volume) 24 mg/dL 7-18 Serum or plasma creatinine measurement (mass/volume) 4.25 mg/dL 0.60-1.30 Serum or plasma urea nitrogen/creatinine mass ratio 6 NRG Serum or plasma creatinine measurement with calculation of estimated glomerular filtration rate 10 NRG Serum or plasma glucose measurement (mass/volume) 81 mg/dL 70-105 Serum or plasma calcium measurement (mass/volume) 8.5 mg/dL 8.5-10.1 Serum or plasma total bilirubin measurement (mass/volume) 0.4 mg/dL 0.1-1.0 Serum or plasma alkaline phosphatase measurement (enzymatic activity/volume) 63 U/L 40-136 Serum or plasma aspartate aminotransferase measurement (enzymatic activity/volume) 25 U/L 5-34 Serum or plasma alanine aminotransferase measurement (enzymatic activity/volume) 17 U/L 0-55 Serum or plasma protein measurement (mass/volume) 5.8 g/dL 6.4-8.2 Serum or plasma albumin measurement (mass/volume) 3.6 g/dL 3.2-4.5 CALCIUM CORRECTED 8.8 mg/dL 8.5-10.1 Serum or plasma troponin i.cardiac measurement (mass/volume) - 04/13/18 15:30 Serum or plasma troponin i.cardiac measurement (mass/volume) < ng/mL <0.028 Influenza virus A and B antigen detection - 04/13/18 15:30 FLU RESULT NEGATIVE FOR INFLUENZA A AND B ANTIGENS BY IA [facility] THYROID STIMULATING HORMONE - 04/13/18 15:30 THYROID STIMULATING HORMONE 3.17 u[iU]/mL 0.35-4.94 Serum or plasma thyroxine (T4) free measurement (mass/volume) - 04/13/18 15:30 Serum or plasma thyroxine (T4) free measurement (mass/volume) 0.92 ng/dL 0.70-1.48 Bacterial blood culture - 04/13/18 15:30 Bacterial blood culture NG NR Bacterial blood culture - 04/13/18 16:35 Bacterial blood culture NG [facility] Complete blood count (CBC) with automated white blood cell (WBC) differential - 08/08/18 13:55 Blood leukocytes automated count (number/volume) 9.5 10*3/uL 4.3-11.0 Blood erythrocytes automated count (number/volume) 3.42 10*6/uL 4.35-5.85 Venous blood hemoglobin measurement (mass/volume) 10.7 g/dL 11.5-16.0 Blood hematocrit (volume fraction) 33 % 35-52 Automated erythrocyte mean corpuscular volume 97 [foz_us] 80-99 Automated erythrocyte mean corpuscular hemoglobin (mass per erythrocyte) 31 pg 25-34 Automated erythrocyte mean corpuscular hemoglobin concentration measurement (mass/volume) 32 g/dL 32-36 Automated erythrocyte distribution width ratio 16.1 % 10.0- 14.5 Automated blood platelet count (count/volume) 172 10*3/uL 130-400 Automated blood platelet mean volume measurement 9.8 [foz_us] 7.4-10.4 Automated blood neutrophils/100 leukocytes 89 % 42-75 Automated blood lymphocytes/100 leukocytes 5 % 12-44 Blood monocytes/100 leukocytes 5 % 0-12 Automated blood eosinophils/100 leukocytes 0 % 0-10 Automated blood basophils/100 leukocytes 0 % 0-10 Blood neutrophils automated count (number/volume) 8.5 10*3 1.8-7.8 Blood lymphocytes automated count (number/volume) 0.5 10*3 1.0-4.0 Blood monocytes automated count (number/volume) 0.5 10*3 0.0- 1.0 Automated eosinophil count 0.0 10*3/uL 0.0-0.3 Automated blood basophil count (count/volume) 0.0 10*3/uL 0.0-0.1 Comprehensive metabolic panel - 08/08/18 13:55 Serum or plasma sodium measurement (moles/volume) 140 mmol/L 135-145 Serum or plasma potassium measurement (moles/volume) 3.9 mmol/L 3.6-5.0 Serum or plasma chloride measurement (moles/volume) 94 mmol/L 98-107 Carbon dioxide 31 mmol/L 21-32 Serum or plasma anion gap determination (moles/volume) 15 mmol/L 5-14 Serum or plasma urea nitrogen measurement (mass/volume) 36 mg/dL 7-18 Serum or plasma creatinine measurement (mass/volume) 6.26 mg/dL 0.60-1.30 Serum or plasma urea nitrogen/creatinine mass ratio 6 NRG Serum or plasma creatinine measurement with calculation of estimated glomerular filtration rate 6 NRG Serum or plasma glucose measurement (mass/volume) 135 mg/dL 70-105 Serum or plasma calcium measurement (mass/volume) 10.6 mg/dL 8.5-10.1 Serum or plasma total bilirubin measurement (mass/volume) 0.6 mg/dL 0.1-1.0 Serum or plasma alkaline phosphatase measurement (enzymatic activity/volume) 94 U/L 40-136 Serum or plasma aspartate aminotransferase measurement (enzymatic activity/volume) 15 U/L 5-34 Serum or plasma alanine aminotransferase measurement (enzymatic activity/volume) 13 U/L 0-55 Serum or plasma protein measurement (mass/volume) 6.6 g/dL 6.4-8.2 Serum or plasma albumin measurement (mass/volume) 4.1 g/dL 3.2-4.5 CALCIUM CORRECTED 10.5 mg/dL 8.5-10.1 Magnesium - 08/08/18 13:55 Magnesium 2.6 mg/dL 1.8-2.4 Serum or plasma C reactive protein measurement (mass/volume) - 08/08/18 13:55 Serum or plasma C reactive protein measurement (mass/volume) 2.01 mg/dL 0.00-0.50 Blood manual differential performed detection - 08/08/18 13:55 Blood monocytes/100 leukocytes 0 % NRG Manual blood segmented neutrophils/100 leukocytes 88 % NRG Blood band neutrophils/100 leukocytes 1 % NRG Manual blood lymphocytes/100 leukocytes 10 % NRG Manual eosinophils/100 leukocytes in nose 1 % NRG Manual blood basophils/100 leukocytes 0 % NRG Blood anisocytosis detection by light microscopy SLIGHT NRG Blood ovalocytes detection by light microscopy SLIGHT NRG Complete urinalysis with reflex to culture - 08/08/18 14:12 Urine color determination YELLOW NRG Urine clarity determination SLIGHTLY CLOUDY NRG Urine pH measurement by test strip 9 5-9 Specific gravity of urine by test strip 1.015 1.016-1.022 Urine protein assay by test strip, semi-quantitative 3+ NEGATIVE Urine glucose detection by automated test strip NEGATIVE NEGATIVE Erythrocytes detection in urine sediment by light microscopy NEGATIVE NEGATIVE Urine ketones detection by automated test strip NEGATIVE NEGATIVE Urine nitrite detection by test strip NEGATIVE NEGATIVE Urine total bilirubin detection by test strip NEGATIVE NEGATIVE Urine urobilinogen measurement by automated test strip (mass/volume) NORMAL NORMAL Urine leukocyte esterase detection by dipstick NEGATIVE NEGATIVE Automated urine sediment erythrocyte count by microscopy (number/high power field) RARE NRG Automated urine sediment leukocyte count by microscopy (number/high power field) RARE NRG Bacteria detection in urine sediment by light microscopy NEGATIVE NRG Squamous epithelial cells detection in urine sediment by light microscopy RARE NRG Crystals detection in urine sediment by light microscopy NONE NRG Casts detection in urine sediment by light microscopy NONE NRG Mucus detection in urine sediment by light microscopy NEGATIVE NRG Complete urinalysis with reflex to culture NO NRG Complete blood count (CBC) with automated white blood cell (WBC) differential - 08/10/18 17:15 Blood leukocytes automated count (number/volume) 7.0 10*3/uL 4.3-11.0 Blood erythrocytes automated count (number/volume) 3.54 10*6/uL 4.35-5.85 Venous blood hemoglobin measurement (mass/volume) 11.0 g/dL 11.5-16.0 Blood hematocrit (volume fraction) 34 % 35-52 Automated erythrocyte mean corpuscular volume 97 [foz_us] 80-99 Automated erythrocyte mean corpuscular hemoglobin (mass per erythrocyte) 31 pg 25-34 Automated erythrocyte mean corpuscular hemoglobin concentration measurement (mass/volume) 32 g/dL 32-36 Automated erythrocyte distribution width ratio 15.4 % 10.0- 14.5 Automated blood platelet count (count/volume) 171 10*3/uL 130-400 Automated blood platelet mean volume measurement 10.2 [foz_us] 7.4-10.4 Automated blood neutrophils/100 leukocytes 72 % 42-75 Automated blood lymphocytes/100 leukocytes 17 % 12-44 Blood monocytes/100 leukocytes 10 % 0-12 Automated blood eosinophils/100 leukocytes 1 % 0-10 Automated blood basophils/100 leukocytes 0 % 0-10 Blood neutrophils automated count (number/volume) 5.1 10*3 1.8-7.8 Blood lymphocytes automated count (number/volume) 1.2 10*3 1.0-4.0 Blood monocytes automated count (number/volume) 0.7 10*3 0.0- 1.0 Automated eosinophil count 0.1 10*3/uL 0.0-0.3 Automated blood basophil count (count/volume) 0.0 10*3/uL 0.0-0.1 Comprehensive metabolic panel - 08/10/18 17:15 Serum or plasma sodium measurement (moles/volume) 135 mmol/L 135-145 Serum or plasma potassium measurement (moles/volume) 4.3 mmol/L 3.6-5.0 Serum or plasma chloride measurement (moles/volume) 92 mmol/L 98-107 Carbon dioxide 30 mmol/L 21-32 Serum or plasma anion gap determination (moles/volume) 13 mmol/L 5-14 Serum or plasma urea nitrogen measurement (mass/volume) 23 mg/dL 7-18 Serum or plasma creatinine measurement (mass/volume) 5.11 mg/dL 0.60-1.30 Serum or plasma urea nitrogen/creatinine mass ratio 5 NRG Serum or plasma creatinine measurement with calculation of estimated glomerular filtration rate 8 NRG Serum or plasma glucose measurement (mass/volume) 102 mg/dL 70-105 Serum or plasma calcium measurement (mass/volume) 9.9 mg/dL 8.5-10.1 Serum or plasma total bilirubin measurement (mass/volume) 0.5 mg/dL 0.1-1.0 Serum or plasma alkaline phosphatase measurement (enzymatic activity/volume) 86 U/L 40-136 Serum or plasma aspartate aminotransferase measurement (enzymatic activity/volume) 18 U/L 5-34 Serum or plasma alanine aminotransferase measurement (enzymatic activity/volume) 13 U/L 0-55 Serum or plasma protein measurement (mass/volume) 6.4 g/dL 6.4-8.2 Serum or plasma albumin measurement (mass/volume) 3.9 g/dL 3.2-4.5 CALCIUM CORRECTED 10.0 mg/dL 8.5-10.1 Magnesium - 08/10/18 17:15 Magnesium 2.3 mg/dL 1.8-2.4 Serum or plasma lithium measurement (moles/volume) - 08/10/18 17:15 BNP level 3818.8 pg/mL <100.0 Serum or plasma troponin i.cardiac measurement (mass/volume) - 08/10/18 17:15 Serum or plasma troponin i.cardiac measurement (mass/volume) 0.030 ng/mL <0.028 Encounters ACCT No. Visit Date/Time Discharge Status Pt. Type Provider Facility Loc./Unit Complaint [id number] 08/10/2018 17:09:00 08/10/2018 22:30:00 DIS Emergency KURT LUTHER [facility] ER SOA [id number] 08/08/2018 13:10:00 08/08/2018 15:37:00 DIS Emergency ENRICO LINDSEY MD [facility] ER N/V [id number] 04/13/2018 15:23:00 04/13/2018 18:00:00 DIS Emergency ANDREW SIERRA APRN [facility] ER WEAKNESS [id number] 05/29/2017 18:06:00 05/29/2017 23:10:00 DIS Emergency SANDRA MASON MD [facility] ER SOA [id number] 04/20/2017 16:22:00 04/20/2017 18:36:00 DIS Emergency ANDREW SIERRA APRN [facility] ER BLEEDING,NEED STITCHES [id number] 04/12/2017 12:28:00 04/12/2017 14:55:00 DIS Emergency ENRICO LINDSEY MD [facility] ER SOA [id number] 04/01/2017 11:16:00 04/01/2017 23:59:59 [facility] Outpatient NALLELY SOLIMAN MD [facility] D64.9 [id number] 03/07/2017 20:03:00 03/08/2017 00:39:00 DIS Emergency ENRICO LINDSEY MD [facility] ER BACK PAIN [id number] 03/03/2017 15:45:00 03/03/2017 23:59:59 CLS Preadmit Ranjit ARORA MD [facility] CARD I48.91 AF [id number] 12/05/2016 13:00:00 12/09/2016 13:05:00 DIS Inpatient DIOGO BAER, ARLEEN Murillo [facility] 4TH FX L DISTAL RADIUS, FX L PELVIS [id number] 12/01/2016 11:38:00 12/01/2016 23:59:59 CLS Emergency SANDRA MASON MD [facility] ER POSSIBLE SEIZURES [id number] 10/25/2016 08:07:00 10/25/2016 10:40:00 DIS Emergency ROSALIA BAER, ENRICO Dai [facility] ER DIALYSIS PORT BLEEDING [id number] 08/06/2016 09:45:00 08/06/2016 23:59:59 CLS Preadmit Ranjit ARORA MD [facility] CARD AF I48.91 [id number] 07/01/2016 12:15:00 07/01/2016 23:59:59 CLS Preadmit Ranjit ARORA MD [facility] CARD AF [id number] 04/01/2016 11:50:00 06/30/2016 00:01:00 DIS Outpatient Ranjit ARORA MD [facility] CARD AF [id number] 02/12/2016 08:56:00 02/12/2016 11:15:00 DIS Emergency SANDRA MASON MD [facility] ER CHEST PAIN [id number] 02/03/2016 19:50:00 02/04/2016 18:35:00 DIS Inpatient JOURDAN BAER, NALLELY Hatch [facility] ICU NEW ONSET ATRIAL FIB W/ RVR, ESRD ON DIALYSIS,HEAR
--- NOTE | 2018-09-07 17:58 | ED Lower Extremity ---
General Chief Complaint: Lower Extremity Stated Complaint: LEG SWELLING Nursing Triage Note: Pt sent to ED from dialysis for L leg swelling. Pt reports 10 pounds were taken off at dialysis today. Pt reports being hospitalized recently for pneumonia and now is at [facility] for rehab. Pt L leg swollen and toes purple. Pt has slow cap refill in toes. Nursing Sepsis Screen: No Definite Risk Source: patient, caregiver Exam Limitations: no limitations (SANDRA MASON MD) History of Present Illness Date Seen by Provider: Sep 07, 2018 Time Seen by Provider: 17:25 Initial Comments Here with report of left leg swelling. Apparently he has had recent h ospitalization for pneumonia and was in the hospital for 19 days. She is on Eliquis. She does have end-stage renal disease and is on dialysis. She is getting daily dialysis currently because of fluid volume overload. He did remove 10 pounds of fluid today. The dialysis doctor is concerned about blood clots because of the one leg swelling. She is actually swelling a little on both legs but left is definitely greater than right. Does have history of left leg injury and knee replacement as well as repair after fracture. Denies fever or chills. Denies shortness of breath or breathing problems. Onset: other (last several days) Severity: mild Pain/Injury Location: left leg Method of Injury: unknown Modifying Factors: Improves With Rest (SANDRA MASON MD) Allergies and Home Medications Allergies Coded Allergies: povidone-iodine (Verified Allergy, Mild, 12/05/16) ranitidine (Verified Allergy, Mild, 12/05/16) soap (Verified Allergy, Mild, 12/05/16) tetracycline (Verified Allergy, Mild, 12/05/16) Penicillins (Verified Allergy, Unknown, 12/05/16) Sulfa (Sulfonamide Antibiotics) (Verified Allergy, Unknown, 12/05/16) Uncoded Allergies: NARCOTIC (Allergy, Mild, 12/01/16) Home Medications Cefdinir 300 Mg Capsule, 300 MG PO UD Take 1 capsule after dialysis on and Wed Prescribed by: SANDRA MASON on 05/29/17 2300 Cinacalcet HCl 90 Mg Tablet, 90 MG PO BID, (Reported) Metoprolol Tartrate 25 Mg Tablet, 25 MG PO DAILY, (Reported) Ondansetron 4 Mg Tab.rapdis, 4 MG PO Q6H PRN for NAUSEA/VOMITING-1ST LINE Prescribed by: ENRICO LINDSEY on 08/08/18 1457 Polyethylene Glycol 3350 17 Gm Powd.pack, 17 GM PO BID Prescribed by: ANDREW SIERRA on 04/13/18 1718 Sevelamer Carbonate 800 Mg Tablet, 1,600 MG PO TIDWM, (Reported) TAKES 2 (800 MG) TABLETS Patient Home Medication List Home Medication List Reviewed: Yes (SANDRA MASON MD) Review of Systems Constitutional: see HPI; No chills, No fever EENTM: no symptoms reported Respiratory: no symptoms reported Cardiovascular: edema; No palpitations Gastrointestinal: No abdominal pain, No nausea, No vomiting Musculoskeletal: see HPI, joint swelling; No muscle weakness Skin: change in color; No lesions Psychiatric/Neurological: No Symptoms Reported (SANDRA MASON MD) Past Joyonsm-Dlufyz-Rbysck Hx Past Med/Social Hx: Reviewed Nursing Past Med/Soc Hx (SANDRA MASON MD) Patient Social History Alcohol Use: Denies Use Recreational Drug Use: No Smoking Status: Unknown if Ever Smoked 2nd Hand Smoke Exposure: No Recent Foreign Travel: No Contact w/Someone Who Travel: No Recent Infectious Disease Expo: No Recent Hopitalizations: No (SANDRA MASON MD) Immunizations Up To Date Tetanus Booster (TDap): Unknown Date of Pneumonia Vaccine: Jan 04, 2012 Date of Influenza Vaccine: Jan 09, 2017 (SANDRA MASON MD) Seasonal Allergies Seasonal Allergies: No (SANDRA MASON MD) Past Medical History Surgeries: Yes (DIALYSIS GRAFT/SHUNT RIGHT UPPER ARM; RIGHT KNEE TUMOR REMOVAL ) Appendectomy, Dialysis, Hysterectomy, Orthopedic (left knee 2), Tonsillectomy, Vascular Surgery Respiratory: No (fluid overload) Currently Using CPAP: No Currently Using BIPAP: No Cardiac: Yes Atrial Fibrillation, Heart Murmur, High Cholesterol, Hypertension, Irregular Heartbeat Neurological: No Reproductive Disorders: No Genitourinary: Yes Renal Failure, Dialysis Gastrointestinal: No Musculoskeletal: Yes (LEFT WRIST FRACTURE) Endocrine: No HEENT: No Cancer: No Psychosocial: Yes Integumentary: No Blood Disorders: No Adverse Reaction/Blood Tranf: No (SANDRA MASON MD) Family Medical History Reviewed Nursing Family Hx (SANDRA MASON MD) Patient reports no known family medical history. No Pertinent Family Hx (SANDRA MASON MD) Physical Exam Vital Signs Vital Signs - First Documented 09/07/18 16:52 Temp 97.5 Pulse 54 Resp 17 B/P (MAP) 141/57 (85) Pulse Ox 95 O2 Delivery Room Air (SEGUN CORDOVA MD) Vital Signs Capillary Refill : Greater Than 3 Seconds (SANDRA MASON MD) Height, Weight, BMI Height: 5'5.00" Weight: 120lbs. 0.0oz. 54.911770ez; 20.0 BMI Method:Stated General Appearance: WD/WN, no apparent distress HEENT: PERRL/EOMI, pharynx normal Neck: full range of motion, supple Cardiovascular: regular rate, rhythm, no murmur Respiratory: lungs clear, normal breath sounds Gastrointestinal: non tender, soft Legs: left leg swelling; bilateral leg other (2+ edema to the left leg and foot without pain. Edema extends up to the region just below the knee. Right leg with 1+ edema. It sounds pedis pulses equal and strong bilaterally. Both feet are somewhat cold. Refill less than 3 seconds to both feet.) Neurologic/Psychiatric: oriented x 3 Skin: warm/dry, cool (feet bilaterally) (SANDRA MASON MD) Progress/Results/Core Measures Results/Orders Lab Results Laboratory Tests Test 09/07/18 18:15 Range/Units White Blood Count 6.2 4.3-11.0 10^3/uL Red Blood Count 3.23 L 4.35-5.85 10^6/uL Hemoglobin 10.1 L 11.5-16.0 G/DL Hematocrit 32 L 35-52 % Mean Corpuscular Volume 99 80-99 FL Mean Corpuscular Hemoglobin 31 25-34 PG Mean Corpuscular Hemoglobin Concent 32 32-36 G/DL Red Cell Distribution Width 17.7 H 10.0-14.5 % Platelet Count 187 130-400 10^3/uL Mean Platelet Volume 10.4 7.4-10.4 FL Neutrophils (%) (Auto) 75 42-75 % Lymphocytes (%) (Auto) 14 12-44 % Monocytes (%) (Auto) 9 0-12 % Eosinophils (%) (Auto) 2 0-10 % Basophils (%) (Auto) 0 0-10 % Neutrophils # (Auto) 4.6 1.8-7.8 X 10^3 Lymphocytes # (Auto) 0.9 L 1.0-4.0 X 10^3 Monocytes # (Auto) 0.6 0.0-1.0 X 10^3 Eosinophils # (Auto) 0.1 0.0-0.3 10^3/uL Basophils # (Auto) 0.0 0.0-0.1 10^3/uL Sodium Level 143 135-145 MMOL/L Potassium Level 4.0 3.6-5.0 MMOL/L Chloride Level 94 L 98-107 MMOL/L Carbon Dioxide Level 31 21-32 MMOL/L Anion Gap 18 H 5-14 MMOL/L Blood Urea Nitrogen 22 H 7-18 MG/DL Creatinine 3.73 H 0.60-1.30 MG/DL Estimat Glomerular Filtration Rate 12 BUN/Creatinine Ratio 6 Glucose Level 95 70-105 MG/DL Calcium Level 9.3 8.5-10.1 MG/DL Corrected Calcium 9.4 8.5-10.1 MG/DL Total Bilirubin 0.4 0.1-1.0 MG/DL Aspartate Amino Transf (AST/SGOT) 11 5-34 U/L Alanine Aminotransferase (ALT/SGPT) 9 0-55 U/L Alkaline Phosphatase 97 40-136 U/L C-Reactive Protein High Sensitivity 1.11 H 0.00-0.50 MG/DL Total Protein 6.7 6.4-8.2 GM/DL Albumin 3.9 3.2-4.5 GM/DL (SEGUN CORDOVA MD) Vital Signs/I&O 09/07/18 16:52 Temp 97.5 Pulse 54 Resp 17 B/P (MAP) 141/57 (85) Pulse Ox 95 O2 Delivery Room Air (SEGUN CORDOVA MD) Blood Pressure Mean: 85 Progress Progress Note : Progress Note Seen and evaluated. Ultrasound left lower extremity ordered. Labs ordered including CBC, CMP and CRP. Monitor patient (SANDAR MASON MD) Progress Note : Time: 18:56 Progress Note Care of this patient was assumed from Dr. Mason at shift change. Ultrasound revealed no DVT. Labs were unremarkable for a dialysis patient. (SEGUN CORDOVA MD) Diagnostic Imaging Diagonstic Imaging: Ultrasound Plain Films/CT/US/NM/MRI: leg Comments Ultrasound report reviewed. See report below: NAME: DARNELL FRANKLIN MED REC#: [id number] PT STATUS: REG ER : 1940 PHYSICIAN: SANDRA MASON MD ADMIT DATE: 09/07/18/ER Draft Date of Exam:09/07/18 US VENOUS LOWER EXT LT PROCEDURE: US left lower extremity venous. TECHNIQUE: Multiple real-time grayscale images were obtained over the left lower extremity in various projections. Additional duplex Doppler and color Doppler images were also obtained. INDICATION: Swelling. FINDINGS: The femoropopliteal deep venous system throughout the left leg is widely patent. No deep or superficial thrombus. There is subcutaneous edema about the leg but no discrete fluid collection or mass demonstrated. Venous compressibility, color flow, and pulsatility normal. IMPRESSION: Subcutaneous edema, however, negative for left lower extremity venous thrombus. Dictated on workstation # [id number] Dict: 09/07/18 1825 Trans: 09/07/18 1831 [facility] [id number] Interpreted by: DIANN BERNAL (ESGUN CORDOVA MD) Departure Impression Primary Impression: Lower extremity edema Additional Impression: End stage renal failure on dialysis Disposition: 01 HOME, SELF-CARE Condition: Stable Departure-Patient Inst. Decision time for Depature: 18:20 (SEGUN CORDOVA MD) Referrals: NALLELY SOLIMAN MD (PCP/Family) Primary Care Physician Patient Instructions: Dependent Edema (DC) Add. Discharge Instructions: Continue treatment plan as previously directed. Elevate legs as often as possible to reduce swelling. Follow-up with your primary care provider or buncher machine to further address swelling. All discharge instructions reviewed with patient and/or family. Voiced understanding. SANDRA MASON MD Sep 07, 2018 17:58 SEGUN CORDOVA MD Sep 07, 2018 18:30
[2018-09-07 18:23] LABS: BASOPHILS % (AUTO) 0 % (0-10); EOSINOPHILS # (AUTO) 0.1 10^3/uL (0.0-0.3); EOSINOPHILS % (AUTO) 2 % (0-10); HEMATOCRIT 32 % (35-52); HEMOGLOBIN 10.1 G/DL (11.5-16.0); LYMPHOCYTES # (AUTO) 0.9 X 10^3 (1.0-4.0); LYMPHOCYTES % (AUTO) 14 % (12-44); MEAN CORPUSCULAR HEMOGLOBIN 31 PG (25-34); MEAN CORPUSCULAR HGB CONC 32 G/DL (32-36); MEAN CORPUSCULAR VOLUME 99 FL (80-99); MEAN PLATELET VOLUME 10.4 FL (7.4-10.4); MONOCYTES # (AUTO) 0.6 X 10^3 (0.0-1.0); MONOCYTES % (AUTO) 9 % (0-12); NEUTROPHILS # (AUTO) 4.6 X 10^3 (1.8-7.8); NEUTROPHILS % (AUTO) 75 % (42-75); PLATELET COUNT 187 10^3/uL (130-400); RED CELL DISTRIBUTION WIDTH 17.7 % (10.0-14.5); WHITE BLOOD COUNT 6.2 10^3/uL (4.3-11.0)
--- NOTE | 2018-09-07 18:32 | Diagnostic Imaging Report ---
PROCEDURE: US left lower extremity venous. TECHNIQUE: Multiple real-time grayscale images were obtained over the left lower extremity in various projections. Additional duplex Doppler and color Doppler images were also obtained. INDICATION: Swelling. FINDINGS: The femoropopliteal deep venous system throughout the left leg is widely patent. No deep or superficial thrombus. There is subcutaneous edema about the leg but no discrete fluid collection or mass demonstrated. Venous compressibility, color flow, and pulsatility normal. IMPRESSION: Subcutaneous edema, however, negative for left lower extremity venous thrombus. Dictated by: Dictated on workstation # [id number]
[2018-09-07 18:52] LABS: ALBUMIN 3.9 GM/DL (3.2-4.5); BILIRUBIN,TOTAL 0.4 MG/DL (0.1-1.0); CALCIUM 9.3 MG/DL (8.5-10.1); CREATININE SERUM 3.73 MG/DL (0.60-1.30); TOTAL PROTEIN 6.7 GM/DL (6.4-8.2)
[2018-09-07 19:07] VITALS: BP 105/83
== END 2018-09-07 19:09 | disposition home or self-care (01) ==
LOC: EDUNIT# 16:28 → ER 16:29
DX: I12.0 Hypertensive chronic kidney disease with stage 5 chronic kidney disease or end stage renal disease (principal); N18.6 End stage renal disease; R60.0 Localized edema; I48.91 Unspecified atrial fibrillation; E78.00 Pure hypercholesterolemia, unspecified; Z87.01 Personal history of pneumonia (recurrent); Z79.01 Long term (current) 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s; Z99.2 Dependence on renal dialysis; Z88.1 Allergy status to other antibiotic agents; Z88.0 Allergy status to penicillin; Z88.2 Allergy status to sulfonamides; Z88.8 Allergy status to other drugs, medicaments and biological substances; Z90.710 Acquired absence of both cervix and uterus; Z90.49 Acquired absence of other specified parts of digestive tract; Z90.89 Acquired absence of other organs
CPT/HCPCS: 36415; 80053; 85025; 86141

== ENCOUNTER 2018-10-10 11:29 | Emergency (ER) | payer MEDICARE, MEDICAID ==
[~2018-10-10] VITALS: Ht 165.1 cm; Wt 56.7 kg
--- OUTSIDE RECORDS SUMMARY | 2018-10-10 11:34 | XMS REPORT | Clinical Summary ---
Author Author [facility] Organization [facility] Address Unknown Phone Unavailable Care Team Providers Care Retail Sales Director Name Role Phone Aric Escoto MD PCP Martine Blanca MD Unavailable Unavailable Source Comments Some departments are not documenting in the electronic medical record. If you d o not see the information that you expected, contact Release of Information in [facility] [employer] Information Management department at [phone] for further assistan ce in locating additional records.[facility] Allergies Comments Active Allergy Reactions Severity [...] Use Types Packs/Day Years Used Never Smoker Drinks/Week oz/Week Comments Alcohol Use No Sex Assigned at Date Recorded Not on file Industry Job Start Date Occupation Not on file Not on file Not on file Travel End Travel History Travel Start No recent travel history available. Last Filed Vital Signs Reading Time Taken Comments Vital Sign 148/76 10/21/2012 8:46 AM CDT R arm fistula Blood Pressure 84 10/21/2012 8:46 AM CDT Pulse - - Temperature - - Respiratory Rate - - Oxygen Saturation - - Inhaled Oxygen Concentration 54.4 kg (120 lb) 10/21/2012 11:12 AM CDT Weight 165.1 cm (5' 5") 10/21/2012 11:12 AM CDT Height 19.97 10/21/2012 11:12 AM CDT Body Mass Index Plan of Treatment Health Maintenance Due Date [...] MEDICAID Present [facility]/HO xxxxxxxxx 2013- DE Present HEALTH/SNF /SKILLED NURSING Dulce Bashir A Transplant Self 1940 [address] (Home) [address] [address] (Work) 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
--- NOTE | 2018-10-10 11:54 | ED Upper Extremity ---
General Stated Complaint: ARM SWELLING Source: patient Exam Limitations: no limitations History of Present Illness Date Seen by Provider: Oct 10, 2018 Time Seen by Provider: 11:52 Initial Comments This frail hemodialysis patient presents to ER with right arm swelling. This initially began a bit after her last hemodialysis session on Wednesday, 2 days ago. Got quite a bit worse overnight. Minimal pain. She receives hemodialysis Wednesday. Onset: just prior to arrival Severity: moderate Pain/Injury Location: right arm Method of Injury: unknown Allergies and Home Medications Allergies Coded Allergies: povidone-iodine (Verified Allergy, Mild, 12/05/16) ranitidine (Verified Allergy, Mild, 12/05/16) soap (Verified Allergy, Mild, 12/05/16) tetracycline (Verified Allergy, Mild, 12/05/16) Penicillins (Verified Allergy, Unknown, 12/05/16) Sulfa (Sulfonamide Antibiotics) (Verified Allergy, Unknown, 12/05/16) Uncoded Allergies: NARCOTIC (Allergy, Mild, 12/01/16) Home Medications Cefdinir 300 Mg Capsule, 300 MG PO UD Take 1 capsule after dialysis on and Wed Prescribed by: SANDRA MASON on 05/29/17 2300 Cinacalcet HCl 90 Mg Tablet, 90 MG PO BID, (Reported) Metoprolol Tartrate 25 Mg Tablet, 25 MG PO DAILY, (Reported) Ondansetron 4 Mg Tab.rapdis, 4 MG PO Q6H PRN for NAUSEA/VOMITING-1ST LINE Prescribed by: ENRICO LINDSEY on 08/08/18 1457 Polyethylene Glycol 3350 17 Gm Powd.pack, 17 GM PO BID Prescribed by: ANDREW SIERRA on 04/13/18 1718 Sevelamer Carbonate 800 Mg Tablet, 1,600 MG PO TIDWM, (Reported) TAKES 2 (800 MG) TABLETS Patient Home Medication List Home Medication List Reviewed: Yes Review of Systems Constitutional: see HPI; No fever EENTM: see HPI Respiratory: no symptoms reported; No short of breath Cardiovascular: no symptoms reported; No chest pain Genitourinary: no symptoms reported Musculoskeletal: no symptoms reported Skin: no symptoms reported Psychiatric/Neurological: No Symptoms Reported Past Vpodyof-Tgqjkv-Acmnva Hx Patient Social History 2nd Hand Smoke Exposure: No Recent Hopitalizations: No Immunizations Up To Date Tetanus Booster (TDap): Unknown Date of Pneumonia Vaccine: Jan 04, 2012 Date of Influenza Vaccine: Jan 09, 2017 Seasonal Allergies Seasonal Allergies: No Past Medical History Surgeries: Yes (DIALYSIS GRAFT/SHUNT RIGHT UPPER ARM; RIGHT KNEE TUMOR REMOVAL ) Appendectomy, Dialysis, Hysterectomy, Orthopedic, Tonsillectomy, Vascular Surgery Respiratory: No (fluid overload) Currently Using CPAP: No Currently Using BIPAP: No Cardiac: Yes Atrial Fibrillation, Heart Murmur, High Cholesterol, Hypertension, Irregular Heartbeat Neurological: No Reproductive Disorders: No Genitourinary: Yes Renal Failure, Dialysis Gastrointestinal: No Musculoskeletal: Yes (LEFT WRIST FRACTURE) Endocrine: No HEENT: No Cancer: No Psychosocial: Yes Integumentary: No Blood Disorders: No Adverse Reaction/Blood Tranf: No Family Medical History Patient reports no known family medical history. No Pertinent Family Hx Physical Exam Vital Signs Vital Signs - First Documented 10/10/18 11:40 Temp 98.0 Pulse 84 Resp 18 B/P (MAP) 167/72 (103) Pulse Ox 93 O2 Delivery Room Air Capillary Refill : Height, Weight, BMI Height: 5'5.00" Weight: 120lbs. 0.0oz. 54.117076ew; 20.0 BMI Method:Stated General Appearance: WD/WN, no apparent distress Respiratory: no respiratory distress, no accessory muscle use Elbow/Forearm: ecchymosis (AV fistula in the anterior upper right arm. There is no erythema there is some ecchymosis around this. The swelling is at the medial aspect of the elbow and at the wrist.) Wrist: Yes normal inspection, Yes non-tender, Yes swelling Hand: normal inspection, non-tender, swelling Neurologic/Psychiatric: alert, normal mood/affect, oriented x 3 Skin: normal color, warm/dry Progress/Results/Core Measures Results/Orders My Orders Orders - ANDREW SIERRA APRN Us Venous Upper Ext Rt (10/10/18 11:48) Vital Signs/I&O 10/10/18 11:40 Temp 98.0 Pulse 84 Resp 18 B/P (MAP) 167/72 (103) Pulse Ox 93 O2 Delivery Room Air Diagnostic Imaging Diagonstic Imaging: Ultrasound Comments NAME: DARNELL FRANKLIN MED REC#: [id number] PT STATUS: REG ER : 1940 PHYSICIAN: ANDREW SIERRA APRN ADMIT DATE: 10/10/18/ER Draft Date of Exam:10/10/18 US VENOUS UPPER EXT RT Indication: PAIN and swelling of the right upper extremity. Patient has a right upper extremity dialysis fistula which appears to be patent. The basilic and cephalic veins as well as brachial veins are patent. Radial and ulnar veins are patent. No thrombus is seen. There is moderate amount of subjacent edema. Impression: Limited study. Patient's dialysis fistula is patent. The cephalic, basilic, brachial as well as ulnoradial veins appear to be patent. No thrombus is seen. Dictated on workstation # [id number] Dict: 10/10/18 1253 Trans: 10/10/18 1258 [facility] [id number] Interpreted by: IVETT KOROMA MD Electronically signed by: Departure Impression Primary Impression: ESRD on dialysis Additional Impression: Arm edema Disposition: 01 HOME, SELF-CARE Condition: Stable Departure-Patient Inst. Decision time for Depature: 13:00 Referrals: NALLELY SOLIMAN MD (PCP/Family) Primary Care Physician Patient Instructions: NO INSTRUCTIONS GIVEN Add. Discharge Instructions: 1. Return to ER for any concerns 2. Antibiotic as directed. Call your doctor today to make an appointment to be seen for follow-up. Scripts Cephalexin (Keflex) 500 Mg Capsule 500 MG PO DAILY, #5 CAP Prov: ANDREW SIERRA APRN 10/10/18 ANDREW SIERRA APRN Oct 10, 2018 11:54
--- NOTE | 2018-10-10 12:59 | Diagnostic Imaging Report ---
Indication: PAIN and swelling of the right upper extremity. Patient has a right upper extremity dialysis fistula which appears to be patent. The basilic and cephalic veins as well as brachial veins are patent. Radial and ulnar veins are patent. No thrombus is seen. There is moderate amount of subjacent edema. Impression: Limited study. Patient's dialysis fistula is patent. The cephalic, basilic, brachial as well as ulnoradial veins appear to be patent. No thrombus is seen. Dictated by: Dictated on workstation # [id number]
[2018-10-10] MEDS ORDERED: CEPH-507 PO (13:03)
[2018-10-10 13:12] VITALS: BP 165/77
== END 2018-10-10 13:12 | disposition home or self-care (01) ==
LOC: EDUNIT# 11:29 → ER 11:29
DX: I13.11 Hypertensive heart and chronic kidney disease without heart failure, with stage 5 chronic kidney disease, or end stage renal disease (principal); N18.6 End stage renal disease; R60.0 Localized edema; E78.00 Pure hypercholesterolemia, unspecified; I48.91 Unspecified atrial fibrillation; M79.81 Nontraumatic hematoma of soft tissue; Z99.2 Dependence on renal dialysis; Z88.0 Allergy status to penicillin; Z88.2 Allergy status to sulfonamides; Z88.1 Allergy status to other antibiotic agents; Z91.041 Radiographic dye allergy status; Z88.5 Allergy status to narcotic agent; Z90.49 Acquired absence of other specified parts of digestive tract; Z90.710 Acquired absence of both cervix and uterus; Z90.89 Acquired absence of other organs

== ENCOUNTER 2018-11-04 18:01 | Emergency (ER) | payer MEDICARE, MEDICAID ==
[~2018-11-04] VITALS: Ht 165.1 cm; Wt 54.4 kg
[~2018-11-04 18:01] MED LIST changes: +CEPH-507 PO; -OMEP20CA12 PO; +OMEP20CA13 PO
[2018-11-04] MEDS ORDERED: RT-ALBUTEROL/IPRATROPIUM 3 ML (DUONEB) VIAL INH ONE (18:15)
--- NOTE | 2018-11-04 18:18 | ED Respiratory ---
General Chief Complaint: Respiratory Problems Stated Complaint: SOA Source: patient, EMS Exam Limitations: no limitations History of Present Illness Date Seen by Provider: Nov 04, 2018 Time Seen by Provider: 18:03 Initial Comments The patient presents to ER by EMS from home with chief complaint for the past week she's been having shortness of breath. She denies any chest pain. She doesn't nausea and vomiting earlier today. Not having any nausea right now. She denies fevers chills or productive cough. She says recently she was told she has COPD and given a breathing treatment at home but she has not been using it for the past week. She has not seen her doctor at [facility] [place], Dr. Soliman. She sees Dr. Perry for nephrology. Is not having any swelling but she does feel little distended in her middle. She says she goes to dialysis on Wednesday and Wednesday and for the past 2 or 3 sessions she's told them they need to take off more fluids but she does not feel that they are taking off enough. EMS reports she is afebrile and without wheezing and has normal oxygen sats on room air in the mid 90s. She does have a history of atrial fibrillation. She denies orthopnea or history of heart failure. Allergies and Home Medications Allergies Coded Allergies: povidone-iodine (Verified Allergy, Mild, 12/05/16) ranitidine (Verified Allergy, Mild, 12/05/16) soap (Verified Allergy, Mild, 12/05/16) tetracycline (Verified Allergy, Mild, 12/05/16) Penicillins (Verified Allergy, Unknown, 12/05/16) Sulfa (Sulfonamide Antibiotics) (Verified Allergy, Unknown, 12/05/16) Uncoded Allergies: NARCOTIC (Allergy, Mild, 12/01/16) Home Medications Cefdinir 300 Mg Capsule, 300 MG PO UD Take 1 capsule after dialysis on and Wed Prescribed by: SANDRA MASON on 05/29/17 2300 Cephalexin 500 Mg Capsule, 500 MG PO DAILY Prescribed by: ANDREW SIERRA on 10/10/18 1303 Cinacalcet HCl 90 Mg Tablet, 90 MG PO BID, (Reported) Metoprolol Tartrate 25 Mg Tablet, 25 MG PO DAILY, (Reported) Ondansetron 4 Mg Tab.rapdis, 4 MG PO Q6H PRN for NAUSEA/VOMITING-1ST LINE Prescribed by: ENRICO LINDSEY on 08/08/18 1457 Polyethylene Glycol 3350 17 Gm Powd.pack, 17 GM PO BID Prescribed by: ANDREW SIERRA on 04/13/18 1718 Sevelamer Carbonate 800 Mg Tablet, 1,600 MG PO TIDWM, (Reported) TAKES 2 (800 MG) TABLETS Patient Home Medication List Home Medication List Reviewed: Yes Review of Systems Review of Systems Constitutional: No chills, No diaphoresis EENTM: No ear discharge, No ear pain Respiratory: No cough, No phlegm; short of breath; No wheezing Cardiovascular: No chest pain, No edema, No Hx of Intervention, No palpitations, No syncope Gastrointestinal: No abdominal pain, No constipation, No diarrhea; nausea, vomiting Genitourinary: No discharge, No dysuria Musculoskeletal: No back pain, No joint pain Skin: No pruritus, No rash Past Ojbvdzh-Sfwqca-Ttdyqe Hx Patient Social History Alcohol Use: Denies Use Recreational Drug Use: No Smoking Status: Never a Smoker 2nd Hand Smoke Exposure: No Recent Hopitalizations: No Immunizations Up To Date Tetanus Booster (TDap): Unknown Date of Pneumonia Vaccine: Jan 04, 2012 Date of Influenza Vaccine: Jan 09, 2017 Seasonal Allergies Seasonal Allergies: No Past Medical History Surgeries: Yes (DIALYSIS GRAFT/SHUNT RIGHT UPPER ARM; RIGHT KNEE TUMOR REMOVAL ) Appendectomy, Dialysis, Hysterectomy, Orthopedic, Tonsillectomy, Vascular Surgery Respiratory: No (fluid overload) Currently Using CPAP: No Currently Using BIPAP: No Cardiac: Yes Atrial Fibrillation, Heart Murmur, High Cholesterol, Hypertension, Irregular Heartbeat Neurological: No Reproductive Disorders: No Genitourinary: Yes Renal Failure, Dialysis Gastrointestinal: No Musculoskeletal: Yes (LEFT WRIST FRACTURE) Endocrine: No HEENT: No Cancer: No Psychosocial: Yes Integumentary: No Blood Disorders: No Adverse Reaction/Blood Tranf: No Family Medical History Patient reports no known family medical history. No Pertinent Family Hx Physical Exam Vital Signs - First Documented 11/04/18 11/04/18 18:02 18:22 Temp 98.8 Pulse 78 Resp 20 B/P (MAP) 125/66 (85) Pulse Ox 92 O2 Delivery Nasal Cannula O2 Flow Rate 2.00 Capillary Refill : Height: 5'5.00" Weight: 125lbs. 0.0oz. [id number]; 20.0 BMI Method:Stated General Appearance: WD/WN, no apparent distress Eyes: Bilateral Eye Normal Inspection, Bilateral Eye PERRL, Bilateral Eye EOMI HEENT: PERRL/EOMI, normal ENT inspection, pharynx normal Neck: full range of motion, supple, normal inspection Respiratory: lungs clear, normal breath sounds, no respiratory distress, no accessory muscle use Cardiovascular: normal peripheral pulses, regular rate, rhythm, no edema, systolic murmur Gastrointestinal: normal bowel sounds, non tender, soft, no organomegaly Extremities: normal range of motion, non-tender, normal inspection, no pedal edema, no calf tenderness, normal capillary refill Neurologic/Psychiatric: alert, normal mood/affect, oriented x 3 Skin: normal color, warm/dry Progress/Results/Core Measures Suspected Sepsis SIRS Temperature: Pulse: Respiratory Rate: Laboratory Tests 11/04/18 18:50: White Blood Count 6.7 Blood Pressure / Mean: Laboratory Tests 11/04/18 18:50: Creatinine 4.36H, Platelet Count 273, Total Bilirubin 0.3 Results/Orders Lab Results Laboratory Tests Test 11/04/18 18:50 11/04/18 18:51 11/04/18 19:10 Range/Units White Blood Count 6.7 4.3-11.0 10^3/uL Red Blood Count 3.42 L 4.35-5.85 10^6/uL Hemoglobin 9.9 L 11.5-16.0 G/DL Hematocrit 32 L 35-52 % Mean Corpuscular Volume 92 80-99 FL Mean Corpuscular Hemoglobin 29 25-34 PG Mean Corpuscular Hemoglobin Concent 31 L 32-36 G/DL Red Cell Distribution Width 15.8 H 10.0-14.5 % Platelet Count 273 130-400 10^3/uL Mean Platelet Volume 9.9 7.4-10.4 FL Neutrophils (%) (Auto) 74 42-75 % Lymphocytes (%) (Auto) 15 12-44 % Monocytes (%) (Auto) 10 0-12 % Eosinophils (%) (Auto) 1 0-10 % Basophils (%) (Auto) 0 0-10 % Neutrophils # (Auto) 5.0 1.8-7.8 X 10^3 Lymphocytes # (Auto) 1.0 1.0-4.0 X 10^3 Monocytes # (Auto) 0.7 0.0-1.0 X 10^3 Eosinophils # (Auto) 0.1 0.0-0.3 10^3/uL Basophils # (Auto) 0.0 0.0-0.1 10^3/uL Sodium Level 141 135-145 MMOL/L Potassium Level 3.9 3.6-5.0 MMOL/L Chloride Level 97 L 98-107 MMOL/L Carbon Dioxide Level 31 21-32 MMOL/L Anion Gap 13 5-14 MMOL/L Blood Urea Nitrogen 23 H 7-18 MG/DL Creatinine 4.36 H 0.60-1.30 MG/DL Estimat Glomerular Filtration Rate 10 BUN/Creatinine Ratio 5 Glucose Level 108 H 70-105 MG/DL Calcium Level 8.6 8.5-10.1 MG/DL Corrected Calcium 9.2 8.5-10.1 MG/DL Magnesium Level 2.4 1.8-2.4 MG/DL Total Bilirubin 0.3 0.1-1.0 MG/DL Aspartate Amino Transf (AST/SGOT) 8 5-34 U/L Alanine Aminotransferase (ALT/SGPT) 6 0-55 U/L Alkaline Phosphatase 91 40-136 U/L Troponin I < 0.028 <0.028 NG/ML Total Protein 5.9 L 6.4-8.2 GM/DL Albumin 3.2 3.2-4.5 GM/DL D-Dimer 10.24 H 0.00-0.49 UG/ML Blood Gas Puncture Site LEFT RADIAL Blood Gas Patient Temperature 98.8 Arterial Blood pH 7.54 H 7.37-7.43 Arterial Blood Partial Pressure CO2 40 35-45 MMHG Arterial Blood Partial Pressure O2 113 H 79-93 MMHG Arterial Blood HCO3 34 H 23-27 MMOL/L Arterial Blood Total CO2 35.4 H 21.0-31.0 MMOL/L Arterial Blood Oxygen Saturation 99 94-100 % Arterial Blood Base Excess 10.7 H -2.5-2.5 MMOL/L Angus Test YES-POS Blood Gas Ventilator Setting NO Blood Gas Inspired Oxygen 2L My Orders Orders - ENRICO LINDSEY Arterial Blood Gas (11/04/18 18:09) Cbc With Automated Diff (11/04/18 18:09) Comprehensive Metabolic Panel (11/04/18 18:09) Magnesium (11/04/18 18:09) Troponin I (11/04/18 18:09) Albuterol/Ipra Inhalation Soln (Duoneb I (11/04/18 18:15) Chest Pa/Lat (2 View) (11/04/18 18:09) Svn Small Volume Nebulizer (11/04/18 18:09) O2 (11/04/18 18:27) Fibrin Degradation Products (11/04/18 20:07) Enoxaparin Injection (Lovenox Injection) (11/04/18 20:30) Arterial Blood Draw (11/04/18 ) Medications Given in ED Current Medications Medications Dose Ordered Sig/Nisha Route Start Time Stop Time Status Last Admin Dose Admin Albuterol/ Ipratropium 3 ml ONCE ONCE INH 11/04/18 18:15 11/04/18 18:16 DC 11/04/18 19:15 3 ML Enoxaparin Sodium 60 mg ONCE ONCE SC 11/04/18 20:30 11/04/18 20:31 DC 11/04/18 20:49 60 MG Vital Signs/I&O 11/04/18 11/04/18 11/04/18 11/04/18 18:02 18:22 19:20 23:12 Temp 98.8 98.8 Pulse 78 74 Resp 20 18 B/P (MAP) 125/66 (85) 123/60 (81) Pulse Ox 92 97 97 O2 Delivery Nasal Cannula Nasal Cannula Nasal Cannula O2 Flow Rate 2.00 2.00 2.00 Capillary Refill : Progress Note : Time: 18:19 Progress Note Two-view chest x-ray looking for pneumonia. She does not seem to be in any overt fluid overload on clinical exam. Could be an atypical anginal presentation. Much less likely she could have a pulmonary embolism and be unable to mount ta chycardia secondary to metoprolol or could be subsegmental. ABG and give her a breathing treatment see if a COPD related although I don't hear any wheezing on initial exam. Vital signs are aseptic. She's not in atrial fibrillation although she is paroxysmal could be explaining some of her feeling short of breath and weakness so we'll keep her on the monitor. While documenting the patient's oxygen sats did dip down to 89% on room air with a good pulsatile waveform and her respiratory rate did increase into the upper 20s. We put her on 2 L nasal cannula and that brought her up to 96% and she is much more comfortable. EKG with Dr. Fortune 2016: LVEF 55%. Severe tricuspid regurgitation with moderate to severe pulmonary hypertension. Severe mitral regurg and mild mitral stenosis. Moderate aortic insufficiency and borderline to mild aortic stenosis. ECG Initial ECG Impression Date: Nov 04, 2018 Initial ECG Impression Time: 18:03 Initial ECG Rate: 74 Initial ECG Rhythm: Normal Sinus Initial ECG Intervals: Normal Initial ECG Impression: Nonspecific Changes, 1st Degree AV Block Initial ECG Comparisson: Unchanged Comment Normal sinus rhythm with first-degree AV block and no evidence of ST elevation or depression. Diagnostic Imaging Diagonstic Imaging: Xray Plain Films/CT/US/NM/MRI: chest (2v) Comments NAME: DARNELL FRANKLIN MED REC#: [id number] PT STATUS: REG ER : 1940 PHYSICIAN: ENRICO LINDSEY MD ADMIT DATE: 11/04/18/ER Draft Date of Exam:11/04/18 CHEST PA/LAT (2 VIEW) INDICATION: Shortness of air. COMPARISON: 08/10/2018 FINDINGS: Single frontal radiographic view of the chest was obtained and demonstrates persistent mild cardiomegaly. Pulmonary vasculature is within normal limits. Lungs show mildly prominent diffusely coarse appearance to the interstitium. There is no new focal consolidation or pneumothorax. There do appear to be small bibasilar effusions. Note is made of calcified aortic atherosclerosis. Osseous structures show no gross acute abnormalities. IMPRESSION: 1. Persistent mild cardiomegaly, but no evidence of overt failure. 2. Probable background chronic interstitial lung disease. 3. Small bibasilar effusions. Dictated on workstation # [id number] Dict: 11/04/18 1840 Trans: 11/04/18 1844 [facility] [id number] Interpreted by: RITA CARLOS MD Electronically signed by: Reviewed: Reviewed by Me Departure Impression Primary Impression: Acute respiratory distress Additional Impressions: Metabolic alkalosis Hypoxia ESRD (end stage renal disease) on dialysis Disposition: XFER SHT-TRM HOSP Condition: Stable Transfer Time Spoke to Accepting Phy: 20:[address] Wood; [facility] would accept. Nephrology ok to get stat CTA and HD tomorrow inpt. NM not available on weekend. Lovenox q24h. Transfer Time: 23:12 Transfer Facility: [facility] [place] Method of Transfer: EMS Departure-Patient Inst. Referrals: NALLELY SOLIMAN MD (PCP/Family) Primary Care Physician ENRICO LINDSEY Nov 04, 2018 18:18
--- NOTE | 2018-11-04 18:22 | NUR ---
O2 SATS DECREASING TO 88% ON RA. DR. 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 O2 SATS INCREASED IMMEDIATELY TO 92% AND CLIMBING.
--- NOTE | 2018-11-04 18:44 | Diagnostic Imaging Report ---
INDICATION: Shortness of air. COMPARISON: 08/10/2018 FINDINGS: Single frontal radiographic view of the chest was obtained and demonstrates persistent mild cardiomegaly. Pulmonary vasculature is within normal limits. Lungs show mildly prominent diffusely coarse appearance to the interstitium. There is no new focal consolidation or pneumothorax. There do appear to be small bibasilar effusions. Note is made of calcified aortic atherosclerosis. Osseous structures show no gross acute abnormalities. IMPRESSION: 1. Persistent mild cardiomegaly, but no evidence of overt failure. 2. Probable background chronic interstitial lung disease. 3. Small bibasilar effusions. Dictated by: Dictated on workstation # [id number]
[2018-11-04 18:57] LABS: BASOPHILS % (AUTO) 0 % (0-10); EOSINOPHILS # (AUTO) 0.1 10^3/uL (0.0-0.3); EOSINOPHILS % (AUTO) 1 % (0-10); HEMATOCRIT 32 % (35-52); HEMOGLOBIN 9.9 G/DL (11.5-16.0); LYMPHOCYTES % (AUTO) 15 % (12-44); MEAN CORPUSCULAR HEMOGLOBIN 29 PG (25-34); MEAN CORPUSCULAR HGB CONC 31 G/DL (32-36); MEAN CORPUSCULAR VOLUME 92 FL (80-99); MEAN PLATELET VOLUME 9.9 FL (7.4-10.4); MONOCYTES # (AUTO) 0.7 X 10^3 (0.0-1.0); MONOCYTES % (AUTO) 10 % (0-12); NEUTROPHILS % (AUTO) 74 % (42-75); PLATELET COUNT 273 10^3/uL (130-400); RED CELL DISTRIBUTION WIDTH 15.8 % (10.0-14.5); WHITE BLOOD COUNT 6.7 10^3/uL (4.3-11.0)
[2018-11-04 19:16] LABS: ALANINE AMINOTRANSFERASE 6 U/L (0-55); ALBUMIN 3.2 GM/DL (3.2-4.5); ALKALINE PHOSPHATASE 91 U/L (40-136); BILIRUBIN,TOTAL 0.3 MG/DL (0.1-1.0); BUN/CREATININE RATIO 5; CALCIUM 8.6 MG/DL (8.5-10.1); CARBON DIOXIDE 31 MMOL/L (21-32); CHLORIDE 97 MMOL/L (98-107); CREATININE SERUM 4.36 MG/DL (0.60-1.30); GFR ESTIMATED 10; GLUCOSE 108 MG/DL (70-105); MAGNESIUM 2.4 MG/DL (1.8-2.4); POTASSIUM 3.9 MMOL/L (3.6-5.0); SODIUM 141 MMOL/L (135-145); TOTAL PROTEIN 5.9 GM/DL (6.4-8.2)
[2018-11-04 19:22] LABS: ABG BASE EXCESS 10.7 MMOL/L (-2.5-2.5); ABG OXYGEN SATURATION 99 % (94-100); ABG PCO2 40 MMHG (35-45); ABG PH 7.54 (7.37-7.43); ABG PO2 113 MMHG (79-93); ABG TCO2 35.4 MMOL/L (21.0-31.0)
[2018-11-04 19:23] LABS: ALLENS TEST YES-POS
[2018-11-04 19:24] LABS: INSPIRED O2 2L; PATIENT TEMP 98.8; VENTILATOR NO
[2018-11-04] MEDS ORDERED: ENOXAPARIN 60 MG/0.6 ML (LOVENOX) SYR SC ONE (20:30)
--- NOTE | 2018-11-04 20:31 | NUR ---
FACESHEET AND VITAL SIGNS SENT TO [facility]. AWAITING RETURN CALL FOR ROOM ASSIGNMENT.
--- NOTE | 2018-11-04 21:20 | NUR ---
[facility] DOES NOT CURRENTLY HAVE ROOM AVAILABLE. AWAITING RETURN CALL FOR ROOM ASSIGNMENT.
--- NOTE | 2018-11-04 22:30 | NUR ---
[facility] CONTACTED AGAIN FOR ROOM ASSIGNMENT AND ROOM NUMBER [id number] GIVEN. [facility] CAPTAIN NOTIFIED OF TRANSFER AND APPROVAL GIVEN TO CALL DISPATCH FOR TRANSFER.
--- NOTE | 2018-11-04 22:45 | NUR ---
REPORT TO KATHRYN YO AT [place].
[2018-11-04 23:12] VITALS: BP 123/60
--- NOTE | 2018-11-04 23:12 | NUR ---
[facility] HERE AT THIS TIME. REPORT GIVEN. TRANSFER OF CARE OF PT TO EMS WITH ALL PT BELONGINGS.
== END 2018-11-04 23:12 | disposition short-term general hospital (02) ==
LOC: EDUNIT# 18:01 → ER 18:02
DX: R09.02 Hypoxemia (principal); R06.03 Acute respiratory distress; E87.3 Alkalosis; I12.0 Hypertensive chronic kidney disease with stage 5 chronic kidney disease or end stage renal disease; N18.6 End stage renal disease; J44.9 Chronic obstructive pulmonary disease, unspecified; E78.00 Pure hypercholesterolemia, unspecified; I48.91 Unspecified atrial fibrillation; Z86.018 Personal history of other benign neoplasm; Z91.14 Patient's other noncompliance with medication regimen; Z99.2 Dependence on renal dialysis; Z91.041 Radiographic dye allergy status; Z88.8 Allergy status to other drugs, medicaments and biological substances; Z88.0 Allergy status to penicillin; Z88.2 Allergy status to sulfonamides; Z88.5 Allergy status to narcotic agent; Z90.49 Acquired absence of other specified parts of digestive tract; Z90.710 Acquired absence of both cervix and uterus
CPT/HCPCS: 36415; 36600; 71046; 80053; 82805; 83735; 84484; 85025; 85379; 94640

== ENCOUNTER 2018-12-06 15:44 | Emergency (ER) | payer MEDICARE, MEDICAID ==
[~2018-12-06] VITALS: Ht 170.2 cm; Wt 49.9 kg
[2018-12-06 16:13] LABS: BASOPHILS % (AUTO) 0 % (0-10); EOSINOPHILS # (AUTO) 0.1 10^3/uL (0.0-0.3); EOSINOPHILS % (AUTO) 2 % (0-10); HEMATOCRIT 32 % (35-52); HEMOGLOBIN 9.6 G/DL (11.5-16.0); LYMPHOCYTES # (AUTO) 0.7 X 10^3 (1.0-4.0); LYMPHOCYTES % (AUTO) 12 % (12-44); MEAN CORPUSCULAR HEMOGLOBIN 28 PG (25-34); MEAN CORPUSCULAR HGB CONC 31 G/DL (32-36); MEAN CORPUSCULAR VOLUME 91 FL (80-99); MEAN PLATELET VOLUME 9.6 FL (7.4-10.4); MONOCYTES # (AUTO) 0.7 X 10^3 (0.0-1.0); MONOCYTES % (AUTO) 11 % (0-12); NEUTROPHILS # (AUTO) 4.7 X 10^3 (1.8-7.8); NEUTROPHILS % (AUTO) 75 % (42-75); PLATELET COUNT 333 10^3/uL (130-400); RED CELL DISTRIBUTION WIDTH 16.4 % (10.0-14.5); WHITE BLOOD COUNT 6.3 10^3/uL (4.3-11.0)
[2018-12-06 16:23] LABS: INR 1.2 (0.8-1.4); PROTHROMBIN TIME PATIENT 16.1 SEC (12.2-14.7)
--- NOTE | 2018-12-06 16:33 | ED General ---
General Chief Complaint: Respiratory Problems Stated Complaint: CP/SOB Nursing Triage Note: TO ED PER EMS PATIENT IS A DIALYSIS PATIENT HAD DIALYSIS ON [facility] AND TODAY CON'T T FEEL SOA. WAS IN [place] LAST WEEK FOR SAME THING. ABD DISTENDED PATIENT REPORT IT HAS BEEN THAT WAY FOR A MONTH . Nursing Sepsis Screen: No Definite Risk Source of Information: Patient Exam Limitations: No Limitations History of Present Illness Date Seen by Provider: Dec 06, 2018 Time Seen by Provider: 15:42 Initial Comments This 78-year-old woman presents to the emergency room with complaints of shortness of air for the past several days. She has end-stage renal failure and is on dialysis. She had dialysis earlier today. She was recently admitted at [facility] and states no specific determination was made as to the cause of her shortness of breath. Secondarily she has worsening bloating of the abdomen over the past few months. This is mildly uncomfortable but not particularly painful. She does not describe chest pain. She presents via EMS from [facility]. She is afebrile. She has not been coughing. She makes very little urine. She does have COPD and has used a few breathing treatments since being discharged from [facility], but she does not use breathing treatments routinely. Allergies and Home Medications Allergies Coded Allergies: povidone-iodine (Verified Allergy, Mild, 12/05/16) ranitidine (Verified Allergy, Mild, 12/05/16) soap (Verified Allergy, Mild, 12/05/16) tetracycline (Verified Allergy, Mild, 12/05/16) Penicillins (Verified Allergy, Unknown, 12/05/16) Sulfa (Sulfonamide Antibiotics) (Verified Allergy, Unknown, 12/05/16) Uncoded Allergies: NARCOTIC (Allergy, Mild, 12/01/16) Home Medications Albuterol Sulfate 2.5 Mg/3 Ml Vial.neb, 2.5 MG INH Q4H PRN for WHEEZING Prescribed by: SEGUN BOWEN on 12/06/18 1752 Cefdinir 300 Mg Capsule, 300 MG PO UD Take 1 capsule after dialysis on and Wed Prescribed by: SANDRA MASON on 05/29/17 2300 Cephalexin 500 Mg Capsule, 500 MG PO DAILY Prescribed by: ANDREW SIERRA on 10/10/18 1303 Cinacalcet HCl 90 Mg Tablet, 90 MG PO BID, (Reported) Metoprolol Tartrate 25 Mg Tablet, 25 MG PO DAILY, (Reported) Ondansetron 4 Mg Tab.rapdis, 4 MG PO Q6H PRN for NAUSEA/VOMITING-1ST LINE Prescribed by: ENRICO LINDSEY on 08/08/18 1457 Polyethylene Glycol 3350 17 Gm Powd.pack, 17 GM PO BID Prescribed by: ANDREW SIERRA on 04/13/18 1718 Sevelamer Carbonate 800 Mg Tablet, 1,600 MG PO TIDWM, (Reported) TAKES 2 (800 MG) TABLETS Patient Home Medication List Home Medication List Reviewed: Yes Review of Systems Review of Systems Constitutional: no symptoms reported EENTM: no symptoms reported Respiratory: see HPI Cardiovascular: no symptoms reported Gastrointestinal: see HPI Genitourinary: see HPI : No Musculoskeletal: no symptoms reported Skin: no symptoms reported Psychiatric/Neurological: No Symptoms Reported Hematologic/Lymphatic: No Symptoms Reported Immunological/Allergic: no symptoms reported Past Ddqxxxw-Nvypyq-Cezhto Hx Past Med/Social Hx: Reviewed Nursing Past Med/Soc Hx Patient Social History Alcohol Use: Denies Use Recreational Drug Use: No Smoking Status: Never a Smoker 2nd Hand Smoke Exposure: No Recent Foreign Travel: No Contact w/Someone Who Travel: No Recent Infectious Disease Expo: No Recent Hopitalizations: No Immunizations Up To Date Tetanus Booster (TDap): Unknown Date of Pneumonia Vaccine: Jan 04, 2012 Date of Influenza Vaccine: Jan 09, 2017 Seasonal Allergies Seasonal Allergies: No Past Medical History Surgeries: Yes (DIALYSIS GRAFT/SHUNT RIGHT UPPER ARM; RIGHT KNEE TUMOR REMOVAL ) Appendectomy, Dialysis, Hysterectomy, Orthopedic, Tonsillectomy, Vascular Surgery Respiratory: Yes COPD Currently Using CPAP: No Currently Using BIPAP: No Cardiac: Yes Atrial Fibrillation, Heart Murmur, High Cholesterol, Hypertension, Irregular Heartbeat Neurological: No Reproductive Disorders: No Genitourinary: Yes Renal Failure, Dialysis Gastrointestinal: No Musculoskeletal: Yes (LEFT WRIST FRACTURE) Endocrine: No HEENT: No Cancer: No Psychosocial: Yes Integumentary: No Blood Disorders: No Adverse Reaction/Blood Tranf: No Family Medical History Patient reports no known family medical history. No Pertinent Family Hx Physical Exam Vital Signs Vital Signs - First Documented 12/06/18 15:47 Temp 37.8 Pulse 71 Resp 18 B/P (MAP) 116/50 (72) Pulse Ox 95 O2 Delivery Room Air Capillary Refill : Less Than 3 Seconds Height, Weight, BMI Height: 5'7.00" Weight: 110lbs. 0oz. 49.372173qq; 20.0 BMI Method:Actual General Appearance: No Apparent Distress, WD/WN, Thin HEENT: PERRL/EOMI, Normal ENT Inspection Neck: Normal Inspection Respiratory: Lungs Clear, No Accessory Muscle Use, No Respiratory Distress, Decreased Breath Sounds Cardiovascular: Regular Rate, Rhythm, No Edema, No Murmur, Systolic Murmur Gastrointestinal: Normal Bowel Sounds, Soft, Distended, Tenderness (subtly and diffusely) Extremity: Normal Inspection, Non Tender, No Pedal Edema Neurologic/Psychiatric: Alert, Oriented x3, No Motor/Sensory Deficits, Normal Mood/Affect, music sound light technician II-XII Norm as Tested Skin: Normal Color, Warm/Dry Progress/Results/Core Measures Suspected Sepsis Recent Fever Within 48 Hours: No Infection Criteria Present: None New/Unexplained Altered Menta: No Sepsis Screen: No Definite Risk SIRS Temperature: Pulse: 71 Respiratory Rate: 18 Laboratory Tests 12/06/18 16:04: White Blood Count 6.3 Blood Pressure 116 /50 Mean: 72 Laboratory Tests 12/06/18 16:04: Creatinine 2.97H, INR Comment 1.2, Platelet Count 333, Total Bilirubin 0.3 Results/Orders Lab Results Laboratory Tests Test 12/06/18 16:04 Range/Units White Blood Count 6.3 4.3-11.0 10^3/uL Red Blood Count 3.45 L 4.35-5.85 10^6/uL Hemoglobin 9.6 L 11.5-16.0 G/DL Hematocrit 32 L 35-52 % Mean Corpuscular Volume 91 80-99 FL Mean Corpuscular Hemoglobin 28 25-34 PG Mean Corpuscular Hemoglobin Concent 31 L 32-36 G/DL Red Cell Distribution Width 16.4 H 10.0-14.5 % Platelet Count 333 130-400 10^3/uL Mean Platelet Volume 9.6 7.4-10.4 FL Neutrophils (%) (Auto) 75 42-75 % Lymphocytes (%) (Auto) 12 12-44 % Monocytes (%) (Auto) 11 0-12 % Eosinophils (%) (Auto) 2 0-10 % Basophils (%) (Auto) 0 0-10 % Neutrophils # (Auto) 4.7 1.8-7.8 X 10^3 Lymphocytes # (Auto) 0.7 L 1.0-4.0 X 10^3 Monocytes # (Auto) 0.7 0.0-1.0 X 10^3 Eosinophils # (Auto) 0.1 0.0-0.3 10^3/uL Basophils # (Auto) 0.0 0.0-0.1 10^3/uL Prothrombin Time 16.1 H 12.2-14.7 SEC INR Comment 1.2 0.8-1.4 Activated Partial Thromboplast Time 35 24-35 SEC Sodium Level 140 135-145 MMOL/L Potassium Level 4.0 3.6-5.0 MMOL/L Chloride Level 95 L 98-107 MMOL/L Carbon Dioxide Level 35 H 21-32 MMOL/L Anion Gap 10 5-14 MMOL/L Blood Urea Nitrogen 14 7-18 MG/DL Creatinine 2.97 H 0.60-1.30 MG/DL Estimat Glomerular Filtration Rate 15 BUN/Creatinine Ratio 5 Glucose Level 92 70-105 MG/DL Calcium Level 8.7 8.5-10.1 MG/DL Corrected Calcium 9.1 8.5-10.1 MG/DL Magnesium Level 2.4 1.6-2.4 MG/DL Total Bilirubin 0.3 0.1-1.0 MG/DL Aspartate Amino Transf (AST/SGOT) 12 5-34 U/L Alanine Aminotransferase (ALT/SGPT) 8 0-55 U/L Alkaline Phosphatase 114 40-136 U/L Troponin I < 0.028 <0.028 NG/ML B-Type Natriuretic Peptide 1606.2 H <100.0 PG/ML Total Protein 6.7 6.4-8.2 GM/DL Albumin 3.5 3.2-4.5 GM/DL My Orders Orders - SEGUN CORDOVA MD BNP (12/06/18 15:53) Cbc With Automated Diff (12/06/18 15:53) Comprehensive Metabolic Panel (12/06/18 15:53) Magnesium (12/06/18 15:53) Protime With Inr (12/06/18 15:53) Partial Thromboplastin Time (12/06/18 15:53) Troponin I (12/06/18 15:53) Ed Iv/Invasive Line Start (12/06/18 15:53) Ekg Tracing (12/06/18 15:53) Monitor-Rhythm Ecg Trace Only (12/06/18 15:53) Chest Pa/Lat (2 View) (12/06/18 15:53) Ua Culture If Indicated (12/06/18 15:53) Albuterol/Ipra Inhalation Soln (Duoneb I (12/06/18 16:00) Svn Small Volume Nebulizer (12/06/18 15:53) Ct Abdomen/Pelvis Wo (12/06/18 16:49) Medications Given in ED Current Medications Medications Dose Ordered Sig/Nisha Route Start Time Stop Time Status Last Admin Dose Admin Albuterol/ Ipratropium 3 ml ONCE ONCE INH 12/06/18 16:00 12/06/18 16:01 DC 12/06/18 16:40 3 ML Vital Signs/I&O 12/06/18 12/06/18 12/06/18 15:47 16:41 16:57 Temp 37.8 Pulse 71 80 Resp 18 18 B/P (MAP) 116/50 (72) 103/41 (61) Pulse Ox 95 96 100 O2 Delivery Room Air Room Air Room Air Capillary Refill : Less Than 3 Seconds Blood Pressure Mean: 72 Progress Note : Progress Note Patient received a DuoNeb treatment which improved her breathing somewhat. She still wanted her abdominal distention addressed. CT of the abdomen and pelvis was obtained and showed ascites and hiatal hernia without any other significant abnormalities. Her oxygen saturations are in the upper 90s on room air. She is not in respiratory distress or in extreme discomfort. Surgical intervention with paracentesis is not an emergent need at this time. I am referring her to Dr. Cano to establish with him for possible paracentesis in the future. She is also being prescribed a nebulizer machine and albuterol for treatment of the COPD. ECG Initial ECG Impression Date: Dec 06, 2018 Initial ECG Impression Time: 16:37 Initial ECG Rate: 71 Initial ECG Rhythm: Normal Sinus Initial ECG Intervals: Normal Initial ECG Impression: Normal Comment Normal sinus rhythm with no ST elevation or depression. No abnormal intervals or axis deviation. Diagnostic Imaging Diagonstic Imaging: Xray Plain Films/CT/US/NM/MRI: chest Comments Chest x-ray viewed by me and report reviewed. See report below: NAME: DARNELL FRANKLIN MED REC#: [id number] PT STATUS: REG ER : 1940 PHYSICIAN: SEGUN CORDOVA MD ADMIT DATE: 12/06/18/ER Draft Date of Exam:12/06/18 CHEST PA/LAT (2 VIEW) INDICATION: Shortness of air. TIME OF EXAM: 4:32 p.m. COMPARISON: Correlation is made with prior chest from 11/04/2018. FINDINGS: The heart is enlarged but stable. No significant infiltrate or evidence of congestive failure is seen. Previously noted trace bilateral effusions persist. There is no pneumothorax. IMPRESSION: Stable chest since examination from one month earlier. Dictated on workstation # [id number] Dict: 12/06/18 1633 Trans: 12/06/18 1638 [id number] Interpreted by: IVETT KOROMA MD Departure Impression Primary Impression: COPD exacerbation Additional Impressions: Ascites Qualified Codes: R18.8 - Other ascites Hiatal hernia End stage renal disease on dialysis Disposition: 01 HOME, SELF-CARE Condition: Improved Departure-Patient Inst. Decision time for Depature: 17:46 Referrals: SERENE CANO HOLLY R MD (PCP/Family) Primary Care Physician Patient Instructions: Fluid in the Belly (Ascites), Hiatal Hernia Add. Discharge Instructions: Continue with dialysis as previously instructed. Use nebulizer treatments every 4 hours as necessary for shortness of breath or wheezing. Make an appointment with Dr. Cano to establish care for possible paracentesis (abdominal draining) in the future. Return to care if you have worsening symptoms that need emergently addressed. All discharge instructions reviewed with patient and/or family. Voiced understanding. Scripts Albuterol Sulfate (Albuterol Sulfate) 2.5 Mg/3 Ml Vial.neb 2.5 MG INH Q4H PRN for WHEEZING, #50 EA 1 Refill Prov: SEGUN CORDOVA MD 12/06/18 Copy Copies To 1: SERENE CANO DO Copies To 2: NALLELY SOLIMAN MD, JOSHUA T MD Dec 06, 2018 16:33
[2018-12-06 16:35] LABS: ALANINE AMINOTRANSFERASE 8 U/L (0-55); ALBUMIN 3.5 GM/DL (3.2-4.5); ALKALINE PHOSPHATASE 114 U/L (40-136); BILIRUBIN,TOTAL 0.3 MG/DL (0.1-1.0); BUN/CREATININE RATIO 5; CALCIUM 8.7 MG/DL (8.5-10.1); CARBON DIOXIDE 35 MMOL/L (21-32); CHLORIDE 95 MMOL/L (98-107); CREATININE SERUM 2.97 MG/DL (0.60-1.30); GFR ESTIMATED 15; GLUCOSE 92 MG/DL (70-105); MAGNESIUM 2.4 MG/DL (1.6-2.4); SODIUM 140 MMOL/L (135-145); TOTAL PROTEIN 6.7 GM/DL (6.4-8.2)
--- NOTE | 2018-12-06 16:39 | Diagnostic Imaging Report ---
INDICATION: Shortness of air. TIME OF EXAM: 4:32 p.m. COMPARISON: Correlation is made with prior chest from 11/04/2018. FINDINGS: The heart is enlarged but stable. No significant infiltrate or evidence of congestive failure is seen. Previously noted trace bilateral effusions persist. There is no pneumothorax. IMPRESSION: Stable chest since examination from one month earlier. Dictated by: Dictated on workstation # [id number]
[2018-12-06] MEDS: RT-ALBUTEROL/IPRATROPIUM 3 ML (DUONEB) VIAL INH ONE (16:40)
[2018-12-06 16:57] VITALS: BP 103/41
--- NOTE | 2018-12-06 17:27 | Diagnostic Imaging Report ---
PROCEDURE: CT abdomen and pelvis without contrast. TECHNIQUE: Multiple contiguous axial images were obtained through the abdomen and pelvis without the use of intravenous contrast. Auto Exposure Controls were utilized during the CT exam to meet ALARA standards for radiation dose reduction. INDICATION: Abdominal pain and bloating as well as nausea and vomiting. COMPARISON: Correlation is made with prior CT from 04/13/2018. FINDINGS: Heart remains enlarged. Previously noted right basilar opacity is unchanged. Large hiatal hernia is again noted. No discrete liver mass is identified. Gallbladder appears to be contracted. There is no biliary ductal dilatation. Pancreas and spleen are unremarkable. No adrenal mass is seen. Both kidneys are atrophic. Aorta and iliac vessels are heavily calcified but nonaneurysmal. Bowel loops are not dilated. Pattern appears to be nonobstructed. Patient does have moderate abdominal and pelvic ascites, increased since prior CT from March. No free air or loculated collection is identified. Bladder is decompressed. Uterus appears to be absent or atrophic. IMPRESSION: 1. Large hiatal hernia. 2. Moderate ascites throughout the abdomen and pelvis, increased when compared with prior CT from March 2018. No loculated collection or evidence of free air is seen. No other significant abnormality is detected. Dictated by: Dictated on workstation # [id number]
--- NOTE | 2018-12-06 17:42 | NUR ---
UA NOT OBTAINED DUE TO PATIENT MAKES MIMIAL URINE.
[2018-12-06] MEDS ORDERED: ALBU2.5V4 INH (17:52)
[2018-12-06 18:17] VITALS: BP 108/48
== END 2018-12-06 17:59 | disposition home or self-care (01) ==
LOC: ER 15:44
DX: J44.1 Chronic obstructive pulmonary disease with (acute) exacerbation (principal); R18.8 Other ascites; K44.9 Diaphragmatic hernia without obstruction or gangrene; I12.0 Hypertensive chronic kidney disease with stage 5 chronic kidney disease or end stage renal disease; N18.6 End stage renal disease; I48.91 Unspecified atrial fibrillation; E78.00 Pure hypercholesterolemia, unspecified; Z99.2 Dependence on renal dialysis; Z91.041 Radiographic dye allergy status; Z88.8 Allergy status to other drugs, medicaments and biological substances; Z88.1 Allergy status to other antibiotic agents; Z88.0 Allergy status to penicillin; Z88.2 Allergy status to sulfonamides; Z90.49 Acquired absence of other specified parts of digestive tract; Z90.710 Acquired absence of both cervix and uterus; Z90.89 Acquired absence of other organs; Z86.012 Personal history of benign carcinoid tumor
CPT/HCPCS: 36415; 71046; 74176; 80053; 83735; 83880; 84484; 85025; 85610; 85730; 93005; 93041; 94640

== ENCOUNTER 2019-01-02 05:38 | Outpatient (CLI) | payer MEDICARE, MEDICAID ==
[~2019-01-02] VITALS: Ht 160 cm; Wt 48.6 kg
[~2019-01-02 05:38] MED LIST changes: +ALBU2.5V4 INH; +APIX2.5T PO; +CALC-870 PO; +CETI10TA20 PO; +FLEC50TA PO; +LACT1CAP39 PO; +LOPE-145 PO; +MIRT7.5T8 PO; +MULT-974 PO
[2019-01-02] MEDS ORDERED: MIRT15TA6 PO (11:50)
== END 2019-01-02 14:51 | disposition home or self-care (01) ==
LOC: PREOP 05:38
PROVIDERS: ATTEND Surgery
DX: Z01.818 Encounter for other preprocedural examination (principal)

== ENCOUNTER → 2019-01-24 | Outpatient (CLI) | payer MEDICARE, MEDICAID ==
[~2019-01-24] MED LIST changes: +MIRT15TA6 PO
== END ==
LOC: CARD 13:43
PROVIDERS: ATTEND Internal Medicine Interventional Cardiology
DX: I08.3 Combined rheumatic disorders of mitral, aortic and tricuspid valves (principal); I27.20 Pulmonary hypertension, unspecified; I50.32 Chronic diastolic (congestive) heart failure
CPT/HCPCS: 93306

== ENCOUNTER → 2019-01-27 | Outpatient (CLI) | payer MEDICARE, MEDICAID ==
[~2019-01-27] MED LIST changes: -LOPE-145 PO; +LOPE-175 PO; +OMEP-280 PO; -OMEP20CA13 PO
--- NOTE | 2019-01-27 15:11 | Diagnostic Imaging Report ---
PROCEDURE: US Abdomen, limited. TECHNIQUE: Multiple real-time grayscale images were obtained over the abdomen in various projections. INDICATION: Recurrent ascites. FINDINGS: Sonographic interrogation of the right and left upper and lower quadrants was performed. There is some [id number]-zh-[id number] ascites in the right lower quadrant with multiple bowel loops present. Minimal fluid in the right upper quadrant is seen. Trace fluid in the left upper quadrant and left lower quadrant is noted. IMPRESSION: Ascites, as described. Dictated by: Dictated on workstation # [id number]
== END ==
LOC: RAD 11:27
PROVIDERS: ATTEND Surgery
DX: R18.8 Other ascites (principal)
CPT/HCPCS: 76705

== ENCOUNTER → 2019-06-02 | Outpatient (CLI) | payer MEDICARE, MEDICAID ==
[~2019-06-02] MED LIST changes: -CETI10TA20 PO; +CETI10TA21 PO; -OMEP-280 PO; +OMEP20CA18 PO
--- NOTE | 2019-06-02 09:09 | Diagnostic Imaging Report ---
INDICATION: Abdominal pain and chronic diarrhea. PROCEDURE: Ultrasound abdomen complete. TECHNIQUE: Multiple real-time grayscale images were obtained of the abdomen in various projections. FINDINGS: Liver is upper limits of normal in size at 17.8 cm. No discrete liver mass is detected. The portal vein is patent and shows normal direction of flow. Gallbladder does contain small stones. No definite wall thickening or biliary ductal dilatation is seen. Visualized pancreas is unremarkable. Spleen measures 9.2 cm in size and contains multiple granulomas. Both kidneys are small and echogenic consistent with medical renal disease. These appear to contain small cysts. No hydronephrosis or calculi are seen. There is ascites present in the upper abdomen. IMPRESSION: 1. Cholelithiasis without evidence of acute cholecystitis. 2. Small echogenic kidneys bilaterally consistent with medical renal disease. No hydronephrosis is seen. 3. Ascites. Dictated by: Dictated on workstation # [id number]
== END ==
LOC: RAD 07:35
PROVIDERS: ATTEND Nurse Practitioner
DX: K80.20 Calculus of gallbladder without cholecystitis without obstruction (principal); K59.9 Functional intestinal disorder, unspecified; R18.8 Other ascites
CPT/HCPCS: 76700

== ENCOUNTER 2019-06-06 11:16 | Emergency (ER) | payer MEDICARE, MEDICAID ==
[~2019-06-06] VITALS: Ht 170 cm; Wt 48.6 kg
--- NOTE | 2019-06-06 11:34 | ED Abdominal Pain ---
General Chief Complaint: Abdominal/GI Problems Stated Complaint: ABD PAIN Source of Information: Patient, EMS Exam Limitations: No Limitations History of Present Illness Date Seen by Provider: Jun 06, 2019 Time Seen by Provider: 11:30 Initial Comments To ER per EMS from dialysis with reports of abdominal pain and distention, she has had to have paracentesis in the past. She was only able to receive about half of her dialysis treatment today because she was unable to sit in the chair as that position caused her to much pain. No fevers or chills. She is on Eliquis Timing/Duration: 1-2 Days Severity/Quality: Moderate Location: Generalized Abdomen Radiation: No Radiation Activities at Onset: None Associated Symptoms: Fever/Chills Allergies and Home Medications Allergies Coded Allergies: povidone-iodine (Verified Allergy, Mild, 12/05/16) ranitidine (Verified Allergy, Mild, 12/05/16) soap (Verified Allergy, Mild, 12/05/16) tetracycline (Verified Allergy, Mild, 12/05/16) Penicillins (Verified Allergy, Unknown, 12/05/16) Sulfa (Sulfonamide Antibiotics) (Verified Allergy, Unknown, 12/05/16) Uncoded Allergies: NARCOTIC (Allergy, Mild, 12/01/16) Home Medications Apixaban 2.5 Mg Tablet, 2.5 MG PO BID, (Reported) Calcium Carbonate 300 Mg Tab.chew, 300 MG PO UD PRN for HEARTBURN, (Reported) Cetirizine HCl 10 Mg Tablet, 10 MG PO DAILY, (Reported) Cinacalcet HCl 90 Mg Tablet, 90 MG PO BID, (Reported) Flecainide Acetate 50 Mg Tablet, 50 MG PO BID, (Reported) Lactobacillus Rhamnosus GG 1 Each Capsule, 1 EACH PO DAILY, (Reported) Loperamide HCl 2 Mg Capsule, 2 MG PO UD PRN for DIARRHEA, (Reported) Mirtazapine 15 Mg Tablet, 7.5 MG PO DAILY, (Reported) take 1/2 of 15mg tab Multivitamin 1 Each Tablet, 1 EACH PO DAILY, (Reported) Sevelamer Carbonate 800 Mg Tablet, 1,600 MG PO TIDWM, (Reported) TAKES 2 (800 MG) TABLETS Patient Home Medication List Home Medication List Reviewed: Yes Review of Systems Review of Systems Constitutional: see HPI; No chills, No fever EENTM: No Symptoms Reported Respiratory: No Symptoms Reported; Denies Orthopnea, Denies Shortness of Air Cardiovascular: No Symptoms Reported Gastrointestinal: See HPI, Abdominal Pain; Denies Diarrhea, Denies Nausea Genitourinary: No Symptoms Reported Musculoskeletal: no symptoms reported Skin: no symptoms reported Psychiatric/Neurological: No Symptoms Reported Endocrine: No Symptoms Reported Past Omaeleg-Rzyxwp-Olubxs Hx Patient Social History 2nd Hand Smoke Exposure: No Recent Foreign Travel: No Contact w/Someone Who Travel: No Recent Hopitalizations: No Immunizations Up To Date Tetanus Booster (TDap): Unknown Date of Pneumonia Vaccine: Jan 04, 2012 Date of Influenza Vaccine: Dec 28, 2018 Seasonal Allergies Seasonal Allergies: No Past Medical History Surgeries: Yes (DIALYSIS GRAFT/SHUNT RIGHT UPPER ARM; RIGHT KNEE TUMOR REMOVAL ) Appendectomy, Dialysis, Hysterectomy, Orthopedic, Tonsillectomy, Vascular Surgery Respiratory: Yes COPD Currently Using CPAP: No Currently Using BIPAP: No Cardiac: Yes Atrial Fibrillation, Heart Murmur, High Cholesterol, Hypertension, Irregular Heartbeat Neurological: No Reproductive Disorders: No Genitourinary: Yes Renal Failure, Dialysis Gastrointestinal: Yes Chronic Diarrhea Musculoskeletal: Yes Arthritis, Fractures Endocrine: No HEENT: No Cancer: No Psychosocial: No Integumentary: No Blood Disorders: No Adverse Reaction/Blood Tranf: No Family Medical History Patient reports no known family medical history. No Pertinent Family Hx Physical Exam Vital Signs Vital Signs - First Documented 06/06/19 11:18 Temp 36.9 Pulse 57 Resp 18 B/P (MAP) 137/59 (85) Pulse Ox 96 O2 Delivery Room Air Capillary Refill : Height/Weight/BMI Height: 5'7.00" Weight: 110lbs. 0oz. 49.257819rf; 18.98 BMI Method:Actual General Appearance: WD/WN, no apparent distress HEENT: PERRL/EOMI, normal ENT inspection Respiratory: normal breath sounds, no respiratory distress, no accessory muscle use Gastrointestinal: soft, abnormal bowel sounds (hypoactive), distended (large amount of ascites seen on bedside ultrasound) Extremities: normal range of motion, non-tender Neurologic/Psychiatric: alert, normal mood/affect, oriented x 3 Skin: normal color, warm/dry Progress/Results/Core Measures Results/Orders Lab Results Laboratory Tests Test 06/06/19 12:19 Range/Units White Blood Count 5.2 4.3-11.0 10^3/uL Red Blood Count 3.15 L 4.35-5.85 10^6/uL Hemoglobin 9.8 L 11.5-16.0 G/DL Hematocrit 30 L 35-52 % Mean Corpuscular Volume 95 80-99 FL Mean Corpuscular Hemoglobin 31 25-34 PG Mean Corpuscular Hemoglobin Concent 33 32-36 G/DL Red Cell Distribution Width 15.9 H 10.0-14.5 % Platelet Count 209 130-400 10^3/uL Mean Platelet Volume 9.9 7.4-10.4 FL Neutrophils (%) (Auto) 72 42-75 % Lymphocytes (%) (Auto) 17 12-44 % Monocytes (%) (Auto) 9 0-12 % Eosinophils (%) (Auto) 2 0-10 % Basophils (%) (Auto) 0 0-10 % Neutrophils # (Auto) 3.7 1.8-7.8 X 10^3 Lymphocytes # (Auto) 0.9 L 1.0-4.0 X 10^3 Monocytes # (Auto) 0.5 0.0-1.0 X 10^3 Eosinophils # (Auto) 0.1 0.0-0.3 10^3/uL Basophils # (Auto) 0.0 0.0-0.1 10^3/uL Sodium Level 137 135-145 MMOL/L Potassium Level 3.9 3.6-5.0 MMOL/L Chloride Level 95 L 98-107 MMOL/L Carbon Dioxide Level 30 21-32 MMOL/L Anion Gap 12 5-14 MMOL/L Blood Urea Nitrogen 46 H 7-18 MG/DL Creatinine 4.77 H 0.60-1.30 MG/DL Estimat Glomerular Filtration Rate 9 BUN/Creatinine Ratio 10 Glucose Level 90 70-105 MG/DL Calcium Level 8.5 8.5-10.1 MG/DL Corrected Calcium 8.7 8.5-10.1 MG/DL Total Bilirubin 0.4 0.1-1.0 MG/DL Aspartate Amino Transf (AST/SGOT) 11 5-34 U/L Alanine Aminotransferase (ALT/SGPT) 9 0-55 U/L Alkaline Phosphatase 135 40-136 U/L Total Protein 6.1 L 6.4-8.2 GM/DL Albumin 3.7 3.2-4.5 GM/DL Lipase 53 8-78 U/L My Orders Orders - ANDREW SIERRA HVAC DESIGN ENGINEER Cbc With Automated Diff (06/06/19 11:29) Comprehensive Metabolic Panel (06/06/19 11:29) Lipase (06/06/19 11:29) Vital Signs/I&O 06/06/19 11:18 Temp 36.9 Pulse 57 Resp 18 B/P (MAP) 137/59 (85) Pulse Ox 96 O2 Delivery Room Air Departure Communication (Admissions) Spoke with Dr. Freire, he would like her to be off of the eliquis for 48 hours prior to paracentesis. Spoke with his office staff who will coordinate with Nuria from scheduling in radiology here to have paracentesis done on afternoon (she has dialysis from 7:30 to 11:30 AM), they'll call the patient with a time. Impression Primary Impression: Ascites Additional Impression: ESRD on dialysis Disposition: HOME, SELF-CARE Condition: Stable Departure-Patient Inst. Decision time for Depature: 12:32 Referrals: NALLELY SOLIMAN MD (PCP/Family) Primary Care Physician Patient Instructions: Fluid in the Belly (Ascites) Add. Discharge Instructions: 1. Dr. Freire's office will call you with an appointment time on afternoon for the paracentesis. Return to ER for any concerns.Do not use the Becky renato until after the paracentesis. All discharge instructions reviewed with patient and/or family. Voiced understanding. ANDREW SIERRA APRN Jun 06, 2019 11:34
[2019-06-06 12:27] LABS: BASOPHILS % (AUTO) 0 % (0-10); EOSINOPHILS # (AUTO) 0.1 10^3/uL (0.0-0.3); EOSINOPHILS % (AUTO) 2 % (0-10); HEMATOCRIT 30 % (35-52); HEMOGLOBIN 9.8 G/DL (11.5-16.0); LYMPHOCYTES # (AUTO) 0.9 X 10^3 (1.0-4.0); LYMPHOCYTES % (AUTO) 17 % (12-44); MEAN CORPUSCULAR HEMOGLOBIN 31 PG (25-34); MEAN CORPUSCULAR HGB CONC 33 G/DL (32-36); MEAN CORPUSCULAR VOLUME 95 FL (80-99); MEAN PLATELET VOLUME 9.9 FL (7.4-10.4); MONOCYTES # (AUTO) 0.5 X 10^3 (0.0-1.0); MONOCYTES % (AUTO) 9 % (0-12); NEUTROPHILS # (AUTO) 3.7 X 10^3 (1.8-7.8); NEUTROPHILS % (AUTO) 72 % (42-75); PLATELET COUNT 209 10^3/uL (130-400); RED CELL DISTRIBUTION WIDTH 15.9 % (10.0-14.5); WHITE BLOOD COUNT 5.2 10^3/uL (4.3-11.0)
[2019-06-06 12:50] LABS: ALBUMIN 3.7 GM/DL (3.2-4.5); BILIRUBIN,TOTAL 0.4 MG/DL (0.1-1.0); CALCIUM 8.5 MG/DL (8.5-10.1); CREATININE SERUM 4.77 MG/DL (0.60-1.30); POTASSIUM 3.9 MMOL/L (3.6-5.0); TOTAL PROTEIN 6.1 GM/DL (6.4-8.2)
--- NOTE | 2019-06-06 13:12 | NUR ---
contacted thalia Wooten rn with assisted living and advised pt care plan and need for transport.
[2019-06-06 13:20] VITALS: BP 109/52
== END 2019-06-06 13:24 | disposition home or self-care (01) ==
LOC: EDUNIT# 11:16 → ER 11:17
DX: R18.8 Other ascites (principal); I12.0 Hypertensive chronic kidney disease with stage 5 chronic kidney disease or end stage renal disease; I48.91 Unspecified atrial fibrillation; N18.6 End stage renal disease; Z99.2 Dependence on renal dialysis; Z88.0 Allergy status to penicillin; Z88.2 Allergy status to sulfonamides; Z88.8 Allergy status to other drugs, medicaments and biological substances; Z88.1 Allergy status to other antibiotic agents; Z79.01 Long term (current) 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s
CPT/HCPCS: 36415; 80053; 83690; 85025

== ENCOUNTER → 2019-06-08 | Outpatient (CLI) | payer MEDICARE, MEDICAID ==
[~2019-06-08] MED LIST changes: +TRM50T PO
--- NOTE | 2019-06-08 15:39 | Diagnostic Imaging Report ---
INDICATION: Ascites. FINDINGS: All four quadrants of the abdomen were evaluated. Right upper quadrant shows a small amount of ascites. There is moderate ascites in the right lower quadrant. Left upper quadrant demonstrates nnsz-fd-hopvzrte ascites. There is a large amount of ascites in left lower quadrant. Left lower quadrant was marked. Paracentesis was performed by Dr. Freire. IMPRESSION: Sonographic guidance for Dr. Freire for purpose of paracentesis. Dictated by: Dictated on workstation # [id number]
[2019-06-08 16:15] LABS: AMYLASE,BODY FLUID 78 U/L; GLUCOSE,BODY FLUID 104 MG/DL; LDH,BODY FLUID 105 U/L; TOTAL PROTEIN,BODY FLUID 3.8 G/DL
[2019-06-08 21:04] LABS: BODY FLUID COLOR YELLOW; BODY FLUID SOURCE PERITON
[2019-06-08 21:05] LABS: BODY FLUID APPEARENCE SLT CLDY; BODY FLUID RBC COUNT 0 /uL
[2019-06-08 21:08] LABS: BODY FLUID WBC TOTAL COUNT 100 /uL; LYMPHOCYTES,BODY FLUID 2 %
[2019-06-08 21:18] LABS: BF OTHER CELLS 98 %
--- NOTE | 2019-06-10 15:18 | OPERATIVE REPORT ---
DATE OF SERVICE: 06/08/2019 PREOPERATIVE DIAGNOSIS: Symptomatic ascites. POSTOPERATIVE DIAGNOSIS: Symptomatic ascites. PROCEDURE: Ultrasound-guided paracentesis. SURGEON: Patricio Freire DO ANESTHESIA: An 1% lidocaine 4 mL. COMPLICATIONS: None. INDICATIONS: The patient is a 78-year-old female with recurrent symptomatic ascites. She wishes to have this drained. She understands risks and benefits and wishes to proceed. Consent was signed in the chart. DESCRIPTION OF PROCEDURE: The patient was taken to the procedure room. Ultrasound was used to isolate the largest pocket for paracentesis. That area was then prepped and draped. Local anesthetic was infiltrated and 11 blade scalpel was used to make a small skin incision using the [id number] needle and catheter. This was advanced through the abdominal wall until straw colored fluid was withdrawn and the catheter was advanced and the needle was removed. A total of 2500 mL of straw colored fluid was removed and the catheter was then removed. The area was then washed and dried and sterile bandage was applied. The patient tolerated procedure well without any complications. Job ID: [id number] DocumentID: [id number] Dictated Date: 06/10/2019 11:58:02 Bar Machine Operator Date: 06/10/2019 15:17:49 Dictated By: PATRICIO FREIRE DO
== END ==
LOC: RAD 13:35
PROVIDERS: ATTEND Surgery
DX: R18.8 Other ascites (principal)
CPT/HCPCS: 49083; 82150; 82570; 82945; 83615; 84157; 87070; 87075; 87205; 88112; 88305; 89051

== ENCOUNTER 2019-06-09 09:51 | Emergency (ER) | payer MEDICARE, MEDICAID ==
[~2019-06-09] VITALS: Ht 162 cm; Wt 50.0 kg
[~2019-06-09 09:51] MED LIST changes: -TRM50T PO
[2019-06-09 10:18] LABS: BASOPHILS % (AUTO) 1 % (0-10); EOSINOPHILS # (AUTO) 0.1 10^3/uL (0.0-0.3); EOSINOPHILS % (AUTO) 3 % (0-10); HEMATOCRIT 26 % (35-52); HEMOGLOBIN 8.5 G/DL (11.5-16.0); LYMPHOCYTES # (AUTO) 0.8 X 10^3 (1.0-4.0); LYMPHOCYTES % (AUTO) 16 % (12-44); MEAN CORPUSCULAR HEMOGLOBIN 31 PG (25-34); MEAN CORPUSCULAR HGB CONC 32 G/DL (32-36); MEAN CORPUSCULAR VOLUME 97 FL (80-99); MONOCYTES # (AUTO) 0.4 X 10^3 (0.0-1.0); MONOCYTES % (AUTO) 9 % (0-12); NEUTROPHILS # (AUTO) 3.5 X 10^3 (1.8-7.8); NEUTROPHILS % (AUTO) 72 % (42-75); PLATELET COUNT 202 10^3/uL (130-400); RED CELL DISTRIBUTION WIDTH 15.7 % (10.0-14.5); WHITE BLOOD COUNT 4.8 10^3/uL (4.3-11.0)
[2019-06-09 10:35] LABS: ALBUMIN 3.5 GM/DL (3.2-4.5); BILIRUBIN,TOTAL 0.4 MG/DL (0.1-1.0); CALCIUM 8.1 MG/DL (8.5-10.1); CREATININE SERUM 5.49 MG/DL (0.60-1.30); INR 1.3 (0.8-1.4); POTASSIUM 4.5 MMOL/L (3.6-5.0); PROTHROMBIN TIME PATIENT 16.8 SEC (12.2-14.7); TOTAL PROTEIN 5.7 GM/DL (6.4-8.2)
--- NOTE | 2019-06-09 11:22 | ED General ---
General Chief Complaint: Post OP Complications/Pain Stated Complaint: PROCEDURE SITE BLEEDING Nursing Triage Note: PT TO [facility] 3 BY [facility] WITH CC OF LEAKAGE FROM A PARACINTHESIS A COUPLE DAYS AGO BY DR. TEIXEIRA. Nursing Sepsis Screen: No Definite Risk Source of Information: Patient Exam Limitations: No Limitations History of Present Illness Date Seen by Provider: Jun 09, 2019 Time Seen by Provider: 09:51 Initial Comments This 78-year-old woman presents to the emergency room from the [facility] via EMS with concerns about a persistently draining paracentesis access site. She has ascites and end-stage renal failure. Paracentesis was performed by Dr. Teixeira yesterday. She developed leaking from the site with some associated bleeding. She is not having any increased pain. She does take Eliquis. Eliquis was held before the procedure and restarted this morning. She is afebrile. Patient had dialysis on Wednesday and but did not finish either session as it seemed to create abdominal discomfort. Allergies and Home Medications Allergies Coded Allergies: povidone-iodine (Verified Allergy, Mild, 12/05/16) ranitidine (Verified Allergy, Mild, 12/05/16) soap (Verified Allergy, Mild, 12/05/16) tetracycline (Verified Allergy, Mild, 12/05/16) Penicillins (Verified Allergy, Unknown, 12/05/16) Sulfa (Sulfonamide Antibiotics) (Verified Allergy, Unknown, 12/05/16) Uncoded Allergies: NARCOTIC (Allergy, Mild, 12/01/16) Home Medications Apixaban 2.5 Mg Tablet, 2.5 MG PO BID, (Reported) Calcium Carbonate 300 Mg Tab.chew, 300 MG PO UD PRN for HEARTBURN, (Reported) Cetirizine HCl 10 Mg Tablet, 10 MG PO DAILY, (Reported) Cinacalcet HCl 90 Mg Tablet, 90 MG PO BID, (Reported) Flecainide Acetate 50 Mg Tablet, 50 MG PO BID, (Reported) Lactobacillus Rhamnosus GG 1 Each Capsule, 1 EACH PO DAILY, (Reported) Loperamide HCl 2 Mg Capsule, 2 MG PO UD PRN for DIARRHEA, (Reported) Mirtazapine 15 Mg Tablet, 7.5 MG PO DAILY, (Reported) take 1/2 of 15mg tab Multivitamin 1 Each Tablet, 1 EACH PO DAILY, (Reported) Sevelamer Carbonate 800 Mg Tablet, 1,600 MG PO TIDWM, (Reported) TAKES 2 (800 MG) TABLETS Patient Home Medication List Home Medication List Reviewed: Yes Review of Systems Review of Systems Constitutional: no symptoms reported EENTM: no symptoms reported Respiratory: no symptoms reported Cardiovascular: see HPI Gastrointestinal: see HPI Genitourinary: see HPI : No Musculoskeletal: no symptoms reported Skin: see HPI Psychiatric/Neurological: No Symptoms Reported Hematologic/Lymphatic: See HPI Immunological/Allergic: no symptoms reported Past Heqrnwc-Gdubfy-Ivitiw Hx Past Med/Social Hx: Reviewed Nursing Past Med/Soc Hx Patient Social History 2nd Hand Smoke Exposure: No Recent Foreign Travel: No Contact w/Someone Who Travel: No Recent Infectious Disease Expo: No Recent Hopitalizations: No Immunizations Up To Date Tetanus Booster (TDap): Unknown Date of Pneumonia Vaccine: Jan 04, 2012 Date of Influenza Vaccine: Dec 28, 2018 Seasonal Allergies Seasonal Allergies: No Past Medical History Surgeries: Yes (DIALYSIS GRAFT/SHUNT RIGHT UPPER ARM; RIGHT KNEE TUMOR REMOVAL ) Appendectomy, Dialysis, Hysterectomy, Orthopedic, Tonsillectomy, Vascular Surgery Respiratory: Yes COPD Currently Using CPAP: No Currently Using BIPAP: No Cardiac: Yes Atrial Fibrillation, Heart Murmur, High Cholesterol, Hypertension, Irregular Heartbeat Neurological: No Reproductive Disorders: No 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 No Pertinent Family Hx Physical Exam Vital Signs Vital Signs - First Documented 06/09/19 09:55 Temp 35.3 Pulse 52 Resp 18 B/P (MAP) 120/49 (72) Pulse Ox 96 O2 Delivery Room Air Capillary Refill : Less Than 3 Seconds Height, Weight, BMI Height: 5'7.00" Weight: 110lbs. 0oz. 49.930972wr; 19.00 BMI Method:Actual General Appearance: No Apparent Distress, WD/WN HEENT: PERRL/EOMI, Normal ENT Inspection Respiratory: Normal Breath Sounds, No Respiratory Distress Gastrointestinal: Non Tender, Soft, Distended Skin: Normal Color, Warm/Dry, Other (paracentesis access site is actively draining serous fluid with blood streaking. There is no evidence of infection or surrounding inflammation.) Progress/Results/Core Measures Suspected Sepsis Recent Fever Within 48 Hours: No Infection Criteria Present: None New/Unexplained Altered Menta: No Sepsis Screen: No Definite Risk SIRS Temperature: Pulse: 52 Respiratory Rate: 18 Laboratory Tests 06/09/19 10:15: White Blood Count 4.8 Blood Pressure 120 /49 Mean: 72 Laboratory Tests 06/09/19 10:15: Creatinine 5.49#H, INR Comment 1.3, Platelet Count 202, Total Bilirubin 0.4 Results/Orders Lab Results Laboratory Tests Test 06/09/19 10:15 Range/Units White Blood Count 4.8 4.3-11.0 10^3/uL Red Blood Count 2.71 L 4.35-5.85 10^6/uL Hemoglobin 8.5 L 11.5-16.0 G/DL Hematocrit 26 L 35-52 % Mean Corpuscular Volume 97 80-99 FL Mean Corpuscular Hemoglobin 31 25-34 PG Mean Corpuscular Hemoglobin Concent 32 32-36 G/DL Red Cell Distribution Width 15.7 H 10.0-14.5 % Platelet Count 202 130-400 10^3/uL Mean Platelet Volume 10.0 7.4-10.4 FL Neutrophils (%) (Auto) 72 42-75 % Lymphocytes (%) (Auto) 16 12-44 % Monocytes (%) (Auto) 9 0-12 % Eosinophils (%) (Auto) 3 0-10 % Basophils (%) (Auto) 1 0-10 % Neutrophils # (Auto) 3.5 1.8-7.8 X 10^3 Lymphocytes # (Auto) 0.8 L 1.0-4.0 X 10^3 Monocytes # (Auto) 0.4 0.0-1.0 X 10^3 Eosinophils # (Auto) 0.1 0.0-0.3 10^3/uL Basophils # (Auto) 0.0 0.0-0.1 10^3/uL Prothrombin Time 16.8 H 12.2-14.7 SEC INR Comment 1.3 0.8-1.4 Activated Partial Thromboplast Time 33 24-35 SEC Sodium Level 138 135-145 MMOL/L Potassium Level 4.5 3.6-5.0 MMOL/L Chloride Level 96 L 98-107 MMOL/L Carbon Dioxide Level 29 21-32 MMOL/L Anion Gap 13 5-14 MMOL/L Blood Urea Nitrogen 59 H 7-18 MG/DL Creatinine 5.49 #H 0.60-1.30 MG/DL Estimat Glomerular Filtration Rate 8 BUN/Creatinine Ratio 11 Glucose Level 80 70-105 MG/DL Calcium Level 8.1 L 8.5-10.1 MG/DL Corrected Calcium 8.5 8.5-10.1 MG/DL Total Bilirubin 0.4 0.1-1.0 MG/DL Aspartate Amino Transf (AST/SGOT) 12 5-34 U/L Alanine Aminotransferase (ALT/SGPT) 7 0-55 U/L Alkaline Phosphatase 117 40-136 U/L Total Protein 5.7 L 6.4-8.2 GM/DL Albumin 3.5 3.2-4.5 GM/DL My Orders Orders - SEGUN CORDOVA MD Cbc With Automated Diff (06/09/19 10:00) Comprehensive Metabolic Panel (06/09/19 10:00) Protime With Inr (06/09/19 10:00) Partial Thromboplastin Time (06/09/19 10:00) Vital Signs/I&O 06/09/19 06/09/19 09:55 11:35 Temp 35.3 35.3 Pulse 52 55 Resp 18 18 B/P (MAP) 120/49 (72) 114/50 (72) Pulse Ox 96 96 O2 Delivery Room Air Room Air Capillary Refill : Less Than 3 Seconds Blood Pressure Mean: 72 Progress Note : Progress Note Labs were checked. Patient did have a mild drop in hemoglobin. This was communicated with Dr. Hartman, on-call for Dr. Soliman. We are ordering a CBC to check values again in 48 hours. A prescription was provided. Case was discussed with Dr. Teixeira. He requested Eliquis be held for 48 hours and bulky pressure dressings be applied as needed. Dressing was replaced with a bulky gauze pressure dressing. Departure Impression Primary Impression: Hemorrhage complicating a procedure Additional Impressions: S/P abdominal paracentesis Anemia Qualified Codes: D64.9 - Anemia, unspecified Disposition: 01 HOME, SELF-CARE Condition: Improved Departure-Patient Inst. Decision time for Depature: 11:19 Referrals: NALLELY SOLIMAN MD (PCP/Family) Primary Care Physician Patient Instructions: NO INSTRUCTIONS GIVEN Add. Discharge Instructions: Stop Eliquis. You may resume Eliquis Wednesday morning if you have no further bleeding at that time. Have your blood drawn on June 08. Results should be called to Dr. Hartman at the [facility]. See order form. Apply bulky gauze pressure dressings until bleeding and weeping resolve. Change as frequently as necessary. Continue with dialysis as scheduled. Return to care if you have any further problems or concerns. Copy Copies To 1: PATRICIO TEIXEIRA DO Copies To 2: NALLELY SOLIMAN MD, JOSHUA T MD Jun 09, 2019 11:22
[2019-06-09 11:35] VITALS: BP 114/50
--- OUTSIDE RECORDS SUMMARY | 2019-06-11 02:56 | XMS REPORT | Clinical Summary ---
Author Author [facility] Organization [facility] Address Unknown Phone Unavailable Care Team Providers Care Concert Manager Name Role Phone Aric Escoto MD PCP Martine Blanca MD Unavailable Unavailable Source Comments Some departments are not documenting in the electronic medical record. If you d o not see the information that you expected, contact Release of Information in [facility] Information Management department at [phone] for further assistan ce in locating additional records.[facility] Allergies Comments Active Allergy Reactions Severity [...] Pre-transplant evaluation for ESRD (end stage renal d isease) 10/20/2012 Bipolar 1 disorder 10/20/2012 OCD (obsessive [...] Health Maintenance Due Date Last Done Comments MEDICARE ANNUAL WELLNESS 1940 VISIT DTAP/TDAP VACCINES (1 - 06/18/1951 Tdap) PHYSICAL (COMPREHENSIVE) 1958 EXAM SHINGLES RECOMBINANT 1990 VACCINE (1 of 2) OSTEOPOROSIS 2005 SCREENING/MONITORING PNEUMONIA (PCV13/PPSV23) 2005 VACCINES (1 of 2 - PCV13) INFLUENZA VACCINE 10/27/2018 Results Not on filefrom Last 3 Months Insurance Type Payer Benefit Subscriber ID Effective Phone Address Plan / Dates Group Medicare MEDICARE MEDICARE xxxxxxxxxx 2005-P PART A AND resent B Medicare MEDICARE MEDICARE xxxxxxxxxx 2005-P TRANSPLANT resent [place]xxxxxxx 2013- [place] Present [facility] xxxxxxxxx 05/25/2013 - [place] [facility] Bashir Transplant Self 1940 [address] [place] [phone] (Work) 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
--- OUTSIDE RECORDS SUMMARY | 2019-06-11 02:58 | XMS REPORT ---
Author Author Sriram SOLIMAN Organization [facility] Address [address] [place] [address] Care Team Providers Care Strategic Partner Development Manager Name Role Phone NALLELY SOLIMAN Unavailable PROBLEMS Type Condition ICD9-CM Code CNZ87-QL Code Onset Dates Condition S tatus SNOMED Code Problem Chronic atrial fibrillation I48.2 Ac tive 746447653 Problem Hypotension, unspecified hypotension type I95.9 Active 12297234 Problem 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 Active 386136 Problem Kidney failure N19 Active 52956 005 Problem Insomnia, unspecified type G47.00 Act stephanie 812615948 Problem Valvular heart disease I38 Active 963259 Problem End stage renal disease N18.6 Active 25269826 Problem Seasonal allergies J30.2 Active 4 14814403 Problem Viral gastritis K29.70 Active 2853 25040 Problem Recurrent major depressive disorder, in full remission F33.42 Active 609758139 Problem 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 9 Active 81318671 Problem Cardiomegaly I51.7 Active 6137530 Problem Psychophysiological insomnia F51.04 A ctive 815307191 Problem Seasonal allergic rhinitis, unspecified trigger J3 0.2 Active 692623500 Problem Atrial fibrillation, unspecified type I48.91 Active 17838473 Problem Other ascites R18.8 Active 571195 000 Problem Chronic obstructive pulmonary disease without exacerbation J44.9 Active 72645981 Problem 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.2 A ctive 398826197 Problem Unsteady gait R26.81 Active 224545 008 Problem 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 764725635 Problem Chronic fatigue R53.82 Active 5270 2003 Problem Other ascites R18.8 Active 733959 000 Problem Mixed stress and urge urinary incontinence N39.46 Active 525967103 Problem Chronic heart failure, unspecified heart failure type I50.9 Active 89064038 Problem Chronic heart failure, unspecified heart failure type I50.9 Active 22719873 ALLERGIES Substance Reaction Event Type Date Status Penicillin V Potassium Unknown Drug Allergy May, Activ e Betadine Unknown Drug Allergy May, Active narcotics avoid them Non Drug Allergy May, Active Zantac Unknown Drug Allergy May, Active Tetracycline HCl Unknown Drug Allergy May, Active Sulfamethoxazole-Trimethoprim Unknown Drug Allergy May, 9 Active ENCOUNTERS Encounter Location Date Diagnosis [place] [address] [address] May, [place] [address] [address] Apr, [place] [address] [address] Apr, 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.2 ; End stage renal disease N18.6 ; Chronic diarrhea K52.9 ; Left leg pain M79.605 and Chronic fatigue R53.82 [place] [address] [address] Apr, [place] [address] [address] Mar, [place] [address] [address] Mar, [facility] [address] [address] Mar, [place] [address] [address] Mar, [place] [address] [address] Feb, Right leg pain M79.604 [place] [address] [address] 19 Dec, 2019 Encounter for Medicare annual wellness e xam Z00.00 ; Moderate episode of recurrent major depressive disorder F33.1 ; 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.2 ; Chronic heart failure, unspecified heart failure type I50.9 ; End stage renal disease N18.6 ; Chronic obstructive pulmonary disease without exacerbation J44.9 ; Physical debility R53.81 ; Unsteady gait R26.81 ; Chronic fatigue R53.82 ; Body mass index (BMI) less than 19 Z68.1 ; Insomnia, unspecified type G47.00 ; Cardiomegaly I51.7 ; Valvular heart disease I38 and Chronic atrial fibrillation I48.2 [place] [address] [address] Jan, [place] [address] [address] Jan, [place] [address] [address] Dec, Right leg pain M79.604 ; Left flank pain R10.9 and End stage renal disease N18.6 [place] [address] [address] Dec, [place] [address] [address] Nov, [place] [address] [address] Nov, Valvular heart disease I38 ; End stage r enal disease N18.6 ; 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.2 ; Chronic heart failure, unspecified heart failure type I50.9 ; Other ascites R18.8 ; BMI less than 19,adult Z68.1 and Mixed stress and urge urinary incontinence N39.46 [place] [address] [address] Nov, [place] [address] [address] Nov, [place] [address] [address] Nov, Via [facility] [address] [place] [id number] Nov, End stage renal disease N18.6 ; Atrial f ibrillation, unspecified type I48.91 ; 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 Z79.01 ; Chronic diarrhea K52.9 ; 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.2 ; Psychophysiological insomnia F51.04 ; Moderate episode of recurrent major depressive disorder F33.1 and Seasonal allergic rhinitis, unspecified trigger J30.2 [place] [address] [place] [id number] [place] [address] Oct, [place] [address] [address] Oct, [address] [place] [address] Oct, Via [facility] [place] [address] [place] [id number] Oct, End stage renal disease N18.6 and Rectal bleeding K62.5 [place] [address] [address] [address] [place] [address] Oct, Via [facility] [employer] [address] [place] [id number] Oct, End stage renal disease N18.6 and Diarrh ea, unspecified type R19.7 [address] [place] [address] Oct, [place] [address] [address] [address] [place] [address] Oct, [place] [address] [address] [address] [place] [address] Oct, [place] [address] [address] Oct, [place] [address] [address] [address] [place] [address] Oct, Chronic diarrhea K52.9 [place] [address] [address] Oct, Chronic diarrhea K52.9 [facility] [address] [address] Sep, Chronic diarrhea K52.9 ; End stage renal disease N18.6 and Chronic atrial fibrillation I48.2 [facility] [address] [address] Sep, Chronic atrial fibrillation I48.2 ; Mode rate episode of recurrent major depressive disorder F33.1 ; 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.2 ; Valvular heart disease I38 ; Left arm swelling M79.89 and Debility R53.81 [facility] [address] [address] Sep, [facility] [address] [address] Sep, [facility] [address] [address] Sep, [facility] [address] [address] Sep, [facility] [address] [address] Sep, [facility] [address] [address] Sep, [facility] [address] [address] Aug, [facility] [address] [address] Aug, Other hypotension I95.89 and Hypovolemia E86.1 [facility] [address] [address] Aug, [facility] [address] [address] Aug, [facility] [address] [place] [id number] Aug, History of pneumonia Z87.01 and Weakness R53.1 [place] [address] [address] [address] [place] [address] Aug, [facility] [address] [address] Aug, [facility] [address] [place] [address] [address] [place] [address] Aug, [facility] [address] [address] Aug, [facility] [address] [address] July, [facility] [address] [address] July, [facility] [address] [place] [id number] July, History of pneumonia Z87.01 and 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.2 [facility] [address] [address] July, [facility] [address] [address] July, [facility] [address] [address] May, [facility] [address] [address] May, Fever R50.9 ; Viral upper respiratory tr act infection J06.9 ; Cough R05 and Seasonal allergies J30.2 [facility] [address] [address] [address] [place] [address] Apr, [facility] [address] [address] Mar, Kidney failure N19 ; 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.2 ; Moderate episode of recurrent major depressive disorder F33.1 ; Psychophysiological insomnia F51.04 and Viral gastritis K29.70 [facility] [address] [address] Mar, [place] [address] [address] Jan, [place] [address] [address] Dec, Medicare annual wellness visit, initial Z00.00 ; 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 ; End stage renal disease N18.6 ; 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.2 ; Moderate episode of recurrent major depressive disorder F33.1 ; Chronic atrial fibrillation I48.2 ; Cardiomegaly I51.7 ; Valvular heart disease I38 ; Psychophysiological insomnia F51.04 and Chronic fatigue R53.82 [place] [address] [address] Oct, [place] [address] [address] July, Seasonal allergic rhinitis, unspecified trigger J30.2 [facility] [address] [facility] [id number] [place] [address] Jun, Wheezes R06.2 ; Seasonal all ergic rhinitis, unspecified trigger J30.2 and Diarrhea, unspecified type R19.7 [place] [address] [address] May, Cough R05 and Shortness of breath R06.02 [place] [address] [address] May, Adverse effect of unspecified systemic a ntibiotic, initial encounter T36.95XA [place] [address] [address] 15 May, 2017 Adverse effect of unspecified systemic a ntibiotic, initial encounter T36.95XA ; Toxic gastroenteritis and colitis K52.1 and Cough R05 [place] [address] [address] 07 May, 2017 Shortness of breath R06.02 and Cough R05 [place] [address] [address] May, [place] [address] [address] May, Cough R05 ; Kidney failure N19 ; Atrial fibrillation, unspecified type I48.91 and Cardiomegaly I51.7 [place] [address] [address] May, Cough R05 [place] [address] [address] May, [facility] [address] [place] [id number] [place] [id number] Apr, Dental examination Z01.20 [place] [address] [address] Mar, [place] [address] [address] Mar, Hemoglobin low D64.9 [place] [address] [address] Feb, Atrial fibrillation, unspecified type I4 8.91 ; End stage renal disease N18.6 ; Psychophysiological insomnia F51.04 ; Dark stools R19.5 ; Valvular heart disease I38 and Constipation, unspecified constipation type K59.00 [place] [address] [address] 11 Feb, 2017 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.2 [place] [address] [address] 04 Feb, 2017 Depressive disorder, not elsewhere class ified F32.9 ; Anxiety state, unspecified F41.1 and Cognitive decline R41.89 [place] [address] [address] 27 Jan, 2017 Depressive disorder, not elsewhere class ified F32.9 ; Anxiety state, unspecified F41.1 and Cognitive decline R41.89 [place] [address] [address] 13 Jan, 2017 Moderate episode of recurrent major depr essive disorder F33.1 ; 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.2 and Atrial fibrillation, unspecified type I48.91 [place] [address] [address] Jan, Depressive disorder, not elsewhere class ified F32.9 ; Anxiety state, unspecified F41.1 and Cognitive decline R41.89 Via [facility] [address] [place] [id number] Dec, End stage renal disease N18.6 and Valvul ar heart disease I38 [place] [address] [address] Nov, [place] [address] [address] Nov, 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 Z 79.01 [place] [address] [address] Nov, Recurrent major depressive disorder, in full remission F33.42 ; 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.2 ; Atrial fibrillation, unspecified type I48.91 and Shaking chills R68.83 [place] [address] [address] Nov, [place] [address] [address] Nov, [place] [address] [address] Oct, 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 Z 79.01 [place] [address] [address] Oct, skilled nursing current use of anticoagulant Z 79.01 [place] [address] [address] Oct, skilled nursing current use of anticoagulant Z 79.01 [place] [address] [address] Oct, skilled nursing current use of anticoagulant Z 79.01 [place] [address] [address] Oct, skilled nursing current use of anticoagulant Z 79.01 [place] [address] [address] Oct, skilled nursing current use of anticoagulant Z 79.01 [facility] [address] [address] Oct, 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 Z 79.01 [place] [address] [address] Sep, [facility] [address] [address] Sep, 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 Z 79.01 [place] [address] [address] Sep, skilled nursing current use of anticoagulant Z 79.01 [place] [address] [address] Sep, skilled nursing current use of anticoagulant Z 79.01 [place] [address] [address] Sep, 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 Z 79.01 [place] [address] [address] Sep, 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 Z 79.01 [place] [address] [address] Sep, skilled nursing current use of anticoagulant Z 79.01 [place] [address] [address] Aug, 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 Z 79.01 [place] [address] [address] Aug, skilled nursing current use of anticoagulant Z 79.01 [place] [address] [address] Aug, skilled nursing current use of anticoagulant Z 79.01 [place] [address] [address] July, [facility] [address] [address] July, 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 Z 79.01 [facility] [address] [address] July, 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 Z 79.01 [facility] [address] [address] July, skilled nursing current use of anticoagulant Z 79.01 [place] [address] [address] July, skilled nursing current use of anticoagulant Z 79.01 [place] [address] [address] July, [facility] [address] [address] July, skilled nursing current use of anticoagulant Z 79.01 [facility] [address] [address] July, [facility] [address] [address] July, skilled nursing current use of anticoagulant Z 79.01 [place] [address] [address] Jun, skilled nursing current use of anticoagulant Z 79.01 [facility] [address] [address] Jun, 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 Z 79.01 [place] [address] [address] Jun, skilled nursing current use of anticoagulant Z 79.01 [place] [address] [address] Jun, skilled nursing current use of anticoagulant Z 79.01 [place] [address] [address] Jun, Fatigue, unspecified type R53.83 and Non -intractable vomiting with nausea, unspecified vomiting type R11.2 [place] [address] [address] Jun, 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 Z 79.01 and Non-intractable vomiting with nausea, unspecified vomiting type R11.2 [place] [address] [address] May, skilled nursing current use of anticoagulant Z 79.01 [place] [address] [address] May, skilled nursing current use of anticoagulant Z 79.01 [place] [address] [address] May, [place] [address] [address] May, 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 Z 79.01 [place] [address] [address] May, skilled nursing current use of anticoagulant Z 79.01 [place] [address] [address] May, Fall, initial encounter W19.XXXA ; Toe p ain, right M79.674 and Dizziness R42 [place] [address] [address] May, skilled nursing current use of anticoagulant Z 79.01 [place] [address] [address] May, skilled nursing current use of anticoagulant Z 79.01 [place] [address] [address] May, 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 Z 79.01 [place] [address] [address] Apr, [place] [address] [address] Apr, skilled nursing current use of anticoagulant Z 79.01 [place] [address] [address] Apr, 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 Z 79.01 [place] [address] [address] Apr, 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 Z 79.01 ; Hemodialysis- associated hypotension I95.3 ; Varicose veins of left lower extremity I83.92 and Advance directive discussed with patient Z71.89 [place] [address] [address] Mar, [place] [address] [address] Mar, skilled nursing current use of anticoagulant Z 79.01 [place] [address] [address] Mar, 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 Z 79.01 [place] [address] [address] Mar, [place] [address] [address] Mar, 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 Z 79.01 and Encounter for therapeutic drug level monitoring Z51.81 [place] [address] [address] Mar, Atrial fibrillation, unspecified type I4 8.91 [place] [address] [address] Feb, Atrial fibrillation, unspecified type I4 8.91 [place] [address] [address] Feb, Atrial fibrillation, unspecified type I4 8.91 [place] [address] [address] Feb, Chronic anticoagulation Z79.01 ; Chronic fatigue R53.82 ; Hemodialysis-associated hypotension I95.3 ; 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.2 and End stage renal disease N18.6 [place] [address] [address] Feb, [place] [address] [address] Feb, Atrial fibrillation, unspecified type I4 8.91 [place] [address] [address] Feb, [place] [address] [address] Jan, Atrial fibrillation, unspecified type I4 8.91 [place] [address] [address] Jan, Atrial fibrillation, unspecified type I4 8.91 [place] [address] [address] Jan, Atrial fibrillation, unspecified type I4 8.91 ; Insomnia, unspecified type G47.00 ; End stage renal disease N18.6 and Valvular heart disease I38 [place] [address] [address] Jan, [place] [address] [address] Jan, Atrial fibrillation, unspecified type I4 8.91 [place] [address] [address] Jan, [place] [address] [address] 08 Jan, 2016 [place] [address] [address] Dec, [place] [address] [address] Nov, Hypotension, unspecified hypotension typ e I95.9 ; Systolic ejection murmur I38 and Insomnia, unspecified type G47.00 [facility] [address] [facility] [place] [address] Oct, [facility] [address] [address] Oct, [facility] [address] [address] 07 Aug, 2015 Screening for diabetes mellitus Z13.1 ; 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 and Systolic ejection murmur I38 [place] [address] [address] July, Cough R05 IMMUNIZATIONS No Known Immunizations SOCIAL HISTORY Never Assessed REASON FOR VISIT Diarrhea/Vomiting/Cough/ fever / body ache x since last wednesday -- kenyon gibson, flu test requesting by patient's son PLAN OF CARE Activity Details Follow Up 3 Months with Josefa BETANCUR Reason: VITAL SIGNS Height 67 in 2018-06-09 Weight 117.0 lbs 2018-06-09 Temperature 98.6 degrees Fahrenheit 2018-06-09 Heart Rate 72 bpm 2018-06-09 Respiratory Rate 18 2018-06-09 BMI 18.32 kg/m2 2018-06-09 Blood pressure systolic 118 mmHg 2018-06-09 Blood pressure diastolic 70 mmHg 2018-06-09 MEDICATIONS Medication Instructions Dosage Frequency Start Date End Date Duration S tatus Metoprolol Tartrate 25 MG TAKE ONE TABLET BY MOUTH TWICE D AILY WITH FOOD 90 Active Renvela 800 MG TAKE THREE TABLETS BY MOUTH THREE TIMES DAILY 30 Active Cetirizine HCl 10 mg Orally Once a day 1 tablet 24h May, 30 day(s) Active Mirtazapine 7.5 MG Orally Once a day 1 tablet 24h Active Sensipar 90 MG Orally 2 times a day 1 tablet 12h Active RESULTS Name Result Date Reference Range INFLUENZA A & B (IN HOUSE) 2018-06-09 INFLUENZA A negative INFLUENZA B negative Control + Lot # [id number] Exp date 12/2020 PROCEDURES Procedure Date Ordered Result Body Site [facility] VISIT ESTABLISHED PATIENT June 09, 2018 INFLUENZA ASSAY W/OPTIC June 09, 2018 INSTRUCTIONS MEDICATIONS ADMINISTERED No Known Medications MEDICAL (GENERAL) HISTORY Type Description Date Medical History Decreased Kidney Function Medical History Hypertension Medical History Hyperlipidemia Medical History tank 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 use of coumadin Medical History Dialysis Surgical History tonsillectomy and adenoidectomy Surgical History appendectomy Surgical History Partial Hysterectomy Surgical History left knee replacement Hospitalization History Chest Tube-[facility] 03/2015 Hospitalization History Fluid on lungs-[facility] Hospitalization History ER -shunt malfunction 10/2016 Hospitalization History ER 12/01/2016 Hospitalization History Broken left arm and fractured pelvis 12/2016 Hospitalization History back pain - [facility] ED visit [place] [facility] 03/07/17 Hospitalization History [facility]- [place]- SOA, Fluid Overloa d 04/12/17 Hospitalization History [facility]- [place]- Bleeding/Needs sti tches 04/20/2017 Hospitalization History [facility] - Shortness of breath 05/29/17 Hospitalization History [place] 11/14
--- OUTSIDE RECORDS SUMMARY | 2019-06-11 02:58 | XMS REPORT ---
Author Author Sriram SOLIMAN Organization [facility] Address [address] [place] [address] Care Team Providers Care Radiator Repairer Name Role Phone NALLELY SOLIMAN Unavailable PROBLEMS Type Condition ICD9-CM Code AHR11-HH Code Onset Dates Condition S tatus SNOMED Code Problem Chronic atrial fibrillation I48.2 Ac tive 244665857 Problem Hypotension, unspecified hypotension type I95.9 Active 88352827 Problem 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 Active 045338 Problem Kidney failure N19 Active 71160 005 Problem Insomnia, unspecified type G47.00 Act stephanie 355411165 Problem Valvular heart disease I38 Active 324370 Problem End stage renal disease N18.6 Active 08001277 Problem Seasonal allergies J30.2 Active 4 72544810 Problem Viral gastritis K29.70 Active 2853 55985 Problem Recurrent major depressive disorder, in full remission F33.42 Active 879166287 Problem 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 9 Active 26712737 Problem Cardiomegaly I51.7 Active 0590885 Problem Psychophysiological insomnia F51.04 A ctive 307865768 Problem Seasonal allergic rhinitis, unspecified trigger J3 0.2 Active 376966943 Problem Atrial fibrillation, unspecified type I48.91 Active 40392417 Problem Other ascites R18.8 Active 377319 000 Problem Chronic obstructive pulmonary disease without exacerbation J44.9 Active 51719141 Problem 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.2 A ctive 099893207 Problem Unsteady gait R26.81 Active 706229 008 Problem 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 435278808 Problem Chronic fatigue R53.82 Active 5270 2003 Problem Other ascites R18.8 Active 607324 000 Problem Mixed stress and urge urinary incontinence N39.46 Active 919695892 Problem Chronic heart failure, unspecified heart failure type I50.9 Active 76770823 Problem Chronic heart failure, unspecified heart failure type I50.9 Active 36228492 ALLERGIES Substance Reaction Event Type Date Status Penicillin V Potassium Unknown Drug Allergy Mar, Activ e Betadine Unknown Drug Allergy Mar, Active narcotics avoid them Non Drug Allergy Mar, Active Zantac Unknown Drug Allergy Mar, Active Tetracycline HCl Unknown Drug Allergy Mar, Active Sulfamethoxazole-Trimethoprim Unknown Drug Allergy Mar, 9 Active ENCOUNTERS Encounter Location Date Diagnosis [place] [address] [address] May, [place] [address] [address] Apr, [place] [address] [address] Apr, 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.2 ; End stage renal disease N18.6 ; Chronic diarrhea K52.9 ; Left leg pain M79.605 and Chronic fatigue R53.82 [place] [address] [address] Apr, [place] [address] [address] Mar, [place] [address] [address] Mar, [facility] [address] [address] Mar, [place] [address] [address] Mar, [place] [address] [address] Feb, Right leg pain M79.604 [place] [address] [address] 19 Dec, 2019 Encounter for Medicare annual [...] disease I38 and Chronic atrial fibrillation I48.2 [place] [address] [address] Jan, [place] [address] [address] Jan, [place] [address] [address] Dec, Right leg pain M79.604 ; Left flank pain R10.9 and End stage renal disease N18.6 [place] [address] [address] Dec, [place] [address] [address] Nov, [place] [address] [address] Nov, Valvular heart disease I38 ; End stage r enal disease N18.6 ; 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.2 ; Chronic heart failure, unspecified heart failure type I50.9 ; Other ascites R18.8 ; BMI less than 19,adult Z68.1 and Mixed stress and urge urinary incontinence N39.46 [place] [address] [address] Nov, [place] [address] [address] Nov, [place] [address] [address] Nov, [facility] [address] [place] [id number] Nov, End stage renal disease N18.6 ; Atrial f ibrillation, unspecified type I48.91 ; 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 technician 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 Z79.01 ; Chronic diarrhea K52.9 ; 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.2 ; Psychophysiological insomnia F51.04 ; Moderate episode of recurrent major depressive disorder F33.1 and Seasonal allergic rhinitis, unspecified trigger J30.2 [place] [address] [place] [address] [place] [address] Oct, [place] [address] [address] Oct, [address] [place] [address] Oct, [facility] [address] [place] [id number] Oct, End stage renal disease N18.6 and Rectal bleeding K62.5 [place] [address] [place] [address] [place] [address] Oct, [facility] [employer] [address] [place] [id number] Oct, End stage renal disease N18.6 and Diarrh ea, unspecified type R19.7 [address] [place] [address] Oct, [place] [address] [place] [address] [place] [address] Oct, [place] [address] [place] [address] [place] [address] Oct, [place] [address] [address] Oct, [place] [address] [place] [address] [address] [place] [address] Oct, Chronic diarrhea K52.9 [place] [address] [address] Oct, Chronic diarrhea K52.9 [facility] [address] [address] Sep, Chronic diarrhea K52.9 ; End stage renal disease N18.6 and Chronic atrial fibrillation I48.2 [facility] [address] [address] Sep, Chronic atrial fibrillation I48.2 ; Mode rate episode of recurrent major depressive disorder F33.1 ; 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.2 ; Valvular heart disease I38 ; Left arm swelling M79.[address] [facility] [address] [address] Sep, [facility] [address] [address] Sep, [facility] [address] [address] Sep, [facility] [address] [address] Sep, [facility] [address] [address] Sep, [facility] [address] [address] Sep, [facility] [address] [address] Aug, [facility] [address] [address] Aug, Other hypotension I95.[address] [facility] [address] [address] Aug, [facility] [address] [address] Aug, [facility] [address] [place] [id number] Aug, History of pneumonia Z87.01 and Weakness R53.1 [place] [address] [place] [address] [address] [place] [address] Aug, [facility] [address] [address] Aug, [facility] [address] [address] [address] [place] [address] Aug, [facility] [address] [address] Aug, [facility] [address] [address] July, [facility] [address] [address] July, [facility] [address] [place] [id number] July, History of pneumonia Z87.01 and 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.2 [facility] [address] [address] July, [facility] [address] [address] July, [facility] [address] [address] May, [facility] [address] [address] May, Fever R50.9 ; Viral upper respiratory tr act infection J06.9 ; Cough R05 and Seasonal allergies J30.2 [facility] [address] [place] [address] [place] [address] Apr, [facility] [address] [address] Mar, Kidney failure N19 ; 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.2 ; Moderate episode of recurrent major depressive disorder F33.1 ; Psychophysiological insomnia F51.04 and Viral gastritis K29.70 [facility] [address] [address] Mar, [place] [address] [address] Jan, [place] [address] [address] Dec, Medicare annual wellness visit, initial Z00.00 ; 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 ; End stage renal disease N18.6 ; 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.2 ; Moderate episode of recurrent major depressive disorder F33.1 ; Chronic atrial fibrillation I48.2 ; Cardiomegaly I51.7 ; Valvular heart disease I38 ; Psychophysiological insomnia F51.04 and Chronic fatigue R53.82 [place] [address] [address] Oct, [place] [address] [address] July, Seasonal allergic rhinitis, unspecified trigger J30.2 [facility] [address] [facility] [id number] [place] [address] Jun, Wheezes R06.2 ; Seasonal all ergic rhinitis, unspecified trigger J30.2 and Diarrhea, unspecified type R19.7 [place] [address] [address] May, Cough R05 and Shortness of breath R06.02 [place] [address] [address] May, Adverse effect of unspecified systemic a ntibiotic, initial encounter T36.95XA [place] [address] [address] 15 May, 2017 Adverse effect of unspecified systemic a ntibiotic, initial encounter T36.95XA ; Toxic gastroenteritis and colitis K52.1 and Cough R05 [place] [address] [address] 07 May, 2017 Shortness of breath R06.02 and Cough R05 [place] [address] [address] May, [place] [address] [address] May, Cough R05 ; Kidney failure N19 ; Atrial fibrillation, unspecified type I48.91 and Cardiomegaly I51.7 [place] [address] [address] May, Cough R05 [place] [address] [address] May, [facility] [address] [place] [id number] [place] [id number] Apr, Dental examination Z01.20 [place] [address] [address] Mar, [place] [address] [address] Mar, Hemoglobin low D64.9 [place] [address] [address] Feb, Atrial fibrillation, unspecified type I4 8.91 ; End stage renal disease N18.6 ; Psychophysiological insomnia F51.04 ; Dark stools R19.5 ; Valvular heart disease I38 and Constipation, unspecified constipation type K59.00 [place] [address] [address] 11 Feb, 2017 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.2 [place] [address] [address] 04 Feb, 2017 Depressive disorder, not elsewhere class ified F32.9 ; Anxiety state, unspecified F41.1 and Cognitive decline R41.89 [place] [address] [address] 27 Jan, 2017 Depressive disorder, not elsewhere class ified F32.9 ; Anxiety state, unspecified F41.1 and Cognitive decline R41.89 [place] [address] [address] 13 Jan, 2017 Moderate episode of recurrent major depr essive disorder F33.1 ; 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.2 and Atrial fibrillation, unspecified type I48.91 [place] [address] [address] Jan, Depressive disorder, not elsewhere class ified F32.9 ; Anxiety state, unspecified F41.1 and Cognitive decline R41.89 [facility] [address] [place] [id number] Dec, End stage renal disease N18.6 and Valvul ar heart disease I38 [place] [address] [address] Nov, [place] [address] [address] Nov, termite technician current use of anticoagulant Z 79.01 [place] [address] [address] Nov, Recurrent major depressive disorder, in full remission F33.42 ; 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.2 ; Atrial fibrillation, unspecified type I48.91 and Shaking chills R68.83 [place] [address] [address] Nov, [place] [address] [address] Nov, [place] [address] [address] Oct, termite technician current use of anticoagulant Z 79.01 [place] [address] [address] Oct, alf current use of anticoagulant Z 79.01 [place] [address] [address] Oct, alf current use of anticoagulant Z 79.01 [place] [address] [address] Oct, alf current use of anticoagulant Z 79.01 [place] [address] [address] Oct, alf current use of anticoagulant Z 79.01 [place] [address] [address] Oct, alf current use of anticoagulant Z 79.01 [facility] [address] [address] Oct, termite technician current use of anticoagulant Z 79.01 [place] [address] [address] Sep, [facility] [address] [address] Sep, termite technician current use of anticoagulant Z 79.01 [place] [address] [address] Sep, alf current use of anticoagulant Z 79.01 [place] [address] [address] Sep, alf current use of anticoagulant Z 79.01 [place] [address] [address] Sep, termite technician current use of anticoagulant Z 79.01 [place] [address] [address] Sep, termite technician current use of anticoagulant Z 79.01 [place] [address] [address] Sep, alf current use of anticoagulant Z 79.01 [place] [address] [address] Aug, termite technician current use of anticoagulant Z 79.01 [place] [address] [address] Aug, alf current use of anticoagulant Z 79.01 [place] [address] [address] Aug, alf current use of anticoagulant Z 79.01 [place] [address] [address] July, [facility] [address] [address] July, termite technician current use of anticoagulant Z 79.01 [facility] [address] [address] July, termite technician current use of anticoagulant Z 79.01 [facility] [address] [address] July, alf current use of anticoagulant Z 79.01 [place] [address] [address] July, alf current use of anticoagulant Z 79.01 [place] [address] [address] July, [facility] [address] [address] July, alf current use of anticoagulant Z 79.01 [facility] [address] [address] July, [facility] [address] [address] July, alf current use of anticoagulant Z 79.01 [place] [address] [address] Jun, alf current use of anticoagulant Z 79.01 [facility] [address] [address] Jun, termite technician current use of anticoagulant Z 79.01 [place] [address] [address] Jun, alf current use of anticoagulant Z 79.01 [place] [address] [address] Jun, alf current use of anticoagulant Z 79.01 [place] [address] [address] Jun, Fatigue, unspecified type R53.83 and Non -intractable vomiting with nausea, unspecified vomiting type R11.2 [place] [address] [address] Jun, termite technician current use of anticoagulant Z 79.01 and Non-intractable vomiting with nausea, unspecified vomiting type R11.2 [place] [address] [address] May, alf current use of anticoagulant Z 79.01 [place] [address] [address] May, alf current use of anticoagulant Z 79.01 [place] [address] [address] May, [place] [address] [address] May, termite technician current use of anticoagulant Z 79.01 [place] [address] [address] May, alf current use of anticoagulant Z 79.01 [place] [address] [address] May, Fall, initial encounter W19.XXXA ; Toe p ain, right M79.674 and Dizziness R42 [place] [address] [address] May, alf current use of anticoagulant Z 79.01 [place] [address] [address] May, alf current use of anticoagulant Z 79.01 [place] [address] [address] May, termite technician current use of anticoagulant Z 79.01 [place] [address] [address] Apr, [place] [address] [address] Apr, alf current use of anticoagulant Z 79.01 [place] [address] [address] Apr, termite technician current use of anticoagulant Z 79.01 [place] [address] [address] Apr, termite technician current use of anticoagulant Z 79.01 ; Hemodialysis- associated hypotension I95.3 ; Varicose veins of left lower extremity I83.92 and Advance directive discussed with patient Z71.89 [place] [address] [address] Mar, [place] [address] [address] Mar, alf current use of anticoagulant Z 79.01 [place] [address] [address] Mar, termite technician current use of anticoagulant Z 79.01 [place] [address] [address] Mar, [place] [address] [address] Mar, termite technician current use of anticoagulant Z 79.01 and Encounter for therapeutic drug level monitoring Z51.81 [place] [address] [address] Mar, Atrial fibrillation, unspecified type I4 8.91 [place] [address] [address] Feb, Atrial fibrillation, unspecified type I4 8.91 [place] [address] [address] Feb, Atrial fibrillation, unspecified type I4 8.91 [place] [address] [address] Feb, Chronic anticoagulation Z79.01 ; Chronic fatigue R53.82 ; Hemodialysis-associated hypotension I95.3 ; 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.2 and End stage renal disease N18.6 [place] [address] [address] Feb, [place] [address] [address] Feb, Atrial fibrillation, unspecified type I4 8.91 [place] [address] [address] Feb, [place] [address] [address] Jan, Atrial fibrillation, unspecified type I4 8.91 [place] [address] [address] Jan, Atrial fibrillation, unspecified type I4 8.91 [place] [address] [address] Jan, Atrial fibrillation, unspecified type I4 8.91 ; Insomnia, unspecified type G47.00 ; End stage renal disease N18.6 and Valvular heart disease I38 [place] [address] [address] Jan, [place] [address] [address] Jan, Atrial fibrillation, unspecified type I4 8.91 [place] [address] [address] Jan, [place] [address] [address] 08 Jan, 2016 [place] [address] [address] Dec, [place] [address] [address] Nov, Hypotension, unspecified hypotension typ e I95.9 ; Systolic ejection murmur I38 and Insomnia, unspecified type G47.00 [place] [id number] [id number] [place] [address] Oct, [facility] [address] [address] Oct, [facility] [address] [address] [id number] [place] [address] Aug, Screening for diabetes mellitus Z13.1 ; 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 and Systolic ejection murmur I38 [place] [address] [address] July, Cough R05 IMMUNIZATIONS No Known Immunizations SOCIAL HISTORY Never Assessed REASON FOR VISIT kidney failure fu -- kenyon gibson PLAN OF CARE Activity Details Follow Up 3 Months with Josefa BETANCUR Reason: VITAL SIGNS Height 67 in 2018-04-28 Weight 118.0 lbs 2018-04-28 Temperature 97.7 degrees Fahrenheit 2018-04-28 BMI 18.48 kg/m2 2018-04-28 Blood pressure systolic 116 mmHg 2018-04-28 Blood pressure diastolic 70 mmHg 2018-04-28 MEDICATIONS Medication Instructions Dosage Frequency Start Date End Date Duration S tatus Albuterol Sulfate 0.63 MG/3ML Inhalation every 4-66 hrs 3 ml as nee ded Jun, 10 days Not-Taking Mirtazapine 7.5 MG Orally Once a day 1 tablet 24h Active Sensipar 90 MG Orally 2 times a day 1 tablet 12h Active Loratadine 10 mg Orally Once a day 1 tablet 24h July, 30 day(s) Active Aspirin 81 MG Orally Once a day 1 tablet 24h Jan, 30 day(s) Not-Taking Metoprolol Tartrate 25 MG TAKE ONE TABLET BY MOUTH TWICE D AILY WITH FOOD 90 Active Renvela 800 MG TAKE THREE TABLETS BY MOUTH THREE TIMES DAILY 30 Active CompAir Nebulizer - as directed Jun, 10 days Not-Taking Cefdinir Not-Taking RESULTS No Results PROCEDURES Procedure Date Ordered Result Body Site [facility] VISIT ESTABLISHED PATIENT Apr 28, 2018 INSTRUCTIONS MEDICATIONS ADMINISTERED No Known Medications MEDICAL (GENERAL) HISTORY Type Description Date Medical History Decreased Kidney Function Medical History Hypertension Medical History Hyperlipidemia Medical History alf use of coumadin Medical History Dialysis Surgical History tonsillectomy and adenoidectomy Surgical History appendectomy Surgical History Partial Hysterectomy Surgical History left knee replacement [facility] Hospitalization History Fluid on lungs-[facility] Hospitalization History ER -shunt malfunction 10/2016 Hospitalization History ER 12/01/2016 Hospitalization History Broken left arm and fractured pelvis 12/2016 Hospitalization History back pain - [facility] ED visit [facility] K S 03/07/17 Hospitalization History [facility] ER- [facility]- SOA, Fluid Overloa d 04/12/17 Hospitalization History ER- [facility]- Bleeding/Needs sti tches 04/20/2017 Hospitalization History [facility] - Shortness of breath 05/29/17 Hospitalization History cherelle 11/14
--- OUTSIDE RECORDS SUMMARY | 2019-06-11 02:59 | XMS REPORT ---
Author Author Sriram SOLIMAN Organization [facility] Address [address] [place] [address] Care Team Providers Care Mailroom Manager Name Role Phone NALLELY SOLIMAN Unavailable PROBLEMS Type Condition ICD9-CM Code [id number] Code Onset Dates Condition S tatus SNOMED Code Problem Chronic atrial fibrillation I48.2 Ac tive 773483339 Problem Hypotension, unspecified hypotension type I95.9 Active 14837756 Problem 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 Active 305465 Problem Kidney failure N19 Active 93205 005 Problem Insomnia, unspecified type G47.00 Act stephanie 760199307 Problem Valvular heart disease I38 Active 659920 Problem End stage renal disease N18.6 Active 20287600 Problem Seasonal allergies J30.2 Active 4 87708735 Problem Viral gastritis K29.70 Active 2853 79946 Problem Recurrent major depressive disorder, in full remission F33.42 Active 485403132 Problem skilled nursing current use of anticoagulant Z79.01 Active 668178582 Problem Anxiety state, unspecified F41.1 Act stephanie 869899863 Problem Moderate episode of recurrent major depressive disorder F33.1 Active 524150762 Problem Constipation, unspecified constipation type K59.00 Active 92505414 Problem Depressive disorder, not elsewhere classified F32. 9 Active 36674613 Problem Cardiomegaly I51.7 Active 2837934 Problem Psychophysiological insomnia F51.04 A ctive 401998800 Problem Seasonal allergic rhinitis, unspecified trigger J3 0.2 Active 383030173 Problem Atrial fibrillation, unspecified type I48.91 Active 16592352 Problem Other ascites R18.8 Active 553914 000 Problem Chronic obstructive pulmonary disease without exacerbation J44.9 Active 68185265 Problem 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.2 A ctive 888836296 Problem Unsteady gait R26.81 Active 950029 008 Problem 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 553486773 Problem Chronic fatigue R53.82 Active 5270 2003 Problem Other ascites R18.8 Active 484392 000 Problem Mixed stress and urge urinary incontinence N39.46 Active 161373428 Problem Chronic heart failure, unspecified heart failure type I50.9 Active 63361562 Problem Chronic heart failure, unspecified heart failure type I50.9 Active 01827130 ALLERGIES No Information ENCOUNTERS Encounter Location Date Diagnosis [facility] [id number] [place] [address] Apr, [facility] [address] [address] Mar, [facility] [address] [address] Mar, [facility] [address] [address] Mar, [facility] [address] [address] Mar, [facility] [address] [address] Feb, Right leg pain M79.604 [place] [address] [address] Feb, Encounter for Medicare annual wellness e xam [...] disease I38 and Chronic atrial fibrillation I48.2 [place] [id number] [place] [address] Jan, [facility] [id number] [place] [address] Jan, [facility] [id number] [place] [address] Dec, Right leg pain M79.604 ; Left flank pain R10.9 and End stage renal disease N18.6 [place] [address] [address] Dec, [place] [address] [address] Nov, [place] [address] [address] Nov, Valvular heart disease I38 ; End stage r enal disease N18.6 ; Dependence on renal dialysis Z99.2 ; Chronic heart failure, unspecified heart failure type I50.9 ; Other ascites R18.8 ; BMI less than 19,adult Z68.1 and Mixed stress and urge urinary incontinence N39.[address] [address] Nov, [place] [address] [address] Nov, [place] [address] [address] Nov, [facility] [address] [place] [id number] Nov, End stage renal disease N18.6 ; Atrial f ibrillation, unspecified type I48.91 ; 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 ; Chronic diarrhea K52.9 ; Dependence on renal dialysis Z99.2 ; Psychophysiological insomnia F51.04 ; Moderate episode of recurrent major depressive disorder F33.1 and Seasonal allergic rhinitis, unspecified trigger J30.[address] [address] Oct, [place] [address] [address] Oct, [facility] [place] [address] [place] [address] Oct, [facility] [address] [place] [id number] Oct, End stage renal disease N18.6 and Rectal bleeding K62.5 [facility] [address] [address] Oct, [facility] [address] [place] [id number] Oct, End stage renal disease N18.6 and Diarrh ea, unspecified type R19.[address] [place] [address] Oct, [facility] [address] [address] Oct, [facility] [address] [address] Oct, [facility] [address] [address] Oct, [facility] [address] [address] Oct, Chronic diarrhea K52.9 [facility] [address] [address] Oct, Chronic diarrhea K52.9 [facility] [address] [address] Sep, Chronic diarrhea K52.9 ; End stage renal disease N18.6 and Chronic atrial fibrillation I48.2 [facility] [address] [address] Sep, Chronic atrial fibrillation I48.2 ; Mode rate episode of recurrent major depressive disorder F33.1 ; Dependence on renal dialysis Z99.2 ; Valvular heart disease I38 ; Left arm swelling M79.89 and Debility R53.81 [facility] [id number] [place] [address] Sep, [facility] [address] [address] Sep, [facility] [id number] [place] [address] Sep, [facility] [id number] [place] [address] Sep, [facility] [id number] [place] [address] Sep, [facility] [id number] [place] [address] Sep, [facility] [id number] [place] [address] Aug, [facility] [id number] [place] [address] Aug, Other hypotension I95.89 and Hypovolemia E86.1 [facility] [address] [place] [id number] Aug, [facility] [id number] [place] [address] Aug, [facility] [id number] [place] [address] Aug, [facility] [address] [place] [id number] Aug, History of pneumonia Z87.01 and Weakness R53.1 [facility] [id number] [place] [address] Aug, [facility] [id number] [place] [address] Aug, [facility] [id number] [place] [address] Aug, [facility] [id number] [place] [address] Aug, [facility] [id number] [place] [address] July, [facility] [id number] [place] [address] July, [facility] [address] [place] [id number] July, History of pneumonia Z87.01 and Dependence on renal dialysis Z99.2 [place] [address] [address] July, [place] [address] [address] July, [place] [address] [address] May, [place] [address] [address] May, Fever R50.9 ; Viral upper respiratory tr act infection J06.9 ; Cough R05 and Seasonal allergies J30.2 [place] [address] [address] Apr, [place] [address] [address] Mar, Kidney failure N19 ; Dependence on renal dialysis Z99.2 ; Moderate episode of recurrent major depressive disorder F33.1 ; Psychophysiological insomnia F51.04 and Viral gastritis K29.70 [place] [address] [address] Mar, [place] [address] [address] Jan, [place] [address] [address] Dec, Medicare annual wellness visit, initial Z00.00 ; 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 ; End stage renal disease N18.6 ; Dependence on renal dialysis Z99.2 ; Moderate episode of recurrent major depressive disorder F33.1 ; Chronic atrial fibrillation I48.2 ; Cardiomegaly I51.7 ; Valvular heart disease I38 ; Psychophysiological insomnia F51.04 and Chronic fatigue R53.82 [place] [address] [address] Oct, [place] [id number] [place] [address] July, Seasonal allergic rhinitis, unspecified trigger J30.[address] [facility] [address] [facility] [id number] [place] [address] Jun, Wheezes R06.2 ; Seasonal all ergic rhinitis, unspecified trigger J30.2 and Diarrhea, unspecified type R19.7 [facility] [address] [address] May, Cough R05 and Shortness of breath R06.02 [place] [address] [address] May, Adverse effect of unspecified systemic a ntibiotic, initial encounter T36.95XA [place] [address] [address] May, Adverse effect of unspecified systemic a ntibiotic, initial encounter T36.95XA ; Toxic gastroenteritis and colitis K52.1 and Cough R05 [facility] [id number] [place] [address] May, Shortness of breath R06.02 and Cough R05 [place] [id number] [place] [address] May, [place] [address] [address] May, Cough R05 ; Kidney failure N19 ; Atrial fibrillation, unspecified type I48.91 and Cardiomegaly I51.7 [facility] [id number] [place] [address] May, Cough R05 [facility] [address] [address] May, [facility] [address] [facility] [place] [id number] Apr, Dental examination Z01.20 [place] [address] [address] Mar, [place] [address] [address] Mar, Hemoglobin low D64.[address] [address] Feb, Atrial fibrillation, unspecified type I4 8.91 ; End stage renal disease N18.6 ; Psychophysiological insomnia F51.04 ; Dark stools R19.5 ; Valvular heart disease I38 and Constipation, unspecified constipation type K59.00 [place] [address] [address] Feb, Dependence on renal dialysis Z99.[address] [address] Feb, Depressive disorder, not elsewhere class ified F32.9 ; Anxiety state, unspecified F41.1 and Cognitive decline R41.[address] [address] Jan, Depressive disorder, not elsewhere class ified F32.9 ; Anxiety state, unspecified F41.1 and Cognitive decline R41.[address] [address] Jan, Moderate episode of recurrent major depr essive disorder F33.1 ; Dependence on renal dialysis Z99.2 and Atrial fibrillation, unspecified type I48.91 [place] [address] [address] Jan, Depressive disorder, not elsewhere class ified F32.9 ; Anxiety state, unspecified F41.1 and Cognitive decline R41.89 [facility] [address] [place] [id number] Dec, End stage renal disease N18.6 and Valvul ar heart disease I38 [address] [address] Nov, [address] [address] Nov, 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 79.01 [place] [address] [address] Nov, Recurrent major depressive disorder, in full remission F33.42 ; Dependence on renal dialysis Z99.2 ; Atrial fibrillation, unspecified type I48.91 and Shaking chills R68.83 [place] [address] [address] Nov, [place] [address] [address] Nov, [place] [address] [address] Oct, skilled nursing current use of anticoagulant Z 79.01 [place] [address] [address] Oct, 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 79.01 [place] [address] [address] Oct, skilled nursing current use of anticoagulant Z 79.01 [place] [address] [address] Oct, skilled nursing current use of anticoagulant Z 79.01 [place] [address] [address] Oct, 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 79.01 [place] [address] [address] Oct, 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 79.01 [place] [address] [address] Oct, skilled nursing current use of anticoagulant Z 79.01 [place] [address] [address] Sep, [place] [address] [address] Sep, 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 79.01 [place] [address] [address] 20 Sep, 2016 skilled nursing current use of anticoagulant Z 79.01 [place] [address] [address] 14 Sep, 2016 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 79.01 [place] [address] [address] 14 Sep, 2016 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 79.01 [place] [address] [address] Sep, skilled nursing current use of anticoagulant Z 79.01 [place] [address] [address] Sep, 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 79.01 [place] [address] [address] Aug, 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 79.01 [place] [address] [address] Aug, 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 79.01 [place] [address] [address] Aug, skilled nursing current use of anticoagulant Z 79.01 [place] [address] [address] July, [place] [address] [address] July, 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 79.01 [place] [address] [address] July, skilled nursing current use of anticoagulant Z 79.01 [place] [address] [address] July, skilled nursing current use of anticoagulant Z 79.01 [place] [address] [address] July, skilled nursing current use of anticoagulant Z 79.01 [place] [address] [address] July, [place] [address] [address] July, skilled nursing current use of anticoagulant Z 79.01 [place] [address] [address] July, [place] [address] [address] July, 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 79.01 [place] [address] [address] Jun, skilled nursing current use of anticoagulant Z 79.01 [place] [address] [address] Jun, 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 79.01 [place] [address] [address] Jun, 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 79.01 [place] [address] [address] Jun, skilled nursing current use of anticoagulant Z 79.01 [place] [address] [address] Jun, Fatigue, unspecified type R53.83 and Non -intractable vomiting with nausea, unspecified vomiting type R11.2 [place] [address] [address] Jun, 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 79.01 and Non-intractable vomiting with nausea, unspecified vomiting type R11.2 [place] [address] [address] May, 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 79.01 [place] [address] [address] May, 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 79.01 [place] [address] [address] May, [place] [address] [address] May, skilled nursing current use of anticoagulant Z 79.01 [place] [address] [address] May, 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 79.01 [place] [address] [address] May, Fall, initial encounter W19.XXXA ; Toe p ain, right M79.674 and Dizziness R42 [place] [address] [address] May, skilled nursing current use of anticoagulant Z 79.01 [place] [address] [address] May, skilled nursing current use of anticoagulant Z 79.01 [place] [address] [address] May, skilled nursing current use of anticoagulant Z 79.01 [place] [address] [address] Apr, [place] [address] [address] Apr, skilled nursing current use of anticoagulant Z 79.01 [place] [address] [address] Apr, 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 79.01 [place] [address] [address] Apr, 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 79.01 ; Hemodialysis- associated hypotension I95.3 ; Varicose veins of left lower extremity I83.92 and Advance directive discussed with patient Z71.89 [place] [address] [address] Mar, [place] [id number] [place] [address] Mar, skilled nursing current use of anticoagulant Z 79.01 [place] [id number] [place] [address] Mar, skilled nursing current use of anticoagulant Z 79.01 [place] [id number] [place] [address] Mar, [place] [address] [address] Mar, skilled nursing current use of anticoagulant Z 79.01 and Encounter for therapeutic drug level monitoring Z51.81 [place] [address] [address] Mar, Atrial fibrillation, unspecified type I4 8.91 [place] [address] [address] Feb, Atrial fibrillation, unspecified type I4 8.91 [place] [address] [address] Feb, Atrial fibrillation, unspecified type I4 8.91 [place] [address] [address] Feb, Chronic anticoagulation Z79.01 ; Chronic fatigue R53.82 ; Hemodialysis-associated hypotension I95.3 ; Dependence on renal dialysis Z99.2 and End stage renal disease N18.6 [place] [address] [address] Feb, [place] [address] [address] Feb, Atrial fibrillation, unspecified type I4 8.91 [place] [address] [address] Feb, [place] [address] [address] Jan, Atrial fibrillation, unspecified type I4 8.91 [place] [address] [address] Jan, Atrial fibrillation, unspecified type I4 8.91 [place] [address] [address] Jan, Atrial fibrillation, unspecified type I4 8.91 ; Insomnia, unspecified type G47.00 ; End stage renal disease N18.6 and Valvular heart disease I38 [place] [address] [address] Jan, [place] [address] [address] Jan, Atrial fibrillation, unspecified type I4 8.91 [place] [address] [address] Jan, [place] [address] [address] Jan, [place] [address] [address] Dec, [address] [address] Nov, Hypotension, unspecified hypotension typ e I95.9 ; Systolic ejection murmur I38 and Insomnia, unspecified type G47.[address] [address] Oct, [address] [address] Oct, [address] [address] Aug, Screening for diabetes mellitus Z13.1 ; 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 and Systolic ejection murmur I38 [address] [address] July, Cough R05 IMMUNIZATIONS No Known Immunizations SOCIAL HISTORY Never Assessed REASON FOR VISIT FYI PLAN OF CARE VITAL SIGNS MEDICATIONS Unknown Medications RESULTS No Results PROCEDURES No Known procedures INSTRUCTIONS MEDICATIONS ADMINISTERED No Known Medications MEDICAL (GENERAL) HISTORY Type Description Date Medical History Decreased Kidney Function Medical History Hypertension Medical History Hyperlipidemia 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 Medical History Dialysis Surgical History tonsillectomy and adenoidectomy Surgical History appendectomy Surgical History Partial Hysterectomy Surgical History left knee replacement Hospitalization History [facility]/2015 Hospitalization History Fluid on lungs-[facility] Hospitalization History ER -shunt malfunction 10/2016 Hospitalization History ER 12/01/2016 Hospitalization History Broken left arm and fractured pelvis 12/2016 Hospitalization History back pain - [facility] ED visit [place] [facility] 03/07/17 Hospitalization History [facility]- [place]- SOA, Fluid Overloa d 04/12/17 Hospitalization History [facility]- [place]- Bleeding/Needs sti tches 04/20/2017 Hospitalization History [facility] - Shortness of breath 05/29/17 Hospitalization History cherelle 11/14
--- OUTSIDE RECORDS SUMMARY | 2019-06-11 03:01 | XMS REPORT | Continuity of Care Document ---
Author Organization Unknown Address Unknown Phone Unavailable Allergies Active Description Code Type Severity Reaction Onset Reported/Identified Relationship to Patient Clinical Status Yes No Known Drug Allergies [id number] Drug Allergy Unknown N/A 02/03/2016 Yes NARCOTIC NARCOTIC Mild N/A 12/01/2016 Yes povidone-iodine [id number] D rug Allergy Mild N/A 12/05/2016 Yes ranitidine [id number] Drug Allerg y Mild N/A 12/05/2016 Yes soap [id number] Drug Allergy Mild N/A 12/05/2016 Yes tetracycline [id number] Drug Allergy Mild N/A 12/05/2016 Yes Penicillins [id number] Drug Aller gy Unknown N/A 12/05/2016 Yes Sulfa (Sulfonamide Antibiotics) [id number] Drug Allergy Unknown N/A 017 Medications There is no data. 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 PULMONARY HYPERTENSION 02/04/2016 NALLELY SOLIMAN MD, Ot I48.9 1 UNSPECIFIED ATRIAL FIBRILLATION 02/04/2016 NALLELY SOLIMAN MD, Ot I50.3 1 ACUTE DIASTOLIC (CONGESTIVE) HEART FAILU 02/04/2016 NALLELY SOLIMAN MD, Ot K85.9 0 ACUTE PANCREATITIS WITHOUT NECROSIS OR I 02/04/2016 NALLELY SOLIMAN MD, Ot N18.6 END STAGE RENAL DISEASE 02/04/2016 GAULT MD, NALLELY R Ot R01.1 CARDIAC MURMUR, UNSPECIFIED 02/04/2016 NALLELY SOLIMAN MD R Ot 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 ON RENAL DIALYSIS 02/12/2016 SANDRA MASON MD Ot F41.9 ANXIETY DISORDER, UNSPECIFIED 02/12/2016 SANDRA MASON MD D Ot I12.0 HYP CHR KIDNEY DISEASE W STAGE 5 CHR KID 02/12/2016 SANDRA MASON MD Ot I48.2 CHRONIC ATRIAL FIBRILLATION 02/12/2016 SANDRA MASON MD Ot I51.7 CARDIOMEGALY 02/12/2016 SANDRA MASON MD Ot N18.6 END STAGE RENAL DISEASE 02/12/2016 SANDRA MASON MD Ot R07.9 CHEST PAIN, UNSPECIFIED 02/12/2016 SANDRA MASON MD Ot Z79.01 HIGH HEEL BUILDER (CURRENT) USE OF ANTICOAGULANT 02/12/2016 SANDRA MASON MD Ot Z79.899 OTHER HIGH HEEL BUILDER (CURRENT) DRUG THERAPY 02/12/2016 SANDRA MASON MD [...] CHEST PAIN, UNSPECIFIED 02/13/2016 SANDRA MASON MD D Ot Z79.01 HIGH HEEL BUILDER (CURRENT) USE OF ANTICOAGULANT 02/13/2016 SANDRA MASON MD Ot Z79.899 OTHER HIGH HEEL BUILDER (CURRENT) DRUG THERAPY 02/13/2016 SANDRA MASON MD D Ot 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 ON RENAL DIALYSIS 05/20/2016 Ranjit ARORA MD Ot I27 .2 OTHER SECONDARY PULMONARY HYPERTENSION 05/20/2016 Ranjit ARORA MD Ot I35 .1 NONRHEUMATIC AORTIC (VALVE) INSUFFICIENC 05/20/2016 Ranjit ARORA MD Ot I48.91 UNSPECIFIED ATRIAL FIBRILLATION 05/26/2016 Ranjit ARORA MD Ot I27 .2 OTHER SECONDARY PULMONARY HYPERTENSION 05/26/2016 Ranjit ARORA MD Ot I35 .1 NONRHEUMATIC AORTIC (VALVE) INSUFFICIENC 05/26/2016 Ranjit ARORA MD Ot I48.91 UNSPECIFIED ATRIAL FIBRILLATION 06/30/2016 Ranjit ARORA MD Ot I27 .2 OTHER SECONDARY PULMONARY HYPERTENSION 06/30/2016 Ranjit ARORA MD Ot I35 .1 NONRHEUMATIC AORTIC (VALVE) INSUFFICIENC 06/30/2016 Ranjit ARORA MD Ot I48.91 UNSPECIFIED ATRIAL FIBRILLATION 10/25/2016 ENRICO LINDSEY MD Ot D64. 9 ANEMIA, UNSPECIFIED 10/25/2016 ENRICO LINDSEY MD Ot N18. 6 END STAGE RENAL DISEASE 10/25/2016 ENRICO LINDSEY MD Ot T82.591A [facility] COMPL OF SURGICALLY CREATED ARTERIO 10/25/2016 ENRICO LINDSEY MD Ot Z79. 01 HIGH HEEL BUILDER (CURRENT) USE OF ANTICOAGULANT 10/25/2016 ENRICO LINDSEY MD Ot Z99. 2 DEPENDENCE ON RENAL DIALYSIS 10/27/2016 ENRICO LINDSEY MD Ot D64. 9 ANEMIA, UNSPECIFIED 10/27/2016 ENRICO LINDSEY MD Ot N18. 6 END STAGE RENAL DISEASE 10/27/2016 ENRICO LINDSEY MD Ot T82.591A [facility] COMPL OF SURGICALLY CREATED ARTERIO 10/27/2016 ENRICO LINDSEY MD Ot Z79. 01 JAIL (CURRENT) USE OF ANTICOAGULANT 10/27/2016 ENRICO LINDSEY MD Ot Z99. 2 DEPENDENCE ON RENAL DIALYSIS 12/01/2016 Ranjit ARORA MD Ot I27 .2 OTHER SECONDARY PULMONARY HYPERTENSION 12/01/2016 Ranjit ARORA MD Ot I35 .1 NONRHEUMATIC AORTIC (VALVE) INSUFFICIENC 12/01/2016 Ranjit ARORA MD Ot I48.91 UNSPECIFIED ATRIAL FIBRILLATION 12/01/2016 SANDRA MASON MD, Ot N18.6 END STAGE RENAL DISEASE 12/01/2016 SANDRA MASON MD, Ot R25.3 FASCICULATION 12/01/2016 SANDRA MASON MD, Ot Z79.01 JAIL (CURRENT) USE OF ANTICOAGULANT 12/01/2016 SANDRA MASON MD, Ot 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 ON RENAL DIALYSIS 12/05/2016 Ranjit ARORA MD Ot I27 .2 OTHER SECONDARY PULMONARY HYPERTENSION 12/05/2016 Ranjit ARORA MD, Ot I35 .1 NONRHEUMATIC AORTIC (VALVE) INSUFFICIENC 12/05/2016 Ranjit ARORA MD Ot I48.91 UNSPECIFIED ATRIAL FIBRILLATION 12/08/2016 ARLEEN LIND MD Ot E78.00 PURE HYPERCHOLESTEROLEMIA, UNSPECIFIED 12/08/2016 ARLEEN LIND MD Ot F32 .9 MAJOR DEPRESSIVE DISORDER, SINGLE EPISOD 12/08/2016 ARLEEN LIND MD Ot I08 .3 COMB RHEUMATIC DISORD OF MITRAL, AORTIC 12/08/2016 ARLEEN LIND MD Ot I12 .0 HYP CHR KIDNEY DISEASE W STAGE 5 CHR KID 12/08/2016 ARLEEN LIND MD, Ot I48.91 UNSPECIFIED ATRIAL FIBRILLATION 12/08/2016 ARLEEN LIND MD, Ot N18 .6 END STAGE RENAL DISEASE 12/08/2016 ARLEEN LIND MD Ot R01 .1 CARDIAC MURMUR, UNSPECIFIED 12/08/2016 ARLEEN LIND MD Ot R64 CACHEXIA 12/08/2016 ARLEEN LIND MD Ot S32.592A OTH FRACTURE OF LEFT PUBIS, INIT ENCNTR 12/08/2016 ARLEEN LIND MD Ot S52.572A OTH INTARTIC FRACTURE OF LOWER END OF LE 12/08/2016 ARLEEN LIND MD Ot Z79.01 JAIL (CURRENT) USE OF ANTICOAGULANT 12/08/2016 ARLEEN LIND MD Ot Z96.652 PRESENCE OF LEFT ARTIFICIAL KNEE JOINT 12/08/2016 ARLEEN LIND MD Ot Z99 .2 DEPENDENCE ON RENAL DIALYSIS 12/09/2016 ARLEEN LIND MD Ot E78.00 PURE HYPERCHOLESTEROLEMIA, UNSPECIFIED 12/09/2016 ARLEEN LIND MD Ot F32 .9 MAJOR DEPRESSIVE DISORDER, SINGLE EPISOD 12/09/2016 ARLEEN LIND MD Ot I08 .3 COMB RHEUMATIC DISORD OF MITRAL, AORTIC 12/09/2016 ARLEEN LIND MD Ot I12 .0 HYP CHR KIDNEY DISEASE W STAGE 5 CHR KID 12/09/2016 ARLEEN LIND MD Ot I48.91 UNSPECIFIED ATRIAL FIBRILLATION 12/09/2016 ARLEEN LIND MD Ot K59.03 DRUG INDUCED CONSTIPATION 12/09/2016 ARLEEN LIND MD Ot N18 .6 END STAGE RENAL DISEASE 12/09/2016 ARLEEN LIND MD Ot R01 .1 CARDIAC MURMUR, UNSPECIFIED 12/09/2016 ARLEEN LIND MD [...] ESTABLISH 12/09/2016 ARLEEN LIND MD Ot Z79.01 HIGH HEEL BUILDER (CURRENT) USE OF ANTICOAGULANT 12/09/2016 ARLEEN LIND MD Ot Z96.652 PRESENCE OF LEFT ARTIFICIAL KNEE JOINT 12/09/2016 ARLEEN LIND MD Ot Z99 .2 DEPENDENCE ON RENAL DIALYSIS 03/08/2017 ENRICO LINDSEY MD Ot E78. 00 PURE HYPERCHOLESTEROLEMIA, UNSPECIFIED 03/08/2017 ENRICO LINDSEY MD Ot I12. 0 HYP CHR KIDNEY DISEASE W STAGE 5 CHR KID 03/08/2017 ENRICO LINDSEY MD Ot I48. 91 UNSPECIFIED ATRIAL FIBRILLATION 03/08/2017 ENRICO LINDSEY MD Ot K56. 7 ILEUS, UNSPECIFIED 03/08/2017 ROSALIA BAER ENRICO J Ot K59. 00 CONSTIPATION, UNSPECIFIED 03/08/2017 ROSALIA BAER, ENRICO J Ot M54. 5 LOW BACK PAIN 03/08/2017 ROSALIA BAER ENRICO J Ot N18. 6 END STAGE RENAL DISEASE 03/08/2017 ROSALIA BARE ENRICO J Ot Z99. 2 DEPENDENCE ON RENAL DIALYSIS 03/09/2017 ROSALIA BAER ENRICO J Ot E78. 00 PURE HYPERCHOLESTEROLEMIA, UNSPECIFIED 03/09/2017 ROSALIA BAER ENRICO J Ot I12. 0 HYP CHR KIDNEY DISEASE W STAGE 5 CHR KID 03/09/2017 ROSALIA BAER ENRICO J Ot I48. 91 UNSPECIFIED ATRIAL FIBRILLATION 03/09/2017 ROSALIA BAER ENRICO J Ot K56. 7 ILEUS, UNSPECIFIED 03/09/2017 ROSALIA BAER ENRICO J Ot K59. 00 CONSTIPATION, UNSPECIFIED 03/09/2017 ROSALIA BAER ENRICO J Ot M54. 5 LOW BACK PAIN 03/09/2017 ROSALIA BAER ENRICO J Ot N18. 6 END STAGE RENAL DISEASE 03/09/2017 ROSALIA BAER ENRICO J Ot Z99. 2 DEPENDENCE ON RENAL DIALYSIS 04/12/2017 ROSALIA BAER ENRICO J Ot E78. 00 PURE HYPERCHOLESTEROLEMIA, UNSPECIFIED 04/12/2017 ROSALIA BAER ENRICO J Ot E87. 79 OTHER FLUID OVERLOAD 04/12/2017 ROSALIA BAER ENRICO J Ot I12. 0 HYP CHR KIDNEY DISEASE W STAGE 5 CHR KID 04/12/2017 ROSALIA BAER ENRICO J Ot I48. 91 UNSPECIFIED ATRIAL FIBRILLATION 04/12/2017 ROSALIA BAER ENRICO J Ot N18. 6 END STAGE RENAL DISEASE 04/12/2017 ROSALIA BAER ENRICO J Ot R06. 02 SHORTNESS OF BREATH 04/12/2017 ROSALIA BAER ENRICO J Ot Z99. 2 DEPENDENCE ON RENAL DIALYSIS 04/20/2017 ANDREW SIERRA APRN Ot E78.00 PURE HYPERCHOLESTEROLEMIA, UNSPECIFIED 04/20/2017 ANDREW SIERRA SLEEPER CUTTER Ot I10 ESSENTIAL (PRIMARY) HYPERTENSION 04/20/2017 ANDREW SIERRA APRN Ot I48.91 UNSPECIFIED ATRIAL FIBRILLATION 04/20/2017 ANDREW [...] I48.91 UNSPECIFIED ATRIAL FIBRILLATION 05/29/2017 SANDRA MASON MD, Ot J32.9 CHRONIC SINUSITIS, UNSPECIFIED 05/29/2017 SANDRA [...] I48.91 UNSPECIFIED ATRIAL FIBRILLATION 06/04/2017 SANDRA MASON MD, Ot J32.9 CHRONIC SINUSITIS, UNSPECIFIED 06/04/2017 SANDRA MASON MD, Ot J40 BRONCHITIS, NOT SPECIFIED ACUTE OR CH 06/04/2017 SANDRA MASON MD, Ot N18.6 END STAGE RENAL DISEASE 06/04/2017 SANDRA MASON MD, Ot R05 COUGH 06/04/2017 SANDRA MASON MD, Ot Z04.9 ENCOUNTER FOR EXAMINATION AND OBSERVATIO 06/04/2017 SANDRA MASON MD, Ot Z88.0 ALLERGY STATUS TO PENICILLIN 06/04/2017 SANDRA MASON MD, Ot Z88.2 ALLERGY STATUS TO SULFONAMIDES STATUS 06/04/2017 SANDRA MASON MD, Ot Z88.8 ALLERGY STATUS TO OTH DRUG/MEDS/BIOL SUB 06/04/2017 SANDRA MASON MD, Ot Z90.710 ACQUIRED ABSENCE OF BOTH CERVIX AND UTER 06/04/2017 SANDRA MASON MD, Ot Z90.89 ACQUIRED ABSENCE OF OTHER ORGANS 06/04/2017 SANDRA MASON MD, Ot 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 ON RENAL DIALYSIS 06/15/2017 JOURDAN BAER, NALLELY R Ot D64.9 ANEMIA, UNSPECIFIED 06/23/2017 NALLELY SOLIMAN MD R Ot D64.9 ANEMIA, UNSPECIFIED 04/13/2018 NALLELY SOLIMAN MD R Ot D64.9 ANEMIA, UNSPECIFIED 04/13/2018 ANDREW SIERRA APRN Ot E78.00 PURE HYPERCHOLESTEROLEMIA, UNSPECIFIED 04/13/2018 ANDREW SIERRA APRN Ot I12 .0 HYP CHR KIDNEY DISEASE W STAGE 5 CHR KID 04/13/2018 ANDREW SIERRA APRN Ot I48.91 UNSPECIFIED ATRIAL FIBRILLATION 04/13/2018 ANDREW SIERRA APRN Ot N18 .6 END STAGE RENAL DISEASE 04/13/2018 ANDREW SIERRA APRN Ot R53 .1 WEAKNESS 04/13/2018 ANDREW SIERRA APRN Ot R53.81 OTHER MALAISE 04/13/2018 ANDREW SIERRA APRN Ot Z88 .0 ALLERGY STATUS TO PENICILLIN 04/13/2018 ANDREW SIERRA APRN Ot Z88 .2 ALLERGY STATUS TO SULFONAMIDES STATUS 04/13/2018 ANDREW SIERRA APRN Ot Z88 .8 ALLERGY STATUS TO OTH DRUG/MEDS/BIOL SUB 04/13/2018 ANDREW SIERRA APRN Ot Z90.49 ACQUIRED ABSENCE OF OTHER SPECIFIED PART 04/13/2018 ANDREW SIERRA APRN Ot Z90.710 ACQUIRED ABSENCE OF BOTH CERVIX AND UTER 04/13/2018 ANDREW SIERRA APRN Ot Z90.89 ACQUIRED ABSENCE OF OTHER ORGANS 04/13/2018 ANDREW SIERRA APRN Ot Z91.041 RADIOGRAPHIC DYE ALLERGY STATUS 04/13/2018 ANDREW SIERRA APRN Ot Z99 .2 DEPENDENCE ON RENAL DIALYSIS 04/15/2018 ANDREW SIERRA APRN Ot E78.00 PURE HYPERCHOLESTEROLEMIA, UNSPECIFIED 04/15/2018 ANDREW SIERRA APRN Ot I12 .0 HYP CHR KIDNEY DISEASE W STAGE 5 CHR KID 04/15/2018 ANDREW SIERRA APRN Ot I48.91 UNSPECIFIED ATRIAL FIBRILLATION 04/15/2018 ANDREW SIERRA APRN Ot N18 .6 END STAGE RENAL DISEASE 04/15/2018 ANDREW SIERRA APRN Ot R53 .1 WEAKNESS 04/15/2018 ANDREW SIERRA APRN Ot R53.81 OTHER MALAISE 04/15/2018 ANDREW SIERRA APRN Ot Z88 .0 ALLERGY STATUS TO PENICILLIN 04/15/2018 ANDREW SIERRA APRN Ot Z88 .2 ALLERGY STATUS TO SULFONAMIDES STATUS 04/15/2018 ANDREW SIERRA APRN Ot Z88 .8 ALLERGY STATUS TO OTH DRUG/MEDS/BIOL SUB 04/15/2018 ANDREW SIERRA APRN Ot Z90.49 ACQUIRED ABSENCE OF OTHER SPECIFIED PART 04/15/2018 ANDREW SIERRA APRN Ot Z90.710 ACQUIRED ABSENCE OF BOTH CERVIX AND UTER 04/15/2018 ANDREW SIERRA APRN Ot Z90.89 ACQUIRED ABSENCE OF OTHER ORGANS 04/15/2018 ANDREW SIERRA APRN Ot Z91.041 RADIOGRAPHIC DYE ALLERGY STATUS 04/15/2018 ANDREW SIERRA APRN Ot Z99 .2 DEPENDENCE ON RENAL DIALYSIS 08/08/2018 ENRICO LINDSEY MD Ot A08. 4 VIRAL INTESTINAL INFECTION, UNSPECIFIED 08/08/2018 ENRICO LINDSEY MD Ot E78. 00 PURE HYPERCHOLESTEROLEMIA, UNSPECIFIED 08/08/2018 ENRICO LINDSEY MD Ot I12. 0 HYP CHR KIDNEY DISEASE W STAGE 5 CHR KID 08/08/2018 ENRICO LINDSEY MD Ot I48. 91 UNSPECIFIED ATRIAL FIBRILLATION 08/08/2018 ENRICO LINDSEY MD Ot J20. 9 ACUTE BRONCHITIS, UNSPECIFIED 08/08/2018 ENRICO LINDSEY MD Ot N18. 6 END STAGE RENAL DISEASE 08/08/2018 ENRICO LINDSEY MD Ot R11. 2 NAUSEA WITH VOMITING, UNSPECIFIED 08/08/2018 ENRICO LINDSEY MD Ot Z88. 0 ALLERGY STATUS TO PENICILLIN 08/08/2018 ENRICO LINDSEY MD Ot Z88. 1 ALLERGY STATUS TO OTHER ANTIBIOTIC AGENT 08/08/2018 ENRICO LINDSEY MD Ot Z88. 2 ALLERGY STATUS TO SULFONAMIDES STATUS 08/08/2018 ENRICO LINDSEY MD Ot Z88. 8 ALLERGY STATUS TO OTH DRUG/MEDS/BIOL SUB 08/08/2018 ENRICO LINDSEY MD Ot Z90. 49 ACQUIRED ABSENCE OF OTHER SPECIFIED PART 08/08/2018 ENRICO LINDSEY MD Ot Z90.710 ACQUIRED ABSENCE OF BOTH CERVIX AND UTER 08/08/2018 ENRICO LINDSEY MD Ot Z90. 89 ACQUIRED ABSENCE OF OTHER ORGANS 08/08/2018 ENRICO LINDSEY MD Ot Z91.041 RADIOGRAPHIC DYE ALLERGY STATUS 08/08/2018 ENRICO LINDSEY MD Ot Z98.890 OTHER SPECIFIED POSTPROCEDURAL STATES 08/08/2018 ENRICO LINDSEY MD Ot Z99. 2 DEPENDENCE ON RENAL DIALYSIS 08/10/2018 BERNOT, LUTHER [...] Ot Z88.0 ALLERGY STATUS TO PENICILLIN 08/10/2018 LUTHER HICKS Ot Z88.1 ALLERGY STATUS TO OTHER ANTIBIOTIC [...] Ot Z92.21 PERSONAL HISTORY OF ANTINEOPLASTIC CHEMO 09/07/2018 ART BAER, SEGUN Asher Ot E78.00 PURE HYPERCHOLESTEROLEMIA, UNSPECIFIED 09/07/2018 SEGUN CORDOVA MD Ot I12.0 HYP CHR KIDNEY DISEASE W STAGE 5 CHR KID 09/07/2018 SEGUN CORDOVA MD Ot I48.91 UNSPECIFIED ATRIAL FIBRILLATION 09/07/2018 SEGUN CORDOVA MD Ot M79.89 OTHER SPECIFIED SOFT TISSUE DISORDERS 09/07/2018 SEGUN CORDOVA MD Ot N18.6 END STAGE RENAL DISEASE 09/07/2018 SEGUN CORDOVA MD Ot R60.0 LOCALIZED EDEMA 09/07/2018 SEGUN CORDOVA MD Ot Z79.01 JAIL (CURRENT) USE OF ANTICOAGULANT 09/07/2018 SEGUN CORDOVA MD Ot Z87.01 PERSONAL HISTORY OF PNEUMONIA (RECURRENT 09/07/2018 SEGUN CORDOVA MD Ot Z88.0 ALLERGY STATUS TO PENICILLIN 09/07/2018 SEGUN CORDOVA MD Ot Z88.1 ALLERGY STATUS TO OTHER ANTIBIOTIC AGENT 09/07/2018 SEGUN CORDOVA MD Ot Z88.2 ALLERGY STATUS TO SULFONAMIDES STATUS 09/07/2018 SEGUN CORDOVA MD Ot Z88.8 ALLERGY STATUS TO OTH DRUG/MEDS/BIOL SUB 09/07/2018 SEGUN CORDOVA MD Ot Z90.49 ACQUIRED ABSENCE OF OTHER SPECIFIED PART 09/07/2018 SEGUN CORDOVA MD, Ot Z90.710 ACQUIRED ABSENCE OF BOTH CERVIX AND UTER 09/07/2018 SEGUN CORDOVA MD, Ot Z90.89 ACQUIRED ABSENCE OF OTHER ORGANS 09/07/2018 SEGUN CORDOVA MD, Ot 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 ON RENAL DIALYSIS 09/09/2018 SEGUN CORDOVA MD, Ot E78.00 PURE HYPERCHOLESTEROLEMIA, UNSPECIFIED 09/09/2018 SEGUN CORDOVA MD, Ot I12.0 HYP CHR KIDNEY DISEASE W STAGE 5 CHR KID 09/09/2018 SEGUN CORDOVA MD, Ot I48.91 UNSPECIFIED ATRIAL FIBRILLATION 09/09/2018 SEGUN CORDOVA MD, Ot M79.89 OTHER SPECIFIED SOFT TISSUE DISORDERS 09/09/2018 SEGUN CORDOVA MD, Ot N18.6 END STAGE RENAL DISEASE 09/09/2018 SEGUN CORDOVA MD, Ot R60.0 LOCALIZED EDEMA 09/09/2018 SEGUN CORDOVA MD, Ot Z79.01 JAIL (CURRENT) USE OF ANTICOAGULANT 09/09/2018 SEGUN CORDOVA MD, Ot Z87.01 PERSONAL HISTORY OF PNEUMONIA (RECURRENT 09/09/2018 SEGUN CORDOVA MD, Ot Z88.0 ALLERGY STATUS TO PENICILLIN 09/09/2018 SEGUN CORDOVA MD, Ot Z88.1 ALLERGY STATUS TO OTHER ANTIBIOTIC AGENT 09/09/2018 SEGUN CORDOVA MD, Ot Z88.2 ALLERGY STATUS TO SULFONAMIDES STATUS 09/09/2018 SEGUN CORDOVA MD, Ot Z88.8 [facility]GY STATUS [facility] DR[facility]/MEDS/BIOL SUB 09/09/2018 SEGUN CORDOVA MD, Ot Z90.49 ACQUIRED ABSENCE OF OTHER SPECIFIED PART 09/09/2018 SEGUN CORDOVA MD, Ot Z90.710 ACQUIRED ABSENCE OF BOTH CERVIX AND UTER 09/09/2018 SEGUN CORDOVA MD, Ot Z90.89 ACQUIRED ABSENCE OF OTHER ORGANS 09/09/2018 SEGUN CORDOVA MD, Ot 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 ON RENAL DIALYSIS 10/10/2018 ANDREW SIERRA APRN Ot E78.00 PURE HYPERCHOLESTEROLEMIA, UNSPECIFIED 10/10/2018 ANDREW SIERRA APRN Ot 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, W 10/10/2018 ANDREW SIERRA APRN Ot I48.91 UNSPECIFIED ATRIAL FIBRILLATION 10/10/2018 ANDERW SIERRA APRN Ot M79.81 NONTRAUMATIC HEMATOMA OF SOFT TISSUE 10/10/2018 ANDREW SIERRA APRN Ot M79.89 OTHER SPECIFIED SOFT TISSUE DISORDERS 10/10/2018 ANDREW SIERRA APRN Ot N18 .6 END STAGE RENAL DISEASE 10/10/2018 ANDREW SIERRA APRN Ot R60 .0 LOCALIZED EDEMA 10/10/2018 ANDREW SIRERA APRN Ot Z88 .0 ALLERGY STATUS TO PENICILLIN 10/10/2018 ANDREW SIERRA APRN Ot Z88 .1 ALLERGY STATUS TO OTHER ANTIBIOTIC AGENT 10/10/2018 ANDREW SIERRA APRN Ot Z88 .2 ALLERGY STATUS TO SULFONAMIDES STATUS 10/10/2018 ANDREW SIERRA APRN Ot Z88 .5 ALLERGY STATUS TO NARCOTIC AGENT STATUS 10/10/2018 ANDREW SIERRA APRN Ot Z90.49 ACQUIRED ABSENCE OF OTHER SPECIFIED PART 10/10/2018 ANDREW SIERRA APRN Ot Z90.710 ACQUIRED ABSENCE OF BOTH CERVIX AND UTER 10/10/2018 ANDREW SIERRA APRN Ot Z90.89 ACQUIRED ABSENCE OF OTHER ORGANS 10/10/2018 ANDREW SIERRA APRN Ot Z91.041 RADIOGRAPHIC DYE ALLERGY STATUS 10/10/2018 ANDREW SIERRA APRN Ot Z99 .2 DEPENDENCE ON RENAL DIALYSIS 10/17/2018 ANDREW SIERRA APRN Ot E78.00 PURE HYPERCHOLESTEROLEMIA, UNSPECIFIED 10/17/2018 ANDREW SIERRA APRN Ot 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, W 10/17/2018 ANDREW SIERRA APRN Ot I48.91 UNSPECIFIED ATRIAL FIBRILLATION 10/17/2018 ANDREW SIERRA APRN Ot M79.81 NONTRAUMATIC HEMATOMA OF SOFT TISSUE 10/17/2018 ANDREW SIERRA APRN Ot M79.89 OTHER SPECIFIED SOFT TISSUE DISORDERS 10/17/2018 ANDREW SIERRA APRN Ot N18 .6 END STAGE RENAL DISEASE 10/17/2018 ANDREW SIERRA APRN Ot R60 .0 LOCALIZED EDEMA 10/17/2018 ANDREW SIERRA APRN Ot Z88 .0 ALLERGY STATUS TO PENICILLIN 10/17/2018 ANDREW SIERRA SLEEPER CUTTER Ot Z88 .1 ALLERGY STATUS TO OTHER ANTIBIOTIC AGENT 10/17/2018 ANDREW SIERRA APRN Ot Z88 .2 ALLERGY STATUS TO SULFONAMIDES STATUS 10/17/2018 ANDREW SIERRA APRN Ot Z88 .5 ALLERGY STATUS TO NARCOTIC AGENT STATUS 10/17/2018 ANDREW SIERRA APRN Ot Z90.49 ACQUIRED ABSENCE OF OTHER SPECIFIED PART 10/17/2018 ANDREW SIERRA APRN Ot Z90.710 ACQUIRED ABSENCE OF BOTH CERVIX AND UTER 10/17/2018 ANDREW SIERRA APRN Ot Z90.89 ACQUIRED ABSENCE OF OTHER ORGANS 10/17/2018 ANDREW SIERRA APRN Ot Z91.041 RADIOGRAPHIC DYE ALLERGY STATUS 10/17/2018 ANDREW SIERRA APRN Ot Z99 .2 DEPENDENCE ON RENAL DIALYSIS 11/04/2018 ENRICO LINDSEY MD Ot E78. 00 PURE HYPERCHOLESTEROLEMIA, UNSPECIFIED 11/04/2018 ENRICO LINDSEY MD Ot E87. 3 ALKALOSIS 11/04/2018 ENRICO LINDSEY MD Ot I12. 0 HYP CHR KIDNEY DISEASE W STAGE 5 CHR KID 11/04/2018 ENRICO LINDSEY MD Ot I48. 91 UNSPECIFIED ATRIAL FIBRILLATION 11/04/2018 ENRICO LINDSEY MD Ot J44. 9 CHRONIC OBSTRUCTIVE PULMONARY DISEASE, U 11/04/2018 ENRICO LINDSEY MD Ot N18. 6 END STAGE RENAL DISEASE 11/04/2018 ENRICO LINDSEY MD Ot R06. 02 SHORTNESS OF BREATH 11/04/2018 ENRICO LINDSEY MD Ot R06. 03 ACUTE RESPIRATORY DISTRESS 11/04/2018 ENRICO LINDSEY MD Ot R09. 02 HYPOXEMIA 11/04/2018 ENRICO LINDSEY MD Ot Z86.018 PERSONAL HISTORY OF OTHER BENIGN NEOPLAS 11/04/2018 ENRICO LINDSEY MD Ot Z88. 0 ALLERGY STATUS TO PENICILLIN 11/04/2018 ENRICO LINDSEY MD Ot Z88. 2 ALLERGY STATUS TO SULFONAMIDES STATUS 11/04/2018 ENRICO LINDSEY MD Ot Z88. 5 ALLERGY STATUS TO NARCOTIC AGENT STATUS 11/04/2018 ENRICO LINDSEY MD Ot Z88. 8 ALLERGY STATUS TO OTH DRUG/MEDS/BIOL SUB 11/04/2018 ENRICO LINDSEY MD Ot Z90. 49 ACQUIRED ABSENCE OF OTHER SPECIFIED PART 11/04/2018 ENRICO LINDSEY MD Ot Z90.710 ACQUIRED ABSENCE OF BOTH CERVIX AND UTER 11/04/2018 ENRICO LINDSEY MD Ot Z91.041 RADIOGRAPHIC DYE ALLERGY STATUS 11/04/2018 ENRICO LINDSEY MD Ot Z91. 14 PATIENT'S OTHER NONCOMPLIANCE WITH MEDIC 11/04/2018 ENRICO LINDSEY MD Ot Z99. 2 DEPENDENCE ON RENAL DIALYSIS 11/08/2018 ENRICO LINDSEY MD Ot E78. 00 PURE HYPERCHOLESTEROLEMIA, UNSPECIFIED 11/08/2018 ENRICO LINDSEY MD Ot E87. 3 ALKALOSIS 11/08/2018 ENRICO LINDSEY MD Ot I12. 0 HYP CHR KIDNEY DISEASE W STAGE 5 CHR KID 11/08/2018 ENRICO LINDSEY MD Ot I48. 91 UNSPECIFIED ATRIAL FIBRILLATION 11/08/2018 ENRICO LINDSEY MD Ot J44. 9 CHRONIC OBSTRUCTIVE PULMONARY DISEASE, U 11/08/2018 ENRICO LINDSEY MD Ot N18. 6 END STAGE RENAL DISEASE 11/08/2018 ENRICO LINDSEY MD Ot R06. 02 SHORTNESS OF BREATH 11/08/2018 ENRICO LINDSEY MD Ot R06. 03 ACUTE RESPIRATORY DISTRESS 11/08/2018 ENRICO LINDSEY MD Ot R09. 02 HYPOXEMIA 11/08/2018 ENRICO LINDSEY MD Ot Z86.018 PERSONAL HISTORY OF OTHER BENIGN NEOPLAS 11/08/2018 ENRICO LINDSEY MD Ot Z88. 0 ALLERGY STATUS TO PENICILLIN 11/08/2018 ENRICO LINDSEY MD Ot Z88. 2 ALLERGY STATUS TO SULFONAMIDES STATUS 11/08/2018 ENRICO LINDSEY MD Ot Z88. 5 ALLERGY STATUS TO NARCOTIC AGENT STATUS 11/08/2018 ENRICO LINDSEY MD Ot Z88. 8 ALLERGY STATUS TO OTH DRUG/MEDS/BIOL SUB 11/08/2018 ENRICO LINDSEY MD Ot Z90. 49 ACQUIRED ABSENCE OF OTHER SPECIFIED PART 11/08/2018 ENRICO LINDSEY MD Ot Z90.710 ACQUIRED ABSENCE OF BOTH CERVIX AND UTER 11/08/2018 ROSALIA BAER, ENRICO Dai Ot Z91.041 RADIOGRAPHIC DYE ALLERGY STATUS 11/08/2018 ROSALAI BAER, ENRICO Dai Ot Z91. 14 PATIENT'S OTHER NONCOMPLIANCE WITH MEDIC 11/08/2018 ROSALIA BAER, ENRICO Dai Ot Z99. 2 DEPENDENCE ON RENAL DIALYSIS 12/06/2018 JOURDAN BAER, NALLELY Hatch Ot D64.9 ANEMIA, UNSPECIFIED 12/06/2018 SEGUN CORDOVA MD, Ot E78.00 PURE HYPERCHOLESTEROLEMIA, UNSPECIFIED 12/06/2018 SEGUN CORDOVA MD, Ot I12.0 HYP CHR KIDNEY DISEASE W STAGE 5 CHR KID 12/06/2018 SEGUN CORDOVA MD, Ot I48.91 UNSPECIFIED ATRIAL FIBRILLATION 12/06/2018 SEGUN CORDOVA MD, Ot J44.1 CHRONIC OBSTRUCTIVE PULMONARY DISEASE W 12/06/2018 SEGUN CORDOVA MD, Ot K44.9 DIAPHRAGMATIC HERNIA WITHOUT OBSTRUCTION 12/06/2018 SEGUN CORDOVA MD, Ot N18.6 END STAGE RENAL DISEASE 12/06/2018 SEGUN CORDOVA MD, Ot R06.02 SHORTNESS OF BREATH 12/06/2018 SEGUN CORDOVA MD, Ot R18.8 OTHER ASCITES 12/06/2018 SEGUN CORDOVA MD, Ot Z86.012 PERSONAL HISTORY OF BENIGN CARCINOID YOUSIF 12/06/2018 SEGUN CORDOVA MD, Ot Z88.0 ALLERGY STATUS TO PENICILLIN 12/06/2018 SEGUN CORDOVA MD, Ot Z88.1 ALLERGY STATUS TO OTHER ANTIBIOTIC AGENT 12/06/2018 SEGUN CORDOVA MD, Ot Z88.2 ALLERGY STATUS TO SULFONAMIDES STATUS 12/06/2018 SEGUN CORDOVA MD, Ot Z88.8 ALLERGY STATUS TO OTH DRUG/MEDS/BIOL SUB 12/06/2018 SEGUN CORDOVA MD, Ot Z90.49 ACQUIRED ABSENCE OF OTHER SPECIFIED PART 12/06/2018 SEGUN CORDOVA MD, Ot Z90.710 ACQUIRED ABSENCE OF BOTH CERVIX AND UTER 12/06/2018 SEGUN CORDOVA MD, Ot Z90.89 ACQUIRED ABSENCE OF OTHER ORGANS 12/06/2018 SEGUN CORDOVA MD, Ot Z91.041 RADIOGRAPHIC DYE ALLERGY STATUS 12/06/2018 SEGUN CORDOVA MD, Ot 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 ON RENAL DIALYSIS 12/07/2018 JOURDAN BAER, NALLELY R Ot D64.9 ANEMIA, UNSPECIFIED 12/11/2018 SEGUN CORDOVA MD Ot E78.00 PURE HYPERCHOLESTEROLEMIA, UNSPECIFIED 12/11/2018 SEGUN CORDOVA MD Ot I12.0 HYP CHR KIDNEY DISEASE W STAGE 5 CHR KID 12/11/2018 SEGUN CORDOVA MD, Ot I48.91 UNSPECIFIED ATRIAL FIBRILLATION 12/11/2018 SEGUN CORDOVA MD, Ot J44.1 CHRONIC OBSTRUCTIVE PULMONARY DISEASE W 12/11/2018 SEGUN CORDOVA MD, Ot K44.9 DIAPHRAGMATIC HERNIA WITHOUT OBSTRUCTION 12/11/2018 SEGUN CORDOVA MD, Ot N18.6 END STAGE RENAL DISEASE 12/11/2018 SEGUN CORDOVA MD Ot R06.02 SHORTNESS OF BREATH 12/11/2018 SEGUN CORDOVA MD, Ot R18.8 OTHER ASCITES 12/11/2018 SEGUN CORDOVA MD, Ot Z86.012 PERSONAL HISTORY OF BENIGN CARCINOID YOUSIF 12/11/2018 SEGUN CORDOVA MD, Ot Z88.0 ALLERGY STATUS TO PENICILLIN 12/11/2018 SEGUN CORDOVA MD Ot Z88.1 ALLERGY STATUS TO OTHER ANTIBIOTIC AGENT 12/11/2018 SEGUN CORDOVA MD, Ot Z88.2 ALLERGY STATUS TO SULFONAMIDES STATUS 12/11/2018 SEGUN CORDOVA MD, Ot Z88.8 ALLERGY STATUS TO OTH DRUG/MEDS/BIOL SUB 12/11/2018 SEGUN CORDOVA MD Ot Z90.49 ACQUIRED ABSENCE OF OTHER SPECIFIED PART 12/11/2018 SEGUN CORDOVA MD, Ot Z90.710 ACQUIRED ABSENCE OF BOTH CERVIX AND UTER 12/11/2018 SEGUN CORDOVA MD Ot Z90.89 ACQUIRED ABSENCE OF OTHER ORGANS 12/11/2018 SEGUN CORDOVA MD, Ot Z91.041 RADIOGRAPHIC DYE ALLERGY STATUS 12/11/2018 ART BAER, SEGUN Asher Ot 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 ON RENAL DIALYSIS 12/20/2018 PATRICIO TEIXEIRA DO Ot R18. 8 OTHER ASCITES 12/22/2018 PATRICIO TEIXEIRA DO Ot R18. 8 OTHER ASCITES 12/22/2018 PATRICIO TEIXEIRA DO Ot R18. 8 OTHER ASCITES 12/30/2018 PATRICIO TEIXEIRA DO Ot R18. 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 8 OTHER SPECIFIED ANXIETY DISORDERS 01/06/2019 PATRICIO TEIXEIRA DO Ot I08. 3 COMB RHEUMATIC DISORD OF MITRAL, AORTIC 01/06/2019 PATRICIO TEIXEIRA DO Ot I10 ESSENTIAL (PRIMARY) HYPERTENSION 01/06/2019 PATRICIO TEIXEIRA DO Ot I35. 0 NONRHEUMATIC AORTIC (VALVE) STENOSIS 01/06/2019 PATRICIO TEIXEIRA DO Ot I35. 1 NONRHEUMATIC AORTIC (VALVE) INSUFFICIENC 01/06/2019 PATRICIO TEIXEIRA DO Ot I48. 91 UNSPECIFIED ATRIAL FIBRILLATION 01/06/2019 PATRICIO TEIXEIRA DO Ot J44. 9 CHRONIC OBSTRUCTIVE PULMONARY DISEASE, U 01/06/2019 PATRICIO TEIXEIRA DO Ot K63. 5 POLYP OF COLON 01/06/2019 PATRICIO TEIXEIRA DO Ot K63. 89 OTHER SPECIFIED DISEASES OF INTESTINE 01/06/2019 PATRICIO TEIXEIRA DO Ot N18. 6 END STAGE RENAL DISEASE 01/06/2019 PATRICIO TEIXEIRA DO Ot R19. 7 DIARRHEA, UNSPECIFIED 01/06/2019 PATRICIO TEIXEIRA DO Ot Z79. 01 JAIL (CURRENT) USE OF ANTICOAGULANT 01/06/2019 PATRICIO TEIXEIRA DO Ot Z79. 82 JAIL (CURRENT) USE OF ASPIRIN 01/06/2019 PATRICIO TEIXEIRA DO Ot Z82. 49 FAMILY HX OF ISCHEM HEART DIS AND OTH DI 01/06/2019 PATRICIO TEIXEIRA DO Ot Z83. 3 FAMILY HISTORY OF DIABETES MELLITUS 01/06/2019 PATRICIO TEIXEIRA DO Ot Z88. 0 ALLERGY STATUS TO PENICILLIN 01/06/2019 PATRICIO TEIXEIRA DO Ot Z88. 1 ALLERGY STATUS TO OTHER ANTIBIOTIC AGENT 01/06/2019 PATRICIO TEIXEIRA DO Ot Z88. 2 ALLERGY STATUS TO SULFONAMIDES STATUS 01/06/2019 PATRICIO TEIXEIRA DO Ot Z88. 5 ALLERGY STATUS TO NARCOTIC AGENT STATUS 01/06/2019 PATRICIO TEIXEIRA DO Ot Z90.710 ACQUIRED ABSENCE OF BOTH CERVIX AND UTER 01/06/2019 PATRICIO TEIXEIRA DO Ot Z90. 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 8 OTHER SPECIFIED ANXIETY DISORDERS 01/11/2019 PATRICIO TEIXEIRA DO Ot I08. 3 COMB RHEUMATIC DISORD OF MITRAL, AORTIC 01/11/2019 PATRICIO TEIXEIRA DO Ot I10 ESSENTIAL (PRIMARY) HYPERTENSION 01/11/2019 PATRICIO TEIXEIRA DO Ot I35. 0 NONRHEUMATIC AORTIC (VALVE) STENOSIS 01/11/2019 PATRICIO TEIXEIRA DO Ot I35. 1 NONRHEUMATIC AORTIC (VALVE) INSUFFICIENC 01/11/2019 PATRICIO TEIXEIRA DO Ot I48. 91 UNSPECIFIED ATRIAL FIBRILLATION 01/11/2019 PATRICIO TEIXEIRA DO Ot J44. 9 CHRONIC OBSTRUCTIVE PULMONARY DISEASE, U 01/11/2019 PATRICIO TEIXEIRA DO Ot K63. 5 POLYP OF COLON 01/11/2019 PATRICIO TEIXEIRA DO Ot K63. 89 OTHER SPECIFIED DISEASES OF INTESTINE 01/11/2019 PATRICIO TEIXEIRA DO Ot N18. 6 END STAGE RENAL DISEASE 01/11/2019 PATRICIO TEIXEIRA DO Ot R19. 7 DIARRHEA, UNSPECIFIED 01/11/2019 PATRICIO TEIXEIRA DO Ot Z79. 01 HIGH HEEL BUILDER (CURRENT) USE OF ANTICOAGULANT 01/11/2019 PATRICIO TEIXEIRA DO Ot Z79. 82 HIGH HEEL BUILDER (CURRENT) USE OF ASPIRIN 01/11/2019 PATRICIO TEIXEIRA DO Ot Z82. 49 FAMILY HX OF ISCHEM HEART DIS AND OTH DI 01/11/2019 PATRICIO TEIXEIRA DO Ot Z83. 3 FAMILY HISTORY OF DIABETES MELLITUS 01/11/2019 PATRICIO TEIXEIRA DO Ot Z88. 0 ALLERGY STATUS TO PENICILLIN 01/11/2019 PATRICIO TEIXEIRA DO Ot Z88. 1 ALLERGY STATUS TO OTHER ANTIBIOTIC AGENT 01/11/2019 PATRICIO TEIXEIRA DO Ot Z88. 2 ALLERGY STATUS TO SULFONAMIDES STATUS 01/11/2019 PATRICIO TEIXEIRA DO Ot Z88. 5 ALLERGY STATUS TO NARCOTIC AGENT STATUS 01/11/2019 PATRICIO TEIXEIRA DO Ot Z90.710 ACQUIRED ABSENCE OF BOTH CERVIX AND UTER 01/11/2019 PATRICIO TEIXEIRA DO Ot Z90. 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 8 OTHER ASCITES 01/17/2019 PATRICIO TEIXEIRA DO Ot R18. 8 OTHER ASCITES 01/31/2019 PATRICIO TEIXEIRA DO Ot R18. 8 OTHER ASCITES 02/08/2019 Ranjit ARORA MD Ot I08 .3 COMB RHEUMATIC DISORD OF MITRAL, AORTIC 02/08/2019 Ranjit ARORA MD Ot I27.20 PULMONARY HYPERTENSION, UNSPECIFIED 02/08/2019 Ranjit ARORA MD Ot I50.32 CHRONIC DIASTOLIC (CONGESTIVE) HEART BIB 02/17/2019 PATRICIO TEIXEIRA DO Ot R18. 8 OTHER ASCITES 02/28/2019 Ranjit ARORA MD Ot I08 .3 COMB RHEUMATIC DISORD OF MITRAL, AORTIC 02/28/2019 Ranjit ARORA MD, Ot I27.20 PULMONARY HYPERTENSION, UNSPECIFIED 02/28/2019 Ranjit ARORA MD, Ot I50.32 CHRONIC DIASTOLIC (CONGESTIVE) HEART BIB 03/06/2019 Ranjit ARORA MD Ot I08 .3 COMB RHEUMATIC DISORD OF MITRAL, AORTIC 03/06/2019 Ranjit ARORA MD Ot I27.20 PULMONARY HYPERTENSION, UNSPECIFIED 03/06/2019 Rajnit ARORA MD, Ot I50.32 CHRONIC DIASTOLIC (CONGESTIVE) HEART BIB 03/06/2019 TEIXEIRA DOPATRICIO Ot R18. 8 OTHER ASCITES 06/01/2019 JOURDAN BAER, NALLELY Hatch Ot D64.9 ANEMIA, UNSPECIFIED 06/01/2019 TEIXEIRA DOPATRICIO Ot R18. 8 OTHER ASCITES 06/01/2019 Ranjit ARORA MD Ot I08 .3 COMB RHEUMATIC DISORD OF MITRAL, AORTIC 06/01/2019 Ranjit ARORA MD Ot I27.20 PULMONARY HYPERTENSION, UNSPECIFIED 06/01/2019 Ranjit ARORA MD Ot I50.32 CHRONIC DIASTOLIC (CONGESTIVE) HEART BIB 06/01/2019 TEIXEIRA DO PATRICIO Tina Ot R18. 8 OTHER ASCITES Procedures There is no data. Results Test Result Range Complete blood count (CBC) with automate d white blood cell (WBC) differential - 02/03/16 18:38 Blood leukocytes automated count (number/volume) 5.7 10*3/uL 4.3-11.0 Blood erythrocytes automated count (number/volume) 3.63 10*6/uL 4.35-5.85 Venous blood hemoglobin measurement (mass/volume) 11.0 g/dL 11.5-16.0 Blood hematocrit (volume fraction) 33 % 35-52 Automated erythrocyte mean corpuscular volume 92 [ foz_us] 80-99 Automated erythrocyte mean corpuscular h emoglobin (mass per erythrocyte) 30 pg 25-34 Automated erythrocyte mean corpuscular h emoglobin concentration measurement (mass/volume) 33 g/dL 32-36 Automated erythrocyte distribution width ratio 16. 1 % 10.0- 14.5 Automated blood platelet count [...] 10*3 1.0-4.0 Blood monocytes automated count (number/volume) 0. 4 10*3 0.0-1.0 Automated eosinophil count 0.4 10*3/uL 0 .0-0.3 Automated blood basophil count (count/volume) 0.0 10*3/uL 0.0-0.1 Comprehensive metabolic panel - 02/03/16 18:38 Serum or plasma sodium measurement (moles/volume) 142 mmol/L 135-145 Serum or plasma potassium measurement (moles/volume) 3.7 mmol/L 3.6-5.0 Serum or plasma chloride measurement (moles/volume) 96 mmol/L 98-107 Carbon dioxide 32 mmol/L 21-32 Serum or plasma anion gap determination (moles/volume) 14 mmol/L 5-14 Serum or plasma urea nitrogen measurement (mass/volume ) 27 mg/dL 7-18 Serum or plasma creatinine measurement (mass/volume) 3.49 mg/dL 0.60-1.30 Serum or plasma urea nitrogen/creatinine mass ratio 8 NRG Serum or plasma creatinine measurement w ith calculation of estimated glomerular filtration rate 13 NRG Serum or plasma glucose measurement (mass/volume) 87 mg/dL 70-105 Serum or plasma calcium measurement (mass/volume) 9.1 mg/dL 8.5-10.1 Serum or plasma total bilirubin measurement (mass/volu me) 0.6 mg/dL 0.1-1.0 Serum or plasma alkaline phosphatase oj surement (enzymatic activity/volume) 146 U/L 40-136 Serum or plasma aspartate aminotransfera se measurement (enzymatic activity/volume) 14 U/L 5-34 Serum or plasma alanine aminotransferase measurement (enzymatic activity/volume) 14 U/L 0-55 Serum or plasma protein measurement (mass/volume) 6.8 g/dL 6.4-8.2 Serum or plasma albumin measurement (mass/volume) 4.1 g/dL 3.2-4.5 Magnesium - 02/03/16 18:38 Magnesium 2.6 mg/dL 1.8-2.4 Serum or plasma creatine kinase measurem ent (enzymatic activity/volume) - 02/03/16 18:38 Serum or plasma creatine kinase measurem ent (enzymatic activity/volume) 33 U/L 29-168 Serum or plasma creatine kinase MB measu rement (enzymatic activity/volume) - 02/03/16 18:38 Serum or plasma creatine kinase MB measu rement (enzymatic activity/volume) 1.3 ng/mL <6.6 Serum or plasma troponin i.cardiac measu rement (mass/volume) - 02/03/16 18:38 Serum or plasma troponin i.cardiac measurement (mass/v olume) < ng/mL <0.30 PT panel in platelet poor plasma by coag ulation assay - 02/03/16 18:38 Prothrombin time (PT) in platelet poor plasma by coagu lation assay 12.5 s 12.2-14.7 INR in platelet poor plasma or blood by coagulation as say 1.0 0.8-1.4 Activated partial thromboplastin time (a PTT) in platelet poor plasma bycoagulation assay - 02/03/16 18:38 Activated partial thromboplastin time (a PTT) in platelet poor plasma bycoagulation assay 30 s 24-35 Serum or plasma lithium measurement (mol es/volume) - 02/03/16 18:38 BNP level 2225.8 pg/mL <100.0 Serum or plasma amylase measurement (enz ymatic activity/volume) - 02/03/16 18:38 Serum or plasma amylase measurement (enzymatic activit y/volume) 277 U/L 25-125 Lipase - 02/03/16 18:38 Lipase 116 U/L 8-78 Serum or plasma thyroxine (T4) free dayne urement (mass/volume) - 02/03/16 18:38 Serum or plasma thyroxine (T4) free measurement (mass/ volume) 0.76 ng/dL 0.70-1.48 Serum or plasma thyrotropin measurement by detection limit <=0.05 miu/l (units/volume) - 02/03/16 18:38 Serum or plasma thyrotropin measurement by detection limit <=0.05 miu/l (units/volume) 5.50 u[iU]/mL 0.35-4.94 Complete blood count (CBC) with automate d white blood cell (WBC) differential - 02/04/16 03:00 Blood leukocytes automated count (number/volume) 6.8 10*3/uL 4.3-11.0 Blood erythrocytes automated count (number/volume) 3.07 10*6/uL 4.35-5.85 Venous blood hemoglobin measurement (mass/volume) 9.3 g/dL 11.5-16.0 Blood hematocrit (volume fraction) 28 % 35-52 Automated erythrocyte mean corpuscular volume 92 [ foz_us] 80-99 Automated erythrocyte mean corpuscular h emoglobin (mass per erythrocyte) 30 pg 25-34 Automated erythrocyte mean corpuscular h emoglobin concentration measurement (mass/volume) 33 g/dL 32-36 Automated erythrocyte distribution width ratio 16. 2 % 10.0- 14.5 Automated blood platelet count [...] 10*3 1.0-4.0 Blood monocytes automated count (number/volume) 0. 6 10*3 0.0-1.0 Automated eosinophil count 0.4 10*3/uL 0 .0-0.3 Automated blood basophil count (count/volume) 0.0 10*3/uL 0.0-0.1 Activated partial thromboplastin time (a PTT) in platelet poor plasma bycoagulation assay - 02/04/16 03:00 Activated partial thromboplastin time (a PTT) in platelet poor plasma bycoagulation assay 127 s 24-35 Comprehensive metabolic panel - 02/04/16 03:00 Serum or plasma sodium measurement (moles/volume) 137 mmol/L 135-145 Serum or plasma potassium measurement (moles/volume) 4.5 mmol/L 3.6-5.0 Serum or plasma chloride measurement (moles/volume) 97 mmol/L 98-107 Carbon dioxide 28 mmol/L 21-32 Serum or plasma anion gap determination (moles/volume) 12 mmol/L 5-14 Serum or plasma urea nitrogen measurement (mass/volume ) 33 mg/dL 7-18 Serum or plasma creatinine measurement (mass/volume) 4.31 mg/dL 0.60-1.30 Serum or plasma urea nitrogen/creatinine mass ratio 8 NRG Serum or plasma creatinine measurement w ith calculation of estimated glomerular filtration rate 10 NRG Serum or plasma glucose measurement (mass/volume) 105 mg/dL 70-105 Serum or plasma calcium measurement (mass/volume) 9.1 mg/dL 8.5-10.1 Serum or plasma total bilirubin measurement (mass/volu me) 0.5 mg/dL 0.1-1.0 Serum or plasma alkaline phosphatase oj surement (enzymatic activity/volume) 120 U/L 40-136 Serum or plasma aspartate aminotransfera se measurement (enzymatic activity/volume) 13 U/L 5-34 Serum or plasma alanine aminotransferase measurement (enzymatic activity/volume) 13 U/L 0-55 Serum or plasma protein measurement (mass/volume) 5.7 g/dL 6.4-8.2 Serum or plasma albumin measurement (mass/volume) 3.5 g/dL 3.2-4.5 Serum or plasma phosphate measurement (m ass/volume) - 02/04/16 03:00 Serum or plasma phosphate measurement (mass/volume) 3.5 mg/dL 2.3-4.7 Magnesium - 02/04/16 03:00 Magnesium 2.4 mg/dL 1.8-2.4 Activated partial thromboplastin time (a PTT) in platelet poor plasma bycoagulation assay - 02/04/16 09:55 Activated partial thromboplastin time (a PTT) in platelet poor plasma bycoagulation assay 43 s 24-35 Activated partial thromboplastin time (a PTT) in platelet poor plasma bycoagulation assay - 02/04/16 16:15 Activated partial thromboplastin time (a PTT) in platelet poor plasma bycoagulation assay 193 s 24-35 Complete blood count (CBC) with automate d white blood cell (WBC) differential - 02/12/16 09:10 Blood leukocytes automated count (number/volume) 7.1 10*3/uL 4.3-11.0 Blood erythrocytes automated count (number/volume) 2.91 10*6/uL 4.35-5.85 Venous blood hemoglobin measurement (mass/volume) 9.1 g/dL 11.5-16.0 Blood hematocrit (volume fraction) 28 % 35-52 Automated erythrocyte mean corpuscular volume 95 [ foz_us] 80-99 Automated erythrocyte mean corpuscular h emoglobin (mass per erythrocyte) 31 pg 25-34 Automated erythrocyte mean corpuscular h emoglobin concentration measurement (mass/volume) 33 g/dL 32-36 Automated erythrocyte distribution width ratio 17. 0 % 10.0- 14.5 Automated blood platelet count [...] 10*3 1.0-4.0 Blood monocytes automated count (number/volume) 0. 7 10*3 0.0-1.0 Automated eosinophil count 0.3 10*3/uL 0 .0-0.3 Automated blood basophil count (count/volume) 0.1 10*3/uL 0.0-0.1 PT panel in platelet poor plasma by coag ulation assay - 02/12/16 09:10 Prothrombin time (PT) in platelet poor plasma by coagu lation assay 16.7 s 12.2-14.7 INR in platelet poor plasma or blood by coagulation as say 1.4 0.8-1.4 Activated partial thromboplastin time (a PTT) in platelet poor plasma bycoagulation assay - 02/12/16 09:10 Activated partial thromboplastin time (a PTT) in platelet poor plasma bycoagulation assay 33 s 24-35 Comprehensive metabolic panel - 02/12/16 09:10 Serum or plasma sodium measurement (moles/volume) 133 mmol/L 135-145 Serum or plasma potassium measurement (moles/volume) 4.3 mmol/L 3.6-5.0 Serum or plasma chloride measurement (moles/volume) 92 mmol/L 98-107 Carbon dioxide 28 mmol/L 21-32 Serum or plasma anion gap determination (moles/volume) 13 mmol/L 5-14 Serum or plasma urea nitrogen measurement (mass/volume ) 40 mg/dL 7-18 Serum or plasma creatinine measurement (mass/volume) 4.92 mg/dL 0.60-1.30 Serum or plasma urea nitrogen/creatinine mass ratio 8 NRG Serum or plasma creatinine measurement w ith calculation of estimated glomerular filtration rate 9 NRG Serum or plasma glucose measurement (mass/volume) 149 mg/dL 70-105 Serum or plasma calcium measurement (mass/volume) 9.0 mg/dL 8.5-10.1 Serum or plasma total bilirubin measurement (mass/volu me) 0.5 mg/dL 0.1-1.0 Serum or plasma alkaline phosphatase oj surement (enzymatic activity/volume) 123 U/L 40-136 Serum or plasma aspartate aminotransfera se measurement (enzymatic activity/volume) 43 U/L 5-34 Serum or plasma alanine aminotransferase measurement (enzymatic activity/volume) 61 U/L 0-55 Serum or plasma protein measurement (mass/volume) 6.2 g/dL 6.4-8.2 Serum or plasma albumin measurement (mass/volume) 3.7 g/dL 3.2-4.5 Magnesium - 02/12/16 09:10 Magnesium 2.6 mg/dL 1.8-2.4 Serum or plasma troponin i.cardiac measu rement (mass/volume) - 02/12/16 09:10 Serum or plasma troponin i.cardiac measurement (mass/v olume) < ng/mL <0.30 Myoglobin, serum - 02/12/16 09:10 Myoglobin, serum 121.5 ng/mL 10.0-92.0 Serum or plasma lithium measurement (mol es/volume) - 02/12/16 09:10 BNP level 2354.8 pg/mL <100.0 Complete blood count (CBC) with automate d white blood cell (WBC) differential - 10/25/16 08:55 Blood leukocytes automated count (number/volume) 5.9 10*3/uL 4.3-11.0 Blood erythrocytes automated count (number/volume) 3.72 10*6/uL 4.35-5.85 Venous blood hemoglobin measurement (mass/volume) 11.6 g/dL 11.5-16.0 Blood hematocrit (volume fraction) 36 % 35-52 Automated erythrocyte mean corpuscular volume 97 [ foz_us] 80-99 Automated erythrocyte mean corpuscular h emoglobin (mass per erythrocyte) 31 pg 25-34 Automated erythrocyte mean corpuscular h emoglobin concentration measurement (mass/volume) 32 g/dL 32-36 Automated erythrocyte distribution width ratio 16. 8 % 10.0- 14.5 Automated blood platelet count [...] 10*3 1.0-4.0 Blood monocytes automated count (number/volume) 0. 6 10*3 0.0-1.0 Automated eosinophil count 0.5 10*3/uL 0 .0-0.3 Automated blood basophil count (count/volume) 0.1 10*3/uL 0.0-0.1 PT panel in platelet poor plasma by coag ulation assay - 10/25/16 08:55 Prothrombin time (PT) in platelet poor plasma by coagu lation assay 17.2 s 12.2-14.7 INR in platelet poor plasma or blood by coagulation as say 1.4 0.8-1.4 Activated partial thromboplastin time (a PTT) in platelet poor plasma bycoagulation assay - 10/25/16 08:55 Activated partial thromboplastin time (a PTT) in platelet poor plasma bycoagulation assay 30 s 24-35 Comprehensive metabolic panel - 10/25/16 08:55 Serum or plasma sodium measurement (moles/volume) 137 mmol/L 135-145 Serum or plasma potassium measurement (moles/volume) 5.4 mmol/L 3.6-5.0 Serum or plasma chloride measurement (moles/volume) 96 mmol/L 98-107 Carbon dioxide 30 mmol/L 21-32 Serum or plasma anion gap determination (moles/volume) 11 mmol/L 5-14 Serum or plasma urea nitrogen measurement (mass/volume ) 47 mg/dL 7-18 Serum or plasma creatinine measurement (mass/volume) 4.43 mg/dL 0.60-1.30 Serum or plasma urea nitrogen/creatinine mass ratio 11 NRG Serum or plasma creatinine measurement w ith calculation of estimated glomerular filtration rate 10 NRG Serum or plasma glucose measurement (mass/volume) 118 mg/dL 70-105 Serum or plasma calcium measurement (mass/volume) 10.5 mg/dL 8.5-10.1 Serum or plasma total bilirubin measurement (mass/volu me) 0.4 mg/dL 0.1-1.0 Serum or plasma alkaline phosphatase oj surement (enzymatic activity/volume) 80 U/L 40-136 Serum or plasma aspartate aminotransfera se measurement (enzymatic activity/volume) 20 U/L 5-34 Serum or plasma alanine aminotransferase measurement (enzymatic activity/volume) 14 U/L 0-55 Serum or plasma protein measurement (mass/volume) 6.8 g/dL 6.4-8.2 Serum or plasma albumin measurement (mass/volume) 3.7 g/dL 3.2-4.5 Magnesium - 10/25/16 08:55 Magnesium 3.0 mg/dL 1.8-2.4 Serum or plasma troponin i.cardiac measu rement (mass/volume) - 10/25/16 08:55 Serum or plasma troponin i.cardiac measurement (mass/v olume) < ng/mL <0.30 Magnesium - 12/01/16 11:38 Magnesium 2.2 mg/dL 1.8-2.4 THYROID STIMULATING HORMONE - 12/01/16 1 1:38 THYROID STIMULATING HORMONE 2.23 u[iU]/mL 0.35-4.94 Serum or plasma C reactive protein measu rement (mass/volume) - 12/01/16 11:38 Serum or plasma C reactive protein measurement (mass/v olume) 0.14 mg/dL 0.00-0.50 Complete blood count (CBC) with automate d white blood cell (WBC) differential - 12/01/16 11:40 Blood leukocytes automated count (number/volume) 6.9 10*3/uL 4.3-11.0 Blood erythrocytes automated count (number/volume) 3.77 10*6/uL 4.35-5.85 Venous blood hemoglobin measurement (mass/volume) 11.8 g/dL 11.5-16.0 Blood hematocrit (volume fraction) 36 % 35-52 Automated erythrocyte mean corpuscular volume 96 [ foz_us] 80-99 Automated erythrocyte mean corpuscular h emoglobin (mass per erythrocyte) 31 pg 25-34 Automated erythrocyte mean corpuscular h emoglobin concentration measurement (mass/volume) 33 g/dL 32-36 Automated erythrocyte distribution width ratio 15. 8 % 10.0- 14.5 Automated blood platelet count [...] 10*3 1.0-4.0 Blood monocytes automated count (number/volume) 0. 4 10*3 0.0-1.0 Automated eosinophil count 0.3 10*3/uL 0 .0-0.3 Automated blood basophil count (count/volume) 0.0 10*3/uL 0.0-0.1 Comprehensive metabolic panel - 12/01/16 11:40 Serum or plasma sodium measurement (moles/volume) 140 mmol/L 135-145 Serum or plasma potassium measurement (moles/volume) 3.8 mmol/L 3.6-5.0 Serum or plasma chloride measurement (moles/volume) 93 mmol/L 98-107 Carbon dioxide 33 mmol/L 21-32 Serum or plasma anion gap determination (moles/volume) 14 mmol/L 5-14 Serum or plasma urea nitrogen measurement (mass/volume ) 14 mg/dL 7-18 Serum or plasma creatinine measurement (mass/volume) 2.61 mg/dL 0.60-1.30 Serum or plasma urea nitrogen/creatinine mass ratio 5 NRG Serum or plasma creatinine measurement w ith calculation of estimated glomerular filtration rate 18 NRG Serum or plasma glucose measurement (mass/volume) 112 mg/dL 70-105 Serum or plasma calcium measurement (mass/volume) 8.3 mg/dL 8.5-10.1 Serum or plasma total bilirubin measurement (mass/volu me) 0.4 mg/dL 0.1-1.0 Serum or plasma alkaline phosphatase oj surement (enzymatic activity/volume) 83 U/L 40-136 Serum or plasma aspartate aminotransfera se measurement (enzymatic activity/volume) 19 U/L 5-34 Serum or plasma alanine aminotransferase measurement (enzymatic activity/volume) 17 U/L 0-55 Serum or plasma protein measurement (mass/volume) 7.2 g/dL 6.4-8.2 Serum or plasma albumin measurement (mass/volume) 4.1 g/dL 3.2-4.5 Complete blood count (CBC) with automate d white blood cell (WBC) differential - 12/05/16 14:00 Blood leukocytes automated count (number/volume) 10.3 10*3/uL 4.3-11.0 Blood erythrocytes automated count (number/volume) 3.92 10*6/uL 4.35-5.85 Venous blood hemoglobin measurement (mass/volume) 12.4 g/dL 11.5-16.0 Blood hematocrit (volume fraction) 38 % 35-52 Automated erythrocyte mean corpuscular volume 97 [ foz_us] 80-99 Automated erythrocyte mean corpuscular h emoglobin (mass per erythrocyte) 32 pg 25-34 Automated erythrocyte mean corpuscular h emoglobin concentration measurement (mass/volume) 33 g/dL 32-36 Automated erythrocyte distribution width ratio 16. 3 % 10.0- 14.5 Automated blood platelet count [...] 10*3 1.0-4.0 Blood monocytes automated count (number/volume) 0. 5 10*3 0.0-1.0 Automated eosinophil count 0.3 10*3/uL 0 .0-0.3 Automated blood basophil count (count/volume) 0.0 10*3/uL 0.0-0.1 PT panel in platelet poor plasma by coag ulation assay - 12/05/16 14:00 Prothrombin time (PT) in platelet poor plasma by coagu lation assay 15.7 s 12.2-14.7 INR in platelet poor plasma or blood by coagulation as say 1.2 0.8-1.4 Activated partial thromboplastin time (a PTT) in platelet poor plasma bycoagulation assay - 12/05/16 14:00 Activated partial thromboplastin time (a PTT) in platelet poor plasma bycoagulation assay 28 s 24-35 Comprehensive metabolic panel - 12/05/16 14:00 Serum or plasma sodium measurement (moles/volume) 136 mmol/L 135-145 Serum or plasma potassium measurement (moles/volume) 5.0 mmol/L 3.6-5.0 Serum or plasma chloride measurement (moles/volume) 94 mmol/L 98-107 Carbon dioxide 30 mmol/L 21-32 Serum or plasma anion gap determination (moles/volume) 12 mmol/L 5-14 Serum or plasma urea nitrogen measurement (mass/volume ) 18 mg/dL 7-18 Serum or plasma creatinine measurement (mass/volume) 2.85 mg/dL 0.60-1.30 Serum or plasma urea nitrogen/creatinine mass ratio 6 NRG Serum or plasma creatinine measurement w ith calculation of estimated glomerular filtration rate 16 NRG Serum or plasma glucose measurement (mass/volume) 100 mg/dL 70-105 Serum or plasma calcium measurement (mass/volume) 8.5 mg/dL 8.5-10.1 Serum or plasma total bilirubin measurement (mass/volu me) 0.5 mg/dL 0.1-1.0 Serum or plasma alkaline phosphatase oj surement (enzymatic activity/volume) 95 U/L 40-136 Serum or plasma aspartate aminotransfera se measurement (enzymatic activity/volume) 23 U/L 5-34 Serum or plasma alanine aminotransferase measurement (enzymatic activity/volume) 26 U/L 0-55 Serum or plasma protein measurement (mass/volume) 7.1 g/dL 6.4-8.2 Serum or plasma albumin measurement (mass/volume) 4.1 g/dL 3.2-4.5 Blood manual differential performed dete ction - 12/05/16 14:00 Blood monocytes/100 leukocytes 3 % NRG Manual blood segmented neutrophils/100 leukocytes 90 % NRG Manual blood lymphocytes/100 leukocytes 4 % NRG Manual eosinophils/100 leukocytes in nose 3 % NRG Blood erythrocyte morphology finding identification NORMAL NRG Capillary blood glucose measurement by g lucometer (mass/volume) - 12/05/16 14:51 Capillary blood glucose measurement by glucometer (mas s/volume) 120 mg/dL 70-110 Automated blood complete blood count (he mogram) panel - 12/07/16 05:45 Blood leukocytes automated count (number/volume) 9.5 10*3/uL 4.3-11.0 Blood erythrocytes automated count (number/volume) 3.88 10*6/uL 4.35-5.85 Venous blood hemoglobin measurement (mass/volume) 12.3 g/dL 11.5-16.0 Blood hematocrit (volume fraction) 37 % 35-52 Automated erythrocyte mean corpuscular volume 96 [ foz_us] 80-99 Automated erythrocyte mean corpuscular h emoglobin (mass per erythrocyte) 32 pg 25-34 Automated erythrocyte mean corpuscular h emoglobin concentration measurement (mass/volume) 33 g/dL 32-36 Automated erythrocyte distribution width ratio 16. 2 % 10.0- 14.5 Automated blood platelet count (count/volume) 145 10*3/uL 130-400 Automated blood platelet mean volume measurement 10.7 [foz_us] 7.4-10.4 Whole blood basic metabolic panel - 11/27 04/14 05:45 Serum or plasma sodium measurement (moles/volume) 133 mmol/L 135-145 Serum or plasma potassium measurement (moles/volume) 5.6 mmol/L 3.6-5.0 Serum or plasma chloride measurement (moles/volume) 89 mmol/L 98-107 Carbon dioxide 29 mmol/L 21-32 Serum or plasma anion gap determination (moles/volume) 15 mmol/L 5-14 Serum or plasma urea nitrogen measurement (mass/volume ) 44 mg/dL 7-18 Serum or plasma creatinine measurement (mass/volume) 5.95 mg/dL 0.60-1.30 Serum or plasma urea nitrogen/creatinine mass ratio 7 NRG Serum or plasma creatinine measurement w ith calculation of estimated glomerular filtration rate 7 NRG Serum or plasma glucose measurement (mass/volume) 97 mg/dL 70-105 Serum or plasma calcium measurement (mass/volume) 9.6 mg/dL 8.5-10.1 PT panel in platelet poor plasma by coag ulation assay - 12/07/16 05:45 Prothrombin time (PT) in platelet poor plasma by coagu lation assay 14.5 s 12.2-14.7 INR in platelet poor plasma or blood by coagulation as say 1.1 0.8-1.4 Complete blood count (CBC) with automate d white blood cell (WBC) differential - 12/08/16 06:00 Blood leukocytes automated count (number/volume) 9.2 10*3/uL 4.3-11.0 Blood erythrocytes automated count (number/volume) 3.80 10*6/uL 4.35-5.85 Venous blood hemoglobin measurement (mass/volume) 12.0 g/dL 11.5-16.0 Blood hematocrit (volume fraction) 36 % 35-52 Automated erythrocyte mean corpuscular volume 95 [ foz_us] 80-99 Automated erythrocyte mean corpuscular h emoglobin (mass per erythrocyte) 32 pg 25-34 Automated erythrocyte mean corpuscular h emoglobin concentration measurement (mass/volume) 33 g/dL 32-36 Automated erythrocyte distribution width ratio 16. 1 % 10.0- 14.5 Automated blood platelet count (count/volume) 140 10*3/uL 130-400 Automated blood platelet mean volume measurement 10.6 [foz_us] 7.4-10.4 Automated blood neutrophils/100 leukocytes 75 % 42-75 Automated blood lymphocytes/100 leukocytes 9 % 12-44 Blood monocytes/100 leukocytes 8 % 0-12 Automated blood eosinophils/100 leukocytes 8 % 0-10 Automated blood basophils/100 leukocytes 0 % 0-10 Blood neutrophils automated count (number/volume) 6.9 10*3 1.8-7.8 Blood lymphocytes automated count (number/volume) 0.9 10*3 1.0-4.0 Blood monocytes automated count (number/volume) 0. 7 10*3 0.0-1.0 Automated eosinophil count 0.7 10*3/uL 0 .0-0.3 Automated blood basophil count (count/volume) 0.0 10*3/uL 0.0-0.1 Comprehensive metabolic panel - 12/08/16 06:00 Serum or plasma sodium measurement (moles/volume) 130 mmol/L 135-145 Serum or plasma potassium measurement (moles/volume) 6.6 mmol/L 3.6-5.0 Serum or plasma chloride measurement (moles/volume) 87 mmol/L 98-107 Carbon dioxide 25 mmol/L 21-32 Serum or plasma anion gap determination (moles/volume) 18 mmol/L 5-14 Serum or plasma urea nitrogen measurement (mass/volume ) 63 mg/dL 7-18 Serum or plasma creatinine measurement (mass/volume) 7.12 mg/dL 0.60-1.30 Serum or plasma urea nitrogen/creatinine mass ratio 9 NRG Serum or plasma creatinine measurement w ith calculation of estimated glomerular filtration rate 6 NRG Serum or plasma glucose measurement (mass/volume) 81 mg/dL 70-105 Serum or plasma calcium measurement (mass/volume) 9.2 mg/dL 8.5-10.1 Serum or plasma total bilirubin measurement (mass/volu me) 0.4 mg/dL 0.1-1.0 Serum or plasma alkaline phosphatase oj surement (enzymatic activity/volume) 86 U/L 40-136 Serum or plasma aspartate aminotransfera se measurement (enzymatic activity/volume) 15 U/L 5-34 Serum or plasma alanine aminotransferase measurement (enzymatic activity/volume) 15 U/L 0-55 Serum or plasma protein measurement (mass/volume) 7.1 g/dL 6.4-8.2 Serum or plasma albumin measurement (mass/volume) 3.7 g/dL 3.2-4.5 Complete urinalysis with reflex to cultu re - 03/07/17 21:42 Urine color determination YELLOW NRG Urine clarity determination SLIGHTLY CLOUDY NRG Urine pH measurement by test strip 8 5-9 Specific gravity of urine by test strip 1.010 1.016-1.022 Urine protein assay by test strip, semi-quantitative 3+ NEGATIVE Urine glucose detection by automated test strip NE GATIVE NEGATIVE Erythrocytes detection in urine sediment by light micr oscopy 2+ NEGATIVE Urine ketones detection by automated test strip NE GATIVE NEGATIVE Urine nitrite detection by test strip NEGATIVE NEGATIVE Urine total bilirubin detection by test strip NEGA TIVE NEGATIVE Urine urobilinogen measurement by automated test strip (mass/volume) NORMAL NORMAL Urine leukocyte esterase detection by dipstick 1+ NEGATIVE Automated urine sediment erythrocyte cou nt by microscopy (number/high power field) RARE NRG Automated urine sediment leukocyte count by microscopy (number/high power field) [HPF] NRG Bacteria detection in urine sediment by light microsco py TRACE NRG Squamous epithelial cells detection in u rine sediment by light microscopy 5-10 NRG Crystals detection in urine sediment by light microsco py NONE NRG Casts detection in urine sediment by light microscopy NONE NRG Mucus detection in urine sediment by light microscopy NEGATIVE NRG Complete urinalysis with reflex to culture NO NRG Complete blood count (CBC) with automate d white blood cell (WBC) differential - 03/07/17 21:48 Blood leukocytes automated count (number/volume) 7.1 10*3/uL 4.3-11.0 Blood erythrocytes automated count (number/volume) 3.44 10*6/uL 4.35-5.85 Venous blood hemoglobin measurement (mass/volume) 10.6 g/dL 11.5-16.0 Blood hematocrit (volume fraction) 33 % 35-52 Automated erythrocyte mean corpuscular volume 96 [ foz_us] 80-99 Automated erythrocyte mean corpuscular h emoglobin (mass per erythrocyte) 31 pg 25-34 Automated erythrocyte mean corpuscular h emoglobin concentration measurement (mass/volume) 32 g/dL 32-36 Automated erythrocyte distribution width ratio 16. 4 % 10.0- 14.5 Automated blood platelet count [...] 10*3 1.0-4.0 Blood monocytes automated count (number/volume) 0. 6 10*3 0.0-1.0 Automated eosinophil count 0.4 10*3/uL 0 .0-0.3 Automated blood basophil count (count/volume) 0.1 10*3/uL 0.0-0.1 Comprehensive metabolic panel - 03/07/17 21:48 Serum or plasma sodium measurement (moles/volume) 136 mmol/L 135-145 Serum or plasma potassium measurement (moles/volume) 4.1 mmol/L 3.6-5.0 Serum or plasma chloride measurement (moles/volume) 92 mmol/L 98-107 Carbon dioxide 27 mmol/L 21-32 Serum or plasma anion gap determination (moles/volume) 17 mmol/L 5-14 Serum or plasma urea nitrogen measurement (mass/volume ) 47 mg/dL 7-18 Serum or plasma creatinine measurement (mass/volume) 5.69 mg/dL 0.60-1.30 Serum or plasma urea nitrogen/creatinine mass ratio 8 NRG Serum or plasma creatinine measurement w ith calculation of estimated glomerular filtration rate 7 NRG Serum or plasma glucose measurement (mass/volume) 84 mg/dL 70-105 Serum or plasma calcium measurement (mass/volume) 8.6 mg/dL 8.5-10.1 Serum or plasma total bilirubin measurement (mass/volu me) 0.4 mg/dL 0.1-1.0 Serum or plasma alkaline phosphatase oj surement (enzymatic activity/volume) 97 U/L 40-136 Serum or plasma aspartate aminotransfera se measurement (enzymatic activity/volume) 19 U/L 5-34 Serum or plasma alanine aminotransferase measurement (enzymatic activity/volume) 24 U/L 0-55 Serum or plasma protein measurement (mass/volume) 7.2 g/dL 6.4-8.2 Serum or plasma albumin measurement (mass/volume) 4.0 g/dL 3.2-4.5 RED CELLS LEUKO REDUCED AS1 - 04/01/17 1 1:51 RED CELLS LEUKO REDUCED AS1 T RANSFUSED 04/01/17 1237 NRG Blood type T Indirect antibody screen pa sobia - 04/01/17 11:51 ABO+Rh group OP NRG Transfusion band number [id number] [facility] Blood group antibody screen NEGATIVE NR G Whole blood hemoglobin and hematocrit pa sobia - 04/01/17 15:00 Venous blood hemoglobin measurement (mass/volume) 8.8 g/dL 11.5-16.0 Blood hematocrit (volume fraction) 24 % 35-52 Complete blood count (CBC) with automate d white blood cell (WBC) differential - 04/12/17 12:50 Blood leukocytes automated count (number/volume) 6.8 10*3/uL 4.3-11.0 Blood erythrocytes automated count (number/volume) 3.00 10*6/uL 4.35-5.85 Venous blood hemoglobin measurement (mass/volume) 9.4 g/dL 11.5-16.0 Blood hematocrit (volume fraction) 29 % 35-52 Automated erythrocyte mean corpuscular volume 97 [ foz_us] 80-99 Automated erythrocyte mean corpuscular h emoglobin (mass per erythrocyte) 31 pg 25-34 Automated erythrocyte mean corpuscular h emoglobin concentration measurement (mass/volume) 32 g/dL 32-36 Automated erythrocyte distribution width ratio 15. 6 % 10.0- 14.5 Automated blood platelet count [...] 10*3 1.0-4.0 Blood monocytes automated count (number/volume) 0. 5 10*3 0.0-1.0 Automated eosinophil count 0.3 10*3/uL 0 .0-0.3 Automated blood basophil count (count/volume) 0.1 10*3/uL 0.0-0.1 Comprehensive metabolic panel - 04/12/17 12:50 Serum or plasma sodium measurement (moles/volume) 137 mmol/L 135-145 Serum or plasma potassium measurement (moles/volume) 3.8 mmol/L 3.6-5.0 Serum or plasma chloride measurement (moles/volume) 96 mmol/L 98-107 Carbon dioxide 26 mmol/L 21-32 Serum or plasma anion gap determination (moles/volume) 15 mmol/L 5-14 Serum or plasma urea nitrogen measurement (mass/volume ) 55 mg/dL 7-18 Serum or plasma creatinine measurement (mass/volume) 6.26 mg/dL 0.60-1.30 Serum or plasma urea nitrogen/creatinine mass ratio 9 NRG Serum or plasma creatinine measurement w ith calculation of estimated glomerular filtration rate 6 NRG Serum or plasma glucose measurement (mass/volume) 84 mg/dL 70-105 Serum or plasma calcium measurement (mass/volume) 9.0 mg/dL 8.5-10.1 Serum or plasma total bilirubin measurement (mass/volu me) 0.4 mg/dL 0.1-1.0 Serum or plasma alkaline phosphatase oj surement (enzymatic activity/volume) 91 U/L 40-136 Serum or plasma aspartate aminotransfera se measurement (enzymatic activity/volume) 30 U/L 5-34 Serum or plasma alanine aminotransferase measurement (enzymatic activity/volume) 34 U/L 0-55 Serum or plasma protein measurement (mass/volume) 6.6 g/dL 6.4-8.2 Serum or plasma albumin measurement (mass/volume) 4.0 g/dL 3.2-4.5 Serum or plasma troponin i.cardiac measu rement (mass/volume) - 04/12/17 12:50 Serum or plasma troponin i.cardiac measurement (mass/v olume) < ng/mL <0.30 Serum or plasma lithium measurement (mol es/volume) - 04/12/17 12:50 BNP level 3056.6 pg/mL <100.0 Influenza virus A and B antigen detectio n - 04/12/17 13:24 FLU RESULT NEGATIVE FOR INFLUENZA A AND B ANTIGENS BY IA NR Automated blood complete blood count (he mogram) panel - 04/20/17 17:48 Blood leukocytes automated count (number/volume) 5.3 10*3/uL 4.3-11.0 Blood erythrocytes automated count (number/volume) 3.21 10*6/uL 4.35-5.85 Venous blood hemoglobin measurement (mass/volume) 10.2 g/dL 11.5-16.0 Blood hematocrit (volume fraction) 31 % 35-52 Automated erythrocyte mean corpuscular volume 97 [ foz_us] 80-99 Automated erythrocyte mean corpuscular h emoglobin (mass per erythrocyte) 32 pg 25-34 Automated erythrocyte mean corpuscular h emoglobin concentration measurement (mass/volume) 33 g/dL 32-36 Automated erythrocyte distribution width ratio 16. 3 % 10.0- 14.5 Automated blood platelet count (count/volume) 205 10*3/uL 130-400 Automated blood platelet mean volume measurement 10.2 [foz_us] 7.4-10.4 Complete blood count (CBC) with automate d white blood cell (WBC) differential - 05/29/17 20:52 Blood leukocytes automated count (number/volume) 8.3 10*3/uL 4.3-11.0 Blood erythrocytes automated count (number/volume) 3.76 10*6/uL 4.35-5.85 Venous blood hemoglobin measurement (mass/volume) 11.8 g/dL 11.5-16.0 Blood hematocrit (volume fraction) 35 % 35-52 Automated erythrocyte mean corpuscular volume 94 [ foz_us] 80-99 Automated erythrocyte mean corpuscular h emoglobin (mass per erythrocyte) 31 pg 25-34 Automated erythrocyte mean corpuscular h emoglobin concentration measurement (mass/volume) 33 g/dL 32-36 Automated erythrocyte distribution width ratio 14. 9 % 10.0- 14.5 Automated blood platelet count [...] 10*3 1.0-4.0 Blood monocytes automated count (number/volume) 0. 7 10*3 0.0-1.0 Automated eosinophil count 0.2 10*3/uL 0 .0-0.3 Automated blood basophil count (count/volume) 0.0 10*3/uL 0.0-0.1 PT panel in platelet poor plasma by coag ulation assay - 05/29/17 20:52 Prothrombin time (PT) in platelet poor plasma by coagu lation assay 13.1 s 12.2-14.7 INR in platelet poor plasma or blood by coagulation as say 1.0 0.8-1.4 Activated partial thromboplastin time (a PTT) in platelet poor plasma bycoagulation assay - 05/29/17 20:52 Activated partial thromboplastin time (a PTT) in platelet poor plasma bycoagulation assay 89 s 24-35 Comprehensive metabolic panel - 05/29/17 20:52 Serum or plasma sodium measurement (moles/volume) 135 mmol/L 135-145 Serum or plasma potassium measurement (moles/volume) 4.4 mmol/L 3.6-5.0 Serum or plasma chloride measurement (moles/volume) 97 mmol/L 98-107 Carbon dioxide 24 mmol/L 21-32 Serum or plasma anion gap determination (moles/volume) 14 mmol/L 5-14 Serum or plasma urea nitrogen measurement (mass/volume ) 23 mg/dL 7-18 Serum or plasma creatinine measurement (mass/volume) 3.48 mg/dL 0.60-1.30 Serum or plasma urea nitrogen/creatinine mass ratio 7 NRG Serum or plasma creatinine measurement w ith calculation of estimated glomerular filtration rate 13 NRG Serum or plasma glucose measurement (mass/volume) 91 mg/dL 70-105 Serum or plasma calcium measurement (mass/volume) 8.5 mg/dL 8.5-10.1 Serum or plasma total bilirubin measurement (mass/volu me) 0.4 mg/dL 0.1-1.0 Serum or plasma alkaline phosphatase oj surement (enzymatic activity/volume) 75 U/L 40-136 Serum or plasma aspartate aminotransfera se measurement (enzymatic activity/volume) 23 U/L 5-34 Serum or plasma alanine aminotransferase measurement (enzymatic activity/volume) 18 U/L 0-55 Serum or plasma protein measurement (mass/volume) 6.8 g/dL 6.4-8.2 Serum or plasma albumin measurement (mass/volume) 3.9 g/dL 3.2-4.5 Serum or plasma C reactive protein measu rement (mass/volume) - 05/29/17 20:52 Serum or plasma C reactive protein measurement (mass/v olume) 2.39 mg/dL 0.00-0.50 Bacterial blood culture - 05/29/17 20:52 Bacterial blood culture NG NRG Blood lactic acid measurement (moles/vol ume) - 05/29/17 21:20 Blood lactic acid measurement (moles/volume) 0.85 mmol/L 0.50-2.00 Bacterial blood culture - 05/29/17 21:20 Bacterial blood culture NG NRG STOOL (C-DIFF) - 06/14/17 13:24 CLOSTRIDIUM DIFFICILE TOXIN/GDH W/REFL TO PCR SEE NOTE NRG Blood CBC with ordered manual differenti al panel - 04/13/18 15:30 Blood leukocytes automated count (number/volume) 4.7 10*3/uL 4.3-11.0 Blood erythrocytes automated count (number/volume) 3.35 10*6/uL 4.35-5.85 Venous blood hemoglobin measurement (mass/volume) 10.4 g/dL 11.5-16.0 Blood hematocrit (volume fraction) 32 % 35-52 Automated erythrocyte mean corpuscular volume 96 [ foz_us] 80-99 Automated erythrocyte mean corpuscular h emoglobin (mass per erythrocyte) 31 pg 25-34 Automated erythrocyte mean corpuscular h emoglobin concentration measurement (mass/volume) 32 g/dL 32-36 Automated erythrocyte distribution width ratio 17. 7 % 10.0- 14.5 Automated blood platelet count [...] 10*3 1.0-4.0 Blood monocytes automated count (number/volume) 0. 4 10*3 0.0-1.0 Automated eosinophil count 0.2 10*3/uL 0 .0-0.3 Automated blood basophil count (count/volume) 0.0 10*3/uL 0.0-0.1 Manual blood segmented neutrophils/100 leukocytes 60 % NRG Blood band neutrophils/100 leukocytes 1 % NRG Manual blood lymphocytes/100 leukocytes 30 % NRG Manual eosinophils/100 leukocytes in nose 2 % NRG Manual blood basophils/100 leukocytes 0 % NRG Blood anisocytosis detection by light microscopy S LIGHT NR Comprehensive metabolic panel - 04/13/18 15:30 Serum or plasma sodium measurement (moles/volume) 140 mmol/L 135-145 Serum or plasma potassium measurement (moles/volume) 4.5 mmol/L 3.6-5.0 Serum or plasma chloride measurement (moles/volume) 98 mmol/L 98-107 Carbon dioxide 29 mmol/L 21-32 Serum or plasma anion gap determination (moles/volume) 13 mmol/L 5-14 Serum or plasma urea nitrogen measurement (mass/volume ) 24 mg/dL 7-18 Serum or plasma creatinine measurement (mass/volume) 4.25 mg/dL 0.60-1.30 Serum or plasma urea nitrogen/creatinine mass ratio 6 NRG Serum or plasma creatinine measurement w ith calculation of estimated glomerular filtration rate 10 NRG Serum or plasma glucose measurement (mass/volume) 81 mg/dL 70-105 Serum or plasma calcium measurement (mass/volume) 8.5 mg/dL 8.5-10.1 Serum or plasma total bilirubin measurement (mass/volu me) 0.4 mg/dL 0.1-1.0 Serum or plasma alkaline phosphatase oj surement (enzymatic activity/volume) 63 U/L 40-136 Serum or plasma aspartate aminotransfera se measurement (enzymatic activity/volume) 25 U/L 5-34 Serum or plasma alanine aminotransferase measurement (enzymatic activity/volume) 17 U/L 0-55 Serum or plasma protein measurement (mass/volume) 5.8 g/dL 6.4-8.2 Serum or plasma albumin measurement (mass/volume) 3.6 g/dL 3.2-4.5 CALCIUM CORRECTED 8.8 mg/dL 8.5-10.1 Serum or plasma troponin i.cardiac measu rement (mass/volume) - 04/13/18 15:30 Serum or plasma troponin i.cardiac measurement (mass/v olume) < ng/mL <0.028 Influenza virus A and B antigen detectio n - 04/13/18 15:30 FLU RESULT NEGATIVE FOR INFLUENZA A AND B ANTIGENS BY IA NRG THYROID STIMULATING HORMONE - 04/13/18 1 5:30 THYROID STIMULATING HORMONE 3.17 u[iU]/mL 0.35-4.94 Serum or plasma thyroxine (T4) free dayne urement (mass/volume) - 04/13/18 15:30 Serum or plasma thyroxine (T4) free measurement (mass/ volume) 0.92 ng/dL 0.70-1.48 Bacterial blood culture - 04/13/18 15:30 Bacterial blood culture NG NRG Bacterial blood culture - 04/13/18 16:35 Bacterial blood culture NG NR Complete blood count (CBC) with automate d white blood cell (WBC) differential - 08/08/18 13:55 Blood leukocytes automated count (number/volume) 9.5 10*3/uL 4.3-11.0 Blood erythrocytes automated count (number/volume) 3.42 10*6/uL 4.35-5.85 Venous blood hemoglobin measurement (mass/volume) 10.7 g/dL 11.5-16.0 Blood hematocrit (volume fraction) 33 % 35-52 Automated erythrocyte mean corpuscular volume 97 [ foz_us] 80-99 Automated erythrocyte mean corpuscular h emoglobin (mass per erythrocyte) 31 pg 25-34 Automated erythrocyte mean corpuscular h emoglobin concentration measurement (mass/volume) 32 g/dL 32-36 Automated erythrocyte distribution width ratio 16. 1 % 10.0- 14.5 Automated blood platelet count [...] 10*3 1.0-4.0 Blood monocytes automated count (number/volume) 0. 5 10*3 0.0-1.0 Automated eosinophil count 0.0 10*3/uL 0 .0-0.3 Automated blood basophil count (count/volume) 0.0 10*3/uL 0.0-0.1 Comprehensive metabolic panel - 08/08/18 13:55 Serum or plasma sodium measurement (moles/volume) 140 mmol/L 135-145 Serum or plasma potassium measurement (moles/volume) 3.9 mmol/L 3.6-5.0 Serum or plasma chloride measurement (moles/volume) 94 mmol/L 98-107 Carbon dioxide 31 mmol/L 21-32 Serum or plasma anion gap determination (moles/volume) 15 mmol/L 5-14 Serum or plasma urea nitrogen measurement (mass/volume ) 36 mg/dL 7-18 Serum or plasma creatinine measurement (mass/volume) 6.26 mg/dL 0.60-1.30 Serum or plasma urea nitrogen/creatinine mass ratio 6 NRG Serum or plasma creatinine measurement w ith calculation of estimated glomerular filtration rate 6 NRG Serum or plasma glucose measurement (mass/volume) 135 mg/dL 70-105 Serum or plasma calcium measurement (mass/volume) 10.6 mg/dL 8.5-10.1 Serum or plasma total bilirubin measurement (mass/volu me) 0.6 mg/dL 0.1-1.0 Serum or plasma alkaline phosphatase oj surement (enzymatic activity/volume) 94 U/L 40-136 Serum or plasma aspartate aminotransfera se measurement (enzymatic activity/volume) 15 U/L 5-34 Serum or plasma alanine aminotransferase measurement (enzymatic activity/volume) 13 U/L 0-55 Serum or plasma protein measurement (mass/volume) 6.6 g/dL 6.4-8.2 Serum or plasma albumin measurement (mass/volume) 4.1 g/dL 3.2-4.5 CALCIUM CORRECTED 10.5 mg/dL 8.5-10.1 Magnesium - 08/08/18 13:55 Magnesium 2.6 mg/dL 1.8-2.4 Serum or plasma C reactive protein measu rement (mass/volume) - 08/08/18 13:55 Serum or plasma C reactive protein measurement (mass/v olume) 2.01 mg/dL 0.00-0.50 Blood manual differential performed dete ction - 08/08/18 13:55 Blood monocytes/100 leukocytes 0 % NRG Manual blood segmented neutrophils/100 leukocytes 88 % NRG Blood band neutrophils/100 leukocytes 1 % NRG Manual blood lymphocytes/100 leukocytes 10 % NRG Manual eosinophils/100 leukocytes in nose 1 % NRG Manual blood basophils/100 leukocytes 0 % NRG Blood anisocytosis detection by light microscopy S LIGHT NRG Blood ovalocytes detection by light microscopy SLI GHT NRG Complete urinalysis with reflex to cultu re - 08/08/18 14:12 Urine color determination YELLOW NRG Urine clarity determination SLIGHTLY CLOUDY NRG Urine pH measurement by test strip 9 5-9 Specific gravity of urine by test strip 1.015 1.016-1.022 Urine protein assay by test strip, semi-quantitative 3+ NEGATIVE Urine glucose detection by automated test strip NE GATIVE NEGATIVE Erythrocytes detection in urine sediment by light micr oscopy NEGATIVE NEGATIVE Urine ketones detection by automated test strip NE GATIVE NEGATIVE Urine nitrite detection by test strip NEGATIVE NEGATIVE Urine total bilirubin detection by test strip NEGA TIVE NEGATIVE Urine urobilinogen measurement by automated test strip (mass/volume) NORMAL NORMAL Urine leukocyte esterase detection by dipstick NEG ATIVE NEGATIVE Automated urine sediment erythrocyte cou nt by microscopy (number/high power field) RARE NRG Automated urine sediment leukocyte count by microscopy (number/high power field) RARE NRG Bacteria detection in urine sediment by light microsco py NEGATIVE NRG Squamous epithelial cells detection in u rine sediment by light microscopy RARE NRG Crystals detection in urine sediment by light microsco py NONE NRG Casts detection in urine sediment by light microscopy NONE NRG Mucus detection in urine sediment by light microscopy NEGATIVE NRG Complete urinalysis with reflex to culture NO NRG Complete blood count (CBC) with automate d white blood cell (WBC) differential - 08/10/18 17:15 Blood leukocytes automated count (number/volume) 7.0 10*3/uL 4.3-11.0 Blood erythrocytes automated count (number/volume) 3.54 10*6/uL 4.35-5.85 Venous blood hemoglobin measurement (mass/volume) 11.0 g/dL 11.5-16.0 Blood hematocrit (volume fraction) 34 % 35-52 Automated erythrocyte mean corpuscular volume 97 [ foz_us] 80-99 Automated erythrocyte mean corpuscular h emoglobin (mass per erythrocyte) 31 pg 25-34 Automated erythrocyte mean corpuscular h emoglobin concentration measurement (mass/volume) 32 g/dL 32-36 Automated erythrocyte distribution width ratio 15. 4 % 10.0- 14.5 Automated blood platelet count [...] 10*3 1.0-4.0 Blood monocytes automated count (number/volume) 0. 7 10*3 0.0-1.0 Automated eosinophil count 0.1 10*3/uL 0 .0-0.3 Automated blood basophil count (count/volume) 0.0 10*3/uL 0.0-0.1 Comprehensive metabolic panel - 08/10/18 17:15 Serum or plasma sodium measurement (moles/volume) 135 mmol/L 135-145 Serum or plasma potassium measurement (moles/volume) 4.3 mmol/L 3.6-5.0 Serum or plasma chloride measurement (moles/volume) 92 mmol/L 98-107 Carbon dioxide 30 mmol/L 21-32 Serum or plasma anion gap determination (moles/volume) 13 mmol/L 5-14 Serum or plasma urea nitrogen measurement (mass/volume ) 23 mg/dL 7-18 Serum or plasma creatinine measurement (mass/volume) 5.11 mg/dL 0.60-1.30 Serum or plasma urea nitrogen/creatinine mass ratio 5 NRG Serum or plasma creatinine measurement w ith calculation of estimated glomerular filtration rate 8 NRG Serum or plasma glucose measurement (mass/volume) 102 mg/dL 70-105 Serum or plasma calcium measurement (mass/volume) 9.9 mg/dL 8.5-10.1 Serum or plasma total bilirubin measurement (mass/volu me) 0.5 mg/dL 0.1-1.0 Serum or plasma alkaline phosphatase oj surement (enzymatic activity/volume) 86 U/L 40-136 Serum or plasma aspartate aminotransfera se measurement (enzymatic activity/volume) 18 U/L 5-34 Serum or plasma alanine aminotransferase measurement (enzymatic activity/volume) 13 U/L 0-55 Serum or plasma protein measurement (mass/volume) 6.4 g/dL 6.4-8.2 Serum or plasma albumin measurement (mass/volume) 3.9 g/dL 3.2-4.5 CALCIUM CORRECTED 10.0 mg/dL 8.5-10.1 Magnesium - 08/10/18 17:15 Magnesium 2.3 mg/dL 1.8-2.4 Serum or plasma lithium measurement (mol es/volume) - 08/10/18 17:15 BNP level 3818.8 pg/mL <100.0 Serum or plasma troponin i.cardiac measu rement (mass/volume) - 08/10/18 17:15 Serum or plasma troponin i.cardiac measurement (mass/v olume) 0.030 ng/mL <0.028 Complete blood count (CBC) with automate d white blood cell (WBC) differential - 09/07/18 18:15 Blood leukocytes automated count (number/volume) 6.2 10*3/uL 4.3-11.0 Blood erythrocytes automated count (number/volume) 3.23 10*6/uL 4.35-5.85 Venous blood hemoglobin measurement (mass/volume) 10.1 g/dL 11.5-16.0 Blood hematocrit (volume fraction) 32 % 35-52 Automated erythrocyte mean corpuscular volume 99 [ foz_us] 80-99 Automated erythrocyte mean corpuscular h emoglobin (mass per erythrocyte) 31 pg 25-34 Automated erythrocyte mean corpuscular h emoglobin concentration measurement (mass/volume) 32 g/dL 32-36 Automated erythrocyte distribution width ratio 17. 7 % 10.0- 14.5 Automated blood platelet count (count/volume) 187 10*3/uL 130-400 Automated blood platelet mean volume measurement 10.4 [foz_us] 7.4-10.4 Automated blood neutrophils/100 leukocytes 75 % 42-75 Automated blood lymphocytes/100 leukocytes 14 % 12-44 Blood monocytes/100 leukocytes 9 % 0-12 Automated blood eosinophils/100 leukocytes 2 % 0-10 Automated blood basophils/100 leukocytes 0 % 0-10 Blood neutrophils automated count (number/volume) 4.6 10*3 1.8-7.8 Blood lymphocytes automated count (number/volume) 0.9 10*3 1.0-4.0 Blood monocytes automated count (number/volume) 0. 6 10*3 0.0-1.0 Automated eosinophil count 0.1 10*3/uL 0 .0-0.3 Automated blood basophil count (count/volume) 0.0 10*3/uL 0.0-0.1 Comprehensive metabolic panel - 09/07/18 18:15 Serum or plasma sodium measurement (moles/volume) 143 mmol/L 135-145 Serum or plasma potassium measurement (moles/volume) 4.0 mmol/L 3.6-5.0 Serum or plasma chloride measurement (moles/volume) 94 mmol/L 98-107 Carbon dioxide 31 mmol/L 21-32 Serum or plasma anion gap determination (moles/volume) 18 mmol/L 5-14 Serum or plasma urea nitrogen measurement (mass/volume ) 22 mg/dL 7-18 Serum or plasma creatinine measurement (mass/volume) 3.73 mg/dL 0.60-1.30 Serum or plasma urea nitrogen/creatinine mass ratio 6 NRG Serum or plasma creatinine measurement w ith calculation of estimated glomerular filtration rate 12 NRG Serum or plasma glucose measurement (mass/volume) 95 mg/dL 70-105 Serum or plasma calcium measurement (mass/volume) 9.3 mg/dL 8.5-10.1 Serum or plasma total bilirubin measurement (mass/volu me) 0.4 mg/dL 0.1-1.0 Serum or plasma alkaline phosphatase oj surement (enzymatic activity/volume) 97 U/L 40-136 Serum or plasma aspartate aminotransfera se measurement (enzymatic activity/volume) 11 U/L 5-34 Serum or plasma alanine aminotransferase measurement (enzymatic activity/volume) 9 U/L 0-55 Serum or plasma protein measurement (mass/volume) 6.7 g/dL 6.4-8.2 Serum or plasma albumin measurement (mass/volume) 3.9 g/dL 3.2-4.5 CALCIUM CORRECTED 9.4 mg/dL 8.5-10.1 Serum or plasma C reactive protein measu rement (mass/volume) - 09/07/18 18:15 Serum or plasma C reactive protein measurement (mass/v olume) 1.11 mg/dL 0.00-0.50 CULTURE, STOOL - 10/31/18 14:44 SALMONELLA AND SHIGELLA, CULTURE SEE NOTE NR Complete blood count (CBC) with automate d white blood cell (WBC) differential - 11/04/18 18:50 Blood leukocytes automated count (number/volume) 6.7 10*3/uL 4.3-11.0 Blood erythrocytes automated count (number/volume) 3.42 10*6/uL 4.35-5.85 Venous blood hemoglobin measurement (mass/volume) 9.9 g/dL 11.5-16.0 Blood hematocrit (volume fraction) 32 % 35-52 Automated erythrocyte mean corpuscular volume 92 [ foz_us] 80-99 Automated erythrocyte mean corpuscular h emoglobin (mass per erythrocyte) 29 pg 25-34 Automated erythrocyte mean corpuscular h emoglobin concentration measurement (mass/volume) 31 g/dL 32-36 Automated erythrocyte distribution width ratio 15. 8 % 10.0- 14.5 Automated blood platelet count (count/volume) 273 10*3/uL 130-400 Automated blood platelet mean volume measurement 9.9 [foz_us] 7.4-10.4 Automated blood neutrophils/100 leukocytes 74 % 42-75 Automated blood lymphocytes/100 leukocytes 15 % 12-44 Blood monocytes/100 leukocytes 10 % 0-12 Automated blood eosinophils/100 leukocytes 1 % 0-10 Automated blood basophils/100 leukocytes 0 % 0-10 Blood neutrophils automated count (number/volume) 5.0 10*3 1.8-7.8 Blood lymphocytes automated count (number/volume) 1.0 10*3 1.0-4.0 Blood monocytes automated count (number/volume) 0. 7 10*3 0.0-1.0 Automated eosinophil count 0.1 10*3/uL 0 .0-0.3 Automated blood basophil count (count/volume) 0.0 10*3/uL 0.0-0.1 Comprehensive metabolic panel - 11/04/18 18:50 Serum or plasma sodium measurement (moles/volume) 141 mmol/L 135-145 Serum or plasma potassium measurement (moles/volume) 3.9 mmol/L 3.6-5.0 Serum or plasma chloride measurement (moles/volume) 97 mmol/L 98-107 Carbon dioxide 31 mmol/L 21-32 Serum or plasma anion gap determination (moles/volume) 13 mmol/L 5-14 Serum or plasma urea nitrogen measurement (mass/volume ) 23 mg/dL 7-18 Serum or plasma creatinine measurement (mass/volume) 4.36 mg/dL 0.60-1.30 Serum or plasma urea nitrogen/creatinine mass ratio 5 NRG Serum or plasma creatinine measurement w ith calculation of estimated glomerular filtration rate 10 NRG Serum or plasma glucose measurement (mass/volume) 108 mg/dL 70-105 Serum or plasma calcium measurement (mass/volume) 8.6 mg/dL 8.5-10.1 Serum or plasma total bilirubin measurement (mass/volu me) 0.3 mg/dL 0.1-1.0 Serum or plasma alkaline phosphatase oj surement (enzymatic activity/volume) 91 U/L 40-136 Serum or plasma aspartate aminotransfera se measurement (enzymatic activity/volume) 8 U/L 5-34 Serum or plasma alanine aminotransferase measurement (enzymatic activity/volume) 6 U/L 0-55 Serum or plasma protein measurement (mass/volume) 5.9 g/dL 6.4-8.2 Serum or plasma albumin measurement (mass/volume) 3.2 g/dL 3.2-4.5 CALCIUM CORRECTED 9.2 mg/dL 8.5-10.1 Magnesium - 11/04/18 18:50 Magnesium 2.4 mg/dL 1.8-2.4 Serum or plasma troponin i.cardiac measu rement (mass/volume) - 11/04/18 18:50 Serum or plasma troponin i.cardiac measurement (mass/v olume) < ng/mL <0.028 Fibrin D-dimer FEU measurement in platel et poor plasma (mass/volume) - 11/04/18 18:51 Fibrin D-dimer FEU measurement in platelet poor plasma (mass/volume) 10.24 ug/mL 0.00-0.49 Arterial blood gas measurement - 9 19:10 Blood pCO2 40 mm[Hg] 35-45 Blood pO2 113 mm[Hg] 79-93 Arterial blood bicarbonate measurement (moles/volume) 34 mmol/L 23-27 Arterial blood base excess by calculation 10.7 mmo l/L -2.5-2.5 Arterial blood oxygen saturation measurement 99 % 94-100 * Inhaled oxygen flow rate 2L NRG Arterial blood pH measurement with patient temperature correction 7.54 7.37-7.43 Arterial blood carbon dioxide, total measurement (mole s/volume) 35.4 mmol/L 21.0-31.0 Body site LEFT RADIAL NRG Assessment of wrist artery patency prior to arterial p uncture YES-POS NRG Setting of ventilation mode NO NR G Measurement of body temperature 98.8 NRG Complete blood count (CBC) with automate d white blood cell (WBC) differential - 12/06/18 16:04 Blood leukocytes automated count (number/volume) 6.3 10*3/uL 4.3-11.0 Blood erythrocytes automated count (number/volume) 3.45 10*6/uL 4.35-5.85 Venous blood hemoglobin measurement (mass/volume) 9.6 g/dL 11.5-16.0 Blood hematocrit (volume fraction) 32 % 35-52 Automated erythrocyte mean corpuscular volume 91 [ foz_us] 80-99 Automated erythrocyte mean corpuscular h emoglobin (mass per erythrocyte) 28 pg 25-34 Automated erythrocyte mean corpuscular h emoglobin concentration measurement (mass/volume) 31 g/dL 32-36 Automated erythrocyte distribution width ratio 16. 4 % 10.0- 14.5 Automated blood platelet count (count/volume) 333 10*3/uL 130-400 Automated blood platelet mean volume measurement 9.6 [foz_us] 7.4-10.4 Automated blood neutrophils/100 leukocytes 75 % 42-75 Automated blood lymphocytes/100 leukocytes 12 % 12-44 Blood monocytes/100 leukocytes 11 % 0-12 Automated blood eosinophils/100 leukocytes 2 % 0-10 Automated blood basophils/100 leukocytes 0 % 0-10 Blood neutrophils automated count (number/volume) 4.7 10*3 1.8-7.8 Blood lymphocytes automated count (number/volume) 0.7 10*3 1.0-4.0 Blood monocytes automated count (number/volume) 0. 7 10*3 0.0-1.0 Automated eosinophil count 0.1 10*3/uL 0 .0-0.3 Automated blood basophil count (count/volume) 0.0 10*3/uL 0.0-0.1 PT panel in platelet poor plasma by coag ulation assay - 12/06/18 16:04 Prothrombin time (PT) in platelet poor plasma by coagu lation assay 16.1 s 12.2-14.7 INR in platelet poor plasma or blood by coagulation as say 1.2 0.8-1.4 Activated partial thromboplastin time (a PTT) in platelet poor plasma bycoagulation assay - 12/06/18 16:04 Activated partial thromboplastin time (a PTT) in platelet poor plasma bycoagulation assay 35 s 24-35 Comprehensive metabolic panel - 12/06/18 16:04 Serum or plasma sodium measurement (moles/volume) 140 mmol/L 135-145 Serum or plasma potassium measurement (moles/volume) 4.0 mmol/L 3.6-5.0 Serum or plasma chloride measurement (moles/volume) 95 mmol/L 98-107 Carbon dioxide 35 mmol/L 21-32 Serum or plasma anion gap determination (moles/volume) 10 mmol/L 5-14 Serum or plasma urea nitrogen measurement (mass/volume ) 14 mg/dL 7-18 Serum or plasma creatinine measurement (mass/volume) 2.97 mg/dL 0.60-1.30 Serum or plasma urea nitrogen/creatinine mass ratio 5 NRG Serum or plasma creatinine measurement w ith calculation of estimated glomerular filtration rate 15 NRG Serum or plasma glucose measurement (mass/volume) 92 mg/dL 70-105 Serum or plasma calcium measurement (mass/volume) 8.7 mg/dL 8.5-10.1 Serum or plasma total bilirubin measurement (mass/volu me) 0.3 mg/dL 0.1-1.0 Serum or plasma alkaline phosphatase oj surement (enzymatic activity/volume) 114 U/L 40-136 Serum or plasma aspartate aminotransfera se measurement (enzymatic activity/volume) 12 U/L 5-34 Serum or plasma alanine aminotransferase measurement (enzymatic activity/volume) 8 U/L 0-55 Serum or plasma protein measurement (mass/volume) 6.7 g/dL 6.4-8.2 Serum or plasma albumin measurement (mass/volume) 3.5 g/dL 3.2-4.5 CALCIUM CORRECTED 9.1 mg/dL 8.5-10.1 Magnesium - 12/06/18 16:04 Magnesium 2.4 mg/dL 1.6-2.4 Serum or plasma troponin i.cardiac measu rement (mass/volume) - 12/06/18 16:04 Serum or plasma troponin i.cardiac measurement (mass/v olume) < ng/mL <0.028 Serum or plasma lithium measurement (mol es/volume) - 12/06/18 16:04 BNP PT 1606.2 pg/mL <100.0 Body fluid cell count - 12/16/18 10:35 Specimen source identification of body fluid PERIT ON NRG Evaluation of color of body fluid YELLOW NRG Determination of appearance of body fluid SLT CLDY NRG Body fluid leukocytes count (number/volume) 818 /u L NRG Body fluid erythrocytes count (number/volume) 2450 /uL NRG Manual body fluid polymorphonuclear cells/100 leukocyt es 33 % NRG Manual body fluid mononuclear cells/100 leukocytes 52 % NRG Manual body fluid lymphocytes/100 leukocytes 4 % NRG Manual body fluid other cell count (number) 11 % NRG Glucose body fluid - 12/16/18 10:35 Glucose body fluid 95 mg/dL NRG Body fluid total protein measurement - 0 12/16/18 10:35 Body fluid total protein measurement 4.1 g/dL NRG Gram stain microscopy - 12/16/18 10:35 Gram stain microscopy No bacteria seen NRG Bacterial body fluid culture - 12/16/18 10:35 Bacterial body fluid culture NG N RG Complete blood count (CBC) with automate d white blood cell (WBC) differential - 06/06/19 12:19 Blood leukocytes automated count (number/volume) 5.2 10*3/uL 4.3-11.0 Blood erythrocytes automated count (number/volume) 3.15 10*6/uL 4.35-5.85 Venous blood hemoglobin measurement (mass/volume) 9.8 g/dL 11.5-16.0 Blood hematocrit (volume fraction) 30 % 35-52 Automated erythrocyte mean corpuscular volume 95 [ foz_us] 80-99 Automated erythrocyte mean corpuscular h emoglobin (mass per erythrocyte) 31 pg 25-34 Automated erythrocyte mean corpuscular h emoglobin concentration measurement (mass/volume) 33 g/dL 32-36 Automated erythrocyte distribution width ratio 15. 9 % 10.0- 14.5 Automated blood platelet count (count/volume) 209 10*3/uL 130-400 Automated blood platelet mean volume measurement 9.9 [foz_us] 7.4-10.4 Automated blood neutrophils/100 leukocytes 72 % 42-75 Automated blood lymphocytes/100 leukocytes 17 % 12-44 Blood monocytes/100 leukocytes 9 % 0-12 Automated blood eosinophils/100 leukocytes 2 % 0-10 Automated blood basophils/100 leukocytes 0 % 0-10 Blood neutrophils automated count (number/volume) 3.7 10*3 1.8-7.8 Blood lymphocytes automated count (number/volume) 0.9 10*3 1.0-4.0 Blood monocytes automated count (number/volume) 0. 5 10*3 0.0-1.0 Automated eosinophil count 0.1 10*3/uL 0 .0-0.3 Automated blood basophil count (count/volume) 0.0 10*3/uL 0.0-0.1 Comprehensive metabolic panel - 06/06/19 12:19 Serum or plasma sodium measurement (moles/volume) 137 mmol/L 135-145 Serum or plasma potassium measurement (moles/volume) 3.9 mmol/L 3.6-5.0 Serum or plasma chloride measurement (moles/volume) 95 mmol/L 98-107 Carbon dioxide 30 mmol/L 21-32 Serum or plasma anion gap determination (moles/volume) 12 mmol/L 5-14 Serum or plasma urea nitrogen measurement (mass/volume ) 46 mg/dL 7-18 Serum or plasma creatinine measurement (mass/volume) 4.77 mg/dL 0.60-1.30 Serum or plasma urea nitrogen/creatinine mass ratio 10 NRG Serum or plasma creatinine measurement w ith calculation of estimated glomerular filtration rate 9 NRG Serum or plasma glucose measurement (mass/volume) 90 mg/dL 70-105 Serum or plasma calcium measurement (mass/volume) 8.5 mg/dL 8.5-10.1 Serum or plasma total bilirubin measurement (mass/volu me) 0.4 mg/dL 0.1-1.0 Serum or plasma alkaline phosphatase oj surement (enzymatic activity/volume) 135 U/L 40-136 Serum or plasma aspartate aminotransfera se measurement (enzymatic activity/volume) 11 U/L 5-34 Serum or plasma alanine aminotransferase measurement (enzymatic activity/volume) 9 U/L 0-55 Serum or plasma protein measurement (mass/volume) 6.1 g/dL 6.4-8.2 Serum or plasma albumin measurement (mass/volume) 3.7 g/dL 3.2-4.5 CALCIUM CORRECTED 8.7 mg/dL 8.5-10.1 Lipase - 06/06/19 12:19 Lipase 53 U/L 8-78 Body fluid cell count - 06/08/19 14:42 Specimen source identification of body fluid PERIT ON NRG Evaluation of color of body fluid YELLOW NRG Determination of appearance of body fluid SLT CLDY NRG Body fluid leukocytes count (number/volume) 100 /u L NRG Body fluid erythrocytes count (number/volume) 0 /u L NRG Manual body fluid polymorphonuclear cells/100 leukocyt es 0 % NRG Manual body fluid mononuclear cells/100 leukocytes 0 % NRG Manual body fluid lymphocytes/100 leukocytes 2 % NRG Manual body fluid other cell count (number) 98 % NRG Glucose body fluid - 06/08/19 14:42 Glucose body fluid 104 mg/dL NRG Body fluid total protein measurement - 0 06/08/19 14:42 Body fluid total protein measurement 3.8 g/dL NRG Body fluid/serum or plasma lactate dehyd rogenase (LDH) ratio - 06/08/19 14:42 Body fluid/serum or plasma lactate dehydrogenase (LDH) ratio 105 U/L NRG Amylase body fluid - 06/08/19 14:42 Amylase body fluid 78 U/L NRG Creatinine body fluid - 06/08/19 14:42 Creatinine body fluid 4.16 mg/dL NRG Gram stain microscopy - 06/08/19 14:42 Gram stain microscopy NO BACTERIA SEEN NRG Bacteria identification in wound by cult ure - 06/08/19 14:42 Bacteria identification in wound by culture NG NRG Complete blood count (CBC) with automate d white blood cell (WBC) differential - 06/09/19 10:15 Blood leukocytes automated count (number/volume) 4.8 10*3/uL 4.3-11.0 Blood erythrocytes automated count (number/volume) 2.71 10*6/uL 4.35-5.85 Venous blood hemoglobin measurement (mass/volume) 8.5 g/dL 11.5-16.0 Blood hematocrit (volume fraction) 26 % 35-52 Automated erythrocyte mean corpuscular volume 97 [ foz_us] 80-99 Automated erythrocyte mean corpuscular h emoglobin (mass per erythrocyte) 31 pg 25-34 Automated erythrocyte mean corpuscular h emoglobin concentration measurement (mass/volume) 32 g/dL 32-36 Automated erythrocyte distribution width ratio 15. 7 % 10.0- 14.5 Automated blood platelet count (count/volume) 202 10*3/uL 130-400 Automated blood platelet mean volume measurement 10.0 [foz_us] 7.4-10.4 Automated blood neutrophils/100 leukocytes 72 % 42-75 Automated blood lymphocytes/100 leukocytes 16 % 12-44 Blood monocytes/100 leukocytes 9 % 0-12 Automated blood eosinophils/100 leukocytes 3 % 0-10 Automated blood basophils/100 leukocytes 1 % 0-10 Blood neutrophils automated count (number/volume) 3.5 10*3 1.8-7.8 Blood lymphocytes automated count (number/volume) 0.8 10*3 1.0-4.0 Blood monocytes automated count (number/volume) 0. 4 10*3 0.0-1.0 Automated eosinophil count 0.1 10*3/uL 0 .0-0.3 Automated blood basophil count (count/volume) 0.0 10*3/uL 0.0-0.1 Comprehensive metabolic panel - 06/09/19 10:15 Serum or plasma sodium measurement (moles/volume) 138 mmol/L 135-145 Serum or plasma potassium measurement (moles/volume) 4.5 mmol/L 3.6-5.0 Serum or plasma chloride measurement (moles/volume) 96 mmol/L 98-107 Carbon dioxide 29 mmol/L 21-32 Serum or plasma anion gap determination (moles/volume) 13 mmol/L 5-14 Serum or plasma urea nitrogen measurement (mass/volume ) 59 mg/dL 7-18 Serum or plasma creatinine measurement (mass/volume) 5.49 mg/dL 0.60-1.30 Serum or plasma urea nitrogen/creatinine mass ratio 11 NRG Serum or plasma creatinine measurement w ith calculation of estimated glomerular filtration rate 8 NRG Serum or plasma glucose measurement (mass/volume) 80 mg/dL 70-105 Serum or plasma calcium measurement (mass/volume) 8.1 mg/dL 8.5-10.1 Serum or plasma total bilirubin measurement (mass/volu me) 0.4 mg/dL 0.1-1.0 Serum or plasma alkaline phosphatase oj surement (enzymatic activity/volume) 117 U/L 40-136 Serum or plasma aspartate aminotransfera se measurement (enzymatic activity/volume) 12 U/L 5-34 Serum or plasma alanine aminotransferase measurement (enzymatic activity/volume) 7 U/L 0-55 Serum or plasma protein measurement (mass/volume) 5.7 g/dL 6.4-8.2 Serum or plasma albumin measurement (mass/volume) 3.5 g/dL 3.2-4.5 CALCIUM CORRECTED 8.5 mg/dL 8.5-10.1 PT panel in platelet poor plasma by coag ulation assay - 06/09/19 10:15 Prothrombin time (PT) in platelet poor plasma by coagu lation assay 16.8 s 12.2-14.7 INR in platelet poor plasma or blood by coagulation as say 1.3 0.8-1.4 Activated partial thromboplastin time (a PTT) in platelet poor plasma bycoagulation assay - 06/09/19 10:15 Activated partial thromboplastin time (a PTT) in platelet poor plasma bycoagulation assay 33 s 24-35 Encounters ACCT No. Visit Date/Time Discharge Status Pt. Type Provider Facility Loc./Unit Complaint [id number] 05/02/2019 14:40:00 05/02/2019 23:59: 59 CLS Outpatient JARRETTNALLELY RODRIGUEZ [facility] [id number] 10/31/2018 13:40:00 Document Registration [id number] 06/14/2017 13:00:00 Document Registration [id number] 06/09/2019 09:51:00 11:34:00 DIS Emergency ART BAER, SEGUN Asher [facility] ER PROCEDURE SITE BLEEDING [id number] 06/06/2019 11:17:00 13:24:00 DIS Emergency ANDREW SIERRA [employer] [facility] ER ABD PAIN [id number] 06/02/2019 07:35:00 23:59:59 CLS Outpatient CHEYANNE WELLS [employer] [facility] RAD ABD PAIN,DIARRH EA [id number] 01/27/2019 11:27:00 23:59:59 CLS Outpatient PATRICIO TEIXEIRA DO [facility] RAD RECURRENT ASCITIES [id number] 01/24/2019 13:43:00 23:59:59 CLS Outpatient MAITE BAER, Ranjit CADENA [facility] CARD MITRAL REGURGITATION [id number] 01/06/2019 09:13:00 12:00:00 DIS Outpatient TEIXEIRA PATRICIO Tina [facility] ENDO DIARRHEA [id number] 01/02/2019 05:38:00 14:51:00 DIS Outpatient TEIXEIRA PATRICIO FERNANDEZ [facility] PREOP COLONOSCOPY [id number] 12/16/2018 08:46:00 23:59:59 CLS Outpatient TEIXEIRA PATRICIO FERNANDEZ [facility] SDC ASCITIES [id number] 12/06/2018 15:44:00 17:59:00 DIS Emergency SEGUN CORDOVA MD [facility] ER CP/SOB [id number] 11/04/2018 18:02:00 23:12:00 DIS Emergency ENRICO LINDSEY MD [facility] ER SOA [id number] 10/10/2018 11:29:00 13:12:00 DIS Emergency ANDREW SIERRA APRN [facility] ER ARM SWELLING [id number] 09/07/2018 16:29:00 19:09:00 DIS Emergency SEGUN CORDOVA MD [facility] ER LEG SWELLING [id number] 08/10/2018 17:09:00 22:30:00 DIS Emergency KURT, LUTHER [facility] ER SOA [id number] 08/08/2018 13:10:00 15:37:00 DIS Emergency NERICO LINDSEY MD [facility] ER N/V [id number] 04/13/2018 15:23:00 18:00:00 DIS Emergency ANDREW SIERRA APRN [facility] ER WEAKNESS [id number] 05/29/2017 18:06:00 018 23:10:00 DIS Emergency SANDRA MASON MD [facility] ER SOA [id number] 04/20/2017 16:22:00 018 18:36:00 DIS Emergency ANDREW SIERRA APRN [facility] ER BLEEDING,NEED STITCHES [id number] 04/12/2017 12:28:00 018 14:55:00 DIS Emergency ENRICO LINDSEY MD [facility] ER SOA [id number] 04/01/2017 11:16:00 018 23:59:59 CLS Outpatient NALLELY SOLIMAN MD [facility] D64.9 [id number] 03/07/2017 20:03:00 017 00:39:00 DIS Emergency ENRICO LINDSEY MD [facility] ER BACK PAIN [id number] 03/03/2017 15:45:00 017 23:59:59 CLS Preadmit MAITE BAER, Ranjit CADENA [facility] CARD I48.91 AF [id number] 12/05/2016 13:00:00 017 13:05:00 DIS Inpatient ARLEEN LIND MD [facility] 4TH FX L DISTAL RADIUS, FX L PELVIS [id number] 12/01/2016 11:38:00 017 23:59:59 CLS Emergency SANDRA MASON MD [facility] ER POSSIBLE SEIZUR ES [id number] 10/25/2016 08:07:00 017 10:40:00 DIS Emergency ENRICO LINDSEY MD [facility] ER DIALYSIS PORT BLEEDING [id number] 08/06/2016 09:45:00 017 23:59:59 CLS Preadmit MAITE BAER, Ranjit CADENA [facility] CARD AF I48.91 [id number] 07/01/2016 12:15:00 017 23:59:59 CLS Preadmit MAITE BAER, Ranjit CADENA [facility] CARD AF [id number] 04/01/2016 11:50:00 00:01:00 DIS Outpatient MAITE BAER, Ranjit CADENA [facility] CARD AF [id number] 02/12/2016 08:56:00 016 11:15:00 DIS Emergency SANDRA MASON MD [facility] ER CHEST PAIN [id number] 02/03/2016 19:50:00 016 18:35:00 DIS Inpatient JOURDAN BAER, NALLELY Hatch [facility] ICU NEW ONSET ATRIAL FIB W/ RVR, ESRD ON DIALYSIS,HEAR [id number] 06/08/2019 13:35:[address] Outpatient PATRICIO TEIXEIRA DO [facility] RAD OTHER ASCITES
== END 2019-06-09 11:34 | disposition home or self-care (01) ==
LOC: ER 09:51 → EDUNIT# 09:51 → ER 11:34
DX: L76.22 Postprocedural hemorrhage of skin and subcutaneous tissue following other procedure (principal); D64.9 Anemia, unspecified; I12.0 Hypertensive chronic kidney disease with stage 5 chronic kidney disease or end stage renal disease; N18.6 End stage renal disease; I48.91 Unspecified atrial fibrillation; Z99.2 Dependence on renal dialysis; Z79.01 Long term (current) 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s; Z88.8 Allergy status to other drugs, medicaments and biological substances; Z88.1 Allergy status to other antibiotic agents; Z88.0 Allergy status to penicillin; Z88.2 Allergy status to sulfonamides
CPT/HCPCS: 36415; 80053; 85025; 85610; 85730; 99283

== ENCOUNTER 2019-06-11 15:54 | Emergency (ER) | payer MEDICARE, MEDICAID ==
[~2019-06-11] VITALS: Ht 162.5 cm; Wt 54.4 kg
[2019-06-11] MEDS ORDERED: TRM50T PO (17:02)
--- NOTE | 2019-06-11 17:02 | ED Abdominal Pain ---
General Chief Complaint: Abdominal/GI Problems Stated Complaint: PAIN AFTER PARACENTESIS Nursing Triage Note: Pt to ED via EMS from [facility]. Pt reports pt had a paracentisis performed by Dr. Teixeira on Wednesday. Pt reports ongoing pain since procedure and had bleeding at site on Wednesday. Pt reports having dialysis yesterday. Sepsis Screen: No Definite Risk History of Present Illness Date Seen by Provider: Jun 11, 2019 Time Seen by Provider: 15:55 Initial Comments 78 year old female brought via EMS for abdominal pain. She had a paracentesis done on 06/08/[address] Teixeira, returned to ED on 06/09/19 for drainage from the wound site. She tried Tylenol yesterday and it helped the pain, she did not take any Tylenol or other medications today for pain.She reports eating lunch, she had a BM this am, Dialysis yesterday. No increased abdominal swelling. Timing/Duration: 1-3 Hours Severity/Quality: Mild Location: LLQ Radiation: No Radiation Associated Symptoms: Denies Symptoms Allergies and Home Medications Allergies Coded Allergies: povidone-iodine (Verified Allergy, Mild, 12/05/16) ranitidine (Verified Allergy, Mild, 12/05/16) soap (Verified Allergy, Mild, 12/05/16) tetracycline (Verified Allergy, Mild, 12/05/16) Penicillins (Verified Allergy, Unknown, 12/05/16) Sulfa (Sulfonamide Antibiotics) (Verified Allergy, Unknown, 12/05/16) Uncoded Allergies: NARCOTIC (Allergy, Mild, 12/01/16) Home Medications Apixaban 2.5 Mg Tablet, 2.5 MG PO BID, (Reported) Calcium Carbonate 300 Mg Tab.chew, 300 MG PO UD PRN for HEARTBURN, (Reported) Cetirizine HCl 10 Mg Tablet, 10 MG PO DAILY, (Reported) Cinacalcet HCl 90 Mg Tablet, 90 MG PO BID, (Reported) Flecainide Acetate 50 Mg Tablet, 50 MG PO BID, (Reported) Lactobacillus Rhamnosus GG 1 Each Capsule, 1 EACH PO DAILY, (Reported) Loperamide HCl 2 Mg Capsule, 2 MG PO UD PRN for DIARRHEA, (Reported) Mirtazapine 15 Mg Tablet, 7.5 MG PO DAILY, (Reported) take 1/2 of 15mg tab Multivitamin 1 Each Tablet, 1 EACH PO DAILY, (Reported) Sevelamer Carbonate 800 Mg Tablet, 1,600 MG PO TIDWM, (Reported) TAKES 2 (800 MG) TABLETS Tramadol HCl 50 Mg Tablet, 50 MG PO Q6H PRN for PAIN Prescribed by: LEONIE GARCIA on 06/11/19 1703 Patient Home Medication List Home Medication List Reviewed: Yes Review of Systems Review of Systems Constitutional: no symptoms reported, see HPI Gastrointestinal: See HPI, Abdominal Pain All Other Systems Reviewed Negative Unless Noted: Yes Past Mzwwdws-Qfhnsy-Aznbdv Hx Past Med/Social Hx: Reviewed Nursing Past Med/Soc Hx Patient Social History Alcohol Use: Denies Use Recreational Drug Use: No 2nd Hand Smoke Exposure: No Recent Foreign Travel: No Contact w/Someone Who Travel: No Recent Infectious Disease Expo: No Recent Hopitalizations: No Immunizations Up To Date Tetanus Booster (TDap): Unknown Date of Pneumonia Vaccine: Jan 04, 2012 Date of Influenza Vaccine: Dec 28, 2018 Seasonal Allergies Seasonal Allergies: No Past Medical History Surgeries: Yes (DIALYSIS GRAFT/SHUNT RIGHT UPPER ARM; RIGHT KNEE TUMOR REMOVAL ) Appendectomy, Dialysis, Hysterectomy, Orthopedic, Tonsillectomy, Vascular Surgery Respiratory: Yes COPD Currently Using CPAP: No Currently Using BIPAP: No Cardiac: Yes Atrial Fibrillation, Heart Murmur, High Cholesterol, Hypertension, Irregular Heartbeat Neurological: No Reproductive Disorders: No ROGUER History: Menopausal Genitourinary: Yes Renal Failure, Dialysis Gastrointestinal: Yes (abdominal ascites) Chronic Diarrhea Musculoskeletal: Yes Arthritis, Fractures Endocrine: No HEENT: No Cancer: No Psychosocial: No Integumentary: No Blood Disorders: No Adverse Reaction/Blood Tranf: No Family Medical History Patient reports no known family medical history. No Pertinent Family Hx Physical Exam Vital Signs Vital Signs - First Documented 06/11/19 15:54 Temp 36.3 Pulse 56 Resp 18 B/P (MAP) 127/110 (116) Pulse Ox 97 O2 Delivery Room Air Capillary Refill : Less Than 3 Seconds Height/Weight/BMI Height: 5'7.00" Weight: 110lbs. 0oz. 49.989040qq; 20.00 BMI Method:Actual General Appearance: WD/WN, no apparent distress HEENT: PERRL/EOMI, normal ENT inspection, TMs normal, pharynx normal Neck: non-tender, full range of motion, supple, normal inspection Respiratory: chest non-tender, lungs clear, normal breath sounds Cardiovascular: normal peripheral pulses, regular rate, rhythm Gastrointestinal: normal bowel sounds, distended, tenderness (trace in left lower quad. ), other (wound from paracentesis healing no active drainage.) Neurologic/Psychiatric: no motor/sensory deficits, alert, normal mood/affect, oriented x 3 Skin: normal color, warm/dry Progress/Results/Core Measures Results/Orders My Orders Orders - LEONIE GARCIA Tramadol Tablet (Ultram Tablet) (06/11/19 16:11) Vital Signs/I&O 06/11/19 06/11/19 15:54 17:20 Temp 36.3 36.2 Pulse 56 58 Resp 18 18 B/P (MAP) 127/110 (116) 124/92 (116) Pulse Ox 97 97 O2 Delivery Room Air Room Air Blood Pressure Mean: 116 Progress Progress Note : Time: 15:55 Progress Note Patient seen and evaluated, reviewed labs from last week. We'll try tramadol 1 tablet for pain. 1644 patient reports pain has improved tremendously. Discharge instructions and return precautions reviewed with her. Departure Impression Primary Impression: Abdominal wall pain Disposition: HOME, SELF-CARE Condition: Improved Departure-Patient Inst. Decision time for Depature: 16:50 Referrals: PATRICIO TEIXEIRA HOLLY R MD (PCP/Family) Primary Care Physician Patient Instructions: Acute Abdomen (Belly Pain), Adult (DC) Add. Discharge Instructions: Continue with activity and diet as tolerated. Use the tyleonl and tramadol sparingly but when you are having increased abdomi nal pain you may take it. Follow-up with Dr. Soliman or Mouna if symptoms are not improving or worsen. Return to the emergency department for new, urgent health care needs. All discharge instructions reviewed with patient and/or family. Voiced understanding. Scripts Tramadol HCl (Tramadol HCl) 50 Mg Tablet 50 MG PO Q6H PRN for PAIN, #20 TAB 0 Refills Prov: LEONIE GARCIA 06/11/19 Copy Copies To 1: PATRICIO TEIXEIRA DO; NALLELY SOLIMAN MD, AMY ARNP Jun 11, 2019 17:02
[2019-06-11 17:20] VITALS: BP 124/92
--- OUTSIDE RECORDS SUMMARY | 2019-06-12 02:15 | XMS REPORT | Clinical Summary ---
Author Author [facility] Organization [facility] Address Unknown Phone Unavailable Care Team Providers Care Tax Map Technician Name Role Phone Aric Escoto MD PCP Martine Blanca MD Unavailable Unavailable Source Comments Some departments are not documenting in the electronic medical record. If you d o not see the information that you expected, contact Release of Information in [facility] [employer] Information Management department at [phone] for further assistan ce in locating additional records.[facility] Allergies Comments Active Allergy Reactions Severity [...] MEDICARE MEDICARE xxxxxxxxxx 2005-P TRANSPLANT resent [place] xxxxxxxx 2013- MEDICAID Present [facility]/HO xxxxxxxxx 05/25/2013 - [place] Present HEALTH/SNF /RESIDENTIAL [facility] Transplant Self 1940 [address]) [address] [place] [address] (Work) 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
--- OUTSIDE RECORDS SUMMARY | 2019-06-12 02:20 | XMS REPORT | Continuity of Care Document ---
Author Organization Unknown Address Unknown Phone Unavailable Allergies Active Description Code Type Severity Reaction Onset Reported/Identified Relationship to Patient Clinical Status Yes No Known Drug Allergies [id number] Drug Allergy Unknown N/A 02/03/2016 Yes NARCOTIC NARCOTIC Mild N/A 12/01/2016 Yes povidone-iodine [id number] D rug Allergy Mild N/A 12/05/2016 Yes ranitidine [id number] Drug Allerg y Mild N/A 12/05/2016 Yes soap [id number] Drug Allergy Mild N/A 12/05/2016 Yes tetracycline [id number] Drug Allergy Mild N/A 12/05/2016 Yes Penicillins [id number] Drug Aller gy Unknown N/A 12/05/2016 Yes Sulfa (Sulfonamide Antibiotics) [id number] Drug Allergy Unknown N/A 017 Medications [...] UNSPECIFIED 02/12/2016 SANDRA MASON MD Ot 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 01 POMOLOGY TEACHER (CURRENT) USE OF ANTICOAGULANT 10/25/2016 ENRICO LINDSEY MD Ot Z99. 2 DEPENDENCE ON RENAL DIALYSIS 10/27/2016 ENRICO LINDSEY MD Ot D64. 9 ANEMIA, UNSPECIFIED 10/27/2016 ENRICO LINDSEY MD Ot N18. 6 END STAGE RENAL DISEASE 10/27/2016 ENRICO LINDSEY MD Ot T82.591A [facility] COMPL OF SURGICALLY CREATED ARTERIO 10/27/2016 ENRICO LINDSEY MD Ot Z79. 01 LONG-TERM (CURRENT) USE OF ANTICOAGULANT 10/27/2016 ENRICO LINDSEY MD Ot Z99. 2 DEPENDENCE ON RENAL DIALYSIS 12/01/2016 Ranjit ARORA MD Ot I27 .2 OTHER SECONDARY PULMONARY HYPERTENSION 12/01/2016 Ranjit ARORA MD Ot I35 .1 NONRHEUMATIC AORTIC (VALVE) INSUFFICIENC 12/01/2016 Ranjit ARORA MD Ot I48.91 UNSPECIFIED ATRIAL FIBRILLATION 12/01/2016 SANDRA MASON MD, Ot N18.6 END STAGE RENAL DISEASE 12/01/2016 SANRDA MASON MD, Ot R25.3 FASCICULATION 12/01/2016 SANDRA MASON MD, Ot Z79.01 LONG-TERM (CURRENT) USE OF ANTICOAGULANT 12/01/2016 SANDRA MASON [...] LE 12/08/2016 ARLEEN LIND MD Ot Z79.01 LONG-TERM (CURRENT) USE OF ANTICOAGULANT 12/08/2016 ARLEEN LIND [...] ESTABLISH 12/09/2016 ARLEEN LIND MD Ot 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 2 [...] Ot E87. 79 OTHER FLUID OVERLOAD 04/12/2017 ORSALIA BAER ENRICO J Ot I12. 0 HYP [...] E78.00 PURE HYPERCHOLESTEROLEMIA, UNSPECIFIED 04/20/2017 ANDREW SIERRA SPECIAL PROGRAMS DIRECTOR Ot I10 ESSENTIAL (PRIMARY) HYPERTENSION 04/20/2017 ANDREW [...] ACQUIRED ABSENCE OF OTHER ORGANS 04/13/2018 ANDREW SIRERA APRN Ot Z91.041 RADIOGRAPHIC DYE ALLERGY STATUS [...] ACQUIRED ABSENCE OF OTHER SPECIFIED PART 08/08/2018 ERNICO LINDSEY MD Ot Z90.710 ACQUIRED ABSENCE OF [...] EDEMA 09/07/2018 SEGUN CORDOVA MD Ot Z79.01 LONG-TERM (CURRENT) USE OF ANTICOAGULANT 09/07/2018 SEGUN CORDOVA [...] EDEMA 09/09/2018 SEGUN CORDOVA MD, Ot Z79.01 LONG-TERM (CURRENT) USE OF ANTICOAGULANT 09/09/2018 SEGUN CORDOVA MD, Ot Z87.01 PERSONAL HISTORY OF PNEUMONIA (RECURRENT 09/09/2018 SEGUN CORDOVA MD, Ot Z88.0 ALLERGY STATUS TO PENICILLIN 09/09/2018 SEGUN CORDOVA MD, Ot Z88.1 ALLERGY STATUS TO OTHER ANTIBIOTIC AGENT 09/09/2018 SEGUN CORDOVA MD, Ot Z88.2 ALLERGY STATUS TO SULFONAMIDES STATUS 09/09/2018 SEGUN CORDOVA MD, Ot Z88.8 ALLERGY STATUS TO [facility] DRUG/MEDS/BIOL SUB 09/09/2018 SEGUN CORDOVA MD, Ot [...] APRN Ot I48.91 UNSPECIFIED ATRIAL FIBRILLATION 10/10/2018 ANDREW SIERRA APRN Ot M79.81 NONTRAUMATIC HEMATOMA OF SOFT TISSUE 10/10/2018 ANDREW SIERRA APRN Ot M79.89 OTHER SPECIFIED SOFT TISSUE DISORDERS 10/10/2018 ANDREW SIERRA APRN Ot N18 .6 END STAGE RENAL DISEASE 10/10/2018 ANDREW SIERRA APRN Ot R60 .0 LOCALIZED EDEMA 10/10/2018 ANDREW SIERRA APRN Ot Z88 .0 ALLERGY [...] ALLERGY STATUS TO PENICILLIN 10/17/2018 ANDREW SIERRA SPECIAL PROGRAMS DIRECTOR Ot Z88 .1 ALLERGY STATUS TO OTHER [...] Ot Z91.041 RADIOGRAPHIC DYE ALLERGY STATUS 11/08/2018 ROSALIA BAER, ENRICO Dai Ot Z91. 14 PATIENT'S [...] NEOPLASM OF CONNECTIVE AND OTH SO 01/06/2019 APTRICIO TEIXEIRA DO Ot F41. 8 OTHER SPECIFIED [...] 01/06/2019 PATRICIO TEIXEIRA DO Ot Z79. 01 LONG-TERM (CURRENT) USE OF ANTICOAGULANT 01/06/2019 PATRICIO TEIXEIRA DO Ot Z79. 82 LONG-TERM (CURRENT) USE OF ASPIRIN 01/06/2019 PATRICIO TEIXEIRA [...] 01/11/2019 PATRICIO TEIXEIRA DO Ot Z79. 01 POMOLOGY TEACHER (CURRENT) USE OF ANTICOAGULANT 01/11/2019 PATRICIO TEIXEIRA DO Ot Z79. 82 POMOLOGY TEACHER (CURRENT) USE OF ASPIRIN 01/11/2019 PATRICIO TEIXEIRA [...] MD Ot I27.20 PULMONARY HYPERTENSION, UNSPECIFIED 03/06/2019 Ranjit ARORA MD, Ot I50.32 CHRONIC DIASTOLIC [...] ABO+Rh group OP NRG Transfusion band number [id number] [facility] Blood group antibody screen NEGATIVE NR G [...] Status Pt. Type Provider Facility Loc./Unit Complaint [id number] 05/02/2019 14:40:00 05/02/2019 23:59: 59 CLS Outpatient JARRETTNALLELY RODRIGUEZ [facility] [id number] 10/31/2018 13:40:00 Document Registration [id number] 06/14/2017 13:00:00 Document Registration [id number] 06/09/2019 09:51:00 11:34:00 DIS Emergency ART BAER, SEGUN Asher [facility] ER PROCEDURE SITE BLEEDING [id number] 06/08/2019 13:35:00 23:59:59 CLS Outpatient PATRICIO TEIXEIRA DO [facility] RAD OTHER ASCITES [id number] 06/06/2019 11:17:00 13:24:00 DIS Emergency ANDREW SIERRA APRN [facility] ER ABD PAIN [id number] 06/02/2019 07:35:00 23:59:59 CLS Outpatient CHEYANNE WELLS APRN [facility] RAD ABD PAIN,DIARRH EA [id number] 01/27/2019 11:27:00 23:59:59 CLS Outpatient TEIXEIRA DOPATRICIO [facility] RAD RECURRENT ASCITIES [id number] 01/24/2019 13:43:00 23:59:59 CLS Outpatient Ranjit ARORA MD [facility] CARD MITRAL REGURGITATION [id number] 01/06/2019 09:13:00 12:00:00 DIS Outpatient TEIXEIRA DOPATRICIO [facility] ENDO DIARRHEA [id number] 01/02/2019 05:38:00 14:51:00 DIS Outpatient TEIXEIRA PATRICIO FERNANDEZ [facility] PREOP COLONOSCOPY [id number] 12/16/2018 08:46:00 23:59:59 CLS Outpatient TEIXEIRA DOPATRICIO [facility] SDC ASCITIES [id number] 12/06/2018 15:44:00 17:59:00 DIS Emergency SEGUN CORDOVA MD [facility] ER CP/SOB [id number] 11/04/2018 18:02:00 23:12:00 DIS Emergency ENRICO LINDSEY MD [facility] ER SOA [id number] 10/10/2018 11:29:00 13:12:00 DIS Emergency ANDREW SIERRA APRN [facility] ER ARM SWELLING [id number] 09/07/2018 16:29:00 19:09:00 DIS Emergency SEGUN CORDOVA MD [facility] ER LEG SWELLING [id number] 08/10/2018 17:09:00 22:30:00 DIS Emergency LUTHER HICKS [facility] ER SOA [id number] 08/08/2018 13:10:00 15:37:00 DIS Emergency ENRICO LINDSEY MD [facility] ER N/V [id number] 04/13/2018 15:23:00 019 18:00:00 DIS Emergency ANDREW SIERRA SPECIAL PROGRAMS DIRECTOR [facility] ER WEAKNESS [id number] 05/29/2017 18:06:00 018 23:10:00 DIS Emergency SANDRA MASON MD [facility] ER SOA [id number] 04/20/2017 16:22:00 018 18:36:00 DIS Emergency ANDREW SIERRA SPECIAL PROGRAMS DIRECTOR [facility] ER BLEEDING,NEED STITCHES [id number] 04/12/2017 12:28:00 018 14:55:00 DIS Emergency ENRICO LINDSEY MD [facility] ER SOA [id number] 04/01/2017 11:16:00 018 23:59:59 CLS Outpatient NALLELY SOLIMAN MD [facility] D64.9 [id number] 03/07/2017 20:03:00 017 00:39:00 DIS Emergency ENRICO LINDSEY MD [facility] ER BACK PAIN [id number] 03/03/2017 15:45:00 017 23:59:59 CLS Preadmit Ranjit ARORA MD [facility] CARD I48.91 AF [id number] 12/05/2016 13:00:00 017 13:05:00 DIS Inpatient ARLEEN LIND MD [facility] 4TH FX L DISTAL RADIUS, FX L PELVIS [id number] 12/01/2016 11:38:00 017 23:59:59 CLS Emergency SANDRA MASON MD [facility] ER POSSIBLE SEIZUR ES [id number] 10/25/2016 08:07:00 017 10:40:00 DIS Emergency ENRICO LINDSEY MD [facility] ER DIALYSIS PORT BLEEDING [id number] 08/06/2016 09:45:00 017 23:59:59 CLS Preadmit Ranjit ARORA MD [facility] CARD AF I48.91 [id number] 07/01/2016 12:15:00 017 23:59:59 CLS Preadmit Ranjit ARORA MD [facility] CARD AF [id number] 04/01/2016 11:50:00 00:01:00 DIS Outpatient Ranjit ARORA MD [facility] CARD AF [id number] 02/12/2016 08:56:00 016 11:15:00 DIS Emergency MARLON BAER, SANDRA Wilder [facility] ER CHEST PAIN [id number] 02/03/2016 19:50:00 016 18:35:00 DIS Inpatient JOURDAN BAER, NALLELY Hatch [facility] ICU NEW ONSET ATRIAL FIB W/ RVR, ESRD ON DIALYSIS,HEAR
== END 2019-06-11 17:10 | disposition home or self-care (01) ==
LOC: EDUNIT# 15:54 → ER 15:57
DX: R10.32 Left lower quadrant pain (principal); I48.91 Unspecified atrial fibrillation; Z98.890 Other specified postprocedural states; Z88.2 Allergy status to sulfonamides; Z88.0 Allergy status to penicillin; Z88.1 Allergy status to other antibiotic agents; Z88.8 Allergy status to other drugs, medicaments and biological substances; Z79.01 Long term (current) 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s
CPT/HCPCS: 99283

== ENCOUNTER 2019-07-05 05:37 | Outpatient (CLI) | payer MEDICARE, MEDICAID ==
[~2019-07-05] VITALS: Ht 162 cm; Wt 54.4 kg
[~2019-07-05 05:37] MED LIST changes: +TRM50T PO
== END 2019-07-05 10:13 | disposition home or self-care (01) ==
LOC: PREOP 05:37
PROVIDERS: ATTEND Surgery
DX: Z01.818 Encounter for other preprocedural examination (principal)

== ENCOUNTER → 2019-07-07 | Day surgery (SDC) | payer MEDICARE, MEDICAID ==
[~2019-07-07] VITALS: Ht 170 cm; Wt 54.4 kg
[~2019-07-07] MED LIST changes: +ACETAMINOPHEN 325 MG TABLET PO PRN; +HURRICAINE EXT TUBE (BENZOCAINE) XX PRN; +HYDROcodone/APAP 5 MG/325 MG (LORTAB) TAB PO PRN; +LACTATED RINGERS 1,000 ML IV ONE; +LACTATED RINGERS 1,000 ML IV STA; +LIDOCAINE 1% INJ 20 ML 20 ML VIAL ONE; +LIDOCAINE JELLY 2% 6 ML SYRINGE MM PRN; +LIDOCAINE JELLY 2% 6 ML SYRINGE ONE; +NS IV 500 ML 500 ML IV SCH; +NS IV 500 ML 500 ML ONE; +ONDANSETRON 4 MG/2 ML (SDV) Z0FRAN IVP PRN; +morphine INJ 10 MG/ML 1ML (SYR OR VIAL) IVP PRN; +proPOfol 200 MG/20 ML (DIPRIVAN) VIAL IV ONE
--- NOTE | 2019-07-07 10:01 | Conscious Sedation/ASA ---
Conscious Sedation Pre-Proced Time 10:00 ASA Score 3 For ASA 3 and 4: Consider anesthesia and medical clearance. Also, for patients with a history of failed moderate sedation consider anesthesia. Airway Lungs Heart ASA score ASA 1: a normal healthy patient ASA 2: a patient with a mild systemic disease (mid diabetes, controlled hypertension, obesity ASA 3: a patient with a severe systemic disease that limits activity (angina, COPD, prior Myocardial infarction) ASA 4: a patient with an incapacitating disease that is a constant threat to life (CHF, renal failure) ASA 5: a moribund patient not expected to survive 24 hrs. (ruptured aneurysm) ASA 6: a declared brain- patient whose organs are being harvested. For emergent operations, add the letter E after the classification Mallampati Classification Grade 2 Sedation Plan Analgesia, Amnesia, Plan communicated to team members, Discussed options with patient/fam, Discussed risks with patient/fam The patient is an appropriate candidate to undergo the planned procedure, sedation, and anesthesia. The patient immediately re-assessed prior to indication. DARA DESAI MD Jul 07, 2019 10:01
--- NOTE | 2019-07-07 10:02 | Progress Note-Pre Operative ---
Pre-Operative Progress Note H&P Reviewed The H&P was reviewed, patient examined and no changes noted. Date Seen by Provider: Jul 07, 2019 Time Seen by Provider: 10:00 Date H&P Reviewed: Jul 07, 2019 Time H&P Reviewed: 10:00 Pre-Operative Diagnosis: GERD, symptomatic ascites DARA DESAI MD Jul 07, 2019 10:02
--- NOTE | 2019-07-07 10:04 | Discharge Inst-Surgical ---
D/C Lap Instructions-GISELLE Follow Up Activity as tolerated High Fiber Diet 25g or more per day Avoid Alcohol, Caffeine, Spicy [place] and Acid foods. Drink 64 fluid oz or more of fluids per day. Symptoms to Report: Fever over 101 degree F, Nausea/Vomiting If any problems/questions: Contact your physician or go to Emergency Room DARA DESAI MD Jul 07, 2019 10:04
[2019-07-07 10:20] VITALS: BP 136/57
[2019-07-07 11:49] LABS: POTASSIUM 5.2 MMOL/L (3.6-5.0)
[2019-07-07 11:50] LABS: CALCIUM 8.2 MG/DL (8.5-10.1)
[2019-07-07 11:54] LABS: CREATININE SERUM 6.2 MG/DL (0.60-1.30)
[2019-07-07 12:25] VITALS: BP 88/50
[2019-07-07 12:30] VITALS: BP 96/51
[2019-07-07 12:35] VITALS: BP 101/62
[2019-07-07 12:40] VITALS: BP 101/62
--- NOTE | 2019-07-07 12:43 | Progress Note-Post Operative ---
Post-Operative Progess Note Surgeon (s)/Field Service Manager (s) Surgeon DARA DESAI MD Field Service Manager: none Pre-Operative Diagnosis GERD, symptomatic ascites Post-Operative Diagnosis reflux esophagitis(stage 3) with distal esophageal stricture, large HH(5cm), mild-moderate gastritis. straw-yellow transudative peritoneal fluid. Procedure & Operative Findings Date of Procedure 07/07/19 Procedure Performed/Findings EGD with bx and balloon dilatation. paracentesis. Anesthesia Type mac with local Estimated Blood Loss Estimated blood loss (mL): minimal Specimens/Packing Specimens Removed ge jxn, antrum DARA DESAI MD Jul 07, 2019 12:43
[2019-07-07 14:40] VITALS: BP 105/78
--- NOTE | 2019-07-07 17:41 | OPERATIVE REPORT ---
DATE OF SERVICE: 07/07/2019 ATTENDING PRIMARY CARE PHYSICIAN: Dr. Rivero. PREOPERATIVE DIAGNOSES: Gastroesophageal reflux disease, symptomatic recurrent ascites. POSTOPERATIVE DIAGNOSES: Reflux esophagitis stage III with distal esophageal stricture, large hiatal hernia 5 cm in size, mild gastritis. No distal obstructions. Ascites fluid, which was straw yellow transudative fluid. PROCEDURE: EGD with bx and balloon dilatation, Paracentesis. DISPOSITION: The patient tolerated the procedure well. INDICATIONS: The patient is a 79-year-old female who has had issues with epigastric pain as well as regurgitation and vomiting. She has had a longstanding history of gastroesophageal reflux disease as well as a large hiatal hernia identified on a CT scan. She also underwent an ultrasound on 06/02/2019, which did show gallstones as well as ascites. She has had 2 paracenteses in the past, likely secondary to benign disease, which includes congestive heart failure. She also is having dysphagia. DESCRIPTION OF PROCEDURE: The patient was brought to the endoscopy suite, laid in the left lateral decubitus position with head slightly elevated. After adequate IV pain and sedative medications and monitored anesthesia care, the mouthpiece was applied. The endoscope was placed in the mouth, visualizing the pharynx and hypopharyngeal region. Vocal cords, epiglottis and vallecula identified and appeared to be normal. The endoscope was then gently intubated into the esophageal opening and esophagus insufflated. The endoscope was then advanced through the first, second and third portion of esophagus at the level of the GE junction, a reflux esophagitis stage III identified. There was also distal esophageal stricture identified. A biopsy was taken of this region using forceps with visualization of good hemostasis. The endoscope was then advanced into the stomach and endoscope retroflexed, visualizing a large hiatal hernia at least 5 cm in size. There was also distal esophageal stricture and Schatzki's ring consistent with a Schatzki's ring identified as well. There was some mild gastritis. No formal ulcerations, polyps, or any neoplasms. The endoscope was then advanced to the pylorus and the first and second portion of the duodenum, which appeared normal with no distal obstructions. We then proceeded with dilatation of distal esophageal stricture. The balloon was placed in the stomach and pulled back to the area of stricture. We first proceed to 2 atmospheres of pressure with no resistance here. We then went to 4 atmospheres of pressure with mild resistance. At 5 atmospheres of pressure approximately 19.5 mm in luminal diameter with moderate resistance we left the balloon in place for approximately 60 seconds. The balloon was then desufflated and removed with visualization of good hemostasis as well as no mucosal tears. Endoscope was then slowly withdrawn while taking a second look and suctioning of residual air with no additional findings. The abdomen was then prepped and draped in standard surgical fashion. Using 1% lidocaine. The skin, subcutaneous tissue, muscle layers and peritoneal lining were then anesthetized using 1% lidocaine. Using the local needle, a straw yellow transudative fluid was drawn out. A skin incision was made using 11 blade and the trocar and catheter were then introduced withdrawing a straw yellow transudative fluid. The catheter was then advanced over the trocar without any resistance. The catheter was then cleaned and covered with sterile gauze followed by Op-Site. The patient tolerated the procedure well. We will continue with drainage until she is asymptomatic and then removed the drain. We will also have her follow up in approximately 6 to 8 weeks to see if she has recurrent dysphagia and then proceeded with a repeat balloon dilatation. Job ID: [id number] DocumentID: [id number] Dictated Date: 07/07/2019 12:36:57 In Flight Refueling Manager Date: 07/07/2019 17:40:40 Dictated By: MD SURY REDMAN
== END | disposition home or self-care (01) ==
LOC: RAD 09:55
PROVIDERS: ATTEND Surgery
DX: K21.0 Gastro-esophageal reflux disease with esophagitis (principal); K22.2 Esophageal obstruction; K44.9 Diaphragmatic hernia without obstruction or gangrene; K29.70 Gastritis, unspecified, without bleeding; R18.8 Other ascites; E78.5 Hyperlipidemia, unspecified; F31.9 Bipolar disorder, unspecified; N18.6 End stage renal disease; I25.10 Atherosclerotic heart disease of native coronary artery without angina pectoris; I13.2 Hypertensive heart and chronic kidney disease with heart failure and with stage 5 chronic kidney disease, or end stage renal disease; I50.9 Heart failure, unspecified; J44.9 Chronic obstructive pulmonary disease, unspecified; I48.91 Unspecified atrial fibrillation; F32.9 Major depressive disorder, single episode, unspecified; K80.20 Calculus of gallbladder without cholecystitis without obstruction; I07.1 Rheumatic tricuspid insufficiency; Z96.652 Presence of left artificial knee joint; Z99.2 Dependence on renal dialysis; Z79.01 Long term (current) 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s; Z79.899 Other long term (current) drug therapy; Z79.82 Long term (current) use of aspirin
CPT/HCPCS: 36415; 49082; 80048

== ENCOUNTER 2019-07-24 09:51 | Emergency (ER) | payer MEDICARE, MEDICAID ==
[~2019-07-24] VITALS: Ht 162 cm; Wt 58.5 kg
[~2019-07-24 09:51] MED LIST changes: -ACETAMINOPHEN 325 MG TABLET PO PRN; -HURRICAINE EXT TUBE (BENZOCAINE) XX PRN; -HYDROcodone/APAP 5 MG/325 MG (LORTAB) TAB PO PRN; -LACTATED RINGERS 1,000 ML IV ONE; -LACTATED RINGERS 1,000 ML IV STA; -LIDOCAINE 1% INJ 20 ML 20 ML VIAL ONE; -LIDOCAINE JELLY 2% 6 ML SYRINGE MM PRN; -LIDOCAINE JELLY 2% 6 ML SYRINGE ONE; -NS IV 500 ML 500 ML IV SCH; -NS IV 500 ML 500 ML ONE; -ONDANSETRON 4 MG/2 ML (SDV) Z0FRAN IVP PRN; -morphine INJ 10 MG/ML 1ML (SYR OR VIAL) IVP PRN; -proPOfol 200 MG/20 ML (DIPRIVAN) VIAL IV ONE
[2019-07-24 10:16] LABS: BASOPHILS % (AUTO) 1 % (0-10); EOSINOPHILS # (AUTO) 0.1 10^3/uL (0.0-0.3); EOSINOPHILS % (AUTO) 1 % (0-10); HEMATOCRIT 21 % (35-52); LYMPHOCYTES # (AUTO) 1.2 X 10^3 (1.0-4.0); LYMPHOCYTES % (AUTO) 15 % (12-44); MEAN CORPUSCULAR HEMOGLOBIN 32 PG (25-34); MEAN CORPUSCULAR HGB CONC 31 G/DL (32-36); MEAN CORPUSCULAR VOLUME 103 FL (80-99); MONOCYTES # (AUTO) 0.6 X 10^3 (0.0-1.0); MONOCYTES % (AUTO) 7 % (0-12); NEUTROPHILS # (AUTO) 6.1 X 10^3 (1.8-7.8); NEUTROPHILS % (AUTO) 76 % (42-75); PLATELET COUNT 310 10^3/uL (130-400); RED CELL DISTRIBUTION WIDTH 17.3 % (10.0-14.5); WHITE BLOOD COUNT 8.1 10^3/uL (4.3-11.0)
--- NOTE | 2019-07-24 10:16 | ED GI ---
General Stated Complaint: ABD ISSUES Source of Information: Patient, EMS, Old Records Exam Limitations: Other (PT IS A VERY POOR HISTORIAN; NO PAPERWORK FROM [facility] CAME WITH PT) History of Present Illness Date Seen by Provider: Jul 24, 2019 Time Seen by Provider: 09:55 Initial Comments PT ARRIVES VIA EMS FROM [facility] PT REPORTEDLY HAD A LARGE DARK STOOL TODAY , AND VOMITED DARK EMESIS TODAY HAS ABDOMINAL BLOATING EMS REPORTED THAT PT C/O ITCHING ALL OVER. NO OTHER INFORMATION OBTAINABLE AT THIS TIME PT STATES SHE DOES NOT KNOW IF SHE VOMITED OR NOT, DOES NOT KNOW IF SHE HAD A BM OR NOT DOES NOT KNOW IF HER ABDOMEN IS SWOLLEN OR NOT PT LATER STATES THAT HER STOOLS HAVE BEEN BLACK LATELY PT HAS ESRD AND IS ON DIALYSIS WEDNESDAY/WEDNESDAY/WEDNESDAY--LAST DIALYSIS WAS Wednesday07/22/19, DUE AGAIN TOMORROW/WEDNESDAY PT HAS LONG HISTORY OF ABDOMINAL DISTENTION WITH ASCITES AND HAS HAD PARACENTESIS IN THE PAST PT ALSO HAS HISTORY OF GERD/ESOPHAGEAL STRICTURE WITH DILATION AND ONGOING NAUSEA/VOMITING HAD EGD WITH ESOPHAGEAL DILATION AND PARACENTESIS BY DR. DESAI 07/07/19 FOR THESE SAME SYMPTOMS --ABDOMINAL DISTENTION/PAIN AND NAUSEA/VOMITING. PT HAD ULTRASOUND 06/02/19 WHICH ALSO SHOWED GALLSTONES IN ADDITION TO ASCITES. PCP: DR. SOLIMAN AT [facility] Allergies and Home Medications Allergies Coded Allergies: povidone-iodine (Verified Allergy, Mild, 07/05/19) ranitidine (Verified Allergy, Mild, 07/05/19) soap (Verified Allergy, Mild, 07/05/19) tetracycline (Verified Allergy, Mild, 07/05/19) Penicillins (Verified Allergy, Unknown, 07/05/19) Sulfa (Sulfonamide Antibiotics) (Verified Allergy, Unknown, 07/05/19) Uncoded Allergies: NARCOTIC (Allergy, Mild, 12/01/16) Home Medications Apixaban 2.5 Mg Tablet, 2.5 MG PO BID, (Reported) Calcium Carbonate 300 Mg Tab.chew, 300 MG PO UD PRN for HEARTBURN, (Reported) Cetirizine HCl 10 Mg Tablet, 10 MG PO DAILY, (Reported) Cinacalcet HCl 90 Mg Tablet, 90 MG PO BID, (Reported) Flecainide Acetate 50 Mg Tablet, 50 MG PO BID, (Reported) Lactobacillus Rhamnosus GG 1 Each Capsule, 1 EACH PO DAILY, (Reported) Loperamide HCl 2 Mg Capsule, 2 MG PO UD PRN for DIARRHEA, (Reported) Mirtazapine 15 Mg Tablet, 7.5 MG PO DAILY, (Reported) take 1/2 of 15mg tab Multivitamin 1 Each Tablet, 1 EACH PO DAILY, (Reported) Sevelamer Carbonate 800 Mg Tablet, 1,600 MG PO TIDWM, (Reported) TAKES 2 (800 MG) TABLETS Tramadol HCl 50 Mg Tablet, 50 MG PO Q6H PRN for PAIN Prescribed by: LEONIE GARCIA on 06/11/19 6420 Patient Home Medication List Home Medication List Reviewed: Yes Review of Systems Review of Systems Constitutional: no symptoms reported Respiratory: No Symptoms Reported; Denies Cough, Denies Shortness of Air Cardiovascular: No Symptoms Reported Gastrointestinal: See HPI Genitourinary: See HPI Psychiatric/Neurological: See HPI (POOR HISTORIAN/DEMENTIA ) Past Wltkggk-Ngbmei-Nakeyc Hx Past Med/Social Hx: Reviewed and Corrections made Patient Social History 2nd Hand Smoke Exposure: No Recent Hopitalizations: No Immunizations Up To Date Tetanus Booster (TDap): Unknown Date of Pneumonia Vaccine: Jan 04, 2012 Date of Influenza Vaccine: Dec 28, 2018 Seasonal Allergies Seasonal Allergies: No Past Medical History Surgeries: Yes (DIALYSIS GRAFT/SHUNT RIGHT UPPER ARM; RIGHT KNEE TUMOR REMOVAL ) Appendectomy, Dialysis, Hysterectomy, Orthopedic, Tonsillectomy, Vascular Surgery Respiratory: Yes COPD Currently Using CPAP: No Currently Using BIPAP: No Cardiac: Yes Atrial Fibrillation, Heart Murmur, High Cholesterol, Hypertension, Irregular Heartbeat Neurological: No Reproductive Disorders: No 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 No Pertinent Family Hx PSH: -07/07/19--EGD/ESOPHAGEAL DILATION AND PARACENTESIS -MULTIPLE EGD'S -MULTIPLE PARACENTESIS Physical Exam Vital Signs Vital Signs - First Documented 07/24/19 09:55 Temp 36.5 Pulse 61 Resp 18 B/P (MAP) 118/47 (70) Capillary Refill : Height/Weight/BMI Height: 5'7.00" Weight: 110lbs. 0oz. [id number]; 18.82 BMI Method:Actual General Appearance: WD/WN, no apparent distress HEENT: PERRL/EOMI, pale conjunctivae (R), pale conjunctivae (L), other (UPPER DENTURES IN PLACE. 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, no motor/sensory deficits, alert, normal mood/affect, oriented x 3 (BUT POOR MEMORY) Skin: warm/dry, pallor Focused Exam Lactate Level 07/24/19 10:03: Lactic Acid Level 1.74 Lactic Acid Level Laboratory Tests Test 07/24/19 10:03 Lactic Acid Level 1.74 MMOL/L (0.50-2.00) Progress/Results/Core Measures Results/Orders Lab Results Laboratory Tests Test 07/24/19 10:03 Range/Units White Blood Count 8.1 4.3-11.0 10^3/uL Red Blood Count 2.01 L 4.35-5.85 10^6/uL Hemoglobin 6.4 *L 11.5-16.0 G/DL Hematocrit 21 L 35-52 % Mean Corpuscular Volume 103 H 80-99 FL Mean Corpuscular Hemoglobin 32 25-34 PG Mean Corpuscular Hemoglobin Concent 31 L 32-36 G/DL Red Cell Distribution Width 17.3 H 10.0-14.5 % Platelet Count 310 130-400 10^3/uL Mean Platelet Volume 10.0 7.4-10.4 FL Neutrophils (%) (Auto) 76 H 42-75 % Lymphocytes (%) (Auto) 15 12-44 % Monocytes (%) (Auto) 7 0-12 % Eosinophils (%) (Auto) 1 0-10 % Basophils (%) (Auto) 1 0-10 % Neutrophils # (Auto) 6.1 1.8-7.8 X 10^3 Lymphocytes # (Auto) 1.2 1.0-4.0 X 10^3 Monocytes # (Auto) 0.6 0.0-1.0 X 10^3 Eosinophils # (Auto) 0.1 0.0-0.3 10^3/uL Basophils # (Auto) 0.0 0.0-0.1 10^3/uL Prothrombin Time 14.9 H 12.2-14.7 SEC INR Comment 1.1 0.8-1.4 Activated Partial Thromboplast Time 25 24-35 SEC Sodium Level 142 135-145 MMOL/L Potassium Level 5.0 3.6-5.0 MMOL/L Chloride Level 98 98-107 MMOL/L Carbon Dioxide Level 28 21-32 MMOL/L Anion Gap 16 H 5-14 MMOL/L Blood Urea Nitrogen 73 H 7-18 MG/DL Creatinine 5.46 H 0.60-1.30 MG/DL Estimat Glomerular Filtration Rate 8 BUN/Creatinine Ratio 13 Glucose Level 93 70-105 MG/DL Lactic Acid Level 1.74 0.50-2.00 MMOL/L Calcium Level 8.3 L 8.5-10.1 MG/DL Corrected Calcium 8.7 8.5-10.1 MG/DL Magnesium Level 2.7 H 1.6-2.4 MG/DL Total Bilirubin 0.4 0.1-1.0 MG/DL Aspartate Amino Transf (AST/SGOT) 12 5-34 U/L Alanine Aminotransferase (ALT/SGPT) 7 0-55 U/L Alkaline Phosphatase 106 40-136 U/L Ammonia 22 11-32 UMOL/L Total Protein 6.3 L 6.4-8.2 GM/DL Albumin 3.5 3.2-4.5 GM/DL Amylase Level 127 H 25-125 U/L Lipase 60 8-78 U/L My Orders Orders - NAFISA ZAYAS DO Ed Iv/Invasive Line Start (07/24/19 09:52) Ekg Tracing (07/24/19:52) Monitor-Rhythm Ecg Trace Only (07/24/19:52) Amylase (07/24/19 09:52) Cbc With Automated Diff (07/24/19:52) Comprehensive Metabolic Panel (07/24/19 09:52) Lipase (07/24/19 09:52) Magnesium (07/24/19 09:52) Protime With Inr (07/24/19 09:52) Partial Thromboplastin Time (07/24/19 09:52) Ammonia (07/24/19 10:01) Lactic Acid Analyzer (07/24/19 10:01) Ct Abdomen/Pelvis Wo (07/24/19 10:01) Chest 1 View, Ap/Pa Only (07/24/19 10:01) Blood Culture (07/24/19 10:31) Pantoprazole Injection (Protonix Injecti (07/24/19 11:00) Medications Given in ED Current Medications Medications Dose Ordered Sig/Nisha Route Start Time Stop Time Status Last Admin Dose Admin Pantoprazole 80 mg ONCE ONCE IV 07/24/19 11:00 07/24/19 11:01 DC 07/24/19 11:09 80 MG Vital Signs/I&O 07/24/19 09:55 Temp 36.5 Pulse 61 Resp 18 B/P (MAP) 118/47 (70) Progress Progress Note : Progress Note NO VOMITING OR DIARRHEA DURING ER STAY NO COMPLAINTS OF ANY KIND DURING ER STAY HEMOCCULT NEGATIVE VITALS STABLE Initial ECG Impression Date: Jul 24, 2019 Initial ECG Impression Time: 10:45 Initial ECG Rate: 59 Initial ECG Rhythm: Normal Sinus (IVCD) Diagnostic Imaging Comments CT ABDOMEN/PELVIS--PER RADIOLOGIST REPORT AT 1055 FINDINGS: Limited views of the lower thorax show a moderate-sized hiatal hernia. The liver is normal without focal lesion. There is no biliary ductal dilation. The gallbladder is not well seen and may be decompressed versus surgically absent. Pancreas is normal. Spleen is normal. Adrenal glands are normal. The kidneys are atrophic. There is no hydronephrosis. Urinary bladder is decompressed. Visualized bowel is normal in caliber without obstruction or inflammation. There is a large volume of ascites, increased from prior exam. No free air is seen. No abdominal or pelvic lymphadenopathy. Aorta is normal in caliber without aneurysm. There are no suspicious osseus lesions. IMPRESSION: Increase in large volume ascites. CXR--NO ACUTE PROCESS/STABLE FROM PREVIOUS--PER RADIOLOGIST REPORT AT 1055 Reviewed: Reviewed by Me Departure Communication (Admissions) 1102--CALLED SANGEETA Impression Primary Impression: ESRD on dialysis Additional Impressions: Severe anemia Nausea vomiting and diarrhea Ascites SUSPECTED GI BLEEDING Disposition: SHT-TRM HOSP Condition: Stable Transfer Transfer Reason: Exceeds level of care Transfer Facility: [place], [place] Method of Transfer: EMS Departure-Patient Inst. Referrals: NALLELY SOLIMAN MD (PCP/Family) Primary Care Physician NAFISA ZAYAS DO Jul 24, 2019 10:16
[2019-07-24 10:17] LABS: HEMOGLOBIN 6.4 G/DL (11.5-16.0)
[2019-07-24 10:30] LABS: ALBUMIN 3.5 GM/DL (3.2-4.5)
[2019-07-24 10:31] LABS: CALCIUM 8.3 MG/DL (8.5-10.1)
[2019-07-24 10:32] LABS: TOTAL PROTEIN 6.3 GM/DL (6.4-8.2)
[2019-07-24 10:34] LABS: BILIRUBIN,TOTAL 0.4 MG/DL (0.1-1.0); INR 1.1 (0.8-1.4); PROTHROMBIN TIME PATIENT 14.9 SEC (12.2-14.7)
[2019-07-24 10:36] LABS: CREATININE SERUM 5.46 MG/DL (0.60-1.30)
[2019-07-24 10:39] LABS: MAGNESIUM 2.7 MG/DL (1.6-2.4)
--- OUTSIDE RECORDS SUMMARY | 2019-07-24 10:39 | XMS REPORT | Clinical Summary ---
Author Author [facility] Organization [facility] Address Unknown Phone Unavailable Care Team Providers Care Director Biostatistics Name Role Phone Aric Escoto MD PCP Martine Blanca MD Unavailable Unavailable Source Comments Some departments are not documenting in the electronic medical record. If you d o not see the information that you expected, contact Release of Information in [facility] [employer] Information Management department at [phone] for further assistan ce in locating additional records.[facility] Allergies Comments Active Allergy Reactions Severity Noted [...] WELLNESS 1940 VISIT DTAP/TDAP VACCINES (1 - 1958 Tdap) PHYSICAL (COMPREHENSIVE) 1958 EXAM SHINGLES RECOMBINANT 1990 VACCINE (1 of 2) OSTEOPOROSIS 2005 SCREENING/MONITORING PNEUMONIA (PPSV23) 2005 VACCINE (1 of 1 - PPSV23) INFLUENZA VACCINE 12/28/2019 HEPATITIS C SCREENING Completed 05/25/2014, 05/12/2013, 05/08/2011 Results Not on filefrom Last 3 Months Insurance Type Payer Benefit Subscriber ID Effective Phone Address Plan / Dates Group Medicare MEDICARE MEDICARE xxxxxxxxxx 2005-P PART A AND resent B Medicare MEDICARE MEDICARE xxxxxxxxxx 2005-P TRANSPLANT [place] 2013- [place] Present [facility]/[place] xxxxxxxxx 05/25/2013 - [place] HEALTH/SNF /CARE HOME Dulce Bashir Transplant Self 1940 [address] [place] [phone] (Work) 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
--- OUTSIDE RECORDS SUMMARY | 2019-07-24 10:44 | XMS REPORT | Continuity of Care Document ---
Demographics Preferred Language Unknown Marital Status Unknown Protestant Affiliation Unknown Race Unknown Ethnic Group Unknown Author Organization Unknown Address Unknown Phone Unavailable Allergies Active Description Code Type Severity Reaction Onset Reported/Identified Relationship to Patient Clinical Status Yes No Known Drug Allergies [id number] Drug Allergy Unknown N/A 02/03/2016 Yes NARCOTIC NARCOTIC Mild N/A 12/01/2016 Yes povidone-iodine [id number] D rug Allergy Mild N/A 07/05/2019 Yes ranitidine [id number] Drug Allerg y Mild N/A 07/05/2019 Yes soap [id number] Drug Allergy Mild N/A 07/05/2019 Yes tetracycline [id number] Drug Allergy Mild N/A 07/05/2019 Yes Penicillins [id number] Drug Aller gy Unknown N/A 07/05/2019 Yes Sulfa (Sulfonamide Antibiotics) [id number] Drug Allergy Unknown N/A 020 Medications There is no data. Problems Date [...] MD, Ot R01.1 CARDIAC MURMUR, UNSPECIFIED 02/04/2016 GAULT MD, NALLELY R Ot 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 ON RENAL DIALYSIS [...] UNSPECIFIED 02/12/2016 SANDRA MASON MD Ot Z79.01 PHOTOGRAPHY MANAGER (CURRENT) USE OF ANTICOAGULANT 02/12/2016 SANDRA MASON MD Ot Z79.899 OTHER PHOTOGRAPHY MANAGER (CURRENT) DRUG THERAPY 02/12/2016 SANDRA MASON MD [...] UNSPECIFIED 02/13/2016 SANDRA MASON MD Ot Z79.01 PRISON (CURRENT) USE OF ANTICOAGULANT 02/13/2016 SANDRA MASON MD Ot Z79.899 OTHER PHOTOGRAPHY MANAGER (CURRENT) DRUG THERAPY 02/13/2016 SANDRA MASON MD Ot 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 ON RENAL DIALYSIS 05/20/2016 Ranjit ARORA MD Ot I27 .2 OTHER SECONDARY PULMONARY HYPERTENSION 05/20/2016 Ranjit ARORA MD Ot I35 .1 NONRHEUMATIC AORTIC (VALVE) INSUFFICIENC 05/20/2016 Ranjit ARORA MD Ot I48.91 UNSPECIFIED ATRIAL FIBRILLATION 05/26/2016 MAITE BAER, Ranjit CADENA Ot I27 .2 OTHER SECONDARY PULMONARY HYPERTENSION [...] DISEASE 10/25/2016 ENRICO LINDSEY MD Ot T82.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 01 PHOTOGRAPHY MANAGER (CURRENT) USE OF ANTICOAGULANT 10/25/2016 ENRICO LINDSEY MD Ot Z99. 2 DEPENDENCE ON RENAL DIALYSIS 10/27/2016 ENRICO LINDSEY MD Ot D64. 9 ANEMIA, UNSPECIFIED 10/27/2016 ENRICO LINDSEY MD Ot N18. 6 END STAGE RENAL DISEASE 10/27/2016 ENRICO LINDSEY MD Ot T82.591A [facility] COMPL OF SURGICALLY CREATED ARTERIO 10/27/2016 ENRICO LINDSEY MD Ot Z79. 01 PHOTOGRAPHY MANAGER (CURRENT) USE OF ANTICOAGULANT 10/27/2016 ENRICO LINDSEY MD Ot Z99. 2 DEPENDENCE ON RENAL DIALYSIS 12/01/2016 Ranjit ARORA MD Ot I27 .2 OTHER SECONDARY PULMONARY HYPERTENSION 12/01/2016 Ranjit ARORA MD Ot I35 .1 NONRHEUMATIC AORTIC (VALVE) INSUFFICIENC 12/01/2016 Ranjit ARORA MD Ot I48.91 UNSPECIFIED ATRIAL FIBRILLATION 12/01/2016 SANDRA MASON MD Ot N18.6 END STAGE RENAL DISEASE 12/01/2016 SANDRA MASON MD Ot R25.3 FASCICULATION 12/01/2016 SANDRA MASON MD, Ot Z79.01 PRISON (CURRENT) USE OF ANTICOAGULANT 12/01/2016 SANDRA MASON MD Ot 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 ON RENAL DIALYSIS 12/05/2016 MAITE BAER, Ranjit CADENA Ot I27 .2 OTHER SECONDARY PULMONARY HYPERTENSION 12/05/2016 MAITE BAER, Ranjit CADENA Ot I35 .1 NONRHEUMATIC AORTIC (VALVE) INSUFFICIENC 12/05/2016 MAITE BAER, Ranjit CADENA Ot I48.91 UNSPECIFIED ATRIAL FIBRILLATION 12/08/2016 ARLEEN [...] ATRIAL FIBRILLATION 12/08/2016 ARLEEN LIND MD Ot N18 .6 END STAGE RENAL DISEASE 12/08/2016 ARLEEN LIND MD Ot R01 .1 CARDIAC MURMUR, UNSPECIFIED 12/08/2016 ARLEEN LIND MD Ot R64 CACHEXIA 12/08/2016 ARLEEN LIND MD Ot S32.592A OTH FRACTURE OF LEFT PUBIS, INIT ENCNTR 12/08/2016 ARLEEN LIND MD Ot S52.572A OTH INTARTIC FRACTURE OF LOWER END OF LE 12/08/2016 ARLEEN LIND MD Ot Z79.01 PHOTOGRAPHY MANAGER (CURRENT) USE OF ANTICOAGULANT 12/08/2016 ARLEEN LIND MD Ot Z96.652 PRESENCE OF LEFT ARTIFICIAL KNEE JOINT 12/08/2016 ARLEEN LIND MD Ot Z99 .2 DEPENDENCE ON RENAL DIALYSIS 12/09/2016 ARLEEN LIND MD Ot E78.00 PURE HYPERCHOLESTEROLEMIA, UNSPECIFIED 12/09/2016 DIOGO MD, ARLEEN N Ot F32 .9 MAJOR DEPRESSIVE DISORDER, SINGLE [...] ENCOUNTER 12/09/2016 ARLEEN LIND MD Ot Y92.538 [facility] ESTABLISH 12/09/2016 ARLEEN LIND MD Ot Z79.01 PRISON (CURRENT) USE OF ANTICOAGULANT 12/09/2016 ARLEEN LIND MD Ot Z96.652 PRESENCE OF LEFT ARTIFICIAL KNEE JOINT 12/09/2016 ARLEEN LIND MD Ot Z99 .2 DEPENDENCE ON RENAL DIALYSIS 03/08/2017 ENRICO LINDSEY MD J Ot E78. 00 PURE HYPERCHOLESTEROLEMIA, UNSPECIFIED 03/08/2017 ENRICO LINDSEY MD J Ot I12. 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 91 UNSPECIFIED ATRIAL FIBRILLATION 03/08/2017 ENRICO LINDSEY MD J Ot K56. 7 ILEUS, UNSPECIFIED 03/08/2017 ENRICO LINDSEY MD J Ot K59. 00 CONSTIPATION, UNSPECIFIED 03/08/2017 ROSALIA BAER ENRICO J Ot M54. 5 LOW BACK PAIN 03/08/2017 ROSALIA BAER ENRICO J Ot N18. 6 END STAGE RENAL DISEASE 03/08/2017 ROSALIA BAER ENRICO J Ot Z99. 2 DEPENDENCE ON RENAL DIALYSIS 03/09/2017 URIAH LINDSEY MDUS J Ot E78. 00 PURE HYPERCHOLESTEROLEMIA, UNSPECIFIED [...] E78.00 PURE HYPERCHOLESTEROLEMIA, UNSPECIFIED 04/20/2017 ANDREW SIERRA WIRELESS NETWORK ENGINEER Ot I10 ESSENTIAL (PRIMARY) HYPERTENSION 04/20/2017 ANDREW SIERRA WIRELESS NETWORK ENGINEER Ot I48.91 UNSPECIFIED ATRIAL FIBRILLATION 04/20/2017 ANDREW SIERRA APRN Ot T82.838A HEMORRHAGE DUE TO VASCULAR PROSTH DEV/GR 04/20/2017 ANDREW SIERRA WIRELESS NETWORK ENGINEER Ot Z87.81 PERSONAL HISTORY OF (HEALED) TRAUMATIC [...] J32.9 CHRONIC SINUSITIS, UNSPECIFIED 05/29/2017 SANDRA MASON MD, Ot J40 BRONCHITIS, NOT [...] ABSENCE OF OTHER ORGANS 06/04/2017 SANDRA MASON MD Ot 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 ON [...] Z99. 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 KID 08/10/2018 BERNMONIQUE LUTHER Ot I21.4 NON- ST ELEV[place] (NSTEMI) MYOCARDIAL INF 08/10/2018 BERNOT LUTHER Ot I48.91 UNSPECIFIED ATRIAL FIBRILLATION 08/10/2018 BERNOT LUTHER Ot N18.6 END STAGE RENAL DISEASE 08/10/2018 BERNOT LUTHER Ot R06.02 SHORTNESS OF BREATH 08/10/2018 BERNOT LUTHER Ot Z87.19 PERSONAL HISTORY OF OTHER DISEASES OF TH 08/10/2018 BERNOT LUTHER Ot Z88.0 ALLERGY STATUS TO PENICILLIN 08/10/2018 BERNMONIQUE LUTHER Ot Z88.1 ALLERGY STATUS TO OTHER [...] Asher Ot E78.00 PURE HYPERCHOLESTEROLEMIA, UNSPECIFIED 09/07/2018 ART BAER, SEGUN Asher Ot I12.0 HYP CHR KIDNEY DISEASE W STAGE 5 CHR KID 09/07/2018 SEGUN CORDOVA MD Ot I48.91 UNSPECIFIED ATRIAL FIBRILLATION 09/07/2018 SEGUN CORDOVA MD Ot M79.89 OTHER SPECIFIED SOFT TISSUE DISORDERS 09/07/2018 SEGUN CORDOVA MD Ot N18.6 END STAGE RENAL DISEASE 09/07/2018 SEGUN CORDOVA MD Ot R60.0 LOCALIZED EDEMA 09/07/2018 SEGUN CORDOVA MD Ot Z79.01 PHOTOGRAPHY MANAGER (CURRENT) USE OF ANTICOAGULANT 09/07/2018 SEGUN CORDOVA MD Ot Z87.01 PERSONAL HISTORY OF PNEUMONIA (RECURRENT 09/07/2018 ART BAER, SEGUN Asher Ot Z88.0 ALLERGY STATUS TO PENICILLIN 09/07/2018 SEGUN CORDOVA MD Ot Z88.1 ALLERGY STATUS TO OTHER ANTIBIOTIC AGENT 09/07/2018 SEGUN CORDOVA MD Ot Z88.2 ALLERGY STATUS TO SULFONAMIDES STATUS 09/07/2018 SEGUN CORDOVA MD Ot Z88.8 ALLERGY STATUS TO OTH DRUG/MEDS/BIOL SUB 09/07/2018 SEGUN CORDOVA MD Ot Z90.49 ACQUIRED ABSENCE OF OTHER SPECIFIED PART 09/07/2018 SEGUN CORDOVA MD Ot Z90.710 ACQUIRED ABSENCE OF BOTH [...] EDEMA 09/09/2018 SEGUN CORDOVA MD, Ot Z79.01 PHOTOGRAPHY MANAGER (CURRENT) USE OF ANTICOAGULANT 09/09/2018 SEGUN CORDOVA MD, Ot Z87.01 PERSONAL HISTORY OF PNEUMONIA (RECURRENT 09/09/2018 SEGUN CORDOVA MD, Ot Z88.0 ALLERGY STATUS TO PENICILLIN 09/09/2018 SEGUN CORDOVA MD Ot Z88.1 ALLERGY STATUS TO OTHER ANTIBIOTIC AGENT 09/09/2018 SEGUN CORDOVA MD, Ot Z88.2 ALLERGY STATUS TO SULFONAMIDES STATUS 09/09/2018 SEGUN CORDVOA MD, Ot Z88.8 ALLERGY STATUS TO [facility] DRUG/MEDS/BIOL SUB 09/09/2018 SEGUN CORDOVA MD, Ot Z90.49 ACQUIRED ABSENCE OF OTHER SPECIFIED PART 09/09/2018 SEGUN CORDOVA MD, Ot Z90.710 ACQUIRED ABSENCE OF BOTH CERVIX AND UTER 09/09/2018 SEGUN CORDOVA MD Ot Z90.89 ACQUIRED ABSENCE [...] ALLERGY STATUS TO PENICILLIN 10/17/2018 ANDREW SIERRA APRN Ot Z88 .1 ALLERGY [...] ABSENCE OF BOTH CERVIX AND UTER 11/08/2018 ENRICO LINDSEY MD Ot Z91.041 RADIOGRAPHIC DYE ALLERGY STATUS 11/08/2018 [...] RADIOGRAPHIC DYE ALLERGY STATUS 12/06/2018 SEGUN CORDOVA MD Ot 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 ON RENAL DIALYSIS 12/07/2018 JOURDAN BAER, NALLELY Hatch Ot D64.9 ANEMIA, UNSPECIFIED 12/11/2018 SEGUN CORDOVA [...] Ot R18.8 OTHER ASCITES 12/11/2018 SEGUN CORDOVA MD Ot Z86.012 PERSONAL HISTORY OF BENIGN CARCINOID YOUSIF 12/11/2018 SEGUN CORDOVA MD Ot Z88.0 ALLERGY STATUS TO PENICILLIN 12/11/2018 SEGUN CORDOVA MD Ot Z88.1 ALLERGY STATUS TO OTHER ANTIBIOTIC AGENT 12/11/2018 SEGUN CORDOVA MD Ot Z88.2 ALLERGY STATUS TO SULFONAMIDES STATUS 12/11/2018 SEGUN CORDOVA MD Ot Z88.8 ALLERGY STATUS TO OTH DRUG/MEDS/BIOL SUB 12/11/2018 SEGUN CORDOVA MD Ot Z90.49 ACQUIRED ABSENCE OF OTHER SPECIFIED PART 12/11/2018 SEGUN CORDOVA MD Ot Z90.710 ACQUIRED ABSENCE OF BOTH CERVIX AND UTER 12/11/2018 SEGUN CORDOVA MD Ot Z90.89 ACQUIRED ABSENCE OF OTHER ORGANS 12/11/2018 SEGUN CORDOVA MD, Ot Z91.041 RADIOGRAPHIC DYE ALLERGY STATUS 12/11/2018 BRUEGGEMANN MD, SEGUN T Ot 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 ON RENAL DIALYSIS 12/20/2018 [...] 6 END STAGE RENAL DISEASE 01/06/2019 PATRICIO TIEXEIRA DO Ot R19. 7 DIARRHEA, UNSPECIFIED 01/06/2019 PATRICIO TEIXEIRA DO Ot Z79. 01 PHOTOGRAPHY MANAGER (CURRENT) USE OF ANTICOAGULANT 01/06/2019 PATRICIO TEIXEIRA DO Ot Z79. 82 PHOTOGRAPHY MANAGER (CURRENT) USE OF ASPIRIN 01/06/2019 PATRICIO TEIXEIRA [...] Ot Z99. 2 DEPENDENCE ON RENAL DIALYSIS 01/06/2019 PATRICIO TEIXEIRA DO Ot D12. 3 [...] 01/06/2019 PATRICIO TEIXEIRA DO Ot Z79. 01 PHOTOGRAPHY MANAGER (CURRENT) USE OF ANTICOAGULANT 01/06/2019 PATRICIO TEIXEIRA DO Ot Z79. 82 PHOTOGRAPHY MANAGER (CURRENT) USE OF ASPIRIN 01/06/2019 PATRICIO TEIXEIRA [...] 01/11/2019 PATRICIO TEIXEIRA DO Ot Z79. 01 PRISON (CURRENT) USE OF ANTICOAGULANT 01/11/2019 PATRICIO TEIXEIRA DO Ot Z79. 82 PRISON (CURRENT) USE OF ASPIRIN 01/11/2019 PATRICIO TEIXEIRA [...] DO Ot R18. 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 8 OTHER ASCITES 06/01/2019 NALLELY SOLIMAN MD Ot D64.9 ANEMIA, UNSPECIFIED 06/01/2019 TEIXEIRA PATRICIO FERNANDEZ Ot R18. 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 8 OTHER ASCITES 06/06/2019 ANDREW SIERRA APRN Ot I12 .0 HYP CHR KIDNEY DISEASE W STAGE 5 CHR KID 06/06/2019 ANDREW SIERRA APRN Ot I48.91 UNSPECIFIED ATRIAL FIBRILLATION 06/06/2019 ANDREW SIERRA APRN Ot N18 .6 END STAGE RENAL DISEASE 06/06/2019 ANDREW SIERRA APRN Ot R18 .8 OTHER ASCITES 06/06/2019 ANDREW SIERRA APRN Ot Z79.01 PRISON (CURRENT) USE OF ANTICOAGULANT 06/06/2019 ANDREW SIERRA APRN Ot Z88 .0 ALLERGY STATUS TO PENICILLIN 06/06/2019 ANDREW SIERRA APRN Ot Z88 .1 ALLERGY STATUS TO OTHER ANTIBIOTIC AGENT 06/06/2019 ANDREW SIERRA WIRELESS NETWORK ENGINEER Ot Z88 .2 ALLERGY STATUS TO SULFONAMIDES STATUS 06/06/2019 ANDREW SIERRA WIRELESS NETWORK ENGINEER Ot Z88 .8 ALLERGY STATUS TO OTH DRUG/MEDS/BIOL SUB 06/06/2019 ANDERW SIERRA WIRELESS NETWORK ENGINEER Ot Z99 .2 DEPENDENCE ON RENAL DIALYSIS 06/09/2019 SEGUN CORDOVA MD Ot D64.9 ANEMIA, UNSPECIFIED 06/09/2019 SEGUN CORDOVA MD Ot I12.0 HYP CHR KIDNEY DISEASE W STAGE 5 CHR KID 06/09/2019 SEGUN CORDOVA MD Ot I48.91 UNSPECIFIED ATRIAL FIBRILLATION 06/09/2019 SEGUN CORDOVA MD Ot L76.22 POSTPROC HEMORRHAGE OF SKIN, SUBCU FOLLO 06/09/2019 SEGUN CORDOVA MD Ot N18.6 END STAGE RENAL DISEASE 06/09/2019 SEGUN CORDOVA MD Ot Z79.01 PHOTOGRAPHY MANAGER (CURRENT) USE OF ANTICOAGULANT 06/09/2019 SEGUN CORDOVA MD Ot Z88.0 ALLERGY STATUS TO PENICILLIN 06/09/2019 SEGUN CORDOVA MD Ot Z88.1 ALLERGY STATUS TO OTHER ANTIBIOTIC AGENT 06/09/2019 SEGUN CORDOVA MD Ot Z88.2 ALLERGY STATUS TO SULFONAMIDES STATUS 06/09/2019 SEGUN CORDOVA MD Ot Z88.8 ALLERGY STATUS TO OTH DRUG/MEDS/BIOL SUB 06/09/2019 SEGUN CORDOVA MD Ot 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 ON RENAL DIALYSIS 06/11/2019 Ot I48.91 UNS PECIFIED ATRIAL FIBRILLATION 06/11/2019 Ot R10.32 LEF T LOWER QUADRANT PAIN 06/11/2019 Ot Z79.01 WILLIAM G TERM (CURRENT) USE OF ANTICOAGULANT 06/11/2019 Ot Z88.0 MATT RGY STATUS TO PENICILLIN 06/11/2019 Ot Z88.1 MATT RGY STATUS TO OTHER ANTIBIOTIC AGENT 06/11/2019 Ot Z88.2 MATT RGY STATUS TO SULFONAMIDES STATUS 06/11/2019 Ot Z88.8 MATT RGY STATUS TO OTH DRUG/MEDS/BIOL SUB 06/11/2019 Ot Z98.890 OT HER SPECIFIED POSTPROCEDURAL STATES 06/13/2019 TEIXEIRA DO, PATRICIO D Ot R18. 8 OTHER ASCITES 06/13/2019 SEGUN CORDOVA MD Ot D64.9 ANEMIA, UNSPECIFIED 06/13/2019 SEGUN CORDOVA MD Ot I12.0 HYP CHR KIDNEY DISEASE W STAGE 5 CHR KID 06/13/2019 SEGUN CORDOVA MD Ot I48.91 UNSPECIFIED ATRIAL FIBRILLATION 06/13/2019 SEGUN CORDOVA MD Ot L76.22 POSTPROC HEMORRHAGE OF SKIN, SUBCU FOLLO 06/13/2019 SEGUN CORDOVA MD Ot N18.6 END STAGE RENAL DISEASE 06/13/2019 SEGUN CORDOVA MD Ot Z79.01 PHOTOGRAPHY MANAGER (CURRENT) USE OF ANTICOAGULANT 06/13/2019 SEGUN CORDOVA MD Ot Z88.0 ALLERGY STATUS TO PENICILLIN 06/13/2019 SEGUN CORDOVA MD Ot Z88.1 ALLERGY STATUS TO OTHER ANTIBIOTIC AGENT 06/13/2019 SEGUN CORDOVA MD Ot Z88.2 ALLERGY STATUS TO SULFONAMIDES STATUS 06/13/2019 SEGUN CORDOVA MD Ot Z88.8 ALLERGY STATUS TO OTH DRUG/MEDS/BIOL SUB 06/13/2019 SEGUN CORDOVA MD Ot 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 ON RENAL DIALYSIS 06/14/2019 Ot I48.91 UNS PECIFIED ATRIAL FIBRILLATION 06/14/2019 Ot R10.32 LEF T LOWER QUADRANT PAIN 06/14/2019 Ot Z79.01 WILLIAM G TERM (CURRENT) USE OF ANTICOAGULANT 06/14/2019 Ot Z88.0 MATT RGY STATUS TO PENICILLIN 06/14/2019 Ot Z88.1 MATT RGY STATUS TO OTHER ANTIBIOTIC AGENT 06/14/2019 Ot Z88.2 MATT RGY STATUS TO SULFONAMIDES STATUS 06/14/2019 Ot Z88.8 MATT RGY STATUS TO OTH DRUG/MEDS/BIOL SUB 06/14/2019 Ot Z98.890 OT HER SPECIFIED POSTPROCEDURAL STATES 06/15/2019 SEGUN CORDOVA MD Ot D64.9 ANEMIA, UNSPECIFIED 06/15/2019 SEGUN CORDOVA MD Ot I12.0 HYP CHR KIDNEY DISEASE W STAGE 5 CHR KID 06/15/2019 SEGUN CORDOVA MD, Ot I48.91 UNSPECIFIED ATRIAL FIBRILLATION 06/15/2019 SEGUN CORDOVA MD Ot L76.22 POSTPROC HEMORRHAGE OF SKIN, SUBCU FOLLO 06/15/2019 SEGUN CORDOVA MD, Ot N18.6 END STAGE RENAL DISEASE 06/15/2019 SEGUN CORDOVA MD, Ot Z79.01 PRISON (CURRENT) USE OF ANTICOAGULANT 06/15/2019 SEGUN CORDOVA MD, Ot Z88.0 ALLERGY STATUS TO PENICILLIN 06/15/2019 SEGUN CORDOVA MD, Ot Z88.1 ALLERGY STATUS TO OTHER ANTIBIOTIC AGENT 06/15/2019 SEGUN CORDOVA MD, Ot Z88.2 ALLERGY STATUS TO SULFONAMIDES STATUS 06/15/2019 SEGUN CORDOVA MD, Ot Z88.8 ALLERGY STATUS TO OTH DRUG/MEDS/BIOL SUB 06/15/2019 SEGUN CORDOVA MD Ot 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 ON RENAL DIALYSIS 06/26/2019 CHEYANNE WELLS WIRELESS NETWORK ENGINEER Ot K59.9 FUNCTIONAL INTESTINAL DISORDER, UNSPECIF 06/26/2019 CHEYANNE WELLS WIRELESS NETWORK ENGINEER Ot K80.20 CALCULUS OF GALLBLADDER W/O CHOLECYSTITI 06/26/2019 CHEYANNE WELLS APRN Ot R18.8 OTHER ASCITES 07/05/2019 Ranjit ARORA MD Ot I27 .2 OTHER SECONDARY PULMONARY HYPERTENSION 07/05/2019 Ranjit ARORA MD Ot I35 .1 NONRHEUMATIC AORTIC (VALVE) INSUFFICIENC 07/05/2019 Ranjit ARORA MD Ot I48.91 UNSPECIFIED ATRIAL FIBRILLATION 07/05/2019 DARA DESAI MD Ot Z01.81 8 ENCOUNTER FOR OTHER PREPROCEDURAL EXAMIN 07/05/2019 PATRICIO TEIXEIRA DO Ot R18. 8 OTHER ASCITES 07/06/2019 DARA DESAI MD, Ot Z01.81 8 ENCOUNTER FOR OTHER PREPROCEDURAL EXAMIN 07/10/2019 PATRICIO TEIXEIRA DO Ot R18. 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 07/12/2019 DARA DESAI MD, Ot I48.91 UNSPECIFIED ATRIAL FIBRILLATION 07/12/2019 DARA DESAI MD, Ot I50.9 HEART FAILURE, UNSPECIFIED 07/12/2019 DARA DESAI MD, Ot J44.9 CHRONIC OBSTRUCTIVE PULMONARY DISEASE, U 07/12/2019 DARA DESAI MD, Ot K21.0 GASTRO-ESOPHAGEAL REFLUX DISEASE WITH ES 07/12/2019 DARA DESAI MD, Ot K22.2 ESOPHAGEAL OBSTRUCTION 07/12/2019 DARA DESAI MD, Ot K29.70 GASTRITIS, UNSPECIFIED, WITHOUT BLEEDING 07/12/2019 DARA DESAI MD, Ot K44.9 DIAPHRAGMATIC HERNIA WITHOUT OBSTRUCTION 07/12/2019 DARA DESAI MD, Ot K80.20 CALCULUS OF GALLBLADDER W/O CHOLECYSTITI 07/12/2019 DARA DESAI MD, Ot N18.6 END STAGE RENAL DISEASE 07/12/2019 DARA DESAI MD, Ot R18.8 OTHER ASCITES 07/12/2019 DARA DESAI MD, Ot Z79.01 PHOTOGRAPHY MANAGER (CURRENT) USE OF ANTICOAGULANT 07/12/2019 DARA DESAI MD, Ot Z79.82 PRISON (CURRENT) USE OF ASPIRIN 07/12/2019 DARA DESAI MD, Ot Z79.89 9 OTHER PRISON (CURRENT) DRUG THERAPY 07/12/2019 DARA DESAI MD, Ot Z96.65 2 PRESENCE OF LEFT ARTIFICIAL KNEE JOINT 07/12/2019 DARA DESAI MD, Ot 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 ON RENAL DIALYSIS 07/18/2019 DARA DESAI MD, Ot E78.5 HYPERLIPIDEMIA, UNSPECIFIED 07/18/2019 DARA DESAI MD, Ot F31.9 BIPOLAR DISORDER, UNSPECIFIED 07/18/2019 DARA DESAI MD, Ot F32.9 MAJOR DEPRESSIVE DISORDER, SINGLE EPISOD 07/18/2019 DARA DESAI MD, Ot I07.1 RHEUMATIC TRICUSPID INSUFFICIENCY 07/18/2019 DARA DESAI MD, Ot 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 [place] CORONARY 07/18/2019 DARA DESAI MD, Ot I48.91 UNSPECIFIED ATRIAL FIBRILLATION 07/18/2019 DARA DESAI MD, Ot I50.9 HEART FAILURE, UNSPECIFIED 07/18/2019 DARA DESAI MD, Ot J44.9 CHRONIC OBSTRUCTIVE PULMONARY DISEASE, U 07/18/2019 DARA DESAI MD, Ot K21.0 GASTRO-ESOPHAGEAL REFLUX DISEASE WITH ES 07/18/2019 DARA DESAI MD, Ot K22.2 ESOPHAGEAL OBSTRUCTION 07/18/2019 DARA DESAI MD, Ot K29.70 GASTRITIS, UNSPECIFIED, WITHOUT BLEEDING 07/18/2019 DARA DESAI MD, Ot K44.9 DIAPHRAGMATIC HERNIA WITHOUT OBSTRUCTION 07/18/2019 DARA DESAI MD, Ot K80.20 CALCULUS OF GALLBLADDER W/O CHOLECYSTITI 07/18/2019 DARA DESAI MD, Ot N18.6 END STAGE RENAL DISEASE 07/18/2019 DARA DESAI MD, Ot R18.8 OTHER ASCITES 07/18/2019 DARA DESAI MD, Ot Z79.01 PHOTOGRAPHY MANAGER (CURRENT) USE OF ANTICOAGULANT 07/18/2019 DARA DESAI MD, Ot Z79.82 PHOTOGRAPHY MANAGER (CURRENT) USE OF ASPIRIN 07/18/2019 DARA DESAI MD, Ot Z79.89 9 OTHER PRISON (CURRENT) DRUG THERAPY 07/18/2019 DARA DESAI MD, Ot Z96.65 2 PRESENCE OF LEFT ARTIFICIAL KNEE JOINT 07/18/2019 DARA DESAI MD, Ot 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 ON RENAL DIALYSIS Procedures There is no data. Results Test [...] 02/12/16 09:10 BNP level 2354.8 pg/mL <100.0 Prothrombin Time (PT) - 03/26/16 13:50 INR 1.4 0.8-1.2 Prothrombin Time 15.0 sec 9.1-12.0 TSH+Free T4 - 07/09/16 13:56 TSH 1.510 uIU/mL 0.450-4.500 T4,Free(Direct) 1.16 ng/dL 0.82-1.77 Lipid Panel - 07/09/16 13:56 Cholesterol, Total 149 mg/dL 100-199 Triglycerides 72 mg/dL 0-149 HDL Cholesterol 84 mg/dL >39 VLDL Cholesterol Jimi 14 mg/dL 5-40 LDL Cholesterol Calc 51 mg/dL 0-99 Hemoglobin A1c - 07/09/16 13:56 Hemoglobin A1c 6.1 % 4.8-5.6 Amylase, Serum - 07/09/16 13:56 Amylase, Serum 314 U/L 31-124 Lipase, Serum - 07/09/16 13:56 Lipase, Serum 204 U/L 0-59 Complete blood count (CBC) with automate d [...] LEUKO REDUCED AS1 T RANSFUSED 04/01/17 1237 [facility] Blood type T Indirect antibody screen [facility] - 04/01/17 11:51 ABO+Rh group OP NR Transfusion band number [id number] [facility] Blood group antibody screen NEGATIVE NR G Whole blood hemoglobin and hematocrit [facility] - 04/01/17 15:00 Venous blood hemoglobin measurement [...] calculation of estimated glomerular filtration rate 6 [facility] Serum or plasma glucose measurement (mass/volume) 84 [...] INFLUENZA A AND B ANTIGENS BY IA [facility] Automated blood complete blood count (he mogram) [...] detection by light microscopy S LIGHT NRG Comprehensive metabolic panel - 04/13/18 15:30 Serum [...] - 04/13/18 16:35 Bacterial blood culture NG NRG Complete blood count (CBC) [...] 14:44 SALMONELLA AND SHIGELLA, CULTURE SEE NOTE NRG Complete blood count (CBC) with automate [...] poor plasma bycoagulation assay 33 s 24-35 Whole blood basic metabolic panel - 06/27 11:35 Serum or plasma sodium measurement (moles/volume) 131 mmol/L 135-145 Serum or plasma potassium measurement (moles/volume) 5.2 mmol/L 3.6-5.0 Serum or plasma chloride measurement (moles/volume) 94 mmol/L 98-107 Carbon dioxide 20 mmol/L 21-32 Serum or plasma anion gap determination (moles/volume) 17 mmol/L 5-14 Serum or plasma urea nitrogen measurement (mass/volume ) 41 mg/dL 7-18 Serum or plasma creatinine measurement (mass/volume) 6.20 mg/dL 0.60-1.30 Serum or plasma urea nitrogen/creatinine mass ratio 7 NRG Serum or plasma creatinine measurement w ith calculation of estimated glomerular filtration rate 7 NRG Serum or plasma glucose measurement (mass/volume) 77 mg/dL 70-105 Serum or plasma calcium measurement (mass/volume) 8.2 mg/dL 8.5-10.1 Complete blood count (CBC) with automate d white blood cell (WBC) differential - 07/24/19 10:03 Blood leukocytes automated count (number/volume) 8.1 10*3/uL 4.3-11.0 Blood erythrocytes automated count (number/volume) 2.01 10*6/uL 4.35-5.85 Venous blood hemoglobin measurement (mass/volume) 6.4 g/dL 11.5-16.0 Blood hematocrit (volume fraction) 21 % 35-52 Automated erythrocyte mean corpuscular volume 103 [foz_us] 80-99 Automated erythrocyte mean corpuscular h emoglobin (mass per erythrocyte) 32 pg 25-34 Automated erythrocyte mean corpuscular h emoglobin concentration measurement (mass/volume) 31 g/dL 32-36 Automated erythrocyte distribution width ratio 17. 3 % 10.0- 14.5 Automated blood platelet count (count/volume) 310 10*3/uL 130-400 Automated blood platelet mean volume measurement 10.0 [foz_us] 7.4-10.4 Automated blood neutrophils/100 leukocytes 76 % 42-75 Automated blood lymphocytes/100 leukocytes 15 % 12-44 Blood monocytes/100 leukocytes 7 % 0-12 Automated blood eosinophils/100 leukocytes 1 % 0-10 Automated blood basophils/100 leukocytes 1 % 0-10 Blood neutrophils automated count (number/volume) 6.1 10*3 1.8-7.8 Blood lymphocytes automated count (number/volume) 1.2 10*3 1.0-4.0 Blood monocytes automated count (number/volume) 0. 6 10*3 0.0-1.0 Automated eosinophil count 0.1 10*3/uL 0 .0-0.3 Automated blood basophil count (count/volume) 0.0 10*3/uL 0.0-0.1 Comprehensive metabolic panel - 07/24/19 10:03 Serum or plasma sodium measurement (moles/volume) 142 mmol/L 135-145 Serum or plasma potassium measurement (moles/volume) 5.0 mmol/L 3.6-5.0 Serum or plasma chloride measurement (moles/volume) 98 mmol/L 98-107 Carbon dioxide 28 mmol/L 21-32 Serum or plasma anion gap determination (moles/volume) 16 mmol/L 5-14 Serum or plasma glucose measurement (mass/volume) 93 mg/dL 70-105 Serum or plasma calcium measurement (mass/volume) 8.3 mg/dL 8.5-10.1 Serum or plasma total bilirubin measurement (mass/volu me) 0.4 mg/dL 0.1-1.0 Serum or plasma alkaline phosphatase oj surement (enzymatic activity/volume) 106 U/L 40-136 Serum or plasma protein measurement (mass/volume) 6.3 g/dL 6.4-8.2 Serum or plasma albumin measurement (mass/volume) 3.5 g/dL 3.2-4.5 CALCIUM CORRECTED 8.7 mg/dL 8.5-10.1 Blood lactic acid measurement (moles/vol ume) - 07/24/19 10:03 Blood lactic acid measurement (moles/volume) 1.74 mmol/L 0.50-2.00 Serum or plasma amylase measurement (enz ymatic activity/volume) - 07/24/19 10:03 Serum or plasma amylase measurement (enzymatic activit y/volume) 127 U/L 25-125 Ammonia - 07/24/19 10:03 Ammonia 22 umol/L 11-32 PT panel in platelet poor plasma by coag ulation assay - 07/24/19 10:03 Prothrombin time (PT) in platelet poor plasma by coagu lation assay 14.9 s 12.2-14.7 INR in platelet poor plasma or blood by coagulation as say 1.1 0.8-1.4 Activated partial thromboplastin time (a PTT) in platelet poor plasma bycoagulation assay - 07/24/19 10:03 Activated partial thromboplastin time (a PTT) in platelet poor plasma bycoagulation assay 25 s 24-35 Encounters ACCT No. Visit Date/Time Discharge Status Pt. Type Provider Facility Loc./Unit Complaint [id number] 07/10/2016 12:09:00 Document Registration [id number] 03/27/2016 08:06:00 Document Registration [id number] 05/02/2019 14:40:00 05/02/2019 23:59: 59 CLS Outpatient NALLELY SOLIMAN [facility] [id number] 10/31/2018 13:40:00 Document Registration [id number] 06/14/2017 13:00:00 Document Registration [id number] 07/07/2019 09:55:00 23:59:59 CLS Outpatient DARA DESAI MD [facility] RAD ABD PAIN [id number] 07/05/2019 05:37:00 10:13:00 DIS Outpatient DARA DESAI MD [facility] PREOP EGD [id number] 06/09/2019 09:51:00 11:34:00 DIS Emergency SEGUN CORDOVA MD [facility] ER PROCEDURE SITE BLEEDING [id number] 06/08/2019 13:35:00 23:59:59 CLS Outpatient PATRICIO TIEXEIRA DO [facility] RAD OTHER ASCITES [id number] 06/06/2019 11:17:00 13:24:00 DIS Emergency ANDREW SIERRA APRN [facility] ER ABD PAIN [id number] 06/02/2019 07:35:00 23:59:59 CLS Outpatient CHEYANNE WELLS APRN [facility] RAD ABD PAIN,DIARRH EA [id number] 01/27/2019 11:27:00 23:59:59 CLS Outpatient PATRICIO TEIXEIRA DO [facility] RAD RECURRENT ASCITIES [id number] 01/24/2019 13:43:00 23:59:59 CLS Outpatient Ranjit ARORA MD [facility] CARD MITRAL REGURGITATION [id number] 01/06/2019 09:13:00 12:00:00 DIS Outpatient PATRICIO TEIXEIRA DO [facility] ENDO DIARRHEA [id number] 01/02/2019 05:38:00 14:51:00 DIS Outpatient TEIXEIRA PATRICIO FERNANDEZ [facility] PREOP COLONOSCOPY [id number] 12/16/2018 08:46:00 23:59:59 CLS Outpatient PATRICIO TEIXEIRA DO [facility] SDC ASCITIES [id number] 12/06/2018 15:44:00 17:59:00 DIS Emergency SEGUN CORDOVA MD [facility] ER CP/SOB [id number] 11/04/2018 18:02:00 23:12:00 DIS Emergency ENRICO LINDSEY MD [facility] ER SOA [id number] 10/10/2018 11:29:00 13:12:00 DIS Emergency ANDREW SIERRA APRN [facility] ER ARM SWELLING [id number] 09/07/2018 16:29:00 19:09:00 DIS Emergency SEGUN CORDOVA MD [facility] ER LEG SWELLING [id number] 08/10/2018 17:09:00 05/15/2 019 22:30:00 DIS Emergency LUTHER HICKS [facility] ER SOA [id number] 08/08/2018 13:10:00 15:37:00 DIS Emergency ENRICO LINDSEY MD [facility] ER N/V [id number] 04/13/2018 15:23:00 019 18:00:00 DIS Emergency ANDREW SIERRA APRN [facility] ER WEAKNESS [id number] 05/29/2017 18:06:00 018 23:10:00 DIS Emergency SANDRA MASON MD [facility] ER SOA [id number] 04/20/2017 16:22:00 18:36:00 DIS Emergency ANDREW SIERRA APRN [facility] ER BLEEDING,NEED STITCHES [id number] 04/12/2017 12:28:00 14:55:00 DIS Emergency ENRICO LINDSEY MD [facility] ER SOA [id number] 04/01/2017 11:16:00 23:59:59 CLS Outpatient NALLELY SOLIMAN MD [facility] D64.9 [id number] 03/07/2017 20:03:00 00:39:00 DIS Emergency ENRICO LINDSEY MD [facility] ER BACK PAIN [id number] 03/03/2017 15:45:00 017 23:59:59 CLS Preadmit Ranjit ARORA MD [facility] CARD I48.91 AF [id number] 12/05/2016 13:00:00 017 13:05:00 DIS Inpatient ARLEEN LIND MD [facility] 4TH FX L DISTAL RADIUS, FX L PELVIS [id number] 12/01/2016 11:38:00 23:59:59 CLS Emergency SANDRA MASON MD [facility] ER POSSIBLE SEIZUR ES [id number] 10/25/2016 08:07:00 017 10:40:00 DIS Emergency ROSALIA BAER, ENRICO Dai [facility] ER DIALYSIS PORT BLEEDING [id number] 08/06/2016 09:45:00 017 23:59:59 CLS Preadmit Ranjit ARORA MD [facility] CARD AF I48.91 [id number] 07/01/2016 12:15:00 017 23:59:59 CLS Preadmit Ranjit ARORA MD [facility] CARD AF [id number] 04/01/2016 11:50:00 00:01:00 DIS Outpatient Ranjit ARORA MD [facility] CARD AF [id number] 02/12/2016 08:56:00 016 11:15:00 DIS Emergency MARLON BAER, SANDRA Wilder [facility] ER CHEST PAIN [id number] 02/03/2016 19:50:00 016 18:35:00 DIS Inpatient JOURDAN BAER, NALLELY Hatch [facility] ICU NEW ONSET ATRIAL FIB W/ RVR, ESRD ON DIALYSIS,HEAR [id number] 07/24/2019 10:18:00 Document Registration [id number] 06/11/2019 15:57:00 Document Registration
--- NOTE | 2019-07-24 10:50 | Diagnostic Imaging Report ---
EXAMINATION: CT Abdomen/Pelvis without contrast. TECHNIQUE: Multiple contiguous axial images were obtained through the abdomen and pelvis without the use of intravenous contrast. All CT scans use one or more of the following dose optimizing techniques: automated exposure control, MA and/or KvP adjustment based on a patient size and exam type, or iterative reconstruction. HISTORY: Diarrhea. COMPARISON: 12/06/2018. FINDINGS: Limited views of the lower thorax show a moderate-sized hiatal hernia. The liver is normal without focal lesion. There is no biliary ductal dilation. The gallbladder is not well seen and may be decompressed versus surgically absent. Pancreas is normal. Spleen is normal. Adrenal glands are normal. The kidneys are atrophic. There is no hydronephrosis. Urinary bladder is decompressed. Visualized bowel is normal in caliber without obstruction or inflammation. There is a large volume of ascites, increased from prior exam. No free air is seen. No abdominal or pelvic lymphadenopathy. Aorta is normal in caliber without aneurysm. There are no suspicious osseus lesions. IMPRESSION: Increase in large volume ascites. Dictated by: Dictated on workstation # [id number]
--- NOTE | 2019-07-24 10:53 | Diagnostic Imaging Report ---
INDICATION: Diarrhea and vomiting. TIME OF EXAM: 10:39 a.m. COMPARISON: Correlation is made with prior chest from 12/06/2018. FINDINGS: The heart is enlarged. Calcified nodule in the left upper lobe is unchanged. Chronic parenchymal density in the right perihilar region is stable. No new infiltrate is identified. There is no effusion or pneumothorax. IMPRESSION: Stable chronic changes when compared with the exam from 12/06/2018. No acute cardiopulmonary process is detected. Dictated by: Dictated on workstation # [id number]
[2019-07-24] MEDS ORDERED: PANTOPRAZOLE 40 MG (PROTONIX) VIAL IV ONE (11:00)
[2019-07-24 12:50] VITALS: BP 113/52
== END 2019-07-24 12:50 | disposition short-term general hospital (02) ==
LOC: EDUNIT# 09:51 → ER 09:52
DX: I12.0 Hypertensive chronic kidney disease with stage 5 chronic kidney disease or end stage renal disease (principal); N18.6 End stage renal disease; D64.9 Anemia, unspecified; R19.7 Diarrhea, unspecified; R18.8 Other ascites; I48.91 Unspecified atrial fibrillation; Z99.2 Dependence on renal dialysis; Z88.2 Allergy status to sulfonamides; Z88.0 Allergy status to penicillin; Z88.1 Allergy status to other antibiotic agents; Z91.041 Radiographic dye allergy status; Z88.8 Allergy status to other drugs, medicaments and biological substances; Z79.01 Long term (current) 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s
CPT/HCPCS: 36415; 71045; 74176; 80053; 82140; 82150; 83605; 83690; 83735; 85025; 85610; 85730; 87040; 93005; 93041

== ENCOUNTER 2019-08-07 12:54 | Emergency (ER) | payer MEDICARE, MEDICAID ==
[~2019-08-07] VITALS: Ht 162.6 cm; Wt 54.4 kg
--- NOTE | 2019-08-07 13:03 | ED General ---
General Stated Complaint: VOMITTING Source of Information: Patient, EMS History of Present Illness Date Seen by Provider: August 07, 2019 Time Seen by Provider: 12:59 Initial Comments 79-year-old female brought in by EMS. EMS was called by the half-way because they report that she seemed a little bit more confused than normal. Patient was discharged 3 days ago from [facility] due to a GI bleed. Patient herself states that she "just doesn't feel good" she can't describe what that means. She does not have any pain. She denies any fever or cough. FPC reported to ems, pt had a couple small emesis. no bloody stool. no other hpi provided. Allergies and Home Medications Allergies Coded Allergies: povidone-iodine (Verified Allergy, Mild, 07/05/19) ranitidine (Verified Allergy, Mild, 07/05/19) soap (Verified Allergy, Mild, 07/05/19) tetracycline (Verified Allergy, Mild, 07/05/19) Penicillins (Verified Allergy, Unknown, 07/05/19) Sulfa (Sulfonamide Antibiotics) (Verified Allergy, Unknown, 07/05/19) Uncoded Allergies: NARCOTIC (Allergy, Mild, 12/01/16) Home Medications Apixaban 2.5 Mg Tablet, 2.5 MG PO BID, (Reported) Calcium Carbonate 300 Mg Tab.chew, 300 MG PO UD PRN for HEARTBURN, (Reported) Cetirizine HCl 10 Mg Tablet, 10 MG PO DAILY, (Reported) Cinacalcet HCl 90 Mg Tablet, 90 MG PO BID, (Reported) Flecainide Acetate 50 Mg Tablet, 50 MG PO BID, (Reported) Lactobacillus Rhamnosus GG 1 Each Capsule, 1 EACH PO DAILY, (Reported) Loperamide HCl 2 Mg Capsule, 2 MG PO UD PRN for DIARRHEA, (Reported) Mirtazapine 15 Mg Tablet, 7.5 MG PO DAILY, (Reported) take 1/2 of 15mg tab Multivitamin 1 Each Tablet, 1 EACH PO DAILY, (Reported) Sevelamer Carbonate 800 Mg Tablet, 1,600 MG PO TIDWM, (Reported) TAKES 2 (800 MG) TABLETS Tramadol HCl 50 Mg Tablet, 50 MG PO Q6H PRN for PAIN Prescribed by: LEONIE GARCIA on 06/11/19 0876 Patient Home Medication List Home Medication List Reviewed: Yes Review of Systems Review of Systems Constitutional: No chills, No fever; malaise EENTM: no symptoms reported Respiratory: no symptoms reported Cardiovascular: no symptoms reported Gastrointestinal: no symptoms reported Genitourinary: no symptoms reported Musculoskeletal: no symptoms reported Skin: no symptoms reported Psychiatric/Neurological: No Symptoms Reported Past Svnzwyr-Owzekp-Drzogm Hx Past Med/Social Hx: Reviewed Nursing Past Med/Soc Hx Patient Social History 2nd Hand Smoke Exposure: No Recent Hopitalizations: No Immunizations Up To Date Tetanus Booster (TDap): Unknown Date of Pneumonia Vaccine: Jan 04, 2012 Date of Influenza Vaccine: Dec 28, 2018 Seasonal Allergies Seasonal Allergies: No Past Medical History Surgeries: Yes (DIALYSIS GRAFT/SHUNT RIGHT UPPER ARM; RIGHT KNEE TUMOR REMOVAL ) Appendectomy, Dialysis, Hysterectomy, Orthopedic, Tonsillectomy, Vascular Surgery Respiratory: Yes COPD Currently Using CPAP: No Currently Using BIPAP: No Cardiac: Yes Atrial Fibrillation, Heart Murmur, High Cholesterol, Hypertension, Irregular Heartbeat Neurological: No Reproductive Disorders: No [employer] History: Menopausal Genitourinary: Yes Renal Failure, Dialysis Gastrointestinal: Yes (abdominal ascites) Chronic Diarrhea Musculoskeletal: Yes Arthritis, Fractures Endocrine: No HEENT: No Cancer: No Psychosocial: No Integumentary: No Blood Disorders: No Adverse Reaction/Blood Tranf: No Family Medical History Patient reports no known family medical history. No Pertinent Family Hx PSH: -07/07/19--EGD/ESOPHAGEAL DILATION AND PARACENTESIS -MULTIPLE EGD'S -MULTIPLE PARACENTESIS Physical Exam Vital Signs Vital Signs - First Documented 08/07/19 13:01 Temp 36.1 Pulse 57 Resp 19 B/P (MAP) 126/53 (77) O2 Delivery Room Air Capillary Refill : Height, Weight, BMI Height: 5'7.00" Weight: 110lbs. 0oz. 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 as Tested Skin: Normal Color, Warm/Dry Focused Exam Lactate Level 08/07/19 14:03: Lactic Acid Level Laboratory Tests Test 08/07/19 14:03 Progress/Results/Core Measures Suspected Sepsis SIRS Temperature: Pulse: Respiratory Rate: Laboratory Tests 08/07/19 13:01: White Blood Count 8.8 Blood Pressure / Mean: 08/07/19 14:03: Laboratory Tests 08/07/19 13:01: Creatinine 5.30H, Platelet Count 284, Total Bilirubin 0.4 Results/Orders Lab Results Laboratory Tests Test 08/07/19 13:01 08/07/19 13:27 08/07/19 14:03 Range/Units White Blood Count 8.8 4.3-11.0 10^3/uL Red Blood Count 2.27 L 4.35-5.85 10^6/uL Hemoglobin 7.0 L 11.5-16.0 G/DL Hematocrit 23 L 35-52 % Mean Corpuscular Volume 101 H 80-99 FL Mean Corpuscular Hemoglobin 31 25-34 PG Mean Corpuscular Hemoglobin Concent 31 L 32-36 G/DL Red Cell Distribution Width 17.6 H 10.0-14.5 % Platelet Count 284 130-400 10^3/uL Mean Platelet Volume 10.0 7.4-10.4 FL Neutrophils (%) (Auto) 77 H 42-75 % Lymphocytes (%) (Auto) 14 12-44 % Monocytes (%) (Auto) 7 0-12 % Eosinophils (%) (Auto) 1 0-10 % Basophils (%) (Auto) 0 0-10 % Neutrophils # (Auto) 6.8 1.8-7.8 X 10^3 Lymphocytes # (Auto) 1.3 1.0-4.0 X 10^3 Monocytes # (Auto) 0.6 0.0-1.0 X 10^3 Eosinophils # (Auto) 0.1 0.0-0.3 10^3/uL Basophils # (Auto) 0.0 0.0-0.1 10^3/uL Sodium Level 138 135-145 MMOL/L Potassium Level 5.4 H 3.6-5.0 MMOL/L Chloride Level 99 98-107 MMOL/L Carbon Dioxide Level 27 21-32 MMOL/L Anion Gap 12 5-14 MMOL/L Blood Urea Nitrogen 87 H 7-18 MG/DL Creatinine 5.30 H 0.60-1.30 MG/DL Estimat Glomerular Filtration Rate 8 BUN/Creatinine Ratio 16 Glucose Level 102 70-105 MG/DL Calcium Level 7.6 L 8.5-10.1 MG/DL Corrected Calcium 8.2 L 8.5-10.1 MG/DL Magnesium Level 2.6 H 1.6-2.4 MG/DL Total Bilirubin 0.4 0.1-1.0 MG/DL Aspartate Amino Transf (AST/SGOT) 11 5-34 U/L Alanine Aminotransferase (ALT/SGPT) < 6 0-55 U/L Alkaline Phosphatase 95 40-136 U/L Troponin I < 0.028 <0.028 NG/ML Total Protein 5.3 L 6.4-8.2 GM/DL Albumin 3.3 3.2-4.5 GM/DL Glucometer 99 70-110 MG/DL My Orders Orders - TOY GONZALES DO Acute Abd Series (08/07/19 13:04) Cbc With Automated Diff (08/07/19 13:04) Comprehensive Metabolic Panel (08/07/19 13:04) Lactic Acid Analyzer (08/07/19 13:04) Magnesium (08/07/19 13:04) Troponin I (08/07/19 13:04) Ua Culture If Indicated (08/07/19 13:04) Accucheck Stat ONCE (08/07/19 13:04) Ed Iv/Invasive Line Start (08/07/19 13:04) Vital Signs/I&O 08/07/19 13:01 Temp 36.1 Pulse 57 Resp 19 B/P (MAP) 126/53 (77) O2 Delivery Room Air Capillary Refill : Departure Impression Primary Impression: Acute anemia Additional Impression: Confusion Disposition: 02 XFER SHT-TRM HOSP Condition: Stable Transfer Transfer Reason: Exceeds level of care Time Spoke to Accepting Phy: 14:15 Transfer Progress Notes Patient with a hemoglobin of approximately 9 on 08/05/2019. Patient with a hemoglobin of 7 today. Due to patient's acute anemia and possible confusion we will transfer back to [place] since she is a dialysis patient and we are unable to do dialysis here in the ER. Departure-Patient Inst. Referrals: NALLELY SOLIMAN MD (PCP/Family) Primary Care Physician TOY GONZALES DO August 07, 2019 13:03
[2019-08-07 13:10] LABS: BASOPHILS % (AUTO) 0 % (0-10); EOSINOPHILS # (AUTO) 0.1 10^3/uL (0.0-0.3); EOSINOPHILS % (AUTO) 1 % (0-10); HEMATOCRIT 23 % (35-52); LYMPHOCYTES # (AUTO) 1.3 X 10^3 (1.0-4.0); LYMPHOCYTES % (AUTO) 14 % (12-44); MEAN CORPUSCULAR HEMOGLOBIN 31 PG (25-34); MEAN CORPUSCULAR HGB CONC 31 G/DL (32-36); MEAN CORPUSCULAR VOLUME 101 FL (80-99); MONOCYTES # (AUTO) 0.6 X 10^3 (0.0-1.0); MONOCYTES % (AUTO) 7 % (0-12); NEUTROPHILS # (AUTO) 6.8 X 10^3 (1.8-7.8); NEUTROPHILS % (AUTO) 77 % (42-75); PLATELET COUNT 284 10^3/uL (130-400); RED CELL DISTRIBUTION WIDTH 17.6 % (10.0-14.5); WHITE BLOOD COUNT 8.8 10^3/uL (4.3-11.0)
[2019-08-07 13:23] LABS: ALBUMIN 3.3 GM/DL (3.2-4.5); CHLORIDE 99 MMOL/L (98-107); POTASSIUM 5.4 MMOL/L (3.6-5.0); SODIUM 138 MMOL/L (135-145)
[2019-08-07 13:24] LABS: CALCIUM 7.6 MG/DL (8.5-10.1)
[2019-08-07 13:25] LABS: GLUCOSE 102 MG/DL (70-105); TOTAL PROTEIN 5.3 GM/DL (6.4-8.2)
[2019-08-07 13:26] LABS: CARBON DIOXIDE 27 MMOL/L (21-32)
[2019-08-07 13:27] LABS: BILIRUBIN,TOTAL 0.4 MG/DL (0.1-1.0)
[2019-08-07 13:29] LABS: ALKALINE PHOSPHATASE 95 U/L (40-136); GFR ESTIMATED 8
[2019-08-07 13:30] LABS: BUN/CREATININE RATIO 16
[2019-08-07 13:32] LABS: ALANINE AMINOTRANSFERASE < 6 U/L (0-55); MAGNESIUM 2.6 MG/DL (1.6-2.4)
--- NOTE | 2019-08-07 13:58 | Diagnostic Imaging Report ---
INDICATION: Vomiting blood. TIME OF EXAM: 01:41 p.m. COMPARISON: Comparison is made with prior chest from 07/24/2019. FINDINGS: The heart is enlarged but stable. The lungs appear to be clear. No infiltrates are detected. No pneumothorax is identified. There does appear to be a small amount of pleural fluid in the right base. Images of the abdomen are without free air. Bowel gas pattern appears to be nonobstructed. No pathologic calcifications are seen. IMPRESSION: Small right pleural effusion. Otherwise, unremarkable abdominal series. Dictated by: Dictated on workstation # [id number]
[2019-08-07] MEDS ORDERED: SOD POLYSTERENE 15 GM/60 ML (KAYEXALATE) UNIT DOSE PO ONE (14:30)
[2019-08-07] MEDS ORDERED: RT-ALBUTEROL SULF 2.5 MG/3 ML PRE-MIX VIAL INH ONE (14:30)
--- OUTSIDE RECORDS SUMMARY | 2019-08-07 15:58 | XMS REPORT | Clinical Summary ---
Author Author [facility] Organization [facility] Address Unknown Phone Unavailable Care Team Providers Care Hide Spreader Name Role Phone Aric Escoto MD PCP Martine Blanca MD Unavailable Unavailable Source Comments Some departments are not documenting in the electronic medical record. If you d o not see the information that you expected, contact Release of Information in [facility] [employer] department at [phone] for further assistan ce in locating additional records.[facility] Allergies Comments Active Allergy Reactions Severity Noted [...] MEDICARE MEDICARE xxxxxxxxxx 2005-P TRANSPLANT resent [place] xxxxxxxx 2013- MEDICAID Present [facility]/[place] xxxxxxxxx 05/25/2013 - [place] Present HEALTH/SNF /HALF-WAY [facility] Transplant Self 1940 [address] ([address]) [address] [place] [phone] (Work) Advance Directives Patient Practice Billing Associate 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
--- OUTSIDE RECORDS SUMMARY | 2019-08-07 16:02 | XMS REPORT | Continuity of Care Document ---
Demographics Preferred Language Unknown Marital Status Unknown Jainism Affiliation Unknown Race Unknown Ethnic Group Unknown Author Organization Unknown Address Unknown Phone Unavailable Allergies Active Description Code Type Severity Reaction Onset Reported/Identified Relationship to Patient Clinical Status Yes No Known Drug Allergies [id number] Drug Allergy Unknown N/A 02/03/2016 Yes NARCOTIC NARCOTIC Mild N/A 12/01/2016 Yes povidone-iodine [id number] D rug Allergy Mild N/A 07/05/2019 Yes ranitidine [id number] Drug Allerg y Mild N/A 07/05/2019 Yes soap [id number] Drug Allergy Mild N/A 07/05/2019 Yes tetracycline [id number] Drug Allergy Mild N/A 07/05/2019 Yes Penicillins [id number] Drug Aller gy Unknown N/A 07/05/2019 Yes Sulfa (Sulfonamide Antibiotics) [id number] Drug Allergy Unknown N/A 020 Medications [...] UNSPECIFIED 02/12/2016 SANDRA MASON MD Ot 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 9 ANEMIA, UNSPECIFIED 10/27/2016 ENRIOC LINDSEY MD Ot N18. 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 12/08/2016 ARLEEN LIND [...] ENCOUNTER 12/09/2016 ARLEEN LIND MD Ot Y92.538 [facility] ESTABLISH 12/09/2016 ARLEEN LIND MD Ot Z79.01 RETIREMENT (CURRENT) USE OF ANTICOAGULANT 12/09/2016 ARLEEN LIND [...] E78.00 PURE HYPERCHOLESTEROLEMIA, UNSPECIFIED 04/20/2017 ANDREW SIERRA GENERAL MANAGER [employer] Ot I10 ESSENTIAL (PRIMARY) HYPERTENSION 04/20/2017 ANDREW SIERRA GENERAL MANAGER [employer]AND DEPARTMENT Ot I48.91 UNSPECIFIED ATRIAL FIBRILLATION 04/20/2017 ANDREW SIERRA APRN Ot T82.838A HEMORRHAGE DUE TO VASCULAR PROSTH DEV/GR 04/20/2017 ANDREW SIERRA GENERAL MANAGER [employer]AND DEPARTMENT Ot Z87.81 PERSONAL HISTORY OF (HEALED) TRAUMATIC [...] Ot Z91.041 RADIOGRAPHIC DYE ALLERGY STATUS 04/15/2018 NADREW SIERRA APRN Ot Z99 .2 DEPENDENCE ON [...] EDEMA 09/07/2018 SEGUN CORDOVA MD Ot 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 09/07/2018 SEGUN CORDOVA [...] EDEMA 09/09/2018 SEGUN CORDOVA MD, Ot 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 8 OTHER ASCITES 01/02/2019 PATRICOI TEIXEIRA DO Ot Z01.818 ENCOUNTER FOR OTHER [...] 01/06/2019 PATRICIO TEIXEIRA DO Ot Z79. 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 82 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 OF ASPIRIN 01/06/2019 PATRICIO TEIXEIRA [...] 6 END STAGE RENAL DISEASE 01/06/2019 PATRICIO TEXIEIRA DO Ot R19. 7 DIARRHEA, UNSPECIFIED 01/06/2019 PATRICIO TEIXEIRA DO Ot Z79. 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 82 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 OF ASPIRIN 01/06/2019 PATRICIO TEIXEIRA [...] CHRONIC OBSTRUCTIVE PULMONARY DISEASE, U 01/11/2019 PATRICIO TEIEXIRA DO Ot K63. 5 POLYP OF COLON 01/11/2019 PATRICIO TEIXEIRA DO Ot K63. 89 OTHER SPECIFIED DISEASES OF INTESTINE 01/11/2019 PATRICIO TEIXEIRA DO Ot N18. 6 END STAGE RENAL DISEASE 01/11/2019 PATRICIO TEIXEIRA DO Ot R19. 7 DIARRHEA, UNSPECIFIED 01/11/2019 PATRICIO TEIXEIRA DO Ot Z79. 01 RETIREMENT (CURRENT) USE OF ANTICOAGULANT 01/11/2019 PATRICIO TEIXEIRA DO Ot Z79. 82 RETIREMENT (CURRENT) USE OF ASPIRIN 01/11/2019 PATRICIO TEIXEIRA [...] I50.32 CHRONIC DIASTOLIC (CONGESTIVE) HEART BIB 02/17/2019 [place] PATRICIO FERNANDEZ Ot R18. 8 OTHER ASCITES 02/28/2019 MAITE [...] ASCITES 06/06/2019 ANDREW SIERRA APRN Ot Z79.01 RETIREMENT (CURRENT) USE OF ANTICOAGULANT 06/06/2019 ANDREW SIERRA APRN Ot Z88 .0 ALLERGY STATUS TO PENICILLIN 06/06/2019 ANDREW SIERRA APRN Ot Z88 .1 ALLERGY STATUS TO OTHER ANTIBIOTIC AGENT 06/06/2019 ANDREW SIERRA GENERAL MANAGER LAND DEPARTMENT Ot Z88 .2 ALLERGY STATUS TO SULFONAMIDES STATUS 06/06/2019 ANDREW SIERRA GENERAL MANAGER LAND DEPARTMENT Ot Z88 .8 ALLERGY STATUS TO OTH DRUG/MEDS/BIOL SUB 06/06/2019 ANDREW SIERRA GENERAL MANAGER LAND DEPARTMENT Ot Z99 .2 DEPENDENCE ON RENAL DIALYSIS [...] DISEASE 06/09/2019 SEGUN CORDOVA MD Ot 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 06/09/2019 SEGUN CORDOVA [...] DISEASE 06/13/2019 SEGUN CORDOVA MD Ot 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 06/13/2019 SEGUN CORDOVA [...] DISEASE 06/15/2019 SEGUN CORDOVA MD, Ot Z79.01 RETIREMENT (CURRENT) USE OF ANTICOAGULANT 06/15/2019 SEGUN CORDOVA MD, Ot Z88.0 ALLERGY STATUS TO PENICILLIN 06/15/2019 SEGUN CORDOVA MD, Ot Z88.1 ALLERGY STATUS TO OTHER ANTIBIOTIC AGENT 06/15/2019 SEGUN CORDOVA MD, Ot Z88.2 ALLERGY STATUS TO SULFONAMIDES STATUS 06/15/2019 SEGUN CORDOVA MD, Ot Z88.8 ALLERGY STATUS TO OTH DRUG/MEDS/BIOL SUB 06/15/2019 SEGUN CORDOVA MD Ot 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 ON RENAL DIALYSIS 06/26/2019 CHEYANNE WELLS GENERAL MANAGER LAND DEPARTMENT Ot K59.9 FUNCTIONAL INTESTINAL DISORDER, UNSPECIF 06/26/2019 CHEYANNE WELLS GENERAL MANAGER LAND DEPARTMENT Ot K80.20 CALCULUS OF GALLBLADDER W/O CHOLECYSTITI [...] MD, Ot I25.10 ATHSCL HEART DISEASE OF [place] CORONARY 07/12/2019 DARA DESAI MD, Ot I48.91 [...] ASCITES 07/12/2019 DARA DESAI MD, Ot 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 07/12/2019 DARA DESAI MD, Ot Z79.82 RETIREMENT (CURRENT) USE OF ASPIRIN 07/12/2019 DARA DESAI MD, Ot Z79.89 9 OTHER RETIREMENT (CURRENT) DRUG THERAPY 07/12/2019 DARA DESAI MD, [...] MD, Ot I25.10 ATHSCL HEART DISEASE OF [place] CORONARY 07/18/2019 DARA DESAI MD, Ot I48.91 [...] ASCITES 07/18/2019 DARA DESAI MD, Ot 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 07/18/2019 DARA DESAI MD, Ot Z79.82 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 OF ASPIRIN 07/18/2019 DARA DESAI MD, Ot Z79.89 9 OTHER RETIREMENT (CURRENT) DRUG THERAPY 07/18/2019 DARA DESAI MD, Ot Z96.65 2 PRESENCE OF LEFT ARTIFICIAL KNEE JOINT 07/18/2019 DARA DESAI MD, Ot 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 ON RENAL DIALYSIS 07/26/2019 MARQUEZDavid FERNANDEZ NAFISA K Ot D64.9 ANEMIA, UNSPECIFIED 07/26/2019 MARQUEZ FERNANDEZ NAIFSA K Ot I12.0 HYP CHR KIDNEY DISEASE W STAGE 5 CHR KID 07/26/2019 MARQUEZ DO, NAFISA K Ot I48.91 UNSPECIFIED ATRIAL FIBRILLATION 07/26/2019 MARQUEZ DO, NAFISA K Ot N18.6 END STAGE RENAL DISEASE 07/26/2019 MARQUEZ DO, NAFISA K Ot R11.2 NAUSEA WITH VOMITING, UNSPECIFIED 07/26/2019 MARQUEZ DO, NAFISA K Ot R18.8 OTHER ASCITES 07/26/2019 MARQUEZ DO, NAFISA K Ot R19.7 DIARRHEA, UNSPECIFIED 07/26/2019 MARQUEZ DO, NAFISA K Ot Z79.01 RETIREMENT (CURRENT) USE OF ANTICOAGULANT 07/26/2019 MARQUEZ DO, NAFISA K Ot Z88.0 ALLERGY STATUS TO PENICILLIN 07/26/2019 MARQUEZ DO, NAFISA K Ot Z88.1 ALLERGY STATUS TO OTHER ANTIBIOTIC AGENT 07/26/2019 MARQUEZ DO, NAFISA K Ot Z88.2 ALLERGY STATUS TO SULFONAMIDES STATUS 07/26/2019 MARQUEZ DO, NAFISA K Ot Z88.8 ALLERGY STATUS TO OTH DRUG/MEDS/BIOL SUB 07/26/2019 MARQUEZ DO, NAFISA K Ot Z91.041 RADIOGRAPHIC DYE ALLERGY STATUS 07/26/2019 MARQUEZ DO, NAFISA K Ot 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 ON RENAL DIALYSIS 08/03/2019 MARQUEZ DO, NAFISA K Ot D64.9 ANEMIA, UNSPECIFIED 08/03/2019 MARQUEZ DO, NAFISA K Ot I12.0 HYP [facility] KIDNEY DISEASE W STAGE 5 CHR KID 08/03/2019 MARQUEZ DO, NAFISA K Ot I48.91 UNSPECIFIED ATRIAL FIBRILLATION 08/03/2019 MARQUEZ DO, NAFISA K Ot N18.6 END STAGE RENAL DISEASE 08/03/2019 MARQUEZ DO, NAFISA K Ot R11.2 NAUSEA WITH VOMITING, UNSPECIFIED 08/03/2019 MARQUEZ DO, NAFISA K Ot R18.8 OTHER ASCITES 08/03/2019 MARQUEZ DO, NAFISA K Ot R19.7 DIARRHEA, UNSPECIFIED 08/03/2019 MARQUEZ DO, NAFISA K Ot 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 08/03/2019 MARQUEZ DO, NAFISA K Ot Z88.0 ALLERGY STATUS TO PENICILLIN 08/03/2019 MARQUEZ DO, NAFISA K Ot Z88.1 ALLERGY STATUS TO OTHER ANTIBIOTIC AGENT 08/03/2019 MARQUEZ DO, NAFISA K Ot Z88.2 ALLERGY STATUS TO SULFONAMIDES STATUS 08/03/2019 MARQUEZNAFISA Hernandez DO Ot Z88.8 ALLERGY STATUS TO OTH DRUG/MEDS/BIOL SUB 08/03/2019 NAFISA ZAYAS DO Ot Z91.041 RADIOGRAPHIC DYE ALLERGY STATUS 08/03/2019 NAFISA ZAYAS DO Ot 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 ON RENAL DIALYSIS Procedures [...] 0.0 10*3/uL 0.0-0.1 Comprehensive metabolic panel - 11/07/16 18:38 Serum or plasma sodium measurement (moles/volume) [...] ABO+Rh group OP NRG Transfusion band number [id number] NR Blood group antibody screen NEGATIVE NR G [...] INFLUENZA A AND B ANTIGENS BY IA [facility] Automated blood complete blood count (he mogram) [...] anisocytosis detection by light microscopy S LIGHT [facility] Comprehensive metabolic panel - 04/13/18 15:30 Serum [...] INFLUENZA A AND B ANTIGENS BY IA [facility] THYROID STIMULATING HORMONE - 04/13/18 1 5:30 THYROID STIMULATING HORMONE 3.17 u[iU]/mL 0.35-4.94 Serum or plasma thyroxine (T4) free dayne urement (mass/volume) - 04/13/18 15:30 Serum or plasma thyroxine (T4) free measurement (mass/ volume) 0.92 ng/dL 0.70-1.48 Bacterial blood culture - 04/13/18 15:30 Bacterial blood culture NG NRG Bacterial blood culture - 04/13/18 16:35 Bacterial blood culture NG [facility] Complete blood count (CBC) with automate d [...] plasma calcium measurement (mass/volume) 8.2 mg/dL 8.5-10.1 Bacterial blood culture - 07/24/19 10:02 Bacterial blood culture NG NRG Complete blood [...] (moles/volume) 16 mmol/L 5-14 Serum or plasma urea nitrogen measurement (mass/volume ) 73 mg/dL 7-18 Serum or plasma creatinine measurement (mass/volume) 5.46 mg/dL 0.60-1.30 Serum or plasma urea nitrogen/creatinine mass ratio 13 NRG Serum or plasma creatinine measurement w ith calculation of estimated glomerular filtration rate 8 NRG Serum or plasma glucose measurement (mass/volume) 93 mg/dL 70-105 Serum or plasma calcium measurement (mass/volume) 8.3 mg/dL 8.5-10.1 Serum or plasma total bilirubin measurement (mass/volu me) 0.4 mg/dL 0.1-1.0 Serum or plasma alkaline phosphatase oj surement (enzymatic activity/volume) 106 U/L 40-136 Serum or plasma aspartate aminotransfera se measurement (enzymatic activity/volume) 12 U/L 5-34 Serum or plasma alanine aminotransferase measurement (enzymatic activity/volume) 7 U/L 0-55 Serum or plasma protein measurement (mass/volume) 6.3 g/dL 6.4-8.2 Serum or plasma albumin measurement (mass/volume) 3.5 g/dL 3.2-4.5 CALCIUM CORRECTED 8.7 mg/dL 8.5-10.1 Blood lactic acid measurement (moles/vol ume) - 07/24/19 10:03 Blood lactic acid measurement (moles/volume) 1.74 mmol/L 0.50-2.00 Magnesium - 07/24/19 10:03 Magnesium 2.7 mg/dL 1.6-2.4 Serum or plasma amylase measurement (enz ymatic activity/volume) - 07/24/19 10:03 Serum or plasma amylase measurement (enzymatic activit y/volume) 127 U/L 25-125 PT panel in platelet poor plasma by [...] poor plasma bycoagulation assay 25 s 24-35 Lipase - 07/24/19 10:03 Lipase 60 U/L 8-78 Ammonia - 07/24/19 10:03 Ammonia 22 umol/L 11-32 [id number] - 07/24/19 10:03 [id number] SPECIMEN AVAILABLE [facility] Bacterial blood culture - 07/24/19 11:30 Bacterial blood culture [facility] Complete blood count (CBC) with automate d white blood cell (WBC) differential - 08/07/19 13:01 Blood leukocytes automated count (number/volume) 8.8 10*3/uL 4.3-11.0 Blood erythrocytes automated count (number/volume) 2.27 10*6/uL 4.35-5.85 Venous blood hemoglobin measurement (mass/volume) 7.0 g/dL 11.5-16.0 Blood hematocrit (volume fraction) 23 % 35-52 Automated erythrocyte mean corpuscular volume 101 [foz_us] 80-99 Automated erythrocyte mean corpuscular h emoglobin (mass per erythrocyte) 31 pg 25-34 Automated erythrocyte mean corpuscular h emoglobin concentration measurement (mass/volume) 31 g/dL 32-36 Automated erythrocyte distribution width ratio 17. 6 % 10.0- 14.5 Automated blood platelet count (count/volume) 284 10*3/uL 130-400 Automated blood platelet mean volume measurement 10.0 [foz_us] 7.4-10.4 Automated blood neutrophils/100 leukocytes 77 % 42-75 Automated blood lymphocytes/100 leukocytes 14 % 12-44 Blood monocytes/100 leukocytes 7 % 0-12 Automated blood eosinophils/100 leukocytes 1 % 0-10 Automated blood basophils/100 leukocytes 0 % 0-10 Blood neutrophils automated count (number/volume) 6.8 10*3 1.8-7.8 Blood lymphocytes automated count (number/volume) 1.3 10*3 1.0-4.0 Blood monocytes automated count (number/volume) 0. 6 10*3 0.0-1.0 Automated eosinophil count 0.1 10*3/uL 0 .0-0.3 Automated blood basophil count (count/volume) 0.0 10*3/uL 0.0-0.1 Comprehensive metabolic panel - 08/07/19 13:01 Serum or plasma sodium measurement (moles/volume) 138 mmol/L 135-145 Serum or plasma potassium measurement (moles/volume) 5.4 mmol/L 3.6-5.0 Serum or plasma chloride measurement (moles/volume) 99 mmol/L 98-107 Carbon dioxide 27 mmol/L 21-32 Serum or plasma anion gap determination (moles/volume) 12 mmol/L 5-14 Serum or plasma urea nitrogen measurement (mass/volume ) 87 mg/dL 7-18 Serum or plasma creatinine measurement (mass/volume) 5.30 mg/dL 0.60-1.30 Serum or plasma urea nitrogen/creatinine mass ratio 16 NRG Serum or plasma creatinine measurement w ith calculation of estimated glomerular filtration rate 8 NRG Serum or plasma glucose measurement (mass/volume) 102 mg/dL 70-105 Serum or plasma calcium measurement (mass/volume) 7.6 mg/dL 8.5-10.1 Serum or plasma total bilirubin measurement (mass/volu me) 0.4 mg/dL 0.1-1.0 Serum or plasma alkaline phosphatase oj surement (enzymatic activity/volume) 95 U/L 40-136 Serum or plasma aspartate aminotransfera se measurement (enzymatic activity/volume) 11 U/L 5-34 Serum or plasma alanine aminotransferase measurement (enzymatic activity/volume) < U/L 0-55 Serum or plasma protein measurement (mass/volume) 5.3 g/dL 6.4-8.2 Serum or plasma albumin measurement (mass/volume) 3.3 g/dL 3.2-4.5 CALCIUM CORRECTED 8.2 mg/dL 8.5-10.1 Magnesium - 08/07/19 13:01 Magnesium 2.6 mg/dL 1.6-2.4 Serum or plasma troponin i.cardiac measu rement (mass/volume) - 08/07/19 13:01 Serum or plasma troponin i.cardiac measurement (mass/v olume) < ng/mL <0.028 Capillary blood glucose measurement by g lucometer (mass/volume) - 08/07/19 13:27 Capillary blood glucose measurement by glucometer (mas s/volume) 99 mg/dL 70-110 Blood lactic acid measurement (moles/vol ume) - 08/07/19 14:03 Blood lactic acid measurement (moles/volume) 1.21 mmol/L 0.50-2.00 Encounters ACCT No. Visit Date/Time Discharge Status Pt. Type Provider Facility Loc./Unit Complaint [id number] 07/10/2016 12:09:00 Document Registration [id number] 03/27/2016 08:06:00 Document Registration [id number] 05/02/2019 14:40:00 05/02/2019 23:59: 59 [facility] Outpatient NALLELY SOLIMAN [facility] [id number] 10/31/2018 13:40:00 Document Registration [id number] 06/14/2017 13:00:00 Document Registration [id number] 07/24/2019 09:52:00 12:50:00 DIS Outpatient NAFISA ZAYAS DO, V [facility] ER ABD ISSUES [id number] 07/07/2019 09:55:00 23:59:59 CLS Outpatient DARA DESAI MD [facility] RAD ABD PAIN [id number] 07/05/2019 05:37:00 10:13:00 DIS Outpatient DARA DESAI MD [facility] PREOP EGD [id number] 06/09/2019 09:51:00 11:34:00 DIS Emergency ART BAER, SEGUN Asher [facility] ER PROCEDURE SITE BLEEDING [id number] 06/08/2019 13:35:00 23:59:59 CLS Outpatient PATRICIO TEIXEIRA DO [facility] RAD OTHER ASCITES [id number] 06/06/2019 11:17:00 13:24:00 DIS Emergency ANDREW SIERRA GENERAL MANAGER [employer]AND DEPARTMENT [facility] ER ABD PAIN [id number] 06/02/2019 07:35:00 23:59:59 CLS Outpatient CHEYANNE WELLS GENERAL MANAGER [employer]AND DEPARTMENT [facility] RAD ABD PAIN,DIARRH EA [id number] 01/27/2019 11:27:00 23:59:59 CLS Outpatient PATRICIO TEIXEIRA DO [facility] RAD RECURRENT ASCITIES [id number] 01/24/2019 13:43:00 23:59:59 CLS Outpatient Ranjit ARORA MD [facility] CARD MITRAL REGURGITATION [id number] 01/06/2019 09:13:00 12:00:00 DIS Outpatient PATRICIO TEIXEIRA DO [facility] ENDO DIARRHEA [id number] 01/02/2019 05:38:00 14:51:00 DIS Outpatient PATRICIO TEIXEIRA DO [facility] PREOP COLONOSCOPY [id number] 12/16/2018 08:46:00 23:59:59 CLS Outpatient PATRICIO TEIXEIRA DO [facility] SDC ASCITIES [id number] 12/06/2018 15:44:00 17:59:00 DIS Emergency ART BAER, SEGUN Asher [facility] ER CP/SOB [id number] 11/04/2018 18:02:00 23:12:00 DIS Emergency ENRICO LINDSEY MD [facility] ER SOA [id number] 10/10/2018 11:29:00 13:12:00 DIS Emergency ANDREW SIERRA APRN [facility] ER ARM SWELLING [id number] 09/07/2018 16:29:00 19:09:00 DIS Emergency SEGUN CORDOVA MD [facility] ER LEG SWELLING [id number] 08/10/2018 17:09:00 22:30:00 DIS Emergency LUTHER HICKS [facility] ER SOA [id number] 08/08/2018 13:10:00 15:37:00 DIS Emergency ENRICO LINDSEY MD [facility] ER N/V [id number] 04/13/2018 15:23:00 18:00:00 DIS Emergency ANDREW SIERRA APRN [facility] ER WEAKNESS [id number] 05/29/2017 18:06:00 23:10:00 DIS Emergency SANDRA MASON MD [facility] ER SOA [id number] 04/20/2017 16:22:00 18:36:00 DIS Emergency ANDREW SIERRA APRN [facility] ER BLEEDING,NEED STITCHES [id number] 04/12/2017 12:28:00 018 14:55:00 DIS Emergency ENRICO LINDSEY MD [facility] ER SOA [id number] 04/01/2017 11:16:00 018 23:59:59 CLS Outpatient NALLELY SOLIMAN MD [facility] D64.9 [id number] 03/07/2017 20:03:00 017 00:39:00 DIS Emergency ENRICO LINDSEY MD [facility] ER BACK PAIN [id number] 03/03/2017 15:45:00 017 23:59:59 CLS Preadmit Ranjit ARORA MD [facility] CARD I48.91 AF [id number] 12/05/2016 13:00:00 017 13:05:00 DIS Inpatient DIOGO BAER, ARLEEN Murillo [facility] 4TH FX L DISTAL RADIUS, FX L PELVIS [id number] 12/01/2016 11:38:00 017 23:59:59 CLS Emergency SANDRA MASON MD [facility] ER POSSIBLE SEIZUR ES [id number] 10/25/2016 08:07:00 017 10:40:00 DIS Emergency ENRICO LINDSEY MD [facility] ER DIALYSIS PORT BLEEDING [id number] 08/06/2016 09:45:00 017 23:59:59 CLS Preadmit Ranjit ARORA MD [facility] CARD AF I48.91 [id number] 07/01/2016 12:15:00 017 23:59:59 CLS Preadmit Ranjit ARORA MD [facility] CARD AF [id number] 04/01/2016 11:50:00 017 00:01:00 DIS Outpatient Ranjit ARORA MD [facility] CARD AF [id number] 02/12/2016 08:56:00 11/16/2 016 11:15:00 DIS Emergency MARLON BAER, SANDRA Wilder [facility] ER CHEST PAIN [id number] 02/03/2016 19:50:00 016 18:35:00 DIS Inpatient JOURDAN BAER, NALLELY Hatch [facility] ICU NEW ONSET ATRIAL FIB W/ RVR, ESRD ON DIALYSIS,HEAR [id number] 08/07/2019 13:13:00 Document Registration [id number] 06/11/2019 15:57:00 Document Registration
[2019-08-07 16:03] VITALS: BP 114/49
== END 2019-08-07 16:03 | disposition short-term general hospital (02) ==
LOC: EDUNIT# 12:54 → ER 12:55
DX: D64.9 Anemia, unspecified (principal); R41.0 Disorientation, unspecified; I10 Essential (primary) hypertension; I48.91 Unspecified atrial fibrillation; Z99.2 Dependence on renal dialysis; Z88.0 Allergy status to penicillin; Z88.2 Allergy status to sulfonamides; Z88.8 Allergy status to other drugs, medicaments and biological substances; Z88.1 Allergy status to other antibiotic agents; Z79.01 Long term (current) 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s
CPT/HCPCS: 36415; 74022; 80053; 82962; 83605; 83735; 84484; 85025; 94640

== ENCOUNTER 2019-08-24 12:37 | Outpatient (CLI) | payer MEDICARE, MEDICAID ==
[~2019-08-24] VITALS: Ht 162.6 cm; Wt 59.0 kg
--- NOTE | 2019-08-24 14:55 | Diagnostic Imaging Report ---
INDICATION: Ascites. All 4 quadrants of the abdomen were evaluated. There is moderate ascites in all quadrants, most marked in the left lower quadrant. This was marked on the patient's skin for Dr. Ga to perform a paracentesis. IMPRESSION: Moderate ascites. Marking was provided for paracentesis. Dictated by: Dictated on workstation # [id number]
[2019-08-24 15:35] VITALS: BP 128/45
--- NOTE | 2019-08-24 21:57 | OPERATIVE REPORT ---
DATE OF SERVICE: 08/24/2019 ATTENDING PRIMARY CARE PHYSICIAN: Dr. Ingrid Rivero. PREOPERATIVE DIAGNOSIS: Recurrent symptomatic ascites. POSTPROCEDURE DIAGNOSIS: Recurrent symptomatic ascites. PROCEDURE PERFORMED: Paracentesis. SURGEON: Dara Desai MD. ANESTHESIA: Local. ESTIMATED BLOOD LOSS: Minimal. FINDINGS: Straw yellow transudative fluid. DISPOSITION: The patient tolerated the procedure well. INDICATIONS FOR PROCEDURE: The patient is a 79-year-old female, who we have seen before in the past. She has had a history of symptomatic ascites, most likely secondary to benign disease including congestive heart failure. Her last paracentesis was done 07/07/2019. She has also had previous EGD and balloon dilatation. From a reflux esophagitis and distal esophageal stricture. She also does have a large hiatal hernia 5 cm in size. She also does have chronic kidney disease and does get dialysis three days a week. She has recurrent ascites, which makes it difficult for her to ambulate as well as to breathe at times. DESCRIPTION OF PROCEDURE: The abdomen was prepped and draped in a standard surgical fashion. Before this, an ultrasound was performed and marked in the left lower abdominal quadrant. The skin, subcutaneous tissue, muscle layers and peritoneal lining were then anesthetized using 1% lidocaine. A vertical skin incision was then made using an 11 blade. The catheter and sheath were then introduced. The catheter and trocar were then introduced withdrawing of straw yellow transudative fluid. The catheter was then advanced over the trocar without any resistance. The catheter was then connected to the band tubing and gravity drainage bag. The catheter was then cleaned and covered with Op-Site. The patient tolerated the procedure well. We will continue with drainage until she is asymptomatic or there is minimal drainage rate. We will then remove the catheter and apply Dermabond. Job ID: [id number] DocumentID: [id number] Dictated Date: 08/24/2019 14:35:44 [employer] Date: 08/24/2019 21:55:48 Dictated By: DARA DESAI MD [facility]
== END 2019-08-24 15:35 ==
LOC: RAD 12:37
PROVIDERS: ATTEND Nurse Practitioner Family
DX: R18.8 Other ascites (principal)
CPT/HCPCS: 49082; 76942

== ENCOUNTER 2019-08-24 13:20 | Outpatient (RCR) | payer MEDICARE, MEDICAID ==
[2019-08-24] MEDS ORDERED: NS IV 500 ML 500 ML IV SCH (13:30)
--- NOTE | 2019-08-24 15:35 | NUR ---
PT PRESENTED TODAY FOR A SCHEDULED PARACENTESIS. WHILE PT WAS HERE FOR PROCEDURE, ATTEMPTED TO OBTAIN TYPE AND CROSS FOR 1 UNIT OF PRBC TRANSFUSION ORDERED. PT TEARFUL AND REPORTS THAT SHE WILL NOT BE CONTINUING WITH DIALYSIS ANY LONGER, AND THAT SHE IS "DONE" WITH "EVERYTHING." PT REPORTS THAT SHE DOES NOT WANT TO HAVE THE BLOOD TRANSFUSION AND THAT SHE SPOKE WITH HER SON YESTERDAY REGARDING NO LONGER CONTINUING DIALYSIS AND BEING "DONE". DR. SOLIMAN'S NURSE KATHRYN HADLEY WAS CALLER PER [employer] AND NOTIFIED OF PATIENT REFUSING TO HAVE ANY FURTHER TREATMENTS. KATHRYN HADLEY SPOKE WITH PATIENT VIA PHONE AND DISCUSSED PT'S DESIRE TO GO ON HOSPICE FOR END OF LIFE CARE. PT REPORTS THAT SHE IS "READY TO BE DONE" AND THAT SHE HAS NO FAMILY OR ANYONE THAT SHE NEEDS TO STAY ALIVE FOR AND WOULD LIKE TO GO TO [facility]. KATHRYN HADLEY SPOKE WITH DR. SOLIMAN AND SHE WILL ARRANGE HOSPICE FOR PATIENT AND THEY WILL CALL HER AT HOME WITH FURTHER DETAILS.
== END 2019-08-24 15:35 | disposition home or self-care (01) ==
LOC: SDC 13:20
PROVIDERS: ATTEND Family Medicine
DX: N18.9 Chronic kidney disease, unspecified (principal); D63.1 Anemia in chronic kidney disease
CPT/HCPCS: 86850; 86900; 86901; 86920